=== PATIENT | female | born 1945 | race Caucasian/White ===

== ENCOUNTER 2018-07-04 09:35 | Inpatient (IN) | payer MEDICARE, OTHER, SELFPAY ==
[2018-07-04] VITALS (25 sets, daily range): BP systolic 98–130; BP diastolic 67–87; PULSE 99–112; RESP 12–31; TEMP 36.9–37.2; O2SAT 94–100; BMI 27.3; BMI 24.0
--- NOTE | 2018-07-04 09:37 | EKG12_ITS ---
Test Reason : SOB Blood Pressure : / mmHG Vent. Rate : 112 BPM Atrial Rate : 113 BPM P-R Int : 000 ms QRS Dur : 154 ms QT Int : 404 ms P-R-T Axes : 000 -87 060 degrees QTc Int : 551 ms Wide QRS rhythm Right bundle branch block Left anterior fascicular block Bifascicular block Anteroseptal infarct , age undetermined , cannot be excluded Abnormal ECG Confirmed by PORTIA SIMS, SHER ([id number]), writer editor MUNA BOYKIN ([id number]) on 07/09/2018 1:28:19 PM Referred By: AUGUST Confirmed By:SHER PEARCE MD
--- NOTE | 2018-07-04 09:37 | RAD_ITS ---
STUDY: X-RAY CHEST REASON FOR EXAM: Female, 72 years old. TECHNIQUE: COMPARISON: None. FINDINGS: The heart is not enlarged. Bilateral pleural effusion noted more so on the right side. Underlying infiltrate at either base cannot be ruled out. The apices are clear but there is mild pulmonary vascular congestion. A permanent pacemaker is seen with 2 leads in position. There is left aterial appendage closure device. Multiple metallic stitches noted along the sternum from previous surgery. Spinal fusion noted in the lower lower thoracic spine RAD/Chest 1 View (Portable) IMPRESSION: Bilateral pleural effusion more on the right side underlying infiltrate cannot be excluded Electronically Signed: Guerrero Ochoa, at 10:44 EST Tel , Service support ,
--- NOTE | 2018-07-04 09:52 | ED.DCSUM_ITS ---
- ER Visit Summary Date of Service: 07/04/18 Chief Complaint: Shortness of breath and hypoxia History of Present Illness: The patient is a 72 F who arrived by ambulance for shortness of breath. She is arousable with repeated stimulation. She does answers questions appropriately. She acknowledged that she does not wish CPR or intubation, invasive ventilation. She was spoken to regarding BiPAP and was agreeable. She recently had a pacemaker placed. According to son she had her mitral valve replaced November 2017. Her history is limited. She does acknowledge to shortness of breath, slight cough and no chest pain. Per records that accompanied her she has a history of congestive heart failure. She denied fever or chills. She denied muscle aches or joint aches. She does admit to weakness. There is no history of vomiting or diarrhea. She denies urologic symptoms. Even though patient is not alert when stimulated and ask questions she does answer questions appropriately and believes she has the capacity to make a decision regarding intubation and CPR. [facility], 2018 from home. Review of paperwork from nursing facility indicates patient has history of coronary disease, CHF, COPD, type 1 diabetes and hypercholesterolemia. Furthermore, patient is on an anticoagulant, Eliquis. Physical Examination: Vital signs remarkable blood pressure 126/73, heart rate of 112 and appears to be wide complex on the monitor. Mechanism uncertain. Respiratory 31. Pulse ox was low on nonrebreather and was placed on BiPAP. CO2 was in the low 30s. She is afebrile. HEENT exam is marked for pale conjunctival and dry mucosa. There is a well- healed mid sternotomy scar noted. There is a dressing over the recently placed pacemaker. There is no evidence of cellulitis. Lungs reveal diminished breath sounds bilaterally with inspiratory rales and expiratory wheezing. Heart is rapid. Abdomen soft nontender. No palpable cell mass abdominal bruit. There is bilateral pedal edema. Not alert but oriented to name, place and month. She moves all extremities. There is no clonus or Babinski sign. No cranial nerve deficit appreciated. Finger to nose to finger was not attempted. Test Results: White count 11.4 thousand 91% segs no bands. Hemoglobin 8.2. Electronic panel reveals slight elevation in BUN/creatinine of 25 and 1.24. Urinalysis is consistent with infection. Blood gas reveals a respiratory alkalosis with increased AA gradient. Emergency Department Course and Treatment: Patient was placed on BiPAP with marked improvement of oxygenation. ABG was ordered. Chest x-ray was ordered to determine etiology of her hypoxia and determine if this is secondary to CHF versus pneumonia. Lactate was obtained and may be elevated secondary to hypoxia. CBC was obtained to assess white count as well as H&H since she appears pale. Basic medical panel was obtained to assess electrolytes and renal function. With recent procedure wanting to entertain possibility of pulmonary embolus. If the x-ray does not reveal congestive heart failure or pneumonia she will require a CTA if renal function is sufficient. UA and culture was ordered after I was informed by nursing staff that urine appears turbid. Since patient is clinically fluid overloaded 20 of Lasix was ordered. Nitroglycerin drip was also ordered for preload reduction. Most recent blood pressure is low at 98/82. The nitroglycerin drip was held. Treatment Plan: Treat for urinary tract infection, exacerbation of CHF and transfuse if needed. Disposition: Admit to stepdown versus ICU Impression: 1. Respiratory failure with hypoxia 2. Exacerbation of congestive heart failure with bilateral pleural effusion 3. Urinary tract infection, sepsis 4. Elevated troponin suspect secondary to CHF 5. Renal insufficiency 6. History of coronary disease 7. High risk medication, Eliquis This note was generated with [employer] dictation software. It may contain incorrect words, spelling, and punctuation that were not noted in review of the chart prior to signing ED Disposition - Plan for ED Patient: Chief Complaint: Shortness of Breath Referrals: Patsy Cabrera [[employer] PROFESSIONAL] -
--- NOTE | 2018-07-04 10:01 | ED.RN ---
Addendum entered by Rachel Hernandez 07/04/18 10:28: cultures obtained and sent with iv start Original Note: upon sepsis trigger physician did not order cultures. spoke to physician, he states that he won't order cultures until lactic is back.
[2018-07-04 10:26] LABS: Absolute Neutrophil Count 10.3 X10^3/uL (2.0-7.7); Basophil# 0.03 X10^3/uL; Basophil% 0.3 % (0-1); Differential Indicated SCAN CRITERIA MET; Eosinophil# 0.06 X10^3/uL; Eosinophils% 0.5 % (0-5); Hematocrit 26.8 % (37-47); Hemoglobin 8.2 g/dl (12.0-15.0); Lymphocyte % 4.4 % (19-41); Mean Corp Hgb Conc 30.6 g/gl (32-36); Mean Corpuscular Hgb 29.1 pg (27.0-32.0); Mean Platelet Vol. 9.8 fl (6.2-12.0); Monocyte# 0.45 X10^3/uL; Monocyte% 3.9 % (0-10); Neutrophil # 10.33 X10^3/uL (2.7-7.7); Neutrophil % 90.6 % (47-70); POSITIVE COUNT NO; POSITIVE DIFFERENTIAL YES; POSITIVE MORPHOLOGY NO; Platelet Count 112 K/mm3 (150-450); RBC Distribution Width CV 18.1 % (11.6-14.6); RBC Distribution Width SD 63.4 fl (35.1-43.9); Red Blood Count 2.82 M/mm3 (4.2-5.4); White Blood Count 11.4 K/mm3 (4.4-11.0)
[2018-07-04 10:30] LABS: Mucous, Urine 0 SEEN /hpf (<or=2+); Red Blood Cells-Urine 0 SEEN /hpf (0-5); Squamous Epithelial Cells - UA 0 SEEN /hpf (5-10)
[2018-07-04 10:32] LABS: Anion Gap 9 (5-15); BUN 25 mg/dL (7-18); BUN/Creat Ratio 20.2 RATIO (10-20); Calcium,Total 7.8 mg/dL (8.5-10.1); Chloride 100 mmol/L (98-107); Creatinine, Serum 1.24 mg/dL (0.55-1.02); EST Glomerular Filtration Rate 45 mL/min (>60); Est Glom Filt Rate - Afr Amer 54 mL/min (>60); Estimated Creatinine Clearance 28.59 ml/min; Glucose 118 mg/dL (74-106); Potassium 4.4 mmol/L (3.5-5.1); Sodium Level 140 mmol/L (136-145)
[2018-07-04 10:36] LABS: Color, Urine Yellow (Yellow); Glucose, Dipstick Normal (Normal); Ketone-Dipstick 5 mg/dl (Negative); Leukocyte Esterase-Dipstick 500 /ul (Negative); Nitrite-Dipstick Positive (Negative); Occult Blood-Urine 25 /ul (Negative); Protein-Dipstick 15 mg/dl (Negative); Specific Gravity, Urine 1.015 (1.002-1.030); Urine Bilirubin Dipstick Negative (Negative); Urine Clarity Cloudy (Clear); Urine Urobilinogen Normal (Normal)
[2018-07-04 10:38] LABS: Lactic Acid 1.2 mmol/L (0.4-2.0)
[2018-07-04 10:46] LABS: Base Excess 5 mmol/L (-2 to +2); Bicarbonate 27.6 mmol/L (22-26); Blood Gas Specimen Type ART; EPAP 10; FI02 80; PO2 146 mmHG (75-100); RR 12; SITE R Radial; SO2 100 % (95-99); Time Given 1040; Total Carbon Dioxide 28 mmol/L; pCO2 30.6 mmHg (35-45); pH 7.56 (7.35-7.45)
[2018-07-04 10:47] LABS: International Normalized Ratio 1.2; Prothrombin Time (Protime)PT. 14.9 SECONDS (11.7-14.9)
[2018-07-04 10:50] LABS: Bacteria 1+ /hpf (None Seen); White Blood Cells >100 SEEN /hpf (0-5)
[2018-07-04 10:53] LABS: BNP,B-Type NATRIURETIC PEPTIDE 634.9 pg/mL (0-100)
[2018-07-04] MEDS: Furosemide 20 MG/2 ML VIAL IV (11:12)
[2018-07-04] MEDS: Ceftriaxone 1 GM/50 ML BAG IV (11:41)
--- NOTE | 2018-07-04 11:41 | ED.RN ---
nitro held d/t bp
--- NOTE | 2018-07-04 12:40 | ECHOD_ITS ---
Reason For Study: CHF Procedure This was a 2D Doppler, Color Flow transthoracic echocardiogram. The study was technically difficult. Exam performed portable in patient room. Left Ventricle Normal LV size. Left ventricular systolic function is normal. The estimated ejection fraction is 65 %. Unable to assess diastolic dysfunction. No regional wall motion abnormalities noted. Right Ventricle Normal RV size. ICD or pacer leads identified within the right ventricle. Normal systolic function. Atria The left atrium is moderately enlarged. Normal right atrium. ICD or pacer leads identified within the right atrium. No doppler evidence for ASD. Mitral Valve Moderate mitral valve stenosis. Stabel appearing prosthetic mitral valve apparatus. Trivial transvalvular insufficiency of the mitral valve. Tricuspid Valve Normal tricuspid valve. Moderate (2+) tricuspid valve insufficiency. Right ventricular systolic pressure estimated to be 47 mmHg. Aortic Valve Trisinus/trileaflet aortic valve. Mild diffuse aortic valve thickening. Severe focal aortic valve calcification. Mild aortic stenosis. Trivial aortic valve insufficiency. Pulmonic Valve The pulmonic valve is not well visualized. Great Vessels Normal sized aortic root. Pericardium/Pleural No pericardial effusion. Echolucency c/w a pleural effusion. MMode/2D Measurements & Calculations LVIDd: 2.4 cm IVSd: 0.95 cm LVOT diam: 1.8 cm LVIDs: 1.6 cm LVPWd: 0.86 cm LVOT area: 2.6 cm2 RVDd: 3.2 cm FS: 31.8 % Ao root diam: 2.5 cm LAV(MOD-sp4): 57.2 ml LA A4 area: 20.9 cm2 LA dimension(2D): 4.7 cm RA A4 area: 11.6 cm2 Doppler Measurements & Calculations MV V2 max: 206.5 cm/sec Ao V2 max: 175.0 cm/sec LV V1 max: 119.0 cm/sec MV max P.0 mmHg Ao max P.3 mmHg LV V1 max P.7 mmHg MV V2 mean: 133.5 cm/sec Ao V2 mean: 117.0 cm/sec LV V1 mean P.1 mmHg MV mean P.5 mmHg Ao mean P.3 mmHg LV V1 mean: 83.9 cm/sec MV V2 VTI: 37.9 cm Ao V2 VTI: 22.8 cm LV V1 VTI: 18.8 cm MVA(VTI): 1.3 cm2 EMIR(I,D): 2.2 cm2 EMIR(V,D): 1.8 cm2 SV(LVOT): 49.3 ml TR max norma: 330.0 cm/sec TR max P.7 mmHg Interpretation Summary The study was technically difficult. Left ventricular systolic function is normal. The estimated ejection fraction is 65 %. The left atrium is moderately enlarged. Stabel appearing prosthetic mitral valve apparatus. Moderate mitral valve stenosis. Trivial transvalvular insufficiency of the mitral valve. Moderate (2+) tricuspid valve insufficiency. Mild aortic stenosis. Trivial aortic valve insufficiency. Echolucency c/w a pleural effusion. Right ventricular systolic pressure estimated to be 47 mmHg. Unable to assess diastolic dysfunction. Comment: 2D echocardiographic images demonstrate echocardiograhic findings c/w a prosthetic mitral valve apparatus, as well as, findings potentially c/w mitral annular calcification, calcification of the submitral valve apparatus, and thickening / calcification / partial restriction of the mitral valve leaflets. Ordering Physician: Benjie Guzman Referring Physician: AJITH SAINZ Performed By: Gabriela Smalls, JEFFY, RVT
[2018-07-04 13:16] LABS: Absolute Lymphocyte Count 0.65 X10^3/ul (0.83-4.51); Absolute Neutrophil Count 9.4 X10^3/uL (2.0-7.7); Basophil# 0.03 X10^3/uL; Basophil% 0.3 % (0-1); Eosinophil# 0.03 X10^3/uL; Eosinophils% 0.3 % (0-5); Hematocrit 27.1 % (37-47); Hemoglobin 8.3 g/dl (12.0-15.0); Lymphocyte # 0.65 X10^3/ul (4.0); Lymphocyte % 6.1 % (19-41); Mean Corp Hgb Conc 30.6 g/gl (32-36); Mean Corpuscular Hgb 29.1 pg (27.0-32.0); Mean Corpuscular Volume 95.1 fL (81-99); Mean Platelet Vol. 9.5 fl (6.2-12.0); Monocyte# 0.49 X10^3/uL; Monocyte% 4.6 % (0-10); Neutrophil # 9.44 X10^3/uL (2.7-7.7); Neutrophil % 88.4 % (47-70); Platelet Count 109 K/mm3 (150-450); RBC Distribution Width CV 18.1 % (11.6-14.6); Red Blood Count 2.85 M/mm3 (4.2-5.4); White Blood Count 10.7 K/mm3 (4.4-11.0)
[2018-07-04 13:17] LABS: POSITIVE COUNT NO; POSITIVE DIFFERENTIAL NO; POSITIVE MORPHOLOGY NO
--- NOTE | 2018-07-04 16:14 | HP.PCM_ITS ---
Problem List (1) CAD (coronary artery disease) Status: Chronic (2) UTI (urinary tract infection) Status: Acute (3) CHF (congestive heart failure) Status: Acute History of Present Illness Date of Admission: 07/04/18 Chief Complaint: SOB The patient is a 72 year old F with PMH as below who presents from her intermediate with a 1 day history of shortness of breath. She is a very poor historian and most of the history is obtained from the family. They are not quite sure what medication she takes, however they do state that she had a CABG done in November of this year at [facility] though they are not sure how many vessels. Also at the time the doctor stated that they want to put in a pacemaker but they did not want to do right away. She also has a history of A. fib, and they stated that she had a history of heart failure that they are not sure what kind. He also stated that on her previous discharge from [facility] in May after a UTI with sepsis, that a lot of her medications were discontinued because of her kidney function, though not sure which medications were discontinued. In the ER today she was found to be tachycardic, hypoxic necessitating BiPAP, chest x-ray demonstrated pleural effusions and she was given 20 mg of IV Lasix. She was also found to have what appears to be a UTI based on UA, she was given a dose of IV Rocephin down in the ER. Past Medical History Past Medical History (Chronic Problems): Chronic Problems CAD (coronary artery disease) (Chronic) Allergies simvastatin [From Zocor] Allergy (Verified 07/04/18 09:48) Unknown Home Medications: Ambulatory Orders Medication Instructions Recorded Acetaminophen 650 mg PO Q4H PRN PRN 07/04/18 Apixaban [Eliquis] 2.5 mg PO BID 07/04/18 Bisacodyl 10 mg RC DAILY PRN PRN 07/04/18 Calcium Carbonate 500 mg PO TID 07/04/18 Glucagon 1 mg IM X1 PRN 07/04/18 Insulin Lispro [Humalog] 0 unit SQ 4X/DAY 07/04/18 Ipratropium/Albuterol Sulfate 3 ml INHALATION Q2H PRN PRN 07/04/18 [Duoneb] Magnesium Hydroxide [Milk Of 30 ml PO DAILY PRN PRN 07/04/18 Magnesia] Melatonin/Pyridoxine HCl (B6) 1 each PO QHS PRN PRN 07/04/18 [Melatonin 3 mg Tablet] Miconazole Nitrate 1 gm MC TID 07/04/18 Na Phos,M-B/Na Phos,Di-Ba [Fleet 133 ml RC DAILY PRN PRN 07/04/18 Enema] Omeprazole 20 mg PO DAILY 07/04/18 Sennosides [Senna] 8.6 mg PO DAILY PRN PRN 07/04/18 Surgical History: cholecystectomy, coronary bypass surgery Smoking Status: Former smoker Tobacco Use: Cigarettes Alcohol: None Drugs: None - *Family History Maternal History Items: Diabetes, Heart Disease, Hypertension Paternal History Items: Cancer, Diabetes, Heart Disease, Hypertension, Stroke Review of Systems Constitutional: Denies: Chills, Fever, Weight Change HEENT: Denies: Head Aches, Sinus Congestion, Sinus Drainage Cardiovascular: Denies: Chest Pain, Edema, Palpitations Respiratory: Reports: Shortness of Breath, Shortness of breath at rest. Denies: Cough, Sputum production Gastrointestinal: Denies: Abdominal Pain, Nausea, Vomiting Genitourinary: Denies: Dysuria Musculoskeletal: Denies: Joint Pain, Joint Tenderness Skin: Denies: Rash, Wounds Neurological: Denies: Numbness, Tingling, Focal weakness Psychiatric: Denies: Anxiety, Depression Hematologic/ Lymphatic: Denies: Easy Bruising, Easy Bleeding VTE Information - Inpt Only VTE Present on Admission: No Patient Problems: Active and Suspected Problems UTI (urinary tract infection) (Acute) CHF (congestive heart failure) (Acute) - Physical Exam General: Alert, Oriented x3, Cooperative, - - on BiPAP seems a little slow HEENT: Atraumatic, PERRLA, EOMI, Normocephalic Oral: Dry Mucosa Neck: Supple, No JVD Lungs: Clear to auscultation, Normal air movement, No rhonchi, No wheeze, No rales, Diminished Cardiovascular: Regular rate, Regular Rhythm, Normal S1, Normal S2, No murmurs Abdomen: Soft, Non Tender, Non-Distended, No Hepato-splenomegaly Extremities: No edema, Capillary Refill Less than 3 Seconds Skin: No rashes, No breakdown Neurological: Neuro grossly intact, Sensory exam intact to light touch and pain Psych/Mental Status: Normal Affect, Appropriate Vital Signs Temp Pulse Resp BP Pulse Ox 98.5 F 105 H 15 115/84 H 100 07/04/18 13:00 07/04/18 15:43 07/04/18 15:43 07/04/18 15:00 07/04/18 15:43 Oxygen Delivery Method Bi-pap Weight: 123 lb 0.287 oz Body Mass Index (BMI) 24.0 Laboratory Tests Past 24 Hrs 07/04/18 07/04/18 07/04/18 09:45 09:45 09:45 WBC 11.4 H RBC 2.82 L Hgb 8.2 L Hct 26.8 L MCV 95.0 MCH 29.1 MCHC 30.6 L RDW 18.1 H RDW Differential 63.4 H Plt Count 112 L MPV 9.8 Immature Gran % (Auto) 0.300 Neut % (Auto) 90.6 H Lymph % (Auto) 4.4 L [place] % (Auto) 3.9 Eos % (Auto) 0.5 Baso % (Auto) 0.3 Absolute Neuts (auto) 10.3 H Absolute Lymphs (auto) 0.50 L Total Counted Not Reportable PT Cancelled INR Cancelled Specimen Type Sample Site pH Bicarbonate Actual POC Total CO2 Base Excess O2 Saturation O2 % ABG pCO2 ABG pO2 Bryant Test Respiration Rate O2 Delivery Device EPAP Blood Gas Notified Whom Blood Gas Notified Time Sodium 140 Potassium 4.4 Chloride 100 Carbon Dioxide 31.0 Anion Gap 9 BUN 25 H Creatinine 1.24 H Estim Creat Clear Calc 28.59 Est GFR (MDRD) Af Amer 54 L Est GFR (MDRD) Non-Af 45 L BUN/Creatinine Ratio 20.2 H Glucose 118 H Lactic Acid Calcium 7.8 L Troponin I 0.141 H B-Natriuretic Peptide Urine Color Urine Clarity Urine pH Ur Specific [place] Urine Protein Urine Glucose (UA) Urine Ketones Urine Occult Blood Urine Nitrite Urine Bilirubin Urine Urobilinogen Ur Leukocyte Esterase Urine RBC Urine WBC Ur Squamous Epith Cells Urine Bacteria Urine Mucus 07/04/18 07/04/18 07/04/18 09:45 09:45 10:20 WBC RBC Hgb Hct MCV MCH MCHC RDW RDW Differential Plt Count MPV Immature Gran % (Auto) Neut % (Auto) Lymph % (Auto) [place] % (Auto) Eos % (Auto) Baso % (Auto) Absolute Neuts (auto) Absolute Lymphs (auto) Total Counted PT INR Specimen Type Sample Site pH Bicarbonate Actual POC Total CO2 Base Excess O2 Saturation O2 % ABG pCO2 ABG pO2 Bryant Test Respiration Rate O2 Delivery Device EPAP Blood Gas Notified Whom Blood Gas Notified Time Sodium Potassium Chloride Carbon Dioxide Anion Gap BUN Creatinine Estim Creat Clear Calc Est GFR (MDRD) Af Amer Est GFR (MDRD) Non-Af BUN/Creatinine Ratio Glucose Lactic Acid 1.2 Calcium Troponin I B-Natriuretic Peptide 634.9 H Urine Color Yellow Urine Clarity Cloudy Urine pH 6.0 Ur Specific [place] 1.015 Urine Protein 15 H Urine Glucose (UA) Normal Urine Ketones 5 H Urine Occult Blood 25 H Urine Nitrite Positive H Urine Bilirubin Negative Urine Urobilinogen Normal Ur Leukocyte Esterase 500 H Urine RBC 0 SEEN Urine WBC >100 SEEN Ur Squamous Epith Cells 0 SEEN Urine Bacteria 1+ Urine Mucus 0 SEEN 07/04/18 07/04/18 07/04/18 10:35 10:42 13:05 WBC 10.7 RBC 2.85 L Hgb 8.3 L Hct 27.1 L MCV 95.1 MCH 29.1 MCHC 30.6 L RDW 18.1 H RDW Differential 63.0 H Plt Count 109 L MPV 9.5 Immature Gran % (Auto) 0.300 Neut % (Auto) 88.4 H Lymph % (Auto) 6.1 L [place] % (Auto) 4.6 Eos % (Auto) 0.3 Baso % (Auto) 0.3 Absolute Neuts (auto) 9.4 H Absolute Lymphs (auto) 0.65 L Total Counted Not Reportable PT 14.9 INR 1.2 Specimen Type ART Sample Site R Radial pH 7.56 H Bicarbonate Actual 27.6 H POC Total CO2 28 Base Excess 5 H O2 Saturation 100 H O2 % 80 ABG pCO2 30.6 L ABG pO2 146 H Bryant Test NA Respiration Rate 12 O2 Delivery Device Bi / C PAP EPAP 10 Blood Gas Notified Whom ED Blood Gas Notified Time 1040 Sodium Potassium Chloride Carbon Dioxide Anion Gap BUN Creatinine Estim Creat Clear Calc Est GFR (MDRD) Af Amer Est GFR (MDRD) Non-Af BUN/Creatinine Ratio Glucose Lactic Acid Calcium Troponin I B-Natriuretic Peptide Urine Color Urine Clarity Urine pH Ur Specific [place] Urine Protein Urine Glucose (UA) Urine Ketones Urine Occult Blood Urine Nitrite Urine Bilirubin Urine Urobilinogen Ur Leukocyte Esterase Urine RBC Urine WBC Ur Squamous Epith Cells Urine Bacteria Urine Mucus Assessment/Plan All Active Problems UTI (urinary tract infection) (Acute) CHF (congestive heart failure) (Acute) 1. CHF exacerbation of unknown type/UTI/acute hypoxic respiratory failure/metabolic encephalopathy/elevated troponin -Based on pleural effusions on the chest x-ray, as well as a BNP of 643 -There is no comparison or medical systems since most of her cardiac care has been taken care of at [facility] -She was given 20 mg IV Lasix in the ER, will monitor for improvement and reassess dose tomorrow -Continue with Rocephin IV for UTI. -The family she is not normally confused and this tired, likely combination of CHF, UTI, hypoxia -Continue with BiPAP for now -PT/OT -Elevated troponin could be due to worsening renal function, or exacerbation of CHF. Either way we will obtain serial enzymes -Echo pending 2. A. fib/CAD status post CABG/AK I -Currently on Eliquis, which we will continue -She is not on any medications that would be typical for somebody in A. fib and who has coronary artery disease -We will obtain lipid panel in the morning -Per the family they state that some of her medications were discontinued because of her kidney function, they are not sure as to which medications -When she is a diabetic, and has CAD she would need to be on a statin as well as an BAILEE inhibitor 3. DM 2 -Came from the intermediate with a sliding scale insulin -Family is unsure of his which she is on at home -We will order sliding scale and Accu-Cheks AC at bedtime 4. GERD -Stable -Continue with PPI DVT: Eliquis Code Visit Inpatient E&M: 21754 Init Hosp L3
[2018-07-04 18:20] LABS: Cholesterol 176 mg/dL (200); High Density Lipoprotein 69 mg/dL; Triglycerides 81 mg/dL; Very Low Density Lipoprotein 16 mg/dL (5-40)
[2018-07-04 22:21] LABS: Bedside Glucose 116 mg/dL (70-110)
[2018-07-04] MEDS: Albuterol 2.5 MG/3 ML VIAL.NEB. INHALATION (23:06)
[2018-07-05] VITALS (33 sets, daily range): BP systolic 101–139; BP diastolic 67–95; PULSE 96–113; RESP 12–26; TEMP 36.3–37.1; O2SAT 90–100
[2018-07-05 06:49] LABS: Anion Gap 9 (5-15); BUN 24 mg/dL (7-18); BUN/Creat Ratio 23.3 RATIO (10-20); Calcium,Total 7.6 mg/dL (8.5-10.1); Chloride 103 mmol/L (98-107); Creatinine, Serum 1.03 mg/dL (0.55-1.02); EST Glomerular Filtration Rate 56 mL/min (>60); Est Glom Filt Rate - Afr Amer 67 mL/min (>60); Estimated Creatinine Clearance 34.42 ml/min; Glucose 92 mg/dL (74-106); Sodium Level 140 mmol/L (136-145)
[2018-07-05 06:51] LABS: Absolute Lymphocyte Count 0.64 X10^3/ul (0.83-4.51); Basophil# 0.02 X10^3/uL; Basophil% 0.2 % (0-1); Eosinophil# 0.11 X10^3/uL; Eosinophils% 1.3 % (0-5); Hematocrit 24.5 % (37-47); Hemoglobin 7.4 g/dl (12.0-15.0); Lymphocyte # 0.64 X10^3/ul (4.0); Lymphocyte % 7.8 % (19-41); Mean Corp Hgb Conc 30.2 g/gl (32-36); Mean Corpuscular Hgb 29.7 pg (27.0-32.0); Mean Corpuscular Volume 98.4 fL (81-99); Mean Platelet Vol. 10.1 fl (6.2-12.0); Monocyte# 0.45 X10^3/uL; Monocyte% 5.5 % (0-10); Neutrophil # 6.98 X10^3/uL (2.7-7.7); Platelet Count 111 K/mm3 (150-450); RBC Distribution Width CV 17.7 % (11.6-14.6); RBC Distribution Width SD 59.8 fl (35.1-43.9); Red Blood Count 2.49 M/mm3 (4.2-5.4); White Blood Count 8.2 K/mm3 (4.4-11.0)
[2018-07-05 06:53] LABS: POSITIVE COUNT NO; POSITIVE DIFFERENTIAL NO; POSITIVE MORPHOLOGY NO
[2018-07-05 06:55] LABS: Bedside Glucose 98 mg/dL (70-110)
[2018-07-05] MEDS: Albuterol 2.5 MG/3 ML VIAL.NEB. INHALATION ×5 (07:04→23:57)
--- NOTE | 2018-07-05 09:13 | CASEMGMT ---
Patient is from [facility]. GAUTAM faxed updates to [facility]. Kavya CARCAMO MSW
--- NOTE | 2018-07-05 09:36 | CASEMGMT ---
SW spoke with patient's sister in the room. Patient was sleeping. They said patient does not want to go back to [facility] and if there is a bed here she would like to stay here. SW told them SW will check to see if there are beds. SW asked if they have a 2nd choice and they said they would have to ask patient. SW called [facility] is covering for TCU and they have beds. SW will let patient and family know this information. Plan: [facility]CU when ready. Kavya CARCAMO MSW
[2018-07-05] MEDS: Ceftriaxone 1 GM/50 ML BAG IV (09:54)
[2018-07-05] MEDS: Pantoprazole Sodium 20 MG Tablet PO (09:57)
[2018-07-05] MEDS: APIXABAN 2.5 MG TABLET PO (09:57)
--- NOTE | 2018-07-05 10:00 | PN_ITS ---
Patient Problems: Active and Suspected Problems UTI (urinary tract infection) (Acute) CHF (congestive heart failure) (Acute) Subjective: Much more alert today, off the BiPAP tolerating nasal cannula. Vitals/I&O's: Vital Signs Temp Pulse Resp BP Pulse Ox 97.7 F L 110 H 18 123/76 H 95 07/05/18 05:00 07/05/18 09:00 07/05/18 09:00 07/05/18 09:00 07/05/18 09:00 Oxygen Flow Rate (L/min) 4 Oxygen Delivery Method Nasal Cannula Weight: 117 lb 11.629 oz Body Mass Index (BMI) 24.0 Intake and Output for Last 24 Hours 07/03/18 07/04/18 07/05/18 23:59 23:59 23:59 Intake Total 120 / 120 Output Total 750 / 750 100 / 100 Balance -630 / -630 -100 / -100 General: Alert, Oriented x3, Cooperative, HEENT: Atraumatic, PERRLA, EOMI, Normocephalic Oral: Dry Mucosa Neck: Supple, No JVD Lungs: Clear to auscultation, Normal air movement, No rhonchi, No wheeze, No rales, Diminished Cardiovascular: Regular rate, Regular Rhythm, Normal S1, Normal S2, No murmurs Abdomen: Soft, Non Tender, Non-Distended, No Hepato-splenomegaly Extremities: No edema, Capillary Refill Less than 3 Seconds Skin: No rashes, No breakdown Neurological: Neuro grossly intact, Sensory exam intact to light touch and pain Psych/Mental Status: Normal Affect, Appropriate Microbiology Past 72 Hours 07/04/18 10:20 Urine Catheter - [place] Urine Culture - Preliminary GNR Poss Pseudomonas sp Laboratory Results 07/04/18 09:45: WBC 11.4 H, RBC 2.82 L, Hgb 8.2 L, Hct 26.8 L, MCV 95.0, MCH 29.1, MCHC 30.6 L, RDW 18.1 H, RDW Differential 63.4 H, Plt Count 112 L, MPV 9.8, Immature Gran % (Auto) 0.300, Neut % (Auto) 90.6 H, Lymph % (Auto) 4.4 L, Placer % (Auto) 3.9, Eos % (Auto) 0.5, Baso % (Auto) 0.3, Absolute Neuts (auto) 10.3 H, Absolute Lymphs (auto) 0.50 L, Total Counted Not Reportable 07/04/18 09:45: PT Cancelled, INR Cancelled 07/04/18 09:45: Sodium 140, Potassium 4.4, Chloride 100, Carbon Dioxide 31.0, Anion Gap 9, BUN 25 H, Creatinine 1.24 H, Estim Creat Clear Calc 28.59, Est GFR (MDRD) Af Amer 54 L, Est GFR (MDRD) Non-Af 45 L, BUN/Creatinine Ratio 20.2 H, Glucose 118 H, Calcium 7.8 L, Troponin I 0.141 H 07/04/18 09:45: Lactic Acid 1.2 07/04/18 09:45: B-Natriuretic Peptide 634.9 H 07/04/18 09:45: Triglycerides 81, Cholesterol 176, LDL Cholesterol 91, VLDL Cholesterol 16, HDL Cholesterol 69 07/04/18 10:20: Urine Color Yellow, Urine Clarity Cloudy, Urine pH 6.0, Ur Specific [place] 1.015, Urine Protein 15 H, Urine Glucose (UA) Normal, Urine Ketones 5 H, Urine Occult Blood 25 H, Urine Nitrite Positive H, Urine Bilirubin Negative, Urine Urobilinogen Normal, Ur Leukocyte Esterase 500 H, Urine RBC 0 SEEN, Urine WBC >100 SEEN, Ur Squamous Epith Cells 0 SEEN, Urine Bacteria 1+, Urine Mucus 0 SEEN 07/04/18 10:35: PT 14.9, INR 1.2 07/04/18 10:42: Specimen Type ART, Sample Site R Radial, pH 7.56 H, Bicarbonate Actual 27.6 H, POC Total CO2 28, Base Excess 5 H, O2 Saturation 100 H, O2 % 80, ABG pCO2 30.6 L, ABG pO2 146 H, Bryant Test NA, Respiration Rate 12, O2 Delivery Device Bi / C PAP, EPAP 10, Blood Gas Notified Whom ED , Blood Gas Notified Time 1040 07/04/18 13:05: WBC 10.7, RBC 2.85 L, Hgb 8.3 L, Hct 27.1 L, MCV 95.1, MCH 29.1, MCHC 30.6 L, RDW 18.1 H, RDW Differential 63.0 H, Plt Count 109 L, MPV 9.5, Immature Gran % (Auto) 0.300, Neut % (Auto) 88.4 H, Lymph % (Auto) 6.1 L, Placer % (Auto) 4.6, Eos % (Auto) 0.3, Baso % (Auto) 0.3, Absolute Neuts (auto) 9.4 H, Absolute Lymphs (auto) 0.65 L, Total Counted Not Reportable 07/04/18 18:40: Troponin I 0.123 H 07/04/18 21:15: Troponin I 0.141 H 07/04/18 22:16: POC Glucose 116 H 07/05/18 00:25: Troponin I 0.097 H 07/05/18 05:55: Sodium 140, Potassium 4.0, Chloride 103, Carbon Dioxide 28.0, Anion Gap 9, BUN 24 H, Creatinine 1.03 H, Estim Creat Clear Calc 34.42, Est GFR (MDRD) Af Amer 67, Est GFR (MDRD) Non-Af 56 L, BUN/Creatinine Ratio 23.3 H, Glucose 92, Calcium 7.6 L 07/05/18 05:55: WBC 8.2, RBC 2.49 L, Hgb 7.4 L, Hct 24.5 L, MCV 98.4, MCH 29.7, MCHC 30.2 L, RDW 17.7 H, RDW Differential 59.8 H, Plt Count 111 L, MPV 10.1, Immature Gran % (Auto) 0.200, Neut % (Auto) 85.0 H, Lymph % (Auto) 7.8 L, Placer % (Auto) 5.5, Eos % (Auto) 1.3, Baso % (Auto) 0.2, Absolute Neuts (auto) 7.0, Absolute Lymphs (auto) 0.64 L, Total Counted Not Reportable 07/05/18 06:40: POC Glucose 98 07/05/18 08:40: Blood Type Pending, Antibody Screen Pending, Crossmatch See Detail Current Medications Acetaminophen (Tylenol) 650 mg PO Q4H PRN PRN PRN Reason: pain/fever Albuterol Sulfate (Ventolin Aerosols) 2.5 mg INHALATION Q2H PRN PRN PRN Reason: SHORTNESS OF BREATH Last Admin: 07/05/18 07:04 Dose: 2.5 mg Apixaban (Eliquis) 2.5 mg PO BID [facility] Last Admin: 07/04/18 22:25 Dose: Not Given Dextrose (D50w Syringe) 0 gm IV X1 PRN; Protocol PRN Reason: Hypoglycemia Glucagon () 1 mg IM .X1 PRN PRN Reason: Hypoglycemia Ceftriaxone Sodium (Rocephin) 1 gm in 50 mls @ 100 mls/hr IV Q24 [place] Insulin Human Lispro (Humalog Kwikpen (Bkc)) 0 unit SQ ACHS CECILE; Protocol Last Admin: 07/05/18 08:13 Dose: Not Given Magnesium Hydroxide (Milk Of Magnesia) 30 ml PO DAILY PRN PRN Reason: Constipation Pantoprazole Sodium (Protonix) 20 mg PO DAILY [facility] Medical Necessity - Tobacco Use Smoking Status: Former smoker Tobacco Use: Cigarettes Assessment/Plan All Active Problems UTI (urinary tract infection) (Acute) CHF (congestive heart failure) (Acute) 1. Diastolic CHF exacerbation/UTI/acute hypoxic respiratory failure/metabolic encephalopathy (resolved)/elevated troponin -Based on pleural effusions on the chest x-ray, as well as a BNP of 643 -obtained medical records from [facility], -She was given 20 mg IV Lasix in the ER, will monitor for improvement and reassess dose tomorrow -Continue with Rocephin IV for UTI. -Continue with NC for now -PT/OT -Elevated troponin could be due to worsening renal function, or exacerbation of CHF. Consult cardiology -Echo EF of 65% which is similar to her previous echo earlier this month at [place], diastolic function could not be evaluated due to her A. fib 2. A. fib/CAD status post CABG/NATI (resolved)/status post pacemaker for sick sinus syndrome/acute anemia -Currently on Eliquis, will discontinue given her recent anemia unsure if this is iron deficiency versus his blood loss, will transfuse 1 unit today and obtain fecal occult -She is not on any medications that would be typical for somebody in A. fib and who has coronary artery disease -Per the family they state that some of her medications were discontinued because of her kidney function, they are not sure as to which medications -When she is a diabetic, and has CAD she would need to be on a statin as well as an BAILEE inhibitor -We will add Lasix today 3. DM 2 -Came from the correction with a sliding scale insulin -Family is unsure of what she is on at home -We will order sliding scale and Accu-Cheks AC at bedtime 4. GERD -Stable -Continue with PPI DVT: Eliquis Code Visit Inpatient E&M: 70102 Subs Hosp L2
[2018-07-05] MEDS: Furosemide 40 MG/4 ML Vial IV ×2 (10:58→21:56)
--- NOTE | 2018-07-05 11:17 | CASEMGMT ---
SW spoke with patient and her family. SW let them know there will be a bed in TCU. They were all in agreement with patient going to [facility] TCU at d/c. GAUTAM notified Adriana at [facility]. She asked SW to tell family as they are paying to have the bed held at [facility]. SW will let family know this information. Plan: [facility] TCU at d/c. Kavya RADER
[2018-07-05 11:25] LABS: Bedside Glucose 111 mg/dL (70-110)
--- NOTE | 2018-07-05 11:37 | NURSING ---
wound photo: left forearm
[2018-07-05] MEDS: 0.9% NaCl IVPB Med Flush (250 mL) 15 ML IV ×2 (12:00→15:30)
--- NOTE | 2018-07-05 13:33 | CASEMGMT ---
SW spoke with patient's sister, Beatrice. SW told her that per Adriana at [facility] they are paying to keep her bed at [facility]. SW told her to call Adriana at [facility] to discuss this information. SW also made sure she understood TCU is not a [facility] self service store facility so if patient is not able to go home after her rehab she would have to transfer to another facility. She verbalized understanding. Plan: [facility] TCU when medically ready. Kavya CARCAMO MSW
--- NOTE | 2018-07-05 14:48 | PCM.CONS.C ---
Problem List (1) CHF (congestive heart failure) Status: Acute Qualifiers: Heart failure type: diastolic Heart failure chronicity: acute on chronic Qualified Code(s): I50.33 - Acute on chronic diastolic (congestive) heart failure Reason for Consult Date of Consultation: 07/05/18 History of Present Illness: The patient is a 72 year old F with PMH as below who presents from her intermediate with a 1 day history of shortness of breath. She is a very poor historian and most of the history is obtained from the family. They are not quite sure what medication she takes, however they do state that she had a CABG done in November of this year at [facility] though they are not sure how many vessels. Also at the time the doctor stated that they want to put in a pacemaker but they did not want to do right away. She also has a history of A. fib, and they stated that she had a history of heart failure that they are not sure what kind. He also stated that on her previous discharge from [facility] in May after a UTI with sepsis, that a lot of her medications were discontinued because of her kidney function, though not sure which medications were discontinued. In the ER today she was found to be tachycardic, hypoxic necessitating BiPAP, chest x-ray demonstrated pleural effusions and she was given 20 mg of IV Lasix. She was also found to have what appears to be a UTI based on UA, she was given a dose of IV Rocephin down in the ER. Minimally elevated troponin was also noted. [] Past Medical History Allergies/Adverse Reactions: Allergies simvastatin [From Zocor] Allergy (Verified 07/04/18 09:48) Unknown Home Medications: Ambulatory Orders Medication Instructions Recorded Acetaminophen 650 mg PO Q4H PRN PRN 07/04/18 Apixaban [Eliquis] 2.5 mg PO BID 07/04/18 Bisacodyl 10 mg RC DAILY PRN PRN 07/04/18 Calcium Carbonate 500 mg PO TID 07/04/18 Glucagon 1 mg IM X1 PRN 07/04/18 Insulin Lispro [Humalog] 0 unit SQ 4X/DAY 07/04/18 Ipratropium/Albuterol Sulfate 3 ml INHALATION Q2H PRN PRN 07/04/18 [Duoneb] Magnesium Hydroxide [Milk Of 30 ml PO DAILY PRN PRN 07/04/18 Magnesia] Melatonin/Pyridoxine HCl (B6) 1 each PO QHS PRN PRN 07/04/18 [Melatonin 3 mg Tablet] Miconazole Nitrate 1 gm MC TID 07/04/18 Na Phos,M-B/Na Phos,Di-Ba [Fleet 133 ml RC DAILY PRN PRN 07/04/18 Enema] Omeprazole 20 mg PO DAILY 07/04/18 Sennosides [Senna] 8.6 mg PO DAILY PRN PRN 07/04/18 Past Medical History (Chronic Problems): Chronic Problems CAD (coronary artery disease) (Chronic) Surgical History: cholecystectomy, coronary bypass surgery, - - Mitral valve replacement, and permanent pacemaker. - *Family History Maternal History Items: Diabetes, Heart Disease, Hypertension Paternal History Items: Cancer, Diabetes, Heart Disease, Hypertension, Stroke Smoking Status: Former smoker Tobacco Use: Cigarettes Alcohol: None Drugs: None Objective: Vital Signs Temp Pulse Resp BP Pulse Ox 98.1 F 111 H 23 H 122/80 H 100 07/05/18 13:00 07/05/18 13:00 07/05/18 13:00 07/05/18 13:00 07/05/18 13:00 Oxygen Flow Rate (L/min) 4 Oxygen Delivery Method Nasal Cannula Weight: 53.4 kg Body Mass Index (BMI) 24.0 Intake and Output for Last 24 Hours 07/03/18 07/04/18 07/05/18 23:59 23:59 23:59 Intake Total 120 / 120 309 / 309 Output Total 750 / 750 450 / 450 Balance -630 / -630 -141 / -141 General: Oriented x 3, - - Chronically ill looking. HEENT: EOMI Neck: Supple Chest Wall: Midline Sternotomy Incision Lungs: - - Severly diminished air entry bilatterally. Cardiovascular: Regular Rhythm, No Rubs Murmur Murmur: Grade 2/6, [place] Vascular: No Carotid Bruits Abdomen: Soft, Non Tender Extremities: Abnormal Capillary Refill, Trace RLE Edema, Trace LLE Edema Neurological: No Focal Motor or Sensory Deficit Psych/Mental Status: Appropriate 07/04/18 09:45: Triglycerides 81, Cholesterol 176, LDL Cholesterol 91, VLDL Cholesterol 16, HDL Cholesterol 69 07/04/18 18:40: Troponin I 0.123 H 07/04/18 21:15: Troponin I 0.141 H 07/05/18 00:25: Troponin I 0.097 H 07/05/18 05:55: Sodium 140, Potassium 4.0, Chloride 103, Carbon Dioxide 28.0, Anion Gap 9, BUN 24 H, Creatinine 1.03 H, Est GFR (MDRD) Af Amer 67, Est GFR (MDRD) Non-Af 56 L, BUN/Creatinine Ratio 23.3 H, Glucose 92, Calcium 7.6 L 07/05/18 05:55: WBC 8.2, RBC 2.49 L, Hgb 7.4 L, Hct 24.5 L, MCV 98.4, MCH 29.7, MCHC 30.2 L, RDW 17.7 H, RDW Differential 59.8 H, Plt Count 111 L, MPV 10.1, Immature Gran % (Auto) 0.200, Neut % (Auto) 85.0 H, Lymph % (Auto) 7.8 L, [place] % (Auto) 5.5, Eos % (Auto) 1.3, Baso % (Auto) 0.2, Absolute Neuts (auto) 7.0, Total Counted Not Reportable Rhythm: Sinus, Paced QRS EKG: Sinus, Paced QRS. ECHO: P. Assessment/Plan Acutely decompensated chronic CHF, Preserved EF, class 2-3. Minimally elevated Trop., Type 2 [place]. Normally functioning Permanent pacer, DDD. Mild mitral stenosis, partially opening prosthetic valve, followed up at [place], although the family wishes not to return there again. Suggest continuing mild diuresis, optimizing medications. Sepsis, being addressed by the atending. Will FU at AM.
--- NOTE | 2018-07-05 20:57 | CPS ---
pt refusing bipap at this time
[2018-07-05] MEDS: Metoprolol Tartrate 25 MG Tablet PO (21:31)
[2018-07-05] MEDS: Insulin Lispro 100 UNIT/ML INSULN.PEN SQ (21:32)
[2018-07-05 21:56] LABS: Bedside Glucose 181 mg/dL (70-110)
[2018-07-05 22:11] LABS: Bedside Glucose 253 mg/dL (70-110)
[2018-07-06] VITALS (27 sets, daily range): BP systolic 104–131; BP diastolic 67–79; PULSE 88–111; RESP 12–22; TEMP 36.4–36.9; O2SAT 92–95
[2018-07-06 06:45] LABS: Anion Gap 9 (5-15); BUN 20 mg/dL (7-18); Calcium,Total 7.9 mg/dL (8.5-10.1); Chloride 102 mmol/L (98-107); Creatinine, Serum 1.11 mg/dL (0.55-1.02); EST Glomerular Filtration Rate 51 mL/min (>60); Est Glom Filt Rate - Afr Amer 62 mL/min (>60); Estimated Creatinine Clearance 31.94 ml/min; Glucose 170 mg/dL (74-106); Potassium 3.7 mmol/L (3.5-5.1); Sodium Level 140 mmol/L (136-145)
[2018-07-06 06:51] LABS: Bedside Glucose 169 mg/dL (70-110)
[2018-07-06 06:54] LABS: Absolute Lymphocyte Count 0.59 X10^3/ul (0.83-4.51); Absolute Neutrophil Count 8.3 X10^3/uL (2.0-7.7); Basophil# 0.04 X10^3/uL; Basophil% 0.4 % (0-1); Differential Indicated SCAN CRITERIA MET; Eosinophil# 0.06 X10^3/uL; Eosinophils% 0.6 % (0-5); Hemoglobin 9.8 g/dl (12.0-15.0); Lymphocyte # 0.59 X10^3/ul (4.0); Lymphocyte % 6.2 % (19-41); Mean Corp Hgb Conc 31.6 g/gl (32-36); Mean Corpuscular Hgb 29.8 pg (27.0-32.0); Mean Corpuscular Volume 94.2 fL (81-99); Mean Platelet Vol. 9.9 fl (6.2-12.0); Monocyte# 0.53 X10^3/uL; Monocyte% 5.5 % (0-10); POSITIVE COUNT NO; POSITIVE DIFFERENTIAL YES; POSITIVE MORPHOLOGY NO; Platelet Count 113 K/mm3 (150-450); RBC Distribution Width CV 17.3 % (11.6-14.6); RBC Distribution Width SD 57.5 fl (35.1-43.9); Red Blood Count 3.29 M/mm3 (4.2-5.4); White Blood Count 9.6 K/mm3 (4.4-11.0)
--- NOTE | 2018-07-06 07:36 | PCM.PN.HOSP ---
Patient Problems: Active and Suspected Problems UTI (urinary tract infection) (Acute) CHF (congestive heart failure) (Acute) Subjective: She had an episode of shortness of breath last night that necessitated a dose of IV Lasix. She currently seems to be doing okay, she is not having any chest pain, and she is currently undergoing a breathing treatment. Vitals/I&O's: Vital Signs Temp Pulse Resp BP Pulse Ox 97.6 F L 109 H 18 113/67 95 07/06/18 04:45 07/06/18 06:13 07/06/18 06:13 07/06/18 04:45 07/06/18 06:13 Oxygen Flow Rate (L/min) 3 Oxygen Delivery Method Nasal Cannula Weight: 117 lb 11.629 oz Body Mass Index (BMI) 24.0 Intake and Output for Last 24 Hours 07/04/18 07/05/18 07/06/18 23:59 23:59 23:59 Intake Total 120 / 120 1169 / 1169 Output Total 750 / 750 1150 / 1150 450 / 450 Balance -630 / -630 19 / 19 -450 / -450 General: Alert, Oriented x3, Cooperative, HEENT: Atraumatic, PERRLA, EOMI, Normocephalic Oral: Dry Mucosa Neck: Supple, No JVD Lungs: Clear to auscultation, Normal air movement, No rhonchi, No wheeze, No rales, Diminished at bases Cardiovascular: Regular rate, Regular Rhythm, Normal S1, Normal S2, No murmurs Abdomen: Soft, Non Tender, Non-Distended, No Hepato-splenomegaly Extremities: No edema, Capillary Refill Less than 3 Seconds Skin: No rashes, No breakdown Neurological: Neuro grossly intact, Sensory exam intact to light touch and pain Psych/Mental Status: Normal Affect, Appropriate Microbiology Past 72 Hours 07/05/18 14:40 Stool Stool Occult Blood ([place]) - Final 07/04/18 10:20 Urine Catheter - [place] Urine Culture - Preliminary GNR Poss Pseudomonas sp Laboratory Results 07/05/18 08:40: Blood Type O NEGATIVE, Antibody Screen NEGATIVE, Crossmatch See Detail 07/05/18 10:59: POC Glucose 111 H 07/05/18 17:23: POC Glucose 181 H 07/05/18 21:23: POC Glucose 253 H 07/06/18 06:03: WBC 9.6, RBC 3.29 L, Hgb 9.8 L, Hct 31.0 L, MCV 94.2, MCH 29.8, MCHC 31.6 L, RDW 17.3 H, RDW Differential 57.5 H, Plt Count 113 L, MPV 9.9, Immature Gran % (Auto) 0.300, Neut % (Auto) 87.0 H, Lymph % (Auto) 6.2 L, [place] % (Auto) 5.5, Eos % (Auto) 0.6, Baso % (Auto) 0.4, Absolute Neuts (auto) 8.3 H, Absolute Lymphs (auto) 0.59 L, Total Counted Not Reportable 07/06/18 06:03: Sodium 140, Potassium 3.7, Chloride 102, Carbon Dioxide 29.0, Anion Gap 9, BUN 20 H, Creatinine 1.11 H, Estim Creat Clear Calc 31.94, Est GFR (MDRD) Af Amer 62, Est GFR (MDRD) Non-Af 51 L, BUN/Creatinine Ratio 18.0, Glucose 170 H, Calcium 7.9 L 07/06/18 06:44: POC Glucose 169 H Current Medications Acetaminophen (Tylenol) 650 mg PO Q4H PRN PRN PRN Reason: pain/fever Albuterol Sulfate (Ventolin Aerosols) 2.5 mg INHALATION Q2H PRN PRN PRN Reason: SHORTNESS OF BREATH Last Admin: 07/05/18 23:57 Dose: 2.5 mg Dextrose (D50w Syringe) 0 gm IV X1 PRN; Protocol PRN Reason: Hypoglycemia Glucagon () 1 mg IM .X1 PRN PRN Reason: Hypoglycemia Ceftriaxone Sodium (Rocephin) 1 gm in 50 mls @ 100 mls/hr IV Q24 CECILE Last Admin: 07/05/18 09:54 Dose: 100 mls/hr Sodium Chloride () 250 mls @ 15 mls/hr IV .[id number] PRN PRN Reason: SALINE FLUSH Last Admin: 07/05/18 15:30 Dose: 15 mls/hr Sodium Chloride () 250 mls @ 15 mls/hr IV .[id number] PRN PRN Reason: SALINE FLUSH Insulin Human Lispro (Humalog Kwikpen (Bkc)) 0 unit SQ ACHS CECILE; Protocol Last Admin: 07/05/18 21:32 Dose: 3 units Magnesium Hydroxide (Milk Of Magnesia) 30 ml PO DAILY PRN PRN Reason: Constipation Metoprolol Tartrate (Lopressor (Beta Tiarra)) 50 mg PO BID [facility] Pantoprazole Sodium (Protonix) 20 mg PO DAILY [facility] Last Admin: 07/05/18 09:57 Dose: 20 mg Sodium Chloride () 5 - 15 ml IV UD PRN PRN Reason: SALINE FLUSH Medical Necessity - Tobacco Use Smoking Status: Former smoker Tobacco Use: Cigarettes Assessment/Plan All Active Problems UTI (urinary tract infection) (Acute) CHF (congestive heart failure) (Acute) 1. Diastolic CHF exacerbation/UTI/acute hypoxic respiratory failure/metabolic encephalopathy (resolved)/elevated troponin -Based on pleural effusions on the chest x-ray, as well as a BNP of 643 -Lasix 40 mg p.o. daily -Urine culture with Pseudomonas sensitive to Cipro, will change antibiotic to Cipro 500 mg p.o. twice daily -Continue with NC for now, will repeat chest x-ray and see if pleural effusions have improved. -PT/OT -Elevated troponin could be due to worsening renal function, or exacerbation of CHF. Consult cardiology, appreciate recs -Echo EF of 65% which is similar to her previous echo earlier this month at [place], diastolic function could not be evaluated due to her A. fib 2. A. fib/CAD status post CABG/NATI (resolved)/status post pacemaker for sick sinus syndrome/acute anemia -Hemoccult is negative and her hemoglobin responded to 9.8, will resume Eliquis -She is not on any medications that would be typical for somebody in A. fib and who has coronary artery disease -Per the family they state that some of her medications were discontinued because of her kidney function, they are not sure as to which medications -She is a diabetic, and has CAD she would need to be on a statin as well as an BAILEE inhibitor -We will need to monitor kidney function closely -Start her on metoprolol 50 mg twice daily to better rate control. 3. DM 2 -Came from the group home with a sliding scale insulin -Family is unsure of what she is on at home -We will order sliding scale and Accu-Cheks AC at bedtime 4. GERD -Stable -Continue with PPI DVT: Eliquis Code Visit Inpatient E&M: 15556 Subs Hosp L2
--- NOTE | 2018-07-06 07:40 | PN_ITS ---
Patient Problems: Active and Suspected Problems UTI (urinary tract infection) (Acute) CHF (congestive heart failure) (Acute) Subjective: She had an episode of shortness of breath last night that necessitated a dose of IV Lasix. She currently seems to be doing okay, she is not having any chest pain, and she is currently undergoing a breathing treatment. Vitals/I&O's: Vital Signs Temp Pulse Resp BP Pulse Ox 97.6 F L 109 H 18 113/67 95 07/06/18 04:45 07/06/18 06:13 07/06/18 06:13 07/06/18 04:45 07/06/18 06:13 Oxygen Flow Rate (L/min) 3 Oxygen Delivery Method Nasal Cannula Weight: 117 lb 11.629 oz Body Mass Index (BMI) 24.0 Intake and Output for Last 24 Hours 07/04/18 07/05/18 07/06/18 23:59 23:59 23:59 Intake Total 120 / 120 1169 / 1169 Output Total 750 / 750 1150 / 1150 450 / 450 Balance -630 / -630 19 / 19 -450 / -450 General: Alert, Oriented x3, Cooperative, HEENT: Atraumatic, PERRLA, EOMI, Normocephalic Oral: Dry Mucosa Neck: Supple, No JVD Lungs: Clear to auscultation, Normal air movement, No rhonchi, No wheeze, No rales, Diminished at bases Cardiovascular: Regular rate, Regular Rhythm, Normal S1, Normal S2, No murmurs Abdomen: Soft, Non Tender, Non-Distended, No Hepato-splenomegaly Extremities: No edema, Capillary Refill Less than 3 Seconds Skin: No rashes, No breakdown Neurological: Neuro grossly intact, Sensory exam intact to light touch and pain Psych/Mental Status: Normal Affect, Appropriate Microbiology Past 72 Hours 07/05/18 14:40 Stool Stool Occult Blood ([facility]OUR[facility]) - Final 07/04/18 10:20 Urine Catheter - [place] Urine Culture - Preliminary GNR Poss Pseudomonas sp Laboratory Results 07/05/18 08:40: Blood Type O NEGATIVE, Antibody Screen NEGATIVE, Crossmatch See Detail 07/05/18 10:59: POC Glucose 111 H 07/05/18 17:23: POC Glucose 181 H 07/05/18 21:23: POC Glucose 253 H 07/06/18 06:03: WBC 9.6, RBC 3.29 L, Hgb 9.8 L, Hct 31.0 L, MCV 94.2, MCH 29.8, MCHC 31.6 L, RDW 17.3 H, RDW Differential 57.5 H, Plt Count 113 L, MPV 9.9, Immature Gran % (Auto) 0.300, Neut % (Auto) 87.0 H, Lymph % (Auto) 6.2 L, [place] % (Auto) 5.5, Eos % (Auto) 0.6, Baso % (Auto) 0.4, Absolute Neuts (auto) 8.3 H, Absolute Lymphs (auto) 0.59 L, Total Counted Not Reportable 07/06/18 06:03: Sodium 140, Potassium 3.7, Chloride 102, Carbon Dioxide 29.0, Anion Gap 9, BUN 20 H, Creatinine 1.11 H, Estim Creat Clear Calc 31.94, Est GFR (MDRD) Af Amer 62, Est GFR (MDRD) Non-Af 51 L, BUN/Creatinine Ratio 18.0, Glucose 170 H, Calcium 7.9 L 07/06/18 06:44: POC Glucose 169 H Current Medications Acetaminophen (Tylenol) 650 mg PO Q4H PRN PRN PRN Reason: pain/fever Albuterol Sulfate (Ventolin Aerosols) 2.5 mg INHALATION Q2H PRN PRN PRN Reason: SHORTNESS OF BREATH Last Admin: 07/05/18 23:57 Dose: 2.5 mg Dextrose (D50w Syringe) 0 gm IV X1 PRN; Protocol PRN Reason: Hypoglycemia Glucagon () 1 mg IM .X1 PRN PRN Reason: Hypoglycemia Ceftriaxone Sodium (Rocephin) 1 gm in 50 mls @ 100 mls/hr IV Q24 [facility] Last Admin: 07/05/18 09:54 Dose: 100 mls/hr Sodium Chloride () 250 mls @ 15 mls/hr IV .[id number] PRN PRN Reason: SALINE FLUSH Last Admin: 07/05/18 15:30 Dose: 15 mls/hr Sodium Chloride () 250 mls @ 15 mls/hr IV .[id number] PRN PRN Reason: SALINE FLUSH Insulin Human Lispro (Humalog Kwikpen (Bkc)) 0 unit SQ ACHS [facility]; Protocol Last Admin: 07/05/18 21:32 Dose: 3 units Magnesium Hydroxide (Milk Of Magnesia) 30 ml PO DAILY PRN PRN Reason: Constipation Metoprolol Tartrate (Lopressor (Beta Tiarra)) 50 mg PO BID [facility] Pantoprazole Sodium (Protonix) 20 mg PO DAILY [facility] Last Admin: 07/05/18 09:57 Dose: 20 mg Sodium Chloride () 5 - 15 ml IV UD PRN PRN Reason: SALINE FLUSH Medical Necessity - Tobacco Use Smoking Status: Former smoker Tobacco Use: Cigarettes Assessment/Plan All Active Problems UTI (urinary tract infection) (Acute) CHF (congestive heart failure) (Acute) 1. Diastolic CHF exacerbation/UTI/acute hypoxic respiratory failure/metabolic encephalopathy (resolved)/elevated troponin -Based on pleural effusions on the chest x-ray, as well as a BNP of 643 -Lasix 40 mg p.o. daily -Urine culture with Pseudomonas sensitive to Cipro, will change antibiotic to Cipro 500 mg p.o. twice daily -Continue with NC for now, will repeat chest x-ray and see if pleural effusions have improved. -PT/OT -Elevated troponin could be due to worsening renal function, or exacerbation of CHF. Consult cardiology, appreciate recs -Echo EF of 65% which is similar to her previous echo earlier this month at [place], diastolic function could not be evaluated due to her A. fib 2. A. fib/CAD status post CABG/NATI (resolved)/status post pacemaker for sick sinus syndrome/acute anemia -Hemoccult is negative and her hemoglobin responded to 9.8, will resume Eliquis -She is not on any medications that would be typical for somebody in A. fib and who has coronary artery disease -Per the family they state that some of her medications were discontinued because of her kidney function, they are not sure as to which medications -She is a diabetic, and has CAD she would need to be on a statin as well as an BAILEE inhibitor -We will need to monitor kidney function closely -Start her on metoprolol 50 mg twice daily to better rate control. 3. DM 2 -[facility]ame [facility] with a sliding scale insulin -Family is unsure of what she is on at home -We will order sliding scale and Accu-Cheks AC at bedtime 4. GERD -Stable -Continue with PPI DVT: Eliquis Code Visit Inpatient E&M: [id number] Subs Hosp L2
[2018-07-06] MEDS: Insulin Lispro 100 UNIT/ML INSULN.PEN SQ ×3 (08:25→21:59)
--- NOTE | 2018-07-06 09:43 | PN.CARD_ITS ---
Objective: Vital Signs Temp Pulse Resp BP Pulse Ox 97.6 F L 108 H 18 113/67 94 07/06/18 04:45 07/06/18 07:16 07/06/18 06:13 07/06/18 04:45 07/06/18 07:27 Oxygen Flow Rate (L/min) 3 Oxygen Delivery Method Nasal Cannula Weight: 53.4 kg Body Mass Index (BMI) 24.0 Intake and Output for Last 24 Hours 07/04/18 07/05/18 07/06/18 23:59 23:59 23:59 Intake Total 120 / 120 1169 / 1169 Output Total 750 / 750 1150 / 1150 450 / 450 Balance -630 / -630 19 / 19 -450 / -450 Mild regular tachy, probably sinus with normally tracking DDD. General: Awake, Alert, Oriented x 3, Cooperative Neck: No JVD Chest Wall: - - Slowly healing pacemaker pocket wound. Lungs: Diminished [place] Bases Cardiovascular: Regular Rhythm, No Murmurs Extremities: No edema Neurological: No Focal Motor or Sensory Deficit 07/06/18 06:03: WBC 9.6, RBC 3.29 L, Hgb 9.8 L, Hct 31.0 L, MCV 94.2, MCH 29.8, MCHC 31.6 L, RDW 17.3 H, RDW Differential 57.5 H, Plt Count 113 L, MPV 9.9, Immature Gran % (Auto) 0.300, Neut % (Auto) 87.0 H, Lymph % (Auto) 6.2 L, [place] % (Auto) 5.5, Eos % (Auto) 0.6, Baso % (Auto) 0.4, Absolute Neuts (auto) 8.3 H, Total Counted Not Reportable 07/06/18 06:03: Sodium 140, Potassium 3.7, Chloride 102, Carbon Dioxide 29.0, Anion Gap 9, BUN 20 H, Creatinine 1.11 H, Est GFR (MDRD) Af Amer 62, Est GFR (MDRD) Non-Af 51 L, BUN/Creatinine Ratio 18.0, Glucose 170 H, Calcium 7.9 L Rhythm: Regular rhythm, tachy, DDD paced. EKG: ECHO: Preserved LV EF, Bioprosthetic MV, mild to moderate mitral stenosis, CXR: Pleual effusion, 07/04/18. Medical Necessity - Tobacco Use Smoking Status: Former smoker Tobacco Use: Cigarettes Assessment/Plan Acutely decompensated chronic CHF, Preserved EF, class 2-3. Improving. Minimally elevated Trop., Type 2 [place]. Normally functioning Permanent pacer, DDD. Mild to moderate mitral stenosis, partially opening prosthetic valve, followed up at [place], although the family wishes not to return there again. Suggest continuing mild diuresis, optimizing medications. Sepsis, being addressed by the attending. May benefit from evaluation of the Pleural effusion, size and thoracentesis, if very large, Continue with CHF optimization. Meds were stopped when she presented with Sepsis syndrome and hypotension. Will FU at AM.
[2018-07-06] MEDS: Ciprofloxacin 500 MG Tablet PO ×2 (10:14→21:59)
[2018-07-06] MEDS: Lisinopril 5 MG Tablet PO (10:17)
[2018-07-06] MEDS: Furosemide 40 MG Tablet PO (10:17)
[2018-07-06] MEDS: Metoprolol Tartrate 50 MG Tablet PO (10:17)
[2018-07-06] MEDS: Pantoprazole Sodium 20 MG Tablet PO (10:18)
[2018-07-06] MEDS: Albuterol 2.5 MG/3 ML VIAL.NEB. INHALATION ×5 (11:04→22:30)
--- NOTE | 2018-07-06 11:08 | NURSING ---
Patient refused to have monzon removed at this time. pt educated on increased risk for UTI but still not wanting it done at this time. Will discuss again later
[2018-07-06 11:31] LABS: Bedside Glucose 257 mg/dL (70-110)
--- NOTE | 2018-07-06 13:15 | RAD_ITS ---
STUDY: X-RAY CHEST REASON FOR EXAM: Female, 72 years old. CHF sepsis TECHNIQUE: PA and lateral views of the chest. COMPARISON: July 04, 2018 chest x-ray FINDINGS: A large bilateral effusions similar to prior study. There is a left-sided pacemaker leads overlying the heart. # There is moderate cardiac enlargement. There is a visualized cardiac valve prosthesis. Normal mediastinum and billy. Normal visualized pulmonary arteries. There is atherosclerotic calcification of the aortic arch with tortuosity. There are diffuse degenerative changes of the visualized thoracic spine. Normal visualized ribs, clavicles, and shoulders. There is no demonstrated abnormality of the visualized soft tissue structures of the upper abdomen. RAD/Chest PA and Lateral IMPRESSION: Large bilateral effusions atelectasis persistent since prior study pacemaker status post sternotomy. Electronically Signed: Susan Murphy MD at 18:16 EST Tel , Service support ,
--- NOTE | 2018-07-06 14:57 | CASEMGMT ---
Social Work Abigail in TCU notified that per physician pt is not ready for d/c today but possibly over the weekend. Room is available on TCU when pt is medically ready. SW met with pt in room and informed her of above. Pt is agreeable to d/c to TCU when ready. Plan: TCU, when medically ready NIKOLAS Lord
--- NOTE | 2018-07-06 15:28 | NURSING ---
This RN taking over care for this patient at this time
[2018-07-06 16:41] LABS: Bedside Glucose 147 mg/dL (70-110)
--- NOTE | 2018-07-06 18:13 | NURSING ---
Reviewed and agreed on all charting with Kinjla Caraballo RN
[2018-07-06] MEDS: APIXABAN 2.5 MG TABLET PO (21:59)
[2018-07-06] MEDS: Atorvastatin Calcium 40 MG Tablet PO (22:00)
[2018-07-06] MEDS: Metoprolol Tartrate 100 MG Tablet PO (22:00)
--- NOTE | 2018-07-06 23:32 | NURSING ---
During PM med pass, pt still had not voided since [place] was removed around 18:00. Pt bladder scanned for 0 mL at this time. Will continue to monitor.
[2018-07-07] VITALS (24 sets, daily range): BP systolic 104–121; BP diastolic 66–83; PULSE 94–110; RESP 12–26; TEMP 36.3–36.6; O2SAT 85–97
[2018-07-07 00:21] LABS: Bedside Glucose 188 mg/dL (70-110)
[2018-07-07] MEDS: Albuterol 2.5 MG/3 ML VIAL.NEB. INHALATION ×4 (00:30→15:21)
[2018-07-07 06:15] LABS: Absolute Neutrophil Count 7.6 X10^3/uL (2.0-7.7); Basophil# 0.04 X10^3/uL; Basophil% 0.4 % (0-1); Eosinophil# 0.06 X10^3/uL; Eosinophils% 0.7 % (0-5); Hematocrit 31.3 % (37-47); Hemoglobin 9.9 g/dl (12.0-15.0); Lymphocyte % 6.7 % (19-41); Mean Corp Hgb Conc 31.6 g/gl (32-36); Mean Corpuscular Hgb 29.8 pg (27.0-32.0); Mean Corpuscular Volume 94.3 fL (81-99); Mean Platelet Vol. 9.8 fl (6.2-12.0); Monocyte# 0.55 X10^3/uL; Monocyte% 6.2 % (0-10); Neutrophil # 7.62 X10^3/uL (2.7-7.7); Neutrophil % 85.8 % (47-70); Platelet Count 103 K/mm3 (150-450); RBC Distribution Width CV 17.5 % (11.6-14.6); RBC Distribution Width SD 60.7 fl (35.1-43.9); Red Blood Count 3.32 M/mm3 (4.2-5.4); White Blood Count 8.9 K/mm3 (4.4-11.0)
[2018-07-07] MEDS: 0.9% NaCl Peripheral Flush Adult/Peds IV ×2 (06:20→06:21)
[2018-07-07] MEDS: Furosemide 40 MG/4 ML Vial IV ×2 (06:20→22:27)
[2018-07-07 06:24] LABS: Anion Gap 10 (5-15); BUN 17 mg/dL (7-18); BUN/Creat Ratio 17.2 RATIO (10-20); Calcium,Total 7.8 mg/dL (8.5-10.1); Chloride 103 mmol/L (98-107); Creatinine, Serum 0.99 mg/dL (0.55-1.02); EST Glomerular Filtration Rate 58 mL/min (>60); Est Glom Filt Rate - Afr Amer 70 mL/min (>60); Estimated Creatinine Clearance 35.81 ml/min; Glucose 123 mg/dL (74-106); POSITIVE COUNT NO; POSITIVE DIFFERENTIAL YES; POSITIVE MORPHOLOGY NO; Potassium 3.4 mmol/L (3.5-5.1); Sodium Level 142 mmol/L (136-145)
[2018-07-07 06:25] LABS: Differential Indicated SCAN CRITERIA MET
[2018-07-07 06:52] LABS: Anisocytosis 1+; Differential Comment SCANNED; Platelet Estimate MOD DEC (ADEQ); Poikilocytosis RARE
[2018-07-07 07:05] LABS: Bedside Glucose 170 mg/dL (70-110)
--- NOTE | 2018-07-07 07:33 | NURSING ---
This AM, pt c/o difficulty breathing. Pt found to be satting 82% on 4L NC. Placed on 50% Venti mask for 1-2 minutes which only brought pt up to about 85%. Respiratory was called. Respiratory placed pt on Bipap. Pt saturations bre to 92. notified that pt placed on bipap. ordered Lasix 40 mg IV X1.
--- NOTE | 2018-07-07 08:20 | PCM.PN.HOSP ---
Patient Problems: Active and Suspected Problems UTI (urinary tract infection) (Acute) CHF (congestive heart failure) (Acute) Subjective: Continues to be short of breath and required another dose of IV Lasix this morning as well as being put back on BiPAP. She denies any chest pain. Vitals/I&O's: Vital Signs Temp Pulse Resp BP Pulse Ox 97.6 F L 108 H 18 115/81 H 96 07/07/18 03:37 07/07/18 07:35 07/07/18 07:35 07/07/18 03:37 07/07/18 07:35 Oxygen Flow Rate (L/min) 5 Oxygen Delivery Method Nasal Cannula Weight: 117 lb 11.629 oz Body Mass Index (BMI) 24.0 Intake and Output for Last 24 Hours 07/05/18 07/06/18 07/07/18 23:59 23:59 23:59 Intake Total 1169 / 1169 340 / 340 Output Total 1150 / 1150 1000 / 1000 Balance -660 / -660 General: Alert, Oriented x3, Cooperative, HEENT: Atraumatic, PERRLA, EOMI, Normocephalic Oral: Dry Mucosa Neck: Supple, No JVD Lungs: Clear to auscultation, Normal air movement, No rhonchi, No wheeze, No rales, Diminished at bases--BiPAP Cardiovascular: Regular rate, Regular Rhythm, Normal S1, Normal S2, No murmurs Abdomen: Soft, Non Tender, Non-Distended, No Hepato-splenomegaly Extremities: No edema, Capillary Refill Less than 3 Seconds Skin: No rashes, No breakdown Neurological: Neuro grossly intact, Sensory exam intact to light touch and pain Psych/Mental Status: Normal Affect, Appropriate Microbiology Past 72 Hours 07/05/18 14:40 Stool Stool Occult Blood ([facility]) - Final 07/04/18 10:20 Urine Catheter - [place] Urine Culture - Final Pseudomonas aeroginosa Laboratory Results 07/06/18 11:23: POC Glucose 257 H 07/06/18 16:36: POC Glucose 147 H 07/06/18 21:58: POC Glucose 188 H 07/07/18 05:30: WBC 8.9, RBC 3.32 L, Hgb 9.9 L, Hct 31.3 L, MCV 94.3, MCH 29.8, MCHC 31.6 L, RDW 17.5 H, RDW Differential 60.7 H, Plt Count 103 L, MPV 9.8, Immature Gran % (Auto) 0.200, Neut % (Auto) 85.8 H, Lymph % (Auto) 6.7 L, [place] % (Auto) 6.2, Eos % (Auto) 0.7, Baso % (Auto) 0.4, Absolute Neuts (auto) 7.6, Absolute Lymphs (auto) 0.60 L, Total Counted Not Reportable, Differential Comment SCANNED, Platelet Estimate MOD DEC, Poikilocytosis RARE, Anisocytosis 1+ 07/07/18 05:30: Sodium 142, Potassium 3.4 L, Chloride 103, Carbon Dioxide 29.0, Anion Gap 10, BUN 17, Creatinine 0.99, Estim Creat Clear Calc 35.81, Est GFR (MDRD) Af Amer 70, Est GFR (MDRD) Non-Af 58 L, BUN/Creatinine Ratio 17.2, Glucose 123 H, Calcium 7.8 L 07/07/18 06:51: POC Glucose 170 H Current Medications Acetaminophen (Tylenol) 650 mg PO Q4H PRN PRN PRN Reason: pain/fever Albuterol Sulfate (Ventolin Aerosols) 2.5 mg INHALATION Q2H PRN PRN PRN Reason: SHORTNESS OF BREATH Last Admin: 07/07/18 06:07 Dose: 2.5 mg Apixaban (Eliquis) 2.5 mg PO BID [facility] Last Admin: 07/06/18 21:59 Dose: 2.5 mg Atorvastatin Calcium (Lipitor) 40 mg PO QHS [facility] Last Admin: 07/06/18 22:00 Dose: 40 mg Ciprofloxacin HCl (Cipro) 500 mg PO BID [facility] Stop: 07/11/18 10:01 Last Admin: 07/06/18 21:59 Dose: 500 mg Dextrose (D50w Syringe) 0 gm IV X1 PRN; Protocol PRN Reason: Hypoglycemia Furosemide (Lasix) 40 mg IV BID [facility] Glucagon () 1 mg IM .X1 PRN PRN Reason: Hypoglycemia Sodium Chloride () 250 mls @ 15 mls/hr IV .[id number] PRN PRN Reason: SALINE FLUSH Last Admin: 07/05/18 15:30 Dose: 15 mls/hr Sodium Chloride () 250 mls @ 15 mls/hr IV .[id number] PRN PRN Reason: SALINE FLUSH Insulin Human Lispro (Humalog Kwikpen (Bkc)) 0 unit SQ ACHS [facility]; Protocol Last Admin: 07/06/18 21:59 Dose: 1 units Lisinopril (Zestril) 5 mg PO DAILY [facility] Last Admin: 07/06/18 10:17 Dose: 5 mg Magnesium Hydroxide (Milk Of Magnesia) 30 ml PO DAILY PRN PRN Reason: Constipation Metoprolol Tartrate (Lopressor (Beta Tiarra)) 100 mg PO BID [facility] Last Admin: 07/06/18 22:00 Dose: 100 mg Pantoprazole Sodium (Protonix) 20 mg PO DAILY [facility] Last Admin: 07/06/18 10:18 Dose: 20 mg Sodium Chloride () 5 - 15 ml IV UD PRN PRN Reason: SALINE FLUSH Last Admin: 07/07/18 06:21 Dose: 10 ml Medical Necessity - Tobacco Use Smoking Status: Former smoker Tobacco Use: Cigarettes Assessment/Plan All Active Problems UTI (urinary tract infection) (Acute) CHF (congestive heart failure) (Acute) 1. Diastolic CHF exacerbation/UTI/acute hypoxic respiratory failure/metabolic encephalopathy (resolved)/elevated troponin -Based on pleural effusions on the chest x-ray, as well as a BNP of 643 -Based on repeat x-ray, pleural effusions are about the same -Ordered thoracentesis yesterday however could not be done because she had read received a half dose of Eliquis the day prior and even though Eliquis has no activity after about 18-24hours based on radiology policy she could not have a thoracentesis for another 3 days and due to the holidays there would be no one here until Monday to be able to do it. -We will attempt to diurese more aggressively with IV Lasix 40 mg twice daily can also try little bit of albumin to draw fluid in the vasculature -Urine culture with Pseudomonas sensitive to Cipro, Cipro 500 mg p.o. twice daily -PT/OT -Elevated troponin could be due to worsening renal function, or exacerbation of CHF. Consult cardiology, appreciate recs -Echo EF of 65% which is similar to her previous echo earlier this month at [place], diastolic function could not be evaluated due to her A. fib 2. A. fib/CAD status post CABG/NATI (resolved)/status post pacemaker for sick sinus syndrome/acute anemia -Hemoccult is negative and her hemoglobin responded to 9.8, will resume Eliquis -She is not on any medications that would be typical for somebody in A. fib and who has coronary artery disease -Per the family they state that some of her medications were discontinued because of her kidney function, they are not sure as to which medications -She is a diabetic, and has CAD, started on an BAILEE inhibitor as well as Lipitor -We will need to monitor kidney function closely -Increase metoprolol to 100 mg twice daily. May need to add Cardizem if not optimally rate controlled 3. DM 2 -[facility] -Family is unsure of what she is on at home -We will order sliding scale and Accu-Cheks AC at bedtime 4. GERD -Stable -Continue with PPI Disposition: She is certified to go to TCU when ready, they are also able to transfer patient downstairs for thoracentesis if needed, therefore will continue with diuresis and if can remain stable on nasal cannula can transfer to TCU until she can have her thoracentesis next week. DVT: Eliquruben Code Visit Inpatient E&M: [id number] Subs Hosp L2
--- NOTE | 2018-07-07 08:24 | PN_ITS ---
Patient Problems: Active and Suspected Problems UTI (urinary tract infection) (Acute) CHF (congestive heart failure) (Acute) Subjective: Continues to be short of breath and required another dose of IV Lasix this morning as well as being put back on BiPAP. She denies any chest pain. Vitals/I&O's: Vital Signs Temp Pulse Resp BP Pulse Ox 97.6 F L 108 H 18 115/81 H 96 07/07/18 03:37 07/07/18 07:35 07/07/18 07:35 07/07/18 03:37 07/07/18 07:35 Oxygen Flow Rate (L/min) 5 Oxygen Delivery Method Nasal Cannula Weight: 117 lb 11.629 oz Body Mass Index (BMI) 24.0 Intake and Output for Last 24 Hours 07/05/18 07/06/18 07/07/18 23:59 23:59 23:59 Intake Total 1169 / 1169 340 / 340 Output Total 1150 / 1150 1000 / 1000 Balance -660 / -660 General: Alert, Oriented x3, Cooperative, HEENT: Atraumatic, PERRLA, EOMI, Normocephalic Oral: Dry Mucosa Neck: Supple, No JVD Lungs: Clear to auscultation, Normal air movement, No rhonchi, No wheeze, No rales, Diminished at bases--BiPAP Cardiovascular: Regular rate, Regular Rhythm, Normal S1, Normal S2, No murmurs Abdomen: Soft, Non Tender, Non-Distended, No Hepato-splenomegaly Extremities: No edema, Capillary Refill Less than 3 Seconds Skin: No rashes, No breakdown Neurological: Neuro grossly intact, Sensory exam intact to light touch and pain Psych/Mental Status: Normal Affect, Appropriate Microbiology Past 72 Hours 07/05/18 14:40 Stool Stool Occult Blood ([facility]) - Final 07/04/18 10:20 Urine Catheter - [place] Urine Culture - Final Pseudomonas aeroginosa Laboratory Results 07/06/18 11:23: POC Glucose 257 H 07/06/18 16:36: POC Glucose 147 H 07/06/18 21:58: POC Glucose 188 H 07/07/18 05:30: WBC 8.9, RBC 3.32 L, Hgb 9.9 L, Hct 31.3 L, MCV 94.3, MCH 29.8, MCHC 31.6 L, RDW 17.5 H, RDW Differential 60.7 H, Plt Count 103 L, MPV 9.8, Immature Gran % (Auto) 0.200, Neut % (Auto) 85.8 H, Lymph % (Auto) 6.7 L, [place] % (Auto) 6.2, Eos % (Auto) 0.7, Baso % (Auto) 0.4, Absolute Neuts (auto) 7.6, Absolute Lymphs (auto) 0.60 L, Total Counted Not Reportable, Differential Comm ent SCANNED, Platelet Estimate MOD DEC, Poikilocytosis RARE, Anisocytosis 1+ 07/07/18 05:30: Sodium 142, Potassium 3.4 L, Chloride 103, Carbon Dioxide 29.0, Anion Gap 10, BUN 17, Creatinine 0.99, Estim Creat Clear Calc 35.81, Est GFR (MDRD) Af Amer 70, Est GFR (MDRD) Non-Af 58 L, BUN/Creatinine Ratio 17.2, Gluc ose 123 H, Calcium 7.8 L 07/07/18 06:51: POC Glucose 170 H Current Medications Acetaminophen (Tylenol) 650 mg PO Q4H PRN PRN PRN Reason: pain/fever Albuterol Sulfate (Ventolin Aerosols) 2.5 mg INHALATION Q2H PRN PRN PRN Reason: SHORTNESS OF BREATH Last Admin: 07/07/18 06:07 Dose: 2.5 mg Apixaban (Eliquis) 2.5 mg PO BID [facility] Last Admin: 07/06/18 21:59 Dose: 2.5 mg Atorvastatin Calcium (Lipitor) 40 mg PO QHS [facility] Last Admin: 07/06/18 22:00 Dose: 40 mg Ciprofloxacin HCl (Cipro) 500 mg PO BID [facility] Stop: 07/11/18 10:01 Last Admin: 07/06/18 21:59 Dose: 500 mg Dextrose (D50w Syringe) 0 gm IV X1 PRN; Protocol PRN Reason: Hypoglycemia Furosemide (Lasix) 40 mg IV BID [facility] Glucagon () 1 mg IM .X1 PRN PRN Reason: Hypoglycemia Sodium Chloride () 250 mls @ 15 mls/hr IV .[id number] PRN PRN Reason: SALINE FLUSH Last Admin: 07/05/18 15:30 Dose: 15 mls/hr Sodium Chloride () 250 mls @ 15 mls/hr IV .[id number] PRN PRN Reason: SALINE FLUSH Insulin Human Lispro (Humalog Kwikpen (Bkc)) 0 unit SQ ACHS [facility]; Protocol Last Admin: 07/06/18 21:59 Dose: 1 units Lisinopril (Zestril) 5 mg PO DAILY [facility] Last Admin: 07/06/18 10:17 Dose: 5 mg Magnesium Hydroxide (Milk Of Magnesia) 30 ml PO DAILY PRN PRN Reason: Constipation Metoprolol Tartrate (Lopressor (Beta Tiarra)) 100 mg PO BID [facility] Last Admin: 07/06/18 22:00 Dose: 100 mg Pantoprazole Sodium (Protonix) 20 mg PO DAILY [facility] Last Admin: 07/06/18 10:18 Dose: 20 mg Sodium Chloride () 5 - 15 ml IV UD PRN PRN Reason: SALINE FLUSH Last Admin: 07/07/18 06:21 Dose: 10 ml Medical Necessity - Tobacco Use Smoking Status: Former smoker Tobacco Use: Cigarettes Assessment/Plan All Active Problems UTI (urinary tract infection) (Acute) CHF (congestive heart failure) (Acute) 1. Diastolic CHF exacerbation/UTI/acute hypoxic respiratory failure/metabolic encephalopathy (resolved)/elevated troponin -Based on pleural effusions on the chest x-ray, as well as a BNP of 643 -Based on repeat x-ray, pleural effusions are about the same -Ordered thoracentesis yesterday however could not be done because she had read received a half dose of Eliquis the day prior and even though Eliquis has no activity after about 18-24hours based on radiology policy she could not have a thoracentesis for another 3 days and due to the holidays there would be no one here until Monday to be able to do it. -We will attempt to diurese more aggressively with IV Lasix 40 mg twice daily can also try little bit of albumin to draw fluid in the vasculature -Urine culture with Pseudomonas sensitive to Cipro, Cipro 500 mg p.o. twice daily -PT/OT -Elevated troponin could be due to worsening renal function, or exacerbation of CHF. Consult cardiology, appreciate recs -Echo EF of 65% which is similar to her previous echo earlier this month at [place], diastolic function could not be evaluated due to her A. fib 2. A. fib/CAD status post CABG/NATI (resolved)/status post pacemaker for sick sinus syndrome/acute anemia -Hemoccult is negative and her hemoglobin responded to 9.8, will resume Eliquis -She is not on any medications that would be typical for somebody in A. fib and who has coronary artery disease -Per the family they state that some of her medications were discontinued because of her kidney function, they are not sure as to which medications -She is a diabetic, and has CAD, started on an BAILEE inhibitor as well as Lipitor -We will need to monitor kidney function closely -Increase metoprolol to 100 mg twice daily. May need to add Cardizem if not optimally rate controlled 3. DM 2 -[facility] with [facility] -Family is unsure of what she is on at home -We will order sliding scale and Accu-Cheks AC at bedtime 4. GERD -Stable -Continue with PPI Disposition: She is certified to go to TCU when ready, they are also able to transfer patient downstairs for thoracentesis if needed, therefore will continue with diuresis and if can remain stable on nasal cannula can transfer to TCU until she can have her thoracentesis next week. DVT: Jorge L Code Visit Inpatient E&M: [id number] Subs Hosp L2
[2018-07-07] MEDS: Insulin Lispro 100 UNIT/ML INSULN.PEN SQ ×2 (09:55→22:27)
[2018-07-07] MEDS: Lisinopril 5 MG Tablet PO (09:56)
[2018-07-07] MEDS: Ciprofloxacin 500 MG Tablet PO ×2 (09:56→22:31)
[2018-07-07] MEDS: Pantoprazole Sodium 20 MG Tablet PO (09:56)
[2018-07-07] MEDS: APIXABAN 2.5 MG TABLET PO ×2 (09:56→22:31)
[2018-07-07] MEDS: Metoprolol Tartrate 100 MG Tablet PO ×2 (09:56→22:32)
--- NOTE | 2018-07-07 11:31 | CPS ---
pt increased to 4 lpm....90-91% on 4. Nurse notified of change
[2018-07-07 11:46] LABS: Bedside Glucose 138 mg/dL (70-110)
--- NOTE | 2018-07-07 15:43 | CPS ---
1521...pt offered BIPAP for S.O.B. pt refused nurse in room and aware.
[2018-07-07 16:51] LABS: Bedside Glucose 142 mg/dL (70-110)
[2018-07-07] MEDS: Ipratropium/Albuterol Sulfate 3 ML AMPUL.NEB INHALATION (18:50)
--- NOTE | 2018-07-07 19:32 | NURSING ---
Reviewed and agreed on all charting with Kinjal Caraballo RN
[2018-07-07] MEDS: Atorvastatin Calcium 40 MG Tablet PO (22:31)
[2018-07-08] VITALS (20 sets, daily range): BP systolic 111–112; BP diastolic 66–81; PULSE 98–111; RESP 12–26; TEMP 36.5–37.1; O2SAT 90–98
[2018-07-08] MEDS: Ipratropium/Albuterol Sulfate 3 ML AMPUL.NEB INHALATION ×6 (00:15→22:20)
[2018-07-08 00:16] LABS: Bedside Glucose 189 mg/dL (70-110)
[2018-07-08 06:56] LABS: Bedside Glucose 144 mg/dL (70-110)
[2018-07-08 07:00] LABS: Anion Gap 11 (5-15); BUN 16 mg/dL (7-18); BUN/Creat Ratio 15.1 RATIO (10-20); Calcium,Total 7.9 mg/dL (8.5-10.1); Chloride 103 mmol/L (98-107); Creatinine, Serum 1.06 mg/dL (0.55-1.02); EST Glomerular Filtration Rate 54 mL/min (>60); Est Glom Filt Rate - Afr Amer 65 mL/min (>60); Estimated Creatinine Clearance 33.45 ml/min; Glucose 144 mg/dL (74-106); Potassium 3.7 mmol/L (3.5-5.1); Sodium Level 142 mmol/L (136-145)
--- NOTE | 2018-07-08 07:37 | PCM.PN.HOSP ---
Patient Problems: Active and Suspected Problems UTI (urinary tract infection) (Acute) CHF (congestive heart failure) (Acute) Subjective: Seems to be about the same, no events overnight currently receiving a breathing treatment. Still very weak and takes 2 people to get her up to the chair. Denies any chest pain. Vitals/I&O's: Vital Signs Temp Pulse Resp BP Pulse Ox 97.8 F 107 H 16 112/74 95 07/08/18 03:00 07/08/18 06:57 07/08/18 03:00 07/08/18 03:00 07/08/18 03:00 Oxygen Flow Rate (L/min) 12 Oxygen Delivery Method Venturi Mask Weight: 117 lb 8.102 oz Body Mass Index (BMI) 24.0 Intake and Output for Last 24 Hours 07/06/18 07/07/18 07/08/18 23:59 23:59 23:59 Intake Total 340 / 340 740 / 740 120 / 120 Output Total 1000 / 1000 Balance -660 / -660 740 / 740 120 / 120 General: Alert, Oriented x3, Cooperative, HEENT: Atraumatic, PERRLA, EOMI, Normocephalic Oral: Dry Mucosa Neck: Supple, No JVD Lungs: Clear to auscultation, Normal air movement, No rhonchi, No wheeze, No rales, Diminished at bases Cardiovascular: Regular rate, Regular Rhythm, Normal S1, Normal S2, No murmurs Abdomen: Soft, Non Tender, Non-Distended, No Hepato-splenomegaly Extremities: No edema, Capillary Refill Less than 3 Seconds Skin: No rashes, No breakdown Neurological: Neuro grossly intact, Sensory exam intact to light touch and pain Psych/Mental Status: Normal Affect, Appropriate Microbiology Past 72 Hours 07/05/18 14:40 Stool Stool Occult Blood ([place]OURDES) - Final 07/04/18 10:20 Urine Catheter - [place] Urine Culture - Final Pseudomonas aeroginosa Laboratory Results 07/07/18 11:39: POC Glucose 138 H 07/07/18 16:37: POC Glucose 142 H 07/07/18 22:26: POC Glucose 189 H 07/08/18 05:25: Sodium 142, Potassium 3.7, Chloride 103, Carbon Dioxide 28.0, Anion Gap 11, BUN 16, Creatinine 1.06 H, Estim Creat Clear Calc 33.45, Est GFR (MDRD) Af Amer 65, Est GFR (MDRD) Non-Af 54 L, BUN/Creatinine Ratio 15.1, Glucose 144 H, Calcium 7.9 L 07/08/18 06:48: POC Glucose 144 H Current Medications Acetaminophen (Tylenol) 650 mg PO Q4H PRN PRN PRN Reason: pain/fever Albuterol/Ipratropium (Duoneb) 3 ml INHALATION Q4HWA.RT [facility] Last Admin: 07/08/18 07:23 Dose: 3 ml Atorvastatin Calcium (Lipitor) 40 mg PO QHS [facility] Last Admin: 07/07/18 22:31 Dose: 40 mg Ciprofloxacin HCl (Cipro) 500 mg PO BID [facility] Stop: 07/11/18 10:01 Last Admin: 07/07/18 22:31 Dose: 500 mg Dextrose (D50w Syringe) 0 gm IV X1 PRN; Protocol PRN Reason: Hypoglycemia Furosemide (Lasix) 40 mg IV BID [facility] Last Admin: 07/07/18 22:27 Dose: 40 mg Glucagon () 1 mg IM .X1 PRN PRN Reason: Hypoglycemia Sodium Chloride () 250 mls @ 15 mls/hr IV .[id number] PRN PRN Reason: SALINE FLUSH Last Admin: 07/05/18 15:30 Dose: 15 mls/hr Sodium Chloride () 250 mls @ 15 mls/hr IV .[id number] PRN PRN Reason: SALINE FLUSH Insulin Human Lispro (Humalog Kwikpen (Bkc)) 0 unit SQ ACHS [facility]; Protocol Last Admin: 07/07/18 22:27 Dose: 1 units Lisinopril (Zestril) 5 mg PO DAILY [facility] Last Admin: 07/07/18 09:56 Dose: 5 mg Magnesium Hydroxide (Milk Of Magnesia) 30 ml PO DAILY PRN PRN Reason: Constipation Metoprolol Tartrate (Lopressor (Beta Tiarra)) 100 mg PO BID [facility] Last Admin: 07/07/18 22:32 Dose: 100 mg Pantoprazole Sodium (Protonix) 20 mg PO DAILY [facility] Last Admin: 07/07/18 09:56 Dose: 20 mg Sodium Chloride () 5 - 15 ml IV UD PRN PRN Reason: SALINE FLUSH Last Admin: 07/07/18 06:21 Dose: 10 ml Medical Necessity - Tobacco Use Smoking Status: Former smoker Tobacco Use: Cigarettes Assessment/Plan All Active Problems UTI (urinary tract infection) (Acute) CHF (congestive heart failure) (Acute) 1. Diastolic CHF exacerbation/UTI/acute hypoxic respiratory failure/metabolic encephalopathy (resolved)/elevated troponin -Based on pleural effusions on the chest x-ray, as well as a BNP of 643 -Based on repeat x-ray, pleural effusions are about the same -Ordered thoracentesis, however could not be done because she had read received a half dose of Eliquis the day prior and even though Eliquis has no activity after about 18-24hours, based on radiology policy she could not have a thoracentesis for another 3 days and due to the holidays there would be no one here until Monday to be able to do it, she would like for her care to continue here. -We will attempt to diurese more aggressively with IV Lasix 40 mg twice daily can also try little bit of albumin to draw fluid in the vasculature -Urine culture with Pseudomonas sensitive to Cipro, Cipro 500 mg p.o. twice daily -PT/OT -Elevated troponin could be due to worsening renal function, or exacerbation of CHF. Consult cardiology, appreciate recs -Echo EF of 65% which is similar to her previous echo earlier this month at [place], diastolic function could not be evaluated due to her A. fib 2. A. fib/CAD status post CABG/NATI (resolved)/status post pacemaker for sick sinus syndrome/acute anemia -Hemoccult is negative and her hemoglobin responded to 9.8, will resume Eliquis -She is not on any medications that would be typical for somebody in A. fib and who has coronary artery disease -Per the family they state that some of her medications were discontinued because of her kidney function, they are not sure as to which medications -She is a diabetic, and has CAD, started on an BAILEE inhibitor as well as Lipitor -We will need to monitor kidney function closely -Increased metoprolol to 100 mg twice daily. May need to add Cardizem if not optimally rate controlled 3. DM 2 -Came from the group home with a sliding scale insulin -Family is unsure of what she is on at home -We will order sliding scale and Accu-Cheks AC at bedtime 4. GERD -Stable -Continue with PPI Disposition: She is certified to go to TCU when ready, they are also able to transfer patient downstairs for thoracentesis if needed, therefore will continue with diuresis and if can remain stable on nasal cannula can transfer to TCU until she can have her thoracentesis next week. DVT: Eliquis Code Visit Inpatient E&M: 43110 Subs Hosp L2
--- NOTE | 2018-07-08 07:41 | PN_ITS ---
Patient Problems: Active and Suspected Problems UTI (urinary tract infection) (Acute) CHF (congestive heart failure) (Acute) Subjective: Seems to be about the same, no events overnight currently receiving a breathing treatment. Still very weak and takes 2 people to get her up to the chair. Denies any chest pain. Vitals/I&O's: Vital Signs Temp Pulse Resp BP Pulse Ox 97.8 F 107 H 16 112/74 95 07/08/18 03:00 07/08/18 06:57 07/08/18 03:00 07/08/18 03:00 07/08/18 03:00 Oxygen Flow Rate (L/min) 12 Oxygen Delivery Method Venturi Mask Weight: 117 lb 8.102 oz Body Mass Index (BMI) 24.0 Intake and Output for Last 24 Hours 07/06/18 07/07/18 07/08/18 23:59 23:59 23:59 Intake Total 340 / 340 740 / 740 120 / 120 Output Total 1000 / 1000 Balance -660 / -660 740 / 740 120 / 120 General: Alert, Oriented x3, Cooperative, HEENT: Atraumatic, PERRLA, EOMI, Normocephalic Oral: Dry Mucosa Neck: Supple, No JVD Lungs: Clear to auscultation, Normal air movement, No rhonchi, No wheeze, No rales, Diminished at bases Cardiovascular: Regular rate, Regular Rhythm, Normal S1, Normal S2, No murmurs Abdomen: Soft, Non Tender, Non-Distended, No Hepato-splenomegaly Extremities: No edema, Capillary Refill Less than 3 Seconds Skin: No rashes, No breakdown Neurological: Neuro grossly intact, Sensory exam intact to light touch and pain Psych/Mental Status: Normal Affect, Appropriate Microbiology Past 72 Hours 07/05/18 14:40 Stool Stool Occult Blood ([place]) - Final 07/04/18 10:20 Urine Catheter - [place] Urine Culture - Final Pseudomonas aeroginosa Laboratory Results 07/07/18 11:39: POC Glucose 138 H 07/07/18 16:37: POC Glucose 142 H 07/07/18 22:26: POC Glucose 189 H 07/08/18 05:25: Sodium 142, Potassium 3.7, Chloride 103, Carbon Dioxide 28.0, Anion Gap 11, BUN 16, Creatinine 1.06 H, Estim Creat Clear Calc 33.45, Est GFR (MDRD) Af Amer 65, Est GFR (MDRD) Non-Af 54 L, BUN/Creatinine Ratio 15.1, Glucose 144 H, Calcium 7.9 L 07/08/18 06:48: POC Glucose 144 H Current Medications Acetaminophen (Tylenol) 650 mg PO Q4H PRN PRN PRN Reason: pain/fever Albuterol/Ipratropium (Duoneb) 3 ml INHALATION Q4HWA.RT [facility] Last Admin: 07/08/18 07:23 Dose: 3 ml Atorvastatin Calcium (Lipitor) 40 mg PO QHS [facility] Last Admin: 07/07/18 22:31 Dose: 40 mg Ciprofloxacin HCl (Cipro) 500 mg PO BID [facility] Stop: 07/11/18 10:01 Last Admin: 07/07/18 22:31 Dose: 500 mg Dextrose (D50w Syringe) 0 gm IV X1 PRN; Protocol PRN Reason: Hypoglycemia Furosemide (Lasix) 40 mg IV BID [facility] Last Admin: 07/07/18 22:27 Dose: 40 mg Glucagon () 1 mg IM .X1 PRN PRN Reason: Hypoglycemia Sodium Chloride () 250 mls @ 15 mls/hr IV .[id number] PRN PRN Reason: SALINE FLUSH Last Admin: 07/05/18 15:30 Dose: 15 mls/hr Sodium Chloride () 250 mls @ 15 mls/hr IV .[id number] PRN PRN Reason: SALINE FLUSH Insulin Human Lispro (Humalog Kwikpen (Bkc)) 0 unit SQ ACHS [facility]; Protocol Last Admin: 07/07/18 22:27 Dose: 1 units Lisinopril (Zestril) 5 mg PO DAILY [facility] Last Admin: 07/07/18 09:56 Dose: 5 mg Magnesium Hydroxide (Milk Of Magnesia) 30 ml PO DAILY PRN PRN Reason: Constipation Metoprolol Tartrate (Lopressor (Beta Tiarra)) 100 mg PO BID [facility] Last Admin: 07/07/18 22:32 Dose: 100 mg Pantoprazole Sodium (Protonix) 20 mg PO DAILY [facility] Last Admin: 07/07/18 09:56 Dose: 20 mg Sodium Chloride () 5 - 15 ml IV UD PRN PRN Reason: SALINE FLUSH Last Admin: 07/07/18 06:21 Dose: 10 ml Medical Necessity - Tobacco Use Smoking Status: Former smoker Tobacco Use: Cigarettes Assessment/Plan All Active Problems UTI (urinary tract infection) (Acute) CHF (congestive heart failure) (Acute) 1. Diastolic CHF exacerbation/UTI/acute hypoxic respiratory failure/metabolic encephalopathy (resolved)/elevated troponin -Based on pleural effusions on the chest x-ray, as well as a BNP of 643 -Based on repeat x-ray, pleural effusions are about the same -Ordered thoracentesis, however could not be done because she had read received a half dose of Eliquis the day prior and even though Eliquis has no activity after about 18-24hours, based on radiology policy she could not have a thoracentesis for another 3 days and due to the holidays there would be no one here until Monday to be able to do it, she would like for her care to continue here. -We will attempt to diurese more aggressively with IV Lasix 40 mg twice daily can also try little bit of albumin to draw fluid in the vasculature -Urine culture with Pseudomonas sensitive to Cipro, Cipro 500 mg p.o. twice daily -PT/OT -Elevated troponin could be due to worsening renal function, or exacerbation of CHF. Consult cardiology, appreciate recs -Echo EF of 65% which is similar to her previous echo earlier this month at [place], diastolic function could not be evaluated due to her A. fib 2. A. fib/CAD status post CABG/NATI (resolved)/status post pacemaker for sick sinus syndrome/acute anemia -Hemoccult is negative and her hemoglobin responded to 9.8, will resume Eliquis -She is not on any medications that would be typical for somebody in A. fib and who has coronary artery disease -Per the family they state that some of her medications were discontinued because of her kidney function, they are not sure as to which medications -She is a diabetic, and has CAD, started on an BAILEE inhibitor as well as Lipitor -We will need to monitor kidney function closely -Increased metoprolol to 100 mg twice daily. May need to add Cardizem if not optimally rate controlled 3. DM 2 -Came from the group home with a sliding scale insulin -Family is unsure of what she is on at home -We will order sliding scale and Accu-Cheks AC at bedtime 4. GERD -Stable -Continue with PPI Disposition: She is certified to go to TCU when ready, they are also able to transfer patient downstairs for thoracentesis if needed, therefore will continue with diuresis and if can remain stable on nasal cannula can transfer to TCU until she can have her thoracentesis next week. DVT: Eliquis Code Visit Inpatient E&M: 28802 Subs Hosp L2
[2018-07-08] MEDS: Ciprofloxacin 500 MG Tablet PO ×2 (09:07→21:33)
[2018-07-08] MEDS: Furosemide 40 MG/4 ML Vial IV ×2 (09:07→21:33)
[2018-07-08] MEDS: Metoprolol Tartrate 100 MG Tablet PO ×2 (09:07→21:33)
[2018-07-08] MEDS: Lisinopril 5 MG Tablet PO (09:07)
[2018-07-08] MEDS: 0.9% NaCl Peripheral Flush Adult/Peds IV (09:07)
[2018-07-08] MEDS: Pantoprazole Sodium 20 MG Tablet PO (09:07)
[2018-07-08] MEDS: Insulin Lispro 100 UNIT/ML INSULN.PEN SQ ×2 (11:11→21:34)
[2018-07-08 11:20] LABS: Bedside Glucose 158 mg/dL (70-110)
[2018-07-08 16:55] LABS: Bedside Glucose 145 mg/dL (70-110)
[2018-07-08] MEDS: Atorvastatin Calcium 40 MG Tablet PO (21:34)
[2018-07-09] VITALS (19 sets, daily range): BP systolic 90–126; BP diastolic 53–80; PULSE 88–108; RESP 12–20; TEMP 36.2–36.6; O2SAT 93–100
[2018-07-09 00:31] LABS: Bedside Glucose 307 mg/dL (70-110)
[2018-07-09 06:07] LABS: Absolute Neutrophil Count 6.3 X10^3/uL (2.0-7.7); Basophil# 0.09 X10^3/uL; Basophil% 1.2 % (0-1); Eosinophil# 0.04 X10^3/uL; Eosinophils% 0.5 % (0-5); Hematocrit 36.6 % (37-47); Hemoglobin 11.4 g/dl (12.0-15.0); Lymphocyte % 7.7 % (19-41); Mean Corp Hgb Conc 31.1 g/gl (32-36); Mean Corpuscular Hgb 30.6 pg (27.0-32.0); Mean Corpuscular Volume 98.4 fL (81-99); Mean Platelet Vol. 10.4 fl (6.2-12.0); Monocyte# 0.66 X10^3/uL; Monocyte% 8.5 % (0-10); Neutrophil # 6.31 X10^3/uL (2.7-7.7); Neutrophil % 81.3 % (47-70); Platelet Count 114 K/mm3 (150-450); RBC Distribution Width CV 17.6 % (11.6-14.6); Red Blood Count 3.72 M/mm3 (4.2-5.4); White Blood Count 7.8 K/mm3 (4.4-11.0)
[2018-07-09 06:08] LABS: Differential Indicated SCAN CRITERIA MET; POSITIVE COUNT NO; POSITIVE DIFFERENTIAL YES; POSITIVE MORPHOLOGY NO
[2018-07-09 06:25] LABS: Anion Gap 10 (5-15); BUN 16 mg/dL (7-18); BUN/Creat Ratio 12.4 RATIO (10-20); Calcium,Total 7.8 mg/dL (8.5-10.1); Chloride 101 mmol/L (98-107); Creatinine, Serum 1.29 mg/dL (0.55-1.02); EST Glomerular Filtration Rate 43 mL/min (>60); Est Glom Filt Rate - Afr Amer 52 mL/min (>60); Estimated Creatinine Clearance 27.48 ml/min; Glucose 247 mg/dL (74-106); Potassium 3.7 mmol/L (3.5-5.1); Sodium Level 139 mmol/L (136-145)
[2018-07-09 06:57] LABS: Bedside Glucose 244 mg/dL (70-110)
[2018-07-09 07:01] LABS: Differential Comment SCANNED
[2018-07-09] MEDS: Ipratropium/Albuterol Sulfate 3 ML AMPUL.NEB INHALATION ×5 (07:14→23:24)
[2018-07-09] MEDS: Insulin Lispro 100 UNIT/ML INSULN.PEN SQ ×2 (08:58→12:49)
[2018-07-09] MEDS: Furosemide 40 MG/4 ML Vial IV (08:59)
[2018-07-09] MEDS: Metoprolol Tartrate 100 MG Tablet PO (08:59)
[2018-07-09] MEDS: Pantoprazole Sodium 20 MG Tablet PO (08:59)
[2018-07-09] MEDS: Ciprofloxacin 500 MG Tablet PO ×2 (08:59→21:17)
[2018-07-09] MEDS: 0.9% NaCl Peripheral Flush Adult/Peds IV (09:00)
[2018-07-09] MEDS: Lisinopril 5 MG Tablet PO (09:00)
--- NOTE | 2018-07-09 10:04 | PCM.PN.HOSP ---
Patient Problems: Active and Suspected Problems UTI (urinary tract infection) (Acute) CHF (congestive heart failure) (Acute) Subjective: [facility] a [facility] 1 day shortness of breath was found to be hypoxic in the emergency room requiring BiPAP. Chest x-ray does show pleural effusions. She was started on IV Lasix and admitted and is being managed for acute hypoxic respiratory failure due to CHF exacerbation and pleural effusion. Patient seen and examined. She had no complaints. She was short of breath was on 13 L of oxygen by facemask. She denied any cough or chest pain, any abdominal pain, any diarrhea vomiting. Review of systems otherwise negative. Labs and vitals reviewed. She was unable to have thoracentesis because she was on Eliquis and so this is currently on hold. Radiology will be available Monday to do thoracentesis. Her oxygen requirement has increased significantly as was previously just on 2 L but required up to 10 and 12 L over the last couple of days. Review of systems otherwise negative. Vitals/I&O's: Vital Signs Temp Pulse Resp BP Pulse Ox 97.7 F L 105 H 18 121/75 H 95 07/09/18 09:00 07/09/18 09:00 07/09/18 09:00 07/09/18 09:00 07/09/18 09:00 Oxygen Flow Rate (L/min) 10 Oxygen Delivery Method Venturi Mask Weight: 116 lb 6.465 oz Body Mass Index (BMI) 24.0 Intake and Output for Last 24 Hours 07/07/18 07/08/18 07/09/18 23:59 23:59 23:59 Intake Total 740 / 740 480 / 480 240 / 240 Balance 740 / 740 480 / 480 240 / 240 General: Alert, Oriented x3, Cooperative, No apparent distress HEENT: Atraumatic, PERRLA, EOMI, Normocephalic Oral: Dry Mucosa Neck: Supple, No JVD, Negative Carotid Bruits Lungs: - - Decreased breath sounds bibasilarly Cardiovascular: Regular rate, Regular Rhythm, Normal S1, Normal S2, No murmurs Abdomen: Bowel Sounds Present, Soft, Non Tender, Non-Distended, No Hepato-splenomegaly Extremities: No clubbing, No cyanosis, No edema, Capillary Refill Less than 3 Seconds Skin: No rashes, No breakdown Musculoskeletal: No Tenderness to Palpation of Joints or Extremities Lymphatic: No Cervical, Supraclavicular, or Inguinal Adenopathy Neurological: Cranial nerves II-XII grossly intact, Neuro grossly intact, Motor Exam 5/5 strength throughout Psych/Mental Status: Normal Affect, Appropriate, Alert and oriented to time, place, person, mood and affect Microbiology Past 72 Hours 07/05/18 14:40 Stool Stool Occult Blood ([place]) - Final 07/04/18 10:20 Urine Catheter - [place] Urine Culture - Final Pseudomonas aeroginosa Laboratory Results 07/08/18 11:09: POC Glucose 158 H 07/08/18 16:18: POC Glucose 145 H 07/08/18 21:32: POC Glucose 307 H 07/09/18 05:45: WBC 7.8, RBC 3.72 L, Hgb 11.4 L, Hct 36.6 L, MCV 98.4, MCH 30.6, MCHC 31.1 L, RDW 17.6 H, RDW Differential 59.0 H, Plt Count 114 L, MPV 10.4, Immature Gran % (Auto) 0.800, Neut % (Auto) 81.3 H, Lymph % (Auto) 7.7 L, [place] % (Auto) 8.5, Eos % (Auto) 0.5, Baso % (Auto) 1.2 H, Absolute Neuts (auto) 6.3, Absolute Lymphs (auto) 0.60 L, Total Counted Not Reportable, Differential Comment SCANNED 07/09/18 05:45: Sodium 139, Potassium 3.7, Chloride 101, Carbon Dioxide 28.0, Anion Gap 10, BUN 16, Creatinine 1.29 H, Estim Creat Clear Calc 27.48, Est GFR (MDRD) Af Amer 52 L, Est GFR (MDRD) Non-Af 43 L, BUN/Creatinine Ratio 12.4, Glucose 247 H, Calcium 7.8 L 07/09/18 06:53: POC Glucose 244 H Diagnostic Data Chest X-Ray 07/06/18 13:15 IMPRESSION: Large bilateral effusions atelectasis persistent since prior study pacemaker status post sternotomy. Electronically Signed: Susan Murphy MD at 18:16 EST Tel , Service support , Current Medications Acetaminophen (Tylenol) 650 mg PO Q4H PRN PRN PRN Reason: pain/fever Albuterol/Ipratropium (Duoneb) 3 ml INHALATION Q4HWA.RT [facility] Last Admin: 07/09/18 07:14 Dose: 3 ml Atorvastatin Calcium (Lipitor) 40 mg PO QHS [facility] Last Admin: 07/08/18 21:34 Dose: 40 mg Ciprofloxacin HCl (Cipro) 500 mg PO BID [facility] Stop: 07/11/18 10:01 Last Admin: 07/09/18 08:59 Dose: 500 mg Dextrose (D50w Syringe) 0 gm IV X1 PRN; Protocol PRN Reason: Hypoglycemia Furosemide (Lasix) 40 mg IV BID [facility] Last Admin: 07/09/18 08:59 Dose: 40 mg Glucagon () 1 mg IM .X1 PRN PRN Reason: Hypoglycemia Sodium Chloride () 250 mls @ 15 mls/hr IV .[id number] PRN PRN Reason: SALINE FLUSH Last Admin: 07/05/18 15:30 Dose: 15 mls/hr Sodium Chloride () 250 mls @ 15 mls/hr IV .[id number] PRN PRN Reason: SALINE FLUSH Insulin Human Lispro (Humalog Kwikpen (Bkc)) 0 unit SQ ACHS [facility]; Protocol Last Admin: 07/09/18 08:58 Dose: 3 units Lisinopril (Zestril) 5 mg PO DAILY [facility] Last Admin: 07/09/18 09:00 Dose: 5 mg Magnesium Hydroxide (Milk Of Magnesia) 30 ml PO DAILY PRN PRN Reason: Constipation Metoprolol Tartrate (Lopressor (Beta Tiarra)) 100 mg PO BID [facility] Last Admin: 07/09/18 08:59 Dose: 100 mg Pantoprazole Sodium (Protonix) 20 mg PO DAILY [facility] Last Admin: 07/09/18 08:59 Dose: 20 mg Sodium Chloride () 5 - 15 ml IV UD PRN PRN Reason: SALINE FLUSH Last Admin: 07/09/18 09:00 Dose: 10 ml Medical Necessity - Tobacco Use Smoking Status: Former smoker Tobacco Use: Cigarettes Assessment/Plan All Active Problems UTI (urinary tract infection) (Acute) CHF (congestive heart failure) (Acute) 1. Acute hypoxic respiratory failure due to diastolic CHF exacerbation and bilateral pleural effusion Oxygen needs of fluctuating she was on BiPAP all night on account of shortness of breath. At time of review this morning she was on [address] Ventimask vitals titrated down to 4 L by nasal cannula later this morning. Chest x-ray showed bilateral pleural effusions. She was unable to have thoracentesis on Monday on account of her being on Eliquis. Eliquis is currently on hold. Cumulative input output shows more positive balance by 189 mils since admission. On IV Lasix 40 mg twice daily. Creatinine has trended up slightly to 1.29 Neurology on board. Echo showed EF of 65%. Will consult pulmonology for possible thoracentesis as a radiologist is not available till Monday to do thoracentesis and patient's shortness of breath keeps fluctuating. 2. Afib: Heart rate has remained around 105. Eliquis currently on hold on account of thoracentesis which is pending Metoprolol increased to 100 mg twice daily to better control heart rate. Will monitor. Rate been in the 100 may also be due to shortness of breath from pleural effusion. 3. Diabetes mellitus: on ISS. Accuchecks ACHS 4. GERD; on PPI 5. UTI: on PO ciprofloxacin 6. NATI: Cr trended up to 1.29. lasix may also be contributing. Will monitor and cut back on diuresis to 40mg daily. 7. CAD s/p CABG: on statin and metoprolol Disposition: for DC To TCU when ready. in light of her fluctuating oxygen needs, will hold off on TCU discharge until after she gets thoracentesis Code Visit Inpatient E&M: [id number] [facility] L3
--- NOTE | 2018-07-09 10:09 | PN_ITS ---
Patient Problems: Active and Suspected Problems UTI (urinary tract infection) (Acute) CHF (congestive heart failure) (Acute) Subjective: Patient was admitted from her custodial with a complaint of 1 day shortness of breath was found to be hypoxic in the emergency room requiring BiPAP. Chest x-ray does show pleural effusions. She was started on IV Lasix and admitted and is being managed for acute hypoxic respiratory failure due to CHF exacerbation and pleural effusion. Patient seen and examined. She had no complaints. She was short of breath was on 13 L of oxygen by facemask. She denied any cough or chest pain, any abdominal pain, any diarrhea vomiting. Review of systems otherwise negative. Labs and vitals reviewed. She was unable to have thoracentesis because she was on Eliquis and so this is currently on hold. Radiology will be available Monday to do thoracentesis. Her oxygen requirement has increased significantly as was previously just on 2 L but required up to 10 and 12 L over the last couple of days. Review of systems otherwise negative. Vitals/I&O's: Vital Signs Temp Pulse Resp BP Pulse Ox 97.7 F L 105 H 18 121/75 H 95 07/09/18 09:00 07/09/18 09:00 07/09/18 09:00 07/09/18 09:00 07/09/18 09:00 Oxygen Flow Rate (L/min) 10 Oxygen Delivery Method Venturi Mask Weight: 116 lb 6.465 oz Body Mass Index (BMI) 24.0 Intake and Output for Last 24 Hours 07/07/18 07/08/18 07/09/18 23:59 23:59 23:59 Intake Total 740 / 740 480 / 480 240 / 240 Balance 740 / 740 480 / 480 240 / 240 General: Alert, Oriented x3, Cooperative, No apparent distress HEENT: Atraumatic, PERRLA, EOMI, Normocephalic Oral: Dry Mucosa Neck: Supple, No JVD, Negative Carotid Bruits Lungs: - - Decreased breath sounds bibasilarly Cardiovascular: Regular rate, Regular Rhythm, Normal S1, Normal S2, No murmurs Abdomen: Bowel Sounds Present, Soft, Non Tender, Non-Distended, No Hepato- splenomegaly Extremities: No clubbing, No cyanosis, No edema, Capillary Refill Less than 3 Seconds Skin: No rashes, No breakdown Musculoskeletal: No Tenderness to Palpation of Joints or Extremities Lymphatic: No Cervical, Supraclavicular, or Inguinal Adenopathy Neurological: Cranial nerves II-XII grossly intact, Neuro grossly intact, Motor Exam 5/5 strength throughout Psych/Mental Status: Normal Affect, Appropriate, Alert and oriented to time, place, person, mood and affect Microbiology Past 72 Hours 07/05/18 14:40 Stool Stool Occult Blood (LOURDES) - Final 07/04/18 10:20 Urine Catheter - Barajas Urine Culture - Final Pseudomonas aeroginosa Laboratory Results 07/08/18 11:09: POC Glucose 158 H 07/08/18 16:18: POC Glucose 145 H 07/08/18 21:32: POC Glucose 307 H 07/09/18 05:45: WBC 7.8, RBC 3.72 L, Hgb 11.4 L, Hct 36.6 L, MCV 98.4, MCH 30.6, MCHC 31.1 L, RDW 17.6 H, RDW Differential 59.0 H, Plt Count 114 L, MPV 10.4, Immature Gran % (Auto) 0.800, Neut % (Auto) 81.3 H, Lymph % (Auto) 7.7 L, [place] % (Auto) 8.5, Eos % (Auto) 0.5, Baso % (Auto) 1.2 H, Absolute Neuts (auto) 6.3, Absolute Lymphs (auto) 0.60 L, Total Counted Not Reportable, Differential Comment SCANNED 07/09/18 05:45: Sodium 139, Potassium 3.7, Chloride 101, Carbon Dioxide 28.0, A nion Gap 10, BUN 16, Creatinine 1.29 H, Estim Creat Clear Calc 27.48, Est GFR (MDRD) Af Amer 52 L, Est GFR (MDRD) Non-Af 43 L, BUN/Creatinine Ratio 12.4, Glucose 247 H, Calcium 7.8 L 07/09/18 06:53: POC Glucose 244 H Diagnostic Data Chest X-Ray 07/06/18 13:15 IMPRESSION: Large bilateral effusions atelectasis persistent since prior study pacemaker status post sternotomy. Electronically Signed: Susan Murphy MD at 18:16 EST Tel , Service support , Current Medications Acetaminophen (Tylenol) 650 mg PO Q4H PRN PRN PRN Reason: pain/fever Albuterol/Ipratropium (Duoneb) 3 ml INHALATION Q4HWA.RT [facility] Last Admin: 07/09/18 07:14 Dose: 3 ml Atorvastatin Calcium (Lipitor) 40 mg PO QHS [facility] Last Admin: 07/08/18 21:34 Dose: 40 mg Ciprofloxacin HCl (Cipro) 500 mg PO BID [facility] Stop: 07/11/18 10:01 Last Admin: 07/09/18 08:59 Dose: 500 mg Dextrose (D50w Syringe) 0 gm IV X1 PRN; Protocol PRN Reason: Hypoglycemia Furosemide (Lasix) 40 mg IV BID [facility] Last Admin: 07/09/18 08:59 Dose: 40 mg Glucagon () 1 mg IM .X1 PRN PRN Reason: Hypoglycemia Sodium Chloride () 250 mls @ 15 mls/hr IV .[id number] PRN PRN Reason: SALINE FLUSH Last Admin: 07/05/18 15:30 Dose: 15 mls/hr Sodium Chloride () 250 mls @ 15 mls/hr IV .[id number] PRN PRN Reason: SALINE FLUSH Insulin Human Lispro (Humalog Kwikpen (Bkc)) 0 unit SQ ACHS [facility]; Protocol Last Admin: 07/09/18 08:58 Dose: 3 units Lisinopril (Zestril) 5 mg PO DAILY [facility] Last Admin: 07/09/18 09:00 Dose: 5 mg Magnesium Hydroxide (Milk Of Magnesia) 30 ml PO DAILY PRN PRN Reason: Constipation Metoprolol Tartrate (Lopressor (Beta Tiarra)) 100 mg PO BID [facility] Last Admin: 07/09/18 08:59 Dose: 100 mg Pantoprazole Sodium (Protonix) 20 mg PO DAILY [facility] Last Admin: 07/09/18 08:59 Dose: 20 mg Sodium Chloride () 5 - 15 ml IV UD PRN PRN Reason: SALINE FLUSH Last Admin: 07/09/18 09:00 Dose: 10 ml Medical Necessity - Tobacco Use Smoking Status: Former smoker Tobacco Use: Cigarettes Assessment/Plan All Active Problems UTI (urinary tract infection) (Acute) CHF (congestive heart failure) (Acute) 1. Acute hypoxic respiratory failure due to diastolic CHF exacerbation and bilateral pleural effusion * Oxygen needs of fluctuating she was on BiPAP all night on account of shortness of breath. At time of review this morning she was on 30 L [address] Ventimask vitals titrated down to 4 L by nasal cannula later this morning. * Chest x-ray showed bilateral pleural effusions. She was unable to have thoracentesis on Monday on account of her being on Eliquis. Eliquis is currently on hold. * Cumulative input output shows more positive balance by 189 mils since adm ission. * On IV Lasix 40 mg twice daily. Creatinine has trended up slightly to 1.29 * Neurology on board. Echo showed EF of 65%. * Will consult pulmonology for possible thoracentesis as a radiologist is not available till Monday to do thoracentesis and patient's shortness of breath keeps fluctuating. * 2. Afib: * Heart rate has remained around 105. * Eliquis currently on hold on account of thoracentesis which is pending * Metoprolol increased to 100 mg twice daily to better control heart rate. * Will monitor. * Rate been in the 100 may also be due to shortness of breath from pleural effusion. 3. Diabetes mellitus: on ISS. Accuchecks ACHS 4. GERD; on PPI 5. UTI: on PO ciprofloxacin 6. NATI: Cr trended up to 1.29. lasix may also be contributing. Will monitor and cut back on diuresis to 40mg daily. 7. CAD s/p CABG: on statin and metoprolol Disposition: for DC To TCU when ready. in light of her fluctuating oxygen needs, will hold off on TCU discharge until after she gets thoracentesis Code Visit Inpatient E&M: [id number] [facility] [[email or web address]] Hosp L3
--- NOTE | 2018-07-09 10:58 | PCM.CONS.GEN ---
Reason for Consult Date of Consultation: 07/09/18 Reason for Consultation: Respiratory failure, pleural effusion History of Present Illness: The patient is a 72-year-old female, with a history as outlined below, who initially presented to the emergency department on July 04 with complaints of shortness of breath. The patient does have a history of heart failure with preserved ejection fraction and recently underwent mitral valve replacement, pacemaker placement and did reportedly undergo a CABG in November. The patient was evaluated by cardiology and has been treated medically for acute decompensated heart failure throughout her hospitalization. She also did have a mild troponin elevation. Unfortunately, the patient never had a Barajas catheter placed. Therefore her I's and O's were inaccurate. She has been diuresed with little overall change in her respiratory status. Her chest imaging studies do reveal bilateral pleural effusions. She has been afebrile throughout her hospitalization and does not have any evidence of a leukocytosis. The patient did grow Pseudomonas from a urine culture. However, it was only 50-80,000 colony-forming units. Her plain film chest x-ray does appear somewhat worse today and her BNP remains elevated at 900. The patient did present to the hospital on and that medication has been on hold since July 07. There were tentative plans to obtain an ultrasound-guided thoracentesis on Monday. Per nursing report, the patient's respiratory status waxes and wanes. She was previously on BiPAP and a Ventimask, but as of my interaction with her this afternoon, she is maintaining appropriate oxygen saturations on 4 L/min. The patient denies the presence of a cough, fevers or chills. Past Medical History Past Medical History (Chronic Problems): Chronic Problems CAD (coronary artery disease) (Chronic) Allergies simvastatin [From Zocor] Allergy (Verified 07/04/18 09:48) Unknown Home Medications: Ambulatory Orders Medication Instructions Recorded Acetaminophen 650 mg PO Q4H PRN PRN 07/04/18 Apixaban [Eliquis] 2.5 mg PO BID 07/04/18 Bisacodyl 10 mg RC DAILY PRN PRN 07/04/18 Calcium Carbonate 500 mg PO TID 07/04/18 Glucagon 1 mg IM X1 PRN 07/04/18 Insulin Lispro [Humalog] 0 unit SQ 4X/DAY 07/04/18 Ipratropium/Albuterol Sulfate 3 ml INHALATION Q2H PRN PRN 07/04/18 [Duoneb] Magnesium Hydroxide [Milk Of 30 ml PO DAILY PRN PRN 07/04/18 Magnesia] Melatonin/Pyridoxine HCl (B6) 1 each PO QHS PRN PRN 07/04/18 [Melatonin 3 mg Tablet] Miconazole Nitrate 1 gm MC TID 07/04/18 Na Phos,M-B/Na Phos,Di-Ba [Fleet 133 ml RC DAILY PRN PRN 07/04/18 Enema] Omeprazole 20 mg PO DAILY 07/04/18 Sennosides [Senna] 8.6 mg PO DAILY PRN PRN 07/04/18 Surgical History: cholecystectomy, coronary bypass surgery, - - Mitral valve replacement, and permanent pacemaker. Smoking Status: Former smoker Tobacco Use: Cigarettes Alcohol: None Drugs: None - *Family History Maternal History Items: Diabetes, Heart Disease, Hypertension Paternal History Items: Cancer, Diabetes, Heart Disease, Hypertension, Stroke Review of Systems Constitutional: Denies: Chills, Fever Eyes: Denies: Blurred vision, Double vision HEENT: Denies: Head Aches, Sinus Congestion, Sinus Drainage Cardiovascular: Denies: Chest Pain, Palpitations Respiratory: Reports: Shortness of Breath. Denies: Cough, Sputum production Gastrointestinal: Denies: Abdominal Pain, Nausea, Vomiting Genitourinary: Reports: Frequency Musculoskeletal: Denies: Joint Pain, Joint Tenderness Skin: Denies: Rash, Wounds Neurological: Denies: Numbness, Tingling, Focal weakness Psychiatric: Denies: Anxiety, Depression, Homicidal Ideations, Suicidal Ideations Hematologic/ Lymphatic: Denies: Easy Bruising, Easy Bleeding Patient Problems: Active and Suspected Problems UTI (urinary tract infection) (Acute) CHF (congestive heart failure) (Acute) Objective: The patient's most recent lab work, culture data and imaging studies have all been personally reviewed. Surface echocardiogram dated July 06 revealed normal LV size and function with an ejection fraction of 65%. Right ventricular systolic pressure was estimated to be 47 mmHg. - Physical Exam General: Alert, Cooperative, No apparent distress, - - Sitting in bedside recliner. HEENT: Atraumatic, PERRLA, Normocephalic Oral: No Gingival or Mucosal Lesions/ Ulcerations Neck: Supple, No Nodes, Trachea Midline Lungs: - - Diminished air movement bilaterally. Poor, patient dependent, inspiratory effort. Cardiovascular: Regular rate, Regular Rhythm, Normal S1, Normal S2, No murmurs Abdomen: Bowel Sounds Present, Soft, Non Tender Extremities: No clubbing, No cyanosis, No edema Skin: No breakdown Musculoskeletal: No Tenderness to Palpation of Joints or Extremities Lymphatic: No Cervical, Supraclavicular, or Inguinal Adenopathy Neurological: Cranial nerves II-XII grossly intact, Neuro grossly intact Psych/Mental Status: Normal Affect, Appropriate Vital Signs Temp Pulse Resp BP Pulse Ox 36.5 C L 105 H 18 121/75 H 96 07/09/18 09:00 07/09/18 09:00 07/09/18 09:00 07/09/18 09:00 07/09/18 10:04 Oxygen Flow Rate (L/min) 4 Oxygen Delivery Method Nasal Cannula Weight: 116 lb 6.465 oz Body Mass Index (BMI) 24.0 Intake and Output for Last 24 Hours 07/07/18 07/08/18 07/09/18 23:59 23:59 23:59 Intake Total 740 / 740 480 / 480 240 / 240 Balance 740 / 740 480 / 480 240 / 240 Microbiology Past 72 Hours 07/05/18 14:40 Stool Occult Blood ([facility]OURDES) - Final Stool 07/04/18 10:20 Urine Culture - Final Urine Catheter - Barajas Pseudomonas aeroginosa Laboratory Tests Past 24 Hrs 07/09/18 07/09/18 05:45 05:45 WBC 7.8 RBC 3.72 L Hgb 11.4 L Hct 36.6 L MCV 98.4 MCH 30.6 MCHC 31.1 L RDW 17.6 H RDW Differential 59.0 H Plt Count 114 L MPV 10.4 Immature Gran % (Auto) 0.800 Neut % (Auto) 81.3 H Lymph % (Auto) 7.7 L [place] % (Auto) 8.5 Eos % (Auto) 0.5 Baso % (Auto) 1.2 H Absolute Neuts (auto) 6.3 Absolute Lymphs (auto) 0.60 L Total Counted Not Reportable Differential Comment SCANNED Sodium 139 Potassium 3.7 Chloride 101 Carbon Dioxide 28.0 Anion Gap 10 BUN 16 Creatinine 1.29 H Estim Creat Clear Calc 27.48 Est GFR (MDRD) Af Amer 52 L Est GFR (MDRD) Non-Af 43 L BUN/Creatinine Ratio 12.4 Glucose 247 H Calcium 7.8 L POC Glucose 07/09/18 07/08/18 07/08/18 06:53 21:32 16:18 POC Glucose 244 H 307 H 145 H 07/08/18 11:09 POC Glucose 158 H Clinical Impression(s) from Imaging Studies Chest X-Ray 07/04/18 09:37 IMPRESSION: Bilateral pleural effusion more on the right side underlying infiltrate cannot be excluded Electronically Signed: Guerrero Ochoa, at 10:44 EST Tel , Service support , Chest X-Ray 07/06/18 13:15 IMPRESSION: Large bilateral effusions atelectasis persistent since prior study pacemaker status post sternotomy. Electronically Signed: Susan Murphy MD at 18:16 EST Tel , Service support , Assessment/Plan All Active Problems UTI (urinary tract infection) (Acute) CHF (congestive heart failure) (Acute) RECOMMENDATIONS: 1. Obtain repeat plain film chest x-ray and BNP. 2. Ask cardiology to follow-up with the patient. 3. Continue diuresis. Will add metolazone to patient's regimen. 4. Place Barajas catheter to ensure accurate I's and O's. Continue fluid restriction as ordered. 5. Obtain daily weights. 6. Given that the patient is maintaining saturations on 4 L/min, there is no emergent indication for thoracentesis. IMPRESSIONS: 1. Acute hypoxic respiratory failure secondary to decompensated heart failure/bilateral pleural effusions Recommend continued attempts at volume optimization with diuretic therapy. Metolazone can be added to the patient's current loop diuretic therapy. Recommend reevaluation by cardiology. There is no emergent indication for thoracentesis at this time. I would also strongly recommend the placement of a Barajas catheter to document strict I's and O's. Continue fluid restriction and obtain daily weights. 2. Atrial fibrillation/coronary artery disease status post CABG/valvular heart disease Continue current medical management per cardiology recommendations. 3. Advanced age and deconditioning/diabetes/GERD Complicates care, management, recovery and prognosis. Okay to continue home medications from my perspective. This note was generated with [employer] dictation software. It may contain incorrect words, spelling, and punctuation that were not noted in checking the note before signing. Code Visit Inpatient E&M: 81719 Init Hosp L3
--- NOTE | 2018-07-09 11:04 | CASEMGMT ---
GAUTAM spoke w/physician, pt is not ready for discharge yet. As per physician, pt may be ready tomorrow. GAUTAM let Abigail in TCU know pt is not ready today, may be ready tomorrow. Green sheet is on the chart. MAHNAZ Laughlin, CHEMISTRY LECTURER
--- NOTE | 2018-07-09 11:20 | RAD_ITS ---
STUDY: X-RAY CHEST REASON FOR EXAM: Female, 72 years old. Pleural effusion. TECHNIQUE: Single AP portable view of the chest. COMPARISON: Comparison is made with prior study dated July 06, 2018. FINDINGS: EKG electrodes are seen. Stable bilateral pleural effusions with underlying bibasilar atelectasis and/or infiltration. This is superimposed on CHF. There is mild cardiac enlargement. Left-sided dual-chamber pacemaker is seen. The patient is status post mitral valve replacement. A clip is seen in the region of the left atrial appendage. Normal mediastinum and billy. Normal visualized pulmonary arteries. There is atherosclerotic calcification of the aortic arch with tortuosity. Spinal fusion in the lower thoracic spine. There is degenerative osteoarthritis of the bilateral shoulders. There is no demonstrated abnormality of the visualized soft tissue structures of the upper abdomen. RAD/Chest 1 View (Portable) IMPRESSION: Stable bilateral pleural effusions with bibasilar atelectasis and/or infiltrate and CHF. Electronically Signed: David Santamaria MD at 13:04 EST Tel [phone], Service support ,
[2018-07-09 11:30] LABS: Bedside Glucose 193 mg/dL (70-110)
[2018-07-09 11:31] LABS: BNP,B-Type NATRIURETIC PEPTIDE 901.1 pg/mL (0-100)
[2018-07-09] MEDS: metOLazone 5 MG Tablet PO (12:49)
--- NOTE | 2018-07-09 15:46 | PN.CARD_ITS ---
Subjectve: Interval events, notes, and results were reviewed. Pt was interviewed/examined. Stable CV status. CHF, DD, classification difficult. Normally functioning DDD. Pleural effusion, awaiting thoracentesis. I agree with the current treatment plan. Optimization of ACEI, BB, Diuresis as tolerated. Will FU as needed. Please call with any questions. Thanks Objective: Vital Signs Temp Pulse Resp BP Pulse Ox 97.8 F 100 16 108/80 94 07/09/18 15:00 07/09/18 15:10 07/09/18 15:10 07/09/18 15:00 07/09/18 15:00 Oxygen Flow Rate (L/min) 4 Oxygen Delivery Method Nasal Cannula Weight: 52.8 kg Body Mass Index (BMI) 24.0 Intake and Output for Last 24 Hours 07/07/18 07/08/18 07/09/18 23:59 23:59 23:59 Intake Total 740 / 740 480 / 480 720 / 720 Balance 740 / 740 480 / 480 720 / 720 07/09/18 05:45: WBC 7.8, RBC 3.72 L, Hgb 11.4 L, Hct 36.6 L, MCV 98.4, MCH 30.6, MCHC 31.1 L, RDW 17.6 H, RDW Differential 59.0 H, Plt Count 114 L, MPV 10.4, Immature Gran % (Auto) 0.800, Neut % (Auto) 81.3 H, Lymph % (Auto) 7.7 L, [place] % (Auto) 8.5, Eos % (Auto) 0.5, Baso % (Auto) 1.2 H, Absolute Neuts (auto) 6.3, Total Counted Not Reportable 07/09/18 05:45: Sodium 139, Potassium 3.7, Chloride 101, Carbon Dioxide 28.0, Anion Gap 10, BUN 16, Creatinine 1.29 H, Est GFR (MDRD) Af Amer 52 L, Est GFR (MDRD) Non-Af 43 L, BUN/Creatinine Ratio 12.4, Glucose 247 H, Calcium 7.8 L 07/09/18 05:45: B-Natriuretic Peptide 901.1 H Rhythm: EKG: ECHO: Stress Test: Cardiac Cath: PCI: CT Surgery: Holter monitor: EPS: PPM: CXR: Chest CT Scan: Medical Necessity - Tobacco Use Smoking Status: Former smoker Tobacco Use: Cigarettes
[2018-07-09 17:00] LABS: Bedside Glucose 95 mg/dL (70-110)
[2018-07-09] MEDS: Atorvastatin Calcium 40 MG Tablet PO (21:17)
[2018-07-09 23:26] LABS: Bedside Glucose 149 mg/dL (70-110)
[2018-07-10] VITALS (20 sets, daily range): BP systolic 99–106; BP diastolic 55–68; PULSE 86–109; RESP 12–22; TEMP 36.1–37; O2SAT 93–99
[2018-07-10] MEDS: Ipratropium/Albuterol Sulfate 3 ML AMPUL.NEB INHALATION ×4 (06:50→19:21)
[2018-07-10 06:52] LABS: Anion Gap 11 (5-15); BUN 15 mg/dL (7-18); BUN/Creat Ratio 12.2 RATIO (10-20); Calcium,Total 7.7 mg/dL (8.5-10.1); Chloride 103 mmol/L (98-107); Creatinine, Serum 1.23 mg/dL (0.55-1.02); EST Glomerular Filtration Rate 45 mL/min (>60); Est Glom Filt Rate - Afr Amer 55 mL/min (>60); Estimated Creatinine Clearance 28.82 ml/min; Glucose 180 mg/dL (74-106); Potassium 3.5 mmol/L (3.5-5.1); Sodium Level 140 mmol/L (136-145)
--- NOTE | 2018-07-10 06:59 | PCM.PROGNOTE ---
Patient Problems: Active and Suspected Problems UTI (urinary tract infection) (Acute) CHF (congestive heart failure) (Acute) Subjective: The patient was seen and examined at the bedside this morning. Events from the last 24 hours have been reviewed. The patient is currently afebrile, hemodynamically stable and maintaining appropriate oxygen saturations on BiPAP currently. The patient remains on scheduled Lasix 40 mg twice daily, along with metolazone. Despite this, there has been little overall change in the patient's I's and O's. Objective: The patient's most recent lab work, culture data and imaging studies have all been personally reviewed. Surface echocardiogram dated July 06 revealed normal LV size and function with an ejection fraction of 65%. Right ventricular systolic pressure was estimated to be 47 mmHg. - Physical Exam General: Alert, Cooperative, No apparent distress HEENT: Atraumatic, PERRLA, Normocephalic Oral: No Gingival or Mucosal Lesions/ Ulcerations Neck: Supple, No Nodes, Trachea Midline Lungs: No rhonchi, No wheeze, No rales, Diminished Cardiovascular: Regular rate, Regular Rhythm, Normal S1, Normal S2, No murmurs Abdomen: Bowel Sounds Present, Soft, Non Tender Extremities: No clubbing, No cyanosis, No edema Skin: No breakdown Musculoskeletal: No Tenderness to Palpation of Joints or Extremities Lymphatic: No Cervical, Supraclavicular, or Inguinal Adenopathy Neurological: Neuro grossly intact Psych/Mental Status: Normal Affect, Appropriate Vital Signs Temp Pulse Resp BP Pulse Ox 37.0 C 105 H 20 H 106/68 99 07/10/18 05:00 07/10/18 05:00 07/10/18 05:00 07/10/18 05:00 07/10/18 05:00 Oxygen Flow Rate (L/min) 4 Oxygen Delivery Method Bi-pap Weight: 115 lb 11.883 oz Body Mass Index (BMI) 24.0 Intake and Output for Last 24 Hours 07/08/18 07/09/18 07/10/18 23:59 23:59 23:59 Intake Total 480 / 480 970 / 970 100 / 100 Output Total 700 / 700 190 / 190 Balance 480 / 480 270 / 270 -90 / -90 Laboratory Tests Past 24 Hrs 07/09/18 07/09/18 07/10/18 05:45 05:45 06:04 WBC Cancelled Corrected WBC Cancelled RBC Cancelled Hgb Cancelled Hct Cancelled MCV Cancelled MCH Cancelled MCHC Cancelled RDW Cancelled RDW Differential Cancelled Plt Count Cancelled MPV Cancelled Immature Gran % (Auto) Cancelled Neut % (Auto) Cancelled Lymph % (Auto) Cancelled [place] % (Auto) Cancelled Eos % (Auto) Cancelled Baso % (Auto) Cancelled Absolute Neuts (auto) Cancelled Absolute Lymphs (auto) Cancelled Total Counted Not Reportable Cancelled Neutrophils % (Manual) Cancelled Band Neutrophils % Cancelled Lymphocytes % (Manual) Cancelled Monocytes % (Manual) Cancelled Eosinophils % (Manual) Cancelled Basophils % (Manual) Cancelled Metamyelocytes % Cancelled Myelocytes % Cancelled Promyelocytes % Cancelled Blast Cells % Cancelled Plasma Cell % (Manual) Cancelled Other Cells % Cancelled Nucleated RBCs/100 WBC Cancelled Differential Comment SCANNED Cancelled Diff Path Review Cancelled Hypersegmented Neuts Cancelled Atypical Lymphocytes Cancelled Reactive Lymphocytes Cancelled Smudge Cells Cancelled Toxic Granulation Cancelled Dohle Bodies Cancelled Shekhar Rods Cancelled Platelet Estimate Cancelled Plt Morphology Comment Cancelled RBC Morphology Cancelled Polychromasia Cancelled Hypochromasia Cancelled Poikilocytosis Cancelled Basophilic Stippling Cancelled Anisocytosis Cancelled Microcytosis Cancelled Macrocytosis Cancelled Spherocytes Cancelled Sickle Cells Cancelled Target Cells Cancelled Tear Drop Cells Cancelled Ovalocytes Cancelled Stomatocytes Cancelled [place] Bodies Cancelled [place] Cells Cancelled Bite Cells Cancelled Acanthocytes (Spur) Cancelled Rouleaux Cancelled Schistocytes Cancelled Sodium Potassium Chloride Carbon Dioxide Anion Gap BUN Creatinine Estim Creat Clear Calc Est GFR (MDRD) Af Amer Est GFR (MDRD) Non-Af BUN/Creatinine Ratio Glucose Calcium B-Natriuretic Peptide 901.1 H 07/10/18 06:04 WBC Corrected WBC RBC Hgb Hct MCV MCH MCHC RDW RDW Differential Plt Count MPV Immature Gran % (Auto) Neut % (Auto) Lymph % (Auto) [place] % (Auto) Eos % (Auto) Baso % (Auto) Absolute Neuts (auto) Absolute Lymphs (auto) Total Counted Neutrophils % (Manual) Band Neutrophils % Lymphocytes % (Manual) Monocytes % (Manual) Eosinophils % (Manual) Basophils % (Manual) Metamyelocytes % Myelocytes % Promyelocytes % Blast Cells % Plasma Cell % (Manual) Other Cells % Nucleated RBCs/100 WBC Differential Comment Diff Path Review Hypersegmented Neuts Atypical Lymphocytes Reactive Lymphocytes Smudge Cells Toxic Granulation Dohle Bodies Shekhar Rods Platelet Estimate Plt Morphology Comment RBC Morphology Polychromasia Hypochromasia Poikilocytosis Basophilic Stippling Anisocytosis Microcytosis Macrocytosis Spherocytes Sickle Cells Target Cells Tear Drop Cells Ovalocytes Stomatocytes [place] Bodies [place] Cells Bite Cells Acanthocytes (Spur) Rouleaux Schistocytes Sodium 140 Potassium 3.5 Chloride 103 Carbon Dioxide 26.0 Anion Gap 11 BUN 15 Creatinine 1.23 H Estim Creat Clear Calc 28.82 Est GFR (MDRD) Af Amer 55 L Est GFR (MDRD) Non-Af 45 L BUN/Creatinine Ratio 12.2 Glucose 180 H Calcium 7.7 L B-Natriuretic Peptide POC Glucose 07/09/18 07/09/18 07/09/18 21:14 16:42 11:19 POC Glucose 149 H 95 193 H Clinical Impression(s) from Imaging Studies Chest X-Ray 07/04/18 09:37 IMPRESSION: Bilateral pleural effusion more on the right side underlying infiltrate cannot be excluded Electronically Signed: Guerrero Ochoa at 10:44 EST Tel , Service support , Chest X-Ray 07/06/18 13:15 IMPRESSION: Large bilateral effusions atelectasis persistent since prior study pacemaker status post sternotomy. Electronically Signed: Susan Murphy MD at 18:16 EST Tel , Service support , Chest X-Ray 07/09/18 11:20 IMPRESSION: Stable bilateral pleural effusions with bibasilar atelectasis and/or infiltrate and CHF. Electronically Signed: David Santamaria MD at 13:04 EST Tel [phone], Service support , Medical Necessity - Tobacco Use Smoking Status: Former smoker Tobacco Use: Cigarettes Assessment/Plan All Active Problems UTI (urinary tract infection) (Acute) CHF (congestive heart failure) (Acute) RECOMMENDATIONS: 1. Continue attempts at volume optimization with diuretics as tolerated. 2. Plans for diagnostic/therapeutic thoracentesis tomorrow. Obtain coags in the morning. 3. Obtain daily weights. IMPRESSIONS: 1. Acute hypoxic respiratory failure secondary to decompensated heart failure/bilateral pleural effusions Recommend continued attempts at volume optimization with diuretic therapy. Continue fluid restriction and obtain daily weights. Wean supplemental oxygen as tolerated and coverage aggressive incentive spirometer use. Tentative plans for diagnostic/therapeutic thoracentesis tomorrow. Obtain coags in the morning. 2. Atrial fibrillation/coronary artery disease status post CABG/valvular heart disease Continue current medical management per cardiology recommendations. 3. Advanced age and deconditioning/diabetes/GERD Complicates care, management, recovery and prognosis. Okay to continue home medications from my perspective. This note was generated with [employer] dictation software. It may contain incorrect words, spelling, and punctuation that were not noted in checking the note before signing. Code Visit Inpatient E&M: 72244 Subs Hosp L2
--- NOTE | 2018-07-10 07:02 | PN_ITS ---
Patient Problems: Active and Suspected Problems UTI (urinary tract infection) (Acute) CHF (congestive heart failure) (Acute) Subjective: The patient was seen and examined at the bedside this morning. Events from the last 24 hours have been reviewed. The patient is currently afebrile, hemodynamically stable and maintaining appropriate oxygen saturations on BiPAP currently. The patient remains on scheduled Lasix 40 mg twice daily, along with metolazone. Despite this, there has been little overall change in the patient's I's and O's. Objective: The patient's most recent lab work, culture data and imaging studies have all been personally reviewed. Surface echocardiogram dated July 06 revealed normal LV size and function with an ejection fraction of 65%. Right ventricular systolic pressure was estimated to be 47 mmHg. - Physical Exam General: Alert, Cooperative, No apparent distress HEENT: Atraumatic, PERRLA, Normocephalic Oral: No Gingival or Mucosal Lesions/ Ulcerations Neck: Supple, No Nodes, Trachea Midline Lungs: No rhonchi, No wheeze, No rales, Diminished Cardiovascular: Regular rate, Regular Rhythm, Normal S1, Normal S2, No murmurs Abdomen: Bowel Sounds Present, Soft, Non Tender Extremities: No clubbing, No cyanosis, No edema Skin: No breakdown Musculoskeletal: No Tenderness to Palpation of Joints or Extremities Lymphatic: No Cervical, Supraclavicular, or Inguinal Adenopathy Neurological: Neuro grossly intact Psych/Mental Status: Normal Affect, Appropriate Vital Signs Temp Pulse Resp BP Pulse Ox 37.0 C 105 H 20 H 106/68 99 07/10/18 05:00 07/10/18 05:00 07/10/18 05:00 07/10/18 05:00 07/10/18 05:00 Oxygen Flow Rate (L/min) 4 Oxygen Delivery Method Bi-pap Weight: 115 lb 11.883 oz Body Mass Index (BMI) 24.0 Intake and Output for Last 24 Hours 07/08/18 07/09/18 07/10/18 23:59 23:59 23:59 Intake Total 480 / 480 970 / 970 100 / 100 Output Total 700 / 700 190 / 190 Balance 480 / 480 270 / 270 -90 / -90 Laboratory Tests Past 24 Hrs 07/09/18 07/09/18 07/10/18 05:45 05:45 06:04 WBC Cancelled Corrected WBC Cancelled RBC Cancelled Hgb Cancelled Hct Cancelled MCV Cancelled MCH Cancelled MCHC Cancelled RDW Cancelled RDW Differential Cancelled Plt Count Cancelled MPV Cancelled Immature Gran % (Auto) Cancelled Neut % (Auto) Cancelled Lymph % (Auto) Cancelled [place] % (Auto) Cancelled Eos % (Auto) Cancelled Baso % (Auto) Cancelled Absolute Neuts (auto) Cancelled Absolute Lymphs (auto) Cancelled Total Counted Not Reportable Cancelled Neutrophils % (Manual) Cancelled Band Neutrophils % Cancelled Lymphocytes % (Manual) Cancelled Monocytes % (Manual) Cancelled Eosinophils % (Manual) Cancelled Basophils % (Manual) Cancelled Metamyelocytes % Cancelled Myelocytes % Cancelled Promyelocytes % Cancelled Blast Cells % Cancelled Plasma Cell % (Manual) Cancelled Other Cells % Cancelled Nucleated RBCs/100 WBC Cancelled Differential Comment SCANNED Cancelled Diff Path Review Cancelled Hypersegmented Neuts Cancelled Atypical Lymphocytes Cancelled Reactive Lymphocytes Cancelled Smudge Cells Cancelled Toxic Granulation Cancelled Dohle Bodies Cancelled [place] Rods Cancelled Platelet Estimate Cancelled Plt Morphology Comment Cancelled RBC Morphology Cancelled Polychromasia Cancelled Hypochromasia Cancelled Poikilocytosis Cancelled Basophilic Stippling Cancelled Anisocytosis Cancelled Microcytosis Cancelled Macrocytosis Cancelled Spherocytes Cancelled Sickle Cells Cancelled Target Cells Cancelled Tear Drop Cells Cancelled Ovalocytes Cancelled Stomatocytes Cancelled [place] Bodies Cancelled [place] Cells Cancelled Bite Cells Cancelled Acanthocytes (Spur) Cancelled Rouleaux Cancelled Schistocytes Cancelled Sodium Potassium Chloride Carbon Dioxide Anion Gap BUN Creatinine Estim Creat Clear Calc Est GFR (MDRD) Af Amer Est GFR (MDRD) Non-Af BUN/Creatinine Ratio Glucose Calcium B-Natriuretic Peptide 901.1 H 07/10/18 06:04 WBC Corrected WBC RBC Hgb Hct MCV MCH MCHC RDW RDW Differential Plt Count MPV Immature Gran % (Auto) Neut % (Auto) Lymph % (Auto) [place] % (Auto) Eos % (Auto) Baso % (Auto) Absolute Neuts (auto) Absolute Lymphs (auto) Total Counted Neutrophils % (Manual) Band Neutrophils % Lymphocytes % (Manual) Monocytes % (Manual) Eosinophils % (Manual) Basophils % (Manual) Metamyelocytes % Myelocytes % Promyelocytes % Blast Cells % Plasma Cell % (Manual) Other Cells % Nucleated RBCs/100 WBC Differential Comment Diff Path Review Hypersegmented Neuts Atypical Lymphocytes Reactive Lymphocytes Smudge Cells Toxic Granulation Dohle Bodies Shekhar Rods Platelet Estimate Plt Morphology Comment RBC Morphology Polychromasia Hypochromasia Poikilocytosis Basophilic Stippling Anisocytosis Microcytosis Macrocytosis Spherocytes Sickle Cells Target Cells Tear Drop Cells Ovalocytes Stomatocytes [place] Bodies [place] Cells Bite Cells Acanthocytes (Spur) Rouleaux Schistocytes Sodium 140 Potassium 3.5 Chloride 103 Carbon Dioxide 26.0 Anion Gap 11 BUN 15 Creatinine 1.23 H Estim Creat Clear Calc 28.82 Est GFR (MDRD) Af Amer 55 L Est GFR (MDRD) Non-Af 45 L BUN/Creatinine Ratio 12.2 Glucose 180 H Calcium 7.7 L B-Natriuretic Peptide POC Glucose 07/09/18 07/09/18 07/09/18 21:14 16:42 11:19 POC Glucose 149 H 95 193 H Clinical Impression(s) from Imaging Studies Chest X-Ray 07/04/18 09:37 IMPRESSION: Bilateral pleural effusion more on the right side underlying infiltrate cannot be excluded Electronically Signed: Guerrero Ochoa at 10:44 EST Tel , Service support , Chest X-Ray 07/06/18 13:15 IMPRESSION: Large bilateral effusions atelectasis persistent since prior study pacemaker status post sternotomy. Electronically Signed: Susan Murphy MD at 18:16 EST Tel , Service support , Chest X-Ray 07/09/18 11:20 IMPRESSION: Stable bilateral pleural effusions with bibasilar atelectasis and/or infiltrate and CHF. Electronically Signed: David Santamaria MD at 13:04 EST Tel [phone], Service support , Medical Necessity - Tobacco Use Smoking Status: Former smoker Tobacco Use: Cigarettes Assessment/Plan All Active Problems UTI (urinary tract infection) (Acute) CHF (congestive heart failure) (Acute) RECOMMENDATIONS: 1. Continue attempts at volume optimization with diuretics as tolerated. 2. Plans for diagnostic/therapeutic thoracentesis tomorrow. Obtain coags in the morning. 3. Obtain daily weights. IMPRESSIONS: 1. Acute hypoxic respiratory failure secondary to decompensated heart failure/bilateral pleural effusions Recommend continued attempts at volume optimization with diuretic therapy. Continue fluid restriction and obtain daily weights. Wean supplemental oxygen as tolerated and coverage aggressive incentive spirometer use. Tentative plans for diagnostic/therapeutic thoracentesis tomorrow. Obtain coags in the morning. 2. Atrial fibrillation/coronary artery disease status post CABG/valvular heart disease Continue current medical management per cardiology recommendations. 3. Advanced age and deconditioning/diabetes/GERD Complicates care, management, recovery and prognosis. Okay to continue home medications from my perspective. This note was generated with [employer] dictation software. It may contain incorrect words, spelling, and punctuation that were not noted in checking the note before signing. Code Visit Inpatient E&M: 75154 Subs Hosp L2
[2018-07-10 07:11] LABS: Bedside Glucose 187 mg/dL (70-110)
[2018-07-10] MEDS: Insulin Lispro 100 UNIT/ML INSULN.PEN SQ ×4 (08:05→23:13)
[2018-07-10 08:22] LABS: Absolute Lymphocyte Count 0.65 X10^3/ul (0.83-4.51); Absolute Neutrophil Count 6.1 X10^3/uL (2.0-7.7); Basophil# 0.03 X10^3/uL; Basophil% 0.4 % (0-1); Eosinophil# 0.03 X10^3/uL; Eosinophils% 0.4 % (0-5); Hematocrit 37.9 % (37-47); Hemoglobin 11.6 g/dl (12.0-15.0); Lymphocyte # 0.65 X10^3/ul (4.0); Lymphocyte % 8.9 % (19-41); Mean Corp Hgb Conc 30.6 g/gl (32-36); Mean Corpuscular Hgb 29.6 pg (27.0-32.0); Mean Corpuscular Volume 96.7 fL (81-99); Monocyte% 6.8 % (0-10); Neutrophil # 6.07 X10^3/uL (2.7-7.7); Platelet Count 115 K/mm3 (150-450); RBC Distribution Width CV 17.8 % (11.6-14.6); Red Blood Count 3.92 M/mm3 (4.2-5.4); White Blood Count 7.3 K/mm3 (4.4-11.0)
[2018-07-10 08:23] LABS: POSITIVE COUNT NO; POSITIVE DIFFERENTIAL NO; POSITIVE MORPHOLOGY NO
[2018-07-10] MEDS: Furosemide 40 MG/4 ML Vial IV ×2 (10:05→23:10)
[2018-07-10] MEDS: Lisinopril 5 MG Tablet PO (10:08)
[2018-07-10] MEDS: metOLazone 5 MG Tablet PO (10:08)
[2018-07-10] MEDS: Pantoprazole Sodium 20 MG Tablet PO (10:08)
[2018-07-10] MEDS: Ciprofloxacin 500 MG Tablet PO ×2 (10:08→23:10)
[2018-07-10] MEDS: 0.9% NaCl Peripheral Flush Adult/Peds IV ×2 (10:09→23:26)
--- NOTE | 2018-07-10 11:30 | PCM.PN.HOSP ---
Patient Problems: Active and Suspected Problems UTI (urinary tract infection) (Acute) CHF (congestive heart failure) (Acute) Subjective: Patient seen and examined. She is more alert today. She denies any fever, chills, cough, chest pain, abdominal pain, diarrhea or vomiting. She says shortness of breath is better, though she is still on 4l of oxygen. Review of systems is otherwise negative. She had a catheter inserted yesterday and urine output for the past 24 hours was 2700 mils. Vitals/I&O's: Vital Signs Temp Pulse Resp BP Pulse Ox 97.0 F L 108 H 20 H 99/55 L 97 07/10/18 10:10 07/10/18 10:58 07/10/18 10:33 07/10/18 10:10 07/10/18 10:10 Oxygen Flow Rate (L/min) 4 Oxygen Delivery Method Nasal Cannula Weight: 115 lb 11.883 oz Body Mass Index (BMI) 24.0 Intake and Output for Last 24 Hours 07/08/18 07/09/18 07/10/18 23:59 23:59 23:59 Intake Total 480 / 480 970 / 970 100 / 100 Output Total 700 / 700 190 / 190 Balance 480 / 480 270 / 270 -90 / -90 General: Alert, Oriented x3, Cooperative, No apparent distress HEENT: Atraumatic, PERRLA, EOMI, Normocephalic Oral: Moist Mucosa Neck: Supple, No JVD, Negative Carotid Bruits Lungs: - - Decreased breath sounds bibasilarly. Poor inspiratory effort. Cardiovascular: Regular rate, Regular Rhythm, Normal S1, Normal S2, No murmurs Abdomen: Bowel Sounds Present, Soft, Non Tender, Non-Distended, No Hepato-splenomegaly Extremities: No clubbing, No cyanosis, No edema, Capillary Refill Less than 3 Seconds Skin: No rashes, No breakdown Musculoskeletal: No Tenderness to Palpation of Joints or Extremities Lymphatic: No Cervical, Supraclavicular, or Inguinal Adenopathy Neurological: Cranial nerves II-XII grossly intact, Neuro grossly intact, Motor Exam 5/5 strength throughout Psych/Mental Status: Normal Affect, Appropriate, Alert and oriented to time, place, person, mood and affect Laboratory Results 07/09/18 05:45: B-Natriuretic Peptide 901.1 H 07/09/18 11:19: POC Glucose 193 H 07/09/18 16:42: POC Glucose 95 07/09/18 21:14: POC Glucose 149 H 07/10/18 06:04: WBC Cancelled, Corrected WBC Cancelled, RBC Cancelled, Hgb Cancelled, Hct Cancelled, MCV Cancelled, MCH Cancelled, MCHC Cancelled, RDW Cancelled, RDW Differential Cancelled, Plt Count Cancelled, MPV Cancelled, Immature Gran % (Auto) Cancelled, Neut % (Auto) Cancelled, Lymph % (Auto) Cancelled, [place] % (Auto) Cancelled, Eos % (Auto) Cancelled, Baso % (Auto) Cancelled, Absolute Neuts (auto) Cancelled, Absolute Lymphs (auto) Cancelled, Total Counted Cancelled, Neutrophils % (Manual) Cancelled, Band Neutrophils % Cancelled, Lymphocytes % (Manual) Cancelled, Monocytes % (Manual) Cancelled, Eosinophils % (Manual) Cancelled, Basophils % (Manual) Cancelled, Metamyelocytes % Cancelled, Myelocytes % Cancelled, Promyelocytes % Cancelled, Blast Cells % Cancelled, Plasma Cell % (Manual) Cancelled, Other Cells % Cancelled, Nucleated RBCs/100 WBC Cancelled, Differential Comment Cancelled, Diff Path Review Cancelled, Hypersegmented Neuts Cancelled, Atypical Lymphocytes Cancelled, Reactive Lymphocytes Cancelled, Smudge Cells Cancelled, Toxic Granulation Cancelled, Dohle Bodies Cancelled, Shekhar Rods Cancelled, Platelet Estimate Cancelled, Plt Morphology Comment Cancelled, RBC Morphology Cancelled, Polychromasia Cancelled, Hypochromasia Cancelled, Poikilocytosis Cancelled, Basophilic Stippling Cancelled, Anisocytosis Cancelled, Microcytosis Cancelled, Macrocytosis Cancelled, Spherocytes Cancelled, Sickle Cells Cancelled, Target Cells Cancelled, Tear Drop Cells Cancelled, Ovalocytes Cancelled, Stomatocytes Cancelled, [place] Bodies Cancelled, [place] Cells Cancelled, Bite Cells Cancelled, Acanthocytes (Spur) Cancelled, Rouleaux Cancelled, Schistocytes Cancelled 07/10/18 06:04: Sodium 140, Potassium 3.5, Chloride 103, Carbon Dioxide 26.0, Anion Gap 11, BUN 15, Creatinine 1.23 H, Estim Creat Clear Calc 28.82, Est GFR (MDRD) Af Amer 55 L, Est GFR (MDRD) Non-Af 45 L, BUN/Creatinine Ratio 12.2, Glucose 180 H, Calcium 7.7 L 07/10/18 07:04: POC Glucose 187 H 07/10/18 08:05: WBC 7.3, RBC 3.92 L, Hgb 11.6 L, Hct 37.9, MCV 96.7, MCH 29.6, MCHC 30.6 L, RDW 17.8 H, RDW Differential 62.0 H, Plt Count 115 L, MPV 10.0, Immature Gran % (Auto) 0.500, Neut % (Auto) 83.0 H, Lymph % (Auto) 8.9 L, [place] % (Auto) 6.8, Eos % (Auto) 0.4, Baso % (Auto) 0.4, Absolute Neuts (auto) 6.1, Absolute Lymphs (auto) 0.65 L, Total Counted Not Reportable Diagnostic Data Chest X-Ray 07/09/18 11:20 IMPRESSION: Stable bilateral pleural effusions with bibasilar atelectasis and/or infiltrate and CHF. Electronically Signed: David Santamaria MD at 13:04 EST Tel [phone], Service support , Current Medications Acetaminophen (Tylenol) 650 mg PO Q4H PRN PRN PRN Reason: pain/fever Albuterol/Ipratropium (Duoneb) 3 ml INHALATION Q4HWA.RT [facility] Last Admin: 07/10/18 10:33 Dose: 3 ml Atorvastatin Calcium (Lipitor) 40 mg PO QHS [facility] Last Admin: 07/09/18 21:17 Dose: 40 mg Ciprofloxacin HCl (Cipro) 500 mg PO BID [facility] Stop: 07/11/18 10:01 Last Admin: 07/10/18 10:08 Dose: 500 mg Dextrose (D50w Syringe) 0 gm IV X1 PRN; Protocol PRN Reason: Hypoglycemia Furosemide (Lasix) 40 mg IV BID [facility] Last Admin: 07/10/18 10:05 Dose: 40 mg Glucagon () 1 mg IM .X1 PRN PRN Reason: Hypoglycemia Sodium Chloride () 250 mls @ 15 mls/hr IV .[id number] PRN PRN Reason: SALINE FLUSH Last Admin: 07/05/18 15:30 Dose: 15 mls/hr Sodium Chloride () 250 mls @ 15 mls/hr IV .[id number] PRN PRN Reason: SALINE FLUSH Insulin Human Lispro (Humalog Kwikpen (Bkc)) 0 unit SQ ACHS [facility]; Protocol Last Admin: 07/10/18 08:05 Dose: 1 units Lisinopril (Zestril) 5 mg PO DAILY [facility] Last Admin: 07/10/18 10:08 Dose: 5 mg Magnesium Hydroxide (Milk Of Magnesia) 30 ml PO DAILY PRN PRN Reason: Constipation Metolazone (Zaroxolyn) 5 mg PO DAILY [facility] Last Admin: 07/10/18 10:08 Dose: 5 mg Metoprolol Tartrate (Lopressor (Beta Tiarra)) 100 mg PO BID [facility] Last Admin: 07/10/18 11:16 Dose: Not Given Pantoprazole Sodium (Protonix) 20 mg PO DAILY [facility] Last Admin: 07/10/18 10:08 Dose: 20 mg Sodium Chloride () 5 - 15 ml IV UD PRN PRN Reason: SALINE FLUSH Last Admin: 07/10/18 10:09 Dose: 10 ml Medical Necessity - Tobacco Use Smoking Status: Former smoker Tobacco Use: Cigarettes Assessment/Plan All Active Problems UTI (urinary tract infection) (Acute) CHF (congestive heart failure) (Acute) 1. Acute hypoxic respiratory failure due to diastolic CHF exacerbation and bilateral pleural effusion has been stable on ~ 4L of oxygen since yesterday; she is not on oxygen at baseline. on IV lasix 40mg bid; metolazone 5mg daily added on yesterday urine output is still scanty; made only ~ 700mls over last 24 hours for thoracentesis tomorrow pulmonology and cardiology on board 2. Afib: Heart rate has remained around 108 Eliquis currently on hold on account of thoracentesis which is pending on metoprolol 100mg bid. 3. Diabetes mellitus: on ISS. Accuchecks ACHS 4. GERD; on PPI 5. UTI: on PO ciprofloxacin; tpday is day 4. to stop tomorrow to complete 5 days of antibiotics 6. NATI: Cr is slightly down to 1.23 today. will monitor 7. CAD s/p CABG: on statin and metoprolol 8. Thrombocytopenia: platelet count is 115 today. Asymptomatic. Will monitor DVT prophylaxis: SCDs; to resume eliquis after she gets thoracentesis tomorrow Disposition: for DC To TCU after thoracentesis tomorrow. w Code Visit Inpatient E&M: 31016 [facility] Hosp L3
--- NOTE | 2018-07-10 11:36 | PN_ITS ---
Patient Problems: Active and Suspected Problems UTI (urinary tract infection) (Acute) CHF (congestive heart failure) (Acute) Subjective: Patient seen and examined. She is more alert today. She denies any fever, chills, cough, chest pain, abdominal pain, diarrhea or vomiting. She says shortness of breath is better, though she is still on 4l of oxygen. Review of systems is otherwise negative. She had a catheter inserted yesterday and urine output for the past 24 hours was 2700 mils. Vitals/I&O's: Vital Signs Temp Pulse Resp BP Pulse Ox 97.0 F L 108 H 20 H 99/55 L 97 07/10/18 10:10 07/10/18 10:58 07/10/18 10:33 07/10/18 10:10 07/10/18 10:10 Oxygen Flow Rate (L/min) 4 Oxygen Delivery Method Nasal Cannula Weight: 115 lb 11.883 oz Body Mass Index (BMI) 24.0 Intake and Output for Last 24 Hours 07/08/18 07/09/18 07/10/18 23:59 23:59 23:59 Intake Total 480 / 480 970 / 970 100 / 100 Output Total 700 / 700 190 / 190 Balance 480 / 480 270 / 270 -90 / -90 General: Alert, Oriented x3, Cooperative, No apparent distress HEENT: Atraumatic, PERRLA, EOMI, Normocephalic Oral: Moist Mucosa Neck: Supple, No JVD, Negative Carotid Bruits Lungs: - - Decreased breath sounds bibasilarly. Poor inspiratory effort. Cardiovascular: Regular rate, Regular Rhythm, Normal S1, Normal S2, No murmurs Abdomen: Bowel Sounds Present, Soft, Non Tender, Non-Distended, No Hepato- splenomegaly Extremities: No clubbing, No cyanosis, No edema, Capillary Refill Less than 3 Seconds Skin: No rashes, No breakdown Musculoskeletal: No Tenderness to Palpation of Joints or Extremities Lymphatic: No Cervical, Supraclavicular, or Inguinal Adenopathy Neurological: Cranial nerves II-XII grossly intact, Neuro grossly intact, Motor Exam 5/5 strength throughout Psych/Mental Status: Normal Affect, Appropriate, Alert and oriented to time, place, person, mood and affect Laboratory Results 07/09/18 05:45: B-Natriuretic Peptide 901.1 H 07/09/18 11:19: POC Glucose 193 H 07/09/18 16:42: POC Glucose 95 07/09/18 21:14: POC Glucose 149 H 07/10/18 06:04: WBC Cancelled, Corrected WBC Cancelled, RBC Cancelled, Hgb Cancelled, Hct Cancelled, MCV Cancelled, MCH Cancelled, MCHC Cancelled, RDW Cancelled, RDW Differential Cancelled, Plt Count Cancelled, MPV Cancelled, Immature Gran % (Auto) Cancelled, Neut % (Auto) Cancelled, Lymph % (Auto) Cancelled, [place] % (Auto) Cancelled, Eos % (Auto) Cancelled, Baso % (Auto) Cancelled, Absolute Neuts (auto) Cancelled, Absolute Lymphs (auto) Cancelled, Total Counted Cancelled, Neutrophils % (Manual) Cancelled, Band Neutrophils % Cancelled, Lymphocytes % (Manual) Cancelled, Monocytes % (Manual) Cancelled, Eosinophils % (Manual) Cancelled, Basophils % (Manual) Cancelled, Metamyelocytes % Cancelled, Myelocytes % Cancelled, Promyelocytes % Cancelled, Blast Cells % Cancelled, Plasma Cell % (Manual) Cancelled, Other Cells % Cancelled, Nucleated RBCs/100 WBC Cancelled, Differential Comment Cancelled, Diff Path Review Cancelled, Hypersegmented Neuts Cancelled, Atypical Lymphocytes Cancelled, Reactive Lymphocytes Cancelled, Smudge Cells Cancelled, Toxic Granulation C ancelled, Dohle Bodies Cancelled, Shekhar Rods Cancelled, Platelet Estimate Cancelled, Plt Morphology Comment Cancelled, RBC Morphology Cancelled, Polychromasia Cancelled, Hypochromasia Cancelled, Poikilocytosis Cancelled, Basophilic Stippling Cancelled, Anisocytosis Cancelled, Microcytosis Cancelled, Macrocytosis Cancelled, Spherocytes Cancelled, Sickle Cells Cancelled, Target Cells Cancelled, Tear Drop Cells Cancelled, Ovalocytes Cancelled, Stomatocytes Cancelled, [place] Bodies Cancelled, Mike Cells Cancelled, Bite Cells Cancelled, Acanthocytes (Spur) Cancelled, Rouleaux Cancelled, Schistocytes Cancelled 07/10/18 06:04: Sodium 140, Potassium 3.5, Chloride 103, Carbon Dioxide 26.0, Anion Gap 11, BUN 15, Creatinine 1.23 H, Estim Creat Clear Calc 28.82, Est GFR (MDRD) Af Amer 55 L, Est GFR (MDRD) Non-Af 45 L, BUN/Creatinine Ratio 12.2, Glucose 180 H, Calcium 7.7 L 07/10/18 07:04: POC Glucose 187 H 07/10/18 08:05: WBC 7.3, RBC 3.92 L, Hgb 11.6 L, Hct 37.9, MCV 96.7, MCH 29.6, MCHC 30.6 L, RDW 17.8 H, RDW Differential 62.0 H, Plt Count 115 L, MPV 10.0, Immature Gran % (Auto) 0.500, Neut % (Auto) 83.0 H, Lymph % (Auto) 8.9 L, [place] % (Auto) 6.8, Eos % (Auto) 0.4, Baso % (Auto) 0.4, Absolute Neuts (auto) 6.1, Absolute Lymphs (auto) 0.65 L, Total Counted Not Reportable Diagnostic Data Chest X-Ray 07/09/18 11:20 IMPRESSION: Stable bilateral pleural effusions with bibasilar atelectasis and/or infiltrate and CHF. Electronically Signed: David Santamaria MD at 13:04 EST Tel [phone], Service support , Current Medications Acetaminophen (Tylenol) 650 mg PO Q4H PRN PRN PRN Reason: pain/fever Albuterol/Ipratropium (Duoneb) 3 ml INHALATION Q4HWA.RT [facility] Last Admin: 07/10/18 10:33 Dose: 3 ml Atorvastatin Calcium (Lipitor) 40 mg PO QHS [facility] Last Admin: 07/09/18 21:17 Dose: 40 mg Ciprofloxacin HCl (Cipro) 500 mg PO BID [facility] Stop: 07/11/18 10:01 Last Admin: 07/10/18 10:08 Dose: 500 mg Dextrose (D50w Syringe) 0 gm IV X1 PRN; Protocol PRN Reason: Hypoglycemia Furosemide (Lasix) 40 mg IV BID [facility] Last Admin: 07/10/18 10:05 Dose: 40 mg Glucagon () 1 mg IM .X1 PRN PRN Reason: Hypoglycemia Sodium Chloride () 250 mls @ 15 mls/hr IV .[id number] PRN PRN Reason: SALINE FLUSH Last Admin: 07/05/18 15:30 Dose: 15 mls/hr Sodium Chloride () 250 mls @ 15 mls/hr IV .[id number] PRN PRN Reason: SALINE FLUSH Insulin Human Lispro (Humalog Kwikpen (Bkc)) 0 unit SQ ACHS [facility]; Protocol Last Admin: 07/10/18 08:05 Dose: 1 units Lisinopril (Zestril) 5 mg PO DAILY [facility] Last Admin: 07/10/18 10:08 Dose: 5 mg Magnesium Hydroxide (Milk Of Magnesia) 30 ml PO DAILY PRN PRN Reason: Constipation Metolazone (Zaroxolyn) 5 mg PO DAILY [facility] Last Admin: 07/10/18 10:08 Dose: 5 mg Metoprolol Tartrate (Lopressor (Beta Tiarra)) 100 mg PO BID [facility] Last Admin: 07/10/18 11:16 Dose: Not Given Pantoprazole Sodium (Protonix) 20 mg PO DAILY [facility] Last Admin: 07/10/18 10:08 Dose: 20 mg Sodium Chloride () 5 - 15 ml IV UD PRN PRN Reason: SALINE FLUSH Last Admin: 07/10/18 10:09 Dose: 10 ml Medical Necessity - Tobacco Use Smoking Status: Former smoker Tobacco Use: Cigarettes Assessment/Plan All Active Problems UTI (urinary tract infection) (Acute) CHF (congestive heart failure) (Acute) 1. Acute hypoxic respiratory failure due to diastolic CHF exacerbation and bilateral pleural effusion * has been stable on ~ 4L of oxygen since yesterday; she is not on oxygen at baseline. * on IV lasix 40mg bid; metolazone 5mg daily added on yesterday * urine output is still scanty; made only ~ 700mls over last 24 hours * for thoracentesis tomorrow * pulmonology and cardiology on board * * 2. Afib: * Heart rate has remained around 108 * Eliquis currently on hold on account of thoracentesis which is pending * on metoprolol 100mg bid. 3. Diabetes mellitus: on ISS. Accuchecks ACHS 4. GERD; on PPI 5. UTI: on PO ciprofloxacin; tpday is day 4. to stop tomorrow to complete 5 days of antibiotics 6. NATI: Cr is slightly down to 1.23 today. will monitor 7. CAD s/p CABG: on statin and metoprolol 8. Thrombocytopenia: platelet count is 115 today. Asymptomatic. Will monitor DVT prophylaxis: SCDs; to resume eliquis after she gets thoracentesis tomorrow Disposition: for DC To TCU after thoracentesis tomorrow. w Code Visit Inpatient E&M: 52113 [facility] Hosp L3
[2018-07-10 13:16] LABS: Bedside Glucose 184 mg/dL (70-110)
[2018-07-10 16:27] LABS: Bedside Glucose 366 mg/dL (70-110)
[2018-07-10] MEDS: Atorvastatin Calcium 40 MG Tablet PO (23:09)
[2018-07-10] MEDS: Metoprolol Tartrate 100 MG Tablet PO (23:09)
[2018-07-10 23:36] LABS: Bedside Glucose 364 mg/dL (70-110)
[2018-07-11] VITALS (23 sets, daily range): BP systolic 87–114; BP diastolic 55–74; PULSE 74–109; RESP 16–22; TEMP 36.1–36.8; O2SAT 91–99
--- NOTE | 2018-07-11 | FLU_PTH ---
PATIENT: JENNIFER CANTRELL LOC: [facility] U#:[id number] AGE/SX: 72/F ROOM: [facility] RE07/04/[address]: Dr. Keeley Wells MD : 1945 BED: 1 DIS: 07/13/2018 SPEC #: [id number] RECD: 07/11/18 14:19 STATUS: JADA REShruthi #: [id number] LUDMILA: 07/11/18 00:[address]: Keeley Wells DEPT: CYTOLOGY RECD BY: Gabino Foster ENTERED: 07/11/18 14:19 SP TYPE: Fluid OTHR DR: DO Dr. Benjie Crain MD Dr. Robert Lindsay, DO Dr. Siamak Karimian, MD Tissues: THORACIC FLUID Procedures: Pap Stain (control) Special Stain Group II Surgery Specimen Level IV Cell Block Cytospin Fluid HEADER OPERATION: Ultrasound-guided right thoracentesis PRE-OP DIAGNOSIS: Right pleural effusion TISSUE SUBMITTED: Thoracentesis fluid for cytology DIAGNOSIS CYTOLOGY Thoracentesis fluid for cytology (cytospin and cell block): Negative for malignant cells. AM:emmanuel 07/12/18 CYTOLOGY STUDY Slides are reviewed. CYTOLOGY GROSS Received is 100 ml of yellow cloudy fluid labeled with the patient's name and and designated per the requisition as thoracentesis. Submitted for cytology preparation including cell block. / 07/11/18 TC:5 CPT: 11105, 01532
[2018-07-11] MEDS: 0.9% NaCl Peripheral Flush Adult/Peds IV ×2 (06:06→10:42)
[2018-07-11 06:40] LABS: Bedside Glucose 122 mg/dL (70-110)
[2018-07-11] MEDS: Ipratropium/Albuterol Sulfate 3 ML AMPUL.NEB INHALATION ×3 (07:07→18:52)
--- NOTE | 2018-07-11 08:00 | US_ITS ---
PROCEDURE: ULTRASOUND GUIDED THORACENTESIS. DATE: July 11, 2018.. INDICATION: Female, 72 years old. Right pleural effusion. PHYSICIAN: David Santamaria M.D. PROCEDURE: The risks, benefits, and alternatives to the procedure were explained to the patient. The specific risks of bleeding, infection, and pneumothorax requiring chest tube insertion were discussed and accepted. Written informed consent was obtained. Ultrasonographic evaluation of the right lower pleural space was carried out. An adequate pocket was identified. The patient was placed in the sitting, upright position. The overlying skin was prepped and draped in sterile fashion. 1% lidocaine was administered subcutaneously for local anesthesia. Under ultrasound guidance, a 5 [place]ian thoracentesis needle/catheter system was advanced into the right posterior lower pleural fluid collection. Approximately 1420 mL of paula-colored fluid was drained. The catheter was removed, and a sterile dressing was applied. A specimen was collected and sent to the laboratory for analysis, as requested by the referring clinician. The patient tolerated the procedure well. A chest x-ray was ordered. US/Thoracentesis W US IMPRESSION: Ultrasound-guided right thoracentesis. Electronically Signed: David Santamaria MD at 12:55 EST Tel [phone], Service support ,
[2018-07-11 08:33] LABS: Anion Gap 8 (5-15); BUN 15 mg/dL (7-18); BUN/Creat Ratio 10.1 RATIO (10-20); Calcium,Total 7.2 mg/dL (8.5-10.1); Chloride 101 mmol/L (98-107); Creatinine, Serum 1.48 mg/dL (0.55-1.02); EST Glomerular Filtration Rate 37 mL/min (>60); Est Glom Filt Rate - Afr Amer 44 mL/min (>60); Estimated Creatinine Clearance 23.95 ml/min; Glucose 109 mg/dL (74-106); Potassium 3.3 mmol/L (3.5-5.1); Sodium Level 140 mmol/L (136-145)
[2018-07-11 08:34] LABS: Absolute Lymphocyte Count 0.72 X10^3/ul (0.83-4.51); Absolute Neutrophil Count 6.9 X10^3/uL (2.0-7.7); Basophil# 0.04 X10^3/uL; Basophil% 0.5 % (0-1); Eosinophil# 0.09 X10^3/uL; Eosinophils% 1.1 % (0-5); Hemoglobin 10.3 g/dl (12.0-15.0); Lymphocyte # 0.72 X10^3/ul (4.0); Lymphocyte % 8.6 % (19-41); Mean Corp Hgb Conc 31.2 g/gl (32-36); Mean Corpuscular Hgb 29.9 pg (27.0-32.0); Mean Corpuscular Volume 95.7 fL (81-99); Mean Platelet Vol. 9.5 fl (6.2-12.0); Monocyte# 0.55 X10^3/uL; Monocyte% 6.6 % (0-10); Neutrophil # 6.93 X10^3/uL (2.7-7.7); Neutrophil % 82.7 % (47-70); POSITIVE COUNT NO; POSITIVE DIFFERENTIAL NO; POSITIVE MORPHOLOGY NO; Platelet Count 119 K/mm3 (150-450); RBC Distribution Width CV 17.8 % (11.6-14.6); RBC Distribution Width SD 61.5 fl (35.1-43.9); Red Blood Count 3.45 M/mm3 (4.2-5.4); White Blood Count 8.4 K/mm3 (4.4-11.0)
[2018-07-11 08:46] LABS: ALB/GLOB Ratio 0.5 RATIO (0.9-2.4); Globulin 3.8 g/dL (2.2-4.2); LDH 427 U/L (84-246); Protein, Total 5.8 g/dL (6.4-8.2)
[2018-07-11 09:21] LABS: International Normalized Ratio 1.1; Prothrombin Time (Protime)PT. 13.7 SECONDS (11.7-14.9)
[2018-07-11 09:22] LABS: Partial Thromboplast Time 28.1 Seconds (24.1-36.2)
[2018-07-11] MEDS: Lisinopril 5 MG Tablet PO (10:41)
[2018-07-11] MEDS: Pantoprazole Sodium 20 MG Tablet PO (10:41)
[2018-07-11] MEDS: Ciprofloxacin 500 MG Tablet PO (10:41)
[2018-07-11] MEDS: Furosemide 40 MG/4 ML Vial IV (10:41)
[2018-07-11] MEDS: metOLazone 5 MG Tablet PO (10:41)
--- NOTE | 2018-07-11 10:41 | CASEMGMT ---
Due to unforeseen circumstances patient will not be able to go to [facility] TCU. SW called patient's sister and left her a requesting a return call. Kavya RADER
[2018-07-11] MEDS: Metoprolol Tartrate 100 MG Tablet PO (10:42)
--- NOTE | 2018-07-11 10:56 | PN_ITS ---
Patient Problems: Active and Suspected Problems UTI (urinary tract infection) (Acute) CHF (congestive heart failure) (Acute) Subjective: The patient was seen and examined at the bedside this morning. Events from the last 24 hours have been reviewed. The patient is currently afebrile, hemodynamically stable and maintaining appropriate oxygen saturations on 5 L/min via nasal cannula. Despite being on diuretic therapy, the patient continues to have an overall daily positive fluid balance. Creatinine is increased to 1.48. She is awaiting scheduled thoracentesis this morning. Objective: The patient's most recent lab work, culture data and imaging studies have all been personally reviewed. Surface echocardiogram dated July 06 revealed normal LV size and function with an ejection fraction of 65%. Right ventricular systolic pressure was estimated to be 47 mmHg. - Physical Exam General: Alert, No apparent distress HEENT: Atraumatic, PERRLA, Normocephalic Oral: Moist Mucosa, No Gingival or Mucosal Lesions/ Ulcerations Neck: Supple, No Nodes, Trachea Midline Lungs: No rhonchi, No wheeze, No rales, Diminished Cardiovascular: Regular rate, Regular Rhythm, Normal S1, Normal S2, No murmurs Abdomen: Bowel Sounds Present, Soft, Non Tender Extremities: No clubbing, No cyanosis, No edema Skin: No breakdown Musculoskeletal: No Tenderness to Palpation of Joints or Extremities Lymphatic: No Cervical, Supraclavicular, or Inguinal Adenopathy Neurological: Neuro grossly intact Psych/Mental Status: Normal Affect, Appropriate Vital Signs Temp Pulse Resp BP Pulse Ox 36.1 C L 107 H 18 104/72 96 07/11/18 10:47 07/11/18 10:47 07/11/18 10:47 07/11/18 10:47 07/11/18 10:47 Oxygen Flow Rate (L/min) 5 Oxygen Delivery Method Nasal Cannula Weight: 119 lb 4.321 oz Body Mass Index (BMI) 24.0 Intake and Output for Last 24 Hours 07/09/18 07/10/18 07/11/18 23:59 23:59 23:59 Intake Total 970 / 970 1120 / 1120 100 / 100 Output Total 700 / 700 515 / 515 600 / 600 Balance 270 / 270 605 / 605 -500 / -500 Laboratory Tests Past 24 Hrs 07/11/18 07/11/18 07/11/18 07:05 07:05 07:05 WBC 8.4 RBC 3.45 L Hgb 10.3 L Hct 33.0 L MCV 95.7 MCH 29.9 MCHC 31.2 L RDW 17.8 H RDW Differential 61.5 H Plt Count 119 L MPV 9.5 Immature Gran % (Auto) 0.500 Neut % (Auto) 82.7 H Lymph % (Auto) 8.6 L [place] % (Auto) 6.6 Eos % (Auto) 1.1 Baso % (Auto) 0.5 Absolute Neuts (auto) 6.9 Absolute Lymphs (auto) 0.72 L Total Counted Not Reportable PT INR APTT Sodium 140 Potassium 3.3 L Chloride 101 Carbon Dioxide 31.0 Anion Gap 8 BUN 15 Creatinine 1.48 H Estim Creat Clear Calc 23.95 Est GFR (MDRD) Af Amer 44 L Est GFR (MDRD) Non-Af 37 L BUN/Creatinine Ratio 10.1 Glucose 109 H Calcium 7.2 L Lactate Dehydrogenase 427 H Total Protein 5.8 L Globulin 3.8 Albumin/Globulin Ratio 0.5 L 07/11/18 08:58 WBC RBC Hgb Hct MCV MCH MCHC RDW RDW Differential Plt Count MPV Immature Gran % (Auto) Neut % (Auto) Lymph % (Auto) [place] % (Auto) Eos % (Auto) Baso % (Auto) Absolute Neuts (auto) Absolute Lymphs (auto) Total Counted PT 13.7 INR 1.1 APTT 28.1 Sodium Potassium Chloride Carbon Dioxide Anion Gap BUN Creatinine Estim Creat Clear Calc Est GFR (MDRD) Af Amer Est GFR (MDRD) Non-Af BUN/Creatinine Ratio Glucose Calcium Lactate Dehydrogenase Total Protein Globulin Albumin/Globulin Ratio POC Glucose 07/11/18 07/10/18 07/10/18 06:33 23:13 16:19 POC Glucose 122 H 364 H 366 H 07/10/18 12:00 POC Glucose 184 H Clinical Impression(s) from Imaging Studies Chest X-Ray 07/04/18 09:37 IMPRESSION: Bilateral pleural effusion more on the right side underlying infiltrate cannot be excluded Electronically Signed: Guerrero Ochoa, at 10:44 EST Tel , Service support , Chest X-Ray 07/06/18 13:15 IMPRESSION: Large bilateral effusions atelectasis persistent since prior study pacemaker status post sternotomy. Electronically Signed: Susan Murphy MD at 18:16 EST Tel , Service support , Chest X-Ray 07/09/18 11:20 IMPRESSION: Stable bilateral pleural effusions with bibasilar atelectasis and/or infiltrate and CHF. Electronically Signed: David Santamaria MD at 13:04 EST Tel [phone], Service support , Medical Necessity - Tobacco Use Smoking Status: Former smoker Tobacco Use: Cigarettes Assessment/Plan All Active Problems UTI (urinary tract infection) (Acute) CHF (congestive heart failure) (Acute) RECOMMENDATIONS: 1. Continue attempts at volume optimization with diuretics as tolerated. 2. Plans for diagnostic/therapeutic thoracentesis today. 3. Obtain daily weights. 4. Resume Eliquis after thoracentesis. IMPRESSIONS: 1. Acute hypoxic respiratory failure secondary to decompensated heart failure/bilateral pleural effusions Recommend continued attempts at volume optimization with diuretic therapy. Continue fluid restriction and obtain daily weights. Wean supplemental oxygen as tolerated and coverage aggressive incentive spirometer use. Tentative plans for diagnostic/therapeutic thoracentesis sometime today. Will await pleural fluid results. Restart Eliquis after thoracentesis. 2. Atrial fibrillation/coronary artery disease status post CABG/valvular heart disease Continue current medical management per cardiology recommendations. 3. Advanced age and deconditioning/diabetes/GERD Complicates care, management, recovery and prognosis. Okay to continue home medications from my perspective. This note was generated with [employer] software. It may contain incorrect words, spelling, and punctuation that were not noted in checking the note before signing. Code Visit Inpatient E&M: 12613 Subs Hosp L2
--- NOTE | 2018-07-11 11:47 | RAD_ITS ---
STUDY: X-RAY CHEST REASON FOR EXAM: Female, 72 years old. Post right-sided thoracentesis TECHNIQUE: Single frontal view of the chest. Inspiratory and expiratory level. COMPARISON: 07/09/2018. FINDINGS: There is no demonstrated pneumothorax. There is markedly decreased right pleural effusion when compared to previous examination with residual small fluid in the right base, minimal blunting of the right costophrenic angle, the minor fissure is outlined, there is atelectasis/volume loss in the right base. The aeration overall is markedly improved in the right lung. There is persistent airspace disease in the left lung with vascular prominence and effusion. Continued opacification left hemidiaphragm. 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 Normal mediastinum and billy. Normal visualized pulmonary arteries. There is atherosclerotic calcification of the aortic arch with tortuosity. There are diffuse degenerative changes of the visualized thoracic spine. There is demineralization of osseous structures. Levoscoliosis of the upper lumbar spine. RAD/Chest Insp/Exp 2 View IMPRESSION: Status post thoracotomy with markedly decreased right pleural effusion and no pneumothorax detected. Residual airspace disease with atelectasis and minimal residual effusion in the right base. Stable cardiac enlargement, presumed left pleural effusion and airspace disease, postsurgical changes. Electronically Signed: Ronda Portillo MD at 12:08 EST , Service support ,
[2018-07-11 12:02] LABS: Cytology, Body Fluid / CSF SEE PATHOLOGY REPORT
[2018-07-11 12:20] LABS: Bedside Glucose 124 mg/dL (70-110)
[2018-07-11 12:22] LABS: Body Fluid Mononuclear WBC # 0.023 10^3/uL; Body Fluid Mononuclear WBC % 46.9 %; Body Fluid Polynuclear WBC # 0.026 10^3/uL; Body Fluid Polynuclear WBC % 53.1 %; Body Fluid Total Cells Counted 0.056 10^3/ul (0.000-0.000); White Blood Count/Body Fluid 0.049 10^3/uL
--- NOTE | 2018-07-11 12:46 | PCM.PN.HOSP ---
Patient Problems: Active and Suspected Problems UTI (urinary tract infection) (Acute) CHF (congestive heart failure) (Acute) Subjective: Patient seen and examined. She had no complaints. She was on 5 L of oxygen but says shortness of breath had improved. She denied any chest pain, wheezing, palpitations, cough, abdominal pain, diarrhea or vomiting. She is scheduled to undergo thoracentesis of the pleural effusion today. Labs and vitals reviewed. Creatinine trended up to 1.48 but this is likely due to the effect of Lasix. Potassium is also 3.3 likely due to Lasix. Urine output over last 24 hours was only 515 mils. Cumulative fluid balance shows that she is in positive balance by about 324 mils. Vitals/I&O's: Vital Signs Temp Pulse Resp BP Pulse Ox 97.9 F 106 H 18 114/69 98 07/11/18 12:10 07/11/18 12:10 07/11/18 12:10 07/11/18 12:10 07/11/18 12:10 Oxygen Flow Rate (L/min) 4 Oxygen Delivery Method Nasal Cannula Weight: 119 lb 4.321 oz Body Mass Index (BMI) 24.0 Intake and Output for Last 24 Hours 07/09/18 07/10/18 07/11/18 23:59 23:59 23:59 Intake Total 970 / 970 1120 / 1120 100 / 100 Output Total 700 / 700 515 / 515 600 / 600 Balance 270 / 270 605 / 605 -500 / -500 General: Alert, Oriented x3, Cooperative, No apparent distress HEENT: Atraumatic, PERRLA, EOMI, Normocephalic Oral: Moist Mucosa Neck: Supple, No JVD, Negative Carotid Bruits Lungs: - - Decreased breath sounds bibasilally. Poor inspiratory effort. Cardiovascular: Regular rate, Regular Rhythm, Normal S1, Normal S2, No murmurs Abdomen: Bowel Sounds Present, Soft, Non Tender, Non-Distended, No Hepato-splenomegaly Extremities: No clubbing, No cyanosis, No edema, Capillary Refill Less than 3 Seconds Skin: No rashes, No breakdown Musculoskeletal: No Tenderness to Palpation of Joints or Extremities Lymphatic: No Cervical, Supraclavicular, or Inguinal Adenopathy Neurological: Cranial nerves II-XII grossly intact, Neuro grossly intact, Motor Exam 5/5 strength throughout Psych/Mental Status: Normal Affect, Appropriate, Alert and oriented to time, place, person, mood and affect Laboratory Results 07/10/18 12:00: POC Glucose 184 H 07/10/18 16:19: POC Glucose 366 H 07/10/18 23:13: POC Glucose 364 H 07/11/18 06:33: POC Glucose 122 H 07/11/18 07:05: WBC 8.4, RBC 3.45 L, Hgb 10.3 L, Hct 33.0 L, MCV 95.7, MCH 29.9, MCHC 31.2 L, RDW 17.8 H, RDW Differential 61.5 H, Plt Count 119 L, MPV 9.5, Immature Gran % (Auto) 0.500, Neut % (Auto) 82.7 H, Lymph % (Auto) 8.6 L, [place] % (Auto) 6.6, Eos % (Auto) 1.1, Baso % (Auto) 0.5, Absolute Neuts (auto) 6.9, Absolute Lymphs (auto) 0.72 L, Total Counted Not Reportable 07/11/18 07:05: Sodium 140, Potassium 3.3 L, Chloride 101, Carbon Dioxide 31.0, Anion Gap 8, BUN 15, Creatinine 1.48 H, Estim Creat Clear Calc 23.95, Est GFR (MDRD) Af Amer 44 L, Est GFR (MDRD) Non-Af 37 L, BUN/Creatinine Ratio 10.1, Glucose 109 H, Calcium 7.2 L 07/11/18 07:05: Lactate Dehydrogenase 427 H, Total Protein 5.8 L, Globulin 3.8, Albumin/Globulin Ratio 0.5 L 07/11/18 08:58: PT 13.7, INR 1.1, APTT 28.1 07/11/18 11:15: Fluid Glucose Cancelled, Fluid Total Protein Cancelled, Fluid LDH Cancelled 07/11/18 11:30: Fluid Glucose Pending, Fluid Total Protein Pending, Fluid LDH Pending 07/11/18 11:30: Fluid Source Pending, Fluid Color Pending, Fluid Appearance Pending, Fluid WBC Pending, Fluid RBC Pending, Fluid Tot Cell Count Pending, Fl Pathologist Comment Pending, Fluid Comment 2 Pending 07/11/18 11:30: Miscellaneous Cytology Pending 07/11/18 12:11: POC Glucose 124 H Current Medications Acetaminophen (Tylenol) 650 mg PO Q4H PRN PRN PRN Reason: pain/fever Albuterol/Ipratropium (Duoneb) 3 ml INHALATION Q4HWA.RT [facility] Last Admin: 07/11/18 07:07 Dose: 3 ml Atorvastatin Calcium (Lipitor) 40 mg PO QHS [facility] Last Admin: 07/10/18 23:09 Dose: 40 mg Dextrose (D50w Syringe) 0 gm IV X1 PRN; Protocol PRN Reason: Hypoglycemia Furosemide (Lasix) 40 mg IV BID [facility] Last Admin: 07/11/18 10:41 Dose: 40 mg Glucagon () 1 mg IM .X1 PRN PRN Reason: Hypoglycemia Sodium Chloride () 250 mls @ 15 mls/hr IV .[id number] PRN PRN Reason: SALINE FLUSH Last Admin: 07/05/18 15:30 Dose: 15 mls/hr Sodium Chloride () 250 mls @ 15 mls/hr IV .[id number] PRN PRN Reason: SALINE FLUSH Insulin Human Lispro (Humalog Kwikpen (Bkc)) 0 unit SQ ACHS [facility]; Protocol Last Admin: 07/11/18 12:37 Dose: Not Given Lisinopril (Zestril) 5 mg PO DAILY [facility] Last Admin: 07/11/18 10:41 Dose: 5 mg Magnesium Hydroxide (Milk Of Magnesia) 30 ml PO DAILY PRN PRN Reason: Constipation Metolazone (Zaroxolyn) 5 mg PO DAILY [facility] Last Admin: 07/11/18 10:41 Dose: 5 mg Metoprolol Tartrate (Lopressor (Beta Tiarra)) 100 mg PO BID [facility] Last Admin: 07/11/18 10:42 Dose: 100 mg Pantoprazole Sodium (Protonix) 20 mg PO DAILY [facility] Last Admin: 07/11/18 10:41 Dose: 20 mg Sodium Chloride () 5 - 15 ml IV UD PRN PRN Reason: SALINE FLUSH Last Admin: 07/11/18 10:42 Dose: 10 ml Medical Necessity - Tobacco Use Smoking Status: Former smoker Tobacco Use: Cigarettes Assessment/Plan All Active Problems UTI (urinary tract infection) (Acute) CHF (congestive heart failure) (Acute) 1. Acute hypoxic respiratory failure due to diastolic CHF exacerbation and bilateral pleural effusion on 5L of oxygen at time of review this morning. says SOB is better on IV lasix 40mg bid and metolazone 5mg daily urien output just 500cc over last 24 hours for diagnostic thoracentesis today pulmo and cardiology on board 2. Afib: Heart rate has remained around 108 Eliquis currently on hold on account of thoracentesis on metoprolol 100mg bid. will requme eliquis after thoracentesis 3. Diabetes mellitus: on ISS. Accuchecks ACHS 4. GERD; on PPI 5. UTI: on PO ciprofloxacin; will complete 5 days of ciprofloxacin today. 6. NATI: Cr trended up slightly to 1.48 today. Likely due to lasix. Will continue to monitor i 7. HypoKalemia: Potassium is 3.3 today. Will monitor 8. CAD s/p CABG: on statin and metoprolol 9. Thrombocytopenia: platelet count is 119 today. Asymptomatic. Will monitor DVT prophylaxis: SCDs; to resume eliquis after she gets thoracentesis Disposition: awaiting placement in SNF. Code Visit Inpatient E&M: 62832 Subs Hosp L3
--- NOTE | 2018-07-11 12:50 | PN_ITS ---
Patient Problems: Active and Suspected Problems UTI (urinary tract infection) (Acute) CHF (congestive heart failure) (Acute) Subjective: Patient seen and examined. She had no complaints. She was on 5 L of oxygen but says shortness of breath had improved. She denied any chest pain, wheezing, palpitations, cough, abdominal pain, diarrhea or vomiting. She is scheduled to undergo thoracentesis of the pleural effusion today. Labs and vitals reviewed. Creatinine trended up to 1.48 but this is likely due to the effect of Lasix. Potassium is also 3.3 likely due to Lasix. Urine output over last 24 hours was only 515 mils. Cumulative fluid balance shows that she is in positive balance by about 324 mils. Vitals/I&O's: Vital Signs Temp Pulse Resp BP Pulse Ox 97.9 F 106 H 18 114/69 98 07/11/18 12:10 07/11/18 12:10 07/11/18 12:10 07/11/18 12:10 07/11/18 12:10 Oxygen Flow Rate (L/min) 4 Oxygen Delivery Method Nasal Cannula Weight: 119 lb 4.321 oz Body Mass Index (BMI) 24.0 Intake and Output for Last 24 Hours 07/09/18 07/10/18 07/11/18 23:59 23:59 23:59 Intake Total 970 / 970 1120 / 1120 100 / 100 Output Total 700 / 700 515 / 515 600 / 600 Balance 270 / 270 605 / 605 -500 / -500 General: Alert, Oriented x3, Cooperative, No apparent distress HEENT: Atraumatic, PERRLA, EOMI, Normocephalic Oral: Moist Mucosa Neck: Supple, No JVD, Negative Carotid Bruits Lungs: - - Decreased breath sounds bibasilally. Poor inspiratory effort. Cardiovascular: Regular rate, Regular Rhythm, Normal S1, Normal S2, No murmurs Abdomen: Bowel Sounds Present, Soft, Non Tender, Non-Distended, No Hepato- splenomegaly Extremities: No clubbing, No cyanosis, No edema, Capillary Refill Less than 3 Seconds Skin: No rashes, No breakdown Musculoskeletal: No Tenderness to Palpation of Joints or Extremities Lymphatic: No Cervical, Supraclavicular, or Inguinal Adenopathy Neurological: Cranial nerves II-XII grossly intact, Neuro grossly intact, Motor Exam 5/5 strength throughout Psych/Mental Status: Normal Affect, Appropriate, Alert and oriented to time, place, person, mood and affect Laboratory Results 07/10/18 12:00: POC Glucose 184 H 07/10/18 16:19: POC Glucose 366 H 07/10/18 23:13: POC Glucose 364 H 07/11/18 06:33: POC Glucose 122 H 07/11/18 07:05: WBC 8.4, RBC 3.45 L, Hgb 10.3 L, Hct 33.0 L, MCV 95.7, MCH 29.9, MCHC 31.2 L, RDW 17.8 H, RDW Differential 61.5 H, Plt Count 119 L, MPV 9.5, Immature Gran % (Auto) 0.500, Neut % (Auto) 82.7 H, Lymph % (Auto) 8.6 L, [place] % (Auto) 6.6, Eos % (Auto) 1.1, Baso % (Auto) 0.5, Absolute Neuts (auto) 6.9, Absolute Lymphs (auto) 0.72 L, Total Counted Not Reportable 07/11/18 07:05: Sodium 140, Potassium 3.3 L, Chloride 101, Carbon Dioxide 31.0, Anion Gap 8, BUN 15, Creatinine 1.48 H, Estim Creat Clear Calc 23.95, Est GFR (MDRD) Af Amer 44 L, Est GFR (MDRD) Non-Af 37 L, BUN/Creatinine Ratio 10.1, Glucose 109 H, Calcium 7.2 L 07/11/18 07:05: Lactate Dehydrogenase 427 H, Total Protein 5.8 L, Globulin 3.8, Albumin/Globulin Ratio 0.5 L 07/11/18 08:58: PT 13.7, INR 1.1, APTT 28.1 07/11/18 11:15: Fluid Glucose Cancelled, Fluid Total Protein Cancelled, Fluid LDH Cancelled 07/11/18 11:30: Fluid Glucose Pending, Fluid Total Protein Pending, Fluid LDH Pending 07/11/18 11:30: Fluid Source Pending, Fluid Color Pending, Fluid Appearance Pending, Fluid WBC Pending, Fluid RBC Pending, Fluid Tot Cell Count Pending, Fl Pathologist Comment Pending, Fluid Comment 2 Pending 07/11/18 11:30: Miscellaneous Cytology Pending 07/11/18 12:11: POC Glucose 124 H Current Medications Acetaminophen (Tylenol) 650 mg PO Q4H PRN PRN PRN Reason: pain/fever Albuterol/Ipratropium (Duoneb) 3 ml INHALATION Q4HWA.RT [facility] Last Admin: 07/11/18 07:07 Dose: 3 ml Atorvastatin Calcium (Lipitor) 40 mg PO QHS [facility] Last Admin: 07/10/18 23:09 Dose: 40 mg Dextrose (D50w Syringe) 0 gm IV X1 PRN; Protocol PRN Reason: Hypoglycemia Furosemide (Lasix) 40 mg IV BID [facility] Last Admin: 07/11/18 10:41 Dose: 40 mg Glucagon () 1 mg IM .X1 PRN PRN Reason: Hypoglycemia Sodium Chloride () 250 mls @ 15 mls/hr IV .[id number] PRN PRN Reason: SALINE FLUSH Last Admin: 07/05/18 15:30 Dose: 15 mls/hr Sodium Chloride () 250 mls @ 15 mls/hr IV .[id number] PRN PRN Reason: SALINE FLUSH Insulin Human Lispro (Humalog Kwikpen (Bkc)) 0 unit SQ ACHS [facility]; Protocol Last Admin: 07/11/18 12:37 Dose: Not Given Lisinopril (Zestril) 5 mg PO DAILY [facility] Last Admin: 07/11/18 10:41 Dose: 5 mg Magnesium Hydroxide (Milk Of Magnesia) 30 ml PO DAILY PRN PRN Reason: Constipation Metolazone (Zaroxolyn) 5 mg PO DAILY [facility] Last Admin: 07/11/18 10:41 Dose: 5 mg Metoprolol Tartrate (Lopressor (Beta Tiarra)) 100 mg PO BID [facility] Last Admin: 07/11/18 10:42 Dose: 100 mg Pantoprazole Sodium (Protonix) 20 mg PO DAILY [facility] Last Admin: 07/11/18 10:41 Dose: 20 mg Sodium Chloride () 5 - 15 ml IV UD PRN PRN Reason: SALINE FLUSH Last Admin: 07/11/18 10:42 Dose: 10 ml Medical Necessity - Tobacco Use Smoking Status: Former smoker Tobacco Use: Cigarettes Assessment/Plan All Active Problems UTI (urinary tract infection) (Acute) CHF (congestive heart failure) (Acute) 1. Acute hypoxic respiratory failure due to diastolic CHF exacerbation and bilateral pleural effusion * on 5L of oxygen at time of review this morning. says SOB is better * on IV lasix 40mg bid and metolazone 5mg daily * urien output just 500cc over last 24 hours * for diagnostic thoracentesis today * pulmo and cardiology on board * 2. Afib: * Heart rate has remained around 108 * Eliquis currently on hold on account of thoracentesis * on metoprolol 100mg bid. * will requme eliquis after thoracentesis 3. Diabetes mellitus: on ISS. Accuchecks ACHS 4. GERD; on PPI 5. UTI: on PO ciprofloxacin; will complete 5 days of ciprofloxacin today. 6. NATI: Cr trended up slightly to 1.48 today. Likely due to lasix. Will continue to monitor i 7. HypoKalemia: Potassium is 3.3 today. Will monitor 8. CAD s/p CABG: on statin and metoprolol 9. Thrombocytopenia: platelet count is 119 today. Asymptomatic. Will monitor DVT prophylaxis: SCDs; to resume eliquis after she gets thoracentesis Disposition: awaiting placement in SNF. Code Visit Inpatient E&M: 12195 [facility] Hosp L3
[2018-07-11 13:51] LABS: LDH,Body Fluid 47 Units/l (Not Establ.)
[2018-07-11 14:12] LABS: Auto B Fluid Analyzer BKGD Ct COUNTS W/IN LIMITS (W/IN LIMITS); Source- Body Fluid THORACENTESIS
[2018-07-11 14:13] LABS: Appearance/Body Fluid CLEAR; Color/Body Fluid LT YEL
[2018-07-11 14:14] LABS: Lymphocytes 18 %; Monocytes 18 %; Neutrophil (Segs) 64 %
[2018-07-11 14:15] LABS: Body Fluid QC Type(s) BF1
[2018-07-11 14:39] LABS: Red Cell Count/Body Fluid 30 /mm3
--- NOTE | 2018-07-11 15:00 | CASEMGMT ---
GAUTAM received a call from patient's sister. GAUTAM let her know due to unforeseen circumstances [facility] is not taking patient's this week. GAUTAM explained they will need to choose a different facility. She said she will speak with patient's son and they will get back to GAUTAM.
--- NOTE | 2018-07-11 15:23 | NURSING ---
wound photo: right back
--- NOTE | 2018-07-11 15:24 | NURSING ---
wound photo: sacrum
--- NOTE | 2018-07-11 16:00 | CASEMGMT ---
Patient's son came to [facility] and asked to talk with GAUTAM. SW spoke with him and let him know about TCU. He asked SW to send a referral to [facility]. GAUTAM called [facility] and spoke with Denice regarding referral. GAUTAM also faxed referral. Kavay RADER
[2018-07-11] MEDS: Insulin Lispro 100 UNIT/ML INSULN.PEN SQ ×2 (16:19→22:42)
[2018-07-11 16:26] LABS: Bedside Glucose 213 mg/dL (70-110)
--- NOTE | 2018-07-11 16:43 | CASEMGMT ---
GAUTAM received a call from Mary Kay Castro at [facility] and they can accept patient. GAUTAM will let patient and family know tomorrow. Plan: [facility] when ready. Kavya RADER
[2018-07-11 22:50] LABS: Bedside Glucose 378 mg/dL (70-110)
[2018-07-12] VITALS (28 sets, daily range): BP systolic 76–106; BP diastolic 47–69; PULSE 16–109; RESP 16–89; TEMP 36.1–36.9; O2SAT 92–99
[2018-07-12 05:48] LABS: Absolute Lymphocyte Count 0.77 X10^3/ul (0.83-4.51); Absolute Neutrophil Count 7.8 X10^3/uL (2.0-7.7); Basophil# 0.06 X10^3/uL; Basophil% 0.6 % (0-1); Eosinophil# 0.06 X10^3/uL; Eosinophils% 0.6 % (0-5); Hematocrit 37.3 % (37-47); Hemoglobin 11.3 g/dl (12.0-15.0); Lymphocyte # 0.77 X10^3/ul (4.0); Lymphocyte % 8.2 % (19-41); Mean Corp Hgb Conc 30.3 g/gl (32-36); Mean Corpuscular Volume 98.9 fL (81-99); Mean Platelet Vol. 10.8 fl (6.2-12.0); Monocyte% 6.4 % (0-10); Neutrophil # 7.82 X10^3/uL (2.7-7.7); Neutrophil % 83.7 % (47-70); Platelet Count 118 K/mm3 (150-450); RBC Distribution Width CV 17.7 % (11.6-14.6); RBC Distribution Width SD 62.3 fl (35.1-43.9); Red Blood Count 3.77 M/mm3 (4.2-5.4); White Blood Count 9.4 K/mm3 (4.4-11.0)
[2018-07-12 05:54] LABS: POSITIVE COUNT NO; POSITIVE DIFFERENTIAL NO; POSITIVE MORPHOLOGY NO
[2018-07-12 06:14] LABS: Anion Gap 10 (5-15); BUN 21 mg/dL (7-18); BUN/Creat Ratio 11.4 RATIO (10-20); Calcium,Total 7.2 mg/dL (8.5-10.1); Chloride 103 mmol/L (98-107); Creatinine, Serum 1.85 mg/dL (0.55-1.02); EST Glomerular Filtration Rate 28 mL/min (>60); Est Glom Filt Rate - Afr Amer 34 mL/min (>60); Estimated Creatinine Clearance 19.16 ml/min; Glucose 209 mg/dL (74-106); Potassium 3.8 mmol/L (3.5-5.1); Sodium Level 141 mmol/L (136-145)
[2018-07-12 07:05] LABS: Bedside Glucose 212 mg/dL (70-110)
--- NOTE | 2018-07-12 07:25 | PN_ITS ---
Patient Problems: Active and Suspected Problems UTI (urinary tract infection) (Acute) CHF (congestive heart failure) (Acute) Subjective: The patient was seen and examined at the bedside this morning. Events from the last 24 hours have been reviewed. The patient is currently afebrile, hemodynamically stable and maintaining appropriate oxygen saturations on 3 L/min via nasal cannula. The patient underwent successful ultrasound-guided thoracentesis yesterday, with 1.4 L of fluid removed from her right hemithorax. Pleural fluid analysis was consistent with the presence of a transudate. Attempts at diuresis have been limited by a rising creatinine. Objective: The patient's most recent lab work, culture data and imaging studies have all been personally reviewed. Surface echocardiogram dated July 06 revealed normal LV size and function with an ejection fraction of 65%. Right ventricular systolic pressure was estimated to be 47 mmHg. - Physical Exam General: Alert, Cooperative HEENT: Atraumatic, Normocephalic Oral: No Gingival or Mucosal Lesions/ Ulcerations Neck: Supple, No Nodes, Trachea Midline Lungs: Diminished, - - Somewhat improved aeration of the right hemithorax. However, there continues to be poor patient dependent inspiratory effort. Cardiovascular: Regular rate, Regular Rhythm, Normal S1, Normal S2 Abdomen: Bowel Sounds Present, Soft, Non Tender Extremities: No clubbing, No cyanosis, No edema Skin: No breakdown Musculoskeletal: No Tenderness to Palpation of Joints or Extremities Lymphatic: No Cervical, Supraclavicular, or Inguinal Adenopathy Neurological: Neuro grossly intact Psych/Mental Status: Normal Affect, Appropriate Vital Signs Temp Pulse Resp BP Pulse Ox 36.4 C L 105 H 16 106/68 99 07/12/18 02:30 07/12/18 03:05 07/12/18 02:30 07/12/18 02:30 07/12/18 02:30 Oxygen Flow Rate (L/min) [3] 5 Oxygen Flow Rate (L/min) [2] 5 Oxygen Flow Rate (L/min) [1 ( 5 Initial Baseline)] Oxygen Flow Rate (L/min) 3 Oxygen Delivery Method [3] Nasal Cannula Oxygen Delivery Method [2] Nasal Cannula Oxygen Delivery Method [1 ( Nasal Cannula Initial Baseline)] Oxygen Delivery Method Nasal Cannula Weight: 119 lb 4.321 oz Body Mass Index (BMI) 24.0 Intake and Output for Last 24 Hours 07/10/18 07/11/18 07/12/18 23:59 23:59 23:59 Intake Total 1220 / 1220 885 / 885 Output Total 590 / 590 1025 / 1025 Balance 630 / 630 -140 / -140 Laboratory Tests Past 24 Hrs 07/11/18 07/11/18 07/11/18 07:05 07:05 07:05 WBC 8.4 RBC 3.45 L Hgb 10.3 L Hct 33.0 L MCV 95.7 MCH 29.9 MCHC 31.2 L RDW 17.8 H RDW Differential 61.5 H Plt Count 119 L MPV 9.5 Immature Gran % (Auto) 0.500 Neut % (Auto) 82.7 H Lymph % (Auto) 8.6 L [place] % (Auto) 6.6 Eos % (Auto) 1.1 Baso % (Auto) 0.5 Absolute Neuts (auto) 6.9 Absolute Lymphs (auto) 0.72 L Total Counted Not Reportable PT INR APTT Sodium 140 Potassium 3.3 L Chloride 101 Carbon Dioxide 31.0 Anion Gap 8 BUN 15 Creatinine 1.48 H Estim Creat Clear Calc 23.95 Est GFR (MDRD) Af Amer 44 L Est GFR (MDRD) Non-Af 37 L BUN/Creatinine Ratio 10.1 Glucose 109 H Calcium 7.2 L Lactate Dehydrogenase 427 H Total Protein 5.8 L Globulin 3.8 Albumin/Globulin Ratio 0.5 L Fluid Source Fluid Color Fluid Appearance Fluid WBC Fluid RBC Fluid Tot Cell Count Fld Polynuclear WBCs # Fld Polynuclear WBCs % Fluid Mononuclear WBCs Fld Mononuclear WBCs % Fluid Neutrophils Fluid Lymphocytes Fluid Monocytes Fl Pathologist Comment Fluid Glucose Fluid Total Protein Fluid LDH Fluid Comment 2 Miscellaneous Cytology 07/11/18 07/11/18 07/11/18 08:58 11:15 11:30 WBC RBC Hgb Hct MCV MCH MCHC RDW RDW Differential Plt Count MPV Immature Gran % (Auto) Neut % (Auto) Lymph % (Auto) [place] % (Auto) Eos % (Auto) Baso % (Auto) Absolute Neuts (auto) Absolute Lymphs (auto) Total Counted PT 13.7 INR 1.1 APTT 28.1 Sodium Potassium Chloride Carbon Dioxide Anion Gap BUN Creatinine Estim Creat Clear Calc Est GFR (MDRD) Af Amer Est GFR (MDRD) Non-Af BUN/Creatinine Ratio Glucose Calcium Lactate Dehydrogenase Total Protein Globulin Albumin/Globulin Ratio Fluid Source Fluid Color Fluid Appearance Fluid WBC Fluid RBC Fluid Tot Cell Count Fld Polynuclear WBCs # Fld Polynuclear WBCs % Fluid Mononuclear WBCs Fld Mononuclear WBCs % Fluid Neutrophils Fluid Lymphocytes Fluid Monocytes Fl Pathologist Comment Fluid Glucose Cancelled 207 H Fluid Total Protein Cancelled 0.7 Fluid LDH Cancelled 47 Fluid Comment 2 Miscellaneous Cytology 07/11/18 07/11/18 07/12/18 11:30 11:30 05:20 WBC 9.4 RBC 3.77 L Hgb 11.3 L Hct 37.3 MCV 98.9 MCH 30.0 MCHC 30.3 L RDW 17.7 H RDW Differential 62.3 H Plt Count 118 L MPV 10.8 Immature Gran % (Auto) 0.500 Neut % (Auto) 83.7 H Lymph % (Auto) 8.2 L [place] % (Auto) 6.4 Eos % (Auto) 0.6 Baso % (Auto) 0.6 Absolute Neuts (auto) 7.8 H Absolute Lymphs (auto) 0.77 L Total Counted Not Reportable PT INR APTT Sodium Potassium Chloride Carbon Dioxide Anion Gap BUN Creatinine Estim Creat Clear Calc Est GFR (MDRD) Af Amer Est GFR (MDRD) Non-Af BUN/Creatinine Ratio Glucose Calcium Lactate Dehydrogenase Total Protein Globulin Albumin/Globulin Ratio Fluid Source THORACENTESIS Fluid Color LT YEL Fluid Appearance CLEAR Fluid WBC 0.049 Fluid RBC 30 Fluid Tot Cell Count 0.056 H Fld Polynuclear WBCs # 0.026 Fld Polynuclear WBCs % 53.1 Fluid Mononuclear WBCs 0.023 Fld Mononuclear WBCs % 46.9 Fluid Neutrophils 64 Fluid Lymphocytes 18 Fluid Monocytes 18 Fl Pathologist Comment May follow Fluid Glucose Fluid Total Protein Fluid LDH Fluid Comment 2 SEE COMMENT Miscellaneous Cytology Pending 07/12/18 05:20 WBC RBC Hgb Hct MCV MCH MCHC RDW RDW Differential Plt Count MPV Immature Gran % (Auto) Neut % (Auto) Lymph % (Auto) [place] % (Auto) Eos % (Auto) Baso % (Auto) Absolute Neuts (auto) Absolute Lymphs (auto) Total Counted PT INR APTT Sodium 141 Potassium 3.8 Chloride 103 Carbon Dioxide 28.0 Anion Gap 10 BUN 21 H Creatinine 1.85 H Estim Creat Clear Calc 19.16 Est GFR (MDRD) Af Amer 34 L Est GFR (MDRD) Non-Af 28 L BUN/Creatinine Ratio 11.4 Glucose 209 H Calcium 7.2 L Lactate Dehydrogenase Total Protein Globulin Albumin/Globulin Ratio Fluid Source Fluid Color Fluid Appearance Fluid WBC Fluid RBC Fluid Tot Cell Count Fld Polynuclear WBCs # Fld Polynuclear WBCs % Fluid Mononuclear WBCs Fld Mononuclear WBCs % Fluid Neutrophils Fluid Lymphocytes Fluid Monocytes Fl Pathologist Comment Fluid Glucose Fluid Total Protein Fluid LDH Fluid Comment 2 Miscellaneous Cytology POC Glucose 07/12/18 07/11/18 07/11/18 06:46 22:38 16:16 POC Glucose 212 H 378 H 213 H 07/11/18 12:11 POC Glucose 124 H Clinical Impression(s) from Imaging Studies Chest X-Ray 07/04/18 09:37 IMPRESSION: Bilateral pleural effusion more on the right side underlying infiltrate cannot be excluded Electronically Signed: Guerrero Ochoa, at 10:44 EST Tel , Service support , Chest X-Ray 07/06/18 13:15 IMPRESSION: Large bilateral effusions atelectasis persistent since prior study pacemaker status post sternotomy. Electronically Signed: Susan Murphy MD at 18:16 EST Tel , Service support , Chest X-Ray 07/09/18 11:20 IMPRESSION: Stable bilateral pleural effusions with bibasilar atelectasis and/or infiltrate and CHF. Electronically Signed: David Santamaria MD at 13:04 EST Tel [phone], Service support , Thoracentesis Ultrasound 07/11/18 08:00 IMPRESSION: Ultrasound-guided right thoracentesis. Electronically Signed: David Santamaria MD at 12:55 EST Tel [phone], Service support , Chest X-Ray 07/11/18 11:47 IMPRESSION: Status post thoracotomy with markedly decreased right pleural effusion and no pneumothorax detected. Residual airspace disease with atelectasis and minimal residual effusion in the right base. Stable cardiac enlargement, presumed left pleural effusion and airspace disease, postsurgical changes. Electronically Signed: Ronda Portillo MD at 12:08 EST , Service support , Medical Necessity - Tobacco Use Smoking Status: Former smoker Tobacco Use: Cigarettes Assessment/Plan All Active Problems UTI (urinary tract infection) (Acute) CHF (congestive heart failure) (Acute) RECOMMENDATIONS: 1. Hold Lasix given rising creatinine. 2. May need to consider left-sided therapeutic thoracentesis to further alleviate patient's symptoms. 3. Obtain daily weights. 4. Continue to wean supplemental oxygen as tolerated. 5. Encourage aggressive incentive spirometer use IMPRESSIONS: 1. Acute hypoxic respiratory failure secondary to decompensated heart failure/bilateral pleural effusions The patient supplemental oxygen requirement has improved status post right-sided thoracentesis. Attempts at volume optimization with diuretics have been unsuccessful to date. In addition, the patient's creatinine has risen. Therefore, to facilitate further symptom improvement, may need to consider th oracentesis of the patient's left hemithorax. Continue to wean supplemental oxygen. Encourage aggressive incentive spirometer use. 2. Atrial fibrillation/coronary artery disease status post CABG/valvular heart disease Continue current medical management per cardiology recommendations. 3. Advanced age and deconditioning/diabetes/GERD Complicates care, management, recovery and prognosis. Okay to continue home medications from my perspective. This note was generated with [employer] dictation software. It may contain incorrect words, spelling, and punctuation that were not noted in checking the note before signing. Code Visit Inpatient E&M: 54300 [facility] Hosp L2
[2018-07-12] MEDS: Ipratropium/Albuterol Sulfate 3 ML AMPUL.NEB INHALATION ×4 (07:36→19:12)
[2018-07-12] MEDS: Insulin Lispro 100 UNIT/ML INSULN.PEN SQ ×3 (09:32→21:10)
[2018-07-12] MEDS: Metoprolol Tartrate 100 MG Tablet PO (09:33)
[2018-07-12] MEDS: Pantoprazole Sodium 20 MG Tablet PO (09:33)
--- NOTE | 2018-07-12 09:48 | PN.CARD_ITS ---
Subjectve: Feels better today. Objective: Vital Signs Temp Pulse Resp BP Pulse Ox 97.6 F L 109 H 18 84/61 L 96 07/12/18 09:30 07/12/18 09:33 07/12/18 09:30 07/12/18 09:33 07/12/18 09:30 Oxygen Flow Rate (L/min) [3] 5 Oxygen Flow Rate (L/min) [2] 5 Oxygen Flow Rate (L/min) [1 ( 5 Initial Baseline)] Oxygen Flow Rate (L/min) 3 Oxygen Delivery Method [3] Nasal Cannula Oxygen Delivery Method [2] Nasal Cannula Oxygen Delivery Method [1 ( Nasal Cannula Initial Baseline)] Oxygen Delivery Method Nasal Cannula Weight: 54.1 kg Body Mass Index (BMI) 24.0 Intake and Output for Last 24 Hours 07/10/18 07/11/18 07/12/18 23:59 23:59 23:59 Intake Total 1220 / 1220 885 / 885 0 / 0 Output Total 590 / 590 1025 / 1025 50 / 50 Balance 630 / 630 -140 / -140 -50 / -50 Looks better today On NC. VS: Stable. General: Awake, Alert, Oriented x 3, No Acute Distress Neck: No JVD Lungs: Diminished Right Base, Diminished Left Base Cardiovascular: Regular Rhythm Murmur Murmur: Grade 2/6, Grade 3/6, Soft, Holosystolic, [place] Abdomen: Soft Extremities: No edema 07/12/18 05:20: WBC 9.4, RBC 3.77 L, Hgb 11.3 L, Hct 37.3, MCV 98.9, MCH 30.0, MCHC 30.3 L, RDW 17.7 H, RDW Differential 62.3 H, Plt Count 118 L, MPV 10.8, Immature Gran % (Auto) 0.500, Neut % (Auto) 83.7 H, Lymph % (Auto) 8.2 L, [place] % (Auto) 6.4, Eos % (Auto) 0.6, Baso % (Auto) 0.6, Absolute Neuts (auto) 7.8 H, Total Counted Not Reportable 07/12/18 05:20: Sodium 141, Potassium 3.8, Chloride 103, Carbon Dioxide 28.0, Anion Gap 10, BUN 21 H, Creatinine 1.85 H, Est GFR (MDRD) Af Amer 34 L, Est GFR (MDRD) Non-Af 28 L, BUN/Creatinine Ratio 11.4, Glucose 209 H, Calcium 7.2 L Rhythm: EKG: ECHO: Stress Test: Cardiac Cath: PCI: CT Surgery: Holter monitor: EPS: PPM: CXR: Chest CT Scan: Medical Necessity - Tobacco Use Smoking Status: Former smoker Tobacco Use: Cigarettes Assessment/Plan Acutely decompensated chronic CHF, Preserved EF, class 2-3. Improving. Minimally elevated Trop., Type 2 [place]. Normally functioning Permanent pacer, DDD. Mild to moderate mitral stenosis, partially opening prosthetic valve, followed up at [facility], although the family wishes not to return there again. Suggest continuing mild diuresis, optimizing medications. S/P R thoracentesis, 1.4 L of transudate.Sepsis, being addressed by the attending. Continue with CHF optimization. Meds were stopped when she presented with Sepsis syndrome and hypotension. Will FU as needed. Thanks
--- NOTE | 2018-07-12 10:57 | PCM.PN.HOSP ---
Patient Problems: Active and Suspected Problems UTI (urinary tract infection) (Acute) CHF (congestive heart failure) (Acute) Subjective: Patient seen and examined. She feels better and is down to 3L today. She denies any fever, chills, palpitations, chest pain, abdominal pain, diarrhea or vomiting. She had thoracentesis yesterday with drainage of 1.4 L of fluid from the right pleural space. Analysis of pleural fluid consistent with a transudate. Cr has trended up to 1.85 today. Urine output was 1.025L overnight. Vitals/I&O's: Vital Signs Temp Pulse Resp BP Pulse Ox 97.6 F L 109 H 18 84/61 L 96 07/12/18 09:30 07/12/18 09:33 07/12/18 09:30 07/12/18 09:33 07/12/18 09:30 Oxygen Flow Rate (L/min) [3] 5 Oxygen Flow Rate (L/min) [2] 5 Oxygen Flow Rate (L/min) [1 ( 5 Initial Baseline)] Oxygen Flow Rate (L/min) 3 Oxygen Delivery Method [3] Nasal Cannula Oxygen Delivery Method [2] Nasal Cannula Oxygen Delivery Method [1 ( Nasal Cannula Initial Baseline)] Oxygen Delivery Method Nasal Cannula Weight: 119 lb 4.321 oz Body Mass Index (BMI) 24.0 Intake and Output for Last 24 Hours 07/10/18 07/11/18 07/12/18 23:59 23:59 23:59 Intake Total 1220 / 1220 885 / 885 0 / 0 Output Total 590 / 590 1025 / 1025 50 / 50 Balance 630 / 630 -140 / -140 -50 / -50 General: Alert, Oriented x3, Cooperative, No apparent distress HEENT: Atraumatic, PERRLA, EOMI, Normocephalic Oral: Moist Mucosa Neck: Supple, No JVD, Negative Carotid Bruits Lungs: - - still has decreased breath sounds bibasally; no wheezing or crackles Cardiovascular: Regular rate, Regular Rhythm, Normal S1, Normal S2, No murmurs Abdomen: Bowel Sounds Present, Soft, Non Tender, Non-Distended, No Hepato-splenomegaly Extremities: No clubbing, No cyanosis, No edema, Capillary Refill Less than 3 Seconds Skin: No rashes, No breakdown Musculoskeletal: No Tenderness to Palpation of Joints or Extremities Lymphatic: No Cervical, Supraclavicular, or Inguinal Adenopathy Neurological: Cranial nerves II-XII grossly intact Psych/Mental Status: Normal Affect, Appropriate, Alert and oriented to time, place, person, mood and affect Laboratory Results 07/11/18 11:15: Fluid Glucose Cancelled, Fluid Total Protein Cancelled, Fluid LDH Cancelled 07/11/18 11:30: Fluid Glucose 207 H, Fluid Total Protein 0.7, Fluid LDH 47 07/11/18 11:30: Fluid Source THORACENTESIS, Fluid Color LT YEL, Fluid Appearance CLEAR, Fluid WBC 0.049, Fluid RBC 30, Fluid Tot Cell Count 0.056 H, Fld Polynuclear WBCs # 0.026, Fld Polynuclear WBCs % 53.1, Fluid Mononuclear WBCs 0.023, Fld Mononuclear WBCs % 46.9, Fluid Neutrophils 64, Fluid Lymphocytes 18, Fluid Monocytes 18, Fl Pathologist Comment May follow, Fluid Comment 2 SEE COMMENT 07/11/18 11:30: Miscellaneous Cytology Pending 07/11/18 12:11: POC Glucose 124 H 07/11/18 16:16: POC Glucose 213 H 07/11/18 22:38: POC Glucose 378 H 07/12/18 05:20: WBC 9.4, RBC 3.77 L, Hgb 11.3 L, Hct 37.3, MCV 98.9, MCH 30.0, MCHC 30.3 L, RDW 17.7 H, RDW Differential 62.3 H, Plt Count 118 L, MPV 10.8, Immature Gran % (Auto) 0.500, Neut % (Auto) 83.7 H, Lymph % (Auto) 8.2 L, Mchenry % (Auto) 6.4, Eos % (Auto) 0.6, Baso % (Auto) 0.6, Absolute Neuts (auto) 7.8 H, Absolute Lymphs (auto) 0.77 L, Total Counted Not Reportable 07/12/18 05:20: Sodium 141, Potassium 3.8, Chloride 103, Carbon Dioxide 28.0, Anion Gap 10, BUN 21 H, Creatinine 1.85 H, Estim Creat Clear Calc 19.16, Est GFR (MDRD) Af Amer 34 L, Est GFR (MDRD) Non-Af 28 L, BUN/Creatinine Ratio 11.4, Glucose 209 H, Calcium 7.2 L 07/12/18 06:46: POC Glucose 212 H Diagnostic Data Thoracentesis Ultrasound 07/11/18 08:00 IMPRESSION: Ultrasound-guided right thoracentesis. Electronically Signed: David Santamaria MD at 12:55 EST Tel [phone], Service support , Chest X-Ray 07/11/18 11:47 IMPRESSION: Status post thoracotomy with markedly decreased right pleural effusion and no pneumothorax detected. Residual airspace disease with atelectasis and minimal residual effusion in the right base. Stable cardiac enlargement, presumed left pleural effusion and airspace disease, postsurgical changes. Electronically Signed: Ronda Portillo MD at 12:08 EST , Service support , Current Medications Acetaminophen (Tylenol) 650 mg PO Q4H PRN PRN PRN Reason: pain/fever Albuterol/Ipratropium (Duoneb) 3 ml INHALATION Q4HWA.RT [facility] Last Admin: 07/12/18 07:36 Dose: 3 ml Atorvastatin Calcium (Lipitor) 40 mg PO QHS [facility] Last Admin: 07/11/18 22:42 Dose: Not Given Dextrose (D50w Syringe) 0 gm IV X1 PRN; Protocol PRN Reason: Hypoglycemia Furosemide (Lasix) 40 mg IV DAILY [facility] Glucagon () 1 mg IM .X1 PRN PRN Reason: Hypoglycemia Sodium Chloride () 250 mls @ 15 mls/hr IV .[id number] PRN PRN Reason: SALINE FLUSH Last Admin: 07/05/18 15:30 Dose: 15 mls/hr Sodium Chloride () 250 mls @ 15 mls/hr IV .[id number] PRN PRN Reason: SALINE FLUSH Insulin Human Lispro (Humalog Kwikpen (Bkc)) 0 unit SQ ACHS [facility]; Protocol Last Admin: 07/12/18 09:32 Dose: 2 units Lisinopril (Zestril) 5 mg PO DAILY [facility] Last Admin: 07/12/18 09:33 Dose: Not Given Magnesium Hydroxide (Milk Of Magnesia) 30 ml PO DAILY PRN PRN Reason: Constipation Metolazone (Zaroxolyn) 5 mg PO DAILY [facility] Last Admin: 07/12/18 09:32 Dose: Not Given Metoprolol Tartrate (Lopressor (Beta Tiarra)) 100 mg PO BID [facility] Last Admin: 07/12/18 09:33 Dose: 100 mg Pantoprazole Sodium (Protonix) 20 mg PO DAILY [facility] Last Admin: 07/12/18 09:33 Dose: 20 mg Sodium Chloride () 5 - 15 ml IV UD PRN PRN Reason: SALINE FLUSH Last Admin: 07/11/18 10:42 Dose: 10 ml Medical Necessity - Tobacco Use Smoking Status: Former smoker Tobacco Use: Cigarettes Assessment/Plan All Active Problems UTI (urinary tract infection) (Acute) CHF (congestive heart failure) (Acute) 1. Acute hypoxic respiratory failure due to diastolic CHF exacerbation and bilateral pleural effusion is s/p thoracentesis wtih drainage of 1.4L of fluid from the right lung yesterday down to 3L of oxygen now fluid analysis showed transudate urine output over last 24 hours was 1.025L will hold metolaxone o/a of hypotension, with BP dropping to 80s systolic. Will also reduce lasix to 40mg daily. pulmo and cardiology on board to have left sided therapeutic thoracentesis today 2. Afib: Heart rate has remained around 108 will resume eliquis today on metoprolol 100mg bid. 3. Diabetes mellitus: on ISS. Accuchecks ACHS 4. GERD; on PPI 5. UTI: completed 5 days of oral ciprofloxacin 6. NATI: Cr trended up to 1.85 today. This is likely due to hypotension and also from lasix. Will decrease lasix to 40mg daily and monitor. 7. HypoKalemia: resolved. K is 3.8 today. 8. CAD s/p CABG: on statin and metoprolol 9. Thrombocytopenia: platelet count is 118 today. Asymptomatic. Will monitor DVT prophylaxis: SCDs; to resume eliquis after she gets thoracentesis Disposition: awaiting placement in SNF. Code Visit Inpatient E&M: 88042 [facility] Hosp L3
--- NOTE | 2018-07-12 11:02 | PN_ITS ---
Patient Problems: Active and Suspected Problems UTI (urinary tract infection) (Acute) CHF (congestive heart failure) (Acute) Subjective: Patient seen and examined. She feels better and is down to 3L today. She denies any fever, chills, palpitations, chest pain, abdominal pain, diarrhea or vomiting. She had thoracentesis yesterday with drainage of 1.4 L of fluid from the right pleural space. Analysis of pleural fluid consistent with a transudate. Cr has trended up to 1.85 today. Urine output was 1.025L overnight. Vitals/I&O's: Vital Signs Temp Pulse Resp BP Pulse Ox 97.6 F L 109 H 18 84/61 L 96 07/12/18 09:30 07/12/18 09:33 07/12/18 09:30 07/12/18 09:33 07/12/18 09:30 Oxygen Flow Rate (L/min) [3] 5 Oxygen Flow Rate (L/min) [2] 5 Oxygen Flow Rate (L/min) [1 ( 5 Initial Baseline)] Oxygen Flow Rate (L/min) 3 Oxygen Delivery Method [3] Nasal Cannula Oxygen Delivery Method [2] Nasal Cannula Oxygen Delivery Method [1 ( Nasal Cannula Initial Baseline)] Oxygen Delivery Method Nasal Cannula Weight: 119 lb 4.321 oz Body Mass Index (BMI) 24.0 Intake and Output for Last 24 Hours 07/10/18 07/11/18 07/12/18 23:59 23:59 23:59 Intake Total 1220 / 1220 885 / 885 0 / 0 Output Total 590 / 590 1025 / 1025 50 / 50 Balance 630 / 630 -140 / -140 -50 / -50 General: Alert, Oriented x3, Cooperative, No apparent distress HEENT: Atraumatic, PERRLA, EOMI, Normocephalic Oral: Moist Mucosa Neck: Supple, No JVD, Negative Carotid Bruits Lungs: - - still has decreased breath sounds bibasally; no wheezing or crackles Cardiovascular: Regular rate, Regular Rhythm, Normal S1, Normal S2, No murmurs Abdomen: Bowel Sounds Present, Soft, Non Tender, Non-Distended, No Hepato- splenomegaly Extremities: No clubbing, No cyanosis, No edema, Capillary Refill Less than 3 Seconds Skin: No rashes, No breakdown Musculoskeletal: No Tenderness to Palpation of Joints or Extremities Lymphatic: No Cervical, Supraclavicular, or Inguinal Adenopathy Neurological: Cranial nerves II-XII grossly intact Psych/Mental Status: Normal Affect, Appropriate, Alert and oriented to time, place, person, mood and affect Laboratory Results 07/11/18 11:15: Fluid Glucose Cancelled, Fluid Total Protein Cancelled, Fluid LDH Cancelled 07/11/18 11:30: Fluid Glucose 207 H, Fluid Total Protein 0.7, Fluid LDH 47 07/11/18 11:30: Fluid Source THORACENTESIS, Fluid Color LT YEL, Fluid Appearance CLEAR, Fluid WBC 0.049, Fluid RBC 30, Fluid Tot Cell Count 0.056 H, Fld Polynuclear WBCs # 0.026, Fld Polynuclear WBCs % 53.1, Fluid Mononuclear WBCs 0.023, Fld Mononuclear WBCs % 46.9, Fluid Neutrophils 64, Fluid Lymphocytes 18, Fluid Monocytes 18, Fl Pathologist Comment May follow, Fluid Comment 2 SEE COMMENT 07/11/18 11:30: Miscellaneous Cytology Pending 07/11/18 12:11: POC Glucose 124 H 07/11/18 16:16: POC Glucose 213 H 07/11/18 22:38: POC Glucose 378 H 07/12/18 05:20: WBC 9.4, RBC 3.77 L, Hgb 11.3 L, Hct 37.3, MCV 98.9, MCH 30.0, MCHC 30.3 L, RDW 17.7 H, RDW Differential 62.3 H, Plt Count 118 L, MPV 10.8, Immature Gran % (Auto) 0.500, Neut % (Auto) 83.7 H, Lymph % (Auto) 8.2 L, Dickens % (Auto) 6.4, Eos % (Auto) 0.6, Baso % (Auto) 0.6, Absolute Neuts (auto) 7.8 H, Absolute Lymphs (auto) 0.77 L, Total Counted Not Reportable 07/12/18 05:20: Sodium 141, Potassium 3.8, Chloride 103, Carbon Dioxide 28.0, Anion Gap 10, BUN 21 H, Creatinine 1.85 H, Estim Creat Clear Calc 19.16, Est GFR (MDRD) Af Amer 34 L, Est GFR (MDRD) Non-Af 28 L, BUN/Creatinine Ratio 11.4, Glucose 209 H, Calcium 7.2 L 07/12/18 06:46: POC Glucose 212 H Diagnostic Data Thoracentesis Ultrasound 07/11/18 08:00 IMPRESSION: Ultrasound-guided right thoracentesis. Electronically Signed: David Santamaria MD at 12:55 EST Tel [phone], Service support , Chest X-Ray 07/11/18 11:47 IMPRESSION: Status post thoracotomy with markedly decreased right pleural effusion and no pneumothorax detected. Residual airspace disease with atelectasis and minimal residual effusion in the right base. Stable cardiac enlargement, presumed left pleural effusion and airspace disease, postsurgical changes. Electronically Signed: Ronda Portillo MD at 12:08 EST , Service support , Current Medications Acetaminophen (Tylenol) 650 mg PO Q4H PRN PRN PRN Reason: pain/fever Albuterol/Ipratropium (Duoneb) 3 ml INHALATION Q4HWA.RT [facility] Last Admin: 07/12/18 07:36 Dose: 3 ml Atorvastatin Calcium (Lipitor) 40 mg PO QHS [facility] Last Admin: 07/11/18 22:42 Dose: Not Given Dextrose (D50w Syringe) 0 gm IV X1 PRN; Protocol PRN Reason: Hypoglycemia Furosemide (Lasix) 40 mg IV DAILY [facility] Glucagon () 1 mg IM .X1 PRN PRN Reason: Hypoglycemia Sodium Chloride () 250 mls @ 15 mls/hr IV .[id number] PRN PRN Reason: SALINE FLUSH Last Admin: 07/05/18 15:30 Dose: 15 mls/hr Sodium Chloride () 250 mls @ 15 mls/hr IV .[id number] PRN PRN Reason: SALINE FLUSH Insulin Human Lispro (Humalog Kwikpen (Bkc)) 0 unit SQ ACHS [facility]; Protocol Last Admin: 07/12/18 09:32 Dose: 2 units Lisinopril (Zestril) 5 mg PO DAILY [facility] Last Admin: 07/12/18 09:33 Dose: Not Given Magnesium Hydroxide (Milk Of Magnesia) 30 ml PO DAILY PRN PRN Reason: Constipation Metolazone (Zaroxolyn) 5 mg PO DAILY [facility] Last Admin: 07/12/18 09:32 Dose: Not Given Metoprolol Tartrate (Lopressor (Beta Tiarra)) 100 mg PO BID [facility] Last Admin: 07/12/18 09:33 Dose: 100 mg Pantoprazole Sodium (Protonix) 20 mg PO DAILY [facility] Last Admin: 07/12/18 09:33 Dose: 20 mg Sodium Chloride () 5 - 15 ml IV UD PRN PRN Reason: SALINE FLUSH Last Admin: 07/11/18 10:42 Dose: 10 ml Medical Necessity - Tobacco Use Smoking Status: Former smoker Tobacco Use: Cigarettes Assessment/Plan All Active Problems UTI (urinary tract infection) (Acute) CHF (congestive heart failure) (Acute) 1. Acute hypoxic respiratory failure due to diastolic CHF exacerbation and bilateral pleural effusion * is s/p thoracentesis wtih drainage of 1.4L of fluid from the right lung yesterday * down to 3L of oxygen now * fluid analysis showed transudate * urine output over last 24 hours was 1.025L * will hold metolaxone o/a of hypotension, with BP dropping to 80s systolic. Will also reduce lasix to 40mg daily. * pulmo and cardiology on board * to have left sided therapeutic thoracentesis today 2. Afib: * Heart rate has remained around 108 * will resume eliquis today * on metoprolol 100mg bid. 3. Diabetes mellitus: on ISS. Accuchecks ACHS 4. GERD; on PPI 5. UTI: completed 5 days of oral ciprofloxacin 6. NATI: Cr trended up to 1.85 today. This is likely due to hypotension and also from lasix. Will decrease lasix to 40mg daily and monitor. 7. HypoKalemia: resolved. K is 3.8 today. 8. CAD s/p CABG: on statin and metoprolol 9. Thrombocytopenia: platelet count is 118 today. Asymptomatic. Will monitor DVT prophylaxis: SCDs; to resume eliquis after she gets thoracentesis Disposition: awaiting placement in SNF. Code Visit Inpatient E&M: [id number] [place] [address]
[2018-07-12 11:21] LABS: Bedside Glucose 276 mg/dL (70-110)
--- NOTE | 2018-07-12 11:35 | CASEMGMT ---
GAUTAM spoke with patient's sister letting her know [facility] is able to accept. Again told her no patient's are going to TCU this week due to unforeseen circumstances. GAUTAM told her physician said patient will not be going today, but maybe tomorrow. GAUTAM also called Mary Kay Castro at [facility] and left her a voice mail letting her know this information. Plan: [facility] under skilled level of care. Kavya CARCAMO MSW
--- NOTE | 2018-07-12 11:49 | CASEMGMT ---
SW spoke with patient letting her know the change in plans and she was in agreement. Plan: [facility] under skilled level of care. Kavya CARCAMO MSW
--- NOTE | 2018-07-12 12:41 | US_ITS ---
PROCEDURE: ULTRASOUND GUIDED THORACENTESIS. DATE: July 12, 2018. INDICATION: Female, 72 years old. Left pleural effusion PHYSICIAN: David Santamaria M.D. PROCEDURE: The risks, benefits, and alternatives to the procedure were explained to the left. The specific risks of bleeding, infection, and pneumothorax requiring chest tube insertion were discussed and accepted. Written informed consent was obtained. Ultrasonographic evaluation of the left lower pleural space was carried out. An adequate pocket was identified. The patient was placed in the sitting, upright position. The overlying skin was prepped and draped in sterile fashion. 1% lidocaine was administered subcutaneously for local anesthesia. Under ultrasound guidance, a 5 [place] thoracentesis needle/catheter system was advanced into the left posterior lower pleural fluid collection. Approximately 750 mL of paula-colored fluid was drained. The catheter was removed, and a sterile dressing was applied. The patient tolerated the procedure well. A chest x-ray was ordered. US/Thoracentesis W US IMPRESSION: Ultrasound-guided left thoracentesis. Electronically Signed: David Santamaria MD at 13:35 EST Tel [phone], Service support ,
[2018-07-12 13:05] LABS: Pathologist Comment/Body Fluid Reviewed
--- NOTE | 2018-07-12 13:18 | RAD_ITS ---
STUDY: X-RAY CHEST REASON FOR EXAM: Female, 72 years old. The patient is status post left thoracentesis. TECHNIQUE: AP inspiration and expiration views appear COMPARISON: Comparison is made with prior study dated July 11, 2018. FINDINGS: The patient is status post left thoracentesis. There is no evidence of pneumothorax. Mild residual pleural-parenchymal changes persist at the left lung base. There is evidence of a small right pleural effusion with underlying infiltration and/or atelectasis. RAD/Chest Insp/Exp 2 View IMPRESSION: Status post left thoracentesis. There is no evidence of pneumothorax. Electronically Signed: David Santamaria MD at 8:05 EST Tel [phone], Service support ,
[2018-07-12 16:55] LABS: Bedside Glucose 113 mg/dL (70-110)
[2018-07-12] MEDS: Atorvastatin Calcium 40 MG Tablet PO (21:10)
[2018-07-12 21:40] LABS: Bedside Glucose 289 mg/dL (70-110)
[2018-07-13] VITALS (14 sets, daily range): BP systolic 83–100; BP diastolic 53–65; PULSE 88–112; RESP 14–20; TEMP 36.1–36.6; O2SAT 95–98
[2018-07-13 06:38] LABS: Anion Gap 8 (5-15); BUN 22 mg/dL (7-18); BUN/Creat Ratio 12.4 RATIO (10-20); Chloride 104 mmol/L (98-107); Creatinine, Serum 1.78 mg/dL (0.55-1.02); EST Glomerular Filtration Rate 30 mL/min (>60); Est Glom Filt Rate - Afr Amer 36 mL/min (>60); Estimated Creatinine Clearance 19.92 ml/min; Glucose 176 mg/dL (74-106); Potassium 3.6 mmol/L (3.5-5.1); Sodium Level 140 mmol/L (136-145)
[2018-07-13 06:50] LABS: Bedside Glucose 174 mg/dL (70-110)
[2018-07-13] MEDS: Ipratropium/Albuterol Sulfate 3 ML AMPUL.NEB INHALATION ×2 (07:04→10:44)
--- NOTE | 2018-07-13 07:47 | PN_ITS ---
Patient Problems: Active and Suspected Problems UTI (urinary tract infection) (Acute) CHF (congestive heart failure) (Acute) Subjective: The patient was seen and examined at the bedside this morning. Events from the last 24 hours have been reviewed. The patient is currently afebrile, hemodynamically stable and maintaining appropriate oxygen saturations on 3 L/min via nasal cannula. The patient did undergo an ultrasound-guided thoracentesis yesterday of her left hemithorax, with 750 mL's of fluid removed. Breathing quality is improved accordingly. Objective: The patient's most recent lab work, culture data and imaging studies have all been personally reviewed. Surface echocardiogram dated July 06 revealed normal LV size and function with an ejection fraction of 65%. Right ventricular systolic pressure was estimated to be 47 mmHg. - Physical Exam General: Alert, Cooperative, No apparent distress HEENT: Atraumatic, Normocephalic Oral: No Gingival or Mucosal Lesions/ Ulcerations Neck: Supple, No Nodes Lungs: No rhonchi, No wheeze, No rales, Diminished Cardiovascular: Regular rate, Regular Rhythm, Normal S1, Normal S2, No murmurs Abdomen: Bowel Sounds Present, Soft, Non Tender Extremities: No clubbing, No cyanosis, No edema Skin: No breakdown Musculoskeletal: No Tenderness to Palpation of Joints or Extremities Lymphatic: No Cervical, Supraclavicular, or Inguinal Adenopathy Neurological: Neuro grossly intact Psych/Mental Status: Normal Affect, Appropriate Vital Signs Temp Pulse Resp BP Pulse Ox 36.1 C L 107 H 14 97/65 96 07/13/18 06:49 07/13/18 06:55 07/13/18 06:49 07/13/18 06:49 07/13/18 06:49 Oxygen Flow Rate (L/min) [3] 5 Oxygen Flow Rate (L/min) [2] 5 Oxygen Flow Rate (L/min) [1 ( 3 Initial Baseline)] Oxygen Flow Rate (L/min) 3 Oxygen Delivery Method [3] Nasal Cannula Oxygen Delivery Method [2] Nasal Cannula Oxygen Delivery Method [1 ( Nasal Cannula Initial Baseline)] Oxygen Delivery Method Nasal Cannula Weight: 119 lb 4.321 oz Body Mass Index (BMI) 24.0 Intake and Output for Last 24 Hours 07/11/18 07/12/18 07/13/18 23:59 23:59 23:59 Intake Total 885 / 885 1420 / 1420 310 / 310 Output Total 2445 / 2445 975 / 975 25 / Balance -1560 / -1560 445 / 445 285 / 285 Laboratory Tests Past 24 Hrs 07/11/18 07/11/18 07/13/18 11:30 11:30 06:15 Sodium 140 Potassium 3.6 Chloride 104 Carbon Dioxide 28.0 Anion Gap 8 BUN 22 H Creatinine 1.78 H Estim Creat Clear Calc 19.92 Est GFR (MDRD) Af Amer 36 L Est GFR (MDRD) Non-Af 30 L BUN/Creatinine Ratio 12.4 Glucose 176 H Calcium 7.0 L Fl Pathologist Comment Reviewed Miscellaneous Cytology SEE PATHOLOGY REPORT POC Glucose 07/13/18 07/12/18 07/12/18 06:45 21:09 16:51 POC Glucose 174 H 289 H 113 H 07/12/18 11:11 POC Glucose 276 H Clinical Impression(s) from Imaging Studies Chest X-Ray 07/04/18 09:37 IMPRESSION: Bilateral pleural effusion more on the right side underlying infiltrate cannot be excluded Electronically Signed: Guerrero Ochoa, at 10:44 EST Tel , Service support , Chest X-Ray 07/06/18 13:15 IMPRESSION: Large bilateral effusions atelectasis persistent since prior study pacemaker status post sternotomy. Electronically Signed: Susan Murphy MD at 18:16 EST Tel , Service support , Chest X-Ray 07/09/18 11:20 IMPRESSION: Stable bilateral pleural effusions with bibasilar atelectasis and/or infiltrate and CHF. Electronically Signed: David Santamaria MD at 13:04 EST Tel [phone], Service support , Thoracentesis Ultrasound 07/11/18 08:00 IMPRESSION: Ultrasound-guided right thoracentesis. Electronically Signed: David Santamaria MD at 12:55 EST Tel [phone], Service support , Chest X-Ray 07/11/18 11:47 IMPRESSION: Status post thoracotomy with markedly decreased right pleural effusion and no pneumothorax detected. Residual airspace disease with atelectasis and minimal residual effusion in the right base. Stable cardiac enlargement, presumed left pleural effusion and airspace disease, postsurgical changes. Electronically Signed: Ronda Portillo MD at 12:08 EST , Service support , Thoracentesis Ultrasound 07/12/18 12:41 IMPRESSION: Ultrasound-guided left thoracentesis. Electronically Signed: David Santamaria MD at 13:35 EST Tel [phone], Service support , Medical Necessity - Tobacco Use Smoking Status: Former smoker Tobacco Use: Cigarettes Assessment/Plan All Active Problems UTI (urinary tract infection) (Acute) CHF (congestive heart failure) (Acute) RECOMMENDATIONS: 1. Continue to wean supplemental oxygen as tolerated. 2. Continue medical optimization per cardiology recommendations. 3. Encourage aggressive incentive spirometer use and mobilize patient as tolerated. IMPRESSIONS: 1. Acute hypoxic respiratory failure secondary to decompensated heart failure/bilateral pleural effusions The patient supplemental oxygen requirement has improved status post right and left-sided thoracentesis. Attempts at volume optimization with diuretics was largely unsuccessful due to worsening renal insufficiency. The patient should continue to be medically optimized from a cardiology perspective. Supplemental oxygen can be weaned. Encourage aggressive incentive spirometer use and mobilize patient as tolerated. The patient is to follow-up in the cardiology clinic upon discharge from the hospital. 2. Atrial fibrillation/coronary artery disease status post CABG/valvular heart disease Continue current medical management per cardiology recommendations. 3. Advanced age and deconditioning/diabetes/GERD Complicates care, management, recovery and prognosis. Okay to continue home medications from my perspective. This note was generated with [employer] software. It may contain incorrect words, spelling, and punctuation that were not noted in checking the note before signing. Code Visit Inpatient E&M: 31677 [facility] Hosp L2
[2018-07-13] MEDS: Insulin Lispro 100 UNIT/ML INSULN.PEN SQ (09:14)
[2018-07-13] MEDS: APIXABAN 2.5 MG TABLET PO (09:14)
[2018-07-13] MEDS: Pantoprazole Sodium 20 MG Tablet PO (09:14)
--- NOTE | 2018-07-13 10:06 | TREXTCAR_ITS ---
- Diet 07/05/18 09:53 Diet: Carbohydrate Controlled Food consistency:: Soft Liquid Consistency:: Regular/Thin Dietary Modifications:: Soft Diet Is pt able to select menu?: Yes Diet Comments: Upright (chair if possible) w/ meals, remain upright 30-60 min (GERD) - Routine Orders/Code Status Enema Type: Fleetz Enema Frequency: Daily PRN Suppository Type: Dulcolax 10mg Suppository Frequency: Daily PRN O2 Liters per Minute: 2 O2 Frequency: Continuous Keep PO Greater than or Equal to (%): 92 Routine Lab Work: BMP - in 2 days, then weekly to monitor kidney function - Wound(s) L FA Wound Type: Skin Tear Dressing Change: Adaptic Right post rib Wound Type: Pressure Injury Dressing Change: Mepilex coccyx Wound Type: Pressure Injury Dressing Change: Mepilex Right forearm Wound Type: Skin Tear RT SIDE OF BACK Wound Type: Puncture Dressing Change: Dry Sterile Dressing left back Wound Type: Puncture - Therapies Weight Bearing: Weight bearing as tolerated Physical Therapy: Eval and Treat Occupational Therapy: Eval and Treat - Allergies/Procedures Done in Hospital Allergies/Adverse Reactions: Allergies simvastatin [From Zocor] Allergy (Verified 07/04/18 09:48) Unknown - Type of Care/Length of Stay Estimated LOS: More Than 30 Days Type of Care Needed: Skilled Rehab Potential: Fair Prognosis: Fair - Additional Orders/Day of Discharge Day of Discharge: 07/13/18 - Dietary and Speech Recommendations Dietitian Recommendations/Changes: Consider Rufino 1 packet BID for skin integrity. Rec CHO controlled, cardiac, low sodium diet w/ 1500 cc fluid restriction as indicated- consistency per EBD SPECIAL EDUCATION TEACHER. Pt would benefit from ONS d/t poor PO intake, signs/symptoms of malnutrition, and pressure injuries but is refusing at this time. Will try magic cup w/ meals as tolerated. - Follow Up Care Primary Care Physician: Patsy Cabrera [ALLIED HEALTH PROFESSIONAL] - Please follow up with your Primary Care Physician in: one week Please Follow Up With: Srinivas Montgomery MD When: 1 week Please Follow Up With: John Berger DO When: 1-2 weeks
--- NOTE | 2018-07-13 10:06 | PCM.DC.SUM ---
Discharge Date and Diagnosis - Problem List Patient Problems: Active and Suspected Problems UTI (urinary tract infection) (Acute) CHF (congestive heart failure) (Acute) Date of Admission: 07/04/18 Date of Discharge: 07/13/18 - Primary Discharge Diagnosis Active and Suspected Problems UTI (urinary tract infection) (Acute) CHF (congestive heart failure) (Acute) bilateral pleural effusion - Secondary Discharge Diagnosis Chronic Problems CAD (coronary artery disease) (Chronic) Hospital Course and Treatment Imaging Results: Diagnostic Data Thoracentesis Ultrasound 07/12/18 12:41 IMPRESSION: Ultrasound-guided left thoracentesis. Electronically Signed: David Santamaria MD at 13:35 EST Tel [phone], Service support , Chest X-Ray 07/12/18 13:18 IMPRESSION: Status post left thoracentesis. There is no evidence of pneumothorax. Electronically Signed: David Santamaria MD at 8:05 EST Tel [phone], Service support , 2D echocardiogram Interpretation Summary The study was technically difficult. Left ventricular systolic function is normal. The estimated ejection fraction is 65 %. The left atrium is moderately enlarged. Stabel appearing prosthetic mitral valve apparatus. Moderate mitral valve stenosis. Trivial transvalvular insufficiency of the mitral valve. Moderate (2+) tricuspid valve insufficiency. Mild aortic stenosis. Trivial aortic valve insufficiency. Echolucency c/w a pleural effusion. Right ventricular systolic pressure estimated to be 47 mmHg. Unable to assess diastolic dysfunction. Comment: 2D echocardiographic images demonstrate echocardiograhic findings c/w a prosthetic mitral valve apparatus, as well as, findings potentially c/w mitral annular calcification, calcification of the submitral valve apparatus, and thickening / calcification / partial restriction of the mitral valve leaflets. Consultations 07/04/18 17:29 Consult: Onc/Wound/gas turbine powerplant mechanic helper Routine Comment: cardiology- Dr Domínguez pulmonology-Dr Berger Operations: None Procedures: 2-D Echocardiogram, Thoracentesis Summary of Care Provided: The patient is a 72 year old F with a PMH of congestive heart failure and CAD status post CABG. She was admitted with a complaint of 1 day history of shortness of breath. She was found to be hypoxic requiring BiPAP and chest x-ray showed bilateral pleural effusions. UA also showed evidence of UTI. She was admitted and managed for acute hypoxic respiratory failure due to CHF exacerbation and UTI. BNP on admission was 643. She was diuresed with IV Lasix and switched to nasal oxygen. She was also treated with antibiotics for UTI. Shortness of breath did not improve and patient required increasing amounts of oxygen peaking at around 13 L of oxygen. Repeat B LICENSED PRACTICAL NURSE was around 900 which was higher than when she came in. Chest x-ray still showed bilateral pleural effusions. She therefore had right sided thoracentesis with drainage of about 1.4 L of fluid. Shortness of breath did improve in the next day she had left-sided thoracentesis with drainage of about 750 mils of fluid. Fluid analysis showed a transudate of effusion likely due to CHF exacerbation. Patient had been started on metoprolol during that this admission for her A. fib which was increased. However metoprolol was DC'd on account of her blood pressure running in the 80s and 90s systolic. Heart rate remained fairly well controlled in the low 100s. Patient was restarted on her Eliquis which have been held on account of her needing thoracentesis. She still did require about 2-3 L of oxygen to maintain his saturation. Her kidney function worsened and he developed AK I likely due to IV Lasix. IV Lasix was therefore stopped and she was put on 20 mg of Lasix daily p.o. Completed a 5-day course of p.o. ciprofloxacin. 2D echo done showed EF of 65% with moderately enlarged left atrium and normal left ventricular systolic function. She had a stable appearing prosthetic mitral valve apparatus and also had mild aortic stenosis as well as moderate 2+ tricuspid valve insufficiency. RVSP was 47 mmHg. Patient was [facility] to a [facility] facility on 07/13/2018 on p.o. Lasix 20 mg daily and her home dose of Eliquis as well as home oxygen. She is to follow-up with her primary care doctor and parliamentary archivist. She is to have follow-up serial BMP in the residential to monitor her kidney function as creatinine was 1.78 on discharge. Patient seen and examined prior to discharge. She had no complaints. She denied any fever, any chills, any cough or chest pain and admitted to mild shortness of breath. She was on 2-3 L of oxygen. 12 point review of systems otherwise negative. Labs and vitals reviewed. Home medications reviewed and reconciled. o/e: Vitals; Vital Signs Height 5 ft Weight: 119 lb 4.321 oz Weight in Pounds 119.3 lbs Pulse Ox 98 Temperature 97.5 F Pulse Rate [3] 104 Pulse Rate [2] 16 Pulse Rate [1 (Initial 102 Baseline)] Pulse Rate 112 Respiratory Rate [3] 16 Respiratory Rate [2] 89 Respiratory Rate [1 (Initial 16 Baseline)] Respiratory Rate 16 Blood Pressure [BP] 130/73 Blood Pressure [3] 97/69 Blood Pressure [2] 99/63 Blood Pressure [1 (Initial 105/65 Baseline)] Blood Pressure 100/61 Blood Pressure Position [BP] Semi-Fowlers Blood Pressure Position Supine General: Alert, Oriented x3, Cooperative, No apparent distress HEENT: Atraumatic, PERRLA, EOMI, Normocephalic Oral: Moist Mucosa Neck: Supple, No JVD, Negative Carotid Bruits Lungs: - - still has decreased breath sounds bibasally; no wheezing or crackles; on 3L of oxygen Cardiovascular: Regular rate, Regular Rhythm, Normal S1, Normal S2, No murmurs Abdomen: Bowel Sounds Present, Soft, Non Tender, Non-Distended, No Hepato-splenomegaly Extremities: No clubbing, No cyanosis, No edema, Capillary Refill Less than 3 Seconds Skin: No rashes, No breakdown Musculoskeletal: No Tenderness to Palpation of Joints or Extremities Lymphatic: No Cervical, Supraclavicular, or Inguinal Adenopathy Neurological: Cranial nerves II-XII grossly intact Psych/Mental Status: Normal Affect, Appropriate, Alert and oriented to time, place, person, mood and affect Plan as described above. Patient Problems: Active and Suspected Problems UTI (urinary tract infection) (Acute) CHF (congestive heart failure) (Acute) - Physical Exam Vital Signs Temp Pulse Resp BP Pulse Ox 97.3 F L 109 H 16 92/60 96 07/13/18 08:40 07/13/18 08:40 07/13/18 08:40 07/13/18 08:40 07/13/18 08:40 Oxygen Flow Rate (L/min) [3] 5 Oxygen Flow Rate (L/min) [2] 5 Oxygen Flow Rate (L/min) [1 ( 3 Initial Baseline)] Oxygen Flow Rate (L/min) 3 Oxygen Delivery Method [3] Nasal Cannula Oxygen Delivery Method [2] Nasal Cannula Oxygen Delivery Method [1 ( Nasal Cannula Initial Baseline)] Oxygen Delivery Method Nasal Cannula Weight: 119 lb 4.321 oz Body Mass Index (BMI) 24.0 Intake and Output for Last 24 Hours 07/11/18 07/12/18 07/13/18 23:59 23:59 23:59 Intake Total 885 / 885 1420 / 1420 310 / 310 Output Total 2445 / 2445 975 / 975 25 / Balance -1560 / -1560 445 / 445 285 / 285 Laboratory Tests Past 24 Hrs 07/11/18 07/11/18 07/13/18 11:30 11:30 06:15 Sodium 140 Potassium 3.6 Chloride 104 Carbon Dioxide 28.0 Anion Gap 8 BUN 22 H Creatinine 1.78 H Estim Creat Clear Calc 19.92 Est GFR (MDRD) Af Amer 36 L Est GFR (MDRD) Non-Af 30 L BUN/Creatinine Ratio 12.4 Glucose 176 H Calcium 7.0 L Fl Pathologist Comment Reviewed Miscellaneous Cytology SEE PATHOLOGY REPORT POC Glucose 07/13/18 07/12/18 07/12/18 06:45 21:09 16:51 POC Glucose 174 H 289 H 113 H 07/12/18 11:11 POC Glucose 276 H Discharge Diet: Low fat/ Low Cholesterol Home Medications: Medications to take at Discharge Acetaminophen 650 mg PO Q4H PRN PRN 07/04/18 Apixaban [Eliquis] 2.5 mg PO BID 07/04/18 Bisacodyl 10 mg RC DAILY PRN PRN 07/04/18 Calcium Carbonate 500 mg PO TID 07/04/18 Glucagon 1 mg IM X1 PRN 07/04/18 Insulin Lispro [Humalog] 0 unit SQ 4X/DAY 07/04/18 Ipratropium/Albuterol Sulfate [Duoneb] 3 ml INHALATION Q2H PRN PRN 07/04/18 Magnesium Hydroxide [Milk Of Magnesia] 30 ml PO DAILY PRN PRN 07/04/18 Melatonin/Pyridoxine HCl (B6) [Melatonin 3 mg Tablet] 1 each PO QHS PRN PRN 07/04/18 Miconazole Nitrate 1 gm MC TID 07/04/18 Na Phos,M-B/Na Phos,Di-Ba [Fleet Enema] 133 ml RC DAILY PRN PRN 07/04/18 Omeprazole 20 mg PO DAILY 07/04/18 Sennosides [Senna] 8.6 mg PO DAILY PRN PRN 07/04/18 Furosemide [Lasix] 20 mg PO DAILY #30 tab 07/13/18 Following Prescrptions Were Given to Patient: Furosemide [Lasix] 20 mg PO DAILY #30 tab Primary Care Physician: Patsy Cabrera [ALLIED HEALTH PROFESSIONAL] - Please follow up with your Primary Care Physician in: one week Please Follow Up With: Srinivas Montgomery MD When: 1 week Please Follow Up With: John Berger DO When: 1-2 weeks Disposition: [facility] facility Minutes spent on discharge:: 40 Patient Condition:: Stable Medical Necessity - Tobacco Use Smoking Status: Former smoker Tobacco Use: Cigarettes Meaningful Use Info Meaningful Use Diagnoses (Choose all that apply): CHF - CHF BAILEE/ARB ordered at discharge?: No Reason BAILEE/ARB not ordered?: Hypotension Documented LVEF (%): 65 Code Visit Inpatient E&M: 96930 Disch Hosp
--- NOTE | 2018-07-13 11:07 | CASEMGMT ---
Patient is ready for discharge to [facility]. GAUTAM faxed orders to [facility]. [place] [facility] [place] to get picked up at 230p via [employer] van. GAUTAM calculated an estimate for her transport. GAUTAM let patient know about transport time and approximate cost. GAUTAM told her SW will notify her family. SW notified patient's sister, Beatrice and she will notify son. GAUTAM also notified RN and RN, Mary at [facility]. GAUTAM did obtain a copy of the convalescent that was originally completed. This was included in patient's packet. All in agreement with d/c plan. Plan: d/c to [facility] under skilled level of care on a convalescent stay. [facility] [place] [employer] van. Kavya CARCAMO MSW
[2018-07-13 11:26] LABS: Bedside Glucose 118 mg/dL (70-110)
--- NOTE | 2018-07-13 12:54 | NURSING ---
Called report to Mary CASTILLO at [facility]
[2018-07-18 13:05] LABS: Glucose, Body Fluid 204 mg/dL (40-70); Protein, Body Fluid 0.6 g/dL (Not Establ.)
== END 2018-07-13 14:25 | disposition skilled nursing facility (03) | DRG 291 ==
LOC: ED 10:24 → PCU 12:06
PROVIDERS: Hospitalist; Internal Medicine Critical Care Medicine; Admitting Provider Family Medicine; Emergency Provider Emergency Medicine; Family Provider Preventive Medicine Occupational Medicine; PCP Preventive Medicine Occupational Medicine; Visit Provider Student in an Organized Health Care Education/Training Program
DX: I50.33 Acute on chronic diastolic (congestive) heart failure (principal); J96.01 Acute respiratory failure with hypoxia; G93.41 Metabolic encephalopathy; J91.8 Pleural effusion in other conditions classified elsewhere; N17.9 Acute kidney failure, unspecified; N39.0 Urinary tract infection, site not specified; I35.0 Nonrheumatic aortic (valve) stenosis; I07.1 Rheumatic tricuspid insufficiency; Z95.1 Presence of aortocoronary bypass graft; E11.9 Type 2 diabetes mellitus without complications; Z79.01 Long term (current) use of anticoagulants; Z95.2 Presence of prosthetic heart valve; I48.91 Unspecified atrial fibrillation; D69.6 Thrombocytopenia, unspecified; D64.9 Anemia, unspecified; K21.9 Gastro-esophageal reflux disease without esophagitis; I25.10 Atherosclerotic heart disease of native coronary artery without angina pectoris; Z95.0 Presence of cardiac pacemaker; Z87.891 Personal history of nicotine dependence; E87.6 Hypokalemia; Z79.4 Long term (current) use of insulin
CPT/HCPCS: 32555; 36415; 36600; 51702; 71045; 71046; 80048; 80061; 81001; 82274; 82803; 82945; 82962; 83605; 83615; 83880; 84156; 84157; 84484; 85025; 85610; 85730; 86850; 86900; 86920; 86922; 87077; 87086; 87088; 87184; 87186; 88108; 88305; 88313; 89050; 92526; 93005; 93306; 94002; 94003; 94640; 97162; 97166; 97530; 97803; 99285; J7030; J7040; J7050; P9016; A4216; J1940

== ENCOUNTER 2018-07-15 19:08 | Emergency (ER) | payer MEDICARE, OTHER, SELFPAY ==
[2018-07-04 13:03] VITALS: BMI 24.0
[2018-07-15] VITALS (7 sets, daily range): BP systolic 108–116; BP diastolic 70–80; PULSE 105–113; RESP 14–18; TEMP 36.2–36.4; O2SAT 94–98; BMI 23.6
--- NOTE | 2018-07-15 20:04 | EKG12_ITS ---
Test Reason : HYPOTENSION Blood Pressure : / mmHG Vent. Rate : 112 BPM Atrial Rate : 086 BPM P-R Int : 000 ms QRS Dur : 158 ms QT Int : 428 ms P-R-T Axes : 000 -83 160 degrees QTc Int : 584 ms Sinus tachycardia Left axis deviation Right bundle branch block Anteroseptal infarct , age undetermined T wave abnormality, consider lateral ischemia Abnormal ECG Confirmed by BAUTISTA GILLESPIE MD ([id number]), editorial assistant MUNA BOYKIN ([id number]) on 07/17/2018 9:34:30 AM Referred By: KEM Confirmed By:BAUTISTA GILLESPIE MD
--- NOTE | 2018-07-15 20:09 | ED.DCSUM_ITS ---
- ER Visit Summary Date of Service: 07/15/18 Chief Complaint: Hypotension per F History of Present Illness: The patient is a 72 F patient. She herself denies any nausea, vomiting or diarrhea. She denies any fever. States she feels fine. Denies any melena. No dysuria. She denies any complaints. Physical Examination: Elderly female no acute distress. Her initial blood pressure was 116/80 however it is currently 98/79. Heart rate of 112. Pulse ox 94% on oxygen. She is afebrile. Clinically she does not look septic or toxic. H EENT exam unremarkable. Moist weeks membranes. Neck nontender. No meningismus. No lymphadenopathy. Lungs clear to auscultation bilaterally. Heart regular rhythm rate about 110 no murmur. Abdomen is soft, nontender, nondistended with normal bowel sounds. No peritoneal signs. No hernias or masses. No pulsatile mass. Patient is moving all 4 extremities. She is neurologically awake and alert. Follows commands. Answers questions. She does have trace edema in both lower extremities. Calves are nontender. Back is nontender. She is kyphotic. Test Results: Chest x-ray bilateral pleural effusions which are chronic. Left- sided pacemaker. No acute process. EKG sinus rhythm rate of 112. Old right bundle branch block. Unchanged from prior EKG from June. CBC shows a white count of 10. Chronic anemia hemoglobin 11 which is her baseline. Chemistries unremarkable gap 11. BUN of 25 creatinine 1.83 she has chronic renal insufficiency that is similar to prior numbers. UA normal. There was a cath specimen. Troponin 0 0.068 but that is actually the lowest troponin she has had in the last several troponins. She has chronically elevated troponins. Lactic acid is 1.1. Emergency Department Course and Treatment: Patient with mild hypotension. Clinically does not appear ill. She will be treated with IV fluids with significant workup looking for possible infectious source. Patient was treated with IV fluids. Currently her blood pressure is 111/75. Again she has no complaints. Her abdomen remains benign and nontender. She and her family her card with her being discharged back to the extended care facility. I will have them hold any blood pressure medications if her systolic pressure is at or below 130. Treatment Plan: Follow-up with your doctor. Reevaluation of her medications. Disposition: Discharge Impression: Acute hypotension of uncertain etiology History of insulin-dependent diabetes History of A. fib History of renal insufficiency History of COPD. History of CAD with prior CABG This note was generated with Atl[employer] Search dictation software. It may contain incorrect words, spelling, and punctuation that were not noted in review of the chart prior to signing ED Disposition - Plan for ED Patient: Chief Complaint: Hypotension Referrals: Gianni Nava DO [Primary Care Provider] -
[2018-07-15 20:29] LABS: Absolute Lymphocyte Count 0.71 X10^3/ul (0.83-4.51); Absolute Neutrophil Count 8.7 X10^3/uL (2.0-7.7); Basophil# 0.05 X10^3/uL; Basophil% 0.5 % (0-1); Eosinophil# 0.18 X10^3/uL; Eosinophils% 1.7 % (0-5); Hematocrit 36.2 % (37-47); Hemoglobin 11.3 g/dl (12.0-15.0); Lymphocyte # 0.71 X10^3/ul (4.0); Lymphocyte % 6.9 % (19-41); Mean Corp Hgb Conc 31.2 g/gl (32-36); Mean Corpuscular Hgb 30.1 pg (27.0-32.0); Mean Corpuscular Volume 96.5 fL (81-99); Mean Platelet Vol. 10.7 fl (6.2-12.0); Monocyte# 0.67 X10^3/uL; Monocyte% 6.5 % (0-10); Neutrophil # 8.68 X10^3/uL (2.7-7.7); Neutrophil % 84.1 % (47-70); Platelet Count 156 K/mm3 (150-450); RBC Distribution Width CV 17.6 % (11.6-14.6); RBC Distribution Width SD 62.4 fl (35.1-43.9); Red Blood Count 3.75 M/mm3 (4.2-5.4); White Blood Count 10.3 K/mm3 (4.4-11.0)
[2018-07-15 20:34] LABS: POSITIVE COUNT NO; POSITIVE DIFFERENTIAL NO; POSITIVE MORPHOLOGY NO
--- NOTE | 2018-07-15 20:45 | RAD_ITS ---
STUDY: X-RAY CHEST REASON FOR EXAM: Female, 72 years old. Hypotension TECHNIQUE: PA and lateral views of the chest. COMPARISON: Previous study of 07/12/2018 FINDINGS: A bipolar left-sided pacemaker is present. monitoring coordinator leads are seen. An atrial appendage clip is noted. There is bilateral perihilar/lower lobe infiltrate and/or atelectasis. There are small bilateral effusions difficult to quantitate on this study. The cardiac silhouette is partially obscured by the bilateral effusions. Status post cardiac valvular replacement changes are noted. Normal mediastinum and billy. Normal visualized pulmonary arteries. There are calcified plaques of the aortic arch. Generalized osteopenia is present. There is an increased thoracic kyphosis. Normal visualized ribs, clavicles, and shoulders. There is no demonstrated abnormality of the visualized soft tissue structures of the upper abdomen. RAD/Chest PA and Lateral IMPRESSION: 1. Bilateral perihilar/lower lobe infiltrates and/or atelectasis. These appear more pronounced than noted on the previous study. 2. Small bilateral effusions difficult to quantitate on this study. 3. The cardiac silhouette is partially obscured by the bilateral effusions. Status post cardiac valvular replacement changes are noted. 4. Calcified plaques of the aortic arch. 5. Bipolar left-sided pacemaker. Electronically Signed: Willie Van MD at 21:33 EST , Service support ,
[2018-07-15 20:46] LABS: Anion Gap 11 (5-15); BUN 25 mg/dL (7-18); BUN/Creat Ratio 13.7 RATIO (10-20); Calcium,Total 8.2 mg/dL (8.5-10.1); Chloride 103 mmol/L (98-107); Creatinine, Serum 1.83 mg/dL (0.55-1.02); EST Glomerular Filtration Rate 29 mL/min (>60); Est Glom Filt Rate - Afr Amer 35 mL/min (>60); Estimated Creatinine Clearance 19.37 ml/min; Glucose 116 mg/dL (74-106); Potassium 3.8 mmol/L (3.5-5.1); Sodium Level 140 mmol/L (136-145)
[2018-07-15 21:01] LABS: Lactic Acid 1.1 mmol/L (0.4-2.0)
[2018-07-15 21:24] LABS: Bacteria 0 SEEN /hpf (None Seen); Mucous, Urine 0 SEEN /hpf (<or=2+); Red Blood Cells-Urine 0 SEEN /hpf (0-5); Squamous Epithelial Cells - UA 0 SEEN /hpf (5-10)
[2018-07-15 21:26] LABS: Color, Urine Yellow (Yellow); Glucose, Dipstick Normal (Normal); Ketone-Dipstick 5 mg/dl (Negative); Leukocyte Esterase-Dipstick 25 /ul (Negative); Nitrite-Dipstick Negative (Negative); Occult Blood-Urine Negative /ul (Negative); Protein-Dipstick Negative (Negative); Urine Clarity Cloudy (Clear); Urine Urobilinogen Normal (Normal)
[2018-07-15 21:35] LABS: Urine Bilirubin Dipstick 1 mg/dL (Negative)
[2018-07-15 21:42] LABS: Hyaline Cast 10-25 SEEN /lpf (0-5)
[2018-07-15 21:45] LABS: Amorphous Sediment 1+
[2018-07-15 21:46] LABS: White Blood Cells 0-5 SEEN /hpf (0-5)
[2018-07-15 21:47] LABS: Yeast-Urine 1+ /hpf (None Seen)
[2018-07-15 21:48] LABS: Calcium Oxalate Crystals Ur RARE /hpf (<or=2+); Transitional Epithelial - Ur 0-5 SEEN /hpf (0-5)
== END 2018-07-15 23:05 | disposition home or self-care (01) ==
PROVIDERS: Emergency Provider Emergency Medicine; Family Provider Preventive Medicine Occupational Medicine; PCP Preventive Medicine Occupational Medicine
DX: I95.9 Hypotension, unspecified (principal); J90 Pleural effusion, not elsewhere classified; E11.9 Type 2 diabetes mellitus without complications; I48.91 Unspecified atrial fibrillation; J44.9 Chronic obstructive pulmonary disease, unspecified; I25.10 Atherosclerotic heart disease of native coronary artery without angina pectoris; N28.9 Disorder of kidney and ureter, unspecified; Z95.1 Presence of aortocoronary bypass graft; Z79.4 Long term (current) use of insulin; Z95.0 Presence of cardiac pacemaker
CPT/HCPCS: 71046; 80048; 81001; 83605; 84484; 85025; 87040; 93005; 96360; 99285; J7030; J7040; P9612; A4216

== ENCOUNTER 2018-07-18 14:05 | Inpatient (IN) | payer MEDICARE, OTHER, SELFPAY ==
[2018-07-15 19:10] VITALS: BMI 23.6
[2018-07-18] VITALS (13 sets, daily range): BP systolic 99–122; BP diastolic 58–76; PULSE 111–115; RESP 18–28; TEMP 35.9–36.8; O2SAT 81–100; BMI 24.0; BMI 21.9
--- NOTE | 2018-07-18 14:26 | EKG12_ITS ---
Test Reason : SOB Blood Pressure : / mmHG Vent. Rate : 113 BPM Atrial Rate : 138 BPM P-R Int : 000 ms QRS Dur : 142 ms QT Int : 438 ms P-R-T Axes : 000 -80 125 degrees QTc Int : 600 ms Atrial fibrillation Left axis deviation Right bundle branch block Septal infarct , age undetermined Possible Lateral infarct , age undetermined Inferior infarct , age undetermined Abnormal ECG Confirmed by VERNA SIMS, BAUTISTA ([id number]), newspaper managing editor MUNA BOYKIN ([id number]) on 07/23/2018 10:04:44 AM Referred By: CORIE Confirmed By:BAUTISTA GILLESPIE MD
--- NOTE | 2018-07-18 14:30 | RAD_ITS ---
STUDY: X-RAY CHEST REASON FOR EXAM: Female, 72 years old. Weakness and shortness of breath. TECHNIQUE: Single AP portable view of the chest. COMPARISON: Comparison is made with prior study dated July 15, 2018. FINDINGS: EKG electrodes are seen. Moderate bilateral pleural effusions worse on the right side with underlying infiltration and/or atelectasis. Gastric congestion and CHF. Sternal cerclage wires are present from a prior sternotomy. The patient is status post mitral valve replacement as well as clipping of the left atrial appendage. A dual-chamber pacemaker is seen. Normal mediastinum and billy. Normal visualized pulmonary arteries. There is atherosclerotic calcification of the aortic arch with tortuosity. There are diffuse degenerative changes of the visualized thoracic spine. Normal visualized ribs, clavicles, and shoulders. There is no demonstrated abnormality of the visualized soft tissue structures of the upper abdomen. RAD/Chest 1 View (Portable) IMPRESSION: Bilateral pleural effusions with bibasilar atelectasis and/or infiltrate superimposed on CHF. Electronically Signed: David Santamaria MD at 14:54 EST Tel [phone], Service support ,
--- NOTE | 2018-07-18 15:41 | ED.VISSUMM ---
- ER Visit Summary Date of Service: 07/18/18 Chief Complaint: Shortness of breath History of Present Illness: The patient is a 72 F presenting for evaluation secondary to shortness of breath. Patient has a underlying history of congestive heart failure with recent admission to the hospital for CHF, urinary tract infection, and sepsis. She was recently discharged to the assisted at the beginning of the year. Patient was in the emergency department 3 days ago for a borderline blood pressure and was discharged. Today apparently the patient was having some increased shortness of breath on her baseline oxygen. She typically is on which she says is 4 L at baseline, and was told by the assisted of any 8% on room air. Patient endorses that she has been having some dyspnea and cough. She also endorses that she has been having some lower extremity edema. She denies any presence of fevers or chest pain. She denies any abdominal pain nausea vomiting or any other infectious signs or symptoms. Physical Examination: Vital signs notable for heart rate of 111, room air pulse ox is 81%, but comes up appropriately on 2 L to 100%. Patient is well-developed and appears older than stated age. No conjunctival pallor. Dry mucous membranes are noted. Neck was supple no JVD was noted. Heart was tachycardic and regular no murmurs. Respirations were tachypneic, with decreased sounds in the lung bases bilaterally. Abdomen soft and nontender. 1+ bilaterally symmetric pitting edema. Patient was somewhat pale. She was alert and oriented without lateralizing neurological deficits. Test Results: EKG demonstrates right bundle branch block with sinus tachycardia rate of 113 no evidence of acute changes from prior EKG and no acute ischemia. Chest x-ray shows bilateral pleural effusions somewhat worse than prior chest x-ray with evidence of superimposed CHF and infiltrate. Chemistry demonstrates chronic kidney disease. Creatinine elevated at 1.7 and troponin also elevated to an indeterminate level at 0.05 which seems consistent with the patient's prior history. BNP elevated in the 500 range. Lactic acid found to be elevated at 2.1 Emergency Department Course and Treatment: Patient presented secondary to shortness of breath. Patient was evaluated for the possibility of sepsis since she does have tachycardia. Chest x-ray demonstrated the patient to have some worsening infiltrates and bilateral pleural effusions. Troponin elevated to an indeterminate level at 0.05, BNP slightly elevated at 500, creatinine chronically elevated 1.7, lactic acid mildly elevated at 2.1. Patient's overall clinical picture is not precisely clear whether this is complete CHF versus pneumonia versus a combination of 2, but I do believe that she requires antibiotics and admission. Patient was given gentle fluid hydration, and will be started on Levaquin. She will be admitted under the hospitalist. Disposition: Admission Impression: 1. Pneumonia 2. Congestive heart failure This note was generated with Dialog[employer] dictation software. It may contain incorrect words, spelling, and punctuation that were not noted in review of the chart prior to signing ED Disposition - Plan for ED Patient: Chief Complaint: Shortness of Breath Referrals: Gianni Nava DO [Primary Care Provider] -
--- NOTE | 2018-07-18 15:45 | ED.DCSUM_ITS ---
- ER Visit Summary Date of Service: 07/18/18 Chief Complaint: Shortness of breath History of Present Illness: The patient is a 72 F presenting for evaluation secondary to shortness of breath. Patient has a underlying history of congestive heart failure with recent admission to the hospital for CHF, urinary tract infection, and sepsis. She was recently discharged to the custodial at the beginning of the year. Patient was in the emergency department 3 days ago for a borderline blood pressure and was discharged. Today apparently the patient was having some increased shortness of breath on her baseline oxygen. She typically is on which she says is 4 L at baseline, and was told by the custodial of any 8% on room air. Patient endorses that she has been having some dyspnea and cough. She also endorses that she has been having some lower extremity edema. She denies any presence of fevers or chest pain. She denies any abdominal pain nausea vomiting or any other infectious signs or symptoms. Physical Examination: Vital signs notable for heart rate of 111, room air pulse ox is 81%, but comes up appropriately on 2 L to 100%. Patient is well-developed and appears older than stated age. No conjunctival pallor. Dry mucous membranes are noted. Neck was supple no JVD was noted. Heart was tachycardic and regular no murmurs. Respirations were tachypneic, with decreased sounds in the lung bases bilaterally. Abdomen soft and nontender. 1+ bilaterally symmetric pitting edema. Patient was somewhat pale. She was alert and oriented without lateralizing neurological deficits. Test Results: EKG demonstrates right bundle branch block with sinus tachycardia rate of 113 no evidence of acute changes from prior EKG and no acute ischemia. Chest x-ray shows bilateral pleural effusions somewhat worse than prior chest x- ray with evidence of superimposed CHF and infiltrate. Chemistry demonstrates chronic kidney disease. Creatinine elevated at 1.7 and troponin also elevated to an indeterminate level at 0.05 which seems consistent with the patient's prior history. BNP elevated in the 500 range. Lactic acid found to be elevated at 2.1 Emergency Department Course and Treatment: Patient presented secondary to shortness of breath. Patient was evaluated for the possibility of sepsis since she does have tachycardia. Chest x-ray demonstrated the patient to have some worsening infiltrates and bilateral pleural effusions. Troponin elevated to an indeterminate level at 0.05, BNP slightly elevated at 500, creatinine chronically elevated 1.7, lactic acid mildly elevated at 2.1. Patient's overall clinical picture is not precisely clear whether this is complete CHF versus pneumonia versus a combination of 2, but I do believe that she requires antibiotics and admission. Patient was given gentle fluid hydration, and will be started on Levaquin. She will be admitted under the hospitalist. Disposition: Admission Impression: 1. Pneumonia 2. Congestive heart failure This note was generated with [employer] dictation software. It may contain incorrect words, spelling, and punctuation that were not noted in review of the chart prior to signing ED Disposition - Plan for ED Patient: Chief Complaint: Shortness of Breath Referrals: Gianni Nava DO [Primary Care Provider] -
[2018-07-18 15:55] LABS: ALB/GLOB Ratio 0.6 RATIO (0.9-2.4); AST(SGOT) 21 U/L (15-37); Alanine Aminotransfer ALT/SGPT 13 U/L (13-56); Albumin, Serum 2.2 g/dL (3.2-5.0); Alkaline Phosphatase 127 U/L (45-117); Anion Gap 8 (5-15); BUN 24 mg/dL (7-18); BUN/Creat Ratio 13.9 RATIO (10-20); Calcium,Total 7.9 mg/dL (8.5-10.1); Chloride 102 mmol/L (98-107); Creatinine, Serum 1.73 mg/dL (0.55-1.02); EST Glomerular Filtration Rate 31 mL/min (>60); Est Glom Filt Rate - Afr Amer 37 mL/min (>60); Estimated Creatinine Clearance 20.49 ml/min; Glucose 143 mg/dL (74-106); Potassium 3.4 mmol/L (3.5-5.1); Protein, Total 6.2 g/dL (6.4-8.2); Sodium Level 139 mmol/L (136-145)
[2018-07-18 16:08] LABS: BNP,B-Type NATRIURETIC PEPTIDE 565.7 pg/mL (0-100)
[2018-07-18 16:14] LABS: Absolute Lymphocyte Count 0.47 X10^3/ul (0.83-4.51); Absolute Neutrophil Count 6.6 X10^3/uL (2.0-7.7); Basophil# 0.04 X10^3/uL; Basophil% 0.5 % (0-1); Eosinophil# 0.12 X10^3/uL; Eosinophils% 1.6 % (0-5); Hematocrit 33.2 % (37-47); Hemoglobin 10.3 g/dl (12.0-15.0); Lactic Acid 2.1 mmol/L (0.4-2.0); Lymphocyte # 0.47 X10^3/ul (4.0); Lymphocyte % 6.1 % (19-41); Mean Corpuscular Hgb 29.4 pg (27.0-32.0); Mean Corpuscular Volume 94.9 fL (81-99); Mean Platelet Vol. 11.6 fl (6.2-12.0); Monocyte# 0.38 X10^3/uL; Monocyte% 4.9 % (0-10); Neutrophil # 6.63 X10^3/uL (2.7-7.7); Neutrophil % 85.9 % (47-70); Platelet Count 112 K/mm3 (150-450); RBC Distribution Width CV 17.3 % (11.6-14.6); RBC Distribution Width SD 60.5 fl (35.1-43.9); White Blood Count 7.7 K/mm3 (4.4-11.0)
[2018-07-18 16:15] LABS: International Normalized Ratio 1.2; Partial Thromboplast Time 27.3 Seconds (24.1-36.2)
[2018-07-18 16:25] LABS: Bacteria 0 SEEN /hpf (None Seen); Mucous, Urine 0 SEEN /hpf (<or=2+); Red Blood Cells-Urine 0 SEEN /hpf (0-5); Squamous Epithelial Cells - UA 0 SEEN /hpf (5-10); White Blood Cells 0 SEEN /hpf (0-5)
[2018-07-18 16:27] LABS: POSITIVE COUNT YES; POSITIVE DIFFERENTIAL YES; POSITIVE MORPHOLOGY NO
[2018-07-18 16:28] LABS: Differential Indicated SCAN CRITERIA MET
[2018-07-18 16:29] LABS: Color, Urine Yellow (Yellow); Glucose, Dipstick Normal (Normal); Ketone-Dipstick Negative (Negative); Leukocyte Esterase-Dipstick Negative /ul (Negative); Nitrite-Dipstick Negative (Negative); Occult Blood-Urine Negative /ul (Negative); Protein-Dipstick Negative (Negative); Specific Gravity, Urine 1.015 (1.002-1.030); Urine Bilirubin Dipstick Negative (Negative); Urine Clarity Clear (Clear); Urine Urobilinogen Normal (Normal)
--- NOTE | 2018-07-18 16:38 | NURSING ---
MED SURG PNEUMONIA, CHF BERNARDO
--- NOTE | 2018-07-18 16:52 | HP.PCM_ITS ---
Problem List (1) (HFpEF) heart failure with preserved ejection fraction Status: Acute History of Present Illness Date of Admission: 07/18/18 Chief Complaint: shortness of breath. The patient is a 72 year old F who was just discharged on the with CHF and a UTI, presents with increasing shortness of breath--similar to her last admission. Was seen in ED on for hypotension and sent home. Shortness of breath has gotten worse since her discharge. Increased lower extremity edema. CXR showed worsening CHF and pleural effusion. Did have a thoracentesis performed on the right on 07/11, which removed 1420cc, and on the left on 07/12, which removed 750cc. Fluid was transudative in appearance. Was discharged on lasix 20mg/d. Patient is a poor historian due to being listless. So, much of the history is obtained through the ER physician and a chart review.] Past Medical History Past Medical History (Chronic Problems): Chronic Problems CAD (coronary artery disease) (Chronic) Medical History: Medical History (Last Updated 07/18/18 @ 16:53 by Neil Villagran DO) (HFpEF) heart failure with preserved ejection fraction I50.30 CAD (coronary artery disease) I25.10 Allergies simvastatin [From Zocor] Allergy (Verified 07/18/18 14:07) Unknown Home Medications: Ambulatory Orders Medication Instructions Recorded Acetaminophen 650 mg PO Q4H PRN PRN 07/04/18 Apixaban [Eliquis] 2.5 mg PO BID 07/04/18 Bisacodyl 10 mg RC DAILY PRN PRN 07/04/18 Calcium Carbonate 500 mg PO TID 07/04/18 Glucagon 1 mg IM X1 PRN 07/04/18 Insulin Lispro [Humalog] See Protocol SQ 4X/DAY 07/04/18 Ipratropium/Albuterol Sulfate 3 ml INHALATION Q2H PRN PRN 07/04/18 [Duoneb] Magnesium Hydroxide [Milk Of 30 ml PO DAILY PRN PRN 07/04/18 Magnesia] Melatonin/Pyridoxine HCl (B6) 1 each PO QHS PRN PRN 07/04/18 [Melatonin 3 mg Tablet] Na Phos,M-B/Na Phos,Di-Ba [Fleet 133 ml RC DAILY PRN PRN 07/04/18 Enema] Omeprazole 20 mg PO DAILY 07/04/18 Sennosides [Senna] 8.6 mg PO DAILY PRN PRN 07/04/18 Furosemide [Lasix] 20 mg PO DAILY 07/18/18 Surgical History: cholecystectomy, coronary bypass surgery, - - Mitral valve replacement, and permanent pacemaker. Smoking Status: Former smoker Tobacco Use: Non-smoker Alcohol: None Drugs: None - *Family History Maternal History Items: Diabetes, Heart Disease, Hypertension Paternal History Items: Cancer, Diabetes, Heart Disease, Hypertension, Stroke Review of Systems Constitutional: Denies: Anorexia, Chills, Fever Eyes: Denies: Blurred vision, Double vision HEENT: Denies: Head Aches, Sinus Congestion, Sinus Drainage Cardiovascular: Reports: Edema. Denies: Chest Pain Respiratory: Reports: Cough - non-productive., Shortness of Breath Gastrointestinal: Denies: Abdominal Pain, Nausea, Vomiting Genitourinary: Denies: Dysuria, Frequency Musculoskeletal: Denies: Joint Pain, Joint Tenderness Skin: Denies: Rash, Wounds Neurological: Denies: Numbness, Tingling, Focal weakness Psychiatric: Denies: Anxiety, Depression Hematologic/ Lymphatic: Denies: Easy Bruising, Easy Bleeding, Hx of blood clot Comment: A 10 point review of systems were negative except as mentioned in the history of present illness and the other review of systems. VTE Information - Inpt Only VTE Present on Admission: No VTE Mechan Device Prophylaxis: None VTE Pharm Prophylaxis ordered?: Yes Patient Problems: Active and Suspected Problems (HFpEF) heart failure with preserved ejection fraction (Acute) - Physical Exam General: Alert, No apparent distress, - - Appears much older than stated age. Afebrile. No respiratory distress. No conversational dyspnea. HEENT: Atraumatic, Normocephalic Oral: Moist Mucosa, No Gingival or Mucosal Lesions/ Ulcerations Neck: No JVD, No Nodes Lungs: Diminished, - - Coarse breath sounds bilaterally Cardiovascular: Regular rate, Regular Rhythm, Normal S1, Normal S2, No murmurs Abdomen: Bowel Sounds Present, Soft, Non Tender, Non-Distended, No Hepato- splenomegaly Extremities: No Calf Tenderness, Edema Skin: No rashes, No breakdown, - - Some mottling on her knees. Abrasion on the left upper extremity Musculoskeletal: Cachexia, Muscle Wasting Neurological: Sensory exam intact to light touch and pain, - - No clonus Psych/Mental Status: Appropriate, Flat Affect Vital Signs Temp Pulse Resp BP Pulse Ox 36.1 C L 113 H 19 H 114/70 99 07/18/18 16:25 07/18/18 16:25 07/18/18 16:25 07/18/18 16:25 07/18/18 16:25 Oxygen Flow Rate (L/min) 2.5 Oxygen Delivery Method Nasal Cannula Weight: 55.8 kg Body Mass Index (BMI) 24.0 Microbiology Past 72 Hours 07/18/18 14:40 Influenza Types A,B Direct FA ([facility]) - Final Mucosa - Nose Laboratory Tests Past 24 Hrs 07/18/18 07/18/18 07/18/18 15:20 15:20 15:20 WBC 7.7 RBC 3.50 L Hgb 10.3 L Hct 33.2 L MCV 94.9 MCH 29.4 MCHC 31.0 L RDW 17.3 H RDW Differential 60.5 H Plt Count 112 L MPV 11.6 Immature Gran % (Auto) 1.000 H Neut % (Auto) 85.9 H Lymph % (Auto) 6.1 L Daniels % (Auto) 4.9 Eos % (Auto) 1.6 Baso % (Auto) 0.5 Absolute Neuts (auto) 6.6 Absolute Lymphs (auto) 0.47 L Total Counted Pending PT 15.0 H INR 1.2 APTT 27.3 Sodium 139 Potassium 3.4 L Chloride 102 Carbon Dioxide 29.0 Anion Gap 8 BUN 24 H Creatinine 1.73 H Estim Creat Clear Calc 20.49 Est GFR (MDRD) Af Amer 37 L Est GFR (MDRD) Non-Af 31 L BUN/Creatinine Ratio 13.9 Glucose 143 H Lactic Acid Calcium 7.9 L Total Bilirubin 0.40 AST 21 ALT 13 Alkaline Phosphatase 127 H Troponin I 0.050 H B-Natriuretic Peptide Total Protein 6.2 L Albumin 2.2 L Globulin 4.0 Albumin/Globulin Ratio 0.6 L Urine Color Urine Clarity Urine pH Ur Specific [place] Urine Protein Urine Glucose (UA) Urine Ketones Urine Occult Blood Urine Nitrite Urine Bilirubin Urine Urobilinogen Ur Leukocyte Esterase Urine RBC Urine WBC Ur Squamous Epith Cells Urine Bacteria Urine Mucus 07/18/18 07/18/18 07/18/18 15:20 15:20 16:20 WBC RBC Hgb Hct MCV MCH MCHC RDW RDW Differential Plt Count MPV Immature Gran % (Auto) Neut % (Auto) Lymph % (Auto) [place] % (Auto) Eos % (Auto) Baso % (Auto) Absolute Neuts (auto) Absolute Lymphs (auto) Total Counted PT INR APTT Sodium Potassium Chloride Carbon Dioxide Anion Gap BUN Creatinine Estim Creat Clear Calc Est GFR (MDRD) Af Amer Est GFR (MDRD) Non-Af BUN/Creatinine Ratio Glucose Lactic Acid 2.1 H Calcium Total Bilirubin AST ALT Alkaline Phosphatase Troponin I B-Natriuretic Peptide 565.7 H Total Protein Albumin Globulin Albumin/Globulin Ratio Urine Color Yellow Urine Clarity Clear Urine pH 5.0 Ur Specific [place] 1.015 Urine Protein Negative Urine Glucose (UA) Normal Urine Ketones Negative Urine Occult Blood Negative Urine Nitrite Negative Urine Bilirubin Negative Urine Urobilinogen Normal Ur Leukocyte Esterase Negative Urine RBC 0 SEEN Urine WBC 0 SEEN Ur Squamous Epith Cells 0 SEEN Urine Bacteria 0 SEEN Urine Mucus 0 SEEN Clinical Impression(s) from Imaging Studies Chest X-Ray 07/18/18 14:30 IMPRESSION: Bilateral pleural effusions with bibasilar atelectasis and/or infiltrate superimposed on CHF. Electronically Signed: David Santamaria MD at 14:54 EST Tel [phone], Service support , Assessment/Plan All Active Problems UTI (urinary tract infection) (Acute) CHF (congestive heart failure) (Acute) (HFpEF) heart failure with preserved ejection fraction (Acute) 1. Acute heart failure with preserved ejection fraction EF 65% We will place the patient on IV Lasix at 40 mg twice daily Will need to monitor the patient's creatinine closely Would hold off on BAILEE inhibitors and angiotensin receptor blockers given the patient's overall worsened kidney function, though stable from last admission. 2. Acute kidney injury Was not present when patient was admitted last admission but has steadily worsened but has remained stable since the third Cautious diuresis monitor labs closely 3. Moderate protein malnutrition Complicates care Supplements Consult nutrition 4. DVT prophylaxis with subcu heparin 5. Pleural effusions Have reaccumulated Transudate of based on thoracentesis from last admission We will can continue with medical management at this time, however it seems to be increasing despite diuresis then would recommend doing another thoracentesis. Would need to hold the patient's apixaban before undergoing the procedure. 6. Advanced care planning: Discussed with patient. Patient wishes to have CPR and intubation but would declined a PEG tube in the event of dysphagia. I did state to seen who I believe is her son that is very concerned the patient is back in the hospital with a worsened clinical picture with an approximately 5 days. Code Visit Inpatient E&M: 04182 Init Hosp L3
--- NOTE | 2018-07-18 16:54 | ED.RN ---
REPORT CALLED TO MARIAELENA AT [facility]
[2018-07-18] MEDS: Ipratropium/Albuterol Sulfate 3 ML AMPUL.NEB INHALATION ×2 (17:20→20:51)
[2018-07-18 17:33] LABS: Platelet Estimate SLT DEC (ADEQ); Red Cell Morphology N CHROM NORMAL (NORM C&C)
[2018-07-18 17:34] LABS: Anisocytosis 1+
[2018-07-18 18:17] LABS: Thyroid Stim Hormone (TSH) 8.05 uIU/mL (0.358-3.74)
[2018-07-18] MEDS: Furosemide 40 MG/4 ML Vial IV (18:25)
[2018-07-18] MEDS: 0.9% NaCl Peripheral Flush Adult/Peds IV (18:25)
[2018-07-18 19:27] LABS: Reflex Lactate? Y
[2018-07-18 20:45] LABS: Lactic Acid 1.9 mmol/L (0.4-2.0)
[2018-07-18] MEDS: APIXABAN 2.5 MG TABLET PO (22:44)
[2018-07-18] MEDS: Miconazole Nitrate Cream 1 APPLIC TOPICAL (22:47)
[2018-07-19] VITALS (21 sets, daily range): BP systolic 94–125; BP diastolic 60–75; PULSE 90–118; RESP 12–27; TEMP 36.4–37.1; O2SAT 91–97
[2018-07-19] MEDS: 0.9% NaCl Peripheral Flush Adult/Peds IV ×3 (01:53→09:08)
[2018-07-19 02:20] LABS: Bedside Glucose 259 mg/dL (70-110)
[2018-07-19 06:57] LABS: Anion Gap 11 (5-15); BUN 26 mg/dL (7-18); BUN/Creat Ratio 13.8 RATIO (10-20); Calcium,Total 7.7 mg/dL (8.5-10.1); Chloride 104 mmol/L (98-107); Creatinine, Serum 1.89 mg/dL (0.55-1.02); EST Glomerular Filtration Rate 28 mL/min (>60); Est Glom Filt Rate - Afr Amer 33 mL/min (>60); Estimated Creatinine Clearance 18.76 ml/min; Glucose 235 mg/dL (74-106); Magnesium 2.4 mg/dL (1.6-2.6); Potassium 3.3 mmol/L (3.5-5.1); Sodium Level 142 mmol/L (136-145)
[2018-07-19 07:15] LABS: Bedside Glucose 221 mg/dL (70-110)
[2018-07-19] MEDS: Ipratropium/Albuterol Sulfate 3 ML AMPUL.NEB INHALATION ×4 (07:41→19:10)
[2018-07-19] MEDS: Insulin Lispro 100 UNIT/ML INSULN.PEN SQ ×3 (09:05→17:40)
[2018-07-19] MEDS: Furosemide 40 MG/4 ML Vial IV ×2 (09:07→17:36)
[2018-07-19] MEDS: Pantoprazole Sodium 20 MG Tablet PO (09:11)
[2018-07-19] MEDS: APIXABAN 2.5 MG TABLET PO (09:11)
[2018-07-19] MEDS: Calcium (Elemental) 500 MG Tablet PO ×3 (09:11→17:36)
[2018-07-19 09:46] LABS: Allen Test POS; Base Excess 2 mmol/L (-2 to +2); Bicarbonate 26.2 mmol/L (22-26); Blood Gas Specimen Type ART; EPAP 6; FI02 50; IPAP 10; PO2 74 mmHG (75-100); RR 12; SITE R Radial; SO2 95 % (95-99); Time Given 935; Total Carbon Dioxide 27 mmol/L; pCO2 40.9 mmHg (35-45); pH 7.41 (7.35-7.45)
--- NOTE | 2018-07-19 10:33 | PCM.PROGNOTE ---
Patient Problems: Active and Suspected Problems (Last Updated 07/18/18 @ 16:53 by Neil Villagran DO) (HFpEF) heart failure with preserved ejection fraction (Acute) Subjective: Chief complaint: Follow-up after admission for acute on chronic diastolic CHF, acute on chronic hypoxic respiratory failure, recurrent bilateral pleural effusion and acute kidney injury on top of stage III chronic kidney disease. Patient seen and examined. No acute events overnight. This morning, she was more short of breath, dyspneic and tachypneic, started on BiPAP. Patient is not able to provide good history. She did mention that her breathing is the same compared to yesterday. She complained of cough, no sputum. Denies chest pain. She is afebrile, tachycardic, blood pressure stable, pulse ox is 95% on BiPAP. - Physical Exam General: Alert, Cooperative, - - Dyspneic, tachypneic, short of breath. HEENT: Atraumatic, PERRLA, EOMI Oral: Moist Mucosa, No Gingival or Mucosal Lesions/ Ulcerations Neck: Supple, No JVD, Negative Carotid Bruits, Trachea Midline, Thyroid Normal Size and Texture Lungs: No wheeze, Diminished, Rhonchi, Short of Breath, Tachypneic, - - Absent breath sounds on the right base, decreased breath sounds on the other dong, rhonchi. Cardiovascular: Regular rate, Regular Rhythm, Normal S1, Normal S2, PMI Normal, Tachycardic Abdomen: Bowel Sounds Present, Soft, Non Tender, Non-Distended, No Hepato-splenomegaly Extremities: No clubbing, No cyanosis, Edema Skin: No rashes, No breakdown Lymphatic: No Cervical, Supraclavicular, or Inguinal Adenopathy Neurological: Cranial nerves II-XII grossly intact, Neuro grossly intact Psych/Mental Status: Flat Affect Vital Signs Temp Pulse Resp BP Pulse Ox 98.6 F 113 H 20 H 125/72 H 96 07/19/18 10:13 07/19/18 10:13 07/19/18 10:13 07/19/18 10:13 07/19/18 10:13 Oxygen Flow Rate (L/min) 50 Oxygen Delivery Method Bi-pap Weight: 112 lb 3.445 oz Body Mass Index (BMI) 21.9 Intake and Output for Last 24 Hours 07/17/18 07/18/18 07/19/18 23:59 23:59 23:59 Intake Total 100 / 100 50 / 50 Balance 100 / 100 50 / 50 Microbiology Past 72 Hours 07/18/18 14:40 Influenza Types A,B Direct FA ([facility]DES) - Final Mucosa - Nose Laboratory Tests Past 24 Hrs 07/18/18 07/18/18 07/18/18 15:20 15:20 15:20 WBC 7.7 RBC 3.50 L Hgb 10.3 L Hct 33.2 L MCV 94.9 MCH 29.4 MCHC 31.0 L RDW 17.3 H RDW Differential 60.5 H Plt Count 112 L MPV 11.6 Immature Gran % (Auto) 1.000 H Neut % (Auto) 85.9 H Lymph % (Auto) 6.1 L [place] % (Auto) 4.9 Eos % (Auto) 1.6 Baso % (Auto) 0.5 Absolute Neuts (auto) 6.6 Absolute Lymphs (auto) 0.47 L Total Counted Not Reportable Differential Comment Platelet Estimate SLT DEC RBC Morphology N CHROM Anisocytosis 1+ PT 15.0 H INR 1.2 APTT 27.3 Specimen Type Sample Site pH Bicarbonate Actual POC Total CO2 Base Excess O2 Saturation O2 % ABG pCO2 ABG pO2 Bryant Test Respiration Rate O2 Delivery Device EPAP IPAP Blood Gas Notified Whom Blood Gas Notified Time Sodium 139 Potassium 3.4 L Chloride 102 Carbon Dioxide 29.0 Anion Gap 8 BUN 24 H Creatinine 1.73 H Estim Creat Clear Calc 20.49 Est GFR (MDRD) Af Amer 37 L Est GFR (MDRD) Non-Af 31 L BUN/Creatinine Ratio 13.9 Glucose 143 H Lactic Acid Calcium 7.9 L Magnesium Total Bilirubin 0.40 AST 21 ALT 13 Alkaline Phosphatase 127 H Troponin I 0.050 H B-Natriuretic Peptide Total Protein 6.2 L Albumin 2.2 L Globulin 4.0 Albumin/Globulin Ratio 0.6 L TSH Urine Color Urine Clarity Urine pH Ur Specific [place] Urine Protein Urine Glucose (UA) Urine Ketones Urine Occult Blood Urine Nitrite Urine Bilirubin Urine Urobilinogen Ur Leukocyte Esterase Urine RBC Urine WBC Ur Squamous Epith Cells Urine Bacteria Urine Mucus 07/18/18 07/18/18 07/18/18 15:20 15:20 15:20 WBC RBC Hgb Hct MCV MCH MCHC RDW RDW Differential Plt Count MPV Immature Gran % (Auto) Neut % (Auto) Lymph % (Auto) [place] % (Auto) Eos % (Auto) Baso % (Auto) Absolute Neuts (auto) Absolute Lymphs (auto) Total Counted Differential Comment Platelet Estimate RBC Morphology Anisocytosis PT INR APTT Specimen Type Sample Site pH Bicarbonate Actual POC Total CO2 Base Excess O2 Saturation O2 % ABG pCO2 ABG pO2 Bryant Test Respiration Rate O2 Delivery Device EPAP IPAP Blood Gas Notified Whom Blood Gas Notified Time Sodium Potassium Chloride Carbon Dioxide Anion Gap BUN Creatinine Estim Creat Clear Calc Est GFR (MDRD) Af Amer Est GFR (MDRD) Non-Af BUN/Creatinine Ratio Glucose Lactic Acid 2.1 H Calcium Magnesium Total Bilirubin AST ALT Alkaline Phosphatase Troponin I B-Natriuretic Peptide 565.7 H Total Protein Albumin Globulin Albumin/Globulin Ratio TSH 8.05 H Urine Color Urine Clarity Urine pH Ur Specific [place] Urine Protein Urine Glucose (UA) Urine Ketones Urine Occult Blood Urine Nitrite Urine Bilirubin Urine Urobilinogen Ur Leukocyte Esterase Urine RBC Urine WBC Ur Squamous Epith Cells Urine Bacteria Urine Mucus 07/18/18 07/18/18 07/18/18 16:20 18:22 20:05 WBC RBC Hgb Hct MCV MCH MCHC RDW RDW Differential Plt Count MPV Immature Gran % (Auto) Neut % (Auto) Lymph % (Auto) [place] % (Auto) Eos % (Auto) Baso % (Auto) Absolute Neuts (auto) Absolute Lymphs (auto) Total Counted Differential Comment Platelet Estimate RBC Morphology Anisocytosis PT INR APTT Specimen Type Sample Site pH Bicarbonate Actual POC Total CO2 Base Excess O2 Saturation O2 % ABG pCO2 ABG pO2 Bryant Test Respiration Rate O2 Delivery Device EPAP IPAP Blood Gas Notified Whom Blood Gas Notified Time Sodium Potassium Chloride Carbon Dioxide Anion Gap BUN Creatinine Estim Creat Clear Calc Est GFR (MDRD) Af Amer Est GFR (MDRD) Non-Af BUN/Creatinine Ratio Glucose Lactic Acid 1.9 Calcium Magnesium Total Bilirubin AST ALT Alkaline Phosphatase Troponin I 0.046 H B-Natriuretic Peptide Total Protein Albumin Globulin Albumin/Globulin Ratio TSH Urine Color Yellow Urine Clarity Clear Urine pH 5.0 Ur Specific [place] 1.015 Urine Protein Negative Urine Glucose (UA) Normal Urine Ketones Negative Urine Occult Blood Negative Urine Nitrite Negative Urine Bilirubin Negative Urine Urobilinogen Normal Ur Leukocyte Esterase Negative Urine RBC 0 SEEN Urine WBC 0 SEEN Ur Squamous Epith Cells 0 SEEN Urine Bacteria 0 SEEN Urine Mucus 0 SEEN 07/18/18 07/19/18 07/19/18 21:20 06:15 09:42 WBC RBC Hgb Hct MCV MCH MCHC RDW RDW Differential Plt Count MPV Immature Gran % (Auto) Neut % (Auto) Lymph % (Auto) [place] % (Auto) Eos % (Auto) Baso % (Auto) Absolute Neuts (auto) Absolute Lymphs (auto) Total Counted Differential Comment Platelet Estimate RBC Morphology Anisocytosis PT INR APTT Specimen Type ART Sample Site R Radial pH 7.41 Bicarbonate Actual 26.2 H POC Total CO2 27 Base Excess 2 O2 Saturation 95 O2 % 50 ABG pCO2 40.9 ABG pO2 74 L Bryant Test POS Respiration Rate 12 O2 Delivery Device Bi / C PAP EPAP 6 IPAP 10 Blood Gas Notified Whom HOSP Blood Gas Notified Time 935 Sodium 142 Potassium 3.3 L Chloride 104 Carbon Dioxide 27.0 Anion Gap 11 BUN 26 H Creatinine 1.89 H Estim Creat Clear Calc 18.76 Est GFR (MDRD) Af Amer 33 L Est GFR (MDRD) Non-Af 28 L BUN/Creatinine Ratio 13.8 Glucose 235 H Lactic Acid Calcium 7.7 L Magnesium 2.4 Total Bilirubin AST ALT Alkaline Phosphatase Troponin I 0.041 B-Natriuretic Peptide Total Protein Albumin Globulin Albumin/Globulin Ratio TSH Urine Color Urine Clarity Urine pH Ur Specific [place] Urine Protein Urine Glucose (UA) Urine Ketones Urine Occult Blood Urine Nitrite Urine Bilirubin Urine Urobilinogen Ur Leukocyte Esterase Urine RBC Urine WBC Ur Squamous Epith Cells Urine Bacteria Urine Mucus POC Glucose 07/19/18 07/19/18 07:01 01:57 POC Glucose 221 H 259 H Clinical Impression(s) from Imaging Studies Chest X-Ray 07/18/18 14:30 IMPRESSION: Bilateral pleural effusions with bibasilar atelectasis and/or infiltrate superimposed on CHF. Electronically Signed: David Santamaria MD at 14:54 EST Tel [phone], Service support , Medical Necessity - Tobacco Use Smoking Status: Former smoker Tobacco Use: Non-smoker Assessment/Plan All Active Problems (Last Updated 07/18/18 @ 16:53 by Neil Villagran DO) CHF (congestive heart failure) (Acute) (HFpEF) heart failure with preserved ejection fraction (Acute) This is a 72 years old female patient admitted because of worsening shortness of breath, found to have acute on chronic diastolic CHF, recurrent bilateral pleural effusion more on the right side as well as worsening kidney function compatible with acute kidney injury on top of stage III chronic kidney disease. #1 acute on chronic diastolic CHF: Chest x-ray reviewed, doubt pneumonia. She is on IV Lasix. She had 2D echocardiogram on June, that revealed ejection fraction of 65%, moderately enlarged left atrium, mild aortic stenosis, RVSP of 47, other findings reviewed. Patient was admitted around 1 week ago for the same problem, with bilateral pleural effusion, underwent right and left thoracentesis and she was discharged to residential facility on oxygen. This time, patient is dyspneic and tachypneic, on BiPAP. ABG revealed pH of 7.41, PCO2 of 40 and PO2 of 74. CBC and BMP reviewed. Plan: Continue IV Lasix, continue BiPAP, hold Eliquis as patient may need to go for thoracentesis again, repeat CBC and BMP tomorrow morning, chest physiotherapy, incentive spirometer, PT OT evaluation and treatment. #2 recurrent/worsening bilateral pleural effusion: It is more on the right side. Recurrent, likely due to transudative effusion secondary to CHF. During the last admission last week, she had both left and right thoracentesis, now fluid is reaccumulating. Plan: Continue diuresis, BiPAP, hold Eliquis, PT, PTT and INR, thoracentesis on the right side in 24-48 hours after stopping the Eliquis. #3 acute on chronic hypoxic respiratory failure: Patient has been on oxygen at home at 3 L. At this time, she is on BiPAP. It is multifactorial secondary to CHF and bilateral pleural effusion. ABG reviewed as above. Plan to continue BiPAP for now. #4 acute kidney injury on top of stage III chronic kidney disease: Her creatinine has been around 1-1.2 during June,, GFR always has been less than 60. Admission creatinine was 1.73, it is up from her baseline. Today's creatinine is 1.89, getting worse because of IV diuresis. Plan: Repeat BMP tomorrow morning. #5 chronic atrial fibrillation: EKG reviewed, revealed wide QRS, right bundle branch block, tachycardia, no acute changes compared to EKG from [place], 2018. Troponin is minimally elevated, trending down, likely due to heart strain secondary to CHF. She is not on any rate control medicine, on Eliquis. Plan: Start Coreg 3.25 twice daily, hold Eliquis for thoracentesis. #6 CAD status post CABG: EKG reviewed as above, troponins trending down. Hold Eliquis, start Coreg as above. #7 type 2 diabetes mellitus: Continue ADA diet, sliding scale. #8 chronic anemia/thrombocytopenia: Normocytic anemia, baseline hemoglobin is around 8-11 g/dL, today's hemoglobin is 10.3 g etc., stable at baseline. No evidence of active bleeding. Platelet count is stable, no bleeding. Plan: PT, PTT, INR, will check serum iron, TIBC, ferritin, repeat CBC tomorrow morning. #9 DVT prophylaxis: SCDs. Hold Eliquis. This note was generated with [employer] dictation software. It may contain incorrect words, spelling, and punctuation that were not noted in checking the note before signing. Code Visit Inpatient E&M: 75537 Subs Hosp L3
--- NOTE | 2018-07-19 10:37 | PN_ITS ---
Patient Problems: Active and Suspected Problems (Last Updated 07/18/18 @ 16:53 by Neil Villagran DO) (HFpEF) heart failure with preserved ejection fraction (Acute) Subjective: Chief complaint: Follow-up after admission for acute on chronic diastolic CHF, acute on chronic hypoxic respiratory failure, recurrent bilateral pleural eff usion and acute kidney injury on top of stage III chronic kidney disease. Patient seen and examined. No acute events overnight. This morning, she was more short of breath, dyspneic and tachypneic, started on BiPAP. Patient is not able to provide good history. She did mention that her breathing is the same compared to yesterday. She complained of cough, no sputum. Denies chest pain. She is afebrile, tachycardic, blood pressure stable, pulse ox is 95% on BiPAP. - Physical Exam General: Alert, Cooperative, - - Dyspneic, tachypneic, short of breath. HEENT: Atraumatic, PERRLA, EOMI Oral: Moist Mucosa, No Gingival or Mucosal Lesions/ Ulcerations Neck: Supple, No JVD, Negative Carotid Bruits, Trachea Midline, Thyroid Normal Size and Texture Lungs: No wheeze, Diminished, Rhonchi, Short of Breath, Tachypneic, - - Absent breath sounds on the right base, decreased breath sounds on the other dong, rhonchi. Cardiovascular: Regular rate, Regular Rhythm, Normal S1, Normal S2, PMI Normal, Tachycardic Abdomen: Bowel Sounds Present, Soft, Non Tender, Non-Distended, No Hepato- splenomegaly Extremities: No clubbing, No cyanosis, Edema Skin: No rashes, No breakdown Lymphatic: No Cervical, Supraclavicular, or Inguinal Adenopathy Neurological: Cranial nerves II-XII grossly intact, Neuro grossly intact Psych/Mental Status: Flat Affect Vital Signs Temp Pulse Resp BP Pulse Ox 98.6 F 113 H 20 H 125/72 H 96 07/19/18 10:13 07/19/18 10:13 07/19/18 10:13 07/19/18 10:13 07/19/18 10:13 Oxygen Flow Rate (L/min) 50 Oxygen Delivery Method Bi-pap Weight: 112 lb 3.445 oz Body Mass Index (BMI) 21.9 Intake and Output for Last 24 Hours 07/17/18 07/18/18 07/19/18 23:59 23:59 23:59 Intake Total 100 / 100 50 / 50 Balance 100 / 100 50 / 50 Microbiology Past 72 Hours 07/18/18 14:40 Influenza Types A,B Direct FA ([facility]) - Final Mucosa - Nose Laboratory Tests Past 24 Hrs 07/18/18 07/18/18 07/18/18 15:20 15:20 15:20 WBC 7.7 RBC 3.50 L Hgb 10.3 L Hct 33.2 L MCV 94.9 MCH 29.4 MCHC 31.0 L RDW 17.3 H RDW Differential 60.5 H Plt Count 112 L MPV 11.6 Immature Gran % (Auto) 1.000 H Neut % (Auto) 85.9 H Lymph % (Auto) 6.1 L [place] % (Auto) 4.9 Eos % (Auto) 1.6 Baso % (Auto) 0.5 Absolute Neuts (auto) 6.6 Absolute Lymphs (auto) 0.47 L Total Counted Not Reportable Differential Comment Platelet Estimate SLT DEC RBC Morphology N CHROM Anisocytosis 1+ PT 15.0 H INR 1.2 APTT 27.3 Specimen Type Sample Site pH Bicarbonate Actual POC Total CO2 Base Excess O2 Saturation O2 % ABG pCO2 ABG pO2 Bryant Test Respiration Rate O2 Delivery Device EPAP IPAP Blood Gas Notified Whom Blood Gas Notified Time Sodium 139 Potassium 3.4 L Chloride 102 Carbon Dioxide 29.0 Anion Gap 8 BUN 24 H Creatinine 1.73 H Estim Creat Clear Calc 20.49 Est GFR (MDRD) Af Amer 37 L Est GFR (MDRD) Non-Af 31 L BUN/Creatinine Ratio 13.9 Glucose 143 H Lactic Acid Calcium 7.9 L Magnesium Total Bilirubin 0.40 AST 21 ALT 13 Alkaline Phosphatase 127 H Troponin I 0.050 H B-Natriuretic Peptide Total Protein 6.2 L Albumin 2.2 L Globulin 4.0 Albumin/Globulin Ratio 0.6 L TSH Urine Color Urine Clarity Urine pH Ur Specific [place] Urine Protein Urine Glucose (UA) Urine Ketones Urine Occult Blood Urine Nitrite Urine Bilirubin Urine Urobilinogen Ur Leukocyte Esterase Urine RBC Urine WBC Ur Squamous Epith Cells Urine Bacteria Urine Mucus 07/18/18 07/18/18 07/18/18 15:20 15:20 15:20 WBC RBC Hgb Hct MCV MCH MCHC RDW RDW Differential Plt Count MPV Immature Gran % (Auto) Neut % (Auto) Lymph % (Auto) [place] % (Auto) Eos % (Auto) Baso % (Auto) Absolute Neuts (auto) Absolute Lymphs (auto) Total Counted Differential Comment Platelet Estimate RBC Morphology Anisocytosis PT INR APTT Specimen Type Sample Site pH Bicarbonate Actual POC Total CO2 Base Excess O2 Saturation O2 % ABG pCO2 ABG pO2 Bryant Test Respiration Rate O2 Delivery Device EPAP IPAP Blood Gas Notified Whom Blood Gas Notified Time Sodium Potassium Chloride Carbon Dioxide Anion Gap BUN Creatinine Estim Creat Clear Calc Est GFR (MDRD) Af Amer Est GFR (MDRD) Non-Af BUN/Creatinine Ratio Glucose Lactic Acid 2.1 H Calcium Magnesium Total Bilirubin AST ALT Alkaline Phosphatase Troponin I B-Natriuretic Peptide 565.7 H Total Protein Albumin Globulin Albumin/Globulin Ratio TSH 8.05 H Urine Color Urine Clarity Urine pH Ur Specific [place] Urine Protein Urine Glucose (UA) Urine Ketones Urine Occult Blood Urine Nitrite Urine Bilirubin Urine Urobilinogen Ur Leukocyte Esterase Urine RBC Urine WBC Ur Squamous Epith Cells Urine Bacteria Urine Mucus 07/18/18 07/18/18 07/18/18 16:20 18:22 20:05 WBC RBC Hgb Hct MCV MCH MCHC RDW RDW Differential Plt Count MPV Immature Gran % (Auto) Neut % (Auto) Lymph % (Auto) [place] % (Auto) Eos % (Auto) Baso % (Auto) Absolute Neuts (auto) Absolute Lymphs (auto) Total Counted Differential Comment Platelet Estimate RBC Morphology Anisocytosis PT INR APTT Specimen Type Sample Site pH Bicarbonate Actual POC Total CO2 Base Excess O2 Saturation O2 % ABG pCO2 ABG pO2 Bryant Test Respiration Rate O2 Delivery Device EPAP IPAP Blood Gas Notified Whom Blood Gas Notified Time Sodium Potassium Chloride Carbon Dioxide Anion Gap BUN Creatinine Estim Creat Clear Calc Est GFR (MDRD) Af Amer Est GFR (MDRD) Non-Af BUN/Creatinine Ratio Glucose Lactic Acid 1.9 Calcium Magnesium Total Bilirubin AST ALT Alkaline Phosphatase Troponin I 0.046 H B-Natriuretic Peptide Total Protein Albumin Globulin Albumin/Globulin Ratio TSH Urine Color Yellow Urine Clarity Clear Urine pH 5.0 Ur Specific [place] 1.015 Urine Protein Negative Urine Glucose (UA) Normal Urine Ketones Negative Urine Occult Blood Negative Urine Nitrite Negative Urine Bilirubin Negative Urine Urobilinogen Normal Ur Leukocyte Esterase Negative Urine RBC 0 SEEN Urine WBC 0 SEEN Ur Squamous Epith Cells 0 SEEN Urine Bacteria 0 SEEN Urine Mucus 0 SEEN 01/09/19 01/10/19 01/10/19 21:20 06:15 09:42 WBC RBC Hgb Hct MCV MCH MCHC RDW RDW Differential Plt Count MPV Immature Gran % (Auto) Neut % (Auto) Lymph % (Auto) [place] % (Auto) Eos % (Auto) Baso % (Auto) Absolute Neuts (auto) Absolute Lymphs (auto) Total Counted Differential Comment Platelet Estimate RBC Morphology Anisocytosis PT INR APTT Specimen Type ART Sample Site R Radial pH 7.41 Bicarbonate Actual 26.2 H POC Total CO2 27 Base Excess 2 O2 Saturation 95 O2 % 50 ABG pCO2 40.9 ABG pO2 74 L Bryant Test POS Respiration Rate 12 O2 Delivery Device Bi / C PAP EPAP 6 IPAP 10 Blood Gas Notified Whom HOSP Blood Gas Notified Time 935 Sodium 142 Potassium 3.3 L Chloride 104 Carbon Dioxide 27.0 Anion Gap 11 BUN 26 H Creatinine 1.89 H Estim Creat Clear Calc 18.76 Est GFR (MDRD) Af Amer 33 L Est GFR (MDRD) Non-Af 28 L BUN/Creatinine Ratio 13.8 Glucose 235 H Lactic Acid Calcium 7.7 L Magnesium 2.4 Total Bilirubin AST ALT Alkaline Phosphatase Troponin I 0.041 B-Natriuretic Peptide Total Protein Albumin Globulin Albumin/Globulin Ratio TSH Urine Color Urine Clarity Urine pH Ur Specific [place] Urine Protein Urine Glucose (UA) Urine Ketones Urine Occult Blood Urine Nitrite Urine Bilirubin Urine Urobilinogen Ur Leukocyte Esterase Urine RBC Urine WBC Ur Squamous Epith Cells Urine Bacteria Urine Mucus POC Glucose 07/19/18 07/19/18 07:01 01:57 POC Glucose 221 H 259 H Clinical Impression(s) from Imaging Studies Chest X-Ray 07/18/18 14:30 IMPRESSION: Bilateral pleural effusions with bibasilar atelectasis and/or infiltrate superimposed on CHF. Electronically Signed: David Santamaria MD at 14:54 EST Tel [phone], Service support , Medical Necessity - Tobacco Use Smoking Status: Former smoker Tobacco Use: Non-smoker Assessment/Plan All Active Problems (Last Updated 07/18/18 @ 16:53 by Neil Villagran DO) CHF (congestive heart failure) (Acute) (HFpEF) heart failure with preserved ejection fraction (Acute) This is a 72 years old female patient admitted because of worsening shortness of breath, found to have acute on chronic diastolic CHF, recurrent bilateral pleural effusion more on the right side as well as worsening kidney function compatible with acute kidney injury on top of stage III chronic kidney disease. #1 acute on chronic diastolic CHF: Chest x-ray reviewed, doubt pneumonia. She is on IV Lasix. She had 2D echocardiogram on June, that revealed ejection fraction of 65%, moderately enlarged left atrium, mild aortic stenosis, RVSP of 47, other findings reviewed. Patient was admitted around 1 week ago for the same problem, with bilateral pleural effusion, underwent right and left thoracentesis and she was discharged to custodial facility on oxygen. This time, patient is dyspneic and tachypneic, on BiPAP. ABG revealed pH of 7.41, PCO2 of 40 and PO2 of 74. CBC and BMP reviewed. Plan: Continue IV Lasix, continue BiPAP, hold Eliquis as patient may need to go for thoracentesis again, repeat CBC and BMP tomorrow morning, chest physiotherapy, incentive spirometer, PT OT evaluation and treatment. #2 recurrent/worsening bilateral pleural effusion: It is more on the right side. Recurrent, likely due to transudative effusion secondary to CHF. During the last admission last week, she had both left and right thoracentesis, now fluid is reaccumulating. Plan: Continue diuresis, BiPAP, hold Eliquis, PT, PTT and I NR, thoracentesis on the right side in 24-48 hours after stopping the Eliquis. #3 acute on chronic hypoxic respiratory failure: Patient has been on oxygen at home at 3 L. At this time, she is on BiPAP. It is multifactorial secondary to CHF and bilateral pleural effusion. ABG reviewed as above. Plan to continue BiPAP for now. #4 acute kidney injury on top of stage III chronic kidney disease: Her creatinine has been around 1-1.2 during June,, GFR always has been less than 60. Admission creatinine was 1.73, it is up from her baseline. Today's creatinine is 1.89, getting worse because of IV diuresis. Plan: Repeat BMP tomorrow morning. #5 chronic atrial fibrillation: EKG reviewed, revealed wide QRS, right bundle branch block, tachycardia, no acute changes compared to EKG from June,. Troponin is minimally elevated, trending down, likely due to heart strain secondary to CHF. She is not on any rate control medicine, on Eliquis. Plan: Start Coreg 3.25 twice daily, hold Eliquis for thoracentesis. #6 CAD status post CABG: EKG reviewed as above, troponins trending down. Hold Eliquis, start Coreg as above. #7 type 2 diabetes mellitus: Continue ADA diet, sliding scale. #8 chronic anemia/thrombocytopenia: Normocytic anemia, baseline hemoglobin is around 8-11 g/dL, today's hemoglobin is 10.3 g etc., stable at baseline. No evidence of active bleeding. Platelet count is stable, no bleeding. Plan: PT, PTT, INR, will check serum iron, TIBC, ferritin, repeat CBC tomorrow morning. #9 DVT prophylaxis: SCDs. Hold Eliquis. This note was generated with Zuli dictation software. It may contain incorrect words, spelling, and punctuation that were not noted in checking the note before signing. Code Visit Inpatient E&M: 28605 [facility] Hosp L3
[2018-07-19 11:06] LABS: International Normalized Ratio 1.4; Prothrombin Time (Protime)PT. 17.1 SECONDS (11.7-14.9)
[2018-07-19 11:35] LABS: Ferritin 133 ng/mL (8-252); Iron 39 ug/dL (50-170); Iron Binding Capacity,Total 316 ug/dL (250-450); PERCENT IRON SATURATION 12.3 % (15.0-55.0)
[2018-07-19 12:00] LABS: Bedside Glucose 162 mg/dL (70-110)
[2018-07-19] MEDS: Miconazole Nitrate Cream 1 APPLIC TOPICAL ×2 (15:25→21:32)
[2018-07-19 16:41] LABS: Bedside Glucose 209 mg/dL (70-110)
[2018-07-19 22:51] LABS: Bedside Glucose 135 mg/dL (70-110)
[2018-07-20] VITALS (25 sets, daily range): BP systolic 98–146; BP diastolic 62–82; PULSE 109–118; RESP 12–27; TEMP 36.5–36.9; O2SAT 90–98
[2018-07-20] MEDS: Ipratropium/Albuterol Sulfate 3 ML AMPUL.NEB INHALATION ×7 (01:15→23:07)
--- NOTE | 2018-07-20 04:05 | CPS ---
pt declines bipap
[2018-07-20] MEDS: Miconazole Nitrate Cream 1 APPLIC TOPICAL ×3 (04:52→22:50)
[2018-07-20 06:47] LABS: Basophil% 0.8 % (0-1); Eosinophils% 1.8 % (0-5); Hematocrit 33.7 % (37-47); Hemoglobin 10.4 g/dl (12.0-15.0); Lymphocyte % 9.2 % (19-41); Mean Corp Hgb Conc 30.9 g/gl (32-36); Mean Corpuscular Hgb 29.9 pg (27.0-32.0); Mean Corpuscular Volume 96.8 fL (81-99); Mean Platelet Vol. 10.3 fl (6.2-12.0); Monocyte% 6.8 % (0-10); Neutrophil % 80.9 % (47-70); Platelet Count 154 K/mm3 (150-450); RBC Distribution Width CV 17.4 % (11.6-14.6); RBC Distribution Width SD 62.1 fl (35.1-43.9); Red Blood Count 3.48 M/mm3 (4.2-5.4); White Blood Count 6.6 K/mm3 (4.4-11.0)
[2018-07-20 06:48] LABS: Absolute Lymphocyte Count 0.61 X10^3/ul (0.83-4.51); Absolute Neutrophil Count 5.4 X10^3/uL (2.0-7.7); Basophil# 0.05 X10^3/uL; Eosinophil# 0.12 X10^3/uL; Lymphocyte # 0.61 X10^3/ul (4.0); Monocyte# 0.45 X10^3/uL; Neutrophil # 5.38 X10^3/uL (2.7-7.7); POSITIVE COUNT NO; POSITIVE DIFFERENTIAL NO; POSITIVE MORPHOLOGY NO
[2018-07-20 06:49] LABS: Anion Gap 9 (5-15); BUN 28 mg/dL (7-18); BUN/Creat Ratio 15.3 RATIO (10-20); Calcium,Total 8.2 mg/dL (8.5-10.1); Chloride 104 mmol/L (98-107); Creatinine, Serum 1.83 mg/dL (0.55-1.02); EST Glomerular Filtration Rate 29 mL/min (>60); Est Glom Filt Rate - Afr Amer 35 mL/min (>60); Estimated Creatinine Clearance 19.37 ml/min; Glucose 171 mg/dL (74-106); Potassium 3.6 mmol/L (3.5-5.1); Sodium Level 141 mmol/L (136-145)
[2018-07-20 07:10] LABS: Bedside Glucose 151 mg/dL (70-110)
--- NOTE | 2018-07-20 08:17 | PCM.PROGNOTE ---
Patient Problems: Active and Suspected Problems (Last Updated 07/18/18 @ 16:53 by Neil Villagran DO) (HFpEF) heart failure with preserved ejection fraction (Acute) Subjective: Chief complaint: Follow-up after admission for acute on chronic diastolic CHF, acute on chronic hypoxic respiratory failure, recurrent bilateral pleural effusion and acute kidney injury on top of stage III chronic kidney disease. Patient seen and examined. No acute events overnight. At this time, she is off BiPAP. She is a poor informant. She mentioned that her breathing is a little bit better than yesterday. Denies chest pain. She is afebrile, heart rate has been around 110, blood pressure stable, pulse ox is 98% on 5 L. - Physical Exam General: Alert, Cooperative, - - Moderately short of breath. HEENT: Atraumatic, PERRLA, EOMI, Normocephalic Oral: Moist Mucosa, No Gingival or Mucosal Lesions/ Ulcerations Neck: Supple, No JVD, Negative Carotid Bruits, Trachea Midline, Thyroid Normal Size and Texture Lungs: No wheeze, Rhonchi, Short of Breath, - - Absent breath sounds on the right base with dull percussion noted, bilateral rhonchi. Cardiovascular: Normal S1, Normal S2, No murmurs, No Ectopic Activity, PMI Normal, Tachycardic Abdomen: Bowel Sounds Present, Soft, Non Tender, Non-Distended, No Hepato-splenomegaly Extremities: No clubbing, No cyanosis, Edema Skin: No rashes, No breakdown Lymphatic: No Cervical, Supraclavicular, or Inguinal Adenopathy Neurological: Cranial nerves II-XII grossly intact, Neuro grossly intact Psych/Mental Status: Flat Affect Vital Signs Temp Pulse Resp BP Pulse Ox 97.8 F 113 H 24 H 105/72 98 07/20/18 04:50 07/20/18 07:24 07/20/18 05:10 07/20/18 04:50 07/20/18 04:50 Oxygen Flow Rate (L/min) 5 Oxygen Delivery Method Nasal Cannula Weight: 113 lb 8.609 oz Body Mass Index (BMI) 21.9 Intake and Output for Last 24 Hours 07/18/18 07/19/18 07/20/18 23:59 23:59 23:59 Intake Total 100 / 100 250 / 250 Balance 100 / 100 250 / 250 Microbiology Past 72 Hours 07/18/18 14:40 Influenza Types A,B Direct FA ([facility]) - Final Mucosa - Nose Laboratory Tests Past 24 Hrs 07/19/18 07/19/18 07/19/18 06:15 09:42 10:45 WBC RBC Hgb Hct MCV MCH MCHC RDW RDW Differential Plt Count MPV Immature Gran % (Auto) Neut % (Auto) Lymph % (Auto) [place] % (Auto) Eos % (Auto) Baso % (Auto) Absolute Neuts (auto) Absolute Lymphs (auto) Total Counted PT 17.1 H INR 1.4 APTT 34.0 Specimen Type ART Sample Site R Radial pH 7.41 Bicarbonate Actual 26.2 H POC Total CO2 27 Base Excess 2 O2 Saturation 95 O2 % 50 ABG pCO2 40.9 ABG pO2 74 L Bryant Test POS Respiration Rate 12 O2 Delivery Device Bi / C PAP EPAP 6 IPAP 10 Blood Gas Notified Whom HOSP Blood Gas Notified Time 935 Sodium Potassium Chloride Carbon Dioxide Anion Gap BUN Creatinine Estim Creat Clear Calc Est GFR (MDRD) Af Amer Est GFR (MDRD) Non-Af BUN/Creatinine Ratio Glucose Calcium Iron 39 L TIBC 316 Iron Saturation 12.3 L Transferrin Ferritin 133 07/20/18 07/20/18 07/20/18 05:35 05:35 05:35 WBC 6.6 RBC 3.48 L Hgb 10.4 L Hct 33.7 L MCV 96.8 MCH 29.9 MCHC 30.9 L RDW 17.4 H RDW Differential 62.1 H Plt Count 154 MPV 10.3 Immature Gran % (Auto) 0.500 Neut % (Auto) 80.9 H Lymph % (Auto) 9.2 L [place] % (Auto) 6.8 Eos % (Auto) 1.8 Baso % (Auto) 0.8 Absolute Neuts (auto) 5.4 Absolute Lymphs (auto) 0.61 L Total Counted Not Reportable PT INR APTT Specimen Type Sample Site pH Bicarbonate Actual POC Total CO2 Base Excess O2 Saturation O2 % ABG pCO2 ABG pO2 Bryant Test Respiration Rate O2 Delivery Device EPAP IPAP Blood Gas Notified Whom Blood Gas Notified Time Sodium 141 Potassium 3.6 Chloride 104 Carbon Dioxide 28.0 Anion Gap 9 BUN 28 H Creatinine 1.83 H Estim Creat Clear Calc 19.37 Est GFR (MDRD) Af Amer 35 L Est GFR (MDRD) Non-Af 29 L BUN/Creatinine Ratio 15.3 Glucose 171 H Calcium 8.2 L Iron TIBC Iron Saturation Transferrin Pending Ferritin POC Glucose 07/20/18 07/19/18 07/19/18 06:55 21:30 16:27 POC Glucose 151 H 135 H 209 H 07/19/18 11:50 POC Glucose 162 H Medical Necessity - Tobacco Use Smoking Status: Former smoker Tobacco Use: Non-smoker Assessment/Plan All Active Problems (Last Updated 07/18/18 @ 16:53 by Neil Villagran DO) CHF (congestive heart failure) (Acute) (HFpEF) heart failure with preserved ejection fraction (Acute) This is a 72 years old female patient admitted because of worsening shortness of breath, found to have acute on chronic diastolic CHF, recurrent bilateral pleural effusion more on the right side as well as worsening kidney function compatible with acute kidney injury on top of stage III chronic kidney disease. #1 acute on chronic diastolic CHF: She is on IV Lasix. Symptoms started to improve, she is maintaining pulse ox on 5 L by nasal cannula. She is off BiPAP. She is not on BAILEE inhibitors because of chronic kidney disease. She remained in A. fib, rate has been around 110. She had 2D echocardiogram on June, that revealed ejection fraction of 65%, moderately enlarged left atrium, mild aortic stenosis, RVSP of 47, other findings reviewed. Serum creatinine remained almost the same compared to yesterday. Plan: Start Coreg for rate control, continue IV Lasix, right thoracentesis, repeat BMP tomorrow morning. #2 recurrent/worsening bilateral pleural effusion: It is more on the right side. Recurrent, likely due to transudative effusion secondary to CHF. During the last admission last week, she had both left and right thoracentesis, now fluid is reaccumulating. Eliquis held yesterday. PT, PTT and INR reviewed. Plan for right-sided thoracentesis if radiology agreed. #3 acute on chronic hypoxic respiratory failure: Patient has been on oxygen at home at 3 L. This morning, she is on 5 L, reported minimal improvement. It is multifactorial secondary to CHF and bilateral pleural effusion. Plan as above. #4 acute kidney injury on top of stage III chronic kidney disease: Her creatinine has been around 1-1.2 during June,, GFR always has been less than 60. Admission creatinine was 1.73, it is up from her baseline. Today's creatinine is 1.83, remained almost the same compared to yesterday. Plan to do BMP tomorrow morning. #5 chronic atrial fibrillation: Rate has been around 110, blood pressure stable. Eliquis held because patient will need thoracentesis as above. Plan to start Coreg for rate control. #6 CAD status post CABG: EKG reviewed as above, showed no acute ischemic changes. Troponins back to normal. We will start Coreg as above. #7 type 2 diabetes mellitus: Blood sugar has been stable. Continue ADA diet, sliding scale. #8 chronic iron deficiency anemia/thrombocytopenia: Normocytic anemia, baseline hemoglobin is around 8-11 g/dL, today's hemoglobin is 10.4 g/dL., stable at baseline. No evidence of active bleeding. Platelet count 1 54,000, back to normal. Serum iron and iron saturation are low, ferritin is normal. Plan to start iron supplement. #9 DVT prophylaxis: SCDs. Keep holding Eliquis. This note was generated with Triage dictation software. It may contain incorrect words, spelling, and punctuation that were not noted in checking the note before signing. Code Visit Inpatient E&M: 56748 Subs Hosp L2
--- NOTE | 2018-07-20 10:05 | CASEMGMT ---
SW spoke with patient and her son, Cabrera. The plan is to return to [facility] at d/c. Physician said patient is not ready for d/c and will likely be here through the weekend. SW called [facility] and let IRAIDA Denice know patient will likely be here through the weekend. No one in admissions was available to notify. SW will place a green sheet on chart in the event plans change and patient can return prior to Monday. Plan: Return to [facility] under skilled level of care. Staff to set up transport if ready over the weekend. 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
[2018-07-20] MEDS: Pantoprazole Sodium 20 MG Tablet PO (10:06)
[2018-07-20] MEDS: Calcium (Elemental) 500 MG Tablet PO ×3 (10:06→17:22)
[2018-07-20] MEDS: Insulin Lispro 100 UNIT/ML INSULN.PEN SQ ×2 (10:07→13:25)
[2018-07-20] MEDS: Carvedilol 3.125 MG TABLET PO ×2 (11:38→22:50)
[2018-07-20] MEDS: Furosemide 40 MG/4 ML Vial IV ×2 (11:39→18:03)
[2018-07-20 12:06] LABS: Bedside Glucose 197 mg/dL (70-110)
[2018-07-20] MEDS: Ferrous Sulfate 325 MG Tablet PO (13:26)
[2018-07-20 17:11] LABS: Bedside Glucose 111 mg/dL (70-110)
[2018-07-20 23:30] LABS: Bedside Glucose 114 mg/dL (70-110)
[2018-07-21] VITALS (22 sets, daily range): BP systolic 105–111; BP diastolic 67–80; PULSE 94–111; RESP 12–28; TEMP 35.8–36.6; O2SAT 91–100
[2018-07-21] MEDS: Ipratropium/Albuterol Sulfate 3 ML AMPUL.NEB INHALATION ×6 (03:02→23:36)
[2018-07-21] MEDS: Miconazole Nitrate Cream 1 APPLIC TOPICAL ×3 (06:10→21:55)
[2018-07-21 06:55] LABS: Anion Gap 9 (5-15); BUN 28 mg/dL (7-18); BUN/Creat Ratio 15.3 RATIO (10-20); Calcium,Total 8.3 mg/dL (8.5-10.1); Chloride 103 mmol/L (98-107); Creatinine, Serum 1.83 mg/dL (0.55-1.02); EST Glomerular Filtration Rate 29 mL/min (>60); Est Glom Filt Rate - Afr Amer 35 mL/min (>60); Estimated Creatinine Clearance 19.37 ml/min; Glucose 112 mg/dL (74-106); Potassium 4.2 mmol/L (3.5-5.1); Sodium Level 142 mmol/L (136-145)
[2018-07-21 07:05] LABS: Bedside Glucose 117 mg/dL (70-110)
--- NOTE | 2018-07-21 08:20 | PN_ITS ---
Patient Problems: Active and Suspected Problems (Last Updated 07/18/18 @ 16:53 by Neil Villagran DO) (HFpEF) heart failure with preserved ejection fraction (Acute) Subjective: Chief complaint: Follow-up after admission for acute on chronic diastolic CHF, acute on chronic hypoxic respiratory failure, recurrent bilateral pleural eff usion and acute kidney injury on top of stage III chronic kidney disease. Patient seen and examined. No acute events overnight. She is a poor informant. She was able to answer couple of simple questions. She has stated that her breathing is okay, has been maintaining pulse ox on 5 L. Denied chest pain or palpitations. She is afebrile, heart rate has been around 100, blood pressure stable. - Physical Exam General: Alert, Cooperative, - - Minimally short of breath. HEENT: Atraumatic, PERRLA, EOMI, Normocephalic Oral: Moist Mucosa, No Gingival or Mucosal Lesions/ Ulcerations Neck: Supple, No JVD, Negative Carotid Bruits, Trachea Midline, Thyroid Normal Size and Texture Lungs: Diminished, Rales, Rhonchi, Short of Breath, - - Absent breath sounds on the right base, scattered rhonchi. Cardiovascular: Regular rate, Regular Rhythm, Normal S1, Normal S2, PMI Normal, Tachycardic Abdomen: Bowel Sounds Present, Soft, Non Tender, Non-Distended, No Hepato- splenomegaly Extremities: No clubbing, No cyanosis, Edema Skin: No rashes, No breakdown Lymphatic: No Cervical, Supraclavicular, or Inguinal Adenopathy Neurological: Cranial nerves II-XII grossly intact, Neuro grossly intact Psych/Mental Status: Flat Affect Vital Signs Temp Pulse Resp BP Pulse Ox 97.8 F 107 H 16 105/71 91 07/21/18 06:16 07/21/18 07:46 07/21/18 07:28 07/21/18 06:16 07/21/18 07:28 Oxygen Flow Rate (L/min) 2 Oxygen Delivery Method Nasal Cannula Weight: 112 lb 10.499 oz Body Mass Index (BMI) 21.9 Intake and Output for Last 24 Hours 07/19/18 07/20/18 07/21/18 23:59 23:59 23:59 Intake Total 250 / 250 440 / 440 Balance 250 / 250 440 / 440 Microbiology Past 72 Hours 07/18/18 16:20 Urine Culture - Final Urine Catheter - Catheter Culture exhibits no growth. 07/18/18 14:55 Blood Culture - Preliminary Blood Culture (Wb) - Anticubital Left No growth in 48 hours. 07/18/18 15:20 Blood Culture - Preliminary Blood Culture (Wb) - Anticubital Left No growth in 48 hours. 07/18/18 14:40 Influenza Types A,B Direct FA ([facility]) - Final Mucosa - Nose Laboratory Tests Past 24 Hrs 07/21/18 05:43 Sodium 142 Potassium 4.2 Chloride 103 Carbon Dioxide 30.0 Anion Gap 9 BUN 28 H Creatinine 1.83 H Estim Creat Clear Calc 19.37 Est GFR (MDRD) Af Amer 35 L Est GFR (MDRD) Non-Af 29 L BUN/Creatinine Ratio 15.3 Glucose 112 H Calcium 8.3 L POC Glucose 07/21/18 07/20/18 07/20/18 07:02 22:52 16:57 POC Glucose 117 H 114 H 111 H 07/20/18 11:40 POC Glucose 197 H Medical Necessity - Tobacco Use Smoking Status: Former smoker Tobacco Use: Non-smoker Assessment/Plan All Active Problems (Last Updated 07/18/18 @ 16:53 by Neil Villagran DO) CHF (congestive heart failure) (Acute) (HFpEF) heart failure with preserved ejection fraction (Acute) This is a 72 years old female patient admitted because of worsening shortness of breath, found to have acute on chronic diastolic CHF, recurrent bilateral pleural effusion more on the right side as well as worsening kidney function compatible with acute kidney injury on top of stage III chronic kidney disease. #1 acute on chronic diastolic CHF: Remained on IV Lasix and Coreg. She reported continued slow improvement of her shortness of breath, has been maintaining pulse ox on 5 L of oxygen. She is off BiPAP. She is not on BAILEE inhibitors because of chronic kidney disease. She had 2D echocardiogram on June, that revealed ejection fraction of 65%, moderately enlarged left atrium, mild aortic stenosis, RVSP of 47, other findings reviewed. Serum creatinine remained almost the same compared to yesterday. Plan: Continue same treatment, plan for right thoracentesis on Monday. #2 recurrent/worsening bilateral pleural effusion: It is more on the right side. Recurrent, likely due to transudative effusion secondary to CHF. During the last admission last week, she had both left and right thoracentesis, now fluid is reaccumulating. Eliquis held July 19, 2018. PT, PTT and INR reviewed. Plan for right-sided thoracentesis on Monday. #3 acute on chronic hypoxic respiratory failure: Patient has been on oxygen at home at 3 L. This morning, she is on 5 L. It is multifactorial secondary to CHF and bilateral pleural effusion. Plan as above. #4 acute kidney injury on top of stage III chronic kidney disease: Her creatinine has been around 1-1.2 during June,, GFR always has been less than 60. Admission creatinine was 1.73, it is up from her baseline. Again, today's creatinine is 1.83, remained almost the same compared to yesterday. #5 chronic atrial fibrillation: Rate has been around 110, blood pressure stable. She is on Coreg for rate control, Eliquis held planning for thoracentesis on Monday. #6 CAD status post CABG: EKG reviewed as above, showed no acute ischemic changes. Troponins back to normal. Continue Coreg. #7 type 2 diabetes mellitus: Blood sugar has been stable. Continue ADA diet, sliding scale. #8 chronic iron deficiency anemia/thrombocytopenia: Normocytic anemia, baseline hemoglobin is around 8-11 g/dL, most recent hemoglobin is 10.4 g/dL., stable at baseline. No evidence of active bleeding. Platelet count 1 54,000, back to normal. Serum iron and iron saturation are low, ferritin is normal. Continue iron supplement #9 DVT prophylaxis: SCDs. Keep holding Eliquis. This note was generated with [email or web address] dictation software. It may contain incorrect words, spelling, and punctuation that were not noted in checking the note before signing. Code Visit Inpatient E&M: 42177 Subs Hosp L2
[2018-07-21] MEDS: Carvedilol 3.125 MG TABLET PO ×2 (08:25→21:55)
[2018-07-21] MEDS: Calcium (Elemental) 500 MG Tablet PO ×3 (08:25→17:02)
[2018-07-21] MEDS: Furosemide 40 MG/4 ML Vial IV ×2 (08:26→17:02)
[2018-07-21] MEDS: Pantoprazole Sodium 20 MG Tablet PO (08:26)
[2018-07-21] MEDS: 0.9% NaCl Peripheral Flush Adult/Peds IV ×2 (08:42→17:02)
[2018-07-21 11:40] LABS: Bedside Glucose 163 mg/dL (70-110)
[2018-07-21] MEDS: Ferrous Sulfate 325 MG Tablet PO (12:40)
[2018-07-21] MEDS: Insulin Lispro 100 UNIT/ML INSULN.PEN SQ (12:40)
[2018-07-21 17:11] LABS: Bedside Glucose 147 mg/dL (70-110)
[2018-07-21 20:23] LABS: Transferrin 172 mg/dL (200-370)
[2018-07-21 22:40] LABS: Bedside Glucose 180 mg/dL (70-110)
[2018-07-22] VITALS (21 sets, daily range): BP systolic 106–120; BP diastolic 70–77; PULSE 73–110; RESP 12–24; TEMP 36.2–37.2; O2SAT 50–99
[2018-07-22] MEDS: Ipratropium/Albuterol Sulfate 3 ML AMPUL.NEB INHALATION ×6 (03:44→22:29)
[2018-07-22] MEDS: Miconazole Nitrate Cream 1 APPLIC TOPICAL ×3 (06:44→23:08)
[2018-07-22 06:56] LABS: Bedside Glucose 141 mg/dL (70-110)
[2018-07-22 07:14] LABS: Absolute Lymphocyte Count 0.63 X10^3/ul (0.83-4.51); Absolute Neutrophil Count 5.3 X10^3/uL (2.0-7.7); Basophil# 0.04 X10^3/uL; Basophil% 0.6 % (0-1); Eosinophil# 0.09 X10^3/uL; Eosinophils% 1.4 % (0-5); Lymphocyte # 0.63 X10^3/ul (4.0); Lymphocyte % 9.8 % (19-41); Mean Corp Hgb Conc 30.3 g/gl (32-36); Mean Corpuscular Hgb 29.5 pg (27.0-32.0); Mean Corpuscular Volume 97.3 fL (81-99); Mean Platelet Vol. 10.3 fl (6.2-12.0); Monocyte# 0.38 X10^3/uL; Monocyte% 5.9 % (0-10); Neutrophil # 5.27 X10^3/uL (2.7-7.7); Neutrophil % 81.8 % (47-70); Platelet Count 147 K/mm3 (150-450); RBC Distribution Width CV 17.1 % (11.6-14.6); RBC Distribution Width SD 61.1 fl (35.1-43.9); Red Blood Count 3.39 M/mm3 (4.2-5.4); White Blood Count 6.4 K/mm3 (4.4-11.0)
[2018-07-22 07:17] LABS: POSITIVE COUNT NO; POSITIVE DIFFERENTIAL NO; POSITIVE MORPHOLOGY NO
[2018-07-22 07:20] LABS: Anion Gap 11 (5-15); BUN 32 mg/dL (7-18); BUN/Creat Ratio 16.4 RATIO (10-20); Calcium,Total 8.6 mg/dL (8.5-10.1); Chloride 104 mmol/L (98-107); Creatinine, Serum 1.95 mg/dL (0.55-1.02); EST Glomerular Filtration Rate 27 mL/min (>60); Est Glom Filt Rate - Afr Amer 32 mL/min (>60); Estimated Creatinine Clearance 18.18 ml/min; Glucose 151 mg/dL (74-106); Potassium 4.4 mmol/L (3.5-5.1); Sodium Level 142 mmol/L (136-145)
--- NOTE | 2018-07-22 08:36 | PN_ITS ---
Patient Problems: Active and Suspected Problems (Last Updated 07/18/18 @ 16:53 by Neil Villagran DO) (HFpEF) heart failure with preserved ejection fraction (Acute) Subjective: Chief complaint: Follow-up after admission for acute on chronic diastolic CHF, acute on chronic hypoxic respiratory failure, recurrent bilateral pleural eff usion and acute kidney injury on top of stage III chronic kidney disease. Patient seen and examined. No acute events overnight. She was started back on BiPAP, she states that her breathing is a little bit harder this morning. Denied cough or sputum production. Denied fever or chills. She remained afebrile, heart rate has been around 100, blood pressure stable. - Physical Exam General: Alert, Cooperative, No apparent distress HEENT: Atraumatic, PERRLA, EOMI, Normocephalic Oral: Moist Mucosa, No Gingival or Mucosal Lesions/ Ulcerations Neck: Supple, No JVD, Negative Carotid Bruits, Trachea Midline, Thyroid Normal Size and Texture Lungs: No wheeze, Short of Breath, - - Absent breath sounds on the right base, decreased breath sounds bilaterally, scattered rhonchi. Cardiovascular: Regular rate, Regular Rhythm, Normal S1, Normal S2, PMI Normal Abdomen: Bowel Sounds Present, Soft, Non Tender, Non-Distended, No Hepato- splenomegaly Extremities: No clubbing, No cyanosis, Edema Skin: No rashes, No breakdown Lymphatic: No Cervical, Supraclavicular, or Inguinal Adenopathy Neurological: Cranial nerves II-XII grossly intact, Neuro grossly intact Psych/Mental Status: Flat Affect Vital Signs Temp Pulse Resp BP Pulse Ox 99.0 F 106 H 18 120/77 99 07/22/18 05:50 07/22/18 08:23 07/22/18 07:12 07/22/18 05:50 07/22/18 07:12 Oxygen Flow Rate (L/min) 5 Oxygen Delivery Method Bi-pap Weight: 112 lb 10.499 oz Body Mass Index (BMI) 21.9 Intake and Output for Last 24 Hours 07/20/18 07/21/18 07/22/18 23:59 23:59 23:59 Intake Total 440 / 440 850 / 850 Balance 440 / 440 850 / 850 Microbiology Past 72 Hours 07/18/18 16:20 Urine Culture - Final Urine Catheter - Catheter Culture exhibits no growth. 07/18/18 14:55 Blood Culture - Preliminary Blood Culture (Wb) - Anticubital Left No growth in 48 hours. 07/18/18 15:20 Blood Culture - Preliminary Blood Culture (Wb) - Anticubital Left No growth in 48 hours. Laboratory Tests Past 24 Hrs 07/20/18 07/22/18 07/22/18 05:35 05:59 05:59 WBC 6.4 RBC 3.39 L Hgb 10.0 L Hct 33.0 L MCV 97.3 MCH 29.5 MCHC 30.3 L RDW 17.1 H RDW Differential 61.1 H Plt Count 147 L MPV 10.3 Immature Gran % (Auto) 0.500 Neut % (Auto) 81.8 H Lymph % (Auto) 9.8 L Cecil % (Auto) 5.9 Eos % (Auto) 1.4 Baso % (Auto) 0.6 Absolute Neuts (auto) 5.3 Absolute Lymphs (auto) 0.63 L Total Counted Not Reportable Sodium 142 Potassium 4.4 Chloride 104 Carbon Dioxide 27.0 Anion Gap 11 BUN 32 H Creatinine 1.95 H Estim Creat Clear Calc 18.18 Est GFR (MDRD) Af Amer 32 L Est GFR (MDRD) Non-Af 27 L BUN/Creatinine Ratio 16.4 Glucose 151 H Calcium 8.6 Transferrin 172 L POC Glucose 07/22/18 07/21/18 07/21/18 06:52 22:01 17:00 POC Glucose 141 H 180 H 147 H 07/21/18 11:31 POC Glucose 163 H Medical Necessity - Tobacco Use Smoking Status: Former smoker Tobacco Use: Non-smoker Assessment/Plan All Active Problems (Last Updated 07/18/18 @ 16:53 by Neil Villagran DO) CHF (congestive heart failure) (Acute) (HFpEF) heart failure with preserved ejection fraction (Acute) This is a 72 years old female patient admitted because of worsening shortness of breath, found to have acute on chronic diastolic CHF, recurrent bilateral pleural effusion more on the right side as well as worsening kidney function compatible with acute kidney injury on top of stage III chronic kidney disease. #1 acute on chronic diastolic CHF: Remained on IV Lasix and Coreg. This morn ing, she reported mild worsening of her shortness of breath, started back on BiPAP. She is not on BAILEE inhibitors because of chronic kidney disease. She had 2D echocardiogram on June, that revealed ejection fraction of 65%, moderately enlarged left atrium, mild aortic stenosis, RVSP of 47, other findings reviewed. Serum creatinine started to go up. Plan: DC IV Lasix, start oral Lasix, right-sided thoracentesis tomorrow. I spoke with the patient multiple times on her CODE STATUS and I tried to explain to her different types of CODE STATUS and every time, she is stated that she wants full code. At one time, I spoke with the patient's son who was at the bedside and he mentioned that it is totally up to her. I am not sure if the patient is understanding what is the CODE STATUS about and without the different types of CODE STATUS. #2 recurrent/worsening bilateral pleural effusion: It is more on the right side. Recurrent, likely due to transudative effusion secondary to CHF. During the last admission last week, she had both left and right thoracentesis, now fluid is reaccumulating. Jorge L held July 19, 2018. PT, PTT and INR reviewed. Plan for right-sided thoracentesis tomorrow. #3 acute on chronic hypoxic respiratory failure: She is back on BiPAP. Patient has been on oxygen at home at 3 L. It is multifactorial secondary to CHF and enrique ateral pleural effusion. Plan as above. #4 acute kidney injury on top of stage III chronic kidney disease: It is probably because of IV Lasix. Her creatinine has been around 1-1.2 during June,, GFR always has been less than 60. Admission creatinine was 1.73, it is up from her baseline. Today's creatinine is 1.95, it is worsening. Plan: DC IV Lasix, start oral Lasix, repeat BMP tomorrow morning. #5 chronic atrial fibrillation: Rate has been around 110, blood pressure stable. She is on Coreg for rate control, Jorge L held planning for thoracentesis on Monday. #6 CAD status post CABG: EKG reviewed as above, showed no acute ischemic changes. Troponins back to normal. Continue Coreg. #7 type 2 diabetes mellitus: Blood sugar has been stable. Continue ADA diet, sliding scale. #8 chronic iron deficiency anemia/thrombocytopenia: Normocytic anemia, baseline hemoglobin is around 8-11 g/dL, today's hemoglobin is 10 g/dL., stable at baseline. No evidence of active bleeding. Platelet count stable. Serum iron and iron saturation are low, ferritin is normal. Continue iron supplement #9 DVT prophylaxis: SCDs. Keep holding Eliquis. This note was generated with [email or web address] dictation software. It may contain incorrect words, spelling, and punctuation that were not noted in checking the note before signing. Code Visit Inpatient E&M: 00335 Subs Hosp L2
[2018-07-22] MEDS: Pantoprazole Sodium 20 MG Tablet PO (09:42)
[2018-07-22] MEDS: Furosemide 40 MG Tablet PO (09:42)
[2018-07-22] MEDS: Calcium (Elemental) 500 MG Tablet PO (09:42)
[2018-07-22] MEDS: Carvedilol 3.125 MG TABLET PO (09:42)
--- NOTE | 2018-07-22 11:28 | CPS ---
FIO2 decreased to 50%....sat 93%
[2018-07-22 12:41] LABS: Bedside Glucose 186 mg/dL (70-110)
[2018-07-22 16:50] LABS: Bedside Glucose 140 mg/dL (70-110)
[2018-07-22 23:40] LABS: Bedside Glucose 127 mg/dL (70-110)
[2018-07-23] VITALS (18 sets, daily range): BP systolic 88–115; BP diastolic 56–72; PULSE 96–108; RESP 12–20; TEMP 36.4–36.7; O2SAT 93–100
--- NOTE | 2018-07-23 | FLU_PTH ---
PATIENT: JENNIFER CANTRELL LOC: PCU U#:[id number] AGE/SX: 72/F ROOM: [facility] RE07/18/[address]: Dr. Luis Daniel Lee MD : 1945 BED: 1 DIS: 07/24/2018 SPEC #: [id number] RECD: 07/23/18 14:43 STATUS: JADA REQ #: [id number] LUDMILA: 07/23/18 00:[address]: Luis Daniel Lee DEPT: CYTOLOGY RECD BY: Gabino Foster ENTERED: 07/23/18 14:44 SP TYPE: Fluid OTHR DR: Dr. Neil Villagran, DO Dr. Gianni Nava DO Tissues: THORACIC FLUID Procedures: Pap Stain (control) Special Stain Group II Surgery Specimen Level IV Cell Block Cytospin Fluid HEADER OPERATION: Ultrasound-guided right thoracentesis PRE-OP DIAGNOSIS: Right pleural effusion TISSUE SUBMITTED: Thoracentesis fluid for cytology DIAGNOSIS CYTOLOGY Thoracentesis fluid for cytology (cytospin and cell block): Negative for malignant cells. SJ:emmanuel 07/24/18 COMMENT Please make reference to previous specimen ([id number]) thoracentesis fluid for cytology with diagnosis of negative for malignant cells. CYTOLOGY STUDY Slides are reviewed. CYTOLOGY GROSS Received is 110 ml of yellow cloudy fluid labeled with the patient's name and and designated per the requisition as thoracentesis. Submitted for cytology preparation including cell block. 07/23/18 TC: CPT: 35844, 24298
--- NOTE | 2018-07-23 01:30 | US_ITS ---
PROCEDURE: ULTRASOUND GUIDED THORACENTESIS. DATE: 2018. INDICATION: Female, 72 years old. Right pleural effusion. PHYSICIAN: David Santamaria M.D. PROCEDURE: The risks, benefits, and alternatives to the procedure were explained to the patient. The specific risks of bleeding, infection, and pneumothorax requiring chest tube insertion were discussed and accepted. Written informed consent was obtained. Ultrasonographic evaluation of the right lower pleural space was carried out. An adequate pocket was identified. The patient was placed in the sitting, upright position. The overlying skin was prepped and draped in sterile fashion. 1% lidocaine was administered subcutaneously for local anesthesia. Under ultrasound guidance, a 5 Danish thoracentesis needle/catheter system was advanced into the right posterior lower pleural fluid collection. Approximately 1120 mL of paula-colored fluid was drained. The catheter was removed, and a sterile dressing was applied. A specimen was collected and sent to the laboratory for analysis, as requested by the referring clinician. The patient tolerated the procedure well. A chest x-ray was ordered. US/Thoracentesis W US IMPRESSION: Ultrasound-guided right thoracentesis. Electronically Signed: David Santamaria MD at 14:18 EST Tel [phone], Service support ,
[2018-07-23] MEDS: Ipratropium/Albuterol Sulfate 3 ML AMPUL.NEB INHALATION ×3 (02:51→10:53)
[2018-07-23] MEDS: Miconazole Nitrate Cream 1 APPLIC TOPICAL (05:29)
[2018-07-23 06:22] LABS: Prothrombin Time (Protime)PT. 12.9 SECONDS (11.7-14.9)
[2018-07-23 06:24] LABS: Partial Thromboplast Time 29.8 Seconds (24.1-36.2)
[2018-07-23 06:37] LABS: Anion Gap 15 (5-15); BUN 24 mg/dL (7-18); BUN/Creat Ratio 13.3 RATIO (10-20); Calcium,Total 7.9 mg/dL (8.5-10.1); Chloride 107 mmol/L (98-107); EST Glomerular Filtration Rate 29 mL/min (>60); Est Glom Filt Rate - Afr Amer 35 mL/min (>60); Glucose 115 mg/dL (74-106); Potassium 4.6 mmol/L (3.5-5.1); Sodium Level 141 mmol/L (136-145)
[2018-07-23 06:46] LABS: Bedside Glucose 149 mg/dL (70-110)
[2018-07-23] MEDS: Furosemide 40 MG Tablet PO (09:04)
[2018-07-23] MEDS: Carvedilol 3.125 MG TABLET PO (09:04)
[2018-07-23] MEDS: Pantoprazole Sodium 20 MG Tablet PO (09:04)
[2018-07-23] MEDS: Calcium (Elemental) 500 MG Tablet PO ×2 (09:05→16:16)
[2018-07-23 09:51] LABS: ALB/GLOB Ratio 0.6 RATIO (0.9-2.4); Globulin 3.9 g/dL (2.2-4.2); LDH 426 U/L (84-246); Protein, Total 6.2 g/dL (6.4-8.2)
[2018-07-23 11:05] LABS: Bedside Glucose 139 mg/dL (70-110)
--- NOTE | 2018-07-23 13:16 | PN_ITS ---
<Damien Rendon - Last Filed: 07/23/18 13:09> Patient Problems: Active and Suspected Problems (Last Updated 07/18/18 @ 16:53 by Neil Villagran DO) (HFpEF) heart failure with preserved ejection fraction (Acute) Subjective: Patient states she just doesnt feel well, but she cannot state specifically what is worse today. Her breathing is about the same without improvement or worsening. She has a dry cough. She has no CP/SOB/LH/palp/fevers/chills. She denies bladder emptying issues. - Physical Exam General: Alert, Oriented x3, Cooperative, - - frail HEENT: Atraumatic, PERRLA, EOMI, Normocephalic Neck: Supple, No JVD, Negative Carotid Bruits Lungs: Rales, Wheezes Cardiovascular: Regular rate Abdomen: Bowel Sounds Present, Soft, Non Tender Extremities: No edema, Capillary Refill Less than 3 Seconds Skin: No rashes, No breakdown Musculoskeletal: No Tenderness to Palpation of Joints or Extremities Neurological: Cranial nerves II-XII grossly intact Psych/Mental Status: Normal Affect, Appropriate, Alert and oriented to time, p lace, person, mood and affect Vital Signs Temp Pulse Resp BP Pulse Ox 97.9 F 106 H 20 H 107/69 96 07/23/18 09:00 07/23/18 11:00 07/23/18 10:53 07/23/18 09:00 07/23/18 09:00 Oxygen Flow Rate (L/min) 5 Oxygen Delivery Method Nasal Cannula Weight: 110 lb 3.698 oz Body Mass Index (BMI) 21.9 Intake and Output for Last 24 Hours 07/21/18 07/22/18 07/23/18 23:59 23:59 23:59 Intake Total 850 / 850 200 / 200 120 / 120 Balance 850 / 850 200 / 200 120 / 120 Microbiology Past 72 Hours 07/18/18 16:20 Urine Culture - Final Urine Catheter - Catheter Culture exhibits no growth. 07/18/18 14:55 Blood Culture - Preliminary Blood Culture (Wb) - Anticubital Left No growth in 48 hours. 07/18/18 15:20 Blood Culture - Preliminary Blood Culture (Wb) - Anticubital Left No growth in 48 hours. Laboratory Tests Past 24 Hrs 07/23/18 07/23/18 07/23/18 05:06 05:06 05:06 PT 12.9 INR 1.0 APTT 29.8 Sodium 141 Potassium 4.6 Chloride 107 Carbon Dioxide 19.0 L Anion Gap 15 BUN 24 H Creatinine 1.80 H Estim Creat Clear Calc 19.70 Est GFR (MDRD) Af Amer 35 L Est GFR (MDRD) Non-Af 29 L BUN/Creatinine Ratio 13.3 Glucose 115 H Calcium 7.9 L Lactate Dehydrogenase 426 H Total Protein 6.2 L Globulin 3.9 Albumin/Globulin Ratio 0.6 L POC Glucose 07/23/18 07/23/18 07/22/18 10:58 06:42 23:10 POC Glucose 139 H 149 H 127 H 07/22/18 16:38 POC Glucose 140 H Medical Necessity - Tobacco Use Smoking Status: Former smoker Tobacco Use: Non-smoker Assessment/Plan All Active Problems (Last Updated 07/18/18 @ 16:53 by Neil Villagran DO) CHF (congestive heart failure) (Acute) (HFpEF) heart failure with preserved ejection fraction (Acute) 1. Acute on chronic diastolic CHF with recurrent pleural effusion - recently thoracentesis performed with transudates. repeat thora and fluid ordered for today. Continue lasix, bipap, coreg. No BAILEE 2/2 CKD. EF 65%, mild aortic stenosis, RVSP 47. Little improvement so far. 2. NATI on CKD III - trending back down with PO lasix. Basline 1-1.2. 3. Acute on chronic hypoxic respiratory failure - tolerated BiPAP. 3lpm is chronic home dose O2 - currently on 5. 4. Chronic Afib - eliquis held. continue coreg. Rate in low 100s. 5. CAD with prior CABG 6. Chronic iron def anemia/thrombocytopenia - stable. iron and sat low, continue po iron DVT ppx: eliquis held for thora. DC planning: Return to SNF when improved. This patient was seen by Damien Rendon PA-C under the supervision of Doctor Jesus. <Luis Daniel Lee - Last Filed: 07/23/18 17:35> Subjective: Seen and examined. Patient shortness of breath is better after thoracocentesis. Denies history of breast or lung cancer. - Physical Exam General: Alert, Oriented x3, Cooperative, - Neck: Supple, No JVD, Negative Carotid Bruits Lungs: Diminished - Air entry diminished, right posterior half more than left side, Rales, Wheezes Cardiovascular: Regular rate, Regular Rhythm, Normal S1, Normal S2, No murmurs Abdomen: Bowel Sounds Present, Soft, Non Tender Extremities: No edema, Capillary Refill Less than 3 Seconds Skin: No rashes, No breakdown Musculoskeletal: No Tenderness to Palpation of Joints or Extremities, Arthritic Changes, Muscle Wasting Neurological: Cranial nerves II-XII grossly intact, Deep Tendon Reflexes 2+/4 and Symmetrical, Neuro grossly intact Vital Signs Temp Pulse Resp BP Pulse Ox 98.1 F 99 14 101/57 L 96 07/23/18 16:05 07/23/18 16:05 07/23/18 16:05 07/23/18 16:05 07/23/18 16:05 Oxygen Flow Rate (L/min) [3] 5 Oxygen Flow Rate (L/min) [2] 5 Oxygen Flow Rate (L/min) [1 ( 5 Initial Baseline)] Oxygen Flow Rate (L/min) 5 Oxygen Delivery Method [3] Nasal Cannula Oxygen Delivery Method [2] Nasal Cannula Oxygen Delivery Method [1 ( Nasal Cannula Initial Baseline)] Oxygen Delivery Method Nasal Cannula Weight: 110 lb 3.698 oz Body Mass Index (BMI) 21.9 Intake and Output for Last 24 Hours 07/21/18 07/22/18 07/23/18 23:59 23:59 23:59 Intake Total 850 / 850 200 / 200 120 / 120 Balance 850 / 850 200 / 200 120 / 120 Microbiology Past 72 Hours 07/18/18 16:20 Urine Culture - Final Urine Catheter - Catheter Culture exhibits no growth. 07/18/18 14:55 Blood Culture - Preliminary Blood Culture (Wb) - Anticubital Left No growth in 48 hours. 07/18/18 15:20 Blood Culture - Preliminary Blood Culture (Wb) - Anticubital Left No growth in 48 hours. Laboratory Tests Past 24 Hrs 07/23/18 07/23/18 07/23/18 05:06 05:06 05:06 PT 12.9 INR 1.0 APTT 29.8 Sodium 141 Potassium 4.6 Chloride 107 Carbon Dioxide 19.0 L Anion Gap 15 BUN 24 H Creatinine 1.80 H Estim Creat Clear Calc 19.70 Est GFR (MDRD) Af Amer 35 L Est GFR (MDRD) Non-Af 29 L BUN/Creatinine Ratio 13.3 Glucose 115 H Calcium 7.9 L Lactate Dehydrogenase 426 H Total Protein 6.2 L Globulin 3.9 Albumin/Globulin Ratio 0.6 L POC Glucose 07/23/18 07/23/18 07/23/18 16:09 10:58 06:42 POC Glucose 204 H 139 H 149 H 07/22/18 07/22/18 23:10 16:38 POC Glucose 127 H 140 H Assessment/Plan This patient was seen in conjunction with Damien JARA. I have independently interviewed and examined the patient and reviewed pertinent history, examination findings, laboratory and plan of management. I have reviewed the note and agree with the documented findings with the few additional points. In brief, patient is admitted for acute on chronic diastolic heart failure secondary to acute on recurrent pleural effusion. Patient had right-sided ultrasound-guided thoracocentesis with 1150 mL paula colored fluid aspirated. Fluid analysis pending. Patient has acute on chronic respiratory failure and acute kidney and CKD stage III. I have discussed my assessment with Damien JARA and orders have been reviewed. Code Visit Inpatient E&M: 39249 Subs Hosp L3
--- NOTE | 2018-07-23 13:54 | RAD_ITS ---
STUDY: X-RAY CHEST REASON FOR EXAM: Female, 72 years old. The patient is status post right thoracentesis. TECHNIQUE: AP inspiration and expiration. COMPARISON: Comparison is made with prior examination dated July 18, 2018. FINDINGS: The patient is status post right thoracentesis. There is no evidence of pneumothorax. Residual small bilateral pleural effusions with underlying atelectasis. RAD/Chest Insp/Exp 2 View IMPRESSION: Status post right thoracentesis. There is no evidence of pneumothorax. Electronically Signed: David Santamaria MD at 13:29 EST Tel [phone], Service support ,
--- NOTE | 2018-07-23 14:18 | CASEMGMT ---
Updates sent to [employer]. Kavya [employer]
--- NOTE | 2018-07-23 15:32 | NURSING ---
this RN spoke to Vida, wound RN about coccyx wound. Vida RN stated monistat derm should not be applied to wound. medication then discontinued on SEP.
[2018-07-23] MEDS: Insulin Lispro 100 UNIT/ML INSULN.PEN SQ (16:15)
[2018-07-23 16:16] LABS: Bedside Glucose 204 mg/dL (70-110)
[2018-07-23] MEDS: Acetaminophen 325 MG Tablet 650 MG PO (16:18)
[2018-07-23 22:12] LABS: Cytology, Body Fluid / CSF SEE PATHOLOGY REPORT
[2018-07-23 22:29] LABS: Body Fluid Mononuclear WBC # 0.009 10^3/uL; Body Fluid Mononuclear WBC % 56.3 %; Body Fluid Polynuclear WBC # 0.007 10^3/uL; Body Fluid Polynuclear WBC % 43.7 %; Body Fluid Total Cells Counted 0.019 10^3/ul (0.000-0.000); White Blood Count/Body Fluid 0.016 10^3/uL
[2018-07-23 22:39] LABS: Appearance/Body Fluid CLEAR; Color/Body Fluid YELLOW; Red Cell Count/Body Fluid 1 /mm3; Source- Body Fluid THORACENTESIS
[2018-07-23 23:06] LABS: LDH,Body Fluid 49 Units/l (Not Establ.); Protein, Body Fluid 0.7 g/dL (Not Establ.)
[2018-07-23 23:47] LABS: Lymphocytes 8 %; Mesothelial Cells 14 %; Monocytes 46 %; Neutrophil (Segs) 32 %
[2018-07-23 23:49] LABS: Auto B Fluid Analyzer BKGD Ct COUNTS W/IN LIMITS (W/IN LIMITS); Body Fluid QC Type(s) BF1Q,BF2Q
[2018-07-24] VITALS (16 sets, daily range): BP systolic 94–112; BP diastolic 61–73; PULSE 68–110; RESP 12–22; TEMP 36.4–36.9; O2SAT 92–99
[2018-07-24 00:36] LABS: Bedside Glucose 201 mg/dL (70-110)
[2018-07-24] MEDS: Ipratropium/Albuterol Sulfate 3 ML AMPUL.NEB INHALATION ×2 (01:00→13:02)
[2018-07-24 05:42] LABS: Anion Gap 9 (5-15); BUN 34 mg/dL (7-18); BUN/Creat Ratio 16.8 RATIO (10-20); Calcium,Total 8.6 mg/dL (8.5-10.1); Chloride 106 mmol/L (98-107); Creatinine, Serum 2.02 mg/dL (0.55-1.02); EST Glomerular Filtration Rate 26 mL/min (>60); Est Glom Filt Rate - Afr Amer 31 mL/min (>60); Estimated Creatinine Clearance 17.55 ml/min; Glucose 161 mg/dL (74-106); Potassium 4.4 mmol/L (3.5-5.1); Sodium Level 146 mmol/L (136-145)
--- NOTE | 2018-07-24 05:55 | RAD_ITS ---
STUDY: X-RAY CHEST REASON FOR EXAM: Female, 72 years old. Shortness of breath and dyspnea. TECHNIQUE: AP and lateral views of the chest. COMPARISON: Comparison is made with prior study dated July 23, 2018. FINDINGS: EKG electrodes are seen. Since prior study, there is increasing right pleural effusion. There has been an increase in the CHF with bibasilar atelectasis and/or infiltration. Sternal cerclage wires are present from a prior sternotomy. Prior valve replacement. A left-sided dual-chamber pacemaker is seen. Normal mediastinum and billy. Normal visualized pulmonary arteries. There is atherosclerotic calcification of the aortic arch with tortuosity. There are diffuse degenerative changes of the visualized thoracic spine. Normal visualized ribs, clavicles, and shoulders. There is no demonstrated abnormality of the visualized soft tissue structures of the upper abdomen. RAD/Chest PA and Lateral IMPRESSION: Progressive increase in the right pleural effusion with CHF. Persistent bibasilar atelectasis and/or infiltrates. Electronically Signed: David Santamaria MD at 15:47 EST Tel [phone], Service support ,
[2018-07-24 07:51] LABS: Bedside Glucose 166 mg/dL (70-110)
[2018-07-24] MEDS: Insulin Lispro 100 UNIT/ML INSULN.PEN SQ ×2 (08:11→11:09)
[2018-07-24] MEDS: Furosemide 40 MG Tablet PO (10:15)
[2018-07-24] MEDS: Pantoprazole Sodium 20 MG Tablet PO (10:15)
[2018-07-24] MEDS: Calcium (Elemental) 500 MG Tablet PO (10:15)
--- NOTE | 2018-07-24 10:55 | TREXTCAR_ITS ---
<Damien Rendon - Last Filed: 07/24/18 10:50> - Diet 07/23/18 09:35 Diet: Strict cardiac, sodium controlled diet <2g sodium daily Food consistency:: Mechanical Soft/Ground Liquid Consistency:: [place] Thick Dietary Modifications:: Mechanical Soft Diet [place] Thick Liquids Is pt able to select menu?: No Diet Comments: Supervision; seated at 90 degrees; meds crushed in purees - Routine Orders/Code Status Suppository Type: Dulcolax 10mg Suppository Frequency: Daily PRN O2 Frequency: Continuous Keep PO Greater than or Equal to (%): 89 Routine Lab Work: CBC - 5 days, BMP - 3 days Code Status: Full Code - Wound(s) LFA Wound Type: Abrasion coccyx Wound Type: Pressure Injury SACRUM Wound Type: Pressure Injury Dressing Change: DUODERM RIGHT MID BACK Wound Type: Pressure Injury Dressing Change: DUODERM Both forearms Wound Type: scabs - Therapies Physical Therapy: Eval and Treat Occupational Therapy: Eval and Treat Speech Therapy: Eval and Treat - Problem/Diagnosis (1) (HFpEF) heart failure with preserved ejection fraction Status: Acute Current Visit: Yes (2) Recurrent pleural effusion on right Status: Acute Current Visit: Yes (3) NATI (acute kidney injury) Status: Acute Current Visit: Yes (4) Chronic respiratory failure with hypoxia Status: Chronic Current Visit: Yes (5) Iron deficiency anemia Status: Chronic Current Visit: Yes (6) Dysphagia Status: Chronic Current Visit: Yes (7) Status post coronary artery bypass graft Status: Chronic Current Visit: No (8) Chronic atrial fibrillation Status: Chronic Current Visit: No (9) CAD (coronary artery disease) Status: Chronic Current Visit: No - Allergies/Procedures Done in Hospital Allergies/Adverse Reactions: Allergies simvastatin [From Zocor] Allergy (Verified 07/18/18 14:07) Unknown Procedures: Thoracentesis - Type of Care/Length of Stay Estimated LOS: Convalescent Care Less Than 30 days Type of Care Needed: Skilled Rehab Potential: Fair Prognosis: Fair - Additional Orders/Day of Discharge H&P will serve as current which was dated: 07/18/18 Day of Discharge: 07/24/18 - Dietary and Speech Recommendations Dietitian Recommendations/Changes: Suggest therapeutic diet change to no added salt/1500 ml FR as indicated if PO improves at meals. Will d/c ensure enlive on medpass--pt refusing most ONS. May need to consider TF support as PO is not improving. - Follow Up Care Primary Care Physician: Gianni Nava DO [Primary Care Provider] - Please follow up with your Primary Care Physician in: 1-2 weeks Please Follow Up With: Bk Castillo MD When: 2 weeks <Luis Daniel Lee - Last Filed: 07/24/18 11:27> - Diet 07/23/18 09:35 Diet: Regular Diet Food consistency:: Mechanical Soft/Ground Liquid Consistency:: [place] Thick Dietary Modifications:: Mechanical Soft Diet [place] Thick Liquids Is pt able to select menu?: No Diet Comments: Supervision; seated at 90 degrees; meds crushed in purees - Wound(s) LFA Wound Type: Abrasion coccyx Wound Type: Pressure Injury SACRUM Wound Type: Pressure Injury Dressing Change: DUODERM RIGHT MID BACK Wound Type: Pressure Injury Dressing Change: DUODERM Both forearms Wound Type: scabs right back Wound Type: Puncture - Follow Up Care Please Follow Up With: John Berger DO When: in 2-3 weeks for recurrent pleural effusion
[2018-07-24] MEDS: Carvedilol 3.125 MG TABLET PO (11:18)
--- NOTE | 2018-07-24 11:24 | PHA.DC.MR ---
Pharmacy Service has performed discharge medication reconciliation for this patient upon transfer to [facility]. The patient's discharge medication list was reviewed for discrepancies and discrepancies were resolved. Home Medications Acetaminophen 650 mg PO Q4H PRN PRN 07/04/18 Apixaban [Eliquis] 2.5 mg PO BID 07/04/18 Bisacodyl 10 mg RC DAILY PRN PRN 07/04/18 Calcium Carbonate 500 mg PO TID 07/04/18 Glucagon 1 mg IM X1 PRN 07/04/18 Insulin Lispro [Humalog] See Protocol SQ 4X/DAY 07/04/18 Ipratropium/Albuterol Sulfate [Duoneb] 3 ml INHALATION Q2H PRN PRN 07/04/18 Magnesium Hydroxide [Milk Of Magnesia] 30 ml PO DAILY PRN PRN 07/04/18 Melatonin/Pyridoxine HCl (B6) [Melatonin 3 mg Tablet] 1 each PO QHS PRN PRN 07/04/18 Na Phos,M-B/Na Phos,Di-Ba [Fleet Enema] 133 ml RC DAILY PRN PRN 07/04/18 Omeprazole 20 mg PO DAILY 07/04/18 Sennosides [Senna] 8.6 mg PO DAILY PRN PRN 07/04/18 Carvedilol [Coreg (Beta Tiarra)] 3.125 mg PO BID tablet 07/24/18 Ferrous Sulfate 325 mg PO DAILY@1200 tablet 07/24/18 Furosemide [Lasix] 40 mg PO DAILY tablet 07/24/18 Potassium Chloride [K-Dur] 10 meq PO DAILYCM tablet 07/24/18
--- NOTE | 2018-07-24 11:47 | CASEMGMT ---
Patient ready for discharge. GAUTAM faxed orders to [facility]. GAUTAM called [facility] and arranged for patient to get picked up at 3p via cot. GAUTAM notified patient, RN, and patient's son via phone. GAUTAM also called [facility] and let Ila the receptionist/telephone operator know as no one else was available. Plan: Patient discharged back to [facility] under skilled level of care. [facility] transported her via cot. Kavya CARCAMO MSW
[2018-07-24 12:11] LABS: Bedside Glucose 157 mg/dL (70-110)
--- NOTE | 2018-07-24 13:15 | DS.PCM_ITS ---
<Damien Rendon - Last Filed: 07/24/18 13:17> Discharge Date and Diagnosis - Problem List Patient Problems: Active and Suspected Problems (Last Updated 07/18/18 @ 16:53 by Neil Villagran DO) Recurrent pleural effusion on right (Acute) NATI (acute kidney injury) (Acute) (HFpEF) heart failure with preserved ejection fraction (Acute) Date of Admission: 07/18/18 Date of Discharge: 07/24/18 - Primary Discharge Diagnosis Active and Suspected Problems (Last Updated 07/18/18 @ 16:53 by Neil Villagran DO) Recurrent transudative pleural effusion on right (Acute) 2/2 acute on chronic diastolic CHF exacerbation NATI on CKDIII Dysphagia with dietary noncompliance Chronic Afib CAD with prior CABG Chronic iron def anemia/thrombocytopenia - Secondary Discharge Diagnosis Chronic Problems (Last Updated 07/18/18 @ 16:53 by Neil Villagran DO) Chronic respiratory failure with hypoxia (Chronic) Iron deficiency anemia (Chronic) Dysphagia (Chronic) Status post coronary artery bypass graft (Chronic) Chronic atrial fibrillation (Chronic) Stage III chronic kidney disease (Chronic) CAD (coronary artery disease) (Chronic) Hospital Course and Treatment Imaging Results: RAD/Chest 1 View (Portable) IMPRESSION: Bilateral pleural effusions with bibasilar atelectasis and/or infiltrate superimposed on CHF. US/Thoracentesis W US IMPRESSION: Ultrasound-guided right thoracentesis. 1120 cc removed Consultations 07/21/18 23:52 Consult: Onc/Wound/advertising writer Routine Comment: Reason for Consult:: pressure sore to coccyx Operations: None Procedures: Thoracentesis Summary of Care Provided: Hospital course: The patient is a 72 year old F recently admitted for CHF exacerbation and pleural effusions, at that time which was tapped with transudative fluid, who went to a SNF then returned with worsening SOB and evidence of redeveloping pleural effusions on CXR. She was admitted to the PCU and started on lasix. She underwent a thoracentesis and 1120 cc was drained, which appeared to be transudative. Her SOB and lung sounds improved significantly following this. She had swallowing issues while here and speech placed her on a mechanical soft and nectar thickened liquid diet - unfortunately her son brought her thin fluids and she was drinking these despite her restrictions. Also nursing noted that on past admissions he had also brought her fast food despite her CHF. The patient will need to continue a strict sodium controlled diet and have daily weights checked. She will return to the SNF for further rehab. She was discharged to SNF in stable condition. Please follow up with cardiology in 2 weeks, pulmonology in 2 weeks, and with the PCP in 1-2 weeks. Home lasix dose was increased for DC, and she will need a BMP in three days. This patient was seen by Damien Rendon PA-C under the supervision of Doctor Lee. [] Patient Problems: Active and Suspected Problems (Last Updated 07/18/18 @ 16:53 by Neil Villagran DO) Recurrent pleural effusion on right (Acute) NATI (acute kidney injury) (Acute) (HFpEF) heart failure with preserved ejection fraction (Acute) - Physical Exam General: Alert, Oriented x3, Cooperative, - - frail HEENT: Atraumatic, PERRLA, EOMI, Normocephalic Neck: Supple, No JVD, Negative Carotid Bruits Lungs: Diminished Cardiovascular: Regular rate, No murmurs Abdomen: Bowel Sounds Present, Soft, Non Tender Extremities: No edema, Capillary Refill Less than 3 Seconds Skin: No rashes, No breakdown Musculoskeletal: No Tenderness to Palpation of Joints or Extremities Neurological: Cranial nerves II-XII grossly intact Psych/Mental Status: Normal Affect, Appropriate, Alert and oriented to time, place, person, mood and affect Vital Signs Temp Pulse Resp BP Pulse Ox 98.4 F 68 16 94/61 94 07/24/18 10:05 07/24/18 13:03 07/24/18 13:03 07/24/18 10:05 07/24/18 10:05 Oxygen Flow Rate (L/min) [3] 5 Oxygen Flow Rate (L/min) [2] 5 Oxygen Flow Rate (L/min) [1 ( 5 Initial Baseline)] Oxygen Flow Rate (L/min) 3 Oxygen Delivery Method [3] Nasal Cannula Oxygen Delivery Method [2] Nasal Cannula Oxygen Delivery Method [1 ( Nasal Cannula Initial Baseline)] Oxygen Delivery Method Nasal Cannula Weight: 110 lb 3.698 oz Body Mass Index (BMI) 21.9 Intake and Output for Last 24 Hours 07/22/18 07/23/18 07/24/18 23:59 23:59 23:59 Intake Total 200 / 200 240 / 240 240 / 240 Balance 200 / 200 240 / 240 240 / 240 Microbiology Past 72 Hours 07/23/18 13:40 Gram Stain - Final Fluid - Pleural (Lung) Body Fluid Culture - Preliminary No growth-Final to follow 07/18/18 14:55 Blood Culture - Final Blood Culture (Wb) - Anticubital Left No growth in 5 days. 07/18/18 15:20 Blood Culture - Final Blood Culture (Wb) - Anticubital Left No growth in 5 days. Laboratory Tests Past 24 Hrs 07/23/18 07/23/18 07/23/18 13:40 13:40 13:40 Sodium Potassium Chloride Carbon Dioxide Anion Gap BUN Creatinine Estim Creat Clear Calc Est GFR (MDRD) Af Amer Est GFR (MDRD) Non-Af BUN/Creatinine Ratio Glucose Calcium Fluid Source THORACENTESIS Fluid Color YELLOW Fluid Appearance CLEAR Fluid WBC 0.016 Fluid RBC 1 Fluid Tot Cell Count 0.019 H Fld Polynuclear WBCs # 0.007 Fld Polynuclear WBCs % 43.7 Fluid Mononuclear WBCs 0.009 Fld Mononuclear WBCs % 56.3 Fluid Neutrophils 32 Fluid Lymphocytes 8 Fluid Monocytes 46 Fld Mesothelial Cells 14 Fl Pathologist Comment May follow Fluid Glucose 153 H Fluid Total Protein 0.7 Fluid LDH 49 Fluid Comment 2 SEE COMMENT Miscellaneous Cytology Pending 07/24/18 05:10 Sodium 146 H Potassium 4.4 Chloride 106 Carbon Dioxide 31.0 Anion Gap 9 BUN 34 H Creatinine 2.02 H Estim Creat Clear Calc 17.55 Est GFR (MDRD) Af Amer 31 L Est GFR (MDRD) Non-Af 26 L BUN/Creatinine Ratio 16.8 Glucose 161 H Calcium 8.6 Fluid Source Fluid Color Fluid Appearance Fluid WBC Fluid RBC Fluid Tot Cell Count Fld Polynuclear WBCs # Fld Polynuclear WBCs % Fluid Mononuclear WBCs Fld Mononuclear WBCs % Fluid Neutrophils Fluid Lymphocytes Fluid Monocytes Fld Mesothelial Cells Fl Pathologist Comment Fluid Glucose Fluid Total Protein Fluid LDH Fluid Comment 2 Miscellaneous Cytology POC Glucose 07/24/18 07/24/18 07/23/18 11:06 06:56 22:12 POC Glucose 157 H 166 H 201 H 07/23/18 16:09 POC Glucose 204 H Discharge Diet: Low fat/ Low Cholesterol, 2000 mg Sodium Diet Discharge Activity: Return to Normal Activity Home Medications: Medications to take at Discharge Acetaminophen 650 mg PO Q4H PRN PRN 07/04/18 Apixaban [Eliquis] 2.5 mg PO BID 07/04/18 Bisacodyl 10 mg RC DAILY PRN PRN 07/04/18 Calcium Carbonate 500 mg PO TID 07/04/18 Glucagon 1 mg IM X1 PRN 07/04/18 Insulin Lispro [Humalog] See Protocol SQ 4X/DAY 07/04/18 Ipratropium/Albuterol Sulfate [Duoneb] 3 ml INHALATION Q2H PRN PRN 07/04/18 Magnesium Hydroxide [Milk Of Magnesia] 30 ml PO DAILY PRN PRN 07/04/18 Melatonin/Pyridoxine HCl (B6) [Melatonin 3 mg Tablet] 1 each PO QHS PRN PRN 07/04/18 Na Phos,M-B/Na Phos,Di-Ba [Fleet Enema] 133 ml RC DAILY PRN PRN 07/04/18 Omeprazole 20 mg PO DAILY 07/04/18 Sennosides [Senna] 8.6 mg PO DAILY PRN PRN 07/04/18 Carvedilol [Coreg (Beta Tiarra)] 3.125 mg PO BID tablet 07/24/18 Ferrous Sulfate 325 mg PO DAILY@1200 tablet 07/24/18 Furosemide [Lasix] 40 mg PO DAILY tablet 07/24/18 Potassium Chloride [K-Dur] 10 meq PO DAILYCM tablet 07/24/18 Primary Care Physician: Gianni Nava DO [Primary Care Provider] - Please follow up with your Primary Care Physician in: 1-2 weeks Please Follow Up With: Bk Castillo MD When: 2 weeks Please Follow Up With: John Berger DO When: in 2-3 weeks for recurrent pleural effusion Disposition: Half-Way facility Minutes spent on discharge:: 35 Patient Condition:: Stable Medical Necessity - Tobacco Use Smoking Status: Former smoker Tobacco Use: Non-smoker Meaningful Use Info Meaningful Use Diagnoses (Choose all that apply): CHF - CHF BAILEE/ARB ordered at discharge?: No Reason BAILEE/ARB not ordered?: Worsening renal disease Documented LVEF (%): 65 <Luis Daniel Lee - Last Filed: 07/24/18 14:01> Discharge Date and Diagnosis - Primary Discharge Diagnosis Active and Suspected Problems (Last Updated 07/18/18 @ 16:53 by Neil Villagran DO) Recurrent pleural effusion on right (Acute) NATI (acute kidney injury) (Acute) (HFpEF) heart failure with preserved ejection fraction (Acute) - Secondary Discharge Diagnosis Chronic Problems (Last Updated 07/18/18 @ 16:53 by Neil Villagran DO) Chronic respiratory failure with hypoxia (Chronic) Iron deficiency anemia (Chronic) Dysphagia (Chronic) Status post coronary artery bypass graft (Chronic) Chronic atrial fibrillation (Chronic) Stage III chronic kidney disease (Chronic) CAD (coronary artery disease) (Chronic) Hospital Course and Treatment Imaging Results: 07/24/18 05:55 CXR [Chest PA and Lateral] [RAD] AM (NON MEDS) Consultations 07/21/18 23:52 Consult: Onc/Wound/advertising writer Routine Comment: Reason for Consult:: pressure sore to coccyx Summary of Care Provided: This patient was seen in conjunction with Damien JARA. I have independently interviewed and examined the patient and reviewed pertinent history, examination findings, laboratory and plan of management. I have reviewed the note and agree with the documented findings with the few additional points. In brief, patient is admitted for acute on chronic diastolic heart failure secondary to acute on recurrent pleural effusion. Patient had right-sided ultrasound-guided thoracocentesis with 1150 mL paula colored fluid aspirated. Fluid analysis consistent with transudate, total fluid protein 0.7, fluid LDH 153. Initial Gram stain of pleural fluid does not show organism. Infectious workup has so far been negative. Patient has acute on chronic respiratory failure and acute kidney and CKD stage III. The patient is being discharged to SNF Discharge medication reconciliation done. Discharge follow-up instructions completed. Discharge process discussed with the patient. Total time spent, exact 35 minutes on discharge meds reconciliation, examination, review of imaging and blood test and discussion with the patient on follow-up instructions. I have discussed my assessment with Damien JARA and orders have been reviewed. [] - Physical Exam Vital Signs Temp Pulse Resp BP Pulse Ox 97.6 F L 68 22 H 95/62 94 07/24/18 12:05 07/24/18 13:11 07/24/18 13:11 07/24/18 12:05 07/24/18 13:11 Oxygen Flow Rate (L/min) [3] 5 Oxygen Flow Rate (L/min) [2] 5 Oxygen Flow Rate (L/min) [1 ( 5 Initial Baseline)] Oxygen Flow Rate (L/min) 3 Oxygen Delivery Method [3] Nasal Cannula Oxygen Delivery Method [2] Nasal Cannula Oxygen Delivery Method [1 ( Nasal Cannula Initial Baseline)] Oxygen Delivery Method Nasal Cannula Weight: 110 lb 3.698 oz Body Mass Index (BMI) 21.9 Intake and Output for Last 24 Hours 07/22/18 07/23/18 07/24/18 23:59 23:59 23:59 Intake Total 200 / 200 240 / 240 240 / 240 Balance 200 / 200 240 / 240 240 / 240 Microbiology Past 72 Hours 07/23/18 13:40 Gram Stain - Final Fluid - Pleural (Lung) Body Fluid Culture - Preliminary No growth-Final to follow 07/18/18 14:55 Blood Culture - Final Blood Culture (Wb) - Anticubital Left No growth in 5 days. 07/18/18 15:20 Blood Culture - Final Blood Culture (Wb) - Anticubital Left No growth in 5 days. Laboratory Tests Past 24 Hrs 07/23/18 07/23/18 07/23/18 13:40 13:40 13:40 Sodium Potassium Chloride Carbon Dioxide Anion Gap BUN Creatinine Estim Creat Clear Calc Est GFR (MDRD) Af Amer Est GFR (MDRD) Non-Af BUN/Creatinine Ratio Glucose Calcium Fluid Source THORACENTESIS Fluid Color YELLOW Fluid Appearance CLEAR Fluid WBC 0.016 Fluid RBC 1 Fluid Tot Cell Count 0.019 H Fld Polynuclear WBCs # 0.007 Fld Polynuclear WBCs % 43.7 Fluid Mononuclear WBCs 0.009 Fld Mononuclear WBCs % 56.3 Fluid Neutrophils 32 Fluid Lymphocytes 8 Fluid Monocytes 46 Fld Mesothelial Cells 14 Fl Pathologist Comment May follow Fluid Glucose 153 H Fluid Total Protein 0.7 Fluid LDH 49 Fluid Comment 2 SEE COMMENT Miscellaneous Cytology Pending 07/24/18 05:10 Sodium 146 H Potassium 4.4 Chloride 106 Carbon Dioxide 31.0 Anion Gap 9 BUN 34 H Creatinine 2.02 H Estim Creat Clear Calc 17.55 Est GFR (MDRD) Af Amer 31 L Est GFR (MDRD) Non-Af 26 L BUN/Creatinine Ratio 16.8 Glucose 161 H Calcium 8.6 Fluid Source Fluid Color Fluid Appearance Fluid WBC Fluid RBC Fluid Tot Cell Count Fld Polynuclear WBCs # Fld Polynuclear WBCs % Fluid Mononuclear WBCs Fld Mononuclear WBCs % Fluid Neutrophils Fluid Lymphocytes Fluid Monocytes Fld Mesothelial Cells Fl Pathologist Comment Fluid Glucose Fluid Total Protein Fluid LDH Fluid Comment 2 Miscellaneous Cytology POC Glucose 07/24/18 07/24/18 07/23/18 11:06 06:56 22:12 POC Glucose 157 H 166 H 201 H 07/23/18 16:09 POC Glucose 204 H Code Visit Inpatient E&M: [id number] Disch Hosp
[2018-07-24 14:16] LABS: Pathologist Comment/Body Fluid Reviewed
--- NOTE | 2018-07-24 15:35 | NURSING ---
Called report to Chris nurse at [facility].
[2018-07-30 23:04] LABS: Glucose, Body Fluid 152 mg/dL (40-70)
== END 2018-07-24 15:34 | disposition skilled nursing facility (03) | DRG 291 ==
LOC: ED 15:43 → PCU 16:47
PROVIDERS: Hospitalist; Physician Assistant; Emergency Provider Emergency Medicine; Family Provider Preventive Medicine Occupational Medicine; PCP Preventive Medicine Occupational Medicine; Visit Provider Internal Medicine
DX: I50.33 Acute on chronic diastolic (congestive) heart failure (principal); J96.21 Acute and chronic respiratory failure with hypoxia; E44.0 Moderate protein-calorie malnutrition; N17.9 Acute kidney failure, unspecified; J91.8 Pleural effusion in other conditions classified elsewhere; I25.10 Atherosclerotic heart disease of native coronary artery without angina pectoris; E11.22 Type 2 diabetes mellitus with diabetic chronic kidney disease; N18.3 Chronic kidney disease, stage 3 (moderate); I48.2 Chronic atrial fibrillation; Z99.81 Dependence on supplemental oxygen; D69.6 Thrombocytopenia, unspecified; D50.9 Iron deficiency anemia, unspecified; I35.0 Nonrheumatic aortic (valve) stenosis; R13.10 Dysphagia, unspecified; Z79.01 Long term (current) use of anticoagulants; Z95.1 Presence of aortocoronary bypass graft; Z95.0 Presence of cardiac pacemaker; Z79.4 Long term (current) use of insulin; Z68.21 Body mass index [BMI] 21.0-21.9, adult; Z87.891 Personal history of nicotine dependence; J44.9 Chronic obstructive pulmonary disease, unspecified; I95.9 Hypotension, unspecified
CPT/HCPCS: 32555; 36415; 36600; 71045; 71046; 80048; 80053; 81001; 82728; 82803; 82945; 82962; 83540; 83550; 83605; 83615; 83735; 83880; 84156; 84157; 84443; 84466; 84484; 85025; 85610; 85730; 87040; 87070; 87075; 87086; 87205; 87804; 88108; 88305; 88313; 89050; 93005; 94002; 94003; 94640; 96360; 97110; 97116; 97162; 97165; 99285; J7030; J7040; P9612; A4216; J1940

== ENCOUNTER → 2018-08-01 16:10 | Outpatient (CLI) | payer OTHER, SELFPAY ==
[2018-08-01 13:04] VITALS: BMI 20.1
--- NOTE | 2018-08-01 16:40 | RAD_ITS ---
STUDY: X-RAY CHEST REASON FOR EXAM: Female, 72 years old. Congestive heart failure TECHNIQUE: Frontal and lateral views of the chest. Sitting position COMPARISON: 07/24/2018 FINDINGS: There is a multilead permanent pacemaker. Martina more shallow inspiratory level on current examination with opacification of the right mid and lower lung parenchyma, right bilateral pleural effusion and improved aeration. There is decreased vascular prominence. Sternal cerclage wires and vascular clips are present from a prior sternotomy and coronary artery bypass graft procedure (CABG). There is cardiac enlargement. Left atrial clip and valve replacement. Normal mediastinum and billy. Normal visualized pulmonary arteries. There is atherosclerotic calcification of the aortic arch with tortuosity. There is demineralization of the osseous structures. Normal visualized ribs, clavicles, and shoulders. There is no demonstrated abnormality of the visualized soft tissue structures of the upper abdomen. RAD/Chest PA and Lateral IMPRESSION: Markedly improved aeration allowing for markedly more shallow inspiratory level on current examination and decrease of vascular congestion. There is continued bilateral pleural effusion and airspace opacification in the bases, cardiac enlargement and postsurgical changes. Electronically Signed: Ronda Portillo MD at 4:53 EST , Service support ,
--- OUTSIDE RECORDS SUMMARY | 2018-10-03 18:55 | XMS RPT_ITS ---
:1945 Author Organization [place] Support Name Relationship Address Phone TAMIAJORGE Unavailable [address] + [place] [address] PIETRO EATON Unavailable [address] + [place] [address] R Unavailable Unavailable Unavailable JORGE CANTRELL Unavailable [address] + [place] [address] PIETRO EATON Unavailable [address] + [place] [address] R Unavailable Unavailable Unavailable JORGE CANTRELL Unavailable [address] + [place] [address] PIETRO EATON Unavailable [address] + [place] [address] R Unavailable Unavailable Unavailable TAMIA JORGE Unavailable [address] + [place] [address] PIETRO EATON Unavailable [address] + [place] [address] R Unavailable Unavailable Unavailable JORGE CANTRELL Unavailable [address] + [place] [address] [address] MORENO Un[address] + [place] [address] R Unavailable Unavailable Unavailable TAMIA JORGE Unavailable [address] + [place] [address] EL MORENO Unavailable [address] + [place] [address] R Unavailable Unavailable Unavailable JORGE CANTRELL Unavailable [address] + [place] [address] [place] MORENO Unavailable [address] + [place] [address] R Unavailable Unavailable Unavailable TAMIA, JORGE Unavailable [address] + [place] [address] UMATALIABETTY Unavailable [address] + [place] [address] R Unavailable Unavailable Unavailable TAMIA, JORGE Unavailable [address] + [place] [address] UMATALIABETTY Unavailable [address] + [place] [address] R Unavailable Unavailable Unavailable TAMIA, JORGE Unavailable [address] + [place] [address] UMATALIABETTY Unavailable [address] + [place] [address] R Unavailable Unavailable Unavailable TAMIA, JORGE Unavailable [address] + [place] [address] UMATALIABETTY Unavailable [address] + [place] [address] R Unavailable Unavailable Unavailable TAMIA, JORGE Unavailable [address] + [place] [address] UMATALIABETTY Unavailable [address] + [place] [address] R Unavailable Unavailable Unavailable TAMIA, JORGE Unavailable [address] + [place] [address] [address] MORENO Un[address] + [place] [address] R Unavailable Unavailable Unavailable TIFFANIE, EL Unavailable [address] + [place] [address] R Unavailable Unavailable Unavailable TAMIA, JORGE Unavailable [address] + [place] [address] TIFFANIE EL Un[address] + [place] [address] R Unavailable Unavailable Unavailable TIFFANIE, EL Unavailable [address] + [place] [address] R Unavailable Unavailable Unavailable TIFFANIE, EL Unavailable [address] + [place] [address] R Unavailable Unavailable Unavailable TIFFANIE EL Unavailable [address] + [place] [address] R Unavailable Unavailable Unavailable TIFFANIE, EL Unavailable [address] + [place] [address] R Unavailable Unavailable Unavailable TIFFANIE, EL Unavailable [address] + [place] [address] R Unavailable Unavailable Unavailable TIFFANIE, EL Unavailable [address] + [place] [address] R Unavailable Unavailable Unavailable TIFFANIE, EL Unavailable [address] + [place] [address] R Unavailable Unavailable Unavailable TIFFANIE, EL Unavailable [address] + [place] [address] R Unavailable Unavailable Unavailable TIFFANIE, EL Unavailable [address] + [place] [address] R Unavailable Unavailable Unavailable TIFFANIE, EL Unavailable [address] + [place] [address] R Unavailable Unavailable Unavailable TIFFANIE, EL Unavailable [address] + [place] [address] R Unavailable Unavailable Unavailable TIFFANIE, EL Unavailable [address] + [place] [address] R Unavailable Unavailable Unavailable TIFFANIE, EL Unavailable [address] + [place] [address] R Unavailable Unavailable Unavailable TIFFANIE, EL Unavailable [address] + [place] [address] R Unavailable Unavailable Unavailable TAMIA, JORGE Unavailable [address] + [place] [address] TIFFANIE, EL Unavailable [address] + [place] [address] R Unavailable Unavailable Unavailable NONE Unavailable Unavailable Unavailable NONE Unavailable Unavailable Unavailable NONE Unavailable Unavailable Unavailable NONE Unavailable Unavailable Unavailable NONE Unavailable Unavailable Unavailable NONE Unavailable Unavailable Unavailable NONE Unavailable Unavailable Unavailable NONE Unavailable Unavailable Unavailable NONE Unavailable Unavailable Unavailable NONE Unavailable Unavailable Unavailable NONE Unavailable Unavailable Unavailable NONE Unavailable Unavailable Unavailable NONE Unavailable Unavailable Unavailable NONE Unavailable Unavailable Unavailable TIFFANIE, EL Unavailable Unavailable + TIFFANIE, EL Unavailable Unavailable + TIFFANIE, EL Unavailable Unavailable + TIFFANIE, EL Unavailable Unavailable + EL MORENO Unavailable Unavailable + EL MORENO Unavailable Unavailable + EL MORENO Unavailable Unavailable + EL MORENO Unavailable Unavailable + EL MORENO Unavailable Unavailable + EL MORENO Unavailable Unavailable + EL MORENO Unavailable Unavailable + EL MORENO Unavailable Unavailable + EL MORENO Unavailable Unavailable + EL MORENO Unavailable Unavailable + NONE Unavailable Unavailable Unavailable EL MORENO Unavailable Unavailable + NONE Unavailable Unavailable Unavailable NONE Unavailable Unavailable Unavailable NONE Unavailable Unavailable Unavailable EL MORENO Unavailable Unavailable + EL MORENO Unavailable Unavailable + Care Team Providers Name Role Phone TIFFANIE ALONZO, DR. ABREU Attending Unavailable TIFFANIE ALONZO, DR. ABREU Referring Unavailable EMELI, AJITH Primary Care Unavailable ALISTAIR ALONZO MD. AJITH Ga Admitting Unavailable ALISTAIR ALONZO MD. AJITH Ga Attending Unavailable EMELI, AJITH Primary Care Unavailable MARY VARGAS MD Consulting Unavailable MEÑO HUGHES MD Consulting Unavailable TIFFANIE ALONZO, DR. ABREU Consulting Unavailable JIMBO AMIN MD Consulting Unavailable MEÑO HUGHES MD Admitting Unavailable MEÑO HUGHES MD Attending Unavailable EMELI, AJITH Primary Care Unavailable ALISTAIR ALONZO MD. AJITH Ga Consulting Unavailable DR. LOIS MORENO MD. Attending Unavailable EMELI, AJITH Primary Care Unavailable TIFFANIE ALONZO, DR. ABREU Attending Unavailable EMELI, AJITH Primary Care Unavailable IRENE MEJIA, DON Christianson Attending Unavailable EMELI, AJITH Primary Care Unavailable OBED FLORES MD Attending Unavailable EMELI, AJITH Primary Care Unavailable TIFFANIE ALONZO, DR. ABREU Attending Unavailable EMELI, AJITH Primary Care Unavailable NICOLE CAVAZOS Attending Unavailable NICOLE CAVAZOS Referring Unavailable EMELI, AJITH Primary Care Unavailable TIFFANIE ALONZO, DR. ABREU Attending Unavailable EMELI, AJITH Primary Care Unavailable TIFFANIE ALONZO, DR. ABREU Attending Unavailable EMELI, AJITH Primary Care Unavailable MEÑO HUGHES MD Admitting Unavailable MEÑO HUGHES MD Attending Unavailable ALISTAIR ALONZO MD. AJITH Ga Consulting Unavailable ALISTAIR ALONZO MD. AJITH Ga Admitting Unavailable ALISTAIR ALONZO MD. AJITH Ga Attending Unavailable JIMBO AMIN MD Consulting Unavailable MARY VARGAS MD Consulting Unavailable MEÑO HUGHES MD Consulting Unavailable TIFFANIE ALONZO, DR. ABREU Consulting Unavailable CAITY POST Attending Unavailable EMELI, AJITH Primary Care Unavailable ALISTAIR ALONZO MD. AJITH Ga Consulting Unavailable MEÑO HUGHES MD Attending Unavailable EMELI, AJITH Primary Care Unavailable MEÑO HUGHES MD Admitting Unavailable MEÑO HUGHES MD Attending Unavailable EMELI, AJITH Primary Care Unavailable EL ALONZO, DR. DIANA Christianson Consulting Unavailable ASHLIE ALONZO, DR. PORTER Consulting Unavailable ALISTAIR ALONZO MD. AJITH Ga Consulting Unavailable KELLY ROBERSON MD Consulting Unavailable AJITH SAINZ Consulting Unavailable JOSÉ MIGUEL ALONZO, DR. SHANNON Consulting Unavailable MEÑO HUGHES MD Consulting Unavailable JIMBO AMIN MD Consulting Unavailable TIFFANIE ALONZO, DR. ABREU Consulting Unavailable MARY VARGAS MD Consulting Unavailable ELIANE ALONZO, DR. LANDAVERDE Attending Unavailable EMELI, AJITH Primary Care Unavailable TELLY COLON MD, JR. Attending Unavailable EMELI, AJITH Primary Care Unavailable ELIANE ALONZO, DR. LANDAVERDE Attending Unavailable EMELI, AJITH Primary Care Unavailable EMELI, AJITH Attending Unavailable EMELI, AJITH Primary Care Unavailable EMELI, AJITH Attending Unavailable EMELI, AJITH Primary Care Unavailable ISHMAEL VÁSQUEZ MD Attending Unavailable EMELI, AJITH Primary Care Unavailable MEÑO HUGHES MD Admitting Unavailable MEÑO HUGHES MD Attending Unavailable EMELI, AJITH Primary Care Unavailable MARY VARGAS MD Consulting Unavailable ROGER THAKUR, DR. QUINTIN Vale Consulting Unavailable ALISTAIR ALONZO MD. AJITH Ga Consulting Unavailable CESAR KHAN MD Consulting Unavailable EMELI, AJITH Primary Care Unavailable MEÑO HUGHES MD Admitting Unavailable MEÑO HUGHES MD Attending Unavailable AJITH SAINZ [facility] Unavailable MEÑO HUGHES MD Admitting Unavailable MEÑO HUGHES MD Attending Unavailable ANSELMO BARCENAS MD Consulting Unavailable ALISTAIR ALONZO MD. AJITH Ga Consulting Unavailable MEÑO HUGHES MD Consulting Unavailable MEÑO HUGHES MD Admitting Unavailable MEÑO HUGHES MD Attending Unavailable AJITH SAINZ [facility] Unavailable DEVIN PAULINO MD Consulting Unavailable JOSE MORALES MD Consulting Unavailable JESSICA THAKUR, DR. MAICO Whitfield Consulting Unavailable ALISTAIR ALONZO MD. AJITH Ga Consulting Unavailable AJITH SAINZ [facility] Unavailable MEÑO HUGHES MD Consulting Unavailable MEÑO HUGHES MD Admitting Unavailable MEÑO HUGHES MD Attending Unavailable OBED FLORES MD Attending Unavailable AJITH SAINZ [facility] Unavailable ALISTAIR ALONZO MD. AJITH Ga Admitting Unavailable ALISTAIR ALONZO MD. AJITH Ga Attending Unavailable MARY VARGAS MD Consulting Unavailable JIMBO AMIN MD Consulting Unavailable CARLOS ALBERTO JERRY MD Consulting Unavailable MEÑO HUGHES MD Consulting Unavailable YAIR BENITEZ MD Consulting Unavailable ALISTAIR ALONZO MD. AJITH Ga Consulting Unavailable ANDREA HERRING MD Consulting Unavailable TAWANDA ALONZO, DR. GONZALEZ Consulting Unavailable REID ROCKWELL MD Consulting Unavailable JEIMY POSEY MD Consulting Unavailable NEHAL WILCOX MD Consulting Unavailable AJITH SAINZ Consulting Unavailable FROILAN AGUILLON MD Consulting Unavailable QUINN TELLEZ MD Consulting Unavailable EVER MAY, DR. RIVERA Consulting Unavailable TIFFANIE ALONZO, DR. ABREU Consulting Unavailable GRISELDA ALONZO, DR. ROBINS Consulting Unavailable ASI, KHALED Consulting [facility] Benjie Guzman Admitting Unavailable Alex Domínguez Consulting Unavailable Keeley Wells Attending Unavailable John Berger D.O. Consulting Unavailable Benjie Guzman Admitting Unavailable Benjie Guzman Attending [facility]available Benjie Guzman Consulting Unavailable Kotsonis, Benjie F Admitting Unavailable Kotsonis, Benjie F Attending Unavailable [facility] Unavailable Karimian, Alex Consulting Unavailable Kotsonis, Benjie F Consulting Unavailable Kotsonis, Benjie F Admitting Unavailable Kotsonis, Benjie F Attending Unavailable [facility] Unavailable Karimian, Alex Consulting Unavailable Kotsonis, Benjie F Consulting Unavailable Kotsonis, Benjie F Admitting Unavailable Kotsonis, Benjie F Attending Unavailable [facility] Unavailable Karimian, Alex Consulting Unavailable Kotsonis, Benjie F Consulting Unavailable Kotsonis, Benjie F Admitting Unavailable Kotsonis, Benjie F Attending Unavailable [facility] Unavailable Karimian, Alex Consulting Unavailable Kotsonis, Benjie F Consulting Unavailable Kotsonis, Benjie F Admitting Unavailable John Berger D.O. Attending Unavailable [facility] Unavailable Karimian, Alex Consulting Unavailable John Berger D.O. Consulting Unavailable Koram, Keeley Christa Consulting Unavailable Kotsonis, Benjie F Admitting Unavailable Koram, Keeley Christa Attending Unavailable [facility] Unavailable Karimian, Alex Consulting Unavailable Jonh Berger D.O. Consulting Unavailable Koram, Keeley Christa Consulting Unavailable Kotsonis, Benjie F Admitting Unavailable Koram, Keeley Christa Attending Unavailable [facility] Unavailable Karimian, Alex Consulting Unavailable John Berger D.O. Consulting Unavailable Koram, Keeley Christa Consulting Unavailable Kotsonis, Benjie F Admitting Unavailable John Berger D.O. Attending Unavailable [facility] Unavailable Karimian, Alex Consulting Unavailable John Beregr D.O. Consulting Unavailable Koram, Keeley Christa Consulting Unavailable Kotsonis, Benjie F Admitting Unavailable Koram, Keeley Christa Attending Unavailable [facility] Unavailable Karimian, Alex Consulting Unavailable John Berger D.O. Consulting Unavailable Koram, Keeley Christa Consulting Unavailable Kotsonis, Benjie F Admitting Unavailable Vasiliy AngelesO. Attending Unavailable [facility] Unavailable Karimian, Alex Consulting Unavailable Indira Angeles.O. Consulting Unavailable Koram, Keeley Christa Consulting Unavailable KolilionisMalikBenjie F Admitting Unavailable Indira Angeles.O. Attending Unavailable [facility] Unavailable Karimian, Alex Consulting Unavailable John Berger, Indira.O. Consulting Unavailable Koram, Keeley Christa Consulting Unavailable Kotsonis, Benjie F Admitting Unavailable Koram, Keeley Christa Attending Unavailable [facility] Care Unavailable Karimian, Alex Consulting Unavailable John Berger, Indira.O. Consulting Unavailable Koram, Keeley Christa Consulting Unavailable Kotsonis, Benjie F Admitting Unavailable Koram, Keeley Christa Attending Unavailable [facility] Care Unavailable Karimian, Alex Consulting Unavailable Indira Angeles.O. Consulting Unavailable Koram, Keeley Christa Consulting Unavailable AndrewsMalikBenjie F Admitting Unavailable Indira Angeles.O. Attending Unavailable [facility] Care Unavailable Karimian, Alex Consulting Unavailable Indira Angeles.O. Consulting Unavailable Koram, Keeley Christa Consulting Unavailable [facility] Care Unavailable Anselmo Thomas Attending Unavailable [facility] Unavailable Jopperi, Neil Admitting Unavailable Luis Daniel Lee Attending Unavailable Jopperi, Neil Admitting Unavailable Jopperi, Neil Attending Unavailable [facility] Unavailable Jopperi, Neil Consulting Unavailable Jopperi, Neil Admitting Unavailable Ashelfah, Ghasem Attending Unavailable [facility] Care Unavailable Ashelfah, Ghasem Consulting Unavailable Jopperi, Neil Admitting Unavailable Ashelfah, Ghasem Attending Unavailable [facility] Care Unavailable Ashelfah, Ghasem Consulting Unavailable Bk Castillo Attending Unavailable Koram, Keeley Christa Referring Unavailable Jopperi, Neil Admitting Unavailable Ashelfah, Ghasem Attending Unavailable [facility] Care Unavailable Ashelfah, Ghasem Consulting Unavailable Jopperi, Neil Admitting Unavailable Ashelfah, Ghasem Attending Unavailable [facility] Care Unavailable Ashelfah, Ghasem Consulting Unavailable Jopperi, Neil Admitting Unavailable Ajith Sainz Primary Care Unavailable Jesus, Luis Daniel Consulting Unavailable Alexandr Leesh Attending Unavailable Neil Villagran Admitting Unavailable Ajith Sainz Primary Care Unavailable Jesus, Luis Daniel Consulting Unavailable Jesus, Luis Daniel Attending Unavailable Larisa Hernandez Attending Unavailable Srinivas Montgomery Attending Unavailable Ajith Sainz Referring Unavailable Damion Montgomeyrril Attending Unavailable [place], [place] Referring Unavailable Ajith Sainz Primary Care Unavailable Phuong Flores Attending Unavailable Ajith Sainz Referring Unavailable PROBLEMS PROBLEMS DATE TYPE CONDITION / CODE ATTENDING STATUS SOURCE 08/01/2018 Unknown Z95.2 - Presence Ulises, Srinivas Active [facility] heart valve / Hospital Z95.2(ICD-10) Repository 08/01/2018 Unknown Z95.0 - Presence Ulises, Srinivas Active [facility] pacemaker / Hospital Z95.0(ICD-10) Repository 08/01/2018 Unknown I50.33 - Acute on Ulises, [place] Active [facility] chronic diastolic [facility] (congestive) heart Hospital failure / Repository I50.33(ICD-10) 08/01/2018 Unknown I48.0 - Paroxysmal [place], [place] Active [facility] atrial Community fibrillation / Hospital I48.0(ICD-10) Repository 07/24/2018 Unknown Z00.00 - Encounter Jesus, Luis Daniel Active [facility] for general adult [facility] Hospital examination Repository without abnormal findings / Z00.00(ICD-10) PROCEDURES PROCEDURES No Procedure Records FoundRESULTS RESULTS CHEST PA AND LATERAL Observed: 08/01/2018 Status: F Source: [facility] 4:27 PM [facility] HOSPITAL REPOSITORY [facility] Imaging Services [address] [place] [address] Chest PA and Lateral MR#: [id number] Acct: [id number] Name: JENNIFER CANTRELL Joni Rep #: [id number] : 1945 F 72 From: Ronda Portillo MD PCP: Ajith Sainz DO Status: REG CLI Study: Chest PA and Lateral Date of Exam: 08/01/18 Exam# [id number] Ordering Dr: Srinivas Montgomery MD STUDY: X-RAY CHEST REASON FOR EXAM: Female, 72 years old. Congestive heart failure TECHNIQUE: Frontal and lateral views of the chest. Sitting position COMPARISON: 07/24/2018 FINDINGS: There is a multilead permanent pacemaker. Martina more shallow inspiratory level on current examination with opacification of the right mid and lower lung parenchyma, right bilateral pleural effusion and improved aeration. There is decreased vascular prominence. Sternal cerclage wires and vascular clips are present from a prior sternotomy and coronary artery bypass graft procedure (CABG). There is cardiac enlargement. Left atrial clip and valve replacement. Normal mediastinum and billy. Normal visualized pulmonary arteries. There is atherosclerotic calcification of the aortic arch with tortuosity. There is demineralization of the osseous structures. Normal visualized ribs, clavicles, and shoulders. There is no demonstrated abnormality of the visualized soft tissue structures of the upper abdomen. RAD/Chest PA and Lateral IMPRESSION: Markedly improved aeration allowing for markedly more shallow inspiratory level on current examination and decrease of vascular congestion. There is continued bilateral pleural effusion and airspace opacification in the bases, cardiac enlargement and postsurgical changes. Electronically Signed: Ronda Portillo MD at 4:53 EST , Service support , CC: Srinivas Montgomery MD; Ajith Sainz DO Mushroom Grower: Signed CARDIOLOGY VISIT Observed: 08/01/2018 Status: F Source: [place] REPORT 3:35 PM [facility] REPOSITORY [facility]. [address] [place] [address] OFFICE VISIT Date of Service: 08/01/18 MR#: [id number] Acct: [id number] Name: JENNIFER CANTRELL Rep #: [id number] : 1945 Provider: Srinivas Montgomery MD Age/Sex: 72/F [place] [facility] [place]: Signed HPI [facility] Chief Complaint: Initial visit Details: JENNIFER CANTRELL, is a 72 F who presents to the office today for an initial visit. She is a pleasant lady who had presented to [facility] in November 2017 with shortness of breath. She apparently underwent a cardiac catheterization and evaluation and subsequently underwent a mitral valve replacement with a 25 mm tissue prosthesis, clipping of the left atrial appendage with a 40 mm atrial cure clip, saphenous vein graft bypassing with a saphenous vein graft to the posterior descending artery and the right and left cryo- maze procedure. Following discharge she underwent placement of a dual-chamber permanent pacemaker. She is currently domiciled in the halfway and has been short of breath and has been running low blood pressures. She had been admitted with hypoxia requiring BiPAP treatment. She has had no dizziness or diaphoresis no near syncope or syncope. She underwent repeat echocardiograms at [facility] in May which demonstrated an ejection fraction of 55-60%, aortic sclerosis, stable bioprosthetic mitral valve mean gradient of 13 mmHg. A follow-up echocardiogram in June 2018 demonstrated similar numbers. She has been compliant with her medications which have been administered to her in the halfway. She has had no dizziness or diaphoresis no near syncope or syncope. Her physical exam here today demonstrates clear lung dong irregular rate and rhythm and 1+ pitting edema with cold extremities. Intake Vital Signs08/01/18 Height 5 ft Intake Visit Reasons: S/P Hosp PCU heart failure Allergies simvastatin [From Zocor] Allergy (Verified 08/01/18 13:52) Unknown Medications Acetaminophen 650 mg PO Q4H PRN PRN 07/04/18 [History Confirmed 08/01/18] Apixaban [Eliquis] 2.5 mg PO BID 07/04/18 [History Confirmed 08/01/18] Bisacodyl 10 mg OR DAILY PRN PRN 07/04/18 [History Confirmed 08/01/18] Calcium Carbonate 500 mg PO TID 07/04/18 [History Confirmed 08/01/18] Glucagon 1 mg IM X1 PRN 07/04/18 [History Confirmed 08/01/18] Insulin Lispro [Humalog] See Protocol SQ 4X/DAY 07/04/18 [History Confirmed 08/01/18] Ipratropium/Albuterol Sulfate [Duoneb] 3 ml INHALATION Q2H PRN PRN 07/04/18 [History Confirmed 08/01/18] Magnesium Hydroxide [Milk Of Magnesia] 30 ml PO DAILY PRN PRN 07/04/18 [History Confirmed 08/01/18] Melatonin/Pyridoxine HCl (B6) [Melatonin 3 mg Tablet] 1 ea PO QHS PRN PRN 07/04/18 [History Confirmed 08/01/18] Na Phos,M-B/Na Phos,Di-Ba [Fleet Enema] 133 ml OR DAILY PRN PRN 07/04/18 [History Confirmed 08/01/18] Omeprazole 20 mg PO DAILY 07/04/18 [History Confirmed 08/01/18] Sennosides [Senna] 8.6 mg PO DAILY PRN PRN 07/04/18 [History Confirmed 08/01/18] Ferrous Sulfate 325 mg PO DAILY@1200 tab 07/24/18 [Rx Confirmed 08/01/18] Furosemide [Lasix] 40 mg PO DAILY tab 07/24/18 [Rx Confirmed 08/01/18] Potassium Chloride [K-Dur] 10 meq PO DAILYCM tab 07/24/18 [Rx Confirmed 08/01/18] carvedilol 3.125 mg tablet 3.125 mg PO BID tab 07/24/18 [Rx Confirmed 08/01/18] PFSH Medical History Pericarditis (Chronic) Non-rheumatic mitral valve stenosis (Chronic) Non-rheumatic mitral regurgitation (Chronic) Secondary pulmonary arterial hypertension (Chronic) Non-rheumatic tricuspid valve insufficiency (Chronic) Right bundle branch block (RBBB) (Chronic) Atherosclerosis of coronary artery of [place] heart without angina pectoris (Chronic) Acute on chronic diastolic (congestive) heart failure (Chronic) Paroxysmal atrial fibrillation (Chronic) Recurrent pleural effusion on right (Acute) CVA (cerebral vascular accident) (Chronic) (HFpEF) heart failure with preserved ejection fraction (Chronic) COPD (chronic obstructive pulmonary disease) (Chronic) Chronic kidney disease, stage 3 (Chronic) Dysphagia (Chronic) Iron deficiency anemia (Chronic) Type 2 diabetes mellitus (Chronic) Sepsis (Resolved) Surgical History H/O mitral valve replacement with cardiopulmonary bypass (Resolved 11/20/17) Presence of permanent cardiac pacemaker (Chronic 06/2018) History of maze procedure (Resolved 11/20/17) History of thoracentesis (Resolved 07/23/18) Hx of cholecystectomy (Resolved) Family History Mother Diabetes Heart disease Hypertension Father Heart disease Hypertension Diabetes CVA (cerebral vascular accident) Social History Smoking Status: Former smoker ROS Const Const: Positive for fatigue and weakness (Has not ambulated in 2 months); negative for difficulty sleeping, frequent falls, excessive sweating or headache(s) Eyes Eyes: Negative for loss of peripheral vision, transient loss of vision, blurry vision, tunnel vision or double vision ENT ENT: Negative for headache(s), dizziness, Nosebleed/epistaxis or balance problems Cardio Chest Pain: No Palpitations: No Edema: None Muscle aches with walking: None Resp Respiratory: Positive for SOB with activity and paroxysmal nocturnal dyspnea; negative for SOB orthopnea\SOB lying down, Cough or SOB at rest GI GI: Negative nausea, heartburn, black,tarry stools or vomiting : Negative for hematuria Musc Musc: Negative for balance problems, muscle aches/ myalgia, muscle weakness or joint pain Skin Skin: Negative non-healing lesions, unusual bruising or rash Neuro Neuro: Positive for weakness (Has not ambulated in 2 months), lack of coordination and other (dysphagia); negative for frequent falls, headache(s), blurry vision, double vision, dizziness, lightheadedness, orthostatic symptoms, near syncope or syncope Louie Hematologic/Lymphatic: Negative for easy bruising or easy bleeding Endo Endo: Positive for fatigue; negative for excessive sweating or increased thirst/drinking Psych Psych: Negative for anxiety or depression Allergy Allergy/Immunology: Negative for hives, Negative for rash Cardiology Exam Const Appearance: cooperative, healthy appearing, well developed, well groomed and no acute distress Nutritional Appearance: well nourished and average body habitus Orientation: alert, awake and oriented x3 Head Head: normal to inspection, normocephalic and atraumatic Ears: hearing grossly normal bilaterally and external ears normal Nose: external nose normal, nasal mucous membranes and turbinates normal, nares normal, septum normal, no nasal discharge Face and Sinus: face symmetric Mouth: oral mucosae normal, tongue normal, oropharynx normal and moist mucous membranes Teeth and gingiva: dentition normal Throat: posterior oropharynx normal, tonsils normal and uvula midline Eyes General: appearance normal, both eyes and all related structures Eyelids: eyelids normal Conjunctivae: conjunctivae normal Pupils: PERRL, normal by confrontation and accommodation normal EOM: EOM intact bilaterally Neck Neck: normal visual inspection, trachea midline and no JVD JVD: +5 Carotids: normal carotid upstroke and bounding pulses Chest Chest inspection: normal inspection of the chest, symmetric chest movement and normal respiratory effort Auscultation: Bilateral: Clear to Auscultation Cardio Palpation: normal PMI Rate: regular rate Rhythm: regular rhythm Heart sounds: S1 normal, S2 normal and normal, physiologic split S2; negative rub, gallop or murmur GI GI: normal to inspection, soft, no hepatosplenomegaly and bowel sounds present Neuro General: alert, awake, oriented x3, no focal sensory deficit, gait normal and moves all extremities Skin Skin: no rashes or lesions noted Extremities Pulses: Normal: Right Femoral Pulse, Left Femoral Pulse, Right Dorsalis Pedis Pulse, Left Dorsalis Pedis Pulse, Right Posterior Tibial Pulse, Left Posterior Tibial Pulse, Right Radial Pulse, Left Radial Pulse Lower Extremity Edema: None: Bilateral Musculoskel Musculoskeletal: No joint tenderness Psych Psychological: normal affect Assessment AND Plan 1. H/O mitral valve replacement with cardiopulmonary bypass Z95.2 CABG x 1 SVG-PDA , MVR w/ 25 mm tissue valve and R AND L cryo-maze procedure w/ left atrial clip 11/20/17 Plan She is status post mitral valve replacement and status post bypass surgery. She has had postoperative echocardiograms which have demonstrated stable function of her mitral valve. My recommendation at this time is to continue to observe her. She will require antibiotic prophylaxis. 2. Presence of permanent cardiac pacemaker Z95.0 [employer] Plan She is status post permanent pacemaker implantation. We will schedule to have her permanent pacemaker checked in our office. 3. Acute on chronic diastolic (congestive) heart failure I50.33 Plan She does have a history of acute on chronic diastolic heart failure I would recommend increasing her diuretic to 60 mg once a day especially due to her renal dysfunction. Further recommendations to be made depending on the response to the above. She still appears to have a pleural effusion I would recommend confirming the above with a chest x-ray. 4. Paroxysmal atrial fibrillation I48.0 Plan She does have a history of paroxysmal atrial fibrillation. Her ventricular response rate does not appear to be very well controlled. She will remain on anticoagulation with the apixaban and we will attempt to increase her beta-kameron. At this time due to her low blood pressure I would discontinue the carvedilol and put her on Toprol-XL 25 mg a day Plan Detail Follow Up 6 Weeks (mmm) Coding Level of Care Code Off vis,new,level 5 Diagnoses H/O mitral valve replacement with cardiopulmonary bypass Z95.2 Presence of permanent cardiac pacemaker Z95.0 Acute on chronic diastolic (congestive) heart failure I50.33 Paroxysmal atrial fibrillation I48.0 Coding Level of Care Code Off vis,new,level 5 Diagnoses H/O mitral valve replacement with cardiopulmonary bypass Z95.2 Presence of permanent cardiac pacemaker Z95.0 Acute on chronic diastolic (congestive) heart failure I50.33 Paroxysmal atrial fibrillation I48.0 Supplemental Info Supplemental Information Diagnostics Electrocardiogram 07/18/18 Chest X-Ray 07/24/18 08/01/18 9735 <Electronically signed by Srinivas Montgomery MD> Date Srinivas Montgomery MD Cosigner Signature: Date (if applicable) CC: Ajith Sainz DO DISCHARGE SUMMARY Observed: 07/24/2018 Status: F Source: [facility] 2:01 PM [facility] REPOSITORY [facility] Medical Records Department [address] [place] [address] Discharge Summary 07/24/18 1311 MR#: [id number] Acct: [id number] Name: JENNIFER CANTRELL Rep #: [id number] : 1945 72 From: Damien JARA PCP: Ajith Sainz DO Status: ADM IN Y Location: [facility] [id number] <Damien Rendon - Last Filed: 07/24/18 13:17> Discharge Date and Diagnosis - Problem List Patient Problems: Active and Suspected Problems (Last Updated 07/18/18 @ 16:53 by Neil Villagran DO) Recurrent pleural effusion on right (Acute) CRISTIANA (acute kidney injury) (Acute) (HFpEF) heart failure with preserved ejection fraction (Acute) Date of Admission: 07/18/18 Date of Discharge: 07/24/18 - Primary Discharge Diagnosis Active and Suspected Problems (Last Updated 07/18/18 @ 16:53 by Neil Villagran DO) Recurrent transudative pleural effusion on right (Acute) 2/2 acute on chronic diastolic CHF exacerbation CRISTIANA on CKDIII Dysphagia with dietary noncompliance Chronic Afib CAD with prior CABG Chronic iron def anemia/thrombocytopenia - Secondary Discharge Diagnosis Chronic Problems (Last Updated 07/18/18 @ 16:53 by Neil Villagran DO) Chronic respiratory failure with hypoxia (Chronic) Iron deficiency anemia (Chronic) Dysphagia (Chronic) Status post coronary artery bypass graft (Chronic) Chronic atrial fibrillation (Chronic) Stage III chronic kidney disease (Chronic) CAD (coronary artery disease) (Chronic) Hospital Course and Treatment Imaging Results: RAD/Chest 1 View (Portable) IMPRESSION: Bilateral pleural effusions with bibasilar atelectasis and/or infiltrate superimposed on CHF. US/Thoracentesis W US IMPRESSION: Ultrasound-guided right thoracentesis. 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 She was admitted to the PCU and started on lasix. She underwent a thoracentesis and 1120 cc was drained, which appeared to be transudative. Her SOB and lung sounds improved significantly following this. She had swallowing issues while here and speech placed her on a mechanical soft and nectar thickened liquid diet - unfortunately her son brought her thin fluids and she was drinking these despite her restrictions. Also nursing noted that on past admissions he had also brought her fast food despite her CHF. The patient will need to continue a strict sodium controlled diet and have daily weights checked. She will return to the SNF for further rehab. She was discharged to SNF in stable condition. Please follow up with cardiology in 2 weeks, pulmonology in 2 weeks, and with the PCP in 1-2 weeks. Home lasix dose was increased for DC, and she will need a BMP in three days. This patient was seen by Damien Rendon PA-C under the supervision of Doctor Jesus. [] Patient Problems: Active and Suspected Problems (Last Updated 07/18/18 @ 16:53 by Neil Villagran DO) Recurrent pleural effusion on right (Acute) CRISTIANA (acute kidney injury) (Acute) (HFpEF) heart failure with preserved ejection fraction (Acute) - Physical Exam General: Alert, Oriented x3, Cooperative, - - frail HEENT: Atraumatic, PERRLA, EOMI, Normocephalic Neck: Supple, No JVD, Negative Carotid Bruits Lungs: Diminished Cardiovascular: Regular rate, No murmurs Abdomen: Bowel Sounds Present, Soft, Non Tender Extremities: No edema, Capillary Refill Less than 3 Seconds Skin: No rashes, No breakdown Musculoskeletal: No Tenderness to Palpation of Joints or Extremities Neurological: Cranial nerves II-XII grossly intact Psych/Mental Status: Normal Affect, Appropriate, Alert and oriented to time, place, person, mood and affect Vital Signs Temp Pulse Resp BP Pulse Ox 98.4 F 68 16 94/61 94 07/24/18 10:05 07/24/18 13:03 07/24/18 13:03 07/24/18 10:05 07/24/18 10:05 Oxygen Flow Rate (L/min) [3] 5 Oxygen Flow Rate (L/min) [2] 5 Oxygen Flow Rate (L/min) [1 ( 5 Initial Baseline)] Oxygen Flow Rate (L/min) 3 Oxygen Delivery Method [3] Nasal Cannula Oxygen Delivery Method [2] Nasal Cannula Oxygen Delivery Method [1 ( Nasal Cannula Initial Baseline)] Oxygen Delivery Method Nasal Cannula Weight: 110 lb 3.698 oz Body Mass Index (BMI) 21.9 Intake and Output for Last 24 Hours Intake Total 200 / 200 240 / 240 240 / 240 Balance 200 / 200 240 / 240 240 / 240 Microbiology Past 72 Hours 07/23/18 13:40 Gram Stain - Final Fluid - Pleural (Lung) Body Fluid Culture - Preliminary 07/18/18 14:55 Blood Culture - Final Laboratory Tests Past 24 Hrs Sodium Sodium 146 H Potassium 4.4 Chloride 106 Carbon Dioxide 31.0 Anion Gap 9 BUN 34 H POC Glucose POC Glucose 157 H 166 H 201 H POC Glucose 204 H Discharge Diet: Low fat/ Low Cholesterol, 2000 mg Sodium Diet Discharge Activity: Return to Normal Activity Home Medications: Medications to take at Discharge Acetaminophen 650 mg PO Q4H PRN PRN 07/04/18 Apixaban [Eliquis] 2.5 mg PO BID 07/04/18 Bisacodyl 10 mg RC DAILY PRN PRN 07/04/18 Calcium Carbonate 500 mg PO TID 07/04/18 Glucagon 1 mg IM X1 PRN 07/04/18 Insulin Lispro [Humalog] See Protocol SQ 4X/DAY 07/04/18 Ipratropium/Albuterol Sulfate [Duoneb] 3 ml INHALATION Q2H PRN PRN 07/04/18 Magnesium Hydroxide [Milk Of Magnesia] 30 ml PO DAILY PRN PRN 07/04/18 Melatonin/Pyridoxine HCl (B6) [Melatonin 3 mg Tablet] 1 each PO QHS PRN PRN 07/04/18 Na Phos,M-B/Na Phos,Di-Ba [Fleet Enema] 133 ml RC DAILY PRN PRN 07/04/18 Omeprazole 20 mg PO DAILY 07/04/18 Sennosides [Senna] 8.6 mg PO DAILY PRN PRN 07/04/18 Carvedilol [Coreg (Beta Kameron)] 3.125 mg PO BID tablet 07/24/18 Ferrous Sulfate 325 mg PO DAILY@1200 tablet 07/24/18 Furosemide [Lasix] 40 mg PO DAILY tablet 07/24/18 Potassium Chloride [K-Dur] 10 meq PO DAILYCM tablet 07/24/18 Primary Care Physician: Ajith Sainz DO [Primary Care Provider] - Please follow up with your Primary Care Physician in: 1-2 weeks Please Follow Up With: Bk Castillo MD When: 2 weeks Please Follow Up With: John Berger DO When: in 2-3 weeks for recurrent pleural effusion Disposition: Longterm facility Minutes spent on discharge:: 35 Patient Condition:: Stable Medical Necessity - Tobacco Use Smoking Status: Former smoker Tobacco Use: Non-smoker Meaningful Use Info Meaningful Use Diagnoses (Choose all that apply): CHF - CHF BAILEE/ARB ordered at discharge?: No Reason BAILEE/ARB not ordered?: Worsening renal disease Documented LVEF (%): 65 <Luis Daniel Lee - Last Filed: 07/24/18 14:01> Discharge Date and Diagnosis - Primary Discharge Diagnosis Active and Suspected Problems (Last Updated 07/18/18 @ 16:53 by Neil Villagran DO) Recurrent pleural effusion on right (Acute) CRISTIANA (acute kidney injury) (Acute) (HFpEF) heart failure with preserved ejection fraction (Acute) - Secondary Discharge Diagnosis Chronic Problems (Last Updated 07/18/18 @ 16:53 by Neil Villagran DO) Chronic respiratory failure with hypoxia (Chronic) Iron deficiency anemia (Chronic) Dysphagia (Chronic) Status post coronary artery bypass graft (Chronic) Chronic atrial fibrillation (Chronic) Stage III chronic kidney disease (Chronic) CAD (coronary artery disease) (Chronic) Hospital Course and Treatment Imaging Results: 07/24/18 05:55 CXR [Chest PA and Lateral] [RAD] AM (NON MEDS) Consultations 07/21/18 23:52 Consult: Onc/Wound/lottery sales clerk Routine Comment: Reason for Consult:: pressure sore to coccyx Summary of Care Provided: This patient was seen in conjunction with Damien JARA. I have independently interviewed and examined the patient and reviewed pertinent history, examination findings, laboratory and plan of management. I have reviewed the note and agree with the documented findings with the few additional points. In brief, patient is admitted for acute on chronic diastolic heart failure secondary to acute on recurrent pleural effusion. Patient had right-sided ultrasound- guided thoracocentesis with 1150 mL paula colored fluid aspirated. Fluid analysis consistent with transudate, total fluid protein 0.7, fluid LDH 153. Initial Gram stain of pleural fluid does not show organism. Infectious workup has so far been negative. Patient has acute on chronic respiratory failure and acute kidney and CKD stage III. The patient is being discharged to SNF Discharge medication reconciliation done. Discharge follow- up instructions completed. Discharge process discussed with the patient. Total time spent, exact 35 minutes on discharge meds reconciliation, examination, review of imaging and blood test and discussion with the patient on follow-up instructions. I have discussed my assessment with Damien JARA and orders have been reviewed. [] - Physical Exam Vital Signs Temp Pulse Resp BP Pulse Ox 97.6 F L 68 22 H 95/62 94 07/24/18 12:05 07/24/18 13:11 07/24/18 13:11 07/24/18 12:05 07/24/18 13:11 Oxygen Flow Rate (L/min) [3] 5 Oxygen Flow Rate (L/min) [2] 5 Oxygen Flow Rate (L/min) [1 ( 5 Initial Baseline)] Oxygen Flow Rate (L/min) 3 Oxygen Delivery Method [3] Nasal Cannula Oxygen Delivery Method [2] Nasal Cannula Oxygen Delivery Method [1 ( Nasal Cannula Initial Baseline)] Oxygen Delivery Method Nasal Cannula Weight: 110 lb 3.698 oz Body Mass Index (BMI) 21.9 Intake and Output for Last 24 Hours Intake Total 200 / 200 240 / 240 240 / 240 Balance 200 / 200 240 / 240 240 / 240 Microbiology Past 72 Hours 07/23/18 13:40 Gram Stain - Final Fluid - Pleural (Lung) Body Fluid Culture - Preliminary 07/18/18 14:55 Blood Culture - Final Laboratory Tests Past 24 Hrs Sodium Sodium 146 H Potassium 4.4 Chloride 106 Carbon Dioxide 31.0 Anion Gap 9 BUN 34 H POC Glucose POC Glucose 157 H 166 H 201 H POC Glucose 204 H Code Visit Inpatient E AND M: 26176 Disch Hosp 07/24/18 1323 <Electronically signed by Damien JARA> Date Damien JARA 07/24/18 1401<Electronically signed by Luis Daniel Lee MD> Cosigner Signature (if applicable): Date Luis Daniel Lee MD CC: ESTEFANI Rendon; Luis Daniel Lee MD; Ajith Sainz DO Signed TRANSFER TO [facility] Observed: 07/24/2018 Status: F Source: [facility] 11:27 AM [facility] REPOSITORY [facility] Medical Records Department [address] [place] [address] Transfer to Extended Care MR#: [id number] Acct: [id number] Name: JENNIFER CANTRELL Rep #: [id number] : 1945 72 From: Damien JARA PCP: Ajith Sainz DO Status: ADM IN JENNIFER CANTRELL (Patient) (Health Ins. Claim No.) (Day of Discharge to Facility) Certification of patient admission REQUIRED AT TIME OF ADMISSION. I CERTIFY THAT POST-HOSPITAL ECF SERVICES ARE REQUIRED TO BE GIVEN ON AN IN-PATIENT BASIS BECAUSE OF THE ABOVE NAMED PATIENT'S NEED FOR FPC CARE ON A CONTINUING BASIS FOR THE CONDITION(S) FOR WHICH HE/SHE WAS RECEIVING IN-PATIENT HOSPITAL SERVICES PRIOR TO HIS/HER TRANSFER TO THE F. 07/24/18 1055 <Electronically signed by Damien JARA> Date Damien JARA <Damien Rendon - Last Filed: 07/24/18 10:50> - Diet 07/23/18 09:35 Diet: Strict cardiac, sodium controlled diet <2g sodium daily Food consistency:: Mechanical Soft/Ground Liquid Consistency:: Darrow Thick Dietary Modifications:: Mechanical Soft Diet Darrow Thick Liquids Is pt able to select menu?: No Diet Comments: Supervision; seated at 90 degrees; meds crushed in purees - Routine Orders/Code Status Suppository Type: Dulcolax 10mg Suppository Frequency: Daily PRN O2 Frequency: Continuous Keep PO Greater than or Equal to (%): 89 Routine Lab Work: CBC - 5 days, BMP - 3 days Code Status: Full Code - Wound(s) LFA Wound Type: Abrasion coccyx Wound Type: Pressure Injury SACRUM Wound Type: Pressure Injury Dressing Change: DUODERM RIGHT MID BACK Wound Type: Pressure Injury Dressing Change: DUODERM Both forearms Wound Type: scabs - Therapies Physical Therapy: Eval and Treat Occupational Therapy: Eval and Treat Speech Therapy: Eval and Treat - Problem/Diagnosis (1) (HFpEF) heart failure with preserved ejection fraction Status: Acute Current Visit: Yes (2) Recurrent pleural effusion on right Status: Acute Current Visit: Yes (3) CRISTIANA (acute kidney injury) Status: Acute Current Visit: Yes (4) Chronic respiratory failure with hypoxia Status: Chronic Current Visit: Yes (5) Iron deficiency anemia Status: Chronic Current Visit: Yes (6) Dysphagia Status: Chronic Current Visit: Yes (7) Status post coronary artery bypass graft Status: Chronic Current Visit: No (8) Chronic atrial fibrillation Status: Chronic Current Visit: No (9) CAD (coronary artery disease) Status: Chronic Current Visit: No - Allergies/Procedures Done in Hospital Allergies/Adverse Reactions: Allergies simvastatin [From Zocor] Allergy (Verified 07/18/18 14:07) Unknown Procedures: Thoracentesis - Type of Care/Length of Stay Estimated LOS: Convalescent Care Less Than 30 days Type of Care Needed: Skilled Rehab Potential: Fair Prognosis: Fair - Additional Orders/Day of Discharge H AND P will serve as current which was dated: 07/18/18 Day of Discharge: 07/24/18 - Dietary and Speech Recommendations Dietitian Recommendations/Changes: Suggest therapeutic diet change to no added salt/1500 ml FR as indicated if PO improves at meals. Will d/c ensure enlive on medpass--pt refusing most ONS. May need to consider TF support as PO is not improving. - Follow Up Care Primary Care Physician: Ajith Sainz DO [Primary Care Provider] - Please follow up with your Primary Care Physician in: 1-2 weeks Please Follow Up With: Bk Castillo MD When: 2 weeks <Luis Daniel Lee - Last Filed: 07/24/18 11:27> - Diet 07/23/18 09:35 Diet: Regular Diet Food consistency:: Mechanical Soft/Ground Liquid Consistency:: Darrow Thick Dietary Modifications:: Mechanical Soft Diet Darrow Thick Liquids Is pt able to select menu?: No Diet Comments: Supervision; seated at 90 degrees; meds crushed in purees - Wound(s) LFA Wound Type: Abrasion coccyx Wound Type: Pressure Injury SACRUM Wound Type: Pressure Injury Dressing Change: DUODERM RIGHT MID BACK Wound Type: Pressure Injury Dressing Change: DUODERM Both forearms Wound Type: scabs right back Wound Type: Puncture - Follow Up Care Please Follow Up With: Brown,John, DO When: in 2-3 weeks for recurrent pleural effusion 07/24/18 1055 <Electronically signed by Damien JARA> Date Damien JARA CC: Ajith Sainz DO Signed BEDSIDE GLUCOSE Collected: 07/24/2018 Status: F Source: [facility] 11:06 AM [facility] REPOSITORY TYPE CODE TESTS RESULT OUT OF REFERENCE UNITS RANGE LAB L501.080 70-110 mg/dL High BEDSIDE GLU 157 Result Comment: MANAGEMENT OF PATIENT CARE PER NURSING PROTOCOL Performed By: #### L501.080 #### [facility] Laboratory Point of Care [address] [place] [address] BEDSIDE GLUCOSE Collected: 07/24/2018 Status: F Source: [facility] 6:56 AM [facility] REPOSITORY TYPE CODE TESTS RESULT OUT OF REFERENCE UNITS RANGE LAB L501.080 70-110 mg/dL High BEDSIDE GLU 166 Result Comment: MANAGEMENT OF PATIENT CARE PER NURSING PROTOCOL Performed By: #### L501.080 #### [facility] Laboratory Point of Care [address] [place] [address] BASIC METABOLIC Collected: 07/24/2018 Status: F Source: [facility] PROFILE (BMP) 5:10 AM [facility] REPOSITORY TYPE CODE TESTS RESULT OUT OF RANGE REFERENCE UNITS LAB L501.0100 74-106 mg/dL High GLU 161 Result Comment: Fasting Glucose result greater than or equal to 126 mg/dL suggests DIABETES MELLITUS per A.D.A. criteria. Please note revised GLUCOSE reference range effective 2017. LAB L501.1000 7-18 mg/dL High BUN 34 LAB L501.1100 0.55-1.02 mg/dL High CREAT,SERUM 2.02 Result Comment: The validity of the calculated GFR AND GFRAA in patients over 70 years has not been determined. Clinical correlation is essential. LAB L501.1110 >60 mL/min Low EST GFR 26 Result Comment: Non- GFR Calc LAB L501.1115 >60 mL/min Low EST GFR - AA 31 Result Comment: GFR Calc LAB L501.1255 ml/min Normal Estimated CRCL 17.55 LAB L501.1300 10-20 RATIO Normal BUN/CRE 16.8 LAB L501.2200 8.5-10 mg/dL Normal .1 CA 8.6 LAB L501.5300 136-14 mmol/L High 5 NA 146 LAB L501.5600 3.5-5. mmol/L Normal 1 K 4.4 LAB L501.5900 98-107 mmol/L Normal CL 106 LAB L501.6100 21.0-3 mmol/L Normal 2.0 CO2 31.0 LAB L501.6200 5-15 Normal GAP 9 Performed By: #### L500.2500 #### [facility] [address] [facility] [place], [address] CHEST PA AND LATERAL Observed: 07/24/2018 Status: F Source: [place] 12:00 AM [facility] REPOSITORY [facility] Imaging Services [address] [place] [address] Chest PA and Lateral MR#: [id number] Acct: [id number] Name: JENNIFER CANTRELL Joni Rep #: [id number] : 1945 F 72 From: David Santamaria MD PCP: Ajith Sainz DO Status: DIS IN Study: Chest PA and Lateral Date of Exam: 07/24/18 Exam# [id number] Ordering Dr: Damien Rendon STUDY: X-RAY CHEST REASON FOR EXAM: Female, 72 years old. Shortness of breath and dyspnea. TECHNIQUE: AP and lateral views of the chest. COMPARISON: Comparison is made with prior study dated July 23, 2018. FINDINGS: EKG electrodes are seen. Since prior study, there is increasing right pleural effusion. There has been an increase in the CHF with bibasilar atelectasis and/or infiltration. Sternal cerclage wires are present from a prior sternotomy. Prior valve replacement. A left-sided dual-chamber pacemaker is seen. Normal mediastinum and billy. Normal visualized pulmonary arteries. There is atherosclerotic calcification of the aortic arch with tortuosity. There are diffuse degenerative changes of the visualized thoracic spine. Normal visualized ribs, clavicles, and shoulders. There is no demonstrated abnormality of the visualized soft tissue structures of the upper abdomen. RAD/Chest PA and Lateral IMPRESSION: Progressive increase in the right pleural effusion with CHF. Persistent bibasilar atelectasis and/or infiltrates. Electronically Signed: David Santamaria MD at 15:47 EST Tel [phone], Service support , CC: ESTEFANI Rendon; Ajith Sainz DO Mushroom Grower: Signed BEDSIDE GLUCOSE Collected: 07/23/2018 Status: F Source: [facility] 10:12 PM [facility] REPOSITORY TYPE CODE TESTS RESULT OUT OF REFERENCE UNITS RANGE LAB L501.080 70-110 mg/dL High BEDSIDE GLU 201 Result Comment: MANAGEMENT OF PATIENT CARE PER NURSING PROTOCOL Performed By: #### L501.080 #### [facility] Laboratory Point of Care [address] [place] [address] BEDSIDE GLUCOSE Collected: 07/23/2018 Status: F Source: [facility] 4:09 PM [facility] REPOSITORY TYPE CODE TESTS RESULT OUT OF REFERENCE UNITS RANGE LAB L501.080 70-110 mg/dL High BEDSIDE GLU 204 Result Comment: MANAGEMENT OF PATIENT CARE PER NURSING PROTOCOL Performed By: #### L501.080 #### [facility] Laboratory Point of Care [address] [place] [address] CHEST INSP/EXP 2 VIEW Observed: 07/23/2018 Status: F Source: [facility] 1:50 PM [facility]ORY [facility] [facility] Imaging Services [address] [place] [address] Chest Insp/Exp 2 View MR#: [id number] Acct: [id number] Name: JENNIFER CANTRELL Joni Rep #: [id number] : 1945 F 72 From: David Santamaria MD PCP: Ajith Sainz DO Status: ADM IN Study: Chest Insp/Exp 2 View Date of Exam: 07/23/18 Exam# [id number] Ordering Dr: David Santamaria MD STUDY: X-RAY CHEST REASON FOR EXAM: Female, 72 years old. The patient is status post right thoracentesis. TECHNIQUE: AP inspiration and expiration. COMPARISON: Comparison is made with prior examination dated July 18, 2018. FINDINGS: The patient is status post right thoracentesis. There is no evidence of pneumothorax. Residual small bilateral pleural effusions with underlying atelectasis. RAD/Chest Insp/Exp 2 View IMPRESSION: Status post right thoracentesis. There is no evidence of pneumothorax. Electronically Signed: David Santamaria MD at 13:29 EST Tel [phone], Service support , CC: David Santamaria MD; Ajith Sainz DO Mushroom Grower: Signed Observed: 07/23/2018 Status: F Source: MEMO CULTURE, BODY FLUID 1:40 PM [facility] REPOSITORY Gram Stain Acceptable Specimen? Acceptable Specimen(Evaluation not needed) Centrifuged Specimen? Culture performed on centrifuged specimen Gram Stain No organisms seen Body Fluid Cult Culture exhibits no growth. Cult, Anaerobic No growth in 5 days. Performed By: #### M100.1300 #### [facility], [address] BODY FLUID CELL Collected: 07/23/2018 Status: C Source: [place] COUNT+DIFF 1:40 PM [facility] REPOSITORY Order Comment: The reference range and other method performance specifications have not been established for this body fluid. The test must be integrated into the clinical context for interpretation. 50 cells counted for manual differental TYPE CODE TESTS RESULT OUT OF RANGE REFERENCE UNITS LAB L200.3380 0.000-0.000 10 3/ul High BFTC# 0.019 Result Comment: This is the Total Number of Nucleated Cell Types in the Body Fluid. LAB L200.3500 10 3/uL Normal 0.016 WBC/BF LAB L200.3510 % Normal 43.7 BF PMN WBC% LAB L200.3515 % Normal 56.3 BF MN WBC% LAB L200.3520 10 3/uL Normal 0.009 BF MN WBC# LAB L200.3525 10 3/uL Normal 0.007 BF PMN WBC# LAB L200.4400 Normal PATH COMM/BF Reviewed Result Comment: Negative for malignant cells. Zaki Astorga M.D. 07/24/18 AMENDED REPORT 07/24/18 1416 PATH COMM/BF previously reported as: May follow LAB L200.3100 SOURCE/BF THORACENTESIS Normal LAB L200.3200 COLOR/BF YELLOW Normal LAB L200.3300 APPEAR/BF CLEAR Normal LAB L200.3400 /mm3 RBC/BF 1 Normal LAB L200.3600 % PMN 32 Normal LAB L200.3700 % LYMPH 8 Normal LAB L200.3800 % MONO/BF 46 Normal LAB L200.3900 % MESOTHELIAL 14 Normal LAB L200.4420 BFM 2ND SEE COMMENT Normal SPEC Result Comment: AMENDED REPORT 07/24/181415 BFM 2ND SPEC previously reported as: SEE COMMENT Performed By: #### L200.0200 #### [facility] [address] [place], [place], [address] GLUCOSE, BODY FLUID Collected: 07/23/2018 Status: C Source: [place] 1:40 PM [facility] REPOSITORY Order Comment: BODY FLUID TYPE CODE TESTS RESULT OUT OF RANGE REFERENCE UNITS LAB L503.0100 40-70 mg/dL High GLU,BF 152 Result Comment: AMENDED REPORT 07/30/18 2304 GLU,BF previously reported as: 153 H mg/dL Performed By: #### L503.0100, L503.0300, L504.0250 #### [facility] [address] [place], [address] PROTEIN, BODY FLUID Collected: 07/23/2018 Status: F Source: [place] 1:40 PM [facility] REPOSITORY Order Comment: BODY FLUID TYPE CODE TESTS RESULT OUT OF RANGE REFERENCE UNITS LAB L503.0300 Not Establ. g/dL Normal 0.7 PROTEIN,BF Performed By: #### L503.0100, L503.0300, L504.0250 #### [facility] [address] [place], [address] LDH,BODY FLUID Collected: 07/23/2018 Status: F Source: [place] 1:40 PM [facility] REPOSITORY Order Comment: BODY FLUID TYPE CODE TESTS RESULT OUT OF RANGE REFERENCE UNITS LAB L504.0250 Not Establ. Units/l Normal LDH,BF 49 Performed By: #### L503.0100, L503.0300, L504.0250 #### [facility] [address] [place], [address] CYTOLOGY, BODY FLUID / Collected: 07/23/2018 Status: F Source: [place] CSF 1:40 PM [facility] REPOSITORY TYPE CODE TESTS RESULT OUT OF RANGE REFERENCE UNITS LAB L350.1000 SEE Normal PATHOLOGY CYTOLOGY,BF REPORT /CSF Result Comment: Specimen submitted to Anatomical Pathology Department for testing. Performed By: #### L350.1000 #### [facility] [address] [facility] [place], [address] BEDSIDE GLUCOSE Collected: 07/23/2018 Status: F Source: [place] 10:58 AM [facility] REPOSITORY TYPE CODE TESTS RESULT OUT OF REFERENCE UNITS RANGE LAB L501.080 70-110 mg/dL High BEDSIDE GLU 139 Result Comment: MANAGEMENT OF PATIENT CARE PER NURSING PROTOCOL Performed By: #### L501.080 #### [facility] Point of Care [address] [place] [address] 12 LEAD ELECTROCARDIOGRAM Observed: 07/23/2018 Status: F Source: [place] 10:05 AM [facility] REPOSITORY [facility] Cardiovascular Services [address] [place] [address] 12 Lead EKG 07/18/18 1438 MR#: [id number] Acct: [id number] Name: JENNIFER CANTRELL Rep #: [id number] : 1945 72 From: Srinivas Montgomery MD Attending Dr: Luis Daniel Lee MD Status: ADM IN Ordering Dr: Quintin Poole MD Date: 07/18/18 Location: [facility] Sex: F C Admitted: 07/18/18 Test Reason : SOB Blood Pressure : / mmHG Vent. Rate : 113 BPM Atrial Rate : 138 BPM P-R Int : 000 ms QRS Dur : 142 ms QT Int : 438 ms P-R-T Axes : 000 -80 125 degrees QTc Int : 600 ms Atrial fibrillation Left axis deviation Right bundle branch block Septal infarct , age undetermined Possible Lateral infarct , age undetermined Inferior infarct , age undetermined Abnormal ECG Confirmed by SRINIVAS MONTGOMERY MD ([id number]), features editor MUNA BOYKIN ([id number]) on 07/23/2018 10:04:44 AM Referred By: CORIE Confirmed By:SRINIVAS MONTGOMERY MD 07/23/18 1004 Date Srinivas Montgomery MD CC: Quintin Poole; Luis Daniel Lee MD; Ajith Sainz DO Signed BEDSIDE GLUCOSE Collected: 07/23/2018 Status: F Source: MEMO 6:42 AM [facility] REPOSITORY TYPE CODE TESTS RESULT OUT OF REFERENCE UNITS RANGE LAB L501.080 70-110 mg/dL High BEDSIDE GLU 149 Result Comment: MANAGEMENT OF PATIENT CARE PER NURSING PROTOCOL Performed By: #### L501.080 #### [facility] Point of Care [address] [place], [place] [address]. [place] [address] BASIC METABOLIC Collected: 07/23/2018 Status: F Source: MEMO PROFILE (BMP) 5:06 AM [facility] REPOSITORY TYPE CODE TESTS RESULT OUT OF RANGE REFERENCE UNITS LAB L501.0100 74-106 mg/dL High GLU 115 Result Comment: Fasting Glucose result from 100 to 125 mg/dL suggests IMPAIRED HOMEOSTASIS per A.D.A. criteria. Please note revised GLUCOSE reference range effective 2017. LAB L501.1000 7-18 mg/dL High BUN 24 LAB L501.1100 0.55-1.02 mg/dL High CREAT,SERUM 1.80 Result Comment: The validity of the calculated GFR AND GFRAA in patients over 70 years has not been determined. Clinical correlation is essential. LAB L501.1110 >60 mL/min Low EST GFR 29 Result Comment: Non- GFR Calc LAB L501.1115 >60 mL/min Low EST GFR - AA 35 Result Comment: GFR Calc LAB L501.1255 ml/min Normal Estimated CRCL 19.70 LAB L501.1300 10-20 RATIO Normal BUN/CRE 13.3 LAB L501.2200 8.5-10 mg/dL Low .1 CA 7.9 LAB L501.5300 136-14 mmol/L Normal 5 NA 141 LAB L501.5600 3.5-5. mmol/L Normal 1 K 4.6 LAB L501.5900 98-107 mmol/L Normal CL 107 LAB L501.6100 21.0-3 mmol/L Low 2.0 CO2 19.0 LAB L501.6200 5-15 Normal GAP 15 Performed By: #### L500.2500 #### [facility] [address] [place], [address] PROTHROMBIN TIME W/INR Collected: 07/23/2018 Status: F Source: [place] 5:06 AM [facility] REPOSITORY TYPE CODE TESTS RESULT OUT OF RANGE REFERENCE UNITS LAB L300.4150 11.7-14.9 SECONDS Normal PROTIME 12.9 LAB L300.4200 Normal INR 1.0 Performed By: #### L300.3900, L300.4310 #### [facility] [address] [place], [address] PARTIAL THROMBOPLAST Collected: 07/23/2018 Status: F Source: [place] TIME 5:06 AM [facility] REPOSITORY TYPE CODE TESTS RESULT OUT OF RANGE REFERENCE UNITS LAB L300.4310 24.1-36.2 Seconds Normal PTT 29.8 Performed By: #### L300.3900, L300.4310 #### [facility] [address] [place], [address] PROTEIN, TOTAL Collected: 07/23/2018 Status: F Source: [place] 5:06 AM [facility] REPOSITORY Order Comment: Comments: ok to add on Comments: ok to add on TYPE CODE TESTS RESULT OUT OF RANGE REFERENCE UNITS LAB L501.1500 6.4-8.2 g/dL Low T PROT 6.2 LAB L501.1950 2.2-4.2 g/dL Normal GLOB 3.9 LAB L501.2000 0.9-2.4 RATIO Low A/G 0.6 Performed By: #### L001.0705, L504.2610 #### [facility] [address] [place], [address] LDH Collected: 07/23/2018 Status: F Source: MEMO 5:06 AM [facility] REPOSITORY Order Comment: Comments: ok to add on Comments: ok to add on TYPE CODE TESTS RESULT OUT OF RANGE REFERENCE UNITS LAB L504.2610 84-246 U/L High LDH 426 Performed By: #### L001.0705, L504.2610 #### [facility] [address] [place], [address] FLUID/WASHING Observed: 07/23/2018 Status: F Source: MEMO 12:00 AM [facility] REPOSITORY Patient: JENNIFER CANTRELL : 1945 (72/F) Acct Num: [id number] [facility]: [facility] Unit Num: [id number] Loc: U [id number] Specimen: [id number] Received: 07/23/18 - 1443 Spec Type: Fluid TISSUES 1 TISSUES: THORACIC FLUID COMMENT Please make reference to previous specimen ([id number]) thoracentesis fluid for cytology with diagnosis of negative for malignant cells. CYTOLOGY GROSS Received is 110 ml of yellow cloudy fluid labeled with the patient's name and and designated per the requisition as thoracentesis. Submitted for cytology preparation including cell block. / 07/23/18 TC: CPT: 69796, 71381 CYTOLOGY STUDY Slides are reviewed. DIAGNOSIS CYTOLOGY Thoracentesis fluid for cytology (cytospin and cell block): Negative for malignant cells. SJ:emmanuel 07/24/18 HEADER OPERATION: Ultrasound-guided right thoracentesis PRE-OP DIAGNOSIS: Right pleural effusion TISSUE SUBMITTED: Thoracentesis fluid for cytology Signed Zaki Astorga MD 07/24/18 <signature on file> Performed By: #### PFLU #### [facility] [address] [place], [address] BEDSIDE GLUCOSE Collected: 07/22/2018 Status: F Source: MEMO 11:10 PM [facility] REPOSITORY TYPE CODE TESTS RESULT OUT OF REFERENCE UNITS RANGE LAB L501.080 70-110 mg/dL High BEDSIDE GLU 127 Result Comment: MANAGEMENT OF PATIENT CARE PER NURSING PROTOCOL Performed By: #### L501.080 #### [facility] Point of Care [address] [place] [address] BEDSIDE GLUCOSE Collected: 07/22/2018 Status: F Source: MEMO 4:38 PM [facility] REPOSITORY TYPE CODE TESTS RESULT OUT OF REFERENCE UNITS RANGE LAB L501.080 70-110 mg/dL High BEDSIDE GLU 140 Result Comment: MANAGEMENT OF PATIENT CARE PER NURSING PROTOCOL Performed By: #### L501.080 #### [facility] Point of Care [address] [place] [address] BEDSIDE GLUCOSE Collected: 07/22/2018 Status: F Source: MEMO 11:42 AM [facility] REPOSITORY TYPE CODE TESTS RESULT OUT OF REFERENCE UNITS RANGE LAB L501.080 70-110 mg/dL High BEDSIDE GLU 186 Result Comment: MANAGEMENT OF PATIENT CARE PER NURSING PROTOCOL Performed By: #### L501.080 #### [facility] Point of Care [address] [place] [address] BEDSIDE GLUCOSE Collected: 07/22/2018 Status: F Source: MEMO 6:52 AM [facility] REPOSITORY TYPE CODE TESTS RESULT OUT OF REFERENCE UNITS RANGE LAB L501.080 70-110 mg/dL High BEDSIDE GLU 141 Result Comment: MANAGEMENT OF PATIENT CARE PER NURSING PROTOCOL Performed By: #### L501.080 #### [facility] Point of Care [address] [place], [place] [address] CBC W/DIFF, AUTOMATED Collected: 07/22/2018 Status: F Source: MEMO 5:59 AM [facility] REPOSITORY TYPE CODE TESTS RESULT OUT OF RANGE REFERENCE UNITS LAB L100.1000 4.4-11.0 K/mm3 Normal WBC 6.4 LAB L100.1200 4.2-5.4 M/mm3 Low RBC 3.39 LAB L100.1300 12.0-15.0 g/dl Low HGB 10.0 LAB L100.1400 37-47 % Low HCT 33.0 LAB L100.1500 81-99 fL Normal MCV 97.3 LAB L100.1600 27.0-32.0 pg Normal MCH 29.5 LAB L100.1700 32-36 g/gl Low MCHC 30.3 LAB L100.1810 11.6-14.6 % High RDW CV 17.1 LAB L100.1820 35.1-43.9 fl High RDW SD 61.1 LAB L100.1900 150-450 K/mm3 Low PLT 147 LAB L100.2000 6.2-12.0 fl Normal MPV 10.3 LAB L100.2100 47-70 % High NEUT% 81.8 LAB L100.2200 19-41 % Low LY% 9.8 LAB L100.2300 0-10 % Normal MONO% 5.9 LAB L100.2400 0-5 % Normal EO% 1.4 LAB L100.2500 0-1 % Normal BASO% 0.6 LAB L100.2550 0.0-0.9 % Normal IM GRAN % 0.500 Result Comment: IG% - Immature Granulocytes (promyelocytes, myelocytes and metamyelocytes) > 1% indicates that a LEFT SHIFT is Present. LAB L100.2620 2.0-7.7 X10 3/uL Normal Absolute Neut 5.3 LAB L100.2720 0.83-4.51 X10 3/ul Low Absolute Lymph 0.63 Performed By: #### L100.0100 #### [facility] [address] [place], [place], [address] BASIC METABOLIC Collected: 07/22/2018 Status: F Source: MEMO PROFILE (BMP) 5:59 AM [facility] REPOSITORY TYPE CODE TESTS RESULT OUT OF RANGE REFERENCE UNITS LAB L501.0100 74-106 mg/dL High GLU 151 Result Comment: Fasting Glucose result greater than or equal to 126 mg/dL suggests DIABETES MELLITUS per A.D.A. criteria. Please note revised GLUCOSE reference range effective 2017. LAB L501.1000 7-18 mg/dL High BUN 32 LAB L501.1100 0.55-1.02 mg/dL High CREAT,SERUM 1.95 Result Comment: The validity of the calculated GFR AND GFRAA in patients over 70 years has not been determined. Clinical correlation is essential. LAB L501.1110 >60 mL/min Low EST GFR 27 Result Comment: Non- GFR Calc LAB L501.1115 >60 mL/min Low EST GFR - AA 32 Result Comment: GFR Calc LAB L501.1255 ml/min Normal Estimated CRCL 18.18 LAB L501.1300 10-20 RATIO Normal BUN/CRE 16.4 LAB L501.2200 8.5-10 mg/dL Normal .1 CA 8.6 LAB L501.5300 136-14 mmol/L Normal 5 NA 142 LAB L501.5600 3.5-5. mmol/L Normal 1 K 4.4 LAB L501.5900 98-107 mmol/L Normal CL 104 LAB L501.6100 21.0-3 mmol/L Normal 2.0 CO2 27.0 LAB L501.6200 5-15 Normal GAP 11 Performed By: #### L500.2500 #### [facility] [address] [facility] [place], [place], [address] BEDSIDE GLUCOSE Collected: 07/21/2018 Status: F Source: MEMO 10:01 PM [facility] REPOSITORY TYPE CODE TESTS RESULT OUT OF REFERENCE UNITS RANGE LAB L501.080 70-110 mg/dL High BEDSIDE GLU 180 Result Comment: MANAGEMENT OF PATIENT CARE PER NURSING PROTOCOL Performed By: #### L501.080 #### [facility] Point of Care [address] [facility] [place], [place] [address] BEDSIDE GLUCOSE Collected: 07/21/2018 Status: F Source: [place] 5:00 PM [facility] REPOSITORY TYPE CODE TESTS RESULT OUT OF REFERENCE UNITS RANGE LAB L501.080 70-110 mg/dL High BEDSIDE GLU 147 Result Comment: MANAGEMENT OF PATIENT CARE PER NURSING PROTOCOL Performed By: #### L501.080 #### [facility] Point of Care [address] [place] [address] BEDSIDE GLUCOSE Collected: 07/21/2018 Status: F Source: MEMO 11:31 AM [facility] REPOSITORY TYPE CODE TESTS RESULT OUT OF REFERENCE UNITS RANGE LAB L501.080 70-110 mg/dL High BEDSIDE GLU 163 Result Comment: MANAGEMENT OF PATIENT CARE PER NURSING PROTOCOL Performed By: #### L501.080 #### [facility] Point of Care [address] [place] [address] BEDSIDE GLUCOSE Collected: 07/21/2018 Status: F Source: MEMO 7:02 AM [facility] REPOSITORY TYPE CODE TESTS RESULT OUT OF REFERENCE UNITS RANGE LAB L501.080 70-110 mg/dL High BEDSIDE GLU 117 Result Comment: MANAGEMENT OF PATIENT CARE PER NURSING PROTOCOL Performed By: #### L501.080 #### [facility] Point of Care [address] [place] [address] BASIC METABOLIC Collected: 07/21/2018 Status: F Source: MEMO PROFILE (BMP) 5:43 AM [facility] REPOSITORY TYPE CODE TESTS RESULT OUT OF RANGE REFERENCE UNITS LAB L501.0100 74-106 mg/dL High GLU 112 Result Comment: Fasting Glucose result from 100 to 125 mg/dL suggests IMPAIRED HOMEOSTASIS per A.D.A. criteria. Please note revised GLUCOSE reference range effective 2017. LAB L501.1000 7-18 mg/dL High BUN 28 LAB L501.1100 0.55-1.02 mg/dL High CREAT,SERUM 1.83 Result Comment: The validity of the calculated GFR AND GFRAA in patients over 70 years has not been determined. Clinical correlation is essential. LAB L501.1110 >60 mL/min Low EST GFR 29 Result Comment: Non- GFR Calc LAB L501.1115 >60 mL/min Low EST GFR - AA 35 Result Comment: GFR Calc LAB L501.1255 ml/min Normal Estimated CRCL 19.37 LAB L501.1300 10-20 RATIO Normal BUN/CRE 15.3 LAB L501.2200 8.5-10 mg/dL Low .1 CA 8.3 LAB L501.5300 136-14 mmol/L Normal 5 NA 142 LAB L501.5600 3.5-5. mmol/L Normal 1 K 4.2 LAB L501.5900 98-107 mmol/L Normal CL 103 LAB L501.6100 21.0-3 mmol/L Normal 2.0 CO2 30.0 LAB L501.6200 5-15 Normal GAP 9 Performed By: #### L500.2500 #### [facility] [address] [facility] [address] BEDSIDE GLUCOSE Collected: 07/20/2018 Status: F Source: MEMO 10:52 PM [facility] REPOSITORY TYPE CODE TESTS RESULT OUT OF REFERENCE UNITS RANGE LAB L501.080 70-110 mg/dL High BEDSIDE GLU 114 Result Comment: MANAGEMENT OF PATIENT CARE PER NURSING PROTOCOL Performed By: #### L501.080 #### [facility] Point of Care [address] [place] [address] BEDSIDE GLUCOSE Collected: 07/20/2018 Status: F Source: MEMO 4:57 PM [facility] REPOSITORY TYPE CODE TESTS RESULT OUT OF REFERENCE UNITS RANGE LAB L501.080 70-110 mg/dL High BEDSIDE GLU 111 Result Comment: MANAGEMENT OF PATIENT CARE PER NURSING PROTOCOL Performed By: #### L501.080 #### [facility] Point of Care [address] [place] [address] BEDSIDE GLUCOSE Collected: 07/20/2018 Status: F Source: MEMO 11:40 AM [facility] REPOSITORY TYPE CODE TESTS RESULT OUT OF REFERENCE UNITS RANGE LAB L501.080 70-110 mg/dL High BEDSIDE GLU 197 Result Comment: MANAGEMENT OF PATIENT CARE PER NURSING PROTOCOL Performed By: #### L501.080 #### [facility] Point of Care [address] [place] [address] THORACENTESIS W US Observed: 07/20/2018 Status: F Source: MEMO 8:17 AM [facility] REPOSITORY [facility] Imaging Services [address] [place] [address] Thoracentesis W US MR#: [id number] Acct: [id number] Name: JENNIFER CANTRELL Rep #: [id number] : 1945 F 72 From: David Santamaria MD PCP: Ajith Sainz DO Status: ADM IN Study: Thoracentesis W US Date of Exam: 07/23/18 Exam# [id number] Ordering Dr: Santana Fuller MD PROCEDURE: ULTRASOUND GUIDED THORACENTESIS. DATE: 2018. INDICATION: Female, 72 years old. Right pleural effusion. PHYSICIAN: David Santamaria M.D. PROCEDURE: The risks, benefits, and alternatives to the procedure were explained to the patient. The specific risks of bleeding, infection, and pneumothorax requiring chest tube insertion were discussed and accepted. Written informed consent was obtained. Ultrasonographic evaluation of the right lower pleural space was carried out. An adequate pocket was identified. The patient was placed in the sitting, upright position. The overlying skin was prepped and draped in sterile fashion. 1% lidocaine was administered subcutaneously for local anesthesia. Under ultrasound guidance, a 5 [place] thoracentesis needle/catheter system was advanced into the right posterior lower pleural fluid collection. Approximately 1120 mL of paula-colored fluid was drained. The catheter was removed, and a sterile dressing was applied. A specimen was collected and sent to the laboratory for analysis, as requested by the referring clinician. The patient tolerated the procedure well. A chest x-ray was ordered. US/Thoracentesis W US IMPRESSION: Ultrasound-guided right thoracentesis. Electronically Signed: David Santamaria MD at 14:18 EST Tel [phone], Service support , CC: Santana Fuller; Ajith Sainz DO Mushroom Grower: Signed BEDSIDE GLUCOSE Collected: 07/20/2018 Status: F Source: MEMO 6:55 AM [facility] REPOSITORY TYPE CODE TESTS RESULT OUT OF REFERENCE UNITS RANGE LAB L501.080 70-110 mg/dL High BEDSIDE GLU 151 Result Comment: MANAGEMENT OF PATIENT CARE PER NURSING PROTOCOL Performed By: #### L501.080 #### [facility] Point of Care [address] [place] [address] CBC W/DIFF, AUTOMATED Collected: 07/20/2018 Status: F Source: MEMO 5:35 AM [facility] REPOSITORY TYPE CODE TESTS RESULT OUT OF RANGE REFERENCE UNITS LAB L100.1000 4.4-11.0 K/mm3 Normal WBC 6.6 LAB L100.1200 4.2-5.4 M/mm3 Low RBC 3.48 LAB L100.1300 12.0-15.0 g/dl Low HGB 10.4 LAB L100.1400 37-47 % Low HCT 33.7 LAB L100.1500 81-99 fL Normal MCV 96.8 LAB L100.1600 27.0-32.0 pg Normal MCH 29.9 LAB L100.1700 32-36 g/gl Low MCHC 30.9 LAB L100.1810 11.6-14.6 % High RDW CV 17.4 LAB L100.1820 35.1-43.9 fl High RDW SD 62.1 LAB L100.1900 150-450 K/mm3 Normal PLT 154 LAB L100.2000 6.2-12.0 fl Normal MPV 10.3 LAB L100.2100 47-70 % High NEUT% 80.9 LAB L100.2200 19-41 % Low LY% 9.2 LAB L100.2300 0-10 % Normal MONO% 6.8 LAB L100.2400 0-5 % Normal EO% 1.8 LAB L100.2500 0-1 % Normal BASO% 0.8 LAB L100.2550 0.0-0.9 % Normal IM GRAN % 0.500 Result Comment: IG% - Immature Granulocytes (promyelocytes, myelocytes and metamyelocytes) > 1% indicates that a LEFT SHIFT is Present. LAB L100.2620 2.0-7.7 X10 3/uL Normal Absolute Neut 5.4 LAB L100.2720 0.83-4.51 X10 3/ul Low Absolute Lymph 0.61 Performed By: #### L100.0100 #### [facility] [address] [place], [place], [address] BASIC METABOLIC Collected: 07/20/2018 Status: F Source: MEMO PROFILE (BMP) 5:35 AM [facility] REPOSITORY TYPE CODE TESTS RESULT OUT OF RANGE REFERENCE UNITS LAB L501.0100 74-106 mg/dL High GLU 171 Result Comment: Fasting Glucose result greater than or equal to 126 mg/dL suggests DIABETES MELLITUS per A.D.A. criteria. Please note revised GLUCOSE reference range effective 2017. LAB L501.1000 7-18 mg/dL High BUN 28 LAB L501.1100 0.55-1.02 mg/dL High CREAT,SERUM 1.83 Result Comment: The validity of the calculated GFR AND GFRAA in patients over 70 years has not been determined. Clinical correlation is essential. LAB L501.1110 >60 mL/min Low EST GFR 29 Result Comment: Non- GFR Calc LAB L501.1115 >60 mL/min Low EST GFR - AA 35 Result Comment: GFR Calc LAB L501.1255 ml/min Normal Estimated CRCL 19.37 LAB L501.1300 10-20 RATIO Normal BUN/CRE 15.3 LAB L501.2200 8.5-10 mg/dL Low .1 CA 8.2 LAB L501.5300 136-14 mmol/L Normal 5 NA 141 LAB L501.5600 3.5-5. mmol/L Normal 1 K 3.6 LAB L501.5900 98-107 mmol/L Normal CL 104 LAB L501.6100 21.0-3 mmol/L Normal 2.0 CO2 28.0 LAB L501.6200 5-15 Normal GAP 9 Performed By: #### L500.2500 #### [facility] [address], [address] TRANSFERRIN Collected: 07/20/2018 Status: F Source: MEMO 5:35 AM [facility] REPOSITORY TYPE CODE TESTS RESULT OUT OF REFERENCE UNITS RANGE LAB L3400.3800 200-370 mg/dL Low TRANSFERRN 4484 158 Result Comment: Performed at: [facility] [address] [id number] [employer] Cook: Junior Moss PhD, Phone: [phone] Performed By: #### L3400.3800 #### [facility] (refer to report for specific site) refer to report for address and phone number BEDSIDE GLUCOSE Collected: 07/19/2018 Status: F Source: MEMO 9:30 PM [facility] REPOSITORY TYPE CODE TESTS RESULT OUT OF REFERENCE UNITS RANGE LAB L501.080 70-110 mg/dL High BEDSIDE GLU 135 Result Comment: MANAGEMENT OF PATIENT CARE PER NURSING PROTOCOL Performed By: #### L501.080 #### [facility] Point of Care [address] [place] [address] BEDSIDE GLUCOSE Collected: 07/19/2018 Status: F Source: MEMO 4:27 PM [facility] REPOSITORY TYPE CODE TESTS RESULT OUT OF REFERENCE UNITS RANGE LAB L501.080 70-110 mg/dL High BEDSIDE GLU 209 Result Comment: MANAGEMENT OF PATIENT CARE PER NURSING PROTOCOL Performed By: #### L501.080 #### [facility] Point of Care [address] [place] [address] BEDSIDE GLUCOSE Collected: 07/19/2018 Status: F Source: MEMO 11:50 AM [facility] REPOSITORY TYPE CODE TESTS RESULT OUT OF REFERENCE UNITS RANGE LAB L501.080 70-110 mg/dL High BEDSIDE GLU 162 Result Comment: MANAGEMENT OF PATIENT CARE PER NURSING PROTOCOL Performed By: #### L501.080 #### [facility] Point of Care [address] [place] [address] PROTHROMBIN TIME W/INR Collected: 07/19/2018 Status: F Source: MEMO 10:45 AM [facility] REPOSITORY TYPE CODE TESTS RESULT OUT OF RANGE REFERENCE UNITS LAB L300.4150 11.7-14.9 SECONDS High PROTIME 17.1 LAB L300.4200 Normal INR 1.4 Performed By: #### L300.3900, L300.4310 #### [facility] [address] [place], [address] PARTIAL THROMBOPLAST Collected: 07/19/2018 Status: F Source: MEMO TIME 10:45 AM [facility] REPOSITORY TYPE CODE TESTS RESULT OUT OF RANGE REFERENCE UNITS LAB L300.4310 24.1-36.2 Seconds Normal PTT 34.0 Performed By: #### L300.3900, L300.4310 #### [facility] [address] [place], [address] BLOOD GASES BY CPS Collected: 07/19/2018 Status: F Source: MEMO 9:42 AM [facility] REPOSITORY TYPE CODE TESTS RESULT OUT OF RANGE REFERENCE UNITS LAB L9000.9990 Normal BLD GAS TYPE ART LAB L9001.1000 Normal SITE R Radial LAB L9001.1010 Normal CONSUELO TEST POS LAB L9001.1050 O2 Normal Delivery Dev Bi / C PAP LAB L9001.1070 RR Normal 12 LAB L9001.1074 Normal FI02 50 LAB L9001.1088 Normal IPAP 10 LAB L9001.1090 Normal EPAP 6 LAB L9001.1104 Normal Results To HOSP MD LAB L9001.1105 Normal Time Given 935 LAB L9001.1110 7.35-7.45 pH Normal - I-STAT 7.41 LAB L9001.1210 35-45 mmHg Normal pCO2 - ISTAT 40.9 LAB L9001.1310 75-100 mmHG Low PO2 I-STAT 74 LAB L9001.2300 22-26 mmol/L High HCO3 ISTAT 26.2 LAB L9001.2400 -2 to +2 mmol/L BE Normal ISTAT 2 LAB L9001.2415 mmol/L Normal TOTAL CO2 27 ISTAT LAB L9001.2425 95-99 % Normal SO2 ISTAT 95 Performed By: #### L9000.0800 #### [facility] Point of Care [address] [place] [address] BEDSIDE GLUCOSE Collected: 07/19/2018 Status: F Source: 7:01 AM [facility] REPOSITORY TYPE CODE TESTS RESULT OUT OF REFERENCE UNITS RANGE LAB L501.080 70-110 mg/dL High BEDSIDE GLU 221 Result Comment: MANAGEMENT OF PATIENT CARE PER NURSING PROTOCOL Performed By: #### L501.080 #### [facility] Point of Care [address] [place] [address] BASIC METABOLIC Collected: 07/19/2018 Status: F Source: MEMO PROFILE (BMP) 6:15 AM [facility] REPOSITORY TYPE CODE TESTS RESULT OUT OF RANGE REFERENCE UNITS LAB L501.0100 74-106 mg/dL High GLU 235 Result Comment: Glucose result greater than or equal to 200 mg/dL suggests DIABETES MELLITUS per A.D.A. criteria. Please note revised GLUCOSE reference range effective 2017. LAB L501.1000 7-18 mg/dL High BUN 26 LAB L501.1100 0.55-1.02 mg/dL High CREAT,SERUM 1.89 Result Comment: The validity of the calculated GFR AND GFRAA in patients over 70 years has not been determined. Clinical correlation is essential. LAB L501.1110 >60 mL/min Low EST GFR 28 Result Comment: Non- GFR Calc LAB L501.1115 >60 mL/min Low EST GFR - AA 33 Result Comment: GFR Calc LAB L501.1255 ml/min Normal Estimated CRCL 18.76 LAB L501.1300 10-20 RATIO Normal BUN/CRE 13.8 LAB L501.2200 8.5-10 mg/dL Low .1 CA 7.7 LAB L501.5300 136-14 mmol/L Normal 5 NA 142 LAB L501.5600 3.5-5. mmol/L Low 1 K 3.3 LAB L501.5900 98-107 mmol/L Normal CL 104 LAB L501.6100 21.0-3 mmol/L Normal 2.0 CO2 27.0 LAB L501.6200 5-15 Normal GAP 11 Performed By: #### L500.2500, L501.5200 #### [facility] [address] [place], [place], [address] MAGNESIUM Collected: 07/19/2018 Status: F Source: MEMO 6:15 AM [facility] REPOSITORY TYPE CODE TESTS RESULT OUT OF RANGE REFERENCE UNITS LAB L501.5200 1.6-2.6 mg/dL Normal MG 2.4 Performed By: #### L500.2500, L501.5200 #### [facility] [address] [place], [place], [id number] IRON+IRON BINDING Collected: 07/19/2018 Status: F Source: MEMO CAPACITY 6:15 AM [facility] REPOSITORY TYPE CODE TESTS RESULT OUT OF RANGE REFERENCE UNITS LAB L503.6075 250-450 ug/dL Normal TIBC 316 LAB L503.6150 50-170 ug/dL Low IRON 39 Result Comment: Slight Hemolysis, Result may be falsely increased. LAB L503.6250 15.0-55.0 % IRON Low SATURATION 12.3 Performed By: #### L503.6030, L503.6550 #### [facility] [address] [place], [address] FERRITIN Collected: 07/19/2018 Status: F Source: MEMO 6:15 AM [facility] REPOSITORY TYPE CODE TESTS RESULT OUT OF RANGE REFERENCE UNITS LAB L503.6550 8-252 ng/mL Normal FERRITIN 133 Performed By: #### L503.6030, L503.6550 #### [facility] [address] [place], [address] BEDSIDE GLUCOSE Collected: 07/19/2018 Status: F Source: MEMO 1:57 AM [facility] REPOSITORY TYPE CODE TESTS RESULT OUT OF REFERENCE UNITS RANGE LAB L501.080 70-110 mg/dL High BEDSIDE GLU 259 Result Comment: MANAGEMENT OF PATIENT CARE PER NURSING PROTOCOL Performed By: #### L501.080 #### [facility] Point of Care [address] [place] [address] TROPONIN-I Collected: 07/18/2018 Status: F Source: MEMO 9:20 PM [facility] REPOSITORY Order Comment: 'TROP' Serial specimen #1, #2 or #3: 3 TYPE CODE TESTS RESULT OUT OF RANGE REFERENCE UNITS LAB L501.4010 <0.045 ng/mL Normal 0.041 TROPONIN-I Result Comment: TROPONIN-I EXPECTED VALUES <0.045 Negative 0.045 - 0.590 Consistent with Cardiac Damage > OR = 0.600 Critical Value Not every elevated troponin is indicative of LA. These values should be used with clinical judgement in examining the patient's clinical picture for diagnosis. To establish a diagnosis of LA versus myocardial injury, there must be a demonstrated rise and/or fall in the troponin values, in addition to ischemic symptoms, EKG changes, new regional wall motion abnormality, and/or angiographical evidence. PLEASE NOTE: REFERENCE RANGES EDITED 17 Performed By: #### L501.4010 #### [facility] [address] [place], [address] LACTIC ACID Collected: 07/18/2018 Status: F Source: [place] 8:05 PM [facility] REPOSITORY TYPE CODE TESTS RESULT OUT OF RANGE REFERENCE UNITS LAB L503.6005 0.4-2.0 mmol/L Normal LACTIC ACID 1.9 Performed By: #### L503.6005 #### [facility] [address] [place], [address] HISTORY AND PHYSICAL Observed: 07/18/2018 Status: F Source: [place] EXAM 5:01 PM [facility] REPOSITORY [facility] Medical Records Department [address] [place] [address] History and Physical 07/18/18 1647 MR#: [id number] Acct: [id number] Name: JENNIFER CANTRELL Rep #: [id number] : 1945 72 From: Neil Villagran DO PCP: Ajith Sainz DO Status: ADM IN Location: [place] [id number] Problem List (1) (HFpEF) heart failure with preserved ejection fraction Status: Acute History of Present Illness Date of Admission: 07/18/18 Chief Complaint: shortness of breath. The patient is a 72 year old F who was just discharged on the with CHF and a UTI, presents with increasing shortness of breath--similar to her last admission. Was seen in ED on for hypotension and sent home. Shortness of breath has gotten worse since her discharge. Increased lower extremity edema. CXR showed worsening CHF and pleural effusion. Did have a thoracentesis performed on the right on 07/11, which removed 1420cc, and on the left on 07/12, which removed 750cc. Fluid was transudative in appearance. Was discharged on lasix 20mg/d. Patient is a poor historian due to being listless. So, much of the history is obtained through the ER physician and a chart review.] Past Medical History Past Medical History (Chronic Problems): Chronic Problems CAD (coronary artery disease) (Chronic) Medical History: Medical History (Last Updated 07/18/18 @ 16:53 by Neil Villagran DO) (HFpEF) heart failure with preserved ejection fraction I50.30 CAD (coronary artery disease) I25.10 Allergies simvastatin [From Zocor] Allergy (Verified 07/18/18 14:07) Unknown Home Medications: Ambulatory Orders Medication Instructions Recorded Acetaminophen 650 mg PO Q4H PRN PRN 07/04/18 Apixaban [Eliquis] 2.5 mg PO BID 07/04/18 Bisacodyl 10 mg RC DAILY PRN PRN 07/04/18 Surgical History: cholecystectomy, coronary bypass surgery, - - Mitral valve replacement, and permanent pacemaker. Smoking Status: Former smoker Tobacco Use: Non-smoker Alcohol: None Drugs: None - *Family History Maternal History Items: Diabetes, Heart Disease, Hypertension Paternal History Items: Cancer, Diabetes, Heart Disease, Hypertension, Stroke Review of Systems Constitutional: Denies: Anorexia, Chills, Fever Eyes: Denies: Blurred vision, Double vision HEENT: Denies: Head Aches, Sinus Congestion, Sinus Drainage Cardiovascular: Reports: Edema. Denies: Chest Pain Respiratory: Reports: Cough - non-productive., Shortness of Breath Gastrointestinal: Denies: Abdominal Pain, Nausea, Vomiting Genitourinary: Denies: Dysuria, Frequency Musculoskeletal: Denies: Joint Pain, Joint Tenderness Skin: Denies: Rash, Wounds Neurological: Denies: Numbness, Tingling, Focal weakness Psychiatric: Denies: Anxiety, Depression Hematologic/ Lymphatic: Denies: Easy Bruising, Easy Bleeding, Hx of blood clot Comment: A 10 point review of systems were negative except as mentioned in the history of present illness and the other review of systems. VTE Information - Inpt Only VTE Present on Admission: No VTE Mechan Device Prophylaxis: None VTE Pharm Prophylaxis ordered?: Yes Patient Problems: Active and Suspected Problems (HFpEF) heart failure with preserved ejection fraction (Acute) - Physical Exam General: Alert, No apparent distress, - - Appears much older than stated age. Afebrile. No respiratory distress. No conversational dyspnea. HEENT: Atraumatic, Normocephalic Oral: Moist Mucosa, No Gingival or Mucosal Lesions/ Ulcerations Neck: No JVD, No Nodes Lungs: Diminished, - - Coarse breath sounds bilaterally Cardiovascular: Regular rate, Regular Rhythm, Normal S1, Normal S2, No murmurs Abdomen: Bowel Sounds Present, Soft, Non Tender, Non-Distended, No Hepato-splenomegaly Extremities: No Calf Tenderness, Edema Skin: No rashes, No breakdown, - - Some mottling on her knees. Abrasion on the left upper extremity Musculoskeletal: Cachexia, Muscle Wasting Neurological: Sensory exam intact to light touch and pain, - - No clonus Psych/Mental Status: Appropriate, Flat Affect Vital Signs Temp Pulse Resp BP Pulse Ox 36.1 C L 113 H 19 H 114/70 99 07/18/18 16:25 07/18/18 16:25 07/18/18 16:25 07/18/18 16:25 07/18/18 16:25 Oxygen Flow Rate (L/min) 2.5 Oxygen Delivery Method Nasal Cannula Weight: 55.8 kg Body Mass Index (BMI) 24.0 Microbiology Past 72 Hours 07/18/18 14:40 Influenza Types A,B Direct FA ([facility]) - Final Mucosa - Nose Laboratory Tests Past 24 Hrs WBC RBC Hgb Hct MCV MCH MCHC RDW Clinical Impression(s) from Imaging Studies Chest X-Ray 07/18/18 14:30 IMPRESSION: Bilateral pleural effusions with bibasilar atelectasis and/or infiltrate superimposed on CHF. Electronically Signed: David Santamaria MD at 14:54 EST Tel [phone], Service support , Assessment/Plan All Active Problems UTI (urinary tract infection) (Acute) CHF (congestive heart failure) (Acute) (HFpEF) heart failure with preserved ejection fraction (Acute) 1. Acute heart failure with preserved ejection fraction EF 65% We will place the patient on IV Lasix at 40 mg twice daily Will need to monitor the patient's creatinine closely Would hold off on BAILEE inhibitors and angiotensin receptor blockers given the patient's overall worsened kidney function, though stable from last admission. 2. Acute kidney injury Was not present when patient was admitted last admission but has steadily worsened but has remained stable since the third Cautious diuresis monitor labs closely 3. Moderate protein malnutrition Complicates care Supplements Consult nutrition 4. DVT prophylaxis with subcu heparin 5. Pleural effusions Have reaccumulated Transudate of based on thoracentesis from last admission We will can continue with medical management at this time, however it seems to be increasing despite diuresis then would recommend doing another thoracentesis. Would need to hold the patient's apixaban before undergoing the procedure. 6. Advanced care planning: Discussed with patient. Patient wishes to have CPR and intubation but would declined a PEG tube in the event of dysphagia. I did state to seen who I believe is her son that is very concerned the patient is back in the hospital with a worsened clinical picture with an approximately 5 days. Code Visit Inpatient E AND M: [id number] Init Hosp L3 07/18/18 1701 <Electronically signed by Neil Villagran DO> Date Neil Villagran DO Cosigner Signature: Date (if applicable) CC: Neil Villagran DO; Ajith Sainz DO Signed EMERGENCY DEPARTMENT Observed: 07/18/2018 Status: F Source: [place] SUMMARY 4:22 PM [facility] REPOSITORY [facility] Medical Records Department [address] [place] [address] Emergency Department Summary 07/18/18 1541 MR#: [id number] Acct: [id number] Name: FARZANA CANTRELLANNIE Quinones Rep #: [id number] : 1945 72 From: Quintin Poole MD PCP: Ajith Sainz DO Status: REG ER - ER Visit Summary Date of Service: 07/18/18 Chief Complaint: Shortness of breath History of Present Illness: The patient is a 72 F presenting for evaluation secondary to shortness of breath. Patient has a underlying history of congestive heart failure with recent admission to the hospital for CHF, urinary tract infection, and sepsis. She was recently discharged to the halfway at the beginning of the year. Patient was in the emergency department 3 days ago for a borderline blood pressure and was discharged. Today apparently the patient was having some increased shortness of breath on her baseline oxygen. She typically is on which she says is 4 L at baseline, and was told by the halfway of any 8% on room air. Patient endorses that she has been having some dyspnea and cough. She also endorses that she has been having some lower extremity edema. She denies any presence of fevers or chest pain. She denies any abdominal pain nausea vomiting or any other infectious signs or symptoms. Physical Examination: Vital signs notable for heart rate of 111, room air pulse ox is 81%, but comes up appropriately on 2 L to 100%. Patient is well-developed and appears older than stated age. No conjunctival pallor. Dry mucous membranes are noted. Neck was supple no JVD was noted. Heart was tachycardic and regular no murmurs. Respirations were tachypneic, with decreased sounds in the lung bases bilaterally. Abdomen soft and nontender. 1+ bilaterally symmetric pitting edema. Patient was somewhat pale. She was alert and oriented without lateralizing neurological deficits. Test Results: EKG demonstrates right bundle branch block with sinus tachycardia rate of 113 no evidence of acute changes from prior EKG and no acute ischemia. Chest x-ray shows bilateral pleural effusions somewhat worse than prior chest x-ray with evidence of superimposed CHF and infiltrate. Chemistry demonstrates chronic kidney disease. Creatinine elevated at 1.7 and troponin also elevated to an indeterminate level at 0.05 which seems consistent with the patient's prior history. BNP elevated in the 500 range. Lactic acid found to be elevated at 2.1 Emergency Department Course and Treatment: Patient presented secondary to shortness of breath. Patient was evaluated for the possibility of sepsis since she does have tachycardia. Chest x-ray demonstrated the patient to have some worsening infiltrates and bilateral pleural effusions. Troponin elevated to an indeterminate level at 0.05, BNP slightly elevated at 500, creatinine chronically elevated 1.7, lactic acid mildly elevated at 2.1. Patient's overall clinical picture is not precisely clear whether this is complete CHF versus pneumonia versus a combination of 2, but I do believe that she requires antibiotics and admission. Patient was given gentle fluid hydration, and will be started on Levaquin. She will be admitted under the hospitalist. Disposition: Admission Impression: 1. Pneumonia 2. Congestive heart failure This note was generated with SceneChatation software. It may contain incorrect words, spelling, and punctuation that were not noted in review of the chart prior to signing ED Disposition - Plan for ED Patient: Chief Complaint: Shortness of Breath Referrals: Ajith Sainz, DO [Primary Care Provider] - What to do if you have Problems For any increased pain, shortness of breath, bleeding, nausea or vomiting, chest pain, or any unexpected problems, contact your Primary Care Provider. Call [facility] ([phone]) or report to the closest Emergency Room. Call 911 if necessary. 07/18/18 1622 <Electronically signed by Quintin Poole MD> Date Quintin Poole MD Cosigner Signature (If Indicated): Date CC: Ajith Sainz DO URINALYSIS, COMPLETE Collected: 07/18/2018 Status: F Source: MEMO 4:20 PM [facility] REPOSITORY Order Comment: Order Date: 07/18/18 How was Urine Obtained? CATHETER SPECIMEN TYPE CODE TESTS RESULT OUT OF RANGE REFERENCE UNITS LAB L400.3000 Yellow COLOR Normal Yellow LAB L400.3050 Clear Normal CLARITY Clear LAB L400.3200 Normal mg/dl Normal GLUCOSE, UR Normal LAB L400.3300 Negative mg/dL Normal BILIRUBIN URINE Negative LAB L400.3400 Negative mg/dl Normal KETONE UR Negative LAB L400.3465 1.002-1.030 Normal SP.GR. DIPSTX 1.015 LAB L400.3550 5.0 - 8.0 pH UR Normal 5.0 LAB L400.3600 Negative mg/dl PROT Normal DIPSTX Negative LAB L400.3700 Normal mg/dl Normal UROBILI Normal LAB L400.3750 Negative Normal NITRITE UR Negative LAB L400.3780 Negative /ul Normal OCCULT BLOOD-UR Negative LAB L400.3800 Negative /ul LEUK Normal ESTERASE Negative LAB L400.4050 0-5 /hpf WBC 0 Normal SEEN LAB L400.4100 0-5 /hpf 0 Normal RBC-UA SEEN LAB L400.4150 5-10 /hpf SQUAM 0 Normal EPI SEEN LAB L400.4300 None Seen /hpf 0 Normal BACTERIA SEEN LAB L400.4350 <or=2+ /hpf 0 Normal MUCUS, URINE SEEN Performed By: #### L400.0001 #### [facility] [address] [place], [address] Observed: 07/18/2018 Status: F Source: MEMO CULTURE, URINE 4:20 PM [facility] REPOSITORY Order Date: 07/18/18 Urine Culture Culture exhibits no growth. Performed By: #### M100.0650 #### [facility] [address] [place], [address] COMPREHENSIVE METABOLIC Collected: 07/18/2018 Status: F Source: MEMO PROFIL 3:20 PM [facility] REPOSITORY TYPE CODE TESTS RESULT OUT OF RANGE REFERENCE UNITS LAB L501.0100 74-106 mg/dL High GLU 143 Result Comment: Fasting Glucose result greater than or equal to 126 mg/dL suggests DIABETES MELLITUS per A.D.A. criteria. Please note revised GLUCOSE reference range effective 2017. LAB L501.1000 7-18 mg/dL High BUN 24 LAB L501.1100 0.55-1.02 mg/dL High CREAT,SERUM 1.73 Result Comment: The validity of the calculated GFR AND GFRAA in patients over 70 years has not been determined. Clinical correlation is essential. LAB L501.1110 >60 mL/min Low EST GFR 31 Result Comment: Non- GFR Calc LAB L501.1115 >60 mL/min Low EST GFR - AA 37 Result Comment: GFR Calc LAB L501.1255 ml/min Normal Estimated CRCL 20.49 LAB L501.1300 10-20 RATIO Normal BUN/CRE 13.9 LAB L501.1500 6.4-8. g/dL Low 2 T PROT 6.2 LAB L501.1800 3.2-5. g/dL Low 0 ALB 2.2 LAB L501.1950 2.2-4. g/dL Normal 2 GLOB 4.0 LAB L501.2000 0.9-2. RATIO Low 4 A/G 0.6 LAB L501.2200 8.5-10 mg/dL Low .1 CA 7.9 LAB L501.4100 15-37 U/L Normal AST 21 LAB L501.4305 45-117 U/L High ALK P 127 LAB L501.4405 13-56 U/L Normal ALT 13 LAB L501.4600 0.20-1 mg/dL Normal .00 T BILI 0.40 LAB L501.5300 136-14 mmol/L Normal 5 NA 139 LAB L501.5600 3.5-5. mmol/L Low 1 K 3.4 LAB L501.5900 98-107 mmol/L Normal CL 102 LAB L501.6100 21.0-3 mmol/L Normal 2.0 CO2 29.0 LAB L501.6200 5-15 Normal GAP 8 Performed By: #### L500.4050, L501.4010 #### [facility] [address] [facility] [place], [place], [id number] TROPONIN-I Collected: 07/18/2018 Status: F Source: MEMO 3:20 PM [facility] REPOSITORY TYPE CODE TESTS RESULT OUT OF RANGE REFERENCE UNITS LAB L501.4010 <0.045 ng/mL High 0.050 TROPONIN-I Result Comment: TROPONIN-I EXPECTED VALUES <0.045 Negative 0.045 - 0.590 Consistent with Cardiac Damage > OR = 0.600 Critical Value Not every elevated troponin is indicative of LA. These values should be used with clinical judgement in examining the patient's clinical picture for diagnosis. To establish a diagnosis of LA versus myocardial injury, there must be a demonstrated rise and/or fall in the troponin values, in addition to ischemic symptoms, EKG changes, new regional wall motion abnormality, and/or angiographical evidence. PLEASE NOTE: REFERENCE RANGES EDITED 17 Performed By: #### L500.4050, L501.4010 #### [facility] [address] [facility] [place], [place], [id number] BNP,B-TYPE NATRIURETIC Collected: 07/18/2018 Status: F Source: [place]O PEPTIDE 3:20 PM [facility] REPOSITORY TYPE CODE TESTS RESULT OUT OF RANGE REFERENCE UNITS LAB L503.6620 0-100 pg/mL High B-TYPE 565.7 FAUSTINA PEP Performed By: #### L503.6620 #### [facility] [address] [place], [address] LACTIC ACID Collected: 07/18/2018 Status: F Source: [place] 3:20 PM [facility] REPOSITORY Order Comment: Yes/No query for Sepsis Lactate Rule Y TYPE CODE TESTS RESULT OUT OF REFERENCE UNITS RANGE LAB L503.6005 0.4-2.0 mmol/L High LACTIC ACID 2.1 Result Comment: Critical Result(s) Called at: 16:14:05 07/18/2018 by: Katrina Jensen to RSiburt Performed By: #### L503.6005 #### [facility] [address] [place], [address] CBC W/DIFF, AUTOMATED Collected: 07/18/2018 Status: F Source: [place] 3:20 PM [facility] REPOSITORY TYPE CODE TESTS RESULT OUT OF RANGE REFERENCE UNITS LAB L100.1000 4.4-11.0 K/mm3 Normal WBC 7.7 LAB L100.1200 4.2-5.4 M/mm3 Low RBC 3.50 LAB L100.1300 12.0-15.0 g/dl Low HGB 10.3 LAB L100.1400 37-47 % Low HCT 33.2 LAB L100.1500 81-99 fL Normal MCV 94.9 LAB L100.1600 27.0-32.0 pg Normal MCH 29.4 LAB L100.1700 32-36 g/gl Low MCHC 31.0 LAB L100.1810 11.6-14.6 % High RDW CV 17.3 LAB L100.1820 35.1-43.9 fl High RDW SD 60.5 LAB L100.1900 150-450 K/mm3 Low PLT 112 LAB L100.2000 6.2-12.0 fl Normal MPV 11.6 LAB L100.2100 47-70 % High NEUT% 85.9 LAB L100.2200 19-41 % Low LY% 6.1 LAB L100.2300 0-10 % Normal MONO% 4.9 LAB L100.2400 0-5 % Normal EO% 1.6 LAB L100.2500 0-1 % Normal BASO% 0.5 LAB L100.2550 0.0-0.9 % High IM GRAN % 1.000 Result Comment: IG% - Immature Granulocytes (promyelocytes, myelocytes and metamyelocytes) > 1% indicates that a LEFT SHIFT is Present. LAB L100.2620 2.0-7.7 X10 3/uL Normal Absolute Neut 6.6 LAB L100.2720 0.83-4.51 X10 3/ul Low Absolute Lymph 0.47 LAB L100.4500 SMEAR Normal COMMENT Result Comment: LYMPHOPENIA NOTED LAB L100.5500 ADEQ Normal PLT EST SLT DEC LAB L100.7000 NORM C AND NORMAL Normal C RED CELL N CHROM MORPH LAB L100.7300 Normal ANISO 1+ Performed By: #### L100.0100 #### [facility] [address] [facility] [place], [address] PROTHROMBIN TIME W/INR Collected: 07/18/2018 Status: F Source: [place] 3:20 PM [facility] REPOSITORY TYPE CODE TESTS RESULT OUT OF RANGE REFERENCE UNITS LAB L300.4150 11.7-14.9 SECONDS High PROTIME 15.0 LAB L300.4200 Normal INR 1.2 Performed By: #### L300.3900, L300.4310 #### [facility] [address] [place], [address] PARTIAL THROMBOPLAST Collected: 07/18/2018 Status: F Source: [place] TIME 3:20 PM [facility] REPOSITORY TYPE CODE TESTS RESULT OUT OF RANGE REFERENCE UNITS LAB L300.4310 24.1-36.2 Seconds Normal PTT 27.3 Performed By: #### L300.3900, L300.4310 #### [facility] [address] [place], [address] THYROID STIM HORMONE Collected: 07/18/2018 Status: F Source: [place] (TSH) 3:20 PM [facility] REPOSITORY TYPE CODE TESTS RESULT OUT OF RANGE REFERENCE UNITS LAB L501.9520 0.358-3.74 uIU/mL High TSH 8.05 Performed By: #### L501.9520 #### [facility] [address] [place], [address] Observed: 07/18/2018 Status: F Source: [place] CULTURE, BLOOD (WB) 3:20 PM [facility] REPOSITORY BC No growth in 5 days. Performed By: #### M200.1000 #### [facility] [address] [place], [address] Observed: 07/18/2018 Status: F Source: [place] CULTURE, BLOOD (WB) 2:55 PM [facility] REPOSITORY BC No growth in 5 days. Performed By: #### M200.1000 #### [facility] [address] [place], [place], [address] Observed: 07/18/2018 Status: F Source: [place] INFLUENZA A+B (RAPID 2:40 PM [facility]) REPOSITORY FLU A/B Rapid Negative test results should be confirmed with FLU PANEL MOLECULAR if indicated. Influenza Ag, Direct Presumptive NEGATIVE for Influenza A/B Antigen (See Note) Performed By: #### M101.0101 #### [facility] [address] [place], [place], [id number] CHEST 1 VIEW Observed: 07/18/2018 Status: F Source: [place] (PORTABLE) 2:28 PM [facility] REPOSITORY [facility] Imaging Services [address] [place] [address] Chest 1 View (Portable) MR#: [id number] Acct: [id number] Name: JENNIFER CANTRELL Joni Rep #: [id number] : 1945 F 72 From: David Santamaria MD PCP: Ajith Sainz DO Status: REG ER Study: Chest 1 View (Portable) Date of Exam: 07/18/18 Exam# [id number] Ordering Dr: Quintin Poole MD STUDY: X-RAY CHEST REASON FOR EXAM: Female, 72 years old. Weakness and shortness of breath. TECHNIQUE: Single AP portable view of the chest. COMPARISON: Comparison is made with prior study dated July 15, 2018. FINDINGS: EKG electrodes are seen. Moderate bilateral pleural effusions worse on the right side with underlying infiltration and/or atelectasis. Gastric congestion and CHF. Sternal cerclage wires are present from a prior sternotomy. The patient is status post mitral valve replacement as well as clipping of the left atrial appendage. A dual-chamber pacemaker is seen. Normal mediastinum and billy. Normal visualized pulmonary arteries. There is atherosclerotic calcification of the aortic arch with tortuosity. There are diffuse degenerative changes of the visualized thoracic spine. Normal visualized ribs, clavicles, and shoulders. There is no demonstrated abnormality of the visualized soft tissue structures of the upper abdomen. RAD/Chest 1 View (Portable) IMPRESSION: Bilateral pleural effusions with bibasilar atelectasis and/or infiltrate superimposed on CHF. Electronically Signed: David Santamaria MD at 14:54 EST Tel [phone], Service support , CC: Quintin Poole; Ajith Sainz DO Mushroom Grower: Signed 12 LEAD ELECTROCARDIOGRAM Observed: 07/17/2018 Status: F Source: [place] 9:34 AM [facility] REPOSITORY [facility] Cardiovascular Services [address] [place] [address] 12 Lead EKG 07/15/182023 MR#: [id number] Acct: [id number] Name: JENNIFER CANTRELL Joni Rep #: [id number] : 1945 72 From: Srinivas Montgomery MD Attending Dr: Status: DEP ER Ordering Dr: Anselmo Thomas MD Date: 07/15/18 Location: ED Sex: F C Admitted: Test Reason : HYPOTENSION Blood Pressure : / mmHG Vent. Rate : 112 BPM Atrial Rate : 086 BPM P-R Int : 000 ms QRS Dur : 158 ms QT Int : 428 ms P-R-T Axes : 000 -83 160 degrees QTc Int : 584 ms Sinus tachycardia Left axis deviation Right bundle branch block Anteroseptal infarct , age undetermined T wave abnormality, consider lateral ischemia Abnormal ECG Confirmed by SRINIVAS MONTGOMERY MD ([id number]), features editor MUNA BOYKIN ([id number]) on 07/17/2018 9:34:30 AM Referred By: KEM Confirmed By:SRINIVAS MONTGOMERY MD 07/17/18 0934 Date Srinivas Montgomery MD CC: Anselmo Thomas MD; Ajith Sainz DO Signed EMERGENCY DEPARTMENT Observed: 07/15/2018 Status: F Source: [place] SUMMARY 10:40 PM [facility] REPOSITORY [facility] Medical Records Department [address] [place] [address] Emergency Department Summary 07/15/182004 MR#: [id number] Acct: [id number] Name: JENNIFER CANTRELL Rep #: [id number] : 1945 72 From: Anselmo Thomas MD PCP: Ajith Sainz DO Status: REG ER - ER Visit Summary Date of Service: 07/15/18 Chief Complaint: Hypotension per F History of Present Illness: The patient is a 72 F patient. She herself denies any nausea, vomiting or diarrhea. She denies any fever. States she feels fine. Denies any melena. No dysuria. She denies any complaints. Physical Examination: Elderly female no acute distress. Her initial blood pressure was 116/80 however it is currently 98/79. Heart rate of 112. Pulse ox 94% on oxygen. She is afebrile. Clinically she does not look septic or toxic. H EENT exam unremarkable. Moist weeks membranes. Neck nontender. No meningismus. No lymphadenopathy. Lungs clear to auscultation bilaterally. Heart regular rhythm rate about 110 no murmur. Abdomen is soft, nontender, nondistended with normal bowel sounds. No peritoneal signs. No hernias or masses. No pulsatile mass. Patient is moving all 4 extremities. She is neurologically awake and alert. Follows commands. Answers questions. She does have trace edema in both lower extremities. Calves are nontender. Back is nontender. She is kyphotic. Test Results: Chest x-ray bilateral pleural effusions which are chronic. Left-sided pacemaker. No acute process. EKG sinus rhythm rate of 112. Old right bundle branch block. Unchanged from prior EKG from June. CBC shows a white count of 10. Chronic anemia hemoglobin 11 which is her baseline. Chemistries unremarkable gap 11. BUN of 25 creatinine 1.83 she has chronic renal insufficiency that is similar to prior numbers. UA normal. There was a cath specimen. Troponin 0 0.068 but that is actually the lowest troponin she has had in the last several troponins. She has chronically elevated troponins. Lactic acid is 1.1. Emergency Department Course and Treatment: Patient with mild hypotension. Clinically does not appear ill. She will be treated with IV fluids with significant workup looking for possible infectious source. Patient was treated with IV fluids. Currently her blood pressure is 111/75. Again she has no complaints. Her abdomen remains benign and nontender. She and her family her card with her being discharged back to the [facility]. I will have them hold any blood pressure medications if her systolic pressure is at or below 130. Treatment Plan: Follow-up with your doctor. Reevaluation of her medications. Disposition: Discharge Impression: Acute hypotension of uncertain etiology History of insulin-dependent diabetes History of A. fib History of renal insufficiency History of COPD. History of CAD with prior CABG This note was generated with [employer] dictation software. It may contain incorrect words, spelling, and punctuation that were not noted in review of the chart prior to signing ED Disposition - Plan for ED Patient: Chief Complaint: Hypotension Referrals: Ajith Sainz, DO [Primary Care Provider] - What to do if you have Problems For any increased pain, shortness of breath, bleeding, nausea or vomiting, chest pain, or any unexpected problems, contact your Primary Care Provider. Call [facility] ([phone]) or report to the closest Emergency Room. Call 911 if necessary. 07/15/18 3750 <Electronically signed by Anselmo Thomas MD> Date Anselmo Thomas MD Cosigner Signature (If Indicated): Date CC: Ajith Sainz DO URINALYSIS, COMPLETE Collected: 07/15/2018 Status: F Source: [place] 9:19 PM [facility] REPOSITORY Order Comment: Order Date: 07/15/18 Has pt arrived? Y How was Urine Obtained? CLEAN CATCH TYPE CODE TESTS RESULT OUT OF RANGE REFERENCE UNITS LAB L400.3000 Yellow COLOR Normal Yellow LAB L400.3050 Clear Normal CLARITY Cloudy LAB L400.3200 Normal mg/dl Normal GLUCOSE, UR Normal LAB L400.3300 Negative mg/dL High BILIRUBIN URINE 1 Result Comment: COLOR OF URINE MAY AFFECT DIPSTICK RESULTS. LAB L400.3400 Negative mg/dl KETONE UR High 5 LAB L400.3465 1.002-1.030 SP.GR. Normal DIPSTX 1.020 LAB L400.3550 5.0 - 8.0 pH UR Normal 5.0 LAB L400.3600 Negative mg/dl PROT DIPSTX Normal Negative LAB L400.3700 Normal mg/dl UROBILI Normal Normal LAB L400.3750 Negative NITRITE UR Normal Negative LAB L400.3780 Negative /ul OCCULT Normal BLOOD-UR Negative LAB L400.3800 Negative /ul LEUK High ESTERASE 25 LAB L400.4050 0-5 /hpf WBC Normal 0-5 SEEN LAB L400.4100 0-5 /hpf RBC-UA Normal 0 SEEN LAB L400.4150 5-10 /hpf SQUAM EPI Normal 0 SEEN LAB L400.4300 None Seen /hpf BACTERIA Normal 0 SEEN LAB L400.4350 <or=2+ /hpf MUCUS, Normal URINE 0 SEEN LAB L400.4200 0-5 /hpf Normal TRANSITIONAL EP 0-5 SEEN LAB L400.4400 0-5 /lpf HYALINE Normal CAST 10-25 SEEN LAB L400.4700 <or=2+ /hpf CA OX Normal CRYSTAL RARE LAB L400.4900 AMORPHOUS Normal 1+ LAB L400.5200 None Seen /hpf YEAST-URINE Normal 1+ Performed By: #### L400.0001 #### [facility] [address] [place], [address] Observed: 07/15/2018 Status: F Source: [place] CULTURE, BLOOD (WB) 8:45 PM [facility] BC No growth in 5 days. Performed By: #### M200.1000 #### [facility] [address] [place], [address] LACTIC ACID Collected: 07/15/2018 Status: F Source: [place] 8:20 PM [facility] REPOSITORY Order Comment: Yes/No query for Sepsis Lactate Rule Y TYPE CODE TESTS RESULT OUT OF RANGE REFERENCE UNITS LAB L503.6005 0.4-2.0 mmol/L Normal LACTIC ACID 1.1 Performed By: #### L503.6005 #### [facility] [address] [place], [address] Observed: 07/15/2018 Status: F Source: [place] CULTURE, BLOOD (WB) 8:20 PM [facility] REPOSITORY BC No growth in 5 days. Performed By: #### M200.1000 #### [facility] [address] [place], [address] CHEST PA AND LATERAL Observed: 07/15/2018 Status: F Source: [place] 8:05 PM [facility] REPOSITORY [facility] Imaging Services [address] [place] [address] Chest PA and Lateral MR#: [id number] Acct: [id number] Name: JENNIFER CANTRELL Rep #: [id number] : 1945 F 72 From: Willie Van MD PCP: Ajith Sainz DO Status: REG ER Study: Chest PA and Lateral Date of Exam: 07/15/18 Exam# [id number] Ordering Dr: Anselmo Thomas MD STUDY: X-RAY CHEST REASON FOR EXAM: Female, 72 years old. Hypotension TECHNIQUE: PA and lateral views of the chest. COMPARISON: Previous study of 07/12/2018 FINDINGS: A bipolar left-sided pacemaker is present. color television console monitor leads are seen. An atrial appendage clip is noted. There is bilateral perihilar/lower lobe infiltrate and/or atelectasis. There are small bilateral effusions difficult to quantitate on this study. The cardiac silhouette is partially obscured by the bilateral effusions. Status post cardiac valvular replacement changes are noted. Normal mediastinum and billy. Normal visualized pulmonary arteries. There are calcified plaques of the aortic arch. Generalized osteopenia is present. There is an increased thoracic kyphosis. Normal visualized ribs, clavicles, and shoulders. There is no demonstrated abnormality of the visualized soft tissue structures of the upper abdomen. RAD/Chest PA and Lateral IMPRESSION: 1. Bilateral perihilar/lower lobe infiltrates and/or atelectasis. These appear more pronounced than noted on the previous study. 2. Small bilateral effusions difficult to quantitate on this study. 3. The cardiac silhouette is partially obscured by the bilateral effusions. Status post cardiac valvular replacement changes are noted. 4. Calcified plaques of the aortic arch. 5. Bipolar left-sided pacemaker. Electronically Signed: Willie Van MD at 21:33 EST , Service support , CC: Anselmo Thomas MD; Ajith Sainz DO Mushroom Grower: Signed CBC W/DIFF, AUTOMATED Collected: 07/15/2018 Status: F Source: [place] 7:25 PM [facility] REPOSITORY TYPE CODE TESTS RESULT OUT OF RANGE REFERENCE UNITS LAB L100.1000 4.4-11.0 K/mm3 Normal WBC 10.3 LAB L100.1200 4.2-5.4 M/mm3 Low RBC 3.75 LAB L100.1300 12.0-15.0 g/dl Low HGB 11.3 LAB L100.1400 37-47 % Low HCT 36.2 LAB L100.1500 81-99 fL Normal MCV 96.5 LAB L100.1600 27.0-32.0 pg Normal MCH 30.1 LAB L100.1700 32-36 g/gl Low MCHC 31.2 LAB L100.1810 11.6-14.6 % High RDW CV 17.6 LAB L100.1820 35.1-43.9 fl High RDW SD 62.4 LAB L100.1900 150-450 K/mm3 Normal PLT 156 LAB L100.2000 6.2-12.0 fl Normal MPV 10.7 LAB L100.2100 47-70 % High NEUT% 84.1 LAB L100.2200 19-41 % Low LY% 6.9 LAB L100.2300 0-10 % Normal MONO% 6.5 LAB L100.2400 0-5 % Normal EO% 1.7 LAB L100.2500 0-1 % Normal BASO% 0.5 LAB L100.2550 0.0-0.9 % Normal IM GRAN % 0.300 Result Comment: IG% - Immature Granulocytes (promyelocytes, myelocytes and metamyelocytes) > 1% indicates that a LEFT SHIFT is Present. LAB L100.2620 2.0-7.7 X10 3/uL High Absolute Neut 8.7 LAB L100.2720 0.83-4.51 X10 3/ul Low Absolute Lymph 0.71 Performed By: #### L100.0100 #### [facility] [address] [place], [address] BASIC METABOLIC Collected: 07/15/2018 Status: F Source: [place] PROFILE (BMP) 7:25 PM [facility] REPOSITORY TYPE CODE TESTS RESULT OUT OF RANGE REFERENCE UNITS LAB L501.0100 74-106 mg/dL High GLU 116 Result Comment: Fasting Glucose result from 100 to 125 mg/dL suggests IMPAIRED HOMEOSTASIS per A.D.A. criteria. Please note revised GLUCOSE reference range effective 2017. LAB L501.1000 7-18 mg/dL High BUN 25 LAB L501.1100 0.55-1.02 mg/dL High CREAT,SERUM 1.83 Result Comment: The validity of the calculated GFR AND GFRAA in patients over 70 years has not been determined. Clinical correlation is essential. LAB L501.1110 >60 mL/min Low EST GFR 29 Result Comment: Non- GFR Calc LAB L501.1115 >60 mL/min Low EST GFR - AA 35 Result Comment: GFR Calc LAB L501.1255 ml/min Normal Estimated CRCL 19.37 LAB L501.1300 10-20 RATIO Normal BUN/CRE 13.7 LAB L501.2200 8.5-10 mg/dL Low .1 CA 8.2 LAB L501.5300 136-14 mmol/L Normal 5 NA 140 LAB L501.5600 3.5-5. mmol/L Normal 1 K 3.8 Result Comment: Moderate Hemolysis, Result may be falsely increased. LAB L501.5900 98-107 mmol/L Normal CL 103 LAB L501.6100 21.0-32.0 mmol/L Normal CO2 26.0 LAB L501.6200 5-15 Normal GAP 11 Performed By: #### L500.2500, L501.4010 #### [facility] [address] [place] [place], [address] TROPONIN-I Collected: 07/15/2018 Status: F Source: [place] 7:25 PM [facility] REPOSITORY TYPE CODE TESTS RESULT OUT OF RANGE REFERENCE UNITS LAB L501.4010 <0.045 ng/mL High 0.068 TROPONIN-I Result Comment: TROPONIN-I EXPECTED VALUES <0.045 Negative 0.045 - 0.590 Consistent with Cardiac Damage > OR = 0.600 Critical Value Not every elevated troponin is indicative of LA. These values should be used with clinical judgement in examining the patient's clinical picture for diagnosis. To establish a diagnosis of LA versus myocardial injury, there must be a demonstrated rise and/or fall in the troponin values, in addition to ischemic symptoms, EKG changes, new regional wall motion abnormality, and/or angiographical evidence. PLEASE NOTE: REFERENCE RANGES EDITED 17 Performed By: #### L500.2500, L501.4010 #### [facility] [address], [address] DISCHARGE SUMMARY Observed: 07/13/2018 Status: F Source: [place] 2:44 PM [facility] REPOSITORY [facility] Medical Records Department [address] [facility] [place] [address] Discharge Summary 07/13/18 1006 MR#: [id number] Acct: [id number] Name: JENNIFER CANTRELL Joni Rep #: [id number] : 1945 72 From: Keeley Wells MD PCP: Ajith Sainz DO Status: ADM IN Location: [place] [id number] Discharge Date and Diagnosis - Problem List Patient Problems: Active and Suspected Problems UTI (urinary tract infection) (Acute) CHF (congestive heart failure) (Acute) Date of Admission: 07/04/18 Date of Discharge: 07/13/18 - Primary Discharge Diagnosis Active and Suspected Problems UTI (urinary tract infection) (Acute) CHF (congestive heart failure) (Acute) bilateral pleural effusion - Secondary Discharge Diagnosis Chronic Problems CAD (coronary artery disease) (Chronic) Hospital Course and Treatment Imaging Results: Diagnostic Data Thoracentesis Ultrasound 07/12/18 12:41 IMPRESSION: Ultrasound-guided left thoracentesis. Electronically Signed: David Santamaria MD at 13:35 EST Tel [phone], Service support , Chest X-Ray 07/12/18 13:18 IMPRESSION: Status post left thoracentesis. There is no evidence of pneumothorax. Electronically Signed: David Santamaria MD at 8:05 EST Tel [phone], Service support , 2D echocardiogram Interpretation Summary The study was technically difficult. Left ventricular systolic function is normal. The estimated ejection fraction is 65 %. The left atrium is moderately enlarged. Stabel appearing prosthetic mitral valve apparatus. Moderate mitral valve stenosis. Trivial transvalvular insufficiency of the mitral valve. Moderate (2+) tricuspid valve insufficiency. Mild aortic stenosis. Trivial aortic valve insufficiency. Echolucency c/w a pleural effusion. Right ventricular systolic pressure estimated to be 47 mmHg. Unable to assess diastolic dysfunction. Comment: 2D echocardiographic images demonstrate echocardiograhic findings c/w a prosthetic mitral valve apparatus, as well as, findings potentially c/w mitral annular calcification, calcification of the submitral valve apparatus, and thickening / calcification / partial restriction of the mitral valve leaflets. Consultations 07/04/18 17:29 Consult: Onc/Wound/lottery sales clerk Routine Comment: cardiology- Dr Domínguez pulmonology-Dr Berger Operations: None Procedures: 2-D Echocardiogram, Thoracentesis Summary of Care Provided: The patient is a 72 year old F with a PMH of congestive heart failure and CAD status post CABG. She was admitted with a complaint of 1 day history of shortness of breath. She was found to be hypoxic requiring BiPAP and chest x-ray showed bilateral pleural effusions. UA also showed evidence of UTI. She was admitted and managed for acute hypoxic respiratory failure due to CHF exacerbation and UTI. BNP on admission was 643. She was diuresed with IV Lasix and switched to nasal oxygen. She was also treated with antibiotics for UTI. Shortness of breath did not improve and patient required increasing amounts of oxygen peaking at around 13 L of oxygen. Repeat B CRISIS COUNSELOR was around 900 which was higher than when she came in. Chest x-ray still showed bilateral pleural effusions. She therefore had right sided thoracentesis with drainage of about 1.4 L of fluid. Shortness of breath did improve in the next day she had left-sided thoracentesis with drainage of about 750 mils of fluid. Fluid analysis showed a transudate of effusion likely due to CHF exacerbation. Patient had been started on metoprolol during that this admission for her A. fib which was increased. However metoprolol was DC'd on account of her blood pressure running in the 80s and 90s systolic. Heart rate remained fairly well controlled in the low 100s. Patient was restarted on her Eliquis which have been held on account of her needing thoracentesis. She still did require about 2-3 L of oxygen to maintain his saturation. Her kidney function worsened and he developed AK I likely due to IV Lasix. IV Lasix was therefore stopped and she was put on 20 mg of Lasix daily p.o. Completed a 5-day course of p.o. ciprofloxacin. 2D echo done showed EF of 65% with moderately enlarged left atrium and normal left ventricular systolic function. She had a stable appearing prosthetic mitral valve apparatus and also had mild aortic stenosis as well as moderate 2+ tricuspid valve insufficiency. RVSP was 47 mmHg. Patient was [facility] to a detention facility on 07/13/2018 on p.o. Lasix 20 mg daily and her home dose of Eliquis as well as home oxygen. 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 She is to have follow-up serial BMP in the halfway to monitor her kidney function as creatinine was 1.78 on discharge. Patient seen and examined prior to discharge. She had no complaints. She denied any fever, any chills, any cough or chest pain and admitted to mild shortness of breath. She was on 2-3 L of oxygen. 12 point review of systems otherwise negative. Labs and vitals reviewed. Home medications reviewed and reconciled. o/e: Vitals; Vital Signs Height 5 ft Weight: 119 lb 4.321 oz General: Alert, Oriented x3, Cooperative, No apparent distress HEENT: Atraumatic, PERRLA, EOMI, Normocephalic Oral: Moist Mucosa Neck: Supple, No JVD, Negative Carotid Bruits Lungs: - - still has decreased breath sounds bibasally; no wheezing or crackles; on 3L of oxygen Cardiovascular: Regular rate, Regular Rhythm, Normal S1, Normal S2, No murmurs Abdomen: Bowel Sounds Present, Soft, Non Tender, Non-Distended, No Hepato-splenomegaly Extremities: No clubbing, No cyanosis, No edema, Capillary Refill Less than 3 Seconds Skin: No rashes, No breakdown Musculoskeletal: No Tenderness to Palpation of Joints or Extremities Lymphatic: No Cervical, Supraclavicular, or Inguinal Adenopathy Neurological: Cranial nerves II-XII grossly intact Psych/Mental Status: Normal Affect, Appropriate, Alert and oriented to time, place, person, mood and affect Plan as described above. Patient Problems: Active and Suspected Problems UTI (urinary tract infection) (Acute) CHF (congestive heart failure) (Acute) - Physical Exam Vital Signs Temp Pulse Resp BP Pulse Ox 97.3 F L 109 H 16 92/60 96 07/13/18 08:40 07/13/18 08:40 07/13/18 08:40 07/13/18 08:40 07/13/18 08:40 Oxygen Flow Rate (L/min) [3] 5 Oxygen Flow Rate (L/min) [2] 5 Oxygen Flow Rate (L/min) [1 ( 3 Initial Baseline)] Oxygen Flow Rate (L/min) 3 Oxygen Delivery Method [3] Nasal Cannula Oxygen Delivery Method [2] Nasal Cannula Oxygen Delivery Method [1 ( Nasal Cannula Initial Baseline)] Oxygen Delivery Method Nasal Cannula Weight: 119 lb 4.321 oz Body Mass Index (BMI) 24.0 Intake and Output for Last 24 Hours Intake Total 885 / 885 1420 / 1420 310 / 310 Output Total 2445 / 2445 975 / 975 25 / 25 Balance -1560 / -1560 445 / 445 285 / 285 Laboratory Tests Past 24 Hrs POC Glucose POC Glucose 174 H 289 H 113 H POC Glucose 276 H Discharge Diet: Low fat/ Low Cholesterol Home Medications: Medications to take at Discharge Acetaminophen 650 mg PO Q4H PRN PRN 07/04/18 Apixaban [Eliquis] 2.5 mg PO BID 07/04/18 Bisacodyl 10 mg RC DAILY PRN PRN 07/04/18 Calcium Carbonate 500 mg PO TID 07/04/18 Glucagon 1 mg IM X1 PRN 07/04/18 Insulin Lispro [Humalog] 0 unit SQ 4X/DAY 07/04/18 Ipratropium/Albuterol Sulfate [Duoneb] 3 ml INHALATION Q2H PRN PRN 07/04/18 Magnesium Hydroxide [Milk Of Magnesia] 30 ml PO DAILY PRN PRN 07/04/18 Melatonin/Pyridoxine HCl (B6) [Melatonin 3 mg Tablet] 1 each PO QHS PRN PRN 07/04/18 Miconazole Nitrate 1 gm MC TID 07/04/18 Na Phos,M-B/Na Phos,Di-Ba [Fleet Enema] 133 ml RC DAILY PRN PRN 07/04/18 Omeprazole 20 mg PO DAILY 07/04/18 Sennosides [Senna] 8.6 mg PO DAILY PRN PRN 07/04/18 Furosemide [Lasix] 20 mg PO DAILY #30 tab 07/13/18 Following Prescrptions Were Given to Patient: Furosemide [Lasix] 20 mg PO DAILY #30 tab Primary Care Physician: Patsy Cabrera [ALLIED HEALTH PROFESSIONAL] - Please follow up with your Primary Care Physician in: one week Please Follow Up With: Srinivas Montgomery MD When: 1 week Please Follow Up With: John Berger DO When: 1-2 weeks Disposition: Longterm facility Minutes spent on discharge:: 40 Patient Condition:: Stable Medical Necessity - Tobacco Use Smoking Status: Former smoker Tobacco Use: Cigarettes Meaningful Use Info Meaningful Use Diagnoses (Choose all that apply): CHF - CHF BAILEE/ARB ordered at discharge?: No Reason BAILEE/ARB not ordered?: Hypotension Documented LVEF (%): 65 Code Visit Inpatient E AND M: 61678 Disch Hosp 07/13/18 2714 <Electronically signed by Keeley Wells MD> Date Keeley Wells MD Cosigner Signature (if applicable): Date CC: Patsy Cabrera; Keeley Wells MD; Ajith Sainz DO Signed BEDSIDE GLUCOSE Collected: 07/13/2018 Status: F Source: [place] 11:22 AM [facility] REPOSITORY TYPE CODE TESTS RESULT OUT OF REFERENCE UNITS RANGE LAB L501.080 70-110 mg/dL High BEDSIDE GLU 118 Result Comment: MANAGEMENT OF PATIENT CARE PER NURSING PROTOCOL Performed By: #### L501.080 #### [facility] Laboratory Point of Care [address] [facility] [place] [address] TRANSFER TO EXTENDED Observed: 07/13/2018 Status: F Source: [facility] 10:06 AM [facility] REPOSITORY [facility] Medical Records Department [address] [place] [address] Transfer to Extended Care MR#: [id number] Acct: [id number] Name: JENNIFER CANTRELL Rep #: [id number] : 1945 72 From: Keeley Wells MD PCP: Aijth Sainz DO Status: ADM IN JENNIFER CANTRELL (Patient) (Health Ins. Claim No.) (Day of Discharge to Facility) Certification of patient admission REQUIRED AT TIME OF ADMISSION. I CERTIFY THAT POST-HOSPITAL ECF SERVICES ARE REQUIRED TO BE GIVEN ON AN IN-PATIENT BASIS BECAUSE OF THE ABOVE NAMED PATIENT'S NEED FOR FPC CARE ON A CONTINUING BASIS FOR THE CONDITION(S) FOR WHICH HE/SHE WAS RECEIVING IN-PATIENT HOSPITAL SERVICES PRIOR TO HIS/HER TRANSFER TO THE F. 07/13/18 1006 <Electronically signed by Keeley Wells MD> Date Keeley Wells MD - Diet 07/05/18 09:53 Diet: Carbohydrate Controlled Food consistency:: Soft Liquid Consistency:: Regular/Thin Dietary Modifications:: Soft Diet Is pt able to select menu?: Yes Diet Comments: Upright (chair if possible) w/ meals, remain upright 30-60 min (GERD) - Routine Orders/Code Status Enema Type: Fleetz Enema Frequency: Daily PRN Suppository Type: Dulcolax 10mg Suppository Frequency: Daily PRN O2 Liters per Minute: 2 O2 Frequency: Continuous Keep PO Greater than or Equal to (%): 92 Routine Lab Work: BMP - in 2 days, then weekly to monitor kidney function - Wound(s) L FA Wound Type: Skin Tear Dressing Change: Adaptic Right post rib Wound Type: Pressure Injury Dressing Change: Mepilex coccyx Wound Type: Pressure Injury Dressing Change: Mepilex Right forearm Wound Type: Skin Tear RT SIDE OF BACK Wound Type: Puncture Dressing Change: Dry Sterile Dressing left back Wound Type: Puncture - Therapies Weight Bearing: Weight bearing as tolerated Physical Therapy: Eval and Treat Occupational Therapy: Eval and Treat - Allergies/Procedures Done in Hospital Allergies/Adverse Reactions: Allergies simvastatin [From Zocor] Allergy (Verified 07/04/18 09:48) Unknown - Type of Care/Length of Stay Estimated LOS: More Than 30 Days Type of Care Needed: Skilled Rehab Potential: Fair Prognosis: Fair - Additional Orders/Day of Discharge Day of Discharge: 07/13/18 - Dietary and Speech Recommendations Dietitian Recommendations/Changes: Consider Rufino 1 packet BID for skin integrity. Rec CHO controlled, cardiac, low sodium diet w/ 1500 cc fluid restriction as indicated- consistency per [employer]. Pt would benefit from ONS d/t poor PO intake, signs/symptoms of malnutrition, and pressure injuries but is refusing at this time. Will try magic cup w/ meals as tolerated. - Follow Up Care Primary Care Physician: Patsy Cabrera [ALLIED HEALTH PROFESSIONAL] - Please follow up with your Primary Care Physician in: one week Please Follow Up With: Srinivas Montgomery MD When: 1 week Please Follow Up With: John Berger DO When: 1-2 weeks 07/13/18 1006 <Electronically signed by Keeley Wells MD> Date Keeley Wells MD CC: John Berger D.O.; Ajith Sainz DO; Alex Domínguez MD Signed BEDSIDE GLUCOSE Collected: 07/13/2018 Status: F Source: [place] 6:45 AM [facility] REPOSITORY TYPE CODE TESTS RESULT OUT OF REFERENCE UNITS RANGE LAB L501.080 70-110 mg/dL High BEDSIDE GLU 174 Result Comment: MANAGEMENT OF PATIENT CARE PER NURSING PROTOCOL Performed By: #### L501.080 #### [facility] Laboratory Point of Care [address] [place] [address] BASIC METABOLIC Collected: 07/13/2018 Status: F Source: [place] PROFILE (BMP) 6:15 AM [facility] REPOSITORY TYPE CODE TESTS RESULT OUT OF RANGE REFERENCE UNITS LAB L501.0100 74-106 mg/dL High GLU 176 Result Comment: Fasting Glucose result greater than or equal to 126 mg/dL suggests DIABETES MELLITUS per A.D.A. criteria. Please note revised GLUCOSE reference range effective 2017. LAB L501.1000 7-18 mg/dL High BUN 22 LAB L501.1100 0.55-1.02 mg/dL High CREAT,SERUM 1.78 Result Comment: The validity of the calculated GFR AND GFRAA in patients over 70 years has not been determined. Clinical correlation is essential. LAB L501.1110 >60 mL/min Low EST GFR 30 Result Comment: Non- GFR Calc LAB L501.1115 >60 mL/min Low EST GFR - AA 36 Result Comment: GFR Calc LAB L501.1255 ml/min Normal Estimated CRCL 19.92 LAB L501.1300 10-20 RATIO Normal BUN/CRE 12.4 LAB L501.2200 8.5-10 mg/dL Low .1 CA 7.0 LAB L501.5300 136-14 mmol/L Normal 5 NA 140 LAB L501.5600 3.5-5. mmol/L Normal 1 K 3.6 Result Comment: Slight Hemolysis, Result may be falsely increased. LAB L501.5900 98-107 mmol/L Normal CL 104 LAB L501.6100 21.0-32.0 mmol/L Normal CO2 28.0 LAB L501.6200 5-15 Normal 8 GAP Performed By: #### L500.2500 #### [facility] [address] [place], [address] BEDSIDE GLUCOSE Collected: 07/12/2018 Status: F Source: [place] 9:09 PM [facility] REPOSITORY TYPE CODE TESTS RESULT OUT OF REFERENCE UNITS RANGE LAB L501.080 70-110 mg/dL High BEDSIDE GLU 289 Result Comment: MANAGEMENT OF PATIENT CARE PER NURSING PROTOCOL Performed By: #### L501.080 #### [facility] Laboratory Point of Care [address] [place] [address] BEDSIDE GLUCOSE Collected: 07/12/2018 Status: F Source: [place] 4:51 PM [facility] REPOSITORY TYPE CODE TESTS RESULT OUT OF REFERENCE UNITS RANGE LAB L501.080 70-110 mg/dL High BEDSIDE GLU 113 Result Comment: MANAGEMENT OF PATIENT CARE PER NURSING PROTOCOL Performed By: #### L501.080 #### [facility] Laboratory Point of Care [address] [place] [address] CHEST INSP/EXP 2 VIEW Observed: 07/12/2018 Status: F Source: [place] 1:15 PM [facility] REPOSITORY [facility] Imaging Services [address] [place] [address] Chest Insp/Exp 2 View MR#: [id number] Acct: [id number] Name: JENNIFER CANTRELL Joni Rep #: [id number] : 1945 F 72 From: David Santamaria MD PCP: Ajith Sainz DO Status: ADM IN Study: Chest Insp/Exp 2 View Date of Exam: 07/12/18 Exam# [id number] Ordering Dr: David Santamaria MD STUDY: X-RAY CHEST REASON FOR EXAM: Female, 72 years old. The patient is status post left thoracentesis. TECHNIQUE: AP inspiration and expiration views appear COMPARISON: Comparison is made with prior study dated July 11, 2018. FINDINGS: The patient is status post left thoracentesis. There is no evidence of pneumothorax. Mild residual pleural-parenchymal changes persist at the left lung base. There is evidence of a small right pleural effusion with underlying infiltration and/or atelectasis. RAD/Chest Insp/Exp 2 View IMPRESSION: Status post left thoracentesis. There is no evidence of pneumothorax. Electronically Signed: David Santamaria MD at 8:05 EST Tel [phone], Service support , CC: David Santamaria MD; Ajith Sainz DO Mushroom Grower: Signed THORACENTESIS W US Observed: 07/12/2018 Status: F Source: [place] 12:42 PM [facility] REPOSITORY [facility] Imaging Services [address] [place] [address] Thoracentesis W US MR#: [id number] Acct: [id number] Name: JENNIFER CANTRELL Rep #: [id number] : 1945 F 72 From: David Santamaria MD PCP: Ajith Sainz DO Status: ADM IN Study: Thoracentesis W US Date of Exam: 07/12/18 Exam# [id number] Ordering Dr: Keeley Wells MD PROCEDURE: ULTRASOUND GUIDED THORACENTESIS. DATE: July 12, 2018. INDICATION: Female, 72 years old. Left pleural effusion PHYSICIAN: David Santamaria M.D. PROCEDURE: The risks, benefits, and alternatives to the procedure were explained to the left. The specific risks of bleeding, infection, and pneumothorax requiring chest tube insertion were discussed and accepted. Written informed consent was obtained. Ultrasonographic evaluation of the left lower pleural space was carried out. An adequate pocket was identified. The patient was placed in the sitting, upright position. The overlying skin was prepped and draped in sterile fashion. 1% lidocaine was administered subcutaneously for local anesthesia. Under ultrasound guidance, a 5 [place] thoracentesis needle/catheter system was advanced into the left posterior lower pleural fluid collection. Approximately 750 mL of paula-colored fluid was drained. The catheter was removed, and a sterile dressing was applied. The patient tolerated the procedure well. A chest x-ray was ordered. US/Thoracentesis W US IMPRESSION: Ultrasound-guided left thoracentesis. Electronically Signed: David Santamaria MD at 13:35 EST Tel [phone], Service support , CC: Keeley Wells MD; Ajith Sainz DO Mushroom Grower: Signed BEDSIDE GLUCOSE Collected: 07/12/2018 Status: F Source: [place] 11:11 AM [facility] REPOSITORY TYPE CODE TESTS RESULT OUT OF REFERENCE UNITS RANGE LAB L501.080 70-110 mg/dL High BEDSIDE GLU 276 Result Comment: MANAGEMENT OF PATIENT CARE PER NURSING PROTOCOL Performed By: #### L501.080 #### [facility] Laboratory Point of Care [address] [place] [address] BEDSIDE GLUCOSE Collected: 07/12/2018 Status: F Source: [place] 6:46 AM [facility] REPOSITORY TYPE CODE TESTS RESULT OUT OF REFERENCE UNITS RANGE LAB L501.080 70-110 mg/dL High BEDSIDE GLU 212 Result Comment: MANAGEMENT OF PATIENT CARE PER NURSING PROTOCOL Performed By: #### L501.080 #### [facility] Laboratory Point of Care [address] [place] [address] CBC W/DIFF, AUTOMATED Collected: 07/12/2018 Status: F Source: [place] 5:20 AM [facility] REPOSITORY TYPE CODE TESTS RESULT OUT OF RANGE REFERENCE UNITS LAB L100.1000 4.4-11.0 K/mm3 Normal WBC 9.4 LAB L100.1200 4.2-5.4 M/mm3 Low RBC 3.77 LAB L100.1300 12.0-15.0 g/dl Low HGB 11.3 LAB L100.1400 37-47 % Normal HCT 37.3 LAB L100.1500 81-99 fL Normal MCV 98.9 LAB L100.1600 27.0-32.0 pg Normal MCH 30.0 LAB L100.1700 32-36 g/gl Low MCHC 30.3 LAB L100.1810 11.6-14.6 % High RDW CV 17.7 LAB L100.1820 35.1-43.9 fl High RDW SD 62.3 LAB L100.1900 150-450 K/mm3 Low PLT 118 LAB L100.2000 6.2-12.0 fl Normal MPV 10.8 LAB L100.2100 47-70 % High NEUT% 83.7 LAB L100.2200 19-41 % Low LY% 8.2 LAB L100.2300 0-10 % Normal MONO% 6.4 LAB L100.2400 0-5 % Normal EO% 0.6 LAB L100.2500 0-1 % Normal BASO% 0.6 LAB L100.2550 0.0-0.9 % Normal IM GRAN % 0.500 Result Comment: IG% - Immature Granulocytes (promyelocytes, myelocytes and metamyelocytes) > 1% indicates that a LEFT SHIFT is Present. LAB L100.2620 2.0-7.7 X10 3/uL High Absolute Neut 7.8 LAB L100.2720 0.83-4.51 X10 3/ul Low Absolute Lymph 0.77 Performed By: #### L100.0100 #### [facility] [address] [place], [address] BASIC METABOLIC Collected: 07/12/2018 Status: F Source: [place] PROFILE ([facility]) 5:20 AM [facility] REPOSITORY TYPE CODE TESTS RESULT OUT OF RANGE REFERENCE UNITS LAB L501.0100 74-106 mg/dL High GLU 209 Result Comment: Glucose result greater than or equal to 200 mg/dL suggests DIABETES MELLITUS per A.D.A. criteria. Please note revised GLUCOSE reference range effective 2017. LAB L501.1000 7-18 mg/dL High BUN 21 LAB L501.1100 0.55-1.02 mg/dL High CREAT,SERUM 1.85 Result Comment: The validity of the calculated GFR AND GFRAA in patients over 70 years has not been determined. Clinical correlation is essential. LAB L501.1110 >60 mL/min Low EST GFR 28 Result Comment: Non- GFR Calc LAB L501.1115 >60 mL/min Low EST GFR - AA 34 Result Comment: GFR Calc LAB L501.1255 ml/min Normal Estimated CRCL 19.16 LAB L501.1300 10-20 RATIO Normal BUN/CRE 11.4 LAB L501.2200 8.5-10 mg/dL Low .1 CA 7.2 LAB L501.5300 136-14 mmol/L Normal 5 NA 141 LAB L501.5600 3.5-5. mmol/L Normal 1 K 3.8 LAB L501.5900 98-107 mmol/L Normal CL 103 LAB L501.6100 21.0-3 mmol/L Normal 2.0 CO2 28.0 LAB L501.6200 5-15 Normal GAP 10 Performed By: #### L500.2500 #### [facility] [address] [facility] [address] BEDSIDE GLUCOSE Collected: 07/11/2018 Status: F Source: [place] 10:38 PM [facility] REPOSITORY TYPE CODE TESTS RESULT OUT OF REFERENCE UNITS RANGE LAB L501.080 70-110 mg/dL High BEDSIDE GLU 378 Result Comment: MANAGEMENT OF PATIENT CARE PER NURSING PROTOCOL Performed By: #### L501.080 #### [facility] Laboratory Point of Care [address] [place] [address] BEDSIDE GLUCOSE Collected: 07/11/2018 Status: F Source: [place] 4:16 PM [facility] REPOSITORY TYPE CODE TESTS RESULT OUT OF REFERENCE UNITS RANGE LAB L501.080 70-110 mg/dL High BEDSIDE GLU 213 Result Comment: MANAGEMENT OF PATIENT CARE PER NURSING PROTOCOL Performed By: #### L501.080 #### [facility] Laboratory Point of Care [address] [place] [address] BEDSIDE GLUCOSE Collected: 07/11/2018 Status: F Source: [place] 12:11 PM [facility] REPOSITORY TYPE CODE TESTS RESULT OUT OF REFERENCE UNITS RANGE LAB L501.080 70-110 mg/dL High BEDSIDE GLU 124 Result Comment: MANAGEMENT OF PATIENT CARE PER NURSING PROTOCOL Performed By: #### L501.080 #### [facility] Point of Care [address] [place] [address] CHEST INSP/EXP 2 VIEW Observed: 07/11/2018 Status: F Source: [place] 11:47 AM [facility] REPOSITORY [facility] Imaging Services [address] [place] [address] Chest Insp/Exp 2 View MR#: [id number] Acct: [id number] Name: JENNIFER CANTRELL Rep #: [id number] : 1945 F 72 From: Ronda Portillo MD PCP: Ajith Sainz DO Status: ADM IN Study: Chest Insp/Exp 2 View Date of Exam: 07/11/18 Exam# [id number] Ordering Dr: David Santamaria MD STUDY: X-RAY CHEST REASON FOR EXAM: Female, 72 years old. Post right-sided thoracentesis TECHNIQUE: Single frontal view of the chest. Inspiratory and expiratory level. COMPARISON: 07/09/2018. FINDINGS: There is no demonstrated pneumothorax. There is markedly decreased right pleural effusion when compared to previous examination with residual small fluid in the right base, minimal blunting of the right costophrenic angle, the minor fissure is outlined, there is atelectasis/volume loss in the right base. The aeration overall is markedly improved in the right lung. There is persistent airspace disease in the left lung with vascular prominence and effusion. Continued opacification left hemidiaphragm. 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 Normal mediastinum and billy. Normal visualized pulmonary arteries. There is atherosclerotic calcification of the aortic arch with tortuosity. There are diffuse degenerative changes of the visualized thoracic spine. There is demineralization of osseous structures. Levoscoliosis of the upper lumbar spine. RAD/Chest Insp/Exp 2 View IMPRESSION: Status post thoracotomy with markedly decreased right pleural effusion and no pneumothorax detected. Residual airspace disease with atelectasis and minimal residual effusion in the right base. Stable cardiac enlargement, presumed left pleural effusion and airspace disease, postsurgical changes. Electronically Signed: Ronda Portillo MD at 12:08 EST , Service support , CC: David Santamaria MD; Ajith Sainz DO Mushroom Grower: Signed BODY FLUID CELL Collected: 07/11/2018 Status: C Source: [place] COUNT+DIFF 11:30 AM [facility] REPOSITORY Order Comment: The reference range and other method performance specifications have not been established for this body fluid. The test must be integrated into the clinical context for interpretation. TYPE CODE TESTS RESULT OUT OF RANGE REFERENCE UNITS LAB L200.3380 0.000-0.000 10 3/ul High BFTC# 0.056 Result Comment: This is the Total Number of Nucleated Cell Types in the Body Fluid. LAB L200.3400 /mm3 Normal RBC/BF 30 Result Comment: AMENDED REPORT 07/11/18 1439 RBC/BF previously reported as: 27 /mm3 LAB L200.3500 10 3/uL Normal 0.049 WBC/BF LAB L200.3510 % Normal 53.1 BF PMN WBC% LAB L200.3515 % Normal 46.9 BF MN WBC% LAB L200.3520 10 3/uL Normal 0.023 BF MN WBC# LAB L200.3525 10 3/uL Normal 0.026 BF PMN WBC# LAB L200.4400 Normal PATH COMM/BF Reviewed Result Comment: Negative for malignant cells. Please also correlate with cytology report [id number] Zaki Astorga M.D. 07/12/18 AMENDED REPORT 07/12/18 1305 PATH COMM/BF previously reported as: May follow LAB L200.3100 THORACENTESIS Normal SOURCE/BF LAB L200.3200 COLOR/BF LT YEL Normal LAB L200.3300 CLEAR Normal APPEAR/BF LAB L200.3600 % PMN 64 Normal LAB L200.3700 % LYMPH 18 Normal LAB L200.3800 % MONO/BF 18 Normal LAB L200.4420 BFM 2ND SEE COMMENT Normal SPEC Performed By: #### L200.0200 #### [facility] [address] [place], [address] GLUCOSE, BODY FLUID Collected: 07/11/2018 Status: C Source: [place] 11:30 AM [facility] REPOSITORY Order Comment: DATE CHANGED PER DIRECTOR OF TESTINGANNA SAMPSON ON 07/07/18 TO Mon07/11/18 Specimen Source: ? TYPE CODE TESTS RESULT OUT OF RANGE REFERENCE UNITS LAB L503.0100 40-70 mg/dL High GLU,BF 204 Result Comment: AMENDED REPORT 07/18/18 1305 GLU,BF previously reported as: 207 H mg/dL Performed By: #### L503.0100, L503.0300, L504.0250 #### [facility] [address] [place], [address] PROTEIN, BODY FLUID Collected: 07/11/2018 Status: C Source: [place] 11:30 AM [facility] REPOSITORY Order Comment: DATE CHANGED PER DIRECTOR OF TESTING ADRIÁN ON 07/07/18 TO Mon07/11/18 Specimen Source: ? TYPE CODE TESTS RESULT OUT OF RANGE REFERENCE UNITS LAB L503.0300 Not Establ. g/dL Normal 0.6 PROTEIN,BF Result Comment: AMENDED REPORT 07/18/18 1305 PROTEIN,BF previously reported as: 0.7 g/dL Performed By: #### L503.0100, L503.0300, L504.0250 #### [facility] [address] [place], [address] LDH,BODY FLUID Collected: 07/11/2018 Status: F Source: [place] 11:30 AM [facility] REPOSITORY Order Comment: DATE CHANGED PER DIRECTOR OF TESTINGANNA SAMPSON ON 07/07/18 TO Mon07/11/18 Specimen Source: ? TYPE CODE TESTS RESULT OUT OF RANGE REFERENCE UNITS LAB L504.0250 Not Establ. Units/l Normal LDH,BF 47 Performed By: #### L503.0100, L503.0300, L504.0250 #### [facility] [address] [place], [address] CYTOLOGY, BODY FLUID / Collected: 07/11/2018 Status: F Source: [place] CSF 11:30 AM [facility] REPOSITORY TYPE CODE TESTS RESULT OUT OF RANGE REFERENCE UNITS LAB L350.1000 SEE Normal PATHOLOGY CYTOLOGY,BF REPORT /CSF Result Comment: Specimen submitted to Anatomical Pathology Department for testing. Performed By: #### L350.1000 #### [facility] [address] [place], [address] PROTHROMBIN TIME W/INR Collected: 07/11/2018 Status: F Source: [place] 8:58 AM [facility] REPOSITORY TYPE CODE TESTS RESULT OUT OF RANGE REFERENCE UNITS LAB L300.4150 11.7-14.9 SECONDS Normal PROTIME 13.7 LAB L300.4200 Normal INR 1.1 Performed By: #### L300.3900, L300.4310 #### [facility] [address] [place], [address] PARTIAL THROMBOPLAST Collected: 07/11/2018 Status: F Source: [place] TIME 8:58 AM [facility] REPOSITORY TYPE CODE TESTS RESULT OUT OF RANGE REFERENCE UNITS LAB L300.4310 24.1-36.2 Seconds Normal PTT 28.1 Performed By: #### L300.3900, L300.4310 #### [facility] [address] [place], [address] BASIC METABOLIC Collected: 07/11/2018 Status: F Source: MEMO PROFILE (BMP) 7:05 AM [facility] REPOSITORY TYPE CODE TESTS RESULT OUT OF RANGE REFERENCE UNITS LAB L501.0100 74-106 mg/dL High GLU 109 Result Comment: Fasting Glucose result from 100 to 125 mg/dL suggests IMPAIRED HOMEOSTASIS per A.D.A. criteria. Please note revised GLUCOSE reference range effective 2017. LAB L501.1000 7-18 mg/dL Normal BUN 15 LAB L501.1100 0.55-1.02 mg/dL High CREAT,SERUM 1.48 Result Comment: The validity of the calculated GFR AND GFRAA in patients over 70 years has not been determined. Clinical correlation is essential. LAB L501.1110 >60 mL/min Low EST GFR 37 Result Comment: Non- GFR Calc LAB L501.1115 >60 mL/min Low EST GFR - AA 44 Result Comment: GFR Calc LAB L501.1255 ml/min Normal Estimated CRCL 23.95 LAB L501.1300 10-20 RATIO Normal BUN/CRE 10.1 LAB L501.2200 8.5-10 mg/dL Low .1 CA 7.2 LAB L501.5300 136-14 mmol/L Normal 5 NA 140 LAB L501.5600 3.5-5. mmol/L Low 1 K 3.3 LAB L501.5900 98-107 mmol/L Normal CL 101 LAB L501.6100 21.0-3 mmol/L Normal 2.0 CO2 31.0 LAB L501.6200 5-15 Normal GAP 8 Performed By: #### L500.2500 #### [facility] [address] [place], [address] CBC W/DIFF, AUTOMATED Collected: 07/11/2018 Status: F Source: [place]INS 7:05 AM [facility] REPOSITORY TYPE CODE TESTS RESULT OUT OF RANGE REFERENCE UNITS LAB L100.1000 4.4-11.0 K/mm3 Normal WBC 8.4 LAB L100.1200 4.2-5.4 M/mm3 Low RBC 3.45 LAB L100.1300 12.0-15.0 g/dl Low HGB 10.3 LAB L100.1400 37-47 % Low HCT 33.0 LAB L100.1500 81-99 fL Normal MCV 95.7 LAB L100.1600 27.0-32.0 pg Normal MCH 29.9 LAB L100.1700 32-36 g/gl Low MCHC 31.2 LAB L100.1810 11.6-14.6 % High RDW CV 17.8 LAB L100.1820 35.1-43.9 fl High RDW SD 61.5 LAB L100.1900 150-450 K/mm3 Low PLT 119 LAB L100.2000 6.2-12.0 fl Normal MPV 9.5 LAB L100.2100 47-70 % High NEUT% 82.7 LAB L100.2200 19-41 % Low LY% 8.6 LAB L100.2300 0-10 % Normal MONO% 6.6 LAB L100.2400 0-5 % Normal EO% 1.1 LAB L100.2500 0-1 % Normal BASO% 0.5 LAB L100.2550 0.0-0.9 % Normal IM GRAN % 0.500 Result Comment: IG% - Immature Granulocytes (promyelocytes, myelocytes and metamyelocytes) > 1% indicates that a LEFT SHIFT is Present. LAB L100.2620 2.0-7.7 X10 3/uL Normal Absolute Neut 6.9 LAB L100.2720 0.83-4.51 X10 3/ul Low Absolute Lymph 0.72 Performed By: #### L100.0100 #### [facility] [address] [facility]. [place], [place], [address] PROTEIN, TOTAL Collected: 07/11/2018 Status: F Source: [place]INS 7:05 AM [facility] REPOSITORY TYPE CODE TESTS RESULT OUT OF RANGE REFERENCE UNITS LAB L501.1500 6.4-8.2 g/dL Low T PROT 5.8 LAB L501.1950 2.2-4.2 g/dL Normal GLOB 3.8 LAB L501.2000 0.9-2.4 RATIO Low A/G 0.5 Performed By: #### L001.0705, L504.2610 #### [facility] [address] [place], [place], [address] LDH Collected: 07/11/2018 Status: F Source: [place]INS 7:05 AM [facility] REPOSITORY TYPE CODE TESTS RESULT OUT OF RANGE REFERENCE UNITS LAB L504.2610 84-246 U/L High LDH 427 Performed By: #### L001.0705, L504.2610 #### [facility] [address] [place], [place], [address] BEDSIDE GLUCOSE Collected: 07/11/2018 Status: F Source: [place] 6:33 AM [facility] REPOSITORY TYPE CODE TESTS RESULT OUT OF REFERENCE UNITS RANGE LAB L501.080 70-110 mg/dL High BEDSIDE GLU 122 Result Comment: MANAGEMENT OF PATIENT CARE PER NURSING PROTOCOL Performed By: #### L501.080 #### [facility] Point of Care [address] [place] [address] THORACENTESIS W US Observed: 07/11/2018 Status: F Source: [place] 12:00 AM [facility] REPOSITORY [facility] Imaging Services [address] [place] [address] Thoracentesis W US MR#: [id number] Acct: [id number] Name: JENNIFER CANTRELL Rep #: [id number] : 1945 F 72 From: David Santamaria MD PCP: Ajith Sainz DO Status: ADM IN Study: Thoracentesis W US Date of Exam: 07/11/18 Exam# [id number] Ordering Dr: Keeley Wells MD PROCEDURE: ULTRASOUND GUIDED THORACENTESIS. DATE: July 11, 2018.. INDICATION: Female, 72 years old. Right pleural effusion. PHYSICIAN: David Santamaria M.D. PROCEDURE: The risks, benefits, and alternatives to the procedure were explained to the patient. The specific risks of bleeding, infection, and pneumothorax requiring chest tube insertion were discussed and accepted. Written informed consent was obtained. Ultrasonographic evaluation of the right lower pleural space was carried out. An adequate pocket was identified. The patient was placed in the sitting, upright position. The overlying skin was prepped and draped in sterile fashion. 1% lidocaine was administered subcutaneously for local anesthesia. Under ultrasound guidance, a 5 [place] thoracentesis needle/catheter system was advanced into the right posterior lower pleural fluid collection. Approximately 1420 mL of paula-colored fluid was drained. The catheter was removed, and a sterile dressing was applied. A specimen was collected and sent to the laboratory for analysis, as requested by the referring clinician. The patient tolerated the procedure well. A chest x-ray was ordered. US/Thoracentesis W US IMPRESSION: Ultrasound-guided right thoracentesis. Electronically Signed: David Santamaria MD at 12:55 EST Tel [phone], Service support , CC: Keeley Wells MD; Ajith Sainz DO Mushroom Grower: Signed FLUID/WASHING Observed: 07/11/2018 Status: F Source: MEMO 12:00 AM [facility] REPOSITORY Patient: JENNIFER CANTRELL : 1945 (72/F) Acct Num: [id number] Phys: Keeley Wells MD Unit Num: [id number] Loc: PCU [id number] Specimen: [id number] Received: 07/11/18 - 1419 Spec Type: Fluid TISSUES 1 TISSUES: THORACIC FLUID CYTOLOGY GROSS Received is 100 ml of yellow cloudy fluid labeled with the patient's name and and designated per the requisition as thoracentesis. Submitted for cytology preparation including cell block. / 07/11/18 TC:5 CPT: 74555, 54871 CYTOLOGY STUDY Slides are reviewed. DIAGNOSIS CYTOLOGY Thoracentesis fluid for cytology (cytospin and cell block): Negative for malignant cells. AM:emmanuel 07/12/18 HEADER OPERATION: Ultrasound-guided right thoracentesis PRE-OP DIAGNOSIS: Right pleural effusion TISSUE SUBMITTED: Thoracentesis fluid for cytology Signed Leonard Pena DO 07/12/18 <signature on file> Performed By: #### PFLU #### [facility] [address] [place], [address] BEDSIDE GLUCOSE Collected: 07/10/2018 Status: F Source: MEMO 11:13 PM [facility] REPOSITORY TYPE CODE TESTS RESULT OUT OF REFERENCE UNITS RANGE LAB L501.080 70-110 mg/dL High BEDSIDE GLU 364 Result Comment: MANAGEMENT OF PATIENT CARE PER NURSING PROTOCOL Performed By: #### L501.080 #### [facility] Point of Care [address] [place] [address] BEDSIDE GLUCOSE Collected: 07/10/2018 Status: F Source: MEMO 4:19 PM [facility] REPOSITORY TYPE CODE TESTS RESULT OUT OF REFERENCE UNITS RANGE LAB L501.080 70-110 mg/dL High BEDSIDE GLU 366 Result Comment: MANAGEMENT OF PATIENT CARE PER NURSING PROTOCOL Performed By: #### L501.080 #### [facility] Point of Care [address] [place] [address] BEDSIDE GLUCOSE Collected: 07/10/2018 Status: F Source: MEMO 12:00 PM [facility] REPOSITORY TYPE CODE TESTS RESULT OUT OF REFERENCE UNITS RANGE LAB L501.080 70-110 mg/dL High BEDSIDE GLU 184 Result Comment: MANAGEMENT OF PATIENT CARE PER NURSING PROTOCOL Performed By: #### L501.080 #### [facility] Point of Care [address] [place] [address] CBC W/DIFF, AUTOMATED Collected: 07/10/2018 Status: F Source: MEMO 8:05 AM [facility] REPOSITORY TYPE CODE TESTS RESULT OUT OF RANGE REFERENCE UNITS LAB L100.1000 4.4-11.0 K/mm3 Normal WBC 7.3 LAB L100.1200 4.2-5.4 M/mm3 Low RBC 3.92 LAB L100.1300 12.0-15.0 g/dl Low HGB 11.6 LAB L100.1400 37-47 % Normal HCT 37.9 LAB L100.1500 81-99 fL Normal MCV 96.7 LAB L100.1600 27.0-32.0 pg Normal MCH 29.6 LAB L100.1700 32-36 g/gl Low MCHC 30.6 LAB L100.1810 11.6-14.6 % High RDW CV 17.8 LAB L100.1820 35.1-43.9 fl High RDW SD 62.0 LAB L100.1900 150-450 K/mm3 Low PLT 115 LAB L100.2000 6.2-12.0 fl Normal MPV 10.0 LAB L100.2100 47-70 % High NEUT% 83.0 LAB L100.2200 19-41 % Low LY% 8.9 LAB L100.2300 0-10 % Normal MONO% 6.8 LAB L100.2400 0-5 % Normal EO% 0.4 LAB L100.2500 0-1 % Normal BASO% 0.4 LAB L100.2550 0.0-0.9 % Normal IM GRAN % 0.500 Result Comment: IG% - Immature Granulocytes (promyelocytes, myelocytes and metamyelocytes) > 1% indicates that a LEFT SHIFT is Present. LAB L100.2620 2.0-7.7 X10 3/uL Normal Absolute Neut 6.1 LAB L100.2720 0.83-4.51 X10 3/ul Low Absolute Lymph 0.65 Performed By: #### L100.0100 #### [facility] [address] [facility]. [place], [place], [address] BEDSIDE GLUCOSE Collected: 07/10/2018 Status: F Source: [place]WKINS 7:04 AM [facility] REPOSITORY TYPE CODE TESTS RESULT OUT OF REFERENCE UNITS RANGE LAB L501.080 70-110 mg/dL High BEDSIDE GLU 187 Result Comment: MANAGEMENT OF PATIENT CARE PER NURSING PROTOCOL Performed By: #### L501.080 #### [facility] Point of Care [address] [facility]. [place], [place] [address] BASIC METABOLIC Collected: 07/10/2018 Status: F Source: [place]INS PROFILE (BMP) 6:04 AM [facility] REPOSITORY TYPE CODE TESTS RESULT OUT OF RANGE REFERENCE UNITS LAB L501.0100 74-106 mg/dL High GLU 180 Result Comment: Fasting Glucose result greater than or equal to 126 mg/dL suggests DIABETES MELLITUS per A.D.A. criteria. Please note revised GLUCOSE reference range effective 2017. LAB L501.1000 7-18 mg/dL Normal BUN 15 LAB L501.1100 0.55-1.02 mg/dL High CREAT,SERUM 1.23 Result Comment: The validity of the calculated GFR AND GFRAA in patients over 70 years has not been determined. Clinical correlation is essential. LAB L501.1110 >60 mL/min Low EST GFR 45 Result Comment: Non- GFR Calc LAB L501.1115 >60 mL/min Low EST GFR - AA 55 Result Comment: GFR Calc LAB L501.1255 ml/min Normal Estimated CRCL 28.82 LAB L501.1300 10-20 RATIO Normal BUN/CRE 12.2 LAB L501.2200 8.5-10 mg/dL Low .1 CA 7.7 LAB L501.5300 136-14 mmol/L Normal 5 NA 140 LAB L501.5600 3.5-5. mmol/L Normal 1 K 3.5 Result Comment: Slight Hemolysis, Result may be falsely increased. LAB L501.5900 98-107 mmol/L Normal CL 103 LAB L501.6100 21.0-32.0 mmol/L Normal CO2 26.0 LAB L501.6200 5-15 Normal GAP 11 Performed By: #### L500.2500 #### [facility] [address] [place], [address] BEDSIDE GLUCOSE Collected: 07/09/2018 Status: F Source: [place]WKINS 9:14 PM [facility] REPOSITORY TYPE CODE TESTS RESULT OUT OF REFERENCE UNITS RANGE LAB L501.080 70-110 mg/dL High BEDSIDE GLU 149 Result Comment: MANAGEMENT OF PATIENT CARE PER NURSING PROTOCOL Performed By: #### L501.080 #### [facility] Point of Care [address] [place] [address] BEDSIDE GLUCOSE Collected: 07/09/2018 Status: F Source: HAWKINS 4:42 PM [facility] REPOSITORY TYPE CODE TESTS RESULT OUT OF RANGE REFERENCE UNITS LAB L501.080 70-110 mg/dL Normal BEDSIDE GLU 95 Result Comment: MANAGEMENT OF PATIENT CARE PER NURSING PROTOCOL Performed By: #### L501.080 #### [facility] Point of Care [address] [place] [address] CONSULTATION Observed: 07/09/2018 Status: F Source: HAWKINS 2:32 PM [facility] REPOSITORY [facility] Medical Records Department [address] [place] [address] [place] [address] Consultation 07/09/18 1058 MR#: [id number] Acct: [id number] Name: JENNIFER CANTRELL Rep #: [id number] : 1945 72 From: John Berger DO PCP: Ajith Sainz DO Status: ADM IN Y Location: [place] [id number] Reason for Consult Date of Consultation: 07/09/18 Reason for Consultation: Respiratory failure, pleural effusion History of Present Illness: The patient is a 72-year-old female, with a history as outlined below, who initially presented to the emergency department on July 04 with complaints of shortness of breath. The patient does have a history of heart failure with preserved ejection fraction and recently underwent mitral valve replacement, pacemaker placement and did reportedly undergo a CABG in November. The patient was evaluated by cardiology and has been treated medically for acute decompensated heart failure throughout her hospitalization. She also did have a mild troponin elevation. Unfortunately, the patient never had a Barajas catheter placed. Therefore her I's and O's were inaccurate. She has been diuresed with little overall change in her respiratory status. Her chest imaging studies do reveal bilateral pleural effusions. She has been afebrile throughout her hospitalization and does not have any evidence of a leukocytosis. The patient did grow Pseudomonas from a urine culture. However, it was only 50- 80,000 colony-forming units. Her plain film chest x-ray does appear somewhat worse today and her BNP remains elevated at 900. The patient did present to the hospital on and that medication has been on hold since July 07. There were tentative plans to obtain an ultrasound- guided thoracentesis on Monday. Per nursing report, the patient's respiratory status waxes and wanes. She was previously on BiPAP and a Ventimask, but as of my interaction with her this afternoon, she is maintaining appropriate oxygen saturations on 4 L/min. The patient denies the presence of a cough, fevers or chills. Past Medical History Past Medical History (Chronic Problems): Chronic Problems CAD (coronary artery disease) (Chronic) Allergies simvastatin [From Zocor] Allergy (Verified 07/04/18 09:48) Unknown Home Medications: Ambulatory Orders Medication Instructions Recorded Acetaminophen 650 mg PO Q4H PRN PRN 07/04/18 Apixaban [Eliquis] 2.5 mg PO BID 07/04/18 Bisacodyl 10 mg RC DAILY PRN PRN 07/04/18 Surgical History: cholecystectomy, coronary bypass surgery, - - Mitral valve replacement, and permanent pacemaker. Smoking Status: Former smoker Tobacco Use: Cigarettes Alcohol: None Drugs: None - *Family History Maternal History Items: Diabetes, Heart Disease, Hypertension Paternal History Items: Cancer, Diabetes, Heart Disease, Hypertension, Stroke Review of Systems Constitutional: Denies: Chills, Fever Eyes: Denies: Blurred vision, Double vision HEENT: Denies: Head Aches, Sinus Congestion, Sinus Drainage Cardiovascular: Denies: Chest Pain, Palpitations Respiratory: Reports: Shortness of Breath. Denies: Cough, Sputum production Gastrointestinal: Denies: Abdominal Pain, Nausea, Vomiting Genitourinary: Reports: Frequency Musculoskeletal: Denies: Joint Pain, Joint Tenderness Skin: Denies: Rash, Wounds Neurological: Denies: Numbness, Tingling, Focal weakness Psychiatric: Denies: Anxiety, Depression, Homicidal Ideations, Suicidal Ideations Hematologic/ Lymphatic: Denies: Easy Bruising, Easy Bleeding Patient Problems: Active and Suspected Problems UTI (urinary tract infection) (Acute) CHF (congestive heart failure) (Acute) Objective: The patient's most recent lab work, culture data and imaging studies have all been personally reviewed. Surface echocardiogram dated July 06 revealed normal LV size and function with an ejection fraction of 65%. Right ventricular systolic pressure was estimated to be 47 mmHg. - Physical Exam General: Alert, Cooperative, No apparent distress, - - Sitting in bedside recliner. HEENT: Atraumatic, PERRLA, Normocephalic Oral: No Gingival or Mucosal Lesions/ Ulcerations Neck: Supple, No Nodes, Trachea Midline Lungs: - - Diminished air movement bilaterally. Poor, patient dependent, inspiratory effort. Cardiovascular: Regular rate, Regular Rhythm, Normal S1, Normal S2, No murmurs Abdomen: Bowel Sounds Present, Soft, Non Tender Extremities: No clubbing, No cyanosis, No edema Skin: No breakdown Musculoskeletal: No Tenderness to Palpation of Joints or Extremities Lymphatic: No Cervical, Supraclavicular, or Inguinal Adenopathy Neurological: Cranial nerves II-XII grossly intact, Neuro grossly intact Psych/Mental Status: Normal Affect, Appropriate Vital Signs Temp Pulse Resp BP Pulse Ox 36.5 C L 105 H 18 121/75 H 96 07/09/18 09:00 07/09/18 09:00 07/09/18 09:00 07/09/18 09:00 07/09/18 10:04 Oxygen Flow Rate (L/min) 4 Oxygen Delivery Method Nasal Cannula Weight: 116 lb 6.465 oz Body Mass Index (BMI) 24.0 Intake and Output for Last 24 Hours Intake Total 740 / 740 480 / 480 240 / 240 Balance 740 / 740 480 / 480 240 / 240 Microbiology Past 72 Hours 07/05/18 14:40 Stool Occult Blood ([place]) - Final Stool 07/04/18 10:20 Urine Culture - Final Urine Catheter - Barajas Pseudomonas aeroginosa Laboratory Tests Past 24 Hrs WBC 7.8 RBC 3.72 L Hgb 11.4 L Hct 36.6 L MCV 98.4 MCH 30.6 MCHC 31.1 L RDW 17.6 H RDW Differential 59.0 H POC Glucose POC Glucose 244 H 307 H 145 H POC Glucose 158 H Clinical Impression(s) from Imaging Studies Chest X-Ray 07/04/18 09:37 IMPRESSION: Bilateral pleural effusion more on the right side underlying infiltrate cannot be excluded Electronically Signed: Guerrero Ochoa at 10:44 EST Tel , Service support , Chest X-Ray 07/06/18 13:15 IMPRESSION: Large bilateral effusions atelectasis persistent since prior study pacemaker status post sternotomy. Electronically Signed: Susan Murphy MD at 18:16 EST Tel , Service support , Assessment/Plan All Active Problems UTI (urinary tract infection) (Acute) CHF (congestive heart failure) (Acute) RECOMMENDATIONS: 1. Obtain repeat plain film chest x-ray and BNP. 2. Ask cardiology to follow-up with the patient. 3. Continue diuresis. Will add metolazone to patient's regimen. 4. Place Barajas catheter to ensure accurate I's and O's. Continue fluid restriction as ordered. 5. Obtain daily weights. 6. Given that the patient is maintaining saturations on 4 L/min, there is no emergent indication for thoracentesis. IMPRESSIONS: 1. Acute hypoxic respiratory failure secondary to decompensated heart failure/bilateral pleural effusions Recommend continued attempts at volume optimization with diuretic therapy. Metolazone can be added to the patient's current loop diuretic therapy. Recommend reevaluation by cardiology. There is no emergent indication for thoracentesis at this time. I would also strongly recommend the placement of a Barajas catheter to document strict I's and O's. Continue fluid restriction and obtain daily weights. 2. Atrial fibrillation/coronary artery disease status post CABG/valvular heart disease Continue current medical management per cardiology recommendations. 3. Advanced age and deconditioning/diabetes/GERD Complicates care, management, recovery and prognosis. Okay to continue home medications from my perspective. This note was generated with SceneChatation software. It may contain incorrect words, spelling, and punctuation that were not noted in checking the note before signing. Code Visit Inpatient E AND M: 90905 Init Hosp L3 07/09/18 1432 <Electronically signed by John Berger DO> Date John Berger DO Cosigner Signature (if applicable): Date CC: John Berger D.O.; Ajith Sainz DO; Alex Domínguez MD Signed 12 LEAD ELECTROCARDIOGRAM Observed: 07/09/2018 Status: F Source: [place] 1:28 PM [facility] REPOSITORY [facility] Cardiovascular Services [address] [place] [address] 12 Lead EKG 07/04/18 0945 MR#: [id number] Acct: [id number] Name: JENNIFER CANTRELL Rep #: [id number] : 1945 72 From: Bk Castillo MD Attending Dr: Keeley Wells MD Status: ADM IN Ordering Dr: Donte Tran MD Date: 07/04/18 Location: [facility] Sex: F C Admitted: 07/04/18 Test Reason : SOB Blood Pressure : / mmHG Vent. Rate : 112 BPM Atrial Rate : 113 BPM P-R Int : 000 ms QRS Dur : 154 ms QT Int : 404 ms P-R-T Axes : 000 -87 060 degrees QTc Int : 551 ms Wide QRS rhythm Right bundle branch block Left anterior fascicular block Bifascicular block Anteroseptal infarct , age undetermined , cannot be excluded Abnormal ECG Confirmed by PORTIA SIMS, BK ([id number]), features editor MUNA BOYKIN ([id number]) on 07/09/2018 1:28:19 PM Referred By: UG Confirmed By:BK CASTILLO MD 07/09/18 1328 Date Bk Castillo MD CC: Keeley Wells MD; Ajith Sainz DO; Donte Tran MD Signed BEDSIDE GLUCOSE Collected: 07/09/2018 Status: F Source: [place] 11:19 AM [facility] REPOSITORY TYPE CODE TESTS RESULT OUT OF REFERENCE UNITS RANGE LAB L501.080 70-110 mg/dL High BEDSIDE GLU 193 Result Comment: MANAGEMENT OF PATIENT CARE PER NURSING PROTOCOL Performed By: #### L501.080 #### [facility] Point of Care [address] [place] [address] CHEST 1 VIEW Observed: 07/09/2018 Status: F Source: HA[place]INS (PORTABLE) 11:01 AM [facility] REPOSITORY [facility] Imaging Services [address] [place] [address] Chest 1 View (Portable) MR#: [id number] Acct: [id number] Name: JENNIFER CANTRELL Rep #: [id number] : 1945 F 72 From: David Santamaria MD PCP: Ajith Sainz DO Status: ADM IN Study: Chest 1 View (Portable) Date of Exam: 07/09/18 Exam# [id number] Ordering Dr: John Berger DO STUDY: X-RAY CHEST REASON FOR EXAM: Female, 72 years old. Pleural effusion. TECHNIQUE: Single AP portable view of the chest. COMPARISON: Comparison is made with prior study dated July 06, 2018. FINDINGS: EKG electrodes are seen. Stable bilateral pleural effusions with underlying bibasilar atelectasis and/or infiltration. This is superimposed on CHF. There is mild cardiac enlargement. Left-sided dual-chamber pacemaker is seen. The patient is status post mitral valve replacement. A clip is seen in the region of the left atrial appendage. Normal mediastinum and billy. Normal visualized pulmonary arteries. There is atherosclerotic calcification of the aortic arch with tortuosity. Spinal fusion in the lower thoracic spine. There is degenerative osteoarthritis of the bilateral shoulders. There is no demonstrated abnormality of the visualized soft tissue structures of the upper abdomen. RAD/Chest 1 View (Portable) IMPRESSION: Stable bilateral pleural effusions with bibasilar atelectasis and/or infiltrate and CHF. Electronically Signed: David Santamaria MD at 13:04 EST Tel [phone], Service support , CC: John Berger D.O.; Ajith Sainz DO Mushroom Grower: Signed BEDSIDE GLUCOSE Collected: 07/09/2018 Status: F Source: MEMO 6:53 AM [facility] REPOSITORY TYPE CODE TESTS RESULT OUT OF REFERENCE UNITS RANGE LAB L501.080 70-110 mg/dL High BEDSIDE GLU 244 Result Comment: MANAGEMENT OF PATIENT CARE PER NURSING PROTOCOL Performed By: #### L501.080 #### [facility] Point [place] [address] CBC W/DIFF, AUTOMATED Collected: 07/09/2018 Status: F Source: [place] 5:45 AM [facility] REPOSITORY TYPE CODE TESTS RESULT OUT OF RANGE REFERENCE UNITS LAB L100.1000 4.4-11.0 K/mm3 Normal WBC 7.8 LAB L100.1200 4.2-5.4 M/mm3 Low RBC 3.72 LAB L100.1300 12.0-15.0 g/dl Low HGB 11.4 LAB L100.1400 37-47 % Low HCT 36.6 LAB L100.1500 81-99 fL Normal MCV 98.4 LAB L100.1600 27.0-32.0 pg Normal MCH 30.6 LAB L100.1700 32-36 g/gl Low MCHC 31.1 LAB L100.1810 11.6-14.6 % High RDW CV 17.6 LAB L100.1820 35.1-43.9 fl High RDW SD 59.0 LAB L100.1900 150-450 K/mm3 Low PLT 114 LAB L100.2000 6.2-12.0 fl Normal MPV 10.4 LAB L100.2100 47-70 % High NEUT% 81.3 LAB L100.2200 19-41 % Low LY% 7.7 LAB L100.2300 0-10 % Normal MONO% 8.5 LAB L100.2400 0-5 % Normal EO% 0.5 LAB L100.2500 0-1 % High BASO% 1.2 LAB L100.2550 0.0-0.9 % Normal IM GRAN % 0.800 Result Comment: IG% - Immature Granulocytes (promyelocytes, myelocytes and metamyelocytes) > 1% indicates that a LEFT SHIFT is Present. LAB L100.2620 2.0-7.7 X10 3/uL Normal Absolute Neut 6.3 LAB L100.2720 0.83-4.51 X10 3/ul Low Absolute Lymph 0.60 LAB L100.4500 Normal SMEAR COMMENT SCANNED Performed By: #### L100.0100 #### [facility] [address] [place], [address] BASIC METABOLIC Collected: 07/09/2018 Status: F Source: [facility] PROFILE ([facility]) 5:45 AM [facility] REPOSITORY TYPE CODE TESTS RESULT OUT OF RANGE REFERENCE UNITS LAB L501.0100 74-106 mg/dL High GLU 247 Result Comment: Glucose result greater than or equal to 200 mg/dL suggests DIABETES MELLITUS per A.D.A. criteria. Please note revised GLUCOSE reference range effective 2017. LAB L501.1000 7-18 mg/dL Normal BUN 16 LAB L501.1100 0.55-1.02 mg/dL High CREAT,SERUM 1.29 Result Comment: The validity of the calculated GFR AND GFRAA in patients over 70 years has not been determined. Clinical correlation is essential. LAB L501.1110 >60 mL/min Low EST GFR 43 Result Comment: Non- GFR Calc LAB L501.1115 >60 mL/min Low EST GFR - AA 52 Result Comment: GFR Calc LAB L501.1255 ml/min Normal Estimated CRCL 27.48 LAB L501.1300 10-20 RATIO Normal BUN/CRE 12.4 LAB L501.2200 8.5-10 mg/dL Low .1 CA 7.8 LAB L501.5300 136-14 mmol/L Normal 5 NA 139 LAB L501.5600 3.5-5. mmol/L Normal 1 K 3.7 LAB L501.5900 98-107 mmol/L Normal CL 101 LAB L501.6100 21.0-3 mmol/L Normal 2.0 CO2 28.0 LAB L501.6200 5-15 Normal GAP 10 Performed By: #### L500.2500 #### [facility] [address] [facility] [place], [address] BNP,B-TYPE NATRIURETIC Collected: 07/09/2018 Status: F Source: MEMO PEPTIDE 5:45 AM [facility] REPOSITORY TYPE CODE TESTS RESULT OUT OF RANGE REFERENCE UNITS LAB L503.6620 0-100 pg/mL High B-TYPE 901.1 FAUSTINA PEP Performed By: #### L503.6620 #### [facility] [address] [facility] [place], [address] BEDSIDE GLUCOSE Collected: 07/08/2018 Status: F Source: MEMO 9:32 PM [facility] REPOSITORY TYPE CODE TESTS RESULT OUT OF REFERENCE UNITS RANGE LAB L501.080 70-110 mg/dL High BEDSIDE GLU 307 Result Comment: MANAGEMENT OF PATIENT CARE PER NURSING PROTOCOL Performed By: #### L501.080 #### [facility] Point of Care [address] [place] [address] BEDSIDE GLUCOSE Collected: 07/08/2018 Status: F Source: MEMO 4:18 PM [facility] REPOSITORY TYPE CODE TESTS RESULT OUT OF REFERENCE UNITS RANGE LAB L501.080 70-110 mg/dL High BEDSIDE GLU 145 Result Comment: MANAGEMENT OF PATIENT CARE PER NURSING PROTOCOL Performed By: #### L501.080 #### [facility] Point of Care [address] [place] [address] BEDSIDE GLUCOSE Collected: 07/08/2018 Status: F Source: MEMO 11:09 AM [facility] REPOSITORY TYPE CODE TESTS RESULT OUT OF REFERENCE UNITS RANGE LAB L501.080 70-110 mg/dL High BEDSIDE GLU 158 Result Comment: MANAGEMENT OF PATIENT CARE PER NURSING PROTOCOL Performed By: #### L501.080 #### [facility] Point of Care [address] [place] [address] BEDSIDE GLUCOSE Collected: 07/08/2018 Status: F Source: MEMO 6:48 AM [facility] REPOSITORY TYPE CODE TESTS RESULT OUT OF REFERENCE UNITS RANGE LAB L501.080 70-110 mg/dL High BEDSIDE GLU 144 Result Comment: MANAGEMENT OF PATIENT CARE PER NURSING PROTOCOL Performed By: #### L501.080 #### [facility] Point of Care [address] [place] [address] BASIC METABOLIC Collected: 07/08/2018 Status: F Source: MEMO PROFILE (BMP) 5:25 AM [facility] REPOSITORY TYPE CODE TESTS RESULT OUT OF RANGE REFERENCE UNITS LAB L501.0100 74-106 mg/dL High GLU 144 Result Comment: Fasting Glucose result greater than or equal to 126 mg/dL suggests DIABETES MELLITUS per A.D.A. criteria. Please note revised GLUCOSE reference range effective 2017. LAB L501.1000 7-18 mg/dL Normal BUN 16 LAB L501.1100 0.55-1.02 mg/dL High CREAT,SERUM 1.06 Result Comment: The validity of the calculated GFR AND GFRAA in patients over 70 years has not been determined. Clinical correlation is essential. LAB L501.1110 >60 mL/min Low EST GFR 54 Result Comment: Non- GFR Calc LAB L501.1115 >60 mL/min Normal EST GFR - AA 65 Result Comment: GFR Calc LAB L501.1255 ml/min Normal Estimated CRCL 33.45 LAB L501.1300 10-20 RATIO Normal BUN/CRE 15.1 LAB L501.2200 8.5-10 mg/dL Low .1 CA 7.9 LAB L501.5300 136-14 mmol/L Normal 5 NA 142 LAB L501.5600 3.5-5. mmol/L Normal 1 K 3.7 LAB L501.5900 98-107 mmol/L Normal CL 103 LAB L501.6100 21.0-3 mmol/L Normal 2.0 CO2 28.0 LAB L501.6200 5-15 Normal GAP 11 Performed By: #### L500.2500 #### [facility] [address] [place], [address] BEDSIDE GLUCOSE Collected: 07/07/2018 Status: F Source: MEMO 10:26 PM [facility] REPOSITORY TYPE CODE TESTS RESULT OUT OF REFERENCE UNITS RANGE LAB L501.080 70-110 mg/dL High BEDSIDE GLU 189 Result Comment: MANAGEMENT OF PATIENT CARE PER NURSING PROTOCOL Performed By: #### L501.080 #### [facility] Point of Care [address] [place] [address] BEDSIDE GLUCOSE Collected: 07/07/2018 Status: F Source: MEMO 4:37 PM [facility] REPOSITORY TYPE CODE TESTS RESULT OUT OF REFERENCE UNITS RANGE LAB L501.080 70-110 mg/dL High BEDSIDE GLU 142 Result Comment: MANAGEMENT OF PATIENT CARE PER NURSING PROTOCOL Performed By: #### L501.080 #### [facility] Point of Care [address] [place] [address] BEDSIDE GLUCOSE Collected: 07/07/2018 Status: F Source: MEMO 11:39 AM [facility] REPOSITORY TYPE CODE TESTS RESULT OUT OF REFERENCE UNITS RANGE LAB L501.080 70-110 mg/dL High BEDSIDE GLU 138 Result Comment: MANAGEMENT OF PATIENT CARE PER NURSING PROTOCOL Performed By: #### L501.080 #### [facility] Point of Care [address] [place] [address] BEDSIDE GLUCOSE Collected: 07/07/2018 Status: F Source: MEMO 6:51 AM [facility] REPOSITORY TYPE CODE TESTS RESULT OUT OF REFERENCE UNITS RANGE LAB L501.080 70-110 mg/dL High BEDSIDE GLU 170 Result Comment: MANAGEMENT OF PATIENT CARE PER NURSING PROTOCOL Performed By: #### L501.080 #### [facility] Point [place] [address] CBC W/DIFF, AUTOMATED Collected: 07/07/2018 Status: F Source: MEMO 5:30 AM [facility] REPOSITORY TYPE CODE TESTS RESULT OUT OF RANGE REFERENCE UNITS LAB L100.1000 4.4-11.0 K/mm3 Normal WBC 8.9 LAB L100.1200 4.2-5.4 M/mm3 Low RBC 3.32 LAB L100.1300 12.0-15.0 g/dl Low HGB 9.9 LAB L100.1400 37-47 % Low HCT 31.3 LAB L100.1500 81-99 fL Normal MCV 94.3 LAB L100.1600 27.0-32.0 pg Normal MCH 29.8 LAB L100.1700 32-36 g/gl Low MCHC 31.6 LAB L100.1810 11.6-14.6 % High RDW CV 17.5 LAB L100.1820 35.1-43.9 fl High RDW SD 60.7 LAB L100.1900 150-450 K/mm3 Low PLT 103 LAB L100.2000 6.2-12.0 fl Normal MPV 9.8 LAB L100.2100 47-70 % High NEUT% 85.8 LAB L100.2200 19-41 % Low LY% 6.7 LAB L100.2300 0-10 % Normal MONO% 6.2 LAB L100.2400 0-5 % Normal EO% 0.7 LAB L100.2500 0-1 % Normal BASO% 0.4 LAB L100.2550 0.0-0.9 % Normal IM GRAN % 0.200 Result Comment: IG% - Immature Granulocytes (promyelocytes, myelocytes and metamyelocytes) > 1% indicates that a LEFT SHIFT is Present. LAB L100.2620 2.0-7.7 X10 3/uL Normal Absolute Neut 7.6 LAB L100.2720 0.83-4.51 X10 3/ul Low Absolute Lymph 0.60 LAB L100.4500 Normal SMEAR COMMENT SCANNED LAB L100.5500 ADEQ Normal PLT EST MOD DEC LAB L100.7300 Normal ANISO 1+ LAB L100.7400 Normal POIK RARE Performed By: #### L100.0100 #### [facility] [address] [place], [address] BASIC METABOLIC Collected: 07/07/2018 Status: F Source: HAWKINS PROFILE (BMP) 5:30 AM [facility] REPOSITORY TYPE CODE TESTS RESULT OUT OF RANGE REFERENCE UNITS LAB L501.0100 74-106 mg/dL High GLU 123 Result Comment: Fasting Glucose result from 100 to 125 mg/dL suggests IMPAIRED HOMEOSTASIS per A.D.A. criteria. Please note revised GLUCOSE reference range effective 2017. LAB L501.1000 7-18 mg/dL Normal BUN 17 LAB L501.1100 0.55-1.02 mg/dL Normal CREAT,SERUM 0.99 Result Comment: The validity of the calculated GFR AND GFRAA in patients over 70 years has not been determined. Clinical correlation is essential. LAB L501.1110 >60 mL/min Low EST GFR 58 Result Comment: Non- GFR Calc LAB L501.1115 >60 mL/min Normal EST GFR - AA 70 Result Comment: GFR Calc LAB L501.1255 ml/min Normal Estimated CRCL 35.81 LAB L501.1300 10-20 RATIO Normal BUN/CRE 17.2 LAB L501.2200 8.5-10 mg/dL Low .1 CA 7.8 LAB L501.5300 136-14 mmol/L Normal 5 NA 142 LAB L501.5600 3.5-5. mmol/L Low 1 K 3.4 LAB L501.5900 98-107 mmol/L Normal CL 103 LAB L501.6100 21.0-3 mmol/L Normal 2.0 CO2 29.0 LAB L501.6200 5-15 Normal GAP 10 Performed By: #### L500.2500 #### [facility] [address] [place], [place], [address] BEDSIDE GLUCOSE Collected: 07/06/2018 Status: F Source: [place]INS 9:58 PM [facility] REPOSITORY TYPE CODE TESTS RESULT OUT OF REFERENCE UNITS RANGE LAB L501.080 70-110 mg/dL High BEDSIDE GLU 188 Result Comment: MANAGEMENT OF PATIENT CARE PER NURSING PROTOCOL Performed By: #### L501.080 #### [facility] Point of Care [address] [place] [address] BEDSIDE GLUCOSE Collected: 07/06/2018 Status: F Source: [place] 4:36 PM [facility] REPOSITORY TYPE CODE TESTS RESULT OUT OF REFERENCE UNITS RANGE LAB L501.080 70-110 mg/dL High BEDSIDE GLU 147 Result Comment: MANAGEMENT OF PATIENT CARE PER NURSING PROTOCOL Performed By: #### L501.080 #### [facility] Point of Care [address] [place] [address] BEDSIDE GLUCOSE Collected: 07/06/2018 Status: F Source: [place]WKINS 11:23 AM [facility] REPOSITORY TYPE CODE TESTS RESULT OUT OF REFERENCE UNITS RANGE LAB L501.080 70-110 mg/dL High BEDSIDE GLU 257 Result Comment: MANAGEMENT OF PATIENT CARE PER NURSING PROTOCOL Performed By: #### L501.080 #### [facility] Point of Care [address] [place] [address] CHEST PA AND LATERAL Observed: 07/06/2018 Status: F Source: [place]INS 11:07 AM [facility] REPOSITORY [facility] Imaging Services [address] [place] [address] Chest PA and Lateral MR#: [id number] Acct: [id number] Name: TAMIAJENNIFER oJni Rep #: [id number] : 1945 F 72 From: Susan Murphy MD PCP: Ajith Sainz DO Status: ADM IN Study: Chest PA and Lateral Date of Exam: 07/06/18 Exam# [id number] Ordering Dr: Benjie Guzman MD STUDY: X-RAY CHEST REASON FOR EXAM: Female, 72 years old. CHF sepsis TECHNIQUE: PA and lateral views of the chest. COMPARISON: July 04, 2018 chest x-ray FINDINGS: A large bilateral effusions similar to prior study. There is a left-sided pacemaker leads overlying the heart. # There is moderate cardiac enlargement. There is a visualized cardiac valve prosthesis. Normal mediastinum and billy. Normal visualized pulmonary arteries. There is atherosclerotic calcification of the aortic arch with tortuosity. There are diffuse degenerative changes of the visualized thoracic spine. Normal visualized ribs, clavicles, and shoulders. There is no demonstrated abnormality of the visualized soft tissue structures of the upper abdomen. RAD/Chest PA and Lateral IMPRESSION: Large bilateral effusions atelectasis persistent since prior study pacemaker status post sternotomy. Electronically Signed: Susan Murphy MD at 18:16 EST Tel , Service support , CC: Benjie Guzman MD; Ajith Sainz DO Mushroom Grower: Signed BEDSIDE GLUCOSE Collected: 07/06/2018 Status: F Source: [place] 6:44 AM [facility] REPOSITORY TYPE CODE TESTS RESULT OUT OF REFERENCE UNITS RANGE LAB L501.080 70-110 mg/dL High BEDSIDE GLU 169 Result Comment: MANAGEMENT OF PATIENT CARE PER NURSING PROTOCOL Performed By: #### L501.080 #### [facility] Point of Care [address] [place], [place] [address] BASIC METABOLIC Collected: 07/06/2018 Status: F Source: HAWKINS PROFILE (BMP) 6:03 AM [facility] REPOSITORY TYPE CODE TESTS RESULT OUT OF RANGE REFERENCE UNITS LAB L501.0100 74-106 mg/dL High GLU 170 Result Comment: Fasting Glucose result greater than or equal to 126 mg/dL suggests DIABETES MELLITUS per A.D.A. criteria. Please note revised GLUCOSE reference range effective 2017. LAB L501.1000 7-18 mg/dL High BUN 20 LAB L501.1100 0.55-1.02 mg/dL High CREAT,SERUM 1.11 Result Comment: The validity of the calculated GFR AND GFRAA in patients over 70 years has not been determined. Clinical correlation is essential. LAB L501.1110 >60 mL/min Low EST GFR 51 Result Comment: Non- GFR Calc LAB L501.1115 >60 mL/min Normal EST GFR - AA 62 Result Comment: GFR Calc LAB L501.1255 ml/min Normal Estimated CRCL 31.94 LAB L501.1300 10-20 RATIO Normal BUN/CRE 18.0 LAB L501.2200 8.5-10 mg/dL Low .1 CA 7.9 LAB L501.5300 136-14 mmol/L Normal 5 NA 140 LAB L501.5600 3.5-5. mmol/L Normal 1 K 3.7 LAB L501.5900 98-107 mmol/L Normal CL 102 LAB L501.6100 21.0-3 mmol/L Normal 2.0 CO2 29.0 LAB L501.6200 5-15 Normal GAP 9 Performed By: #### L500.2500 #### [facility] [address] [place], [place], [id number] CBC W/DIFF, AUTOMATED Collected: 07/06/2018 Status: F Source: [place]INS 6:03 AM [facility] REPOSITORY TYPE CODE TESTS RESULT OUT OF RANGE REFERENCE UNITS LAB L100.1000 4.4-11.0 K/mm3 Normal WBC 9.6 LAB L100.1200 4.2-5.4 M/mm3 Low RBC 3.29 LAB L100.1300 12.0-15.0 g/dl Low HGB 9.8 LAB L100.1400 37-47 % Low HCT 31.0 LAB L100.1500 81-99 fL Normal MCV 94.2 LAB L100.1600 27.0-32.0 pg Normal MCH 29.8 LAB L100.1700 32-36 g/gl Low MCHC 31.6 LAB L100.1810 11.6-14.6 % High RDW CV 17.3 LAB L100.1820 35.1-43.9 fl High RDW SD 57.5 LAB L100.1900 150-450 K/mm3 Low PLT 113 LAB L100.2000 6.2-12.0 fl Normal MPV 9.9 LAB L100.2100 47-70 % High NEUT% 87.0 LAB L100.2200 19-41 % Low LY% 6.2 LAB L100.2300 0-10 % Normal MONO% 5.5 LAB L100.2400 0-5 % Normal EO% 0.6 LAB L100.2500 0-1 % Normal BASO% 0.4 LAB L100.2550 0.0-0.9 % Normal IM GRAN % 0.300 Result Comment: IG% - Immature Granulocytes (promyelocytes, myelocytes and metamyelocytes) > 1% indicates that a LEFT SHIFT is Present. LAB L100.2620 2.0-7.7 X10 3/uL High Absolute Neut 8.3 LAB L100.2720 0.83-4.51 X10 3/ul Low Absolute Lymph 0.59 Performed By: #### L100.0100 #### [facility] [address] [facility] [address] BEDSIDE GLUCOSE Collected: 07/05/2018 Status: F Source: HAWKINS 9:23 PM [facility] REPOSITORY TYPE CODE TESTS RESULT OUT OF REFERENCE UNITS RANGE LAB L501.080 70-110 mg/dL High BEDSIDE GLU 253 Result Comment: MANAGEMENT OF PATIENT CARE PER NURSING PROTOCOL Performed By: #### L501.080 #### [facility] Point of Care [address] [place] [address] BEDSIDE GLUCOSE Collected: 07/05/2018 Status: F Source: [place]INS 5:23 PM [facility] REPOSITORY TYPE CODE TESTS RESULT OUT OF REFERENCE UNITS RANGE LAB L501.080 70-110 mg/dL High BEDSIDE GLU 181 Result Comment: MANAGEMENT OF PATIENT CARE PER NURSING PROTOCOL Performed By: #### L501.080 #### [facility] Point of Care [address] [place] [address] CONSULTATION Observed: 07/05/2018 Status: F Source: HAWKINS 3:02 PM [facility] REPOSITORY [facility] Medical Records Department [address] [place] [id number] Consultation 07/05/18 1448 MR#: [id number] Acct: [id number] Name: JENNIFER CANTRELL Joni Rep #: [id number] : 1945 72 From: Alex Domínguez MD PCP: Ajith Sainz DO Status: ADM IN Y Location: [facility] DEM066-1 Problem List (1) CHF (congestive heart failure) Status: Acute Qualifiers: Heart failure type: diastolic Heart failure chronicity: acute on chronic Qualified Code(s): I50.33 - Acute on chronic diastolic (congestive) heart failure Reason for Consult Date of Consultation: 07/05/18 History of Present Illness: The patient is a 72 year old F with PMH as below who presents from her halfway with a 1 day history of shortness of breath. She is a very poor historian and most of the history is obtained from the family. They are not quite sure what medication she takes, however they do state that she had a CABG done in November of this year at [facility] though they are not sure how many vessels. Also at the time the doctor stated that they want to put in a pacemaker but they did not want to do right away. She also has a history of A. fib, and they stated that she had a history of heart failure that they are not sure what kind. He also stated that on her previous discharge from [facility] in May after a UTI with sepsis, that a lot of her medications were discontinued because of her kidney function, though not sure which medications were discontinued. In the ER today she was found to be tachycardic, hypoxic necessitating BiPAP, chest x-ray demonstrated pleural effusions and she was given 20 mg of IV Lasix. She was also found to have what appears to be a UTI based on UA, she was given a dose of IV Rocephin down in the ER. Minimally elevated troponin was also noted. [] Past Medical History Allergies/Adverse Reactions: Allergies simvastatin [From Zocor] Allergy (Verified 07/04/18 09:48) Unknown Home Medications: Ambulatory Orders Medication Instructions Recorded Acetaminophen 650 mg PO Q4H PRN PRN 07/04/18 Apixaban [Eliquis] 2.5 mg PO BID 07/04/18 Bisacodyl 10 mg RC DAILY PRN PRN 07/04/18 Past Medical History (Chronic Problems): Chronic Problems CAD (coronary artery disease) (Chronic) Surgical History: cholecystectomy, coronary bypass surgery, - - Mitral valve replacement, and permanent pacemaker. - *Family History Maternal History Items: Diabetes, Heart Disease, Hypertension Paternal History Items: Cancer, Diabetes, Heart Disease, Hypertension, Stroke Smoking Status: Former smoker Tobacco Use: Cigarettes Alcohol: None Drugs: None Objective: Vital Signs Temp Pulse Resp BP Pulse Ox 98.1 F 111 H 23 H 122/80 H 100 07/05/18 13:00 07/05/18 13:00 07/05/18 13:00 07/05/18 13:00 07/05/18 13:00 Oxygen Flow Rate (L/min) 4 Oxygen Delivery Method Nasal Cannula Weight: 53.4 kg Body Mass Index (BMI) 24.0 Intake and Output for Last 24 Hours Intake Total 120 / 120 309 / 309 Output Total 750 / 750 450 / 450 Balance -630 / -630 -141 / -141 General: Oriented x 3, - - Chronically ill looking. HEENT: EOMI Neck: Supple Chest Wall: Midline Sternotomy Incision Lungs: - - Severly diminished air entry bilatterally. Cardiovascular: Regular Rhythm, No Rubs Murmur Murmur: Grade 2/6, [place] Vascular: No Carotid Bruits Abdomen: Soft, Non Tender Extremities: Abnormal Capillary Refill, Trace RLE Edema, Trace LLE Edema Neurological: No Focal Motor or Sensory Deficit Psych/Mental Status: Appropriate 07/04/18 09:45: Triglycerides 81, Cholesterol 176, LDL Cholesterol 91, VLDL Cholesterol 16, HDL Cholesterol 69 07/04/18 18:40: Troponin I 0.123 H 07/04/18 21:15: Troponin I 0.141 H 07/05/18 00:25: Troponin I 0.097 H 07/05/18 05:55: Sodium 140, Potassium 4.0, Chloride 103, Carbon Dioxide 28.0, Anion Gap 9, BUN 24 H, Creatinine 1.03 H, Est GFR (MDRD) Af Amer 67, Est GFR (MDRD) Non-Af 56 L, BUN/Creatinine Ratio 23.3 H, Glucose 92, Calcium 7.6 L 07/05/18 05:55: WBC 8.2, RBC 2.49 L, Hgb 7.4 L, Hct 24.5 L, MCV 98.4, MCH 29.7, MCHC 30.2 L, RDW 17.7 H, RDW Differential 59.8 H, Plt Count 111 L, MPV 10.1, Immature Gran % (Auto) 0.200, Neut % (Auto) 85.0 H, Lymph % (Auto) 7.8 L, Power % (Auto) 5.5, Eos % (Auto) 1.3, Baso % (Auto) 0.2, Absolute Neuts (auto) 7.0, Total Counted Not Reportable Rhythm: Sinus, Paced QRS EKG: Sinus, Paced QRS. ECHO: P. Assessment/Plan Acutely decompensated chronic CHF, Preserved EF, class 2-3. Minimally elevated Trop., Type 2 LA. Normally functioning Permanent pacer, DDD. Mild mitral stenosis, partially opening prosthetic valve, followed up at [place], although the family wishes not to return there again. Suggest continuing mild diuresis, optimizing medications. Sepsis, being addressed by the atending. Will FU at AM. 07/05/18 1502 <Electronically signed by Alex Domínguez MD> Date Alex Domínguez MD Cosigner Signature (if applicable): Date CC: Ajith Sainz DO; Alex Domínguez MD Signed Observed: 07/05/2018 Status: C Source: [place]INS STOOL OCCULT BLOOD 2:40 PM [facility] IFOB REPOSITORY STOB iFOB Occult Blood Negative Performed By: #### M100.7900 #### [facility] [address] [place], [place], [address] BEDSIDE GLUCOSE Collected: 07/05/2018 Status: F Source: MEMO 10:59 AM [facility] REPOSITORY TYPE CODE TESTS RESULT OUT OF REFERENCE UNITS RANGE LAB L501.080 70-110 mg/dL High BEDSIDE GLU 111 Result Comment: MANAGEMENT OF PATIENT CARE PER NURSING PROTOCOL Performed By: #### L501.080 #### [facility] Point of Care [address] [place], [place] [address] TYPE AND SCREEN Collected: 07/05/2018 Status: F Source: MEMO 8:40 AM [facility] REPOSITORY Order Comment: CMV NEG? N Number of units to transfuse: 1 Is pt's HR > 100 bpm? Y Reason for Ordering Blood: Acute Are the blood/blood products to be transfused? Y Is the patient having/had surgery? N Give When? When Ready Irradiated? N Leukodepleted? Y TYPE CODE TESTS RESULT OUT OF RANGE REFERENCE UNITS LAB B10.0800 O Normal BLOOD TYPE GEL NEGATIVE LAB B100.4000 Normal Antibody NEGATIVE Screen Performed By: #### B101.7450 #### [facility] [address] [place], [address] RC Collected: 07/05/2018 Status: F Source: [place] 8:40 AM [facility] REPOSITORY TYPE CODE TESTS RESULT OUT OF REFERENCE UNITS RANGE LAB U100.0000 [id number] TRANSFUSED PRODUCT: T AND S with Crossmatch, Red Cells COUNT: 1 Performed By: #### U100.0000 #### Non-[facility] - refer to report for specific site BEDSIDE GLUCOSE Collected: 07/05/2018 Status: F Source: [place] 6:40 AM [facility] REPOSITORY TYPE CODE TESTS RESULT OUT OF RANGE REFERENCE UNITS LAB L501.080 70-110 mg/dL Normal BEDSIDE GLU 98 Result Comment: MANAGEMENT OF PATIENT CARE PER NURSING PROTOCOL Performed By: #### L501.080 #### [facility] Point of Care [address] [place] [address] BASIC METABOLIC Collected: 07/05/2018 Status: F Source: [place] PROFILE (BMP) 5:55 AM [facility] [place] REPOSITORY TYPE CODE TESTS RESULT OUT OF RANGE REFERENCE UNITS LAB L501.0100 74-106 mg/dL Normal GLU 92 Result Comment: Please note revised GLUCOSE reference range effective 2017. LAB L501.1000 7-18 mg/dL High BUN 24 LAB L501.1100 0.55-1.02 mg/dL High CREAT,SERUM 1.03 Result Comment: The validity of the calculated GFR AND GFRAA in patients over 70 years has not been determined. Clinical correlation is essential. LAB L501.1110 >60 mL/min Low EST GFR 56 Result Comment: Non- GFR Calc LAB L501.1115 >60 mL/min Normal EST GFR - AA 67 Result Comment: GFR Calc LAB L501.1255 ml/min Normal Estimated CRCL 34.42 LAB L501.1300 10-20 RATIO High BUN/CRE 23.3 LAB L501.2200 8.5-10 mg/dL Low .1 CA 7.6 LAB L501.5300 136-14 mmol/L Normal 5 NA 140 LAB L501.5600 3.5-5. mmol/L Normal 1 K 4.0 LAB L501.5900 98-107 mmol/L Normal CL 103 LAB L501.6100 21.0-3 mmol/L Normal 2.0 CO2 28.0 LAB L501.6200 5-15 Normal GAP 9 Performed By: #### L500.2500 #### [facility] [address], [address] CBC W/DIFF, AUTOMATED Collected: 07/05/2018 Status: F Source: [place] 5:55 AM [facility] [place] REPOSITORY TYPE CODE TESTS RESULT OUT OF RANGE REFERENCE UNITS LAB L100.1000 4.4-11.0 K/mm3 Normal WBC 8.2 LAB L100.1200 4.2-5.4 M/mm3 Low RBC 2.49 LAB L100.1300 12.0-15.0 g/dl Low HGB 7.4 LAB L100.1400 37-47 % Low HCT 24.5 LAB L100.1500 81-99 fL Normal MCV 98.4 LAB L100.1600 27.0-32.0 pg Normal MCH 29.7 LAB L100.1700 32-36 g/gl Low MCHC 30.2 LAB L100.1810 11.6-14.6 % High RDW CV 17.7 LAB L100.1820 35.1-43.9 fl High RDW SD 59.8 LAB L100.1900 150-450 K/mm3 Low PLT 111 LAB L100.2000 6.2-12.0 fl Normal MPV 10.1 LAB L100.2100 47-70 % High NEUT% 85.0 LAB L100.2200 19-41 % Low LY% 7.8 LAB L100.2300 0-10 % Normal MONO% 5.5 LAB L100.2400 0-5 % Normal EO% 1.3 LAB L100.2500 0-1 % Normal BASO% 0.2 LAB L100.2550 0.0-0.9 % Normal IM GRAN % 0.200 Result Comment: IG% - Immature Granulocytes (promyelocytes, myelocytes and metamyelocytes) > 1% indicates that a LEFT SHIFT is Present. LAB L100.2620 2.0-7.7 X10 3/uL Normal Absolute Neut 7.0 LAB L100.2720 0.83-4.51 X10 3/ul Low Absolute Lymph 0.64 Performed By: #### L100.0100 #### [facility] [address] [place], [address] TROPONIN-I Collected: 07/05/2018 Status: F Source: [place] 12:25 AM [facility] [place] REPOSITORY Order Comment: 'TROP' Serial specimen #1, #2 or #3: 3 TYPE CODE TESTS RESULT OUT OF RANGE REFERENCE UNITS LAB L501.4010 <0.045 ng/mL High 0.097 TROPONIN-I Result Comment: TROPONIN-I EXPECTED VALUES <0.045 Negative 0.045 - 0.590 Consistent with Cardiac Damage > OR = 0.600 Critical Value Not every elevated troponin is indicative of LA. These values should be used with clinical judgement in examining the patient's clinical picture for diagnosis. To establish a diagnosis of LA versus myocardial injury, there must be a demonstrated rise and/or fall in the troponin values, in addition to ischemic symptoms, EKG changes, new regional wall motion abnormality, and/or angiographical evidence. PLEASE NOTE: REFERENCE RANGES EDITED 17 Performed By: #### L501.4010 #### [facility] [address] [place], [address] BEDSIDE GLUCOSE Collected: 07/04/2018 Status: F Source: [place] 10:16 PM [facility] [place] REPOSITORY TYPE CODE TESTS RESULT OUT OF REFERENCE UNITS RANGE LAB L501.080 70-110 mg/dL High BEDSIDE GLU 116 Result Comment: MANAGEMENT OF PATIENT CARE PER NURSING PROTOCOL Performed By: #### L501.080 #### [facility] Point of Care [address] [place], [place] [address] HISTORY AND PHYSICAL Observed: 07/04/2018 Status: F Source: [place] EXAM 5:22 PM [facility] [place] REPOSITORY [facility] Medical Records Department [address] [place] [address] History and Physical 07/04/18 1552 MR#: [id number] Acct: [id number] Name: JENNIFER CANTRELL Rep #: [id number] : 1945 72 From: Benjie Guzman MD PCP: Ajith Sainz DO Status: ADM IN Y Location: [place] [address] Problem List (1) CAD (coronary artery disease) Status: Chronic (2) UTI (urinary tract infection) Status: Acute (3) CHF (congestive heart failure) Status: Acute History of Present Illness Date of Admission: 07/04/18 Chief Complaint: SOB The patient is a 72 year old F with PMH as below who presents from her halfway with a 1 day history of shortness of breath. She is a very poor historian and most of the history is obtained from the family. They are not quite sure what medication she takes, however they do state that she had a CABG done in November of this year at [facility] though they are not sure how many vessels. Also at the time the doctor stated that they want to put in a pacemaker but they did not want to do right away. She also has a history of A. fib, and they stated that she had a history of heart failure that they are not sure what kind. He also stated that on her previous discharge from [facility] in May after a UTI with sepsis, that a lot of her medications were discontinued because of her kidney function, though not sure which medications were discontinued. In the ER today she was found to be tachycardic, hypoxic necessitating BiPAP, chest x-ray demonstrated pleural effusions and she was given 20 mg of IV Lasix. She was also found to have what appears to be a UTI based on UA, she was given a dose of IV Rocephin down in the ER. Past Medical History Past Medical History (Chronic Problems): Chronic Problems CAD (coronary artery disease) (Chronic) Allergies simvastatin [From Zocor] Allergy (Verified 07/04/18 09:48) Unknown Home Medications: Ambulatory Orders Medication Instructions Recorded Acetaminophen 650 mg PO Q4H PRN PRN 07/04/18 Apixaban [Eliquis] 2.5 mg PO BID 07/04/18 Bisacodyl 10 mg RC DAILY PRN PRN 07/04/18 Surgical History: cholecystectomy, coronary bypass surgery Smoking Status: Former smoker Tobacco Use: Cigarettes Alcohol: None Drugs: None - *Family History Maternal History Items: Diabetes, Heart Disease, Hypertension Paternal History Items: Cancer, Diabetes, Heart Disease, Hypertension, Stroke Review of Systems Constitutional: Denies: Chills, Fever, Weight Change HEENT: Denies: Head Aches, Sinus Congestion, Sinus Drainage Cardiovascular: Denies: Chest Pain, Edema, Palpitations Respiratory: Reports: Shortness of Breath, Shortness of breath at rest. Denies: Cough, Sputum production Gastrointestinal: Denies: Abdominal Pain, Nausea, Vomiting Genitourinary: Denies: Dysuria Musculoskeletal: Denies: Joint Pain, Joint Tenderness Skin: Denies: Rash, Wounds Neurological: Denies: Numbness, Tingling, Focal weakness Psychiatric: Denies: Anxiety, Depression Hematologic/ Lymphatic: Denies: Easy Bruising, Easy Bleeding VTE Information - Inpt Only VTE Present on Admission: No Patient Problems: Active and Suspected Problems UTI (urinary tract infection) (Acute) CHF (congestive heart failure) (Acute) - Physical Exam General: Alert, Oriented x3, Cooperative, - - on BiPAP seems a little slow HEENT: Atraumatic, PERRLA, EOMI, Normocephalic Oral: Dry Mucosa Neck: Supple, No JVD Lungs: Clear to auscultation, Normal air movement, No rhonchi, No wheeze, No rales, Diminished Cardiovascular: Regular rate, Regular Rhythm, Normal S1, Normal S2, No murmurs Abdomen: Soft, Non Tender, Non-Distended, No Hepato-splenomegaly Extremities: No edema, Capillary Refill Less than 3 Seconds Skin: No rashes, No breakdown Neurological: Neuro grossly intact, Sensory exam intact to light touch and pain Psych/Mental Status: Normal Affect, Appropriate Vital Signs Temp Pulse Resp BP Pulse Ox 98.5 F 105 H 15 115/84 H 100 07/04/18 13:00 07/04/18 15:43 07/04/18 15:43 07/04/18 15:00 07/04/18 15:43 Oxygen Delivery Method Bi-pap Weight: 123 lb 0.287 oz Body Mass Index (BMI) 24.0 Laboratory Tests Past 24 Hrs WBC 11.4 H RBC 2.82 L Hgb 8.2 L Hct 26.8 L MCV 95.0 MCH 29.1 WBC 10.7 RBC 2.85 L Hgb 8.3 L Hct 27.1 L MCV 95.1 MCH 29.1 Assessment/Plan All Active Problems UTI (urinary tract infection) (Acute) CHF (congestive heart failure) (Acute) 1. CHF exacerbation of unknown type/UTI/acute hypoxic respiratory failure/metabolic encephalopathy/elevated troponin -Based on pleural effusions on the chest x-ray, as well as a BNP of 643 -There is no comparison or medical systems since most of her cardiac care has been taken care of at [facility] -She was given 20 mg IV Lasix in the ER, will monitor for improvement and reassess dose tomorrow -Continue with Rocephin IV for UTI. -The family she is not normally confused and this tired, likely combination of CHF, UTI, hypoxia -Continue with BiPAP for now -PT/OT -Elevated troponin could be due to worsening renal function, or exacerbation of CHF. Either way we will obtain serial enzymes -Echo pending 2. A. fib/CAD status post CABG/AK I -Currently on Eliquis, which we will continue -She is not on any medications that would be typical for somebody in A. fib and who has coronary artery disease -We will obtain lipid panel in the morning -Per the family they state that some of her medications were discontinued because of her kidney function, they are not sure as to which medications -When she is a diabetic, and has CAD she would need to be on a statin as well as an BAILEE inhibitor 3. DM 2 -Came from the halfway with a sliding scale insulin -Family is unsure of his which she is on at home -We will order sliding scale and Accu-Cheks AC at bedtime 4. GERD -Stable -Continue with PPI DVT: Eliquis Code Visit Inpatient E AND M: [id number] Init Hosp L3 07/04/18 1722 <Electronically signed by Benjie Guzman MD> Date Benjie Guzman MD Cosigner Signature: Date (if applicable) CC: Benjie Guzman MD; Ajtih Sainz Signed ECHOCARDIOGRAM COMPLETE Observed: 07/04/2018 Status: F Source: [place] 4:39 PM [facility] [place] REPOSITORY [facility] Cardiovascular Services [address] [place] [address] Echo Complete 07/04/18 1314 MR#: [id number] Acct: [id number] Name: JENNIFER CANTRELL Rep #: [id number] : 1945 72 From: Bk Castillo MD Attending Dr: Benjie Guzman MD Status: ADM IN Ordering Dr: Benjie Guzman MD Date: 07/04/18 Location: [facility] Sex: F C Admitted: 07/04/18 Reason For Study: CHF Procedure This was a 2D Doppler, Color Flow transthoracic echocardiogram. The study was technically difficult. Exam performed portable in patient room. Left Ventricle Normal LV size. Left ventricular systolic function is normal. The estimated ejection fraction is 65 %. Unable to assess diastolic dysfunction. No regional wall motion abnormalities noted. Right Ventricle Normal RV size. ICD or pacer leads identified within the right ventricle. Normal systolic function. Atria The left atrium is moderately enlarged. Normal right atrium. ICD or pacer leads identified within the right atrium. No doppler evidence for ASD. Mitral Valve Moderate mitral valve stenosis. Stabel appearing prosthetic mitral valve apparatus. Trivial transvalvular insufficiency of the mitral valve. Tricuspid Valve Normal tricuspid valve. Moderate (2+) tricuspid valve insufficiency. Right ventricular systolic pressure estimated to be 47 mmHg. Aortic Valve Trisinus/trileaflet aortic valve. Mild diffuse aortic valve thickening. Severe focal aortic valve calcification. Mild aortic stenosis. Trivial aortic valve insufficiency. Pulmonic Valve The pulmonic valve is not well visualized. Great Vessels Normal sized aortic root. Pericardium/Pleural No pericardial effusion. Echolucency c/w a pleural effusion. MMode/2D Measurements AND Calculations LVIDd: 2.4 cm IVSd: 0.95 cm LVOT diam: 1.8 cm LVIDs: 1.6 cm LVPWd: 0.86 cm LVOT area: 2.6 cm2 RVDd: 3.2 cm FS: 31.8 % Ao root diam: 2.5 cm LAV(MOD-sp4): 57.2 ml LA A4 area: 20.9 cm2 LA dimension(2D): 4.7 cm RA A4 area: 11.6 cm2 Doppler Measurements AND Calculations MV V2 max: 206.5 cm/sec Ao V2 max: 175.0 cm/sec LV V1 max: 119.0 cm/sec MV max P.0 mmHg Ao max P.3 mmHg LV V1 max P.7 mmHg MV V2 mean: 133.5 cm/sec Ao V2 mean: 117.0 cm/sec LV V1 mean P.1 mmHg MV mean P.5 mmHg Ao mean P.3 mmHg LV V1 mean: 83.9 cm/sec MV V2 VTI: 37.9 cm Ao V2 VTI: 22.8 cm LV V1 VTI: 18.8 cm MVA(VTI): 1.3 cm2 EMIR(I,D): 2.2 cm2 EMIR(V,D): 1.8 cm2 SV(LVOT): 49.3 ml TR max norma: 330.0 cm/sec TR max P.7 mmHg Interpretation Summary The study was technically difficult. Left ventricular systolic function is normal. The estimated ejection fraction is 65 %. The left atrium is moderately enlarged. Stabel appearing prosthetic mitral valve apparatus. Moderate mitral valve stenosis. Trivial transvalvular insufficiency of the mitral valve. Moderate (2+) tricuspid valve insufficiency. Mild aortic stenosis. Trivial aortic valve insufficiency. Echolucency c/w a pleural effusion. Right ventricular systolic pressure estimated to be 47 mmHg. Unable to assess diastolic dysfunction. Comment: 2D echocardiographic images demonstrate echocardiograhic findings c/w a prosthetic mitral valve apparatus, as well as, findings potentially c/w mitral annular calcification, calcification of the submitral valve apparatus, and thickening / calcification / partial restriction of the mitral valve leaflets. Ordering Physician: Benjie Guzman Referring Physician: AJITH SAINZ Performed By: Gabriela Smalls, RDCS, RVT 07/04/181637 Date Bk Castillo MD CC: Benjie Guzman MD; Ajith Sainz DO Date Dictated: 07/04/18 1314 Date Transcribed: 07/04/181637 Mushroom Grower: Yazan CBC W/DIFF, AUTOMATED Collected: 07/04/2018 Status: F Source: [place] 1:05 PM [facility] [place] REPOSITORY TYPE CODE TESTS RESULT OUT OF RANGE REFERENCE UNITS LAB L100.1000 4.4-11.0 K/mm3 Normal WBC 10.7 LAB L100.1200 4.2-5.4 M/mm3 Low RBC 2.85 LAB L100.1300 12.0-15.0 g/dl Low HGB 8.3 LAB L100.1400 37-47 % Low HCT 27.1 LAB L100.1500 81-99 fL Normal MCV 95.1 LAB L100.1600 27.0-32.0 pg Normal MCH 29.1 LAB L100.1700 32-36 g/gl Low MCHC 30.6 LAB L100.1810 11.6-14.6 % High RDW CV 18.1 LAB L100.1820 35.1-43.9 fl High RDW SD 63.0 LAB L100.1900 150-450 K/mm3 Low PLT 109 LAB L100.2000 6.2-12.0 fl Normal MPV 9.5 LAB L100.2100 47-70 % High NEUT% 88.4 LAB L100.2200 19-41 % Low LY% 6.1 LAB L100.2300 0-10 % Normal MONO% 4.6 LAB L100.2400 0-5 % Normal EO% 0.3 LAB L100.2500 0-1 % Normal BASO% 0.3 LAB L100.2550 0.0-0.9 % Normal IM GRAN % 0.300 Result Comment: IG% - Immature Granulocytes (promyelocytes, myelocytes and metamyelocytes) > 1% indicates that a LEFT SHIFT is Present. LAB L100.2620 2.0-7.7 X10 3/uL High Absolute Neut 9.4 LAB L100.2720 0.83-4.51 X10 3/ul Low Absolute Lymph 0.65 Performed By: #### L100.0100 #### [facility] [address] [place], [address] EMERGENCY DEPARTMENT Observed: 07/04/2018 Status: F Source: [place] SUMMARY 11:19 AM [facility] [place] REPOSITORY [facility] Medical Records Department [address] [place] [address] Emergency Department Summary 07/04/18 0947 MR#: [id number] Acct: [id number] Name: JENNIFER CANTRELL Rep #: [id number] : 1945 72 From: Donte Tran MD PCP: Ajith Sainz DO Status: REG ER - ER Visit Summary Date of Service: 07/04/18 Chief Complaint: Shortness of breath and hypoxia History of Present Illness: The patient is a 72 F who arrived by ambulance for shortness of breath. She is arousable with repeated stimulation. She does answers questions appropriately. She acknowledged that she does not wish CPR or intubation, invasive ventilation. She was spoken to regarding BiPAP and was agreeable. She recently had a pacemaker placed. According to son she had her mitral valve replaced November 2017. Her history is limited. She does acknowledge to shortness of breath, slight cough and no chest pain. Per records that accompanied her she has a history of congestive heart failure. She denied fever or chills. She denied muscle aches or joint aches. She does admit to weakness. There is no history of vomiting or diarrhea. She denies urologic symptoms. Even though patient is not alert when stimulated and ask questions she does answer questions appropriately and believes she has the capacity to make a decision regarding intubation and CPR. Patient entered the halfway July 02, 2018 from home. Review of paperwork from nursing facility indicates patient has history of coronary disease, CHF, COPD, type 1 diabetes and hypercholesterolemia. Furthermore, patient is on an anticoagulant, Eliquis. Physical Examination: Vital signs remarkable blood pressure 126/73, heart rate of 112 and appears to be wide complex on the monitor. Mechanism uncertain. Respiratory 31. Pulse ox was low on nonrebreather and was placed on BiPAP. CO2 was in the low 30s. She is afebrile. HEENT exam is marked for pale conjunctival and dry mucosa. There is a well-healed mid sternotomy scar noted. There is a dressing over the recently placed pacemaker. There is no evidence of cellulitis. Lungs reveal diminished breath sounds bilaterally with inspiratory rales and expiratory wheezing. Heart is rapid. Abdomen soft nontender. No palpable cell mass abdominal bruit. There is bilateral pedal edema. Not alert but oriented to name, place and month. She moves all extremities. There is no clonus or Babinski sign. No cranial nerve deficit appreciated. Finger to nose to finger was not attempted. Test Results: White count 11.4 thousand 91% segs no bands. Hemoglobin 8.2. Electronic panel reveals slight elevation in BUN/creatinine of 25 and 1.24. Urinalysis is consistent with infection. Blood gas reveals a respiratory alkalosis with increased AA gradient. Emergency Department Course and Treatment: Patient was placed on BiPAP with marked improvement of oxygenation. ABG was ordered. Chest x-ray was ordered to determine etiology of her hypoxia and determine if this is secondary to CHF versus pneumonia. Lactate was obtained and may be elevated secondary to hypoxia. CBC was obtained to assess white count as well as H AND H since she appears pale. Basic medical panel was obtained to assess electrolytes and renal function. With recent procedure wanting to entertain possibility of pulmonary embolus. If the x-ray does not reveal congestive heart failure or pneumonia she will require a CTA if renal function is sufficient. UA and culture was ordered after I was informed by nursing staff that urine appears turbid. Since patient is clinically fluid overloaded 20 of Lasix was ordered. Nitroglycerin drip was also ordered for preload reduction. Most recent blood pressure is low at 98/82. The nitroglycerin drip was held. Treatment Plan: Treat for urinary tract infection, exacerbation of CHF and transfuse if needed. Disposition: Admit to stepdown versus ICU Impression: 1. Respiratory failure with hypoxia 2. Exacerbation of congestive heart failure with bilateral pleural effusion 3. Urinary tract infection, sepsis 4. Elevated troponin suspect secondary to CHF 5. Renal insufficiency 6. History of coronary disease 7. High risk medication, Eliquis This note was generated with [employer] dictation software. It may contain incorrect words, spelling, and punctuation that were not noted in review of the chart prior to signing ED Disposition - Plan for ED Patient: Chief Complaint: Shortness of Breath Referrals: Patsy Cabrera [ALLIED HEALTH PROFESSIONAL] - What to do if you have Problems For any increased pain, shortness of breath, bleeding, nausea or vomiting, chest pain, or any unexpected problems, contact your Primary Care Provider. Call [facility] ([phone]) or report to the closest Emergency Room. Call 911 if necessary. 07/04/18 1119 <Electronically signed by Donte Tran MD> Date Donte Tran MD Cosigner Signature (If Indicated): Date CC: Ajith Sainz DO BLOOD GASES BY CPS Collected: 07/04/2018 Status: F Source: [place] 10:42 AM [facility] [place] REPOSITORY TYPE CODE TESTS RESULT OUT OF RANGE REFERENCE UNITS LAB L9000.9990 Normal BLD GAS TYPE ART LAB L9001.1000 Normal SITE R Radial LAB L9001.1010 Normal CONSUELO TEST NA LAB L9001.1050 O2 Normal Delivery Dev Bi / C PAP LAB L9001.1070 RR Normal 12 LAB L9001.1074 Normal FI02 80 LAB L9001.1090 Normal EPAP 10 LAB L9001.1104 Normal Results To ED LAB L9001.1105 Normal Time Given 1040 LAB L9001.1110 7.35-7.45 High pH - I-STAT 7.56 LAB L9001.1210 35-45 mmHg Low pCO2 - ISTAT 30.6 LAB L9001.1310 75-100 mmHG High PO2 I-STAT 146 LAB L9001.2300 22-26 mmol/L High HCO3 ISTAT 27.6 LAB L9001.2400 -2 to +2 mmol/L High BE ISTAT 5 LAB L9001.2415 mmol/L Normal TOTAL CO2 28 ISTAT LAB L9001.2425 95-99 % High SO2 ISTAT 100 Performed By: #### L9000.0800 #### [facility] Point of Care [address] [place], [place] [id number] PROTHROMBIN TIME W/INR Collected: 07/04/2018 Status: F Source: [place] 10:35 AM [facility] [place] REPOSITORY TYPE CODE TESTS RESULT OUT OF RANGE REFERENCE UNITS LAB L300.4150 11.7-14.9 SECONDS Normal PROTIME 14.9 LAB L300.4200 Normal INR 1.2 Performed By: #### L300.3900 #### [facility] [address] [facility] [place], [place], [address] URINALYSIS, COMPLETE Collected: 07/04/2018 Status: F Source: [place] 10:20 AM [facility] [place] REPOSITORY Order Comment: How was Urine Obtained? CATHETER SPECIMEN TYPE CODE TESTS RESULT OUT OF RANGE REFERENCE UNITS LAB L400.3000 Yellow COLOR Normal Yellow LAB L400.3050 Clear Normal CLARITY Cloudy LAB L400.3200 Normal mg/dl Normal GLUCOSE, UR Normal LAB L400.3300 Negative mg/dL Normal BILIRUBIN URINE Negative LAB L400.3400 Negative mg/dl High 5 KETONE UR LAB L400.3465 1.002-1.030 Normal SP.GR. DIPSTX 1.015 LAB L400.3550 5.0 - 8.0 pH UR Normal 6.0 LAB L400.3600 Negative mg/dl High PROT 15 DIPSTX LAB L400.3700 Normal mg/dl Normal UROBILI Normal LAB L400.3750 Negative High NITRITE UR Positive LAB L400.3780 Negative /ul High 25 OCCULT BLOOD-UR LAB L400.3800 Negative /ul High LEUK ESTERASE 500 LAB L400.4050 0-5 /hpf WBC Normal >100 SEEN LAB L400.4100 0-5 /hpf 0 Normal RBC-UA SEEN LAB L400.4150 5-10 /hpf SQUAM 0 Normal EPI SEEN LAB L400.4300 None Seen /hpf 1+ Normal BACTERIA LAB L400.4350 <or=2+ /hpf 0 Normal MUCUS, URINE SEEN Performed By: #### L400.0001 #### [facility] [address] [place], [address] Observed: 07/04/2018 Status: F Source: [place] CULTURE, URINE 10:20 AM [facility] [place] REPOSITORY Urine Culture ORGANISM 1: Pseudomonas aeroginosa [place] Count 50,000-80,000 Pseudomonas aeroginosa: REACTION Aztreonam $$$ 5 R Pseudomonas aeroginosa: REACTION Amikacin $ 8 S Cefepime $ >=64 R Ceftazidime *NF >=64 R Ciprofloxacin $ <=0.25 S Gentamicin $ 8 I Imipenem *NF 1 S Levofloxacin $ 2 S Meropenem $ 1 S Tobramycin $ <=1 S (NF) indicates non-formulary drug at [facility]. Approval by Infectious Disease Specialist required before non-formulary drugs may be ordered and/or dispensed. Performed By: #### M100.0650 #### [facility] [address] [place], [place], [address] CBC W/DIFF, AUTOMATED Collected: 07/04/2018 Status: F Source: [place] 9:45 AM [facility] [place] REPOSITORY TYPE CODE TESTS RESULT OUT OF RANGE REFERENCE UNITS LAB L100.1000 4.4-11.0 K/mm3 High WBC 11.4 LAB L100.1200 4.2-5.4 M/mm3 Low RBC 2.82 LAB L100.1300 12.0-15.0 g/dl Low HGB 8.2 LAB L100.1400 37-47 % Low HCT 26.8 LAB L100.1500 81-99 fL Normal MCV 95.0 LAB L100.1600 27.0-32.0 pg Normal MCH 29.1 LAB L100.1700 32-36 g/gl Low MCHC 30.6 LAB L100.1810 11.6-14.6 % High RDW CV 18.1 LAB L100.1820 35.1-43.9 fl High RDW SD 63.4 LAB L100.1900 150-450 K/mm3 Low PLT 112 LAB L100.2000 6.2-12.0 fl Normal MPV 9.8 LAB L100.2100 47-70 % High NEUT% 90.6 LAB L100.2200 19-41 % Low LY% 4.4 LAB L100.2300 0-10 % Normal MONO% 3.9 LAB L100.2400 0-5 % Normal EO% 0.5 LAB L100.2500 0-1 % Normal BASO% 0.3 LAB L100.2550 0.0-0.9 % Normal IM GRAN % 0.300 Result Comment: IG% - Immature Granulocytes (promyelocytes, myelocytes and metamyelocytes) > 1% indicates that a LEFT SHIFT is Present. LAB L100.2620 2.0-7.7 X10 3/uL High Absolute Neut 10.3 LAB L100.2720 0.83-4.51 X10 3/ul Low Absolute Lymph 0.50 Performed By: #### L100.0100 #### [facility] [address] [place] [place], [address] BASIC METABOLIC Collected: 07/04/2018 Status: F Source: [place] PROFILE (BMP) 9:45 AM [facility] REPOSITORY TYPE CODE TESTS RESULT OUT OF RANGE REFERENCE UNITS LAB L501.0100 74-106 mg/dL High GLU 118 Result Comment: Fasting Glucose result from 100 to 125 mg/dL suggests IMPAIRED HOMEOSTASIS per A.D.A. criteria. Please note revised GLUCOSE reference range effective 2017. LAB L501.1000 7-18 mg/dL High BUN 25 LAB L501.1100 0.55-1.02 mg/dL High CREAT,SERUM 1.24 Result Comment: The validity of the calculated GFR AND GFRAA in patients over 70 years has not been determined. Clinical correlation is essential. LAB L501.1110 >60 mL/min Low EST GFR 45 Result Comment: Non- GFR Calc LAB L501.1115 >60 mL/min Low EST GFR - AA 54 Result Comment: GFR Calc LAB L501.1255 ml/min Normal Estimated CRCL 28.59 LAB L501.1300 10-20 RATIO High BUN/CRE 20.2 LAB L501.2200 8.5-10 mg/dL Low .1 CA 7.8 LAB L501.5300 136-14 mmol/L Normal 5 NA 140 LAB L501.5600 3.5-5. mmol/L Normal 1 K 4.4 LAB L501.5900 98-107 mmol/L Normal CL 100 LAB L501.6100 21.0-3 mmol/L Normal 2.0 CO2 31.0 LAB L501.6200 5-15 Normal GAP 9 Performed By: #### L500.2500, L501.4010 #### [facility] [place], [address] TROPONIN-I Collected: 07/04/2018 Status: F Source: MEMO 9:45 AM [facility] REPOSITORY TYPE CODE TESTS RESULT OUT OF RANGE REFERENCE UNITS LAB L501.4010 <0.045 ng/mL High 0.141 TROPONIN-I Result Comment: TROPONIN-I EXPECTED VALUES <0.045 Negative 0.045 - 0.590 Consistent with Cardiac Damage > OR = 0.600 Critical Value Not every elevated troponin is indicative of LA. These values should be used with clinical judgement in examining the patient's clinical picture for diagnosis. To establish a diagnosis of LA versus myocardial injury, there must be a demonstrated rise and/or fall in the troponin values, in addition to ischemic symptoms, EKG changes, new regional wall motion abnormality, and/or angiographical evidence. PLEASE NOTE: REFERENCE RANGES EDITED 17 Performed By: #### L500.2500, L501.4010 #### [facility] [address] [place], [address] LACTIC ACID Collected: 07/04/2018 Status: F Source: MEMO 9:45 AM [facility] REPOSITORY Order Comment: Yes/No query for Sepsis Lactate Rule Y TYPE CODE TESTS RESULT OUT OF RANGE REFERENCE UNITS LAB L503.6005 0.4-2.0 mmol/L Normal LACTIC ACID 1.2 Performed By: #### L503.6005 #### [facility] [address] [place], [address] BNP,B-TYPE NATRIURETIC Collected: 07/04/2018 Status: F Source: [place] PEPTIDE 9:45 AM [facility] REPOSITORY TYPE CODE TESTS RESULT OUT OF RANGE REFERENCE UNITS LAB L503.6620 0-100 pg/mL High B-TYPE 634.9 FAUSTINA PEP Performed By: #### L503.6620 #### [facility] [address] [place], [address] LIPID PROFILE Collected: 07/04/2018 Status: F Source: MEMO 9:45 AM [facility] REPOSITORY TYPE CODE TESTS RESULT OUT OF RANGE REFERENCE UNITS LAB L501.4900 200 mg/dL Normal CHOL 176 Result Comment: <200 mg/dL Desirable 200-240 mg/dL Borderline >240 mg/dL High Risk LAB L501.5000 mg/dL Normal TRIG 81 Result Comment: The drugs N-Acetylcysteine and Metamizole may falsely depress this assay. Serum Triglycerides Reference Interval Normal <150 mg/dL Borderline high 150 - 199 mg/dL High 200 - 499 mg/dL Very High > or = 500 mg/dL LAB L501.6400 mg/dL Normal HDL 69 Result Comment: The drugs N-Acetylcysteine and Metamizole may falsely depress this assay. Reference Range HDL <40 mg/dL Low HDL Cholesterol HDL >or= 60 mg/dL High HDL Cholesterol LAB L501.6500 0-130 mg/dL Normal LDL 91 LAB L501.6600 5-40 mg/dL Normal VLDL 16 Performed By: #### L500.4100 #### [facility] [address] [place], [address] CHEST 1 VIEW Observed: 07/04/2018 Status: F Source: [place] (PORTABLE) 9:39 AM [facility] REPOSITORY [facility] Imaging Services [address] [place] [address] Chest 1 View (Portable) MR#: [id number] Acct: [id number] Name: JENNIFER CANTRELL Rep #: [id number] : 1945 F 72 From: Guerrero Ochoa MD PCP: Ajith Sainz DO Status: REG ER Study: Chest 1 View (Portable) Date of Exam: 07/04/18 Exam# [id number] Ordering Dr: Donte Tran MD STUDY: X-RAY CHEST REASON FOR EXAM: Female, 72 years old. TECHNIQUE: COMPARISON: None. FINDINGS: The heart is not enlarged. Bilateral pleural effusion noted more so on the right side. Underlying infiltrate at either base cannot be ruled out. The apices are clear but there is mild pulmonary vascular congestion. A permanent pacemaker is seen with 2 leads in position. There is left aterial appendage closure device. Multiple metallic stitches noted along the sternum from previous surgery. Spinal fusion noted in the lower lower thoracic spine RAD/Chest 1 View (Portable) IMPRESSION: Bilateral pleural effusion more on the right side underlying infiltrate cannot be excluded Electronically Signed: Guerrero Ochoa, at 10:44 EST Tel , Service support , CC: Ajith Sainz DO; Donte Tran MD Mushroom Grower: Signed .GFR Collected: 06/29/2018 Status: F Source: [place] [employer] 6:15 AM [facility] REPOSITORY TYPE CODE TESTS RESULT OUT OF REFERENCE UNITS RANGE LAB GFRAA(LOINC ml/min/1.73 ) sqm GFR >60 Lao Result Comment: GFR Population mean for , Non- Americans Ages 20-29 = 116 mL/min/1.73 sq.m. Ages 30-39 = 107 mL/min/1.73 sq.m. Ages 40-49 = 99 mL/min/1.73 sq.m. Ages 50-59 = 93 mL/min/1.73 sq.m. Ages 60-69 = 85 mL/min/1.73 sq.m. Ages 70+ = 75 mL/min/1.73 sq.m. Chronic Kidney Disease: Less than 60 mL/min/1.73 square meters End Stage Renal Disease: Less than 15 mL/min/1.73 square meters LAB GFRNO(LOINC) ml/min/1.73sqm GFR Non- 54 Result Comment: GFR Population mean for , Non- Americans Ages 20-29 = 116 mL/min/1.73 sq.m. Ages 30-39 = 107 mL/min/1.73 sq.m. Ages 40-49 = 99 mL/min/1.73 sq.m. Ages 50-59 = 93 mL/min/1.73 sq.m. Ages 60-69 = 85 mL/min/1.73 sq.m. Ages 70+ = 75 mL/min/1.73 sq.m. Chronic Kidney Disease: Less than 60 mL/min/1.73 square meters End Stage Renal Disease: Less than 15 mL/min/1.73 square meters Performed By: #### CBC, ADIFF, ANEU, GFR, BMP, PRALB #### [place] [address] BMP Collected: 06/29/2018 Status: F Source: [facility] 6:15 AM [facility] REPOSITORY TYPE CODE TESTS RESULT OUT OF RANGE REFERENCE UNITS LAB GLU(LOINC) 82-115 mg/dL Glucose Level 88 LAB NA(LOINC) 136-145 mEq/L Sodium Level 139 LAB K(LOINC) 3.5-5.0 mEq/L Low Potassium Level 3.4 LAB CL(LOINC) 98-110 mEq/L Chloride 98 LAB CO2(LOINC) 22-32 mEq/L CO2 32 LAB EBAL(LOINC 4.0-15.0 mEq/L ) Electrolyte Balance 9.0 LAB BUN(LOINC) 8.0-22.0 mg/dL BUN 15.0 LAB CRE(LOINC) 0.50-1.20 mg/dL Creatinine Lvl (s) 1.01 LAB BC(LOINC) 10.0-22.0 ratio BUN/Creatinine 14.9 Ratio LAB CA(LOINC) 8.4-10.1 mg/dL Calcium Lvl Abnormal 6.7 Alert Performed By: #### CBC, ADIFF, ANEU, GFR, BMP, PRALB #### [place] [address] PRALB Collected: 06/29/2018 Status: F Source: [place] [employer] 6:15 AM [facility] REPOSITORY TYPE CODE TESTS RESULT OUT OF REFERENCE UNITS RANGE LAB PRALB(LOIN 18.0-38.0 mg/dL C) Low Prealbumin 9.6 Performed By: #### CBC, ADIFF, ANEU, GFR, BMP, PRALB #### [place] [address] CBC Collected: 06/29/2018 Status: F Source: [facility] 4:43 AM [facility] REPOSITORY TYPE CODE TESTS RESULT OUT OF REFERENCE UNITS RANGE LAB WBC(LOINC) 4.50-10.80 10 3/mcL WBC 10.80 LAB RBCCT(LOINC 4.10-5.30 10 6/mcL ) Low RBC 3.17 LAB HGB(LOINC) 12.0-16.0 G/dL Low Hgb 9.4 LAB HCT(LOINC) 34.0-46.0 % Low Hct 28.9 LAB MCV(LOINC) 80.0-99.0 fL MCV 91.0 LAB MCH(LOINC) 27.0-33.0 pg MCH 29.8 LAB MCHC(LOINC) 32.0-36.0 G/dL MCHC 32.7 LAB RDW(LOINC) 11.5-15.5 % High RDW 18.0 LAB PLT(LOINC) 150-450 10 3/mcL Low Platelet 131 LAB MPV(LOINC) 6.6-10.5 fL MPV 8.3 Performed By: #### CBC, ADIFF, ANEU, GFR, BMP, PRALB #### [place] [address] .AUTO DIFF Collected: 06/29/2018 Status: F Source: [employer] 4:43 AM [facility] REPOSITORY TYPE CODE TESTS RESULT OUT OF REFERENCE UNITS RANGE LAB EUGENIE(LOINC) 50.0-75.0 % High Neutrophil % 85.0 LAB LYM(LOINC) 20.0-40.0 % Low Lymphocyte % 5.6 LAB MON(LOINC) 2.0-13.0 % Monocyte % 6.7 LAB EO(LOINC) 0.0-6.0 % Eosinophil % 1.5 LAB BAS(LOINC) 0.0-2.5 % Basophil % 1.2 LAB ABLYM(LOIN 0.90-4.32 10 3/mcL C) Low Lymphocyte, 0.60 Absolute LAB NICK(LOINC 0.09-1.40 10 3/mcL ) Monocyte, 0.70 Absolute LAB AEOS(LOINC 0.00-0.65 10 3/mcL ) Eosinophil, 0.20 Absolute LAB ABAS(LOINC 0.00-0.27 10 3/mcL ) Basophil, 0.10 Absolute Performed By: #### CBC, ADIFF, ANEU, GFR, BMP, PRALB #### [place] [id number] .NEUABS Collected: 06/29/2018 Status: F Source: [place] [employer] 4:43 AM [facility] REPOSITORY TYPE CODE TESTS RESULT OUT OF REFERENCE UNITS RANGE LAB ANEU(LOINC) 2.25-8.10 10 3/mcL High Neutrophil, 9.20 Absolute Performed By: #### CBC, ADIFF, ANEU, GFR, BMP, PRALB #### [place] [address] XR CHEST 2 VIEWS Observed: 06/28/2018 Status: F Source: [place] [employer] 8:15 AM [facility] REPOSITORY ORIGINAL Chest 2 views HISTORY: ICD insertion COMPARISON: 06/27/2018 Pacemaker unit overlies the LEFT axilla and adjacent LEFT upper lobe. Wires are at the RIGHT atrium and the RIGHT ventricular apex. A LEFT atrial appendage clip is present, and there is a prosthetic stefanie ral valve present. On the lateral view, there are small to moderate bilateral pleural effusions present, with some adjacent atelectasis. The upper lungs are clear. Overall, the findings are not significantly different than on the prior study. IMPRESSION: Stable small to moderate pleural effusions with adjacent atelectasis. Interpreted By: Quintin Sprague MD Preliminary Report By: Quintin Sprague MD Electronically Signed By: Quintin Sprague MD Dictated Date: 06/28/2018 8:16:51 AM Prelim Date: 06/28/2018 8:16:51 AM Sign Date: 06/28/2018 8:17:40 AM PRALB Collected: 06/28/2018 Status: F Source: [facility] 3:53 AM [facility] REPOSITORY TYPE CODE TESTS RESULT OUT OF REFERENCE UNITS RANGE LAB PRALB(LOIN 18.0-38.0 mg/dL C) Low Prealbumin 9.6 Performed By: #### PRALB #### [place] [address] XR CHEST 1 VIEW Observed: 06/27/2018 Status: F Source: [facility] 12:12 PM [facility] REPOSITORY ORIGINAL XR CHEST 1 VIEW, 06/27/2018 1:06 PM INDICATION: Evaluate for pneumothorax/lead position post pacer/ICD insertion COMPARISON: 2 days previously FINDINGS: There are sternotomy wires and an appendage clip. There is a LEFT pacemaker. There is hazy opacification in both lung bases, decreasing towards the apices. There is no significant pneumothorax . The pulmonary vasculature is normal in caliber. IMPRESSION: Interval pacemaker placement. Mild increase in effusions and/or atelectasis. Interpreted By: Telly Ugarte MD Preliminary Report By: Telly Ugarte MD Electronically Signed By: Telly Ugarte MD Dictated Date: 06/27/2018 1:09:19 PM Prelim Date: 06/27/2018 1:09:19 PM Sign Date: 06/27/2018 1:10:09 PM CBC Collected: 06/27/2018 Status: F Source: [facility] 8:51 AM [facility] REPOSITORY TYPE CODE TESTS RESULT OUT OF REFERENCE UNITS RANGE LAB WBC(LOINC) 4.50-10.80 10 3/mcL WBC 8.40 LAB RBCCT(LOINC 4.10-5.30 10 6/mcL ) Low RBC 2.99 LAB HGB(LOINC) 12.0-16.0 G/dL Low Hgb 8.9 LAB HCT(LOINC) 34.0-46.0 % Low Hct 27.4 LAB MCV(LOINC) 80.0-99.0 fL MCV 91.8 LAB MCH(LOINC) 27.0-33.0 pg MCH 29.9 LAB MCHC(LOINC) 32.0-36.0 G/dL MCHC 32.5 LAB RDW(LOINC) 11.5-15.5 % High RDW 17.9 LAB PLT(LOINC) 150-450 10 3/mcL Low Platelet 138 LAB MPV(LOINC) 6.6-10.5 fL MPV 8.0 Performed By: #### CBC, ADIFF, ANEU, GFR, BMP #### [address] [address] .AUTO DIFF Collected: 06/27/2018 Status: F Source: [facility] 8:51 AM [facility] REPOSITORY TYPE CODE TESTS RESULT OUT OF REFERENCE UNITS RANGE LAB EUGENIE(LOINC) 50.0-75.0 % High Neutrophil % 86.2 LAB LYM(LOINC) 20.0-40.0 % Low Lymphocyte % 6.3 LAB MON(LOINC) 2.0-13.0 % Monocyte % 5.5 LAB EO(LOINC) 0.0-6.0 % Eosinophil % 1.5 LAB BAS(LOINC) 0.0-2.5 % Basophil % 0.5 LAB ABLYM(LOIN 0.90-4.32 10 3/mcL C) Low Lymphocyte, 0.50 Absolute LAB NICK(LOINC 0.09-1.40 10 3/mcL ) Monocyte, 0.50 Absolute LAB AEOS(LOINC 0.00-0.65 10 3/mcL ) Eosinophil, 0.10 Absolute LAB ABAS(LOINC 0.00-0.27 10 3/mcL ) Basophil, 0.00 Absolute Performed By: #### CBC, ADIFF, ANEU, GFR, BMP #### [address] [address] .NEUABS Collected: 06/27/2018 Status: F Source: [facility] 8:51 AM [facility] REPOSITORY TYPE CODE TESTS RESULT OUT OF REFERENCE UNITS RANGE LAB ANEU(LOINC) 2.25-8.10 10 3/mcL Neutrophil, 7.20 Absolute Performed By: #### CBC, ADIFF, ANEU, GFR, BMP #### [address] [address] .GFR Collected: 06/27/2018 Status: F Source: [facility] 8:51 AM [facility] REPOSITORY TYPE CODE TESTS RESULT OUT OF REFERENCE UNITS RANGE LAB GFRAA(LOINC ml/min/1.73 ) sqm GFR >60 Lao Result Comment: GFR Population mean for , Non- Americans Ages 20-29 = 116 mL/min/1.73 sq.m. Ages 30-39 = 107 mL/min/1.73 sq.m. Ages 40-49 = 99 mL/min/1.73 sq.m. Ages 50-59 = 93 mL/min/1.73 sq.m. Ages 60-69 = 85 mL/min/1.73 sq.m. Ages 70+ = 75 mL/min/1.73 sq.m. Chronic Kidney Disease: Less than 60 mL/min/1.73 square meters End Stage Renal Disease: Less than 15 mL/min/1.73 square meters LAB GFRNO(LOINC) ml/min/1.73sqm GFR Non- 58 Result Comment: GFR Population mean for , Non- Americans Ages 20-29 = 116 mL/min/1.73 sq.m. Ages 30-39 = 107 mL/min/1.73 sq.m. Ages 40-49 = 99 mL/min/1.73 sq.m. Ages 50-59 = 93 mL/min/1.73 sq.m. Ages 60-69 = 85 mL/min/1.73 sq.m. Ages 70+ = 75 mL/min/1.73 sq.m. Chronic Kidney Disease: Less than 60 mL/min/1.73 square meters End Stage Renal Disease: Less than 15 mL/min/1.73 square meters Performed By: #### CBC, ADIFF, ANEU, GFR, BMP #### [address] [address] BMP Collected: 06/27/2018 Status: F Source: [facility] 8:51 AM [facility] REPOSITORY TYPE CODE TESTS RESULT OUT OF RANGE REFERENCE UNITS LAB GLU(LOINC) 82-115 mg/dL Glucose Level 109 LAB NA(LOINC) 136-145 mEq/L Sodium Level 140 LAB K(LOINC) 3.5-5.0 mEq/L Potassium Level 3.6 LAB CL(LOINC) 98-110 mEq/L Chloride 100 LAB CO2(LOINC) 22-32 mEq/L High CO2 33 LAB EBAL(LOINC 4.0-15.0 mEq/L ) Electrolyte Balance 7.0 LAB BUN(LOINC) 8.0-22.0 mg/dL BUN 17.0 LAB CRE(LOINC) 0.50-1.20 mg/dL Creatinine Lvl (s) 0.95 LAB BC(LOINC) 10.0-22.0 ratio BUN/Creatinine 17.9 Ratio LAB CA(LOINC) 8.4-10.1 mg/dL Calcium Lvl Abnormal 6.6 Alert Performed By: #### CBC, ADIFF, ANEU, GFR, BMP #### [place] [address] XR CHEST 1 VIEW Observed: 06/25/2018 Status: F Source: [facility] 11:32 AM [facility] REPOSITORY ORIGINAL XR CHEST 1 VIEW AP upright 11:27 AM CLINICAL STATEMENT: post thoracentesis evaluate for pneumothorax , post RIGHT thoracentesis COMPARISON: Same day 11:09 AM FINDINGS: There is moderate decrease in previously seen RIGHT pleural effusion. Small bilateral effusions are present and there is underlying interstitial edema pattern. No pneumothorax. IMPRESSION: No pneumothorax after thoracentesis. Residual bilateral pleural effusions and interstitial edema pattern. Interpreted By: Julian Mckeon MD Preliminary Report By: Julian Mckeon MD Electronically Signed By: Julian Mckeon MD Dictated Date: 06/25/2018 2:51:59 PM Prelim Date: 06/25/2018 2:51:59 PM Sign Date: 06/25/2018 2:52:42 PM XR CHEST 1 VIEW Observed: 06/25/2018 Status: F Source: [facility] 11:02 AM [facility] REPOSITORY ORIGINAL XR CHEST 1 VIEW AP upright CLINICAL STATEMENT: post thoracentesis evaluate for pneumothorax , status post LEFT thoracentesis COMPARISON: 06/13/2018 FINDINGS: Stable heart and mediastinum. No pneumothorax. There is markedly decreased LEFT pleural effusion. RIGHT pleural effusion and small LEFT effusion and interstitial edema pattern persists. IMPRESSION: No LEFT pneumothorax following thoracentesis. Interpreted By: Julian Mckeon MD Preliminary Report By: Julian Mckeon MD Electronically Signed By: Julian Mckeon MD Dictated Date: 06/25/2018 2:51:11 PM Prelim Date: 06/25/2018 2:51:11 PM Sign Date: 06/25/2018 2:51:49 PM US DRAINAGE LUNG Observed: 06/25/2018 Status: F Source: [facility] BILATERAL 10:30 AM [facility] REPOSITORY ORIGINAL BILATERAL THORACENTESIS: Therapeutic CLINICAL STATEMENT: Shortness of breath, hypoxia/pleural effusions DRAINAGE/PUNCTURE SITE: RIGHT and LEFT posterior chest QUANTITY OF FLUID REMOVED (R) 1375 mL (L) 1000 mL CHARACTERISTICS OF FLUID: (R) yellow serous (L) yellow serous DISPOSITION OF FLUID: Discarded CATHETERS USED: 5.0 [place] One Step Catheters. The thoracentesis was performed in the usual fashion. The procedure was successful with minimal patient discomfort. No post-procedural complications were identified. IMPRESSION: Successful ultrasound guided bilateral thoracentesis. The procedure was performed by Iesha Matthews, Physician Human Resources Advisor. I concur with the contents of the report. Interpreted By: Claudette Fisher DO Preliminary Report By: Iesha Matthews PA Electronically Signed By: Claudette Fisher DO Dictated Date: 06/25/2018 3:55:16 PM Prelim Date: 06/25/2018 3:56:05 PM Sign Date: 06/25/2018 4:05:50 PM CBC Collected: 06/25/2018 Status: F Source: [facility] 5:10 AM [facility] REPOSITORY TYPE CODE TESTS RESULT OUT OF REFERENCE UNITS RANGE LAB WBC(LOINC) 4.50-10.80 10 3/mcL WBC 8.50 LAB RBCCT(LOINC 4.10-5.30 10 6/mcL ) Low RBC 3.18 LAB HGB(LOINC) 12.0-16.0 G/dL Low Hgb 9.6 LAB HCT(LOINC) 34.0-46.0 % Low Hct 29.2 LAB MCV(LOINC) 80.0-99.0 fL MCV 91.7 LAB MCH(LOINC) 27.0-33.0 pg MCH 30.2 LAB MCHC(LOINC) 32.0-36.0 G/dL MCHC 32.9 LAB RDW(LOINC) 11.5-15.5 % High RDW 17.0 LAB PLT(LOINC) 150-450 10 3/mcL Low Platelet 149 LAB MPV(LOINC) 6.6-10.5 fL MPV 8.4 Performed By: #### CBC, ADIFF, ANEU, BMP, GFR #### [facility] [address] [place], [place] [address] .AUTO DIFF Collected: 06/25/2018 Status: F Source: [facility] 5:10 AM [facility] REPOSITORY TYPE CODE TESTS RESULT OUT OF REFERENCE UNITS RANGE LAB EUGENIE(LOINC) 50.0-75.0 % High Neutrophil % 88.7 LAB LYM(LOINC) 20.0-40.0 % Low Lymphocyte % 4.4 LAB MON(LOINC) 2.0-13.0 % Monocyte % 5.3 LAB EO(LOINC) 0.0-6.0 % Eosinophil % 1.0 LAB BAS(LOINC) 0.0-2.5 % Basophil % 0.6 LAB ABLYM(LOIN 0.90-4.32 10 3/mcL C) Low Lymphocyte, 0.40 Absolute LAB NICK(LOINC 0.09-1.40 10 3/mcL ) Monocyte, 0.40 Absolute LAB AEOS(LOINC 0.00-0.65 10 3/mcL ) Eosinophil, 0.10 Absolute LAB ABAS(LOINC 0.00-0.27 10 3/mcL ) Basophil, 0.00 Absolute Performed By: #### CBC, ADIFF, ANEU, BMP, GFR #### [place] [address] .NEUABS Collected: 06/25/2018 Status: F Source: [facility] 5:10 AM [facility] REPOSITORY TYPE CODE TESTS RESULT OUT OF REFERENCE UNITS RANGE LAB ANEU(LOINC) 2.25-8.10 10 3/mcL Neutrophil, 7.50 Absolute Performed By: #### CBC, ADIFF, ANEU, BMP, GFR #### [place] [address] BMP Collected: 06/25/2018 Status: F Source: [facility] 5:10 AM [facility] REPOSITORY TYPE CODE TESTS RESULT OUT OF REFERENCE UNITS RANGE LAB GLU(LOINC) 82-115 mg/dL Glucose High Level 144 LAB NA(LOINC) 136-145 mEq/L Sodium Level 141 LAB K(LOINC) 3.5-5.0 mEq/L Potassium Level 3.8 LAB CL(LOINC) 98-110 mEq/L Chloride 100 LAB CO2(LOINC) 22-32 mEq/L CO2 High 36 LAB EBAL(LOINC 4.0-15.0 mEq/L ) Electrolyte Balance 5.0 LAB BUN(LOINC) 8.0-22.0 mg/dL BUN High 24.0 LAB CRE(LOINC) 0.50-1.20 mg/dL Creatinine High Lvl (s) 1.29 LAB BC(LOINC) 10.0-22.0 ratio BUN/Creatinine 18.6 Ratio LAB CA(LOINC) 8.4-10.1 mg/dL Low Calcium Lvl 7.0 Performed By: #### CBC, ADIFF, ANEU, BMP, GFR #### [facility] [address] [place] [address] .GFR Collected: 06/25/2018 Status: F Source: [facility] 5:10 AM [facility] REPOSITORY TYPE CODE TESTS RESULT OUT OF REFERENCE UNITS RANGE LAB GFRAA(LOINC ml/min/1.73 ) sqm GFR 49 [place]o Result Comment: GFR Population mean for , Non- Americans Ages 20-29 = 116 mL/min/1.73 sq.m. Ages 30-39 = 107 mL/min/1.73 sq.m. Ages 40-49 = 99 mL/min/1.73 sq.m. Ages 50-59 = 93 mL/min/1.73 sq.m. Ages 60-69 = 85 mL/min/1.73 sq.m. Ages 70+ = 75 mL/min/1.73 sq.m. Chronic Kidney Disease: Less than 60 mL/min/1.73 square meters End Stage Renal Disease: Less than 15 mL/min/1.73 square meters LAB GFRNO(LOINC) ml/min/1.73sqm GFR Non- 40 Result Comment: GFR Population mean for , Non- Americans Ages 20-29 = 116 mL/min/1.73 sq.m. Ages 30-39 = 107 mL/min/1.73 sq.m. Ages 40-49 = 99 mL/min/1.73 sq.m. Ages 50-59 = 93 mL/min/1.73 sq.m. Ages 60-69 = 85 mL/min/1.73 sq.m. Ages 70+ = 75 mL/min/1.73 sq.m. Chronic Kidney Disease: Less than 60 mL/min/1.73 square meters End Stage Renal Disease: Less than 15 mL/min/1.73 square meters Performed By: #### CBC, ADIFF, ANEU, BMP, GFR #### [place] [address] BMP Collected: 06/24/2018 Status: F Source: [facility] 5:52 AM [facility] REPOSITORY TYPE CODE TESTS RESULT OUT OF REFERENCE UNITS RANGE LAB GLU(LOINC) 83-110 mg/dL Glucose High Level 148 LAB NA(LOINC) 136-145 mmol/L Sodium Level 140 LAB K(LOINC) 3.5-5.1 mmol/L Potassium Level 4.4 LAB CL(LOINC) 98-107 mmol/L Chloride 101 LAB CO2(LOINC) 23-31 mmol/L CO2 High 36 LAB EBAL(LOINC mEq/L ) Electrolyte Balance 3.0 LAB BUN(LOINC) 7-18 mg/dL BUN High 30 LAB CRE(LOINC) 0.55-1.02 mg/dL Creatinine High Lvl (s) 1.70 LAB BC(LOINC) 7-27 ratio BUN/Creatinine 18 Ratio LAB CA(LOINC) 8.4-10.2 mg/dL Low Calcium Lvl 7.5 Performed By: #### BMP, GFR #### [place] [id number] .GFR Collected: 06/24/2018 Status: F Source: [facility] 5:52 AM [facility] REPOSITORY TYPE CODE TESTS RESULT OUT OF REFERENCE UNITS RANGE LAB GFRAA(LOINC ml/min/1.73 ) sqm GFR 36 [place] Result Comment: GFR Population mean for , Non- Americans Ages 20-29 = 116 mL/min/1.73 sq.m. Ages 30-39 = 107 mL/min/1.73 sq.m. Ages 40-49 = 99 mL/min/1.73 sq.m. Ages 50-59 = 93 mL/min/1.73 sq.m. Ages 60-69 = 85 mL/min/1.73 sq.m. Ages 70+ = 75 mL/min/1.73 sq.m. Chronic Kidney Disease: Less than 60 mL/min/1.73 square meters End Stage Renal Disease: Less than 15 mL/min/1.73 square meters LAB GFRNO(LOINC) ml/min/1.73sqm GFR Non- 29 Result Comment: GFR Population mean for , Non- Americans Ages 20-29 = 116 mL/min/1.73 sq.m. Ages 30-39 = 107 mL/min/1.73 sq.m. Ages 40-49 = 99 mL/min/1.73 sq.m. Ages 50-59 = 93 mL/min/1.73 sq.m. Ages 60-69 = 85 mL/min/1.73 sq.m. Ages 70+ = 75 mL/min/1.73 sq.m. Chronic Kidney Disease: Less than 60 mL/min/1.73 square meters End Stage Renal Disease: Less than 15 mL/min/1.73 square meters Performed By: #### JAMES, GFR #### [address] [id number] BMP Collected: 06/23/2018 Status: F Source: [facility] 6:32 AM [facility] REPOSITORY TYPE CODE TESTS RESULT OUT OF REFERENCE UNITS RANGE LAB GLU(LOINC) 83-110 mg/dL Glucose High Level 176 LAB NA(LOINC) 136-145 mmol/L Sodium Level 139 LAB K(LOINC) 3.5-5.1 mmol/L Potassium Level 4.3 LAB CL(LOINC) 98-107 mmol/L Chloride 101 LAB CO2(LOINC) 23-31 mmol/L CO2 High 36 LAB EBAL(LOINC mEq/L ) Electrolyte Balance 2.0 LAB BUN(LOINC) 7-18 mg/dL BUN High 39 LAB CRE(LOINC) 0.55-1.02 mg/dL Creatinine High Lvl (s) 2.56 LAB BC(LOINC) 7-27 ratio BUN/Creatinine 15 Ratio LAB CA(LOINC) 8.4-10.2 mg/dL Low Calcium Lvl 7.8 Performed By: #### BMP, GFR #### [address] [address] .GFR Collected: 06/23/2018 Status: F Source: [facility] 6:32 AM [facility] REPOSITORY TYPE CODE TESTS RESULT OUT OF REFERENCE UNITS RANGE LAB GFRAA(LOINC ml/min/1.73 ) sqm GFR 22 Lao Result Comment: GFR Population mean for , Non- Americans Ages 20-29 = 116 mL/min/1.73 sq.m. Ages 30-39 = 107 mL/min/1.73 sq.m. Ages 40-49 = 99 mL/min/1.73 sq.m. Ages 50-59 = 93 mL/min/1.73 sq.m. Ages 60-69 = 85 mL/min/1.73 sq.m. Ages 70+ = 75 mL/min/1.73 sq.m. Chronic Kidney Disease: Less than 60 mL/min/1.73 square meters End Stage Renal Disease: Less than 15 mL/min/1.73 square meters LAB GFRNO(LOINC) ml/min/1.73sqm GFR Non- 18 Result Comment: GFR Population mean for , Non- Americans Ages 20-29 = 116 mL/min/1.73 sq.m. Ages 30-39 = 107 mL/min/1.73 sq.m. Ages 40-49 = 99 mL/min/1.73 sq.m. Ages 50-59 = 93 mL/min/1.73 sq.m. Ages 60-69 = 85 mL/min/1.73 sq.m. Ages 70+ = 75 mL/min/1.73 sq.m. Chronic Kidney Disease: Less than 60 mL/min/1.73 square meters End Stage Renal Disease: Less than 15 mL/min/1.73 square meters Performed By: #### BMP, GFR #### [address] [address] MG Collected: 06/22/2018 Status: F Source: [facility] 5:22 AM [facility] REPOSITORY TYPE CODE TESTS RESULT OUT OF REFERENCE UNITS RANGE LAB MG(LOINC) 1.8-2.4 mg/dL High Magnesium Lvl 2.5 Performed By: #### MG, BAIC, GFR #### [address] [address] BAIC Collected: 06/22/2018 Status: F Source: [facility] 5:22 AM [facility] REPOSITORY TYPE CODE TESTS RESULT OUT OF REFERENCE UNITS RANGE LAB GLU(LOINC) 83-110 mg/dL Glucose High Level 166 LAB NA(LOINC) 136-145 mmol/L Sodium Level 144 LAB K(LOINC) 3.5-5.1 mmol/L Low Potassium Level 3.4 LAB CL(LOINC) 98-107 mmol/L Chloride 103 LAB CO2(LOINC) 23-31 mmol/L CO2 High 34 LAB EBAL(LOINC mEq/L ) Electrolyte Balance 7.0 LAB BUN(LOINC) 7-18 mg/dL BUN High 50 LAB CRE(LOINC) 0.55-1.02 mg/dL Creatinine High Lvl (s) 3.71 LAB BC(LOINC) 7-27 ratio BUN/Creatinine 13 Ratio LAB CAION(LOIN 1.12-1.32 mmol/L C) Low Calcium Ionized 1.07 Performed By: #### MG, BAIC, GFR #### [facility] [address] [place] [address] .GFR Collected: 06/22/2018 Status: F Source: [facility] 5:22 AM [facility] REPOSIT[facility] TYPE CODE TESTS RESULT OUT OF REFERENCE UNITS RANGE LAB GFRAA(LOINC ml/min/1.73 ) sqm GFR 14 Lao Result Comment: GFR Population mean for , Non- Americans Ages 20-29 = 116 mL/min/1.73 sq.m. Ages 30-39 = 107 mL/min/1.73 sq.m. Ages 40-49 = 99 mL/min/1.73 sq.m. Ages 50-59 = 93 mL/min/1.73 sq.m. Ages 60-69 = 85 mL/min/1.73 sq.m. Ages 70+ = 75 mL/min/1.73 sq.m. Chronic Kidney Disease: Less than 60 mL/min/1.73 square meters End Stage Renal Disease: Less than 15 mL/min/1.73 square meters LAB GFRNO(LOINC) ml/min/1.73sqm GFR Non- 12 Result Comment: GFR Population mean for , Non- Americans Ages 20-29 = 116 mL/min/1.73 sq.m. Ages 30-39 = 107 mL/min/1.73 sq.m. Ages 40-49 = 99 mL/min/1.73 sq.m. Ages 50-59 = 93 mL/min/1.73 sq.m. Ages 60-69 = 85 mL/min/1.73 sq.m. Ages 70+ = 75 mL/min/1.73 sq.m. Chronic Kidney Disease: Less than 60 mL/min/1.73 square meters End Stage Renal Disease: Less than 15 mL/min/1.73 square meters Performed By: #### MG, BAIC, GFR #### [place] [id number] [place] [address] CT ABDOMEN/PELVIS W/O Observed: 06/21/2018 Status: F Source: [facility] 12:16 PM [facility] [place] REPOSITORY ORIGINAL CT abdomen and pelvis without oral or IV contrast, 06/21/2018. Medical information: Isoechoic lesion adjacent to RIGHT kidney on ultrasound, acute renal failure. COMPARISON: Renal ultrasound 06/19/2018 This exam was performed according to our departmental dose optimization program, and includes the following measures where applicable: automated exposure control, adjustment of the mAs and/or kVp accord ing to patient size and/or exam, and an iterative reconstruction algorithm. Heart is moderately dilated. No basilar pericardial effusion. 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 There are moderate bilateral basilar pleural effusions and there is prominent consolidation in both lower lobes. Liver is lobular in contour in superior RIGHT lobe. There are branching gas collections within the liver, likely within intrahepatic bile ducts. There is a small volume of perihepatic ascites. Spleen co ntains several calcifications felt to be granulomas. Pancreas, RIGHT adrenal gland are felt to be normal. LEFT adrenal gland appears thickened. The kidneys are normal in size and shape. There is prominent RIGHT upper perirenal linear stranding and this is nonspecific. There is high attenuation within portions of superior RIGHT renal parenchyma of uncertain cause. No additional renal or perirenal mass lesion is detected. There are vascular calcifications in the renal arteries. No hydronephrosis. IVC, atherosclerotic aorta and iliac arteries are normal caliber. No retroperitoneal adenopathy. Bowel loops are not abnormally distended. Gastric alba are thick, possibly due to underdistention. There is wall thickening in the area of the duodenum. Gallbladder is not visualized. No intraperitoneal air or mesenteric mass. Pelvic images show fluid filled urinary bladder. Vertically oriented uterus is normal size and contains a few small punctate calcifications. There is a small volume of RIGHT sided pelvic peritoneal fluid. There is multilevel lumbar degenerative disc disease. There is degenerative change in the lumbar facet joints without spondylolisthesis. IMPRESSION: Cardiac dilatation with prosthetic mitral valve. Moderate-sized bilateral pleural effusions and extensive consolidation in both lower lobes. Small amount of perihepatic and RIGHT pelvic ascites, nonspecific. Branching intrahepatic gas densities are likely within the biliary tree. There is wall thickening of the stomach and duodenum of uncertain cause and significance. Endoscopic evaluation may be helpful. No RIGHT perirenal mass is detected as suspected on ultrasound. Bilateral perirenal linear stranding is nonspecific. No hydronephrosis. LEFT adrenal thickening suggesting hyperplasia. Severe atherosclerosis area Multilevel lumbar degenerative disc disease. Interpreted By: Telly Avila MD Preliminary Report By: Telly Avila MD Electronically Signed By: Telly Avila MD Dictated Date: 06/21/2018 12:35:57 PM Prelim Date: 06/21/2018 12:35:57 PM Sign Date: 06/21/2018 12:49:22 PM TROP Collected: 06/21/2018 Status: F Source: [place] [employer] 12:14 PM [facility] REPOSITORY TYPE CODE TESTS RESULT OUT OF RANGE REFERENCE UNITS LAB TROP(LOINC 0.000-0.040 ng/mL ) Abnormal Alert Troponin 0.272 Result Comment: Troponin I reference range: 0.00-0.040 ng/mL Negative and non-diagnostic. >0.040 ng/mL Consistent with cardiac damage, increased clinical risk and possibility of myocardial infarction. Serial measurements, a rise & fall in test results, clinical history, appropriate symptoms and/or ECG changes may help assess possibility of LA. *Other non-acute coronary syndrome conditions such as CHF, myocarditis, pulmonary emboli, sepsis and cardiac surgery could result in myocardial damage and increased troponin levels. Performed By: #### TROP #### [place] [address] .GFR Collected: 06/21/2018 Status: F Source: [facility] 5:11 AM [facility] REPOSITORY TYPE CODE TESTS RESULT OUT OF REFERENCE UNITS RANGE LAB GFRAA(LOINC ml/min/1.73 ) sqm GFR 11 Lao Result Comment: GFR Population mean for , Non- Americans Ages 20-29 = 116 mL/min/1.73 sq.m. Ages 30-39 = 107 mL/min/1.73 sq.m. Ages 40-49 = 99 mL/min/1.73 sq.m. Ages 50-59 = 93 mL/min/1.73 sq.m. Ages 60-69 = 85 mL/min/1.73 sq.m. Ages 70+ = 75 mL/min/1.73 sq.m. Chronic Kidney Disease: Less than 60 mL/min/1.73 square meters End Stage Renal Disease: Less than 15 mL/min/1.73 square meters LAB GFRNO(LOINC) ml/min/1.73sqm GFR Non- 9 Result Comment: GFR Population mean for , Non- Americans Ages 20-29 = 116 mL/min/1.73 sq.m. Ages 30-39 = 107 mL/min/1.73 sq.m. Ages 40-49 = 99 mL/min/1.73 sq.m. Ages 50-59 = 93 mL/min/1.73 sq.m. Ages 60-69 = 85 mL/min/1.73 sq.m. Ages 70+ = 75 mL/min/1.73 sq.m. Chronic Kidney Disease: Less than 60 mL/min/1.73 square meters End Stage Renal Disease: Less than 15 mL/min/1.73 square meters Performed By: #### GFR, MG, PHOS, CMP #### [address] [address] #### CBC, ADIFF, ANEU, CAION, PHV #### [place] [address] [place], [place] [address] CBC Collected: 06/21/2018 Status: F Source: [facility] 5:11 AM [facility] REPOSITORY TYPE CODE TESTS RESULT OUT OF REFERENCE UNITS RANGE LAB WBC(LOINC) 4.60-10.80 10 3/mcL High WBC 12.20 LAB RBCCT(LOINC 4.20-5.40 10 6/mcL ) Low RBC 3.12 LAB HGB(LOINC) 12.0-16.0 G/dL Low Hgb 9.4 LAB HCT(LOINC) 37.0-47.0 % Low Hct 28.6 LAB MCV(LOINC) 80.0-94.0 fL MCV 91.5 LAB MCH(LOINC) 27.0-31.2 pg MCH 30.0 LAB MCHC(LOINC) 33.0-37.0 G/dL Low MCHC 32.8 LAB RDW(LOINC) 11.5-14.5 % High RDW 17.2 LAB PLT(LOINC) 130-400 10 3/mcL Platelet 147 LAB MPV(LOINC) 7.4-10.4 fL MPV 8.7 Performed By: #### GFR, MG, PHOS, CMP #### [place] [address] #### CBC, ADIFF, ANEU, CAION, PHV #### [address] [address] .AUTO DIFF Collected: 06/21/2018 Status: F Source: [facility] 5:11 AM [facility] REPOSITORY TYPE CODE TESTS RESULT OUT OF REFERENCE UNITS RANGE LAB EUGENIE(LOINC) 37.0-80.0 % High Neutrophil % 89.0 LAB LYM(LOINC) 10.0-50.0 % Low Lymphocyte % 5.3 LAB MON(LOINC) 1.7-13.0 % Monocyte % 4.7 LAB EO(LOINC) 0.0-7.0 % Eosinophil % 0.3 LAB BAS(LOINC) 0.0-2.5 % Basophil % 0.7 LAB ABLYM(LOIN 0.77-3.85 10 3/mcL C) Low Lymphocyte, 0.60 Absolute LAB NICK(LOINC 0.15-1.00 10 3/mcL ) Monocyte, 0.60 Absolute LAB AEOS(LOINC 0.00-0.40 10 3/mcL ) Eosinophil, 0.00 Absolute LAB ABAS(LOINC 0.00-0.19 10 3/mcL ) Basophil, 0.10 Absolute Performed By: #### GFR, MG, PHOS, CMP #### [place] [address] #### CBC, ADIFF, ANEU, CAION, PHV #### [address] [address] .NEUABS Collected: 06/21/2018 Status: F Source: [facility] 5:11 AM [facility] REPOSITORY TYPE CODE TESTS RESULT OUT OF REFERENCE UNITS RANGE LAB ANEU(LOINC) 2.85-6.16 10 3/mcL High Neutrophil, 10.80 Absolute Performed By: #### GFR, MG, PHOS, CMP #### [place] [address] #### CBC, ADIFF, ANEU, CAION, PHV #### [address] [address] CAION Collected: 06/21/2018 Status: F Source: [facility] 5:11 AM [facility] REPOSITORY TYPE CODE TESTS RESULT OUT OF REFERENCE UNITS RANGE LAB CAION(LOINC 1.12-1.32 mmol/L ) Low Calcium 0.90 Ionized Performed By: #### GFR, MG, PHOS, CMP #### [place] [address] #### CBC, ADIFF, ANEU, CAION, PHV #### [address] [address] PHV Collected: 06/21/2018 Status: F Source: [facility] 5:11 AM [facility] REPOSITORY TYPE CODE TESTS RESULT OUT OF REFERENCE UNITS RANGE LAB PHV(LOINC) 7.35-7.45 pH Venous 7.39 Performed By: #### GFR, MG, PHOS, CMP #### [place] [address] #### CBC, ADIFF, ANEU, CAION, PHV #### [address] [address] MG Collected: 06/21/2018 Status: F Source: [facility] 5:11 AM [facility] REPOSITORY TYPE CODE TESTS RESULT OUT OF REFERENCE UNITS RANGE LAB MG(LOINC) 1.8-2.4 mg/dL Low Magnesium Lvl 1.6 Performed By: #### GFR, MG, PHOS, CMP #### [place] [address] #### CBC, ADIFF, ANEU, CAION, PHV #### [address] [address] PHOS Collected: 06/21/2018 Status: F Source: [facility] 5:11 AM [facility] REPOSITORY TYPE CODE TESTS RESULT OUT OF REFERENCE UNITS RANGE LAB PHOS(LOINC 2.3-4.1 mg/dL ) High Phosphorus 6.4 Performed By: #### GFR, MG, PHOS, CMP #### [place] [address] #### CBC, ADIFF, ANEU, CAION, PHV #### [address] [address] CMP Collected: 06/21/2018 Status: F Source: [facility] 5:11 AM [facility] REPOSITORY TYPE CODE TESTS RESULT OUT OF RANGE REFERENCE UNITS LAB GLU(LOINC) 83-110 mg/dL High Glucose Level 136 LAB NA(LOINC) 136-145 mmol/L High Sodium Level 146 LAB K(LOINC) 3.5-5.1 mmol/L Potassium Level 3.5 LAB CL(LOINC) 98-107 mmol/L Chloride 103 LAB CO2(LOINC) 23-31 mmol/L CO2 28 LAB EBAL(LOINC mEq/L ) Electrolyte Balance 15.0 LAB BUN(LOINC) 7-18 mg/dL High BUN 47 LAB CRE(LOINC) 0.55-1.02 mg/dL High Creatinine Lvl (s) 4.89 LAB BC(LOINC) 7-27 ratio BUN/Creatinine 10 Ratio LAB CA(LOINC) 8.4-10.2 mg/dL Calcium Lvl Abnormal 6.7 Alert LAB PROT(LOINC 6.4-8.2 G/dL ) Low Total Protein 5.1 LAB ALB(LOINC) 3.4-4.8 G/dL Low Albumin Level 1.8 LAB GLB(LOINC) G/dL Globulin 3.3 LAB AG(LOINC) 1.1-2.5 ratio Low A/G Ratio 0.5 LAB BILT(LOINC 0.2-1.0 mg/dL ) Bili Total 0.4 LAB AP(LOINC) 40-135 U/L Alk Phos 112 LAB AST(LOINC) 10-40 U/L AST/SGOT 18 LAB ALT(LOINC) 10-35 U/L ALT/SGPT 10 Performed By: #### GFR, MG, PHOS, CMP #### [place] [address] #### CBC, ADIFF, ANEU, CAION, PHV #### [place] [address] [place], [place] [address] TROP Collected: 06/21/2018 Status: F Source: [facility] 5:11 AM [facility] REPOSITORY TYPE CODE TESTS RESULT OUT OF RANGE REFERENCE UNITS LAB TROP(LOINC 0.000-0.040 ng/mL ) Abnormal Alert Troponin 0.266 Result Comment: Troponin I reference range: 0.00-0.040 ng/mL Negative and non-diagnostic. >0.040 ng/mL Consistent with cardiac damage, increased clinical risk and possibility of myocardial infarction. Serial measurements, a rise & fall in test results, clinical history, appropriate symptoms and/or ECG changes may help assess possibility of LA. *Other non-acute coronary syndrome conditions such as CHF, myocarditis, pulmonary emboli, sepsis and cardiac surgery could result in myocardial damage and increased troponin levels. Performed By: #### TROP #### [address] [address] CAION Collected: 06/20/2018 Status: F Source: [facility] 7:28 AM [facility] REPOSITORY TYPE CODE TESTS RESULT OUT OF REFERENCE UNITS RANGE LAB CAION(LOINC 1.12-1.32 mmol/L ) Low Calcium 0.89 Ionized Performed By: #### CAION #### [address] [address] CBC Collected: 06/20/2018 Status: F Source: [facility] 5:38 AM [facility] REPOSITORY TYPE CODE TESTS RESULT OUT OF REFERENCE UNITS RANGE LAB WBC(LOINC) 4.60-10.80 10 3/mcL High WBC 16.40 LAB RBCCT(LOINC 4.20-5.40 10 6/mcL ) Low RBC 3.33 LAB HGB(LOINC) 12.0-16.0 G/dL Low Hgb 9.8 LAB HCT(LOINC) 37.0-47.0 % Low Hct 31.1 LAB MCV(LOINC) 80.0-94.0 fL MCV 93.5 LAB MCH(LOINC) 27.0-31.2 pg MCH 29.5 LAB MCHC(LOINC) 33.0-37.0 G/dL Low MCHC 31.6 LAB RDW(LOINC) 11.5-14.5 % High RDW 17.2 LAB PLT(LOINC) 130-400 10 3/mcL Platelet 164 LAB MPV(LOINC) 7.4-10.4 fL MPV 8.8 Performed By: #### CBC, ADIFF, ANEU #### [address] [address] #### BMP, GFR #### [place] [address] .AUTO DIFF Collected: 06/20/2018 Status: F Source: [facility] 5:38 AM [facility] REPOSITORY TYPE CODE TESTS RESULT OUT OF REFERENCE UNITS RANGE LAB EUGENIE(LOINC) 37.0-80.0 % High Neutrophil % 90.5 LAB LYM(LOINC) 10.0-50.0 % Low Lymphocyte % 4.9 LAB MON(LOINC) 1.7-13.0 % Monocyte % 3.8 LAB EO(LOINC) 0.0-7.0 % Eosinophil % 0.1 LAB BAS(LOINC) 0.0-2.5 % Basophil % 0.7 LAB ABLYM(LOIN 0.77-3.85 10 3/mcL C) Lymphocyte, 0.80 Absolute LAB NICK(LOINC 0.15-1.00 10 3/mcL ) Monocyte, 0.60 Absolute LAB AEOS(LOINC 0.00-0.40 10 3/mcL ) Eosinophil, 0.00 Absolute LAB ABAS(LOINC 0.00-0.19 10 3/mcL ) Basophil, 0.10 Absolute Performed By: #### CBC, ADIFF, ANEU #### [address] [address] #### BMP, GFR #### [place] [address] .NEUABS Collected: 06/20/2018 Status: F Source: [facility] 5:38 AM [facility] REPOSITORY TYPE CODE TESTS RESULT OUT OF REFERENCE UNITS RANGE LAB ANEU(LOINC) 2.85-6.16 10 3/mcL High Neutrophil, 14.80 Absolute Performed By: #### CBC, ADIFF, ANEU #### [address] [address] #### BMP, GFR #### [place] [address] BMP Collected: 06/20/2018 Status: F Source: [facility] 5:38 AM [facility] REPOSITORY TYPE CODE TESTS RESULT OUT OF RANGE REFERENCE UNITS LAB GLU(LOINC) 83-110 mg/dL High Glucose Level 134 LAB NA(LOINC) 136-145 mmol/L High Sodium Level 147 LAB K(LOINC) 3.5-5.1 mmol/L Potassium Level 3.8 LAB CL(LOINC) 98-107 mmol/L Chloride 107 LAB CO2(LOINC) 23-31 mmol/L Low CO2 15 LAB EBAL(LOINC mEq/L ) Electrolyte Balance 25.0 LAB BUN(LOINC) 7-18 mg/dL High BUN 51 LAB CRE(LOINC) 0.55-1.02 mg/dL High Creatinine Lvl (s) 4.95 LAB BC(LOINC) 7-27 ratio BUN/Creatinine 10 Ratio LAB CA(LOINC) 8.4-10.2 mg/dL Calcium Lvl Abnormal 6.5 Alert Performed By: #### CBC, ADIFF, ANEU #### [facility] [address] [place], [place] [address] #### BMP, GFR #### [address] [address] .GFR Collected: 06/20/2018 Status: F Source: [facility] 5:38 AM [facility] REPOSITORY TYPE CODE TESTS RESULT OUT OF REFERENCE UNITS RANGE LAB GFRAA(LOINC ml/min/1.73 ) sqm GFR 10 Lao Result Comment: GFR Population mean for , Non- Americans Ages 20-29 = 116 mL/min/1.73 sq.m. Ages 30-39 = 107 mL/min/1.73 sq.m. Ages 40-49 = 99 mL/min/1.73 sq.m. Ages 50-59 = 93 mL/min/1.73 sq.m. Ages 60-69 = 85 mL/min/1.73 sq.m. Ages 70+ = 75 mL/min/1.73 sq.m. Chronic Kidney Disease: Less than 60 mL/min/1.73 square meters End Stage Renal Disease: Less than 15 mL/min/1.73 square meters LAB GFRNO(LOINC) ml/min/1.73sqm GFR Non- 9 Result Comment: GFR Population mean for , Non- Americans Ages 20-29 = 116 mL/min/1.73 sq.m. Ages 30-39 = 107 mL/min/1.73 sq.m. Ages 40-49 = 99 mL/min/1.73 sq.m. Ages 50-59 = 93 mL/min/1.73 sq.m. Ages 60-69 = 85 mL/min/1.73 sq.m. Ages 70+ = 75 mL/min/1.73 sq.m. Chronic Kidney Disease: Less than 60 mL/min/1.73 square meters End Stage Renal Disease: Less than 15 mL/min/1.73 square meters Performed By: #### CBC, ADIFF, ANEU #### [facility] [address] [place], [place] [address] #### BMP, GFR #### [place] [address] Observed: 06/19/2018 Status: F Source: [facility] 6:04 PM [facility] REPOSITORY . MICRO - Microbiology PROCEDURE: Urine Culture [*1] SOURCE: Urine, Clean Catch BODY SITE: COLLECTED DATE/TIME: 06/19/2018 18:04 EST RECEIVED DATE/TIME: 06/20/2018 15:57 EST START DATE/TIME: 06/20/2018 15:57 EST FREE TEXT SOURCE: FINAL REPORTS Final Report [] Verified Date/Time/Personnel: 06/22/2018 15:07 EST >100,000 organisms per mL Presumptive Linnea albicans Contact Microbiology within 72 hours if further identification is indicated ([id number]). [place] counts from a single urine are equivocal in determining infection vs. colonization of yeast. Multiple cultures at least 24 hours apart may be helpful in differentiating colonization from infection. PRELIMINARY REPORTS Preliminary Report [] Verified Date/Time/Personnel: 06/21/2018 13:20 EST Culture results pending. Performing Locations *1: This test was performed at: [address], [address] [place] [address] Performed By: #### CUR #### [place] [address] CRUR Collected: 06/19/2018 Status: F Source: [facility] 4:38 PM [facility] REPOSITORY TYPE CODE TESTS RESULT OUT OF REFERENCE UNITS RANGE LAB CRU(LOINC) 28.0-117.0 mg/dL U Creatinine 66.9 Performed By: #### CRUR, NAUR #### [place] [address] NAUR Collected: 06/19/2018 Status: F Source: [facility] 4:38 PM [facility] REPOSITORY TYPE CODE TESTS RESULT OUT OF REFERENCE UNITS RANGE LAB KARL(LOINC) 20-110 mmol/L U Sodium 75 Performed By: #### SANJAY, NAUR #### [place] [id number] BMP Collected: 06/19/2018 Status: F Source: [facility] 4:09 PM [facility] REPOSITORY TYPE CODE TESTS RESULT OUT OF RANGE REFERENCE UNITS LAB GLU(LOINC) 83-110 mg/dL High Glucose Level 114 LAB NA(LOINC) 136-145 mmol/L High Sodium Level 147 LAB K(LOINC) 3.5-5.1 mmol/L Potassium Level 4.2 LAB CL(LOINC) 98-107 mmol/L Chloride 107 LAB CO2(LOINC) 23-31 mmol/L Low CO2 11 LAB EBAL(LOINC mEq/L ) Electrolyte Balance 29.0 LAB BUN(LOINC) 7-18 mg/dL High BUN 49 LAB CRE(LOINC) 0.55-1.02 mg/dL High Creatinine Lvl (s) 4.67 LAB BC(LOINC) 7-27 ratio BUN/Creatinine 10 Ratio LAB CA(LOINC) 8.4-10.2 mg/dL Calcium Lvl Abnormal 6.9 Alert Performed By: #### BMP, GFR #### [address] [address] .GFR Collected: 06/19/2018 Status: F Source: [facility] 4:09 [facility] REPOSITORY TYPE CODE TESTS RESULT OUT OF REFERENCE UNITS RANGE LAB GFRAA(LOINC ml/min/1.73 ) sqm GFR 11 Lao Result Comment: GFR Population mean for , Non- Americans Ages 20-29 = 116 mL/min/1.73 sq.m. Ages 30-39 = 107 mL/min/1.73 sq.m. Ages 40-49 = 99 mL/min/1.73 sq.m. Ages 50-59 = 93 mL/min/1.73 sq.m. Ages 60-69 = 85 mL/min/1.73 sq.m. Ages 70+ = 75 mL/min/1.73 sq.m. Chronic Kidney Disease: Less than 60 mL/min/1.73 square meters End Stage Renal Disease: Less than 15 mL/min/1.73 square meters LAB GFRNO(LOINC) ml/min/1.73sqm GFR Non- 9 Result Comment: GFR Population mean for , Non- Americans Ages 20-29 = 116 mL/min/1.73 sq.m. Ages 30-39 = 107 mL/min/1.73 sq.m. Ages 40-49 = 99 mL/min/1.73 sq.m. Ages 50-59 = 93 mL/min/1.73 sq.m. Ages 60-69 = 85 mL/min/1.73 sq.m. Ages 70+ = 75 mL/min/1.73 sq.m. Chronic Kidney Disease: Less than 60 mL/min/1.73 square meters End Stage Renal Disease: Less than 15 mL/min/1.73 square meters Performed By: #### BMP, GFR #### [facility] [address] [place] [address] US RENAL Observed: 06/19/2018 Status: F Source: [facility] 2:01 PM [facility] RE[facility]ITORY ORIGINAL US RENAL (US RETROPERITONEUM COMPLETE) CLINICAL STATEMENT: elevated creatinine. COMPARISON: 05/31/2018 FINDINGS: The RIGHT kidney measures 9.0 x 4.3 x 3.8 cm and is increased in echogenicity along the superior aspect, not significant changed. A RIGHT renal cyst measuring 1.3 cm is identified. Adjacent to the RIGHT kidney is an isoechoic lesion measuring 3.7 x 3.4 x 2.2 cm. No intrinsic blood flow is identified. The LEFT kidney measures 10.1 x 5.2 x 4.7 cm and demonstrates a hypoechoic lesion measuring approximately 1 cm with posterior acoustic enhancement and thin internal septation without blood flow seen. No hydronephrosis. Renal cortical thickness is appropriate. There is no free fluid seen in the abdomen. Urinary bladder is decompressed and therefore not evaluated. IMPRESSION: 1. Increased echogenicity of the superior RIGHT renal cortex similar to prior exams. 2. Isoechoic lesion adjacent to the RIGHT kidney for which mass cannot be excluded. Nonemergent CT recommended. 3. No hydronephrosis. Interpreted By: Uma Quinn MD Preliminary Report By: Uma Quinn MD Electronically Signed By: Uma Quinn MD Dictated Date: 06/19/2018 2:55:04 PM Prelim Date: 06/19/2018 2:55:04 PM Sign Date: 06/19/2018 3:03:23 PM BMP Collected: 06/19/2018 Status: F Source: [facility] 5:27 AM [facility] REPOSITORY TYPE CODE TESTS RESULT OUT OF REFERENCE UNITS RANGE LAB GLU(LOINC) 83-110 mg/dL Low Glucose Level 75 LAB NA(LOINC) 136-145 mmol/L Sodium High Level 147 LAB K(LOINC) 3.5-5.1 mmol/L Potassium Level 4.5 LAB CL(LOINC) 98-107 mmol/L Chloride 105 LAB CO2(LOINC) 23-31 mmol/L Low CO2 13 LAB EBAL(LOINC mEq/L ) Electrolyte Balance 29.0 LAB BUN(LOINC) 7-18 mg/dL BUN High 41 LAB CRE(LOINC) 0.55-1.02 mg/dL Creatinine High Lvl (s) 4.49 LAB BC(LOINC) 7-27 ratio BUN/Creatinine 9 Ratio LAB CA(LOINC) 8.4-10.2 mg/dL Low Calcium Lvl 7.3 Performed By: #### BMP, GFR #### [place] [address] .GFR Collected: 06/19/2018 Status: F Source: [facility] 5:27 AM [facility] REPOSITORY TYPE CODE TESTS RESULT OUT OF REFERENCE UNITS RANGE LAB GFRAA(LOINC ml/min/1.73 ) sqm GFR 12 Lao Result Comment: GFR Population mean for , Non- Americans Ages 20-29 = 116 mL/min/1.73 sq.m. Ages 30-39 = 107 mL/min/1.73 sq.m. Ages 40-49 = 99 mL/min/1.73 sq.m. Ages 50-59 = 93 mL/min/1.73 sq.m. Ages 60-69 = 85 mL/min/1.73 sq.m. Ages 70+ = 75 mL/min/1.73 sq.m. Chronic Kidney Disease: Less than 60 mL/min/1.73 square meters End Stage Renal Disease: Less than 15 mL/min/1.73 square meters LAB GFRNO(LOINC) ml/min/1.73sqm GFR Non- 10 Result Comment: GFR Population mean for , Non- Americans Ages 20-29 = 116 mL/min/1.73 sq.m. Ages 30-39 = 107 mL/min/1.73 sq.m. Ages 40-49 = 99 mL/min/1.73 sq.m. Ages 50-59 = 93 mL/min/1.73 sq.m. Ages 60-69 = 85 mL/min/1.73 sq.m. Ages 70+ = 75 mL/min/1.73 sq.m. Chronic Kidney Disease: Less than 60 mL/min/1.73 square meters End Stage Renal Disease: Less than 15 mL/min/1.73 square meters Performed By: #### BMP, GFR #### [address] [address] CBC Collected: 06/18/2018 Status: F Source: [facility] 5:25 AM [facility] REPOSITORY TYPE CODE TESTS RESULT OUT OF REFERENCE UNITS RANGE LAB WBC(LOINC) 4.60-10.80 10 3/mcL High WBC 14.40 LAB RBCCT(LOINC 4.20-5.40 10 6/mcL ) Low RBC 3.40 LAB HGB(LOINC) 12.0-16.0 G/dL Low Hgb 9.9 LAB HCT(LOINC) 37.0-47.0 % Low Hct 32.5 LAB MCV(LOINC) 80.0-94.0 fL High MCV 95.7 LAB MCH(LOINC) 27.0-31.2 pg MCH 29.3 LAB MCHC(LOINC) 33.0-37.0 G/dL Low MCHC 30.6 LAB RDW(LOINC) 11.5-14.5 % High RDW 17.6 LAB PLT(LOINC) 130-400 10 3/mcL Platelet 187 LAB MPV(LOINC) 7.4-10.4 fL MPV 8.7 Performed By: #### CBC, ADIFF, ANEU #### [address] [address] #### BMP, GFR #### [address] [address] .AUTO DIFF Collected: 06/18/2018 Status: F Source: [facility] 5:25 AM [facility] REPOSITORY TYPE CODE TESTS RESULT OUT OF REFERENCE UNITS RANGE LAB EUGENIE(LOINC) 37.0-80.0 % High Neutrophil % 87.7 LAB LYM(LOINC) 10.0-50.0 % Low Lymphocyte % 6.6 LAB MON(LOINC) 1.7-13.0 % Monocyte % 4.4 LAB EO(LOINC) 0.0-7.0 % Eosinophil % 0.2 LAB BAS(LOINC) 0.0-2.5 % Basophil % 1.1 LAB ABLYM(LOIN 0.77-3.85 10 3/mcL C) Lymphocyte, 1.00 Absolute LAB NICK(LOINC 0.15-1.00 10 3/mcL ) Monocyte, 0.60 Absolute LAB AEOS(LOINC 0.00-0.40 10 3/mcL ) Eosinophil, 0.00 Absolute LAB ABAS(LOINC 0.00-0.19 10 3/mcL ) High Basophil, 0.20 Absolute Performed By: #### CBC, ADIFF, ANEU #### [address] [address] #### BMP, GFR #### [place] [address] .NEUABS Collected: 06/18/2018 Status: F Source: [email or web address] 5:25 AM [facility] REPOSITORY TYPE CODE TESTS RESULT OUT OF REFERENCE UNITS RANGE LAB ANEU(LOINC) 2.85-6.16 10 3/mcL High Neutrophil, 12.70 Absolute Performed By: #### CBC, ADIFF, ANEU #### [address] [address] #### BMP, GFR #### [place] [address] BMP Collected: 06/18/2018 Status: F Source: [employer] 5:25 [facility] REPOSITORY TYPE CODE TESTS RESULT OUT OF REFERENCE UNITS RANGE LAB GLU(LOINC) 83-110 mg/dL Glucose High Level 111 LAB NA(LOINC) 136-145 mmol/L Sodium Level 145 LAB K(LOINC) 3.5-5.1 mmol/L Potassium Level 4.8 LAB CL(LOINC) 98-107 mmol/L Chloride 106 LAB CO2(LOINC) 23-31 mmol/L Low CO2 20 LAB EBAL(LOINC mEq/L ) Electrolyte Balance 19.0 LAB BUN(LOINC) 7-18 mg/dL BUN High 33 LAB CRE(LOINC) 0.55-1.02 mg/dL Creatinine High Lvl (s) 3.46 LAB BC(LOINC) 7-27 ratio BUN/Creatinine 10 Ratio LAB CA(LOINC) 8.4-10.2 mg/dL Low Calcium Lvl 7.2 Performed By: #### CBC, ADIFF, ANEU #### [place] [id number] [place], [place] [address] #### BMP, GFR #### [address] [address] .GFR Collected: 06/18/2018 Status: F Source: [facility] 5:25 AM [facility] REPOSITORY TYPE CODE TESTS RESULT OUT OF REFERENCE UNITS RANGE LAB GFRAA(LOINC ml/min/1.73 ) sqm GFR 16 Lao Result Comment: GFR Population mean for , Non- Americans Ages 20-29 = 116 mL/min/1.73 sq.m. Ages 30-39 = 107 mL/min/1.73 sq.m. Ages 40-49 = 99 mL/min/1.73 sq.m. Ages 50-59 = 93 mL/min/1.73 sq.m. Ages 60-69 = 85 mL/min/1.73 sq.m. Ages 70+ = 75 mL/min/1.73 sq.m. Chronic Kidney Disease: Less than 60 mL/min/1.73 square meters End Stage Renal Disease: Less than 15 mL/min/1.73 square meters LAB GFRNO(LOINC) ml/min/1.73sqm GFR Non- 13 Result Comment: GFR Population mean for , Non- Americans Ages 20-29 = 116 mL/min/1.73 sq.m. Ages 30-39 = 107 mL/min/1.73 sq.m. Ages 40-49 = 99 mL/min/1.73 sq.m. Ages 50-59 = 93 mL/min/1.73 sq.m. Ages 60-69 = 85 mL/min/1.73 sq.m. Ages 70+ = 75 mL/min/1.73 sq.m. Chronic Kidney Disease: Less than 60 mL/min/1.73 square meters End Stage Renal Disease: Less than 15 mL/min/1.73 square meters Performed By: #### CBC, ADIFF, ANEU #### [facility] [address] [place], [place] [address] #### BMP, GFR #### [address] [address] Observed: 06/16/2018 Status: F Source: [facility] 7:40 AM [facility] REPOSITORY . MICRO - Microbiology PROCEDURE: Clostridium difficile PCR [^1 *1] SOURCE: Stool BODY SITE: COLLECTED DATE/TIME: 06/16/2018 07:40 EST RECEIVED DATE/TIME: 06/16/2018 18:16 EST START DATE/TIME: 06/16/2018 18:17 EST FREE TEXT SOURCE: FINAL REPORTS Final Report [] Verified Date/Time/Personnel: 06/16/2018 22:00 EST NEGATIVE. No tcdB gene DNA detected. Negative test results may occur from improper collection, handling or storage of specimen, technical error, or number of organisms below the analytical sensitivity of the test. Interpretive Data ^1: Clostridium difficile PCR As with all in vitro diagnostic tests, positive and negative predictive values are highly dependent on prevalence. The BD MAX C. difficile PCR Assay performance may vary depending on the prevalence and population tested. Performing Locations *1: This test was performed at: [address], [address] [place] [address] Performed By: #### CDP #### [address] [address] MG Collected: 06/15/2018 Status: F Source: [facility] 5:32 AM [facility] REPOSITORY TYPE CODE TESTS RESULT OUT OF REFERENCE UNITS RANGE LAB MG(LOINC) 1.8-2.4 mg/dL Low Magnesium Lvl 1.6 Performed By: #### MG, PHOS, CMP, GFR, PRALB #### [address] [address] PHOS Collected: 06/15/2018 Status: F Source: [facility] 5:32 AM [facility] REPOSITORY TYPE CODE TESTS RESULT OUT OF REFERENCE UNITS RANGE LAB PHOS(LOINC 2.3-4.1 mg/dL ) High Phosphorus 4.4 Performed By: #### MG, PHOS, CMP, GFR, PRALB #### [place] [id number] CMP Collected: 06/15/2018 Status: F Source: [facility] 5:32 AM [facility] REPOSITORY TYPE CODE TESTS RESULT OUT OF REFERENCE UNITS RANGE LAB GLU(LOINC) 83-110 mg/dL Glucose High Level 148 LAB NA(LOINC) 136-145 mmol/L Sodium Level 145 LAB K(LOINC) 3.5-5.1 mmol/L Potassium Level 4.1 LAB CL(LOINC) 98-107 mmol/L Chloride 107 LAB CO2(LOINC) 23-31 mmol/L CO2 27 LAB EBAL(LOINC mEq/L ) Electrolyte Balance 11.0 LAB BUN(LOINC) 7-18 mg/dL BUN High 29 LAB CRE(LOINC) 0.55-1.02 mg/dL Creatinine High Lvl (s) 2.14 LAB BC(LOINC) 7-27 ratio BUN/Creatinine 14 Ratio LAB CA(LOINC) 8.4-10.2 mg/dL Low Calcium Lvl 7.9 LAB PROT(LOINC 6.4-8.2 G/dL ) Low Total Protein 6.3 LAB ALB(LOINC) 3.4-4.8 G/dL Low Albumin Level 2.2 LAB GLB(LOINC) G/dL Globulin 4.1 LAB AG(LOINC) 1.1-2.5 ratio Low A/G Ratio 0.5 LAB BILT(LOINC 0.2-1.0 mg/dL ) Bili Total 0.5 LAB AP(LOINC) 40-135 U/L Alk Phos High 168 LAB AST(LOINC) 10-40 U/L AST/SGOT 16 LAB ALT(LOINC) 10-35 U/L ALT/SGPT 13 Performed By: #### MG, PHOS, CMP, GFR, PRALB #### [address] [address] .GFR Collected: 06/15/2018 Status: F Source: [facility] 5:32 AM [facility] REPOSITORY TYPE CODE TESTS RESULT OUT OF REFERENCE UNITS RANGE LAB GFRAA(LOINC ml/min/1.73 ) sqm GFR 27 Lao Result Comment: GFR Population mean for , Non- Americans Ages 20-29 = 116 mL/min/1.73 sq.m. Ages 30-39 = 107 mL/min/1.73 sq.m. Ages 40-49 = 99 mL/min/1.73 sq.m. Ages 50-59 = 93 mL/min/1.73 sq.m. Ages 60-69 = 85 mL/min/1.73 sq.m. Ages 70+ = 75 mL/min/1.73 sq.m. Chronic Kidney Disease: Less than 60 mL/min/1.73 square meters End Stage Renal Disease: Less than 15 mL/min/1.73 square meters LAB GFRNO(LOINC) ml/min/1.73sqm GFR Non- 23 Result Comment: GFR Population mean for , Non- Americans Ages 20-29 = 116 mL/min/1.73 sq.m. Ages 30-39 = 107 mL/min/1.73 sq.m. Ages 40-49 = 99 mL/min/1.73 sq.m. Ages 50-59 = 93 mL/min/1.73 sq.m. Ages 60-69 = 85 mL/min/1.73 sq.m. Ages 70+ = 75 mL/min/1.73 sq.m. Chronic Kidney Disease: Less than 60 mL/min/1.73 square meters End Stage Renal Disease: Less than 15 mL/min/1.73 square meters Performed By: #### MG, PHOS, CMP, GFR, PRALB #### [address] [address] PRALB Collected: 06/15/2018 Status: F Source: [facility] 5:32 AM [facility] REPOSITORY TYPE CODE TESTS RESULT OUT OF REFERENCE UNITS RANGE LAB PRALB(LOIN 18.0-38.0 mg/dL C) Low Prealbumin 10.1 Performed By: #### MG, PHOS, CMP, GFR, PRALB #### [address] [address] BMP Collected: 06/14/2018 Status: F Source: [facility] 5:23 AM [facility] REPOSITORY TYPE CODE TESTS RESULT OUT OF REFERENCE UNITS RANGE LAB GLU(LOINC) 83-110 mg/dL Glucose High Level 117 LAB NA(LOINC) 136-145 mmol/L Sodium High Level 147 LAB K(LOINC) 3.5-5.1 mmol/L Potassium Level 3.7 LAB CL(LOINC) 98-107 mmol/L Chloride High 110 LAB CO2(LOINC) 23-31 mmol/L CO2 28 LAB EBAL(LOINC mEq/L ) Electrolyte Balance 9.0 LAB BUN(LOINC) 7-18 mg/dL BUN High 22 LAB CRE(LOINC) 0.55-1.02 mg/dL Creatinine High Lvl (s) 1.41 LAB BC(LOINC) 7-27 ratio BUN/Creatinine 16 Ratio LAB CA(LOINC) 8.4-10.2 mg/dL Low Calcium Lvl 8.1 Performed By: #### BMP, GFR #### [place] [address] .GFR Collected: 06/14/2018 Status: F Source: [facility] 5:23 AM [facility] REPOSITORY TYPE CODE TESTS RESULT OUT OF REFERENCE UNITS RANGE LAB GFRAA(LOINC ml/min/1.73 ) sqm GFR 44 Lao Result Comment: GFR Population mean for , Non- Americans Ages 20-29 = 116 mL/min/1.73 sq.m. Ages 30-39 = 107 mL/min/1.73 sq.m. Ages 40-49 = 99 mL/min/1.73 sq.m. Ages 50-59 = 93 mL/min/1.73 sq.m. Ages 60-69 = 85 mL/min/1.73 sq.m. Ages 70+ = 75 mL/min/1.73 sq.m. Chronic Kidney Disease: Less than 60 mL/min/1.73 square meters End Stage Renal Disease: Less than 15 mL/min/1.73 square meters LAB GFRNO(LOINC) ml/min/1.73sqm GFR Non- 36 Result Comment: GFR Population mean for , Non- Americans Ages 20-29 = 116 mL/min/1.73 sq.m. Ages 30-39 = 107 mL/min/1.73 sq.m. Ages 40-49 = 99 mL/min/1.73 sq.m. Ages 50-59 = 93 mL/min/1.73 sq.m. Ages 60-69 = 85 mL/min/1.73 sq.m. Ages 70+ = 75 mL/min/1.73 sq.m. Chronic Kidney Disease: Less than 60 mL/min/1.73 square meters End Stage Renal Disease: Less than 15 mL/min/1.73 square meters Performed By: #### BMP, GFR #### [place] [address] Observed: 06/13/2018 Status: F Source: [facility] 2:59 PM [facility] REPOSITORY . MICRO - Microbiology PROCEDURE: Urine Culture [*1] SOURCE: Urine BODY SITE: COLLECTED DATE/TIME: 06/13/2018 14:59 EST RECEIVED DATE/TIME: 06/13/2018 20:31 EST START DATE/TIME: 06/13/2018 20:31 EST FREE TEXT SOURCE: FINAL REPORTS Final Report [] Verified Date/Time/Personnel: 06/15/2018 14:11 EST >100,000 organisms per mL Presumptive Linnea albicans Contact Microbiology within 72 hours if further identification is indicated ([id number]). [place] counts from a single urine are equivocal in determining infection vs. colonization of yeast. Multiple cultures at least 24 hours apart may be helpful in differentiating colonization from infection. PRELIMINARY REPORTS Preliminary Report [] Verified Date/Time/Personnel: 06/14/2018 14:30 EST Culture results pending. Performing Locations *1: This test was performed at: [address], [address] [place] [address] Performed By: #### CUR #### [place] [address] XR CHEST 1 VIEW Observed: 06/13/2018 Status: F Source: [facility] 9:00 AM [facility] REPOSITORY ORIGINAL XR CHEST 1 VIEW CLINICAL STATEMENT: hypoxia COMPARISON: 06/01/2018 FINDINGS:The cardiac contours aren't scattered by parenchymal and pleural changes. Atrial clip and postsurgical changes are noted. Asymmetric elevation of the RIGHT hemidiaphragm is present. Diffuse haz y opacification cephalization of the vasculature is present with worsening aeration. Findings are consistent with pulmonary edema and superimposed bilateral airspace opacities and pleural fluid. Degener ative change is present in visualized portions of the bony thorax. There is calcification in the aortic knob IMPRESSION:Worsening aeration Interpreted By: Shaye Deleon MD Preliminary Report By: Shaye Deleon MD Electronically Signed By: Shaye Deleon MD Dictated Date: 06/13/2018 9:18:47 AM Prelim Date: 06/13/2018 9:18:47 AM Sign Date: 06/13/2018 9:19:23 AM CBC Collected: 06/11/2018 Status: F Source: [facility] 12:50 PM [facility] REPOSITORY TYPE CODE TESTS RESULT OUT OF REFERENCE UNITS RANGE LAB WBC(LOINC) 4.50-10.80 10 3/mcL High WBC 13.40 LAB RBCCT(LOINC 4.10-5.30 10 6/mcL ) Low RBC 3.27 LAB HGB(LOINC) 12.0-16.0 G/dL Low Hgb 9.7 LAB HCT(LOINC) 34.0-46.0 % Low Hct 31.1 LAB MCV(LOINC) 80.0-99.0 fL MCV 95.2 LAB MCH(LOINC) 27.0-33.0 pg MCH 29.7 LAB MCHC(LOINC) 32.0-36.0 G/dL Low MCHC 31.2 LAB RDW(LOINC) 11.5-15.5 % High RDW 17.0 LAB PLT(LOINC) 150-450 10 3/mcL Low Platelet 140 LAB MPV(LOINC) 6.6-10.5 fL MPV 8.8 Performed By: #### CBC, ADIFF, ANEU, BMP, GFR #### [place] [address] .AUTO DIFF Collected: 06/11/2018 Status: F Source: [facility] 12:50 PM [facility] REPOSITORY TYPE CODE TESTS RESULT OUT OF REFERENCE UNITS RANGE LAB EUGENIE(LOINC) 50.0-75.0 % High Neutrophil % 89.9 LAB LYM(LOINC) 20.0-40.0 % Low Lymphocyte % 4.2 LAB MON(LOINC) 2.0-13.0 % Monocyte % 5.0 LAB EO(LOINC) 0.0-6.0 % Eosinophil % 0.2 LAB BAS(LOINC) 0.0-2.5 % Basophil % 0.7 LAB ABLYM(LOIN 0.90-4.32 10 3/mcL C) Low Lymphocyte, 0.60 Absolute LAB INCK(LOINC 0.09-1.40 10 3/mcL ) Monocyte, 0.70 Absolute LAB AEOS(LOINC 0.00-0.65 10 3/mcL ) Eosinophil, 0.00 Absolute LAB ABAS(LOINC 0.00-0.27 10 3/mcL ) Basophil, 0.10 Absolute Performed By: #### CBC, ADIFF, ANEU, BMP, GFR #### [place] [address] .NEUABS Collected: 06/11/2018 Status: F Source: [facility] 12:50 PM [facility] REPOSITORY TYPE CODE TESTS RESULT OUT OF REFERENCE UNITS RANGE LAB ANEU(LOINC) 2.25-8.10 10 3/mcL High Neutrophil, 12.00 Absolute Performed By: #### CBC, ADIFF, ANEU, BMP, GFR #### [place] [address] BMP Collected: 06/11/2018 Status: F Source: [facility] 12:50 PM [facility] REPOSITORY TYPE CODE TESTS RESULT OUT OF REFERENCE UNITS RANGE LAB GLU(LOINC) 82-115 mg/dL Glucose High Level 163 LAB NA(LOINC) 136-145 mEq/L Sodium High Level 146 LAB K(LOINC) 3.5-5.0 mEq/L Potassium Level 3.5 LAB CL(LOINC) 98-110 mEq/L Chloride High 112 LAB CO2(LOINC) 22-32 mEq/L CO2 28 LAB EBAL(LOINC 4.0-15.0 mEq/L ) Electrolyte Balance 6.0 LAB BUN(LOINC) 8.0-22.0 mg/dL BUN 22.0 LAB CRE(LOINC) 0.50-1.20 mg/dL Creatinine Lvl (s) 1.10 LAB BC(LOINC) 10.0-22.0 ratio BUN/Creatinine 20.0 Ratio LAB CA(LOINC) 8.4-10.1 mg/dL Low Calcium Lvl 7.4 Performed By: #### CBC, ADIFF, ANEU, BMP, GFR #### [place] [address] .GFR Collected: 06/11/2018 Status: F Source: [facility] 12:50 PM [facility] REPOSITORY TYPE CODE TESTS RESULT OUT OF REFERENCE UNITS RANGE LAB GFRAA(LOINC ml/min/1.73 ) sqm GFR 59 Lao Result Comment: GFR Population mean for , Non- Americans Ages 20-29 = 116 mL/min/1.73 sq.m. Ages 30-39 = 107 mL/min/1.73 sq.m. Ages 40-49 = 99 mL/min/1.73 sq.m. Ages 50-59 = 93 mL/min/1.73 sq.m. Ages 60-69 = 85 mL/min/1.73 sq.m. Ages 70+ = 75 mL/min/1.73 sq.m. Chronic Kidney Disease: Less than 60 mL/min/1.73 square meters End Stage Renal Disease: Less than 15 mL/min/1.73 square meters LAB GFRNO(LOINC) ml/min/1.73sqm GFR Non- 49 Result Comment: GFR Population mean for , Non- Americans Ages 20-29 = 116 mL/min/1.73 sq.m. Ages 30-39 = 107 mL/min/1.73 sq.m. Ages 40-49 = 99 mL/min/1.73 sq.m. Ages 50-59 = 93 mL/min/1.73 sq.m. Ages 60-69 = 85 mL/min/1.73 sq.m. Ages 70+ = 75 mL/min/1.73 sq.m. Chronic Kidney Disease: Less than 60 mL/min/1.73 square meters End Stage Renal Disease: Less than 15 mL/min/1.73 square meters Performed By: #### CBC, ADIFF, ANEU, BMP, GFR #### [place] [address] CBC Collected: 06/08/2018 Status: F Source: [facility] 9:42 AM [facility] REPOSITORY TYPE CODE TESTS RESULT OUT OF REFERENCE UNITS RANGE LAB WBC(LOINC) 4.50-10.80 10 3/mcL High WBC 13.60 LAB RBCCT(LOINC 4.10-5.30 10 6/mcL ) Low RBC 3.51 LAB HGB(LOINC) 12.0-16.0 G/dL Low Hgb 10.5 LAB HCT(LOINC) 34.0-46.0 % Low Hct 33.0 LAB MCV(LOINC) 80.0-99.0 fL MCV 94.0 LAB MCH(LOINC) 27.0-33.0 pg MCH 29.9 LAB MCHC(LOINC) 32.0-36.0 G/dL Low MCHC 31.9 LAB RDW(LOINC) 11.5-15.5 % High RDW 16.4 LAB PLT(LOINC) 150-450 10 3/mcL Platelet 164 LAB MPV(LOINC) 6.6-10.5 fL MPV 8.6 Performed By: #### CBC, ADIFF, ANEU, BMP, GFR #### [place] [address] .AUTO DIFF Collected: 06/08/2018 Status: F Source: [facility] 9:42 AM [facility] REPOSITORY TYPE CODE TESTS RESULT OUT OF REFERENCE UNITS RANGE LAB EUGENIE(LOINC) 50.0-75.0 % High Neutrophil % 90.7 LAB LYM(LOINC) 20.0-40.0 % Low Lymphocyte % 4.2 LAB MON(LOINC) 2.0-13.0 % Monocyte % 4.5 LAB EO(LOINC) 0.0-6.0 % Eosinophil % 0.3 LAB BAS(LOINC) 0.0-2.5 % Basophil % 0.3 LAB ABLYM(LOIN 0.90-4.32 10 3/mcL C) Low Lymphocyte, 0.60 Absolute LAB NICK(LOINC 0.09-1.40 10 3/mcL ) Monocyte, 0.60 Absolute LAB AEOS(LOINC 0.00-0.65 10 3/mcL ) Eosinophil, 0.00 Absolute LAB ABAS(LOINC 0.00-0.27 10 3/mcL ) Basophil, 0.00 Absolute Performed By: #### CBC, ADIFF, ANEU, BMP, GFR #### [place] [address] .NEUABS Collected: 06/08/2018 Status: F Source: [facility] 9:42 AM [facility] REPOSITORY TYPE CODE TESTS RESULT OUT OF REFERENCE UNITS RANGE LAB ANEU(LOINC) 2.25-8.10 10 3/mcL High Neutrophil, 12.40 Absolute Performed By: #### CBC, ADIFF, ANEU, BMP, GFR #### [place] [address] BMP Collected: 06/08/2018 Status: F Source: [facility] 9:42 AM [facility] REPOSITORY TYPE CODE TESTS RESULT OUT OF REFERENCE UNITS RANGE LAB GLU(LOINC) 82-115 mg/dL Glucose High Level 162 LAB NA(LOINC) 136-145 mEq/L Sodium Level 145 LAB K(LOINC) 3.5-5.0 mEq/L Potassium Level 4.2 LAB CL(LOINC) 98-110 mEq/L Chloride High 111 LAB CO2(LOINC) 22-32 mEq/L CO2 29 LAB EBAL(LOINC 4.0-15.0 mEq/L ) Electrolyte Balance 5.0 LAB BUN(LOINC) 8.0-22.0 mg/dL BUN 21.0 LAB CRE(LOINC) 0.50-1.20 mg/dL Creatinine Lvl (s) 1.04 LAB BC(LOINC) 10.0-22.0 ratio BUN/Creatinine 20.2 Ratio LAB CA(LOINC) 8.4-10.1 mg/dL Low Calcium Lvl 7.4 Performed By: #### CBC, ADIFF, ANEU, BMP, GFR #### [place] [address] .GFR Collected: 06/08/2018 Status: F Source: [facility] 9:42 AM [facility] REPOSITORY TYPE CODE TESTS RESULT OUT OF REFERENCE UNITS RANGE LAB GFRAA(LOINC ml/min/1.73 ) sqm GFR >60 Lao Result Comment: GFR Population mean for , Non- Americans Ages 20-29 = 116 mL/min/1.73 sq.m. Ages 30-39 = 107 mL/min/1.73 sq.m. Ages 40-49 = 99 mL/min/1.73 sq.m. Ages 50-59 = 93 mL/min/1.73 sq.m. Ages 60-69 = 85 mL/min/1.73 sq.m. Ages 70+ = 75 mL/min/1.73 sq.m. Chronic Kidney Disease: Less than 60 mL/min/1.73 square meters End Stage Renal Disease: Less than 15 mL/min/1.73 square meters LAB GFRNO(LOINC) ml/min/1.73sqm GFR Non- 52 Result Comment: GFR Population mean for , Non- Americans Ages 20-29 = 116 mL/min/1.73 sq.m. Ages 30-39 = 107 mL/min/1.73 sq.m. Ages 40-49 = 99 mL/min/1.73 sq.m. Ages 50-59 = 93 mL/min/1.73 sq.m. Ages 60-69 = 85 mL/min/1.73 sq.m. Ages 70+ = 75 mL/min/1.73 sq.m. Chronic Kidney Disease: Less than 60 mL/min/1.73 square meters End Stage Renal Disease: Less than 15 mL/min/1.73 square meters Performed By: #### CBC, ADIFF, ANEU, BMP, GFR #### [address] [address] BMP Collected: 06/07/2018 Status: F Source: [facility] 5:44 AM [facility] REPOSITORY TYPE CODE TESTS RESULT OUT OF REFERENCE UNITS RANGE LAB GLU(LOINC) 82-115 mg/dL Low Glucose Level 57 LAB NA(LOINC) 136-145 mEq/L Sodium High Level 148 LAB K(LOINC) 3.5-5.0 mEq/L Potassium Level 3.8 LAB CL(LOINC) 98-110 mEq/L Chloride High 114 LAB CO2(LOINC) 22-32 mEq/L CO2 26 LAB EBAL(LOINC 4.0-15.0 mEq/L ) Electrolyte Balance 8.0 LAB BUN(LOINC) 8.0-22.0 mg/dL BUN 18.0 LAB CRE(LOINC) 0.50-1.20 mg/dL Creatinine Lvl (s) 0.96 LAB BC(LOINC) 10.0-22.0 ratio BUN/Creatinine 18.8 Ratio LAB CA(LOINC) 8.4-10.1 mg/dL Low Calcium Lvl 7.5 Performed By: #### BMP, GFR #### [address] [address] .GFR Collected: 06/07/2018 Status: F Source: [place] [employer] [employer] [facility] 5:44 AM [facility] REPOSITORY TYPE CODE TESTS RESULT OUT OF REFERENCE UNITS RANGE LAB GFRAA(LOINC ml/min/1.73 ) sqm GFR >60 [place] Result Comment: GFR Population mean for , Non- Americans Ages 20-29 = 116 mL/min/1.73 sq.m. Ages 30-39 = 107 mL/min/1.73 sq.m. Ages 40-49 = 99 mL/min/1.73 sq.m. Ages 50-59 = 93 mL/min/1.73 sq.m. Ages 60-69 = 85 mL/min/1.73 sq.m. Ages 70+ = 75 mL/min/1.73 sq.m. Chronic Kidney Disease: Less than 60 mL/min/1.73 square meters End Stage Renal Disease: Less than 15 mL/min/1.73 square meters LAB GFRNO(LOINC) ml/min/1.73sqm GFR Non- 57 Result Comment: GFR Population mean for , Non- Americans Ages 20-29 = 116 mL/min/1.73 sq.m. Ages 30-39 = 107 mL/min/1.73 sq.m. Ages 40-49 = 99 mL/min/1.73 sq.m. Ages 50-59 = 93 mL/min/1.73 sq.m. Ages 60-69 = 85 mL/min/1.73 sq.m. Ages 70+ = 75 mL/min/1.73 sq.m. Chronic Kidney Disease: Less than 60 mL/min/1.73 square meters End Stage Renal Disease: Less than 15 mL/min/1.73 square meters Performed By: #### BMP, GFR #### [place] [id number] CBC Collected: 06/06/2018 Status: F Source: [facility] 6:06 AM [facility] REPOSITORY TYPE CODE TESTS RESULT OUT OF REFERENCE UNITS RANGE LAB WBC(LOINC) 4.50-10.80 10 3/mcL High WBC 11.20 LAB RBCCT(LOINC 4.10-5.30 10 6/mcL ) Low RBC 3.52 LAB HGB(LOINC) 12.0-16.0 G/dL Low Hgb 10.5 LAB HCT(LOINC) 34.0-46.0 % Low Hct 32.9 LAB MCV(LOINC) 80.0-99.0 fL MCV 93.2 LAB MCH(LOINC) 27.0-33.0 pg MCH 29.7 LAB MCHC(LOINC) 32.0-36.0 G/dL Low MCHC 31.9 LAB RDW(LOINC) 11.5-15.5 % High RDW 16.4 LAB PLT(LOINC) 150-450 10 3/mcL Low Platelet 138 LAB MPV(LOINC) 6.6-10.5 fL MPV 8.6 Performed By: #### CBC, ADIFF, ANEU, BMP, GFR #### [address] [address] .AUTO DIFF Collected: 06/06/2018 Status: F Source: [facility] 6:06 AM [facility] REPOSITORY TYPE CODE TESTS RESULT OUT OF REFERENCE UNITS RANGE LAB EUGENIE(LOINC) 50.0-75.0 % High Neutrophil % 89.9 LAB LYM(LOINC) 20.0-40.0 % Low Lymphocyte % 4.6 LAB MON(LOINC) 2.0-13.0 % Monocyte % 4.5 LAB EO(LOINC) 0.0-6.0 % Eosinophil % 0.6 LAB BAS(LOINC) 0.0-2.5 % Basophil % 0.4 LAB ABLYM(LOIN 0.90-4.32 10 3/mcL C) Low Lymphocyte, 0.50 Absolute LAB NICK(LOINC 0.09-1.40 10 3/mcL ) Monocyte, 0.50 Absolute LAB AEOS(LOINC 0.00-0.65 10 3/mcL ) Eosinophil, 0.10 Absolute LAB ABAS(LOINC 0.00-0.27 10 3/mcL ) Basophil, 0.00 Absolute Performed By: #### CBC, ADIFF, ANEU, BMP, GFR #### [address] [id number] .NEUABS Collected: 06/06/2018 Status: F Source: [facility] 6:06 AM [facility] REPOSITORY TYPE CODE TESTS RESULT OUT OF REFERENCE UNITS RANGE LAB ANEU(LOINC) 2.25-8.10 10 3/mcL High Neutrophil, 10.10 Absolute Performed By: #### CBC, ADIFF, ANEU, BMP, GFR #### [place] [id number] BMP Collected: 06/06/2018 Status: F Source: [facility] 6:06 AM [facility] REPOSITORY TYPE CODE TESTS RESULT OUT OF REFERENCE UNITS RANGE LAB GLU(LOINC) 82-115 mg/dL Low Glucose Level 74 LAB NA(LOINC) 136-145 mEq/L Sodium High Level 146 LAB K(LOINC) 3.5-5.0 mEq/L Potassium Level 3.8 LAB CL(LOINC) 98-110 mEq/L Chloride High 114 LAB CO2(LOINC) 22-32 mEq/L CO2 26 LAB EBAL(LOINC 4.0-15.0 mEq/L ) Electrolyte Balance 6.0 LAB BUN(LOINC) 8.0-22.0 mg/dL BUN 11.0 LAB CRE(LOINC) 0.50-1.20 mg/dL Creatinine Lvl (s) 1.04 LAB BC(LOINC) 10.0-22.0 ratio BUN/Creatinine 10.6 Ratio LAB CA(LOINC) 8.4-10.1 mg/dL Low Calcium Lvl 7.5 Performed By: #### CBC, ADIFF, ANEU, BMP, GFR #### [place] [address] .GFR Collected: 06/06/2018 Status: F Source: [facility] 6:06 AM [facility] REPOSITORY TYPE CODE TESTS RESULT OUT OF REFERENCE UNITS RANGE LAB GFRAA(LOINC ml/min/1.73 ) sqm GFR >60 Lao Result Comment: GFR Population mean for , Non- Americans Ages 20-29 = 116 mL/min/1.73 sq.m. Ages 30-39 = 107 mL/min/1.73 sq.m. Ages 40-49 = 99 mL/min/1.73 sq.m. Ages 50-59 = 93 mL/min/1.73 sq.m. Ages 60-69 = 85 mL/min/1.73 sq.m. Ages 70+ = 75 mL/min/1.73 sq.m. Chronic Kidney Disease: Less than 60 mL/min/1.73 square meters End Stage Renal Disease: Less than 15 mL/min/1.73 square meters LAB GFRNO(LOINC) ml/min/1.73sqm GFR Non- 52 Result Comment: GFR Population mean for , Non- Americans Ages 20-29 = 116 mL/min/1.73 sq.m. Ages 30-39 = 107 mL/min/1.73 sq.m. Ages 40-49 = 99 mL/min/1.73 sq.m. Ages 50-59 = 93 mL/min/1.73 sq.m. Ages 60-69 = 85 mL/min/1.73 sq.m. Ages 70+ = 75 mL/min/1.73 sq.m. Chronic Kidney Disease: Less than 60 mL/min/1.73 square meters End Stage Renal Disease: Less than 15 mL/min/1.73 square meters Performed By: #### CBC, ADIFF, ANEU, BMP, GFR #### [place] [address] Observed: 06/05/2018 Status: F Source: [facility] 11:38 AM [facility] REPOSITORY . MICRO - Microbiology PROCEDURE: Blood Culture (bacterial) [*1] SOURCE: Blood BODY SITE: COLLECTED DATE/TIME: 06/05/2018 11:38 EST RECEIVED DATE/TIME: 06/05/2018 11:49 EST START DATE/TIME: 06/05/2018 11:49 EST FREE TEXT SOURCE: FINAL REPORTS Final Report [] Verified Date/Time/Personnel: 06/10/2018 11:59 EST Blood Culture: No Growth at 5 days. PRELIMINARY REPORTS Preliminary Report [] Verified Date/Time/Personnel: 06/05/2018 12:59 EST Culture has been received in lab and is no growth to date. Routine cultures are held for 5 days. Performing Locations *1: This test was performed at: [facility], [address] [place] [address], [address] [place] [address] Performed By: #### CBL #### [place] [address] Observed: 06/05/2018 Status: F Source: [facility] 10:53 AM [facility] REPOSITORY . MICRO - Microbiology PROCEDURE: Blood Culture (bacterial and fungal) [*1] SOURCE: Blood BODY SITE: COLLECTED DATE/TIME: 06/05/2018 10:53 EST RECEIVED DATE/TIME: 06/05/2018 11:33 EST START DATE/TIME: 06/05/2018 11:33 EST FREE TEXT SOURCE: FINAL REPORTS Final Report [] Verified Date/Time/Personnel: 07/04/2018 16:34 EST Blood Culture with fungus: No growth at 4 weeks. PRELIMINARY REPORTS Preliminary Report [] Verified Date/Time/Personnel: 06/05/2018 12:59 EST Culture has been received in lab and is no growth to date. Culture will be held for four weeks. Performing Locations *1: This test was performed at: [facility], [address] [place] [address], [facility] , [facility] Performed By: #### CFUNGB #### [place] [address] BMP Collected: 06/05/2018 Status: F Source: [facility] 4:23 AM [facility] REPOSITORY TYPE CODE TESTS RESULT OUT OF REFERENCE UNITS RANGE LAB GLU(LOINC) 82-115 mg/dL Glucose High Level 222 LAB NA(LOINC) 136-145 mEq/L Sodium Level 144 LAB K(LOINC) 3.5-5.0 mEq/L Potassium Level 3.5 LAB CL(LOINC) 98-110 mEq/L Chloride High 111 LAB CO2(LOINC) 22-32 mEq/L CO2 27 LAB EBAL(LOINC 4.0-15.0 mEq/L ) Electrolyte Balance 6.0 LAB BUN(LOINC) 8.0-22.0 mg/dL BUN 16.0 LAB CRE(LOINC) 0.50-1.20 mg/dL Creatinine Lvl (s) 1.01 LAB BC(LOINC) 10.0-22.0 ratio BUN/Creatinine 15.8 Ratio LAB CA(LOINC) 8.4-10.1 mg/dL Low Calcium Lvl 7.5 Performed By: #### BMP, GFR #### [place] [address] .GFR Collected: 06/05/2018 Status: F Source: [facility] 4:23 AM [facility] REPOSITORY TYPE CODE TESTS RESULT OUT OF REFERENCE UNITS RANGE LAB GFRAA(LOINC ml/min/1.73 ) sqm GFR >60 Lao Result Comment: GFR Population mean for , Non- Americans Ages 20-29 = 116 mL/min/1.73 sq.m. Ages 30-39 = 107 mL/min/1.73 sq.m. Ages 40-49 = 99 mL/min/1.73 sq.m. Ages 50-59 = 93 mL/min/1.73 sq.m. Ages 60-69 = 85 mL/min/1.73 sq.m. Ages 70+ = 75 mL/min/1.73 sq.m. Chronic Kidney Disease: Less than 60 mL/min/1.73 square meters End Stage Renal Disease: Less than 15 mL/min/1.73 square meters LAB GFRNO(LOINC) ml/min/1.73sqm GFR Non- 54 Result Comment: GFR Population mean for , Non- Americans Ages 20-29 = 116 mL/min/1.73 sq.m. Ages 30-39 = 107 mL/min/1.73 sq.m. Ages 40-49 = 99 mL/min/1.73 sq.m. Ages 50-59 = 93 mL/min/1.73 sq.m. Ages 60-69 = 85 mL/min/1.73 sq.m. Ages 70+ = 75 mL/min/1.73 sq.m. Chronic Kidney Disease: Less than 60 mL/min/1.73 square meters End Stage Renal Disease: Less than 15 mL/min/1.73 square meters Performed By: #### BMP, GFR #### [place] [address] CBC Collected: 06/03/2018 Status: F Source: [facility] 6:24 AM [facility] REPOSITORY TYPE CODE TESTS RESULT OUT OF REFERENCE UNITS RANGE LAB WBC(LOINC) 4.50-10.80 10 3/mcL High WBC 15.50 LAB RBCCT(LOINC 4.10-5.30 10 6/mcL ) Low RBC 3.12 LAB HGB(LOINC) 12.0-16.0 G/dL Low Hgb 9.3 LAB HCT(LOINC) 34.0-46.0 % Low Hct 28.6 LAB MCV(LOINC) 80.0-99.0 fL MCV 91.7 LAB MCH(LOINC) 27.0-33.0 pg MCH 29.7 LAB MCHC(LOINC) 32.0-36.0 G/dL MCHC 32.4 LAB RDW(LOINC) 11.5-15.5 % RDW 15.4 LAB PLT(LOINC) 150-450 10 3/mcL Low Platelet 82 LAB MPV(LOINC) 6.6-10.5 fL MPV 9.2 Performed By: #### CBC, ADIFF, ANEU, BMP, GFR #### [place] [address] .AUTO DIFF Collected: 06/03/2018 Status: F Source: [facility] 6:24 AM [facility] REPOSITORY TYPE CODE TESTS RESULT OUT OF REFERENCE UNITS RANGE LAB EUGENIE(LOINC) 50.0-75.0 % High Neutrophil % 90.6 LAB LYM(LOINC) 20.0-40.0 % Low Lymphocyte % 3.9 LAB MON(LOINC) 2.0-13.0 % Monocyte % 5.0 LAB EO(LOINC) 0.0-6.0 % Eosinophil % 0.3 LAB BAS(LOINC) 0.0-2.5 % Basophil % 0.2 LAB ABLYM(LOIN 0.90-4.32 10 3/mcL C) Low Lymphocyte, 0.60 Absolute LAB NICK(LOINC 0.09-1.40 10 3/mcL ) Monocyte, 0.80 Absolute LAB AEOS(LOINC 0.00-0.65 10 3/mcL ) Eosinophil, 0.10 Absolute LAB ABAS(LOINC 0.00-0.27 10 3/mcL ) Basophil, 0.00 Absolute Performed By: #### CBC, ADIFF, ANEU, BMP, GFR #### [place] [address] .NEUABS Collected: 06/03/2018 Status: F Source: [facility] 6:24 AM [facility] REPOSITORY TYPE CODE TESTS RESULT OUT OF REFERENCE UNITS RANGE LAB ANEU(LOINC) 2.25-8.10 10 3/mcL High Neutrophil, 14.00 Absolute Performed By: #### CBC, ADIFF, ANEU, BMP, GFR #### [place] [address] BMP Collected: 06/03/2018 Status: F Source: [facility] 6:24 AM [facility] REPOSITORY TYPE CODE TESTS RESULT OUT OF REFERENCE UNITS RANGE LAB GLU(LOINC) 82-115 mg/dL Glucose High Level 176 LAB NA(LOINC) 136-145 mEq/L Sodium Level 142 LAB K(LOINC) 3.5-5.0 mEq/L Potassium Level 3.6 LAB CL(LOINC) 98-110 mEq/L Chloride 110 LAB CO2(LOINC) 22-32 mEq/L CO2 26 LAB EBAL(LOINC 4.0-15.0 mEq/L ) Electrolyte Balance 6.0 LAB BUN(LOINC) 8.0-22.0 mg/dL BUN High 27.0 LAB CRE(LOINC) 0.50-1.20 mg/dL Creatinine High Lvl (s) 1.47 LAB BC(LOINC) 10.0-22.0 ratio BUN/Creatinine 18.4 Ratio LAB CA(LOINC) 8.4-10.1 mg/dL Low Calcium Lvl 7.4 Performed By: #### CBC, ADIFF, ANEU, BMP, GFR #### [facility] [address] [place] [address] .GFR Collected: 06/03/2018 Status: F Source: [facility] 6:24 AM [facility] REPOSITORY TYPE CODE TESTS RESULT OUT OF REFERENCE UNITS RANGE LAB GFRAA(LOINC ml/min/1.73 ) sqm GFR 42 Lao Result Comment: GFR Population mean for , Non- Americans Ages 20-29 = 116 mL/min/1.73 sq.m. Ages 30-39 = 107 mL/min/1.73 sq.m. Ages 40-49 = 99 mL/min/1.73 sq.m. Ages 50-59 = 93 mL/min/1.73 sq.m. Ages 60-69 = 85 mL/min/1.73 sq.m. Ages 70+ = 75 mL/min/1.73 sq.m. Chronic Kidney Disease: Less than 60 mL/min/1.73 square meters End Stage Renal Disease: Less than 15 mL/min/1.73 square meters LAB GFRNO(LOINC) ml/min/1.73sqm GFR Non- 35 Result Comment: GFR Population mean for , Non- Americans Ages 20-29 = 116 mL/min/1.73 sq.m. Ages 30-39 = 107 mL/min/1.73 sq.m. Ages 40-49 = 99 mL/min/1.73 sq.m. Ages 50-59 = 93 mL/min/1.73 sq.m. Ages 60-69 = 85 mL/min/1.73 sq.m. Ages 70+ = 75 mL/min/1.73 sq.m. Chronic Kidney Disease: Less than 60 mL/min/1.73 square meters End Stage Renal Disease: Less than 15 mL/min/1.73 square meters Performed By: #### CBC, ADIFF, ANEU, BMP, GFR #### [address] [address] CBC Collected: 06/02/2018 Status: F Source: [facility] 5:20 AM [facility] REPOSITORY TYPE CODE TESTS RESULT OUT OF REFERENCE UNITS RANGE LAB WBC(LOINC) 4.50-10.80 10 3/mcL High WBC 16.40 LAB RBCCT(LOINC 4.10-5.30 10 6/mcL ) Low RBC 3.16 LAB HGB(LOINC) 12.0-16.0 G/dL Low Hgb 9.3 LAB HCT(LOINC) 34.0-46.0 % Low Hct 29.0 LAB MCV(LOINC) 80.0-99.0 fL MCV 91.7 LAB MCH(LOINC) 27.0-33.0 pg MCH 29.5 LAB MCHC(LOINC) 32.0-36.0 G/dL MCHC 32.2 LAB RDW(LOINC) 11.5-15.5 % RDW 15.5 LAB PLT(LOINC) 150-450 10 3/mcL Low Platelet 68 LAB MPV(LOINC) 6.6-10.5 fL MPV 9.6 Performed By: #### CBC, ADIFF, ANEU, BMP, MG, PHOS, GFR #### [address] [address] .AUTO DIFF Collected: 06/02/2018 Status: F Source: [facility] 5:20 AM [facility] REPOSITORY TYPE CODE TESTS RESULT OUT OF REFERENCE UNITS RANGE LAB EUGENIE(LOINC) 50.0-75.0 % High Neutrophil % 92.9 LAB LYM(LOINC) 20.0-40.0 % Low Lymphocyte % 2.5 LAB MON(LOINC) 2.0-13.0 % Monocyte % 4.2 LAB EO(LOINC) 0.0-6.0 % Eosinophil % 0.3 LAB BAS(LOINC) 0.0-2.5 % Basophil % 0.1 LAB ABLYM(LOIN 0.90-4.32 10 3/mcL C) Low Lymphocyte, 0.40 Absolute LAB NICK(LOINC 0.09-1.40 10 3/mcL ) Monocyte, 0.70 Absolute LAB AEOS(LOINC 0.00-0.65 10 3/mcL ) Eosinophil, 0.00 Absolute LAB ABAS(LOINC 0.00-0.27 10 3/mcL ) Basophil, 0.00 Absolute Performed By: #### CBC, ADIFF, ANEU, BMP, MG, PHOS, GFR #### [address] [address] .NEUABS Collected: 06/02/2018 Status: F Source: [facility] 5:20 AM [facility] REPOSITORY TYPE CODE TESTS RESULT OUT OF REFERENCE UNITS RANGE LAB ANEU(LOINC) 2.25-8.10 10 3/mcL High Neutrophil, 15.30 Absolute Performed By: #### CBC, ADIFF, ANEU, BMP, MG, PHOS, GFR #### [place] [address] BMP Collected: 06/02/2018 Status: F Source: [facility] 5:20 AM [facility] REPOSITORY TYPE CODE TESTS RESULT OUT OF REFERENCE UNITS RANGE LAB GLU(LOINC) 82-115 mg/dL Glucose High Level 160 LAB NA(LOINC) 136-145 mEq/L Sodium Level 140 LAB K(LOINC) 3.5-5.0 mEq/L Low Potassium Level 3.4 LAB CL(LOINC) 98-110 mEq/L Chloride 106 LAB CO2(LOINC) 22-32 mEq/L CO2 24 LAB EBAL(LOINC 4.0-15.0 mEq/L ) Electrolyte Balance 10.0 LAB BUN(LOINC) 8.0-22.0 mg/dL BUN High 35.0 LAB CRE(LOINC) 0.50-1.20 mg/dL Creatinine High Lvl (s) 1.73 LAB BC(LOINC) 10.0-22.0 ratio BUN/Creatinine 20.2 Ratio LAB CA(LOINC) 8.4-10.1 mg/dL Low Calcium Lvl 7.5 Performed By: #### CBC, ADIFF, ANEU, BMP, MG, PHOS, GFR #### [address] [address] MG Collected: 06/02/2018 Status: F Source: [facility] 5:20 AM [facility] REPOSITORY TYPE CODE TESTS RESULT OUT OF REFERENCE UNITS RANGE LAB MG(LOINC) 1.6-2.4 mg/dL Magnesium Lvl 2.0 Performed By: #### CBC, ADIFF, ANEU, BMP, MG, PHOS, GFR #### [address] [address] PHOS Collected: 06/02/2018 Status: F Source: [facility] 5:20 AM [facility] REPOSITORY TYPE CODE TESTS RESULT OUT OF REFERENCE UNITS RANGE LAB PHOS(LOINC 2.5-4.5 mg/dL ) Phosphorus 3.4 Performed By: #### CBC, ADIFF, ANEU, BMP, MG, PHOS, GFR #### [address] [address] .GFR Collected: 06/02/2018 Status: F Source: [facility] 5:20 AM [facility] REPOSITORY TYPE CODE TESTS RESULT OUT OF REFERENCE UNITS RANGE LAB GFRAA(LOINC ml/min/1.73 ) sqm GFR 35 Lao Result Comment: GFR Population mean for , Non- Americans Ages 20-29 = 116 mL/min/1.73 sq.m. Ages 30-39 = 107 mL/min/1.73 sq.m. Ages 40-49 = 99 mL/min/1.73 sq.m. Ages 50-59 = 93 mL/min/1.73 sq.m. Ages 60-69 = 85 mL/min/1.73 sq.m. Ages 70+ = 75 mL/min/1.73 sq.m. Chronic Kidney Disease: Less than 60 mL/min/1.73 square meters End Stage Renal Disease: Less than 15 mL/min/1.73 square meters LAB GFRNO(LOINC) ml/min/1.73sqm GFR Non- 29 Result Comment: GFR Population mean for , Non- Americans Ages 20-29 = 116 mL/min/1.73 sq.m. Ages 30-39 = 107 mL/min/1.73 sq.m. Ages 40-49 = 99 mL/min/1.73 sq.m. Ages 50-59 = 93 mL/min/1.73 sq.m. Ages 60-69 = 85 mL/min/1.73 sq.m. Ages 70+ = 75 mL/min/1.73 sq.m. Chronic Kidney Disease: Less than 60 mL/min/1.73 square meters End Stage Renal Disease: Less than 15 mL/min/1.73 square meters Performed By: #### CBC, ADIFF, ANEU, BMP, MG, PHOS, GFR #### [place] [id number] [place] [address] TROPI Collected: 06/01/2018 Status: F Source: [facility] 5:36 PM [facility] REPOSITORY TYPE CODE TESTS RESULT OUT OF REFERENCE UNITS RANGE LAB TROPI(LOINC 0.000-0.040 ng/mL ) High Troponin I 0.097 Result Comment: Troponin I reference ranges (03/17/14): 0.00-0.040 ng/mL Negative and non-diagnostic. >0.040 ng/mL Consistent with cardiac damage, increased clinical risk and possibility of myocardial infarction. Serial measurements, a rise & fall in test results, clinical history, appropriate symptoms and/or ECG changes may help assess possibility of LA. *Other non-acute coronary syndrome conditions such as CHF, myocarditis, pulmonary emboli, sepsis and cardiac surgery could result in myocardial damage and increased troponin levels. Performed By: #### TROPI #### [address] [address] XR CHEST 1 VIEW Observed: 06/01/2018 Status: F Source: [facility] 5:18 PM [facility] REPOSITORY ORIGINAL XR CHEST 1 VIEW CLINICAL STATEMENT: Shortness of breath. COMPARISON: 06/01/2018 FINDINGS: Median sternotomy and LEFT atrial appendage clip is present. There are small to moderate bilateral RIGHT greater than LEFT pleural effusions. Upper lungs are clear. Heart and mediastinal silho uette are unremarkable. There is a RIGHT IJ catheter. IMPRESSION: Bilateral pleural effusions. Interpreted By: Quintin Rich MD Preliminary Report By: Quintin Rich MD Electronically Signed By: Quintin Rich MD Dictated Date: 06/01/2018 6:06:04 PM Prelim Date: 06/01/2018 6:06:04 PM Sign Date: 06/01/2018 6:08:02 PM Collected: 06/01/2018 Status: F Source: [place] [facility] 12:52 PM [facility] REPOSITORY TYPE CODE TESTS RESULT OUT OF RANGE REFERENCE UNITS LAB HGB(LOINC) 12.0-16.0 G/dL Low Hgb 9.4 LAB HCT(LOINC) 34.0-46.0 % Low Hct 29.4 Performed By: #### HH #### [place] [address] LAC Collected: 06/01/2018 Status: F Source: [facility] 8:17 AM [facility] REPOSITORY TYPE CODE TESTS RESULT OUT OF REFERENCE UNITS RANGE LAB LAC(LOINC) 0.2-2.0 mmol/L Lactic Acid 1.4 Lvl Performed By: #### LAC #### [place] [address] TABO Collected: 06/01/2018 Status: F Source: [facility] 8:17 AM [facility] REPOSITORY TYPE CODE TESTS RESULT OUT OF RANGE REFERENCE UNITS LAB ABORH(LOINC ) Unknown ABO/Rh O NEG Interp Performed By: #### ABORH, ANTIS #### [place] [address] TABS Collected: 06/01/2018 Status: F Source: [facility] 8:17 AM [facility] REPOSITORY TYPE CODE TESTS RESULT OUT OF REFERENCE UNITS RANGE LAB ANST(LOINC ) Antibody Negative ABSC Screen Tango Performed By: #### ABORH, ANTIS #### [place] [address] RBC (PRODUCT) Collected: 06/01/2018 Status: F Source: [facility] 7:12 AM [facility] REPOSITORY TYPE CODE TESTS RESULT OUT OF REFERENCE UNITS RANGE LAB RBCPR(LOINC ) RBC Product RBC Ready Ready for Pickup Performed By: #### RBCP #### [place] [address] LAC Collected: 06/01/2018 Status: F Source: [facility] 5:53 AM [facility] REPOSITORY TYPE CODE TESTS RESULT OUT OF REFERENCE UNITS RANGE LAB LAC(LOINC) 0.2-2.0 mmol/L Lactic Acid 1.3 Lvl Performed By: #### LAC #### [place] [address] LAC Collected: 06/01/2018 Status: F Source: [facility] 3:48 AM [facility] REPOSITORY TYPE CODE TESTS RESULT OUT OF REFERENCE UNITS RANGE LAB LAC(LOINC) 0.2-2.0 mmol/L Lactic Acid 1.9 Lvl Performed By: #### LAC, CBC, ADIFF, ANEU, TROPI, BMP, MG, GFR #### [address] [address] CBC Collected: 06/01/2018 Status: F Source: [facility] 3:48 AM [facility] REPOSITORY TYPE CODE TESTS RESULT OUT OF REFERENCE UNITS RANGE LAB WBC(LOINC) 4.50-10.80 10 3/mcL High WBC 16.60 LAB RBCCT(LOINC 4.10-5.30 10 6/mcL ) Low RBC 2.67 LAB HGB(LOINC) 12.0-16.0 G/dL Low Hgb 7.8 LAB HCT(LOINC) 34.0-46.0 % Low Hct 24.3 LAB MCV(LOINC) 80.0-99.0 fL MCV 91.0 LAB MCH(LOINC) 27.0-33.0 pg MCH 29.1 LAB MCHC(LOINC) 32.0-36.0 G/dL MCHC 32.0 LAB RDW(LOINC) 11.5-15.5 % High RDW 16.2 LAB PLT(LOINC) 150-450 10 3/mcL Low Platelet 86 LAB MPV(LOINC) 6.6-10.5 fL MPV 9.7 Performed By: #### LAC, CBC, ADIFF, ANEU, TROPI, BMP, MG, GFR #### [address] [address] .AUTO DIFF Collected: 06/01/2018 Status: F Source: [facility] 3:48 AM [facility] REPOSITORY TYPE CODE TESTS RESULT OUT OF REFERENCE UNITS RANGE LAB EUGENIE(LOINC) 50.0-75.0 % High Neutrophil % 92.6 LAB LYM(LOINC) 20.0-40.0 % Low Lymphocyte % 2.7 LAB MON(LOINC) 2.0-13.0 % Monocyte % 4.2 LAB EO(LOINC) 0.0-6.0 % Eosinophil % 0.3 LAB BAS(LOINC) 0.0-2.5 % Basophil % 0.2 LAB ABLYM(LOIN 0.90-4.32 10 3/mcL C) Low Lymphocyte, 0.50 Absolute LAB NICK(LOINC 0.09-1.40 10 3/mcL ) Monocyte, 0.70 Absolute LAB AEOS(LOINC 0.00-0.65 10 3/mcL ) Eosinophil, 0.10 Absolute LAB ABAS(LOINC 0.00-0.27 10 3/mcL ) Basophil, 0.00 Absolute Performed By: #### LAC, CBC, ADIFF, ANEU, TROPI, BMP, MG, GFR #### [place] [address] .NEUABS Collected: 06/01/2018 Status: F Source: [facility] 3:48 AM [facility] REPOSITORY TYPE CODE TESTS RESULT OUT OF REFERENCE UNITS RANGE LAB ANEU(LOINC) 2.25-8.10 10 3/mcL High Neutrophil, 15.40 Absolute Performed By: #### LAC, CBC, ADIFF, ANEU, TROPI, BMP, MG, GFR #### [place] [address] TROPI Collected: 06/01/2018 Status: F Source: [facility] 3:48 AM [facility] REPOSITORY TYPE CODE TESTS RESULT OUT OF REFERENCE UNITS RANGE LAB TROPI(LOINC 0.000-0.040 ng/mL ) High Troponin I 0.126 Result Comment: Troponin I reference ranges (03/17/14): 0.00-0.040 ng/mL Negative and non-diagnostic. >0.040 ng/mL Consistent with cardiac damage, increased clinical risk and possibility of myocardial infarction. Serial measurements, a rise & fall in test results, clinical history, appropriate symptoms and/or ECG changes may help assess possibility of LA. *Other non-acute coronary syndrome conditions such as CHF, myocarditis, pulmonary emboli, sepsis and cardiac surgery could result in myocardial damage and increased troponin levels. Performed By: #### LAC, CBC, ADIFF, ANEU, TROPI, BMP, MG, GFR #### [place] [address] BMP Collected: 06/01/2018 Status: F Source: [facility] 3:48 AM [facility] REPOSITORY TYPE CODE TESTS RESULT OUT OF REFERENCE UNITS RANGE LAB GLU(LOINC) 82-115 mg/dL Glucose High Level 329 LAB NA(LOINC) 136-145 mEq/L Sodium Level 138 LAB K(LOINC) 3.5-5.0 mEq/L Low Potassium Level 3.3 LAB CL(LOINC) 98-110 mEq/L Chloride 102 LAB CO2(LOINC) 22-32 mEq/L CO2 25 LAB EBAL(LOINC 4.0-15.0 mEq/L ) Electrolyte Balance 11.0 LAB BUN(LOINC) 8.0-22.0 mg/dL BUN High 42.0 LAB CRE(LOINC) 0.50-1.20 mg/dL Creatinine High Lvl (s) 1.82 LAB BC(LOINC) 10.0-22.0 ratio High BUN/Creatinine 23.1 Ratio LAB CA(LOINC) 8.4-10.1 mg/dL Low Calcium Lvl 7.0 Performed By: #### LAC, CBC, ADIFF, ANEU, TROPI, BMP, MG, GFR #### [place] [address] MG Collected: 06/01/2018 Status: F Source: [place] [facility] 3:48 AM [facility] REPOSITORY TYPE CODE TESTS RESULT OUT OF REFERENCE UNITS RANGE LAB MG(LOINC) 1.6-2.4 mg/dL Magnesium Lvl 2.3 Performed By: #### LAC, CBC, ADIFF, ANEU, TROPI, BMP, MG, GFR #### [place] [address] .GFR Collected: 06/01/2018 Status: F Source: [facility] 3:48 AM [facility] REPOSITORY TYPE CODE TESTS RESULT OUT OF REFERENCE UNITS RANGE LAB GFRAA(LOINC ml/min/1.73 ) sqm GFR 33 Lao Result Comment: GFR Population mean for , Non- Americans Ages 20-29 = 116 mL/min/1.73 sq.m. Ages 30-39 = 107 mL/min/1.73 sq.m. Ages 40-49 = 99 mL/min/1.73 sq.m. Ages 50-59 = 93 mL/min/1.73 sq.m. Ages 60-69 = 85 mL/min/1.73 sq.m. Ages 70+ = 75 mL/min/1.73 sq.m. Chronic Kidney Disease: Less than 60 mL/min/1.73 square meters End Stage Renal Disease: Less than 15 mL/min/1.73 square meters LAB GFRNO(LOINC) ml/min/1.73sqm GFR Non- 27 Result Comment: GFR Population mean for , Non- Americans Ages 20-29 = 116 mL/min/1.73 sq.m. Ages 30-39 = 107 mL/min/1.73 sq.m. Ages 40-49 = 99 mL/min/1.73 sq.m. Ages 50-59 = 93 mL/min/1.73 sq.m. Ages 60-69 = 85 mL/min/1.73 sq.m. Ages 70+ = 75 mL/min/1.73 sq.m. Chronic Kidney Disease: Less than 60 mL/min/1.73 square meters End Stage Renal Disease: Less than 15 mL/min/1.73 square meters Performed By: #### LAC, CBC, ADIFF, ANEU, TROPI, BMP, MG, GFR #### [place] [id number] LAC Collected: 06/01/2018 Status: F Source: [facility] 1:31 AM [facility] REPOSITORY TYPE CODE TESTS RESULT OUT OF REFERENCE UNITS RANGE LAB LAC(LOINC) 0.2-2.0 mmol/L Lactic Acid 1.0 Lvl Performed By: #### LAC, MG, PHOS, MYCO #### [place] [id number] MG Collected: 06/01/2018 Status: F Source: [facility] 1:31 AM [facility] REPOSITORY TYPE CODE TESTS RESULT OUT OF REFERENCE UNITS RANGE LAB MG(LOINC) 1.6-2.4 mg/dL High Magnesium Lvl 2.5 Performed By: #### LAC, MG, PHOS, MYCO #### [place] [id number] PHOS Collected: 06/01/2018 Status: F Source: [facility] 1:31 AM [facility] REPOSITORY TYPE CODE TESTS RESULT OUT OF REFERENCE UNITS RANGE LAB PHOS(LOINC 2.5-4.5 mg/dL ) Phosphorus 3.3 Performed By: #### LAC, MG, PHOS, MYCO #### [place] [id number] MYCO Collected: 06/01/2018 Status: F Source: [facility] 1:31 AM [facility] REPOSITORY TYPE CODE TESTS RESULT OUT OF REFERENCE UNITS RANGE LAB AMYCM(LOIN C) Mycoplasma IgM Negative Result Comment: INTERPRETATION OF MYCOPLASMA BY EIA (Effective 07/15/04): Negative No detectable antibodies to M. pneumoniae. Indicates absence of current or previous infection. Positive Reactive for antibodies to M. pneumoniae. Indicates a past or recent infection. Equivocal Equivocal for antibodies to M. pneumoniae. Repeat testing by an alternate method suggested. LAB [facility]) Mycoplasma IgG Neg Result Comment: INTERPRETATION OF MYCOPLASMA BY EIA (Effective 07/15/04): Negative No detectable antibodies to M. pneumoniae. Indicates absence of current or previous infection. Positive Reactive for antibodies to M. pneumoniae. Indicates a past or recent infection. Equivocal Equivocal for antibodies to M. pneumoniae. Repeat testing by an alternate method suggested. Performed By: #### LAC, MG, PHOS, MYCO #### [place] [address] Observed: 06/01/2018 Status: F Source: [facility] 1:31 AM [facility] REPOSITORY . MICRO - Microbiology PROCEDURE: Legionella Urine Ag [*1] SOURCE: Urine BODY SITE: COLLECTED DATE/TIME: 06/01/2018 01:31 EST RECEIVED DATE/TIME: 06/01/2018 01:51 EST START DATE/TIME: 06/01/2018 01:51 EST FREE TEXT SOURCE: FINAL REPORTS Final Report [] Verified Date/Time/Personnel: 06/01/2018 06:29 EST Presumptive negative for L. pneumophila serogroup 1 antigen in urine, suggesting no recent or current infection. Legionnaire's disease cannot be ruled out since other serogroups and species may also cause disease. Performing Locations *1: This test was performed at: [facility], [address] [place] [address], [address] [place] [address] Performed By: #### SUKHJINDER #### [place] [address] Observed: 06/01/2018 Status: F Source: [facility] 1:31 AM [facility] REPOSITORY . MICRO - Microbiology PROCEDURE: Streptococcus Pneumoniae Urine Antig [^1 *1] SOURCE: Urine, Clean Catch BODY SITE: COLLECTED DATE/TIME: 06/01/2018 01:31 EST RECEIVED DATE/TIME: 06/01/2018 01:51 EST START DATE/TIME: 06/01/2018 01:51 EST FREE TEXT SOURCE: FINAL REPORTS Final Report [] Verified Date/Time/Personnel: 06/01/2018 06:29 EST Presumptive negative for pneumococcal pneumonia, suggesting no current or recent pneumococcal infection. Infection due to Strep pneumoniae cannot be ruled out since the antigen present in the sample may be below the detection limit of the test. Interpretive Data ^1: Streptococcus Pneumoniae Urine Antig This test has not been evaluated on patients taking antibiotics for greater than 24 hours or on patients who have recently completed an antibiotic regimen. The accuracy of this test has not been proven in young children. Performing Locations *1: This test was performed at: [address] Performed By: #### SPAG #### [place] [address] Observed: 06/01/2018 Status: F Source: [facility] 1:31 AM [facility] REPOSITORY . MICRO - Microbiology PROCEDURE: MRSA PCR [*1] SOURCE: Nares BODY SITE: COLLECTED DATE/TIME: 06/01/2018 01:31 EST RECEIVED DATE/TIME: 06/01/2018 07:52 EST START DATE/TIME: 06/01/2018 07:52 EST FREE TEXT SOURCE: FINAL REPORTS Final Report [] Verified Date/Time/Personnel: 06/01/2018 11:58 EST MRSA NEGATIVE. MRSA DNA not detected by Real-Time Polymerase Chain Reaction (PCR). A negative result may be due to intermittent colonization. Colonization may vary depending on patient treatment, patient status or exposure to high risk environments. As with all PCR based in vitro tests, extremely low levels of target below the limit of detection of the assay may be detected, but results may not be reproducible. Performing Locations *1: This test was performed at: [address] Performed By: #### MRPCR #### [place] [address] XR CHEST 1 VIEW Observed: 06/01/2018 Status: F Source: [facility] 12:55 AM [facility] REPOSITORY ORIGINAL Clinical history: Central line placement. COMPARISON: Chest x-ray 05/31/2018. Portable AP radiograph of the chest was obtained at 1:10 AM. A new RIGHT internal jugular central line has been placed with tip near the cavoatrial junction. There is no pneumothorax. Patient has had sternotomy. LEFT atrial appendage clamp is in place. The heart size is normal. Moderate size RIGHT pleural effusion with RIGHT basilar lung consolidation is unchanged since earlier in the day. The lungs do show slightly improved expansion with less pulmonary edema. There is a small LEFT pleural effusion. IMPRESSION: New RIGHT internal jugular central line in satisfactory position with no sign of complication. Moderate RIGHT pleural effusion and RIGHT basilar lung consolidation and small LEFT pleural effusion. Interpreted By: Sheng Cristina MD Preliminary Report By: Sheng Cristina MD Electronically Signed By: Sheng Cristina MD Dictated Date: 06/01/2018 1:24:48 AM Prelim Date: 06/01/2018 1:24:48 AM Sign Date: 06/01/2018 1:26:14 AM LAC Collected: 05/31/2018 Status: F Source: [facility] 10:07 [facility] REPOSITORY TYPE CODE TESTS RESULT OUT OF REFERENCE UNITS RANGE LAB LAC(LOINC) 0.2-2.0 mmol/L High Lactic Acid 2.5 Lvl Performed By: #### LAC, PHV, CBC, ADIFF, ANEU, GFR, TROPI, CMP #### [place] [address] PHV Collected: 05/31/2018 Status: F Source: [facility] 10:07 [facility] REPOSITORY TYPE CODE TESTS RESULT OUT OF REFERENCE UNITS RANGE LAB PHV(LOINC) 7.380-7.460 Low pH Venous 7.321 Performed By: #### LAC, PHV, CBC, ADIFF, ANEU, GFR, TROPI, CMP #### [place] [address] CBC Collected: 05/31/2018 Status: F Source: [facility] 10:07 PM [facility] REPOSITORY TYPE CODE TESTS RESULT OUT OF REFERENCE UNITS RANGE LAB WBC(LOINC) 4.50-10.80 10 3/mcL High WBC 13.50 LAB RBCCT(LOINC 4.10-5.30 10 6/mcL ) Low RBC 3.02 LAB HGB(LOINC) 12.0-16.0 G/dL Low Hgb 8.7 LAB HCT(LOINC) 34.0-46.0 % Low Hct 27.6 LAB MCV(LOINC) 80.0-99.0 fL MCV 91.3 LAB MCH(LOINC) 27.0-33.0 pg MCH 28.7 LAB MCHC(LOINC) 32.0-36.0 G/dL Low MCHC 31.5 LAB RDW(LOINC) 11.5-15.5 % High RDW 16.4 LAB PLT(LOINC) 150-450 10 3/mcL Low Platelet 88 LAB MPV(LOINC) 6.6-10.5 fL MPV 9.7 Performed By: #### LAC, PHV, CBC, ADIFF, ANEU, GFR, TROPI, CMP #### [address] [address] .AUTO DIFF Collected: 05/31/2018 Status: F Source: [facility] 10:07 [facility] REPOSITORY TYPE CODE TESTS RESULT OUT OF REFERENCE UNITS RANGE LAB EUGENIE(LOINC) 50.0-75.0 % High Neutrophil % 89.5 LAB LYM(LOINC) 20.0-40.0 % Low Lymphocyte % 3.5 LAB MON(LOINC) 2.0-13.0 % Monocyte % 6.3 LAB EO(LOINC) 0.0-6.0 % Eosinophil % 0.4 LAB BAS(LOINC) 0.0-2.5 % Basophil % 0.3 LAB ABLYM(LOIN 0.90-4.32 10 3/mcL C) Low Lymphocyte, 0.50 Absolute LAB NIKC(LOINC 0.09-1.40 10 3/mcL ) Monocyte, 0.90 Absolute LAB AEOS(LOINC 0.00-0.65 10 3/mcL ) Eosinophil, 0.10 Absolute LAB ABAS(LOINC 0.00-0.27 10 3/mcL ) Basophil, 0.00 Absolute Performed By: #### LAC, PHV, CBC, ADIFF, ANEU, GFR, TROPI, CMP #### [address] [address] .NEUABS Collected: 05/31/2018 Status: F Source: [facility] 10:07 [facility] REPOSITORY TYPE CODE TESTS RESULT OUT OF REFERENCE UNITS RANGE LAB ANEU(LOINC) 2.25-8.10 10 3/mcL High Neutrophil, 12.10 Absolute Performed By: #### LAC, PHV, CBC, ADIFF, ANEU, GFR, TROPI, CMP #### [address] [address] .GFR Collected: 05/31/2018 Status: F Source: [facility] 10:07 PM [facility] REPOSITORY TYPE CODE TESTS RESULT OUT OF REFERENCE UNITS RANGE LAB GFRAA(LOINC ml/min/1.73 ) sqm GFR 30 Lao Result Comment: GFR Population mean for , Non- Americans Ages 20-29 = 116 mL/min/1.73 sq.m. Ages 30-39 = 107 mL/min/1.73 sq.m. Ages 40-49 = 99 mL/min/1.73 sq.m. Ages 50-59 = 93 mL/min/1.73 sq.m. Ages 60-69 = 85 mL/min/1.73 sq.m. Ages 70+ = 75 mL/min/1.73 sq.m. Chronic Kidney Disease: Less than 60 mL/min/1.73 square meters End Stage Renal Disease: Less than 15 mL/min/1.73 square meters LAB GFRNO(LOINC) ml/min/1.73sqm GFR Non- 25 Result Comment: GFR Population mean for , Non- Americans Ages 20-29 = 116 mL/min/1.73 sq.m. Ages 30-39 = 107 mL/min/1.73 sq.m. Ages 40-49 = 99 mL/min/1.73 sq.m. Ages 50-59 = 93 mL/min/1.73 sq.m. Ages 60-69 = 85 mL/min/1.73 sq.m. Ages 70+ = 75 mL/min/1.73 sq.m. Chronic Kidney Disease: Less than 60 mL/min/1.73 square meters End Stage Renal Disease: Less than 15 mL/min/1.73 square meters Performed By: #### LAC, PHV, CBC, ADIFF, ANEU, GFR, TROPI, CMP #### [address] [address] TROPI Collected: 05/31/2018 Status: F Source: [facility] 10:07 PM [facility] REPOSITORY TYPE CODE TESTS RESULT OUT OF REFERENCE UNITS RANGE LAB TROPI(LOINC 0.000-0.040 ng/mL ) High Troponin I 0.127 Result Comment: Troponin I reference ranges (03/17/14): 0.00-0.040 ng/mL Negative and non-diagnostic. >0.040 ng/mL Consistent with cardiac damage, increased clinical risk and possibility of myocardial infarction. Serial measurements, a rise & fall in test results, clinical history, appropriate symptoms and/or ECG changes may help assess possibility of LA. *Other non-acute coronary syndrome conditions such as CHF, myocarditis, pulmonary emboli, sepsis and cardiac surgery could result in myocardial damage and increased troponin levels. Performed By: #### LAC, PHV, CBC, ADIFF, ANEU, GFR, TROPI, CMP #### [place] [address] CMP Collected: 05/31/2018 Status: F Source: [facility] 10:07 PM [facility] REPOSITORY TYPE CODE TESTS RESULT OUT OF REFERENCE UNITS RANGE LAB GLU(LOINC) 82-115 mg/dL Glucose High Level 276 LAB NA(LOINC) 136-145 mEq/L Sodium Level 137 LAB K(LOINC) 3.5-5.0 mEq/L Potassium Level 3.8 LAB CL(LOINC) 98-110 mEq/L Chloride 103 LAB CO2(LOINC) 22-32 mEq/L CO2 23 LAB EBAL(LOINC 4.0-15.0 mEq/L ) Electrolyte Balance 11.0 LAB BUN(LOINC) 8.0-22.0 mg/dL BUN High 41.0 LAB CRE(LOINC) 0.50-1.20 mg/dL Creatinine High Lvl (s) 1.97 LAB BC(LOINC) 10.0-22.0 ratio BUN/Creatinine 20.8 Ratio LAB CA(LOINC) 8.4-10.1 mg/dL Low Calcium Lvl 7.3 LAB PROT(LOINC 6.0-8.5 G/dL ) Low Total Protein 4.9 LAB ALB(LOINC) 3.2-4.8 G/dL Low Albumin Level 1.6 LAB GLB(LOINC) 1.5-3.8 G/dL Globulin 3.3 LAB AG(LOINC) 0.9-1.6 ratio Low A/G Ratio 0.5 LAB BILT(LOINC 0.2-1.2 mg/dL ) Bili Total 0.3 LAB AP(LOINC) 38-126 U/L Alk Phos High 144 LAB AST(LOINC) 8-34 U/L AST/SGOT 24 LAB ALT(LOINC) 10-49 U/L ALT/SGPT 20 Performed By: #### LAC, PHV, CBC, ADIFF, ANEU, GFR, TROPI, CMP #### [place] [id number] [place] [address] CBC Collected: 05/31/2018 Status: F Source: [facility] 2:45 [facility] REPOSITORY TYPE CODE TESTS RESULT OUT OF REFERENCE UNITS RANGE LAB WBC(LOINC) 4.60-10.80 10 3/mcL High WBC 20.20 LAB RBCCT(LOINC 4.20-5.40 10 6/mcL ) Low RBC 3.29 LAB HGB(LOINC) 12.0-16.0 G/dL Low Hgb 9.5 LAB HCT(LOINC) 37.0-47.0 % Low Hct 29.7 LAB MCV(LOINC) 80.0-94.0 fL MCV 90.5 LAB MCH(LOINC) 27.0-31.2 pg MCH 28.9 LAB MCHC(LOINC) 33.0-37.0 G/dL Low MCHC 31.9 LAB RDW(LOINC) 11.5-14.5 % High RDW 15.8 LAB PLT(LOINC) 130-400 10 3/mcL Low Platelet 122 LAB MPV(LOINC) 7.4-10.4 fL MPV 9.8 Performed By: #### CBC, ADIFF, ANEU #### [address] [address] .AUTO DIFF Collected: 05/31/2018 Status: F Source: [facility] 2:45 PM [facility] REPOSITORY TYPE CODE TESTS RESULT OUT OF REFERENCE UNITS RANGE LAB EUGENIE(LOINC) 37.0-80.0 % High Neutrophil % 94.5 LAB LYM(LOINC) 10.0-50.0 % Low Lymphocyte % 2.5 LAB MON(LOINC) 1.7-13.0 % Monocyte % 2.6 LAB EO(LOINC) 0.0-7.0 % Eosinophil % 0.2 LAB BAS(LOINC) 0.0-2.5 % Basophil % 0.2 LAB ABLYM(LOIN 0.77-3.85 10 3/mcL C) Low Lymphocyte, 0.50 Absolute LAB NICK(LOINC 0.15-1.00 10 3/mcL ) Monocyte, 0.50 Absolute LAB AEOS(LOINC 0.00-0.40 10 3/mcL ) Eosinophil, 0.00 Absolute LAB ABAS(LOINC 0.00-0.19 10 3/mcL ) Basophil, 0.00 Absolute Performed By: #### CBC, ADJAMIR, ANEU #### [place] [address] [place], [place] [address] .NEUABS Collected: 05/31/2018 Status: F Source: [facility] [address] [place] [address] REPOSITORY TYPE CODE TESTS RESULT OUT OF REFERENCE UNITS RANGE LAB ANEU(LOINC) 2.85-6.16 10 3/mcL High Neutrophil, 19.10 Absolute Performed By: #### CBC, ADIFF, ANEU #### [place] [address] [place], [place] [address] BMP Collected: 05/31/2018 Status: F Source: [facility] [address] [place] [address] REPOSITORY TYPE CODE TESTS RESULT OUT OF REFERENCE UNITS RANGE LAB GLU(LOINC) 83-110 mg/dL Glucose High Level 258 LAB NA(LOINC) 136-145 mmol/L Sodium Level 137 LAB K(LOINC) 3.5-5.1 mmol/L Potassium Level 3.6 LAB CL(LOINC) 98-107 mmol/L Chloride 101 LAB CO2(LOINC) 23-31 mmol/L CO2 24 LAB EBAL(LOINC mEq/L ) Electrolyte Balance 12.0 LAB BUN(LOINC) 7-18 mg/dL BUN High 30 LAB CRE(LOINC) 0.55-1.02 mg/dL Creatinine High Lvl (s) 2.58 LAB BC(LOINC) 7-27 ratio BUN/Creatinine 12 Ratio LAB CA(LOINC) 8.4-10.2 mg/dL Low Calcium Lvl 7.8 Performed By: #### BMP, GFR, TROP #### [address] [address] .GFR Collected: 05/31/2018 Status: F Source: [facility] 2:45 [facility] REPOSITORY TYPE CODE TESTS RESULT OUT OF REFERENCE UNITS RANGE LAB GFRAA(LOINC ml/min/1.73 ) sqm GFR 22 Lao Result Comment: GFR Population mean for , Non- Americans Ages 20-29 = 116 mL/min/1.73 sq.m. Ages 30-39 = 107 mL/min/1.73 sq.m. Ages 40-49 = 99 mL/min/1.73 sq.m. Ages 50-59 = 93 mL/min/1.73 sq.m. Ages 60-69 = 85 mL/min/1.73 sq.m. Ages 70+ = 75 mL/min/1.73 sq.m. Chronic Kidney Disease: Less than 60 mL/min/1.73 square meters End Stage Renal Disease: Less than 15 mL/min/1.73 square meters LAB GFRNO(LOINC) ml/min/1.73sqm GFR Non- 18 Result Comment: GFR Population mean for , Non- Americans Ages 20-29 = 116 mL/min/1.73 sq.m. Ages 30-39 = 107 mL/min/1.73 sq.m. Ages 40-49 = 99 mL/min/1.73 sq.m. Ages 50-59 = 93 mL/min/1.73 sq.m. Ages 60-69 = 85 mL/min/1.73 sq.m. Ages 70+ = 75 mL/min/1.73 sq.m. Chronic Kidney Disease: Less than 60 mL/min/1.73 square meters End Stage Renal Disease: Less than 15 mL/min/1.73 square meters Performed By: #### BMP, GFR, TROP #### [place] [address] TROP Collected: 05/31/2018 Status: F Source: [facility] 2:45 PM [facility] REPOSITORY TYPE CODE TESTS RESULT OUT OF RANGE REFERENCE UNITS LAB TROP(LOINC 0.000-0.040 ng/mL ) Abnormal Alert Troponin 0.144 Result Comment: Troponin I reference range: 0.00-0.040 ng/mL Negative and non-diagnostic. >0.040 ng/mL Consistent with cardiac damage, increased clinical risk and possibility of myocardial infarction. Serial measurements, a rise & fall in test results, clinical history, appropriate symptoms and/or ECG changes may help assess possibility of LA. *Other non-acute coronary syndrome conditions such as CHF, myocarditis, pulmonary emboli, sepsis and cardiac surgery could result in myocardial damage and increased troponin levels. Performed By: #### BMP, GFR, TROP #### [facility] [address] [place] [address] XR CHEST 1 VIEW Observed: 05/31/2018 Status: F Source: [facility] 12:30 PM [facility] REPOSITORY ORIGINAL XR CHEST 1 VIEW, 05/31/2018 12:32 PM INDICATION: hypoxia COMPARISON: Previous day FINDINGS: The film is rotated. Sternotomy wires are unchanged. There is a RIGHT pleural effusion. There is bilateral atelectasis. The pulmonary vasculature is unremarkable in appearance. IMPRESSION: Increased bilateral atelectasis, greater on the RIGHT; an underlying mild RIGHT effusion may be mildly increased as well. Interpreted By: Telly Ugarte MD Preliminary Report By: Telly Ugarte MD Electronically Signed By: Telly Ugarte MD Dictated Date: 05/31/2018 12:39:23 PM Prelim Date: 05/31/2018 12:39:23 PM Sign Date: 05/31/2018 12:40:51 PM Observed: 05/31/2018 Status: F Source: [facility] CDPCR 11:40 AM [facility] REPOSITORY . MICRO - Microbiology PROCEDURE: Clostridium difficile PCR [^1 *1] SOURCE: Stool BODY SITE: COLLECTED DATE/TIME: 05/31/2018 11:40 EST RECEIVED DATE/TIME: 06/01/2018 22:05 EST START DATE/TIME: 06/01/2018 22:05 EST FREE TEXT SOURCE: FINAL REPORTS Final Report [] Verified Date/Time/Personnel: 06/02/2018 12:47 EST Clostridium toxin B gene tcdB gene DNA DETECTED. A Positive C. difficile assay detection result does not necessarily indicate the presence of viable organisms. It does however indicate the presence of the tcdB gene and allows for presumptive detection of a Clostridium difficile toxigenic organism. This assay cannot be used for species identification as it does not contain primers and probes specific to Clostridium difficile. As with all PCR-based in vitro diagnostic tests, extremely low levels of target below the limit of of the assay may be detected, but results may not be reproducible. Infection control has been notified. Interpretive Data ^1: Clostridium difficile PCR As with all in vitro diagnostic tests, positive and negative predictive values are highly dependent on prevalence. The BD MAX C. difficile PCR Assay performance may vary depending on the prevalence and population tested. Performing Locations *1: This test was performed at: [facility], [address] [place] [address], [id number] Performed By: #### CDPCR #### [facility] [address] [place] [address] RENAL Observed: 05/31/2018 Status: F Source: [facility] 9:32 AM [facility] REPOSITORY ORIGINAL US RENAL, 05/31/2018 10:09 AM INDICATION: Acute kidney injury COMPARISON: November 2017 FINDINGS: The RIGHT kidney measures 9.5 cm in length. There is no hydronephrosis. The superior parenchyma is hyperechoic. There is a 12 mm cyst in the mid kidney. The LEFT kidney measures 10.0 cm in length. There is no hydronephrosis. There is a 12 mm cyst in the mid kidney. IMPRESSION: No significant interval change. Interpreted By: Telly Ugarte MD Preliminary Report By: Telly Ugarte MD Electronically Signed By: Telly Ugarte MD Dictated Date: 05/31/2018 10:10:53 AM Prelim Date: 05/31/2018 10:10:53 AM Sign Date: 05/31/2018 10:15:39 AM ABG Collected: 05/31/2018 Status: F Source: [facility] 5:22 AM [facility] REPOSITORY TYPE CODE TESTS RESULT OUT OF REFERENCE UNITS RANGE LAB PH(LOINC) 7.35-7.45 pH 7.45 LAB PCO2(LOINC) 35.0-45.0 mmHg Low pCO2 27.8 LAB PO2(LOINC) 80.0-100.0 mmHg pO2 87.0 LAB HCO3(LOINC) 22.0-26.0 mmol/L Low HCO3 19.5 LAB TCO2(LOINC) 19-24 mmol/L CO2 Totl 20 LAB BE(LOINC) -2.4-2.3 mmol/L Low Base Excess -4.0 LAB O2SAT(LOINC 95-98 % ) O2 Sat 97 Performed By: #### ABG #### [place] [address] [place], [place] [address] CBC Collected: 05/31/2018 Status: F Source: [facility] 5:05 AM [facility] REPOSITORY TYPE CODE TESTS RESULT OUT OF REFERENCE UNITS RANGE LAB WBC(LOINC) 4.60-10.80 10 3/mcL High WBC 15.60 LAB RBCCT(LOINC 4.20-5.40 10 6/mcL ) Low RBC 3.05 LAB HGB(LOINC) 12.0-16.0 G/dL Low Hgb 8.8 LAB HCT(LOINC) 37.0-47.0 % Low Hct 27.5 LAB MCV(LOINC) 80.0-94.0 fL MCV 89.9 LAB MCH(LOINC) 27.0-31.2 pg MCH 28.8 LAB MCHC(LOINC) 33.0-37.0 G/dL Low MCHC 32.0 LAB RDW(LOINC) 11.5-14.5 % High RDW 16.2 LAB PLT(LOINC) 130-400 10 3/mcL Low Platelet 91 LAB MPV(LOINC) 7.4-10.4 fL MPV 9.8 Performed By: #### CBC, ADIFF, ANEU #### [address] [address] #### TROP, BMP, MG, GFR #### [address] [address] .AUTO DIFF Collected: 05/31/2018 Status: F Source: [facility] 5:05 AM [facility] REPOSITORY TYPE CODE TESTS RESULT OUT OF REFERENCE UNITS RANGE LAB EUGENIE(LOINC) 37.0-80.0 % High Neutrophil % 93.1 LAB LYM(LOINC) 10.0-50.0 % Low Lymphocyte % 0.8 LAB MON(LOINC) 1.7-13.0 % Monocyte % 4.1 LAB EO(LOINC) 0.0-7.0 % Eosinophil % 1.9 LAB BAS(LOINC) 0.0-2.5 % Basophil % 0.1 LAB ABLYM(LOIN 0.77-3.85 10 3/mcL C) Low Lymphocyte, 0.10 Absolute LAB NICK(LOINC 0.15-1.00 10 3/mcL ) Monocyte, 0.60 Absolute LAB AEOS(LOINC 0.00-0.40 10 3/mcL ) Eosinophil, 0.30 Absolute LAB ABAS(LOINC 0.00-0.19 10 3/mcL ) Basophil, 0.00 Absolute Performed By: #### CBC, ADIFF, ANEU #### [address] [address] #### TROP, BMP, MG, GFR #### [address] [address] .NEUABS Collected: 05/31/2018 Status: F Source: [facility] 5:05 AM [facility] REPOSITORY TYPE CODE TESTS RESULT OUT OF REFERENCE UNITS RANGE LAB ANEU(LOINC) 2.85-6.16 10 3/mcL High Neutrophil, 14.50 Absolute Performed By: #### CBC, ADIFF, ANEU #### [address] [address] #### TROP, BMP, MG, GFR #### [place] [id number] TROP Collected: 05/31/2018 Status: F Source: [facility] 5:05 AM [facility] REPOSITORY TYPE CODE TESTS RESULT OUT OF RANGE REFERENCE UNITS LAB TROP(LOINC 0.000-0.040 ng/mL ) Abnormal Alert Troponin 0.128 Result Comment: Troponin I reference range: 0.00-0.040 ng/mL Negative and non-diagnostic. >0.040 ng/mL Consistent with cardiac damage, increased clinical risk and possibility of myocardial infarction. Serial measurements, a rise & fall in test results, clinical history, appropriate symptoms and/or ECG changes may help assess possibility of LA. *Other non-acute coronary syndrome conditions such as CHF, myocarditis, pulmonary emboli, sepsis and cardiac surgery could result in myocardial damage and increased troponin levels. Performed By: #### CBC, ADIFF, ANEU #### [address] [address] #### TROP, BMP, MG, GFR #### [address] [address] BMP Collected: 05/31/2018 Status: F Source: [facility] 5:05 AM [facility] REPOSITORY TYPE CODE TESTS RESULT OUT OF REFERENCE UNITS RANGE LAB GLU(LOINC) 83-110 mg/dL Glucose High Level 294 LAB NA(LOINC) 136-145 mmol/L Low Sodium Level 135 LAB K(LOINC) 3.5-5.1 mmol/L Low Potassium Level 3.4 LAB CL(LOINC) 98-107 mmol/L Chloride 101 LAB CO2(LOINC) 23-31 mmol/L Low CO2 21 LAB EBAL(LOINC mEq/L ) Electrolyte Balance 13.0 LAB BUN(LOINC) 7-18 mg/dL BUN High 53 LAB CRE(LOINC) 0.55-1.02 mg/dL Creatinine High Lvl (s) 2.89 LAB BC(LOINC) 7-27 ratio BUN/Creatinine 18 Ratio LAB CA(LOINC) 8.4-10.2 mg/dL Low Calcium Lvl 7.3 Performed By: #### CBC, ADIFF, ANEU #### [facility] [address] [place], [place] [address] #### TROP, BMP, MG, GFR #### [facility] [address] [place] [address] MG Collected: 05/31/2018 Status: F Source: [facility] 5:05 AM [facility] REPOSITORY TYPE CODE TESTS RESULT OUT OF REFERENCE UNITS RANGE LAB MG(LOINC) 1.8-2.4 mg/dL Low Magnesium Lvl 1.4 Performed By: #### CBC, ADIFF, ANEU #### [place] [address] [place], [place] [address] #### TROP, BMP, MG, GFR #### [facility] [address] [place] [address] .GFR Collected: 05/31/2018 Status: F Source: [facility] 5:05 AM [facility] REPOSITORY TYPE CODE TESTS RESULT OUT OF REFERENCE UNITS RANGE LAB GFRAA(LOINC ml/min/1.73 ) sqm GFR 19 Lao Result Comment: GFR Population mean for , Non- Americans Ages 20-29 = 116 mL/min/1.73 sq.m. Ages 30-39 = 107 mL/min/1.73 sq.m. Ages 40-49 = 99 mL/min/1.73 sq.m. Ages 50-59 = 93 mL/min/1.73 sq.m. Ages 60-69 = 85 mL/min/1.73 sq.m. Ages 70+ = 75 mL/min/1.73 sq.m. Chronic Kidney Disease: Less than 60 mL/min/1.73 square meters End Stage Renal Disease: Less than 15 mL/min/1.73 square meters LAB GFRNO(LOINC) ml/min/1.73sqm GFR Non- 16 Result Comment: GFR Population mean for , Non- Americans Ages 20-29 = 116 mL/min/1.73 sq.m. Ages 30-39 = 107 mL/min/1.73 sq.m. Ages 40-49 = 99 mL/min/1.73 sq.m. Ages 50-59 = 93 mL/min/1.73 sq.m. Ages 60-69 = 85 mL/min/1.73 sq.m. Ages 70+ = 75 mL/min/1.73 sq.m. Chronic Kidney Disease: Less than 60 mL/min/1.73 square meters End Stage Renal Disease: Less than 15 mL/min/1.73 square meters Performed By: #### CBC, ADIFF, ANEU #### [address] [address] #### TROP, BMP, MG, GFR #### [place] [address] LAC Collected: 05/31/2018 Status: F Source: [email or web address] 5:05 AM [facility] REPOSITORY TYPE CODE TESTS RESULT OUT OF REFERENCE UNITS RANGE LAB LAC(LOINC) 0.4-2.0 mmol/L Lactic Acid 2.0 Lvl Performed By: #### LAC #### [place] [address] CRUR Collected: 05/31/2018 Status: F [facility] AM [facility] REPOSITORY TYPE CODE TESTS RESULT OUT OF REFERENCE UNITS RANGE LAB CRU(LOINC) 28.0-117.0 mg/dL U Creatinine 43.8 Performed By: #### CRUR, NAUR #### [place] [address] NAUR Collected: 05/31/2018 Status: F Source: [email or web address] 12:42 AM [facility] REPOSITORY TYPE CODE TESTS RESULT OUT OF REFERENCE UNITS RANGE LAB KARL(LOINC) 20-110 mmol/L U Sodium 56 Performed By: #### CRUR, NAUR #### [place] [id number] XR CHEST 2 VIEWS Observed: 05/30/2018 Status: F Source: [facility] 6:34 PM [facility] REPOSITORY ORIGINAL XR CHEST 2 VIEWS CLINICAL STATEMENT: Chest Pain. 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 New sternal fixation plates and screws are identified. The cardiac and mediastinal contours are stable with mild cardiome tommy. There is mild pulmonary vascular congestion with coarsening of the interstitial markings favoring edema. A small RIGHT pleural effusion is seen with adjacent airspace disease. No appreciable pneumothorax. No acute osseous abnormality. IMPRESSION: Mild congestive failure with small RIGHT pleural effusion and adjacent airspace disease. I have personally reviewed the images of this examination and agree with the resident's findings and interpretation. Interpreted By: Quintin Rich MD Preliminary Report By: Jacobo Handy MD Electronically Signed By: Quintin Rich MD Dictated Date: 05/30/2018 6:39:01 PM Prelim Date: 05/30/2018 6:41:06 PM Sign Date: 05/30/2018 7:05:49 PM UA Collected: 05/30/2018 Status: F Source: [facility] 6:09 PM [facility] REPOSITORY TYPE CODE TESTS RESULT OUT OF RANGE REFERENCE UNITS LAB SPCUA(SHIN NC) UA Specimen Type Clean Catch LAB CLRUA(SHIN NC) UA Color Yellow LAB APPUA(SHIN Clear NC) UA Appear Clear LAB SGUA(LOIN C) UA Spec Grav 1.020 LAB GLUA(LOIN Negative mg/dL C) UA Glucose Negative LAB BILUA(SHIN Negative NC) UA Bili Negative LAB KETUA(SHIN Negative mg/dL NC) UA Ketones Negative LAB BLDUA(SHIN Negative NC) UA Blood Unknown Large LAB PHUA(LOIN C) UA pH 6.0 LAB PROUA(SHIN Negative mg/dL NC) UA Protein 30 LAB UROUA(SHIN E.U./dL NC) UA Urobilinogen 0.2 LAB NITUA(SHIN Negative NC) UA Nitrite Negative LAB LEUUA(SHIN Negative NC) UA Leuk Est Unknown Moderate Performed By: #### UA, UAMICAO #### [place] [id number] .URINALYSIS MICROSCOPIC Collected: 05/30/2018 Status: F Source: [place] ([facility]) 6:09 PM [facility] [place] REPOSITORY TYPE CODE TESTS RESULT OUT OF RANGE REFERENCE UNITS LAB WBCUA(LOIN None Seen /hpf C) Unknown UA WBC 15-25 LAB RBCUA(LOIN None Seen /hpf C) Unknown UA RBC LOADED LAB EPIUA(LOIN None Seen /hpf C) Unknown UA Squam Epithelial 0-5 LAB BACUA(LOIN /hpf C) Unknown UA Bacteria 1+ Performed By: #### UA, UAMICAO #### [place] [id number] [place], [place] [address] Observed: 05/30/2018 Status: F Source: [facility] 6:09 PM [facility] REPOSITORY . MICRO - Microbiology PROCEDURE: Urine Culture [*1] SOURCE: Urine, Clean Catch BODY SITE: COLLECTED DATE/TIME: 05/30/2018 18:09 EST RECEIVED DATE/TIME: 06/01/2018 22:05 EST START DATE/TIME: 06/01/2018 22:05 EST FREE TEXT SOURCE: FINAL REPORTS Final Report [] Verified Date/Time/Personnel: 06/03/2018 10:36 EST >100,000 organisms per mL Escherichia coli PRELIMINARY REPORTS Preliminary Report [] Verified Date/Time/Personnel: 06/02/2018 14:07 EST >100,000 organisms per mL Gram Negative Rods Final identification and LOURDES to follow. SUSCEPTIBILITY RESULTS Escherichia coli Antibiotic LOURDES Dilutn LOURDES Interp Ampicillin >16 Resistant Cefazolin >16 Resistant Cefotaxime <=2 Susceptible Cefuroxime 8 Susceptible Ciprofloxacin <=1 Susceptible Gentamicin <=4 Susceptible Levofloxacin <=2 Susceptible Meropenem <=1 Susceptible Nitrofurantoin <=32 Susceptible Piperacillin/ <=16 Susceptible Tazobactam Trimethoprim/ <=2/38 Susceptible Sulfa Performing Locations *1: This test was performed at: [facility], [address] [place] [address], [facility] , [facility] Performed By: #### CUR #### [address] [address] PHV Collected: 05/30/2018 Status: F Source: [facility] 5:40 PM [facility] REPOSITORY TYPE CODE TESTS RESULT OUT OF REFERENCE UNITS RANGE LAB PHV(LOINC) 7.35-7.45 Low pH Venous 7.34 Performed By: #### PHV, SÁNCHEZ #### [place] [id number] [place], [place] [address] #### LIP #### [facility] [address] [place] [address] SÁNCHEZ Collected: 05/30/2018 Status: F Source: [email or web address] 5:40 PM [facility] REPOSITORY TYPE CODE TESTS RESULT OUT OF RANGE REFERENCE UNITS LAB SÁNCHEZ(LOIN Negative mg/dL C) Unknown Acetone (s) Small Performed By: #### PHV, SÁNCHEZ #### [address] [address] #### LIP #### [place] [address] LIP Collected: 05/30/2018 Status: F Source: [facility] 5:40 PM [facility] REPOSITORY TYPE CODE TESTS RESULT OUT OF REFERENCE UNITS RANGE LAB LIP(LOINC) 73-393 U/L Low Lipase Level 64 Performed By: #### PHV, SÁNCHEZ #### [address] [address] #### LIP #### [facility] [address] [place] [address] CMP Collected: 05/30/2018 Status: F Source: [facility] 5:40 PM [facility] REPOSITORY TYPE CODE TESTS RESULT OUT OF REFERENCE UNITS RANGE LAB GLU(LOINC) 83-110 mg/dL Glucose High Level 259 LAB NA(LOINC) 136-145 mmol/L Low Sodium Level 133 LAB K(LOINC) 3.5-5.1 mmol/L Potassium Level 3.6 LAB CL(LOINC) 98-107 mmol/L Chloride 98 LAB CO2(LOINC) 23-31 mmol/L Low CO2 21 LAB EBAL(LOINC mEq/L ) Electrolyte Balance 14.0 LAB BUN(LOINC) 7-18 mg/dL BUN High 51 LAB CRE(LOINC) 0.55-1.02 mg/dL Creatinine High Lvl (s) 2.97 LAB BC(LOINC) 7-27 ratio BUN/Creatinine 17 Ratio LAB CA(LOINC) 8.4-10.2 mg/dL Low Calcium Lvl 8.1 LAB PROT(LOINC 6.4-8.2 G/dL ) Total Protein 6.4 LAB ALB(LOINC) 3.4-4.8 G/dL Low Albumin Level 2.3 LAB GLB(LOINC) G/dL Globulin 4.1 LAB AG(LOINC) 1.1-2.5 ratio Low A/G Ratio 0.6 LAB BILT(LOINC 0.2-1.0 mg/dL ) Bili Total 0.9 LAB AP(LOINC) 40-135 U/L Alk Phos High 214 LAB AST(LOINC) 10-40 U/L AST/SGOT 25 LAB ALT(LOINC) 10-35 U/L ALT/SGPT 23 Performed By: #### CMP, GFR, LAC #### [place] [address] .GFR Collected: 05/30/2018 Status: F Source: [facility] 5:40 PM [facility] REPOSIT[facility] TYPE CODE TESTS RESULT OUT OF REFERENCE UNITS RANGE LAB GFRAA(LOINC ml/min/1.73 ) sqm GFR 19 Lao Result Comment: GFR Population mean for , Non- Americans Ages 20-29 = 116 mL/min/1.73 sq.m. Ages 30-39 = 107 mL/min/1.73 sq.m. Ages 40-49 = 99 mL/min/1.73 sq.m. Ages 50-59 = 93 mL/min/1.73 sq.m. Ages 60-69 = 85 mL/min/1.73 sq.m. Ages 70+ = 75 mL/min/1.73 sq.m. Chronic Kidney Disease: Less than 60 mL/min/1.73 square meters End Stage Renal Disease: Less than 15 mL/min/1.73 square meters LAB GFRNO(LOINC) ml/min/1.73sqm GFR Non- 15 Result Comment: GFR Population mean for , Non- Americans Ages 20-29 = 116 mL/min/1.73 sq.m. Ages 30-39 = 107 mL/min/1.73 sq.m. Ages 40-49 = 99 mL/min/1.73 sq.m. Ages 50-59 = 93 mL/min/1.73 sq.m. Ages 60-69 = 85 mL/min/1.73 sq.m. Ages 70+ = 75 mL/min/1.73 sq.m. Chronic Kidney Disease: Less than 60 mL/min/1.73 square meters End Stage Renal Disease: Less than 15 mL/min/1.73 square meters Performed By: #### CMP, GFR, LAC #### [place] [address] LAC Collected: 05/30/2018 Status: F Source: [facility] 5:40 PM [facility] REPOSITORY TYPE CODE TESTS RESULT OUT OF REFERENCE UNITS RANGE LAB LAC(LOINC) 0.4-2.0 mmol/L Lactic Acid 1.5 Lvl Performed By: #### CMP, GFR, LAC #### [place] [address] TROP Collected: 05/30/2018 Status: F Source: [facility] 5:40 PM [facility] REPOSITORY TYPE CODE TESTS RESULT OUT OF REFERENCE UNITS RANGE LAB TROP(LOINC) 0.000-0.040 ng/mL High Troponin 0.078 Result Comment: Troponin I reference range: 0.00-0.040 ng/mL Negative and non-diagnostic. >0.040 ng/mL Consistent with cardiac damage, increased clinical risk and possibility of myocardial infarction. Serial measurements, a rise & fall in test results, clinical history, appropriate symptoms and/or ECG changes may help assess possibility of LA. *Other non-acute coronary syndrome conditions such as CHF, myocarditis, pulmonary emboli, sepsis and cardiac surgery could result in myocardial damage and increased troponin levels. Performed By: #### TROP, PBNP #### [place] [address] #### CBC, ADIFF, ANEU #### [address] [address] PBNP Collected: 05/30/2018 Status: F Source: [facility] 5:40 PM [facility] REPOSITORY TYPE CODE TESTS RESULT OUT OF REFERENCE UNITS RANGE LAB PBNP(LOINC) 0-125 pg/mL High N-Terminal [id number] proBNP Result Comment: NT-proBNP results of less than 300 pg/mL effectively rules out acute congestive heart failure with 99% negative predictive value. Performed By: #### TROP, PBNP #### [place] [address] #### CBC, ADIFF, ANEU #### [place] [id number] [place], [place] [address] CBC Collected: 05/30/2018 Status: F Source: [facility] 5:40 PM [facility] REPOSITORY TYPE CODE TESTS RESULT OUT OF REFERENCE UNITS RANGE LAB WBC(LOINC) 4.60-10.80 10 3/mcL High WBC 18.60 LAB RBCCT(LOINC 4.20-5.40 10 6/mcL ) Low RBC 3.63 LAB HGB(LOINC) 12.0-16.0 G/dL Low Hgb 10.5 LAB HCT(LOINC) 37.0-47.0 % Low Hct 33.2 LAB MCV(LOINC) 80.0-94.0 fL MCV 91.5 LAB MCH(LOINC) 27.0-31.2 pg MCH 29.0 LAB MCHC(LOINC) 33.0-37.0 G/dL Low MCHC 31.7 LAB RDW(LOINC) 11.5-14.5 % High RDW 16.3 LAB PLT(LOINC) 130-400 10 3/mcL Low Platelet 124 LAB MPV(LOINC) 7.4-10.4 fL MPV 9.4 Performed By: #### TROP, PBNP #### [place] [address] #### CBC, ADIFF, ANEU #### [place] [address] [place], [place] [address] .AUTO DIFF Collected: 05/30/2018 Status: F Source: [facility] 5:40 [facility] REPOSITORY TYPE CODE TESTS RESULT OUT OF REFERENCE UNITS RANGE LAB EUGENIE(LOINC) 37.0-80.0 % High Neutrophil % 94.0 LAB LYM(LOINC) 10.0-50.0 % Low Lymphocyte % 1.6 LAB MON(LOINC) 1.7-13.0 % Monocyte % 3.1 LAB EO(LOINC) 0.0-7.0 % Eosinophil % 1.2 LAB BAS(LOINC) 0.0-2.5 % Basophil % 0.1 LAB ABLYM(LOIN 0.77-3.85 10 3/mcL C) Low Lymphocyte, 0.30 Absolute LAB NICK(LOINC 0.15-1.00 10 3/mcL ) Monocyte, 0.60 Absolute LAB AEOS(LOINC 0.00-0.40 10 3/mcL ) Eosinophil, 0.20 Absolute LAB ABAS(LOINC 0.00-0.19 10 3/mcL ) Basophil, 0.00 Absolute Performed By: #### TROP, PBNP #### [place] [address] #### CBC, ADIFF, ANEU #### [place] [address] [place], [place] [address] .NEUABS Collected: 05/30/2018 Status: F Source: [facility] 5:40 PM [facility] REPOSITORY TYPE CODE TESTS RESULT OUT OF REFERENCE UNITS RANGE LAB ANEU(LOINC) 2.85-6.16 10 3/mcL High Neutrophil, 17.50 Absolute Performed By: #### TROP, PBNP #### [place] [address] #### CBC, ADIFF, ANEU #### [place] [id number] [place], [place] [address] Observed: 05/30/2018 Status: F Source: [facility] 5:40 PM [facility] REPOSITORY . MICRO - Microbiology PROCEDURE: Blood Culture (bacterial) [*1] SOURCE: Blood BODY SITE: COLLECTED DATE/TIME: 05/30/2018 17:40 EST RECEIVED DATE/TIME: 06/01/2018 22:05 EST START DATE/TIME: 06/01/2018 22:05 EST FREE TEXT SOURCE: FINAL REPORTS Final Report [] Verified Date/Time/Personnel: 06/03/2018 11:52 EST Streptococcus intermedius Isolated from aerobe and anaerobe bottles. Unable to perform sensitivity testing due to the fastidious nature of the organism. PRELIMINARY REPORTS Preliminary Report [] Verified Date/Time/Personnel: 06/03/2018 08:12 EST Alpha Strep Isolated from aerobe and anaerobe bottles. Final report to follow. Preliminary Report [] Verified Date/Time/Personnel: 06/01/2018 22:59 EST Culture has been received in lab and is no growth to date. Routine cultures are held for 5 days. STAINS GSANA [] Verified Date/Time/Personnel: 06/02/2018 12:30 EST Gram Positive Cocci in pairs GSAER [] Verified Date/Time/Personnel: 06/02/2018 10:32 EST Gram Positive Cocci in pairs Performing Locations *1: This test was performed at: [facility], [address] [place] [address], [id number] , [facility] Performed By: #### CBL #### [place] [id number] [place] [address] XR CHEST 2 VIEWS Observed: 02/13/2018 Status: F Source: [facility] 1:06 PM [facility] REPOSITORY ORIGINAL Chest, PA and lateral, 02/13/2018. CLINICAL INFORMATION: Pleural effusion. COMPARISON: 01/23/2018 Sternotomy sutures, manubrial and sternal plates, mitral valve and LEFT atrial appendage clamp all appear stable. Heart is upper normal size. Aorta atherosclerotic. There is minimal RIGHT pleural effusi on, probably improved from prior. No airspace infiltrate or pneumothorax. Bones are very osteopenic. IMPRESSION: Minimal RIGHT pleural effusion, improved from prior. Interpreted By: Telly Avila MD Preliminary Report By: Telly Avila MD Electronically Signed By: Telly Avila MD Dictated Date: 02/13/2018 4:03:07 PM Prelim Date: 02/13/2018 4:03:07 PM Sign Date: 02/13/2018 4:04:35 PM US CHEST Observed: 01/30/2018 Status: F Source: [facility] 9:30 AM [facility] REPOSITORY ORIGINAL Limited ultrasound chest, 01/30/2018. CLINICAL INFORMATION: Pleural effusion. COMPARISON: CT chest 01/25/2018, chest PA and lateral 01/23/2018, ultrasound guided RIGHT thoracentesis 01/12/2018 Limited real-time images show no significant LEFT pleural fluid. There is a small RIGHT pleural effusion. Although it is large enough to obtain fluid for diagnostic purposes, thoracentesis of this small amount of pleural fluid will probably not provide any therapeutic benefit. Thoracentesis was not attempted today. Interpreted By: Telly Avila MD Preliminary Report By: Telly Avila MD Electronically Signed By: Telly Avila MD Dictated Date: 01/31/2018 8:42:16 AM Prelim Date: 01/31/2018 8:42:16 AM Sign Date: 01/31/2018 8:44:[address] THORAX W/O Observed: 01/25/2018 Status: F Source: [facility] 10:00 AM [facility] REPOSITORY ORIGINAL CT THORAX W/O CONTRAST: Multiplanar coronal, sagittal, axial reconstructions were created and reviewed by the radiologist on a separate workstation. This exam was performed according to our departmental dose optimization progr am, and includes the following measures where applicable: automated exposure control, adjustment of the mAs and/or kVp according to patient size and/or exam, and an iterative reconstruction algorithm. CLINICAL STATEMENT:RECURRENT PLURAL EFFUSIONSand shortness of breath. Patient had open heart surgery in November. COMPARISON: Chest radiograph 01/23/2018 FINDINGS: Gas is noted predominantly in the LEFT lobe of the liver. There is no gastric distention, ischemia, pneumatosis intestinalis or perforation visualized on this exam. Transcutaneous cardiac pacer wires are noted with leads terminating in the pericardial sac without significant effusion. There are post surgical changes of coronary bypass, mitral valve replacement and LEFT atrial appendage clip. The heart size is normal. There are atherosclerotic calcifications of the coronary arteries. The great vessels are of normal caliber. There are atherosclerotic calcifications of the aorta. The visualized thyroid gland is normal. Evaluation is suboptimal for lymphadenopathy secondary to the lack of IV contrast. There is no axillary, mediastinal, or hilar lymphadenopathy identified given the lack of IV contrast. Calcified hilar l ymph nodes are noted, not enlarged by CT criteria. There is a moderate-sized RIGHT pleural effusion. There is collapse of the RIGHT middle lobe with air bronchograms visualized. The lungs are emphysematous. There are calcified granulomas. There is no pneumothorax. The trachea and mainstem bronchi are patent. There are no suspicious osseous lesions. An age-indeterminate compression deformity of the T6 vertebral body is noted. IMPRESSION: 1. Gas is incidentally seen in the liver with differential of portal venous gas or pneumobilia. Dedicated CT abdomen pelvis recommended. 2. Moderate-sized RIGHT pleural effusion. 3. RIGHT middle lobe collapse. 4. Age-indeterminate compression deformity of T7 vertebral body. IMPORTANT. PHYSICIAN INPUT NECESSARY RADHA. I have personally reviewed the images of this examination and agree with the resident's findings and interpretation. Interpreted By: Uma Quinn MD Preliminary Report By: Benjie Pettit MD Electronically Signed By: Uma Quinn MD Dictated Date: 01/25/2018 10:33:02 AM Prelim Date: 01/25/2018 11:25:22 AM Sign Date: 01/25/2018 2:24:24 PM XR CHEST 2 VIEWS Observed: 01/23/2018 Status: F Source: [facility] 12:00 PM [facility] REPOSITORY ORIGINAL Chest 2 views HISTORY: Right-sided pleural effusion, follow-up COMPARISON: 01/12/2018 The heart is normal in size and there is no vascular congestion present. A prosthetic mitral valve is present and there is a LEFT atrial appendage exclusion device is well. There is a small RIGHT pleura l effusion with some adjacent atelectasis. The findings are slightly more prominent than on the prior study. The LEFT lung appears clear. There are degenerative changes in the spine. IMPRESSION: Small RIGHT pleural effusion with adjacent atelectasis, slightly increased in size. Interpreted By: Quintin Sprague MD Preliminary Report By: Quintin Sprague MD Electronically Signed By: Quintin Sprague MD Dictated Date: 01/23/2018 2:02:53 PM Prelim Date: 01/23/2018 2:02:53 PM Sign Date: 01/23/2018 2:03:52 PM XR CHEST 1 VIEW Observed: 01/12/2018 Status: F Source: [facility] 2:30 PM [facility] REPOSITORY ORIGINAL XR CHEST 1 VIEW CLINICAL STATEMENT: s/p Right thora COMPARISON: X-ray chest PA and lateral 01/09/2018 FINDINGS: There is redemonstration of sternotomy wires, prosthetic mitral valve, and LEFT atrial appendage exclusion device. There is no vascular congestion, or pneumothorax. Bilateral pleural effusions with amanda cent recent regions of atelectasis are again noted. The left-sided effusion remains stable, the right-sided effusion is minimally diminished. No consolidations are seen. No osseous abnormalities are noted in this view. IMPRESSION: 1. Mild interval decrease in RIGHT pleural effusion 2. Stable LEFT pleural effusion 3. No acute cardiopulmonary findings. I have personally reviewed the images of this examination and agree with the resident's findings and interpretation. 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 All questions were answered. Written informed consent was obtained. Accompanying paperwork was verified for accuracy. Directed history and physical exam performed prior to the procedure. Medication reconciliation was performed by nursing personnel. Procedure was performed using a cap, sterile gloves, a large sterile sheet, hand hygiene and hospital-approved cutaneous antisepsis. Ultrasound survey demonstrates a RIGHT pleural effusion. 2% lidocaine was administered at the puncture site for local anesthesia. The one step catheter needle was advanced into the effusion. After removal of the needle, the catheter was attached to vacuum bottles and removed once no additional fluid could be removed. COMPLICATIONS: None EBL: None PATIENT CONDITION: unchanged IMPRESSION: 1. Successful ultrasound guided RIGHT thoracentesis. Procedure was performed by Sofia Harrison PA-C. Interpreted By: Telly Avila MD Preliminary Report By: Sofia Harrison PA-C Electronically Signed By: Telly Avila MD Dictated Date: 01/12/2018 3:13:39 PM Prelim Date: 01/12/2018 3:14:18 PM Sign Date: 01/12/2018 3:17:37 PM XR CHEST 2 VIEWS Observed: 01/09/2018 Status: F Source: [facility] 1:50 PM [facility] REPOSITORY ORIGINAL Chest 2 views HISTORY: Pleural effusion, follow-up COMPARISON: 12/29/2017 Sternotomy wires are present. Prosthetic mitral valve noted. LEFT atrial appendage exclusion device noted. No vascular congestion seen. There are bilateral pleural effusions present, small on the LEFT a nd moderate on the RIGHT. The right-sided effusion is minimally more prominent than on the prior exam. Adjacent regions of basilar atelectasis are present. No separate consolidation seen. The bone is os teopenic and there are degenerative changes in the spine. IMPRESSION: Slight increase in RIGHT pleural effusion since prior exam, now considered small to moderate. Interpreted By: Quintin Sprague MD Preliminary Report By: Quintin Sprague MD Electronically Signed By: Quintin Sprague MD Dictated Date: 01/09/2018 2:01:41 PM Prelim Date: 01/09/2018 2:01:41 PM Sign Date: 01/09/2018 2:02:41 PM XR CHEST 1 VIEW Observed: 12/29/2017 Status: F Source: [facility] 9:00 AM [facility] REPOSITORY ORIGINAL XR CHEST 1 VIEW PORTABLE AP TIME: 8:50 AM CLINICAL STATEMENT: S/P Right thora. COMPARISON: XR CHEST 2 VIEWS 12/26/2017 FINDINGS: Stable cardiomegaly. There are postsurgical changes from a prior sternotomy. Persistent bilateral pleural effusions with associated atelectasis with slight decrease in size of the right-sided pleural effusion. No pneumothorax is identified. There are atherosclerotic calcifications of the thoracic aorta. No displaced fractures are identified. IMPRESSION: Persistent bilateral pleural effusions with associated atelectasis with slight decrease in size of the right-sided pleural effusion. No pneumothorax is identified. Interpreted By: Ivonne Perez MD Preliminary Report By: Ivonne Perez MD Electronically Signed By: Ivonne Perez MD Dictated Date: 12/29/2017 8:56:34 AM Prelim Date: 12/29/2017 8:56:34 AM Sign Date: 12/29/2017 9:18:22 AM US DRAINAGE LUNG Observed: 12/29/2017 Status: F Source: [facility] 7:30 AM [facility] REPOSITORY ORIGINAL ULTRASOUND GUIDED THORACENTESIS CLINICAL STATEMENT: pl effusion LATERALITY: Right FLUID REMOVED: 900 cc FLUID COLOR: Paula-colored DISPOSITION OF FLUID: Discarded CATHETER/NEEDLE: 5 Fr centesis catheter needle The procedure, risks, limitations, and alternatives were discussed. All questions were answered. Written informed consent obtained. Accompanying paperwork was verified for accuracy. Directed history and physical exam performed prior to the procedure. Medication reconciliation was performed by nursing personnel. Procedure was performed using a cap, sterile gloves, a small sterile sheet, hand hygiene and hospital-approved cutaneous antisepsis. Ultrasound survey demonstrates a moderate effusion. 7 ml of 1% lidocaine was administered at the puncture site for local anesthesia. The centesis catheter needle was advanced into the effusion. After removal of the needle, the catheter was attached to vacuum bottles and removed once no additional fluid could be removed. COMPLICATIONS: None EBL: None PATIENT CONDITION: Stable, unchanged. IMPRESSION: 1. Successful ultrasound guided thoracentesis. The procedure was performed by Felicity Espinoza PA-C. Interpreted By: Ivonne Perez MD Preliminary Report By: Felicity Espinoza PA-C Electronically Signed By: Ivonne Perez MD Dictated Date: 12/29/2017 3:50:43 PM Prelim Date: 12/29/2017 3:51:32 PM Sign Date: 12/29/2017 4:01:16 PM XR CHEST 2 VIEWS Observed: 12/26/2017 Status: F Source: [facility] 12:38 PM [facility] REPOSITORY ORIGINAL XR CHEST 2 VIEWS CLINICAL STATEMENT: shortness of breath COMPARISON: 12/01/2017 FINDINGS:Extensive postoperative changes to the sternum and mediastinum are noted. The cardiac contours are mildly enlarged. There are continued pleural and parenchymal changes obscuring cardiac and hem idiaphragm contours with mild improvement in the LEFT midlung. Coarsened lung markings in the mid and upper hemithoraces are noted bilaterally. Degenerative changes are present throughout the osseous st ructures with slight anterior height loss of the lower thoracic spine. IMPRESSION:Minimal decreased pleural fluid Interpreted By: Shaye Deleon MD Preliminary Report By: Shaye Deleon MD Electronically Signed By: Shaye Deleon MD Dictated Date: 12/26/2017 1:23:42 PM Prelim Date: 12/26/2017 1:23:42 PM Sign Date: 12/26/2017 1:24:20 PM BMP Collected: 12/18/2017 Status: F Source: [facility] 5:08 AM [facility] REPOSITORY TYPE CODE TESTS RESULT OUT OF REFERENCE UNITS RANGE LAB GLU(LOINC) 83-110 mg/dL Glucose High Level 145 LAB NA(LOINC) 136-146 mEq/L Sodium Level 138 LAB K(LOINC) 3.5-5.1 mEq/L Potassium High Level 5.7 LAB CL(LOINC) 98-107 mEq/L Chloride 104 LAB CO2(LOINC) 23-31 mEq/L CO2 30 LAB EBAL(LOINC mEq/L ) Electrolyte Balance 4.0 LAB BUN(LOINC) 7.0-18.0 mg/dL BUN High 19.9 LAB CRE(LOINC) 0.6-1.2 mg/dL Creatinine Lvl (s) 1.2 LAB BC(LOINC) 7-27 ratio BUN/Creatinine 17 Ratio LAB CA(LOINC) 8.4-10.2 mg/dL Calcium Lvl 9.0 Performed By: #### BMP, GFR #### [id number] [place], [place] [address] .GFR Collected: 12/18/2017 Status: F Source: [facility] 5:08 AM [facility] REPOSITORY TYPE CODE TESTS RESULT OUT OF REFERENCE UNITS RANGE LAB GFRAA(LOINC ml/min/1.73 ) sqm GFR 54 Lao Result Comment: GFR Population mean for , Non- Americans Ages 20-29 = 116 mL/min/1.73 sq.m. Ages 30-39 = 107 mL/min/1.73 sq.m. Ages 40-49 = 99 mL/min/1.73 sq.m. Ages 50-59 = 93 mL/min/1.73 sq.m. Ages 60-69 = 85 mL/min/1.73 sq.m. Ages 70+ = 75 mL/min/1.73 sq.m. Chronic Kidney Disease: Less than 60 mL/min/1.73 square meters End Stage Renal Disease: Less than 15 mL/min/1.73 square meters LAB GFRNO(LOINC) ml/min/1.73sqm GFR Non- 44 Result Comment: GFR Population mean for , Non- Americans Ages 20-29 = 116 mL/min/1.73 sq.m. Ages 30-39 = 107 mL/min/1.73 sq.m. Ages 40-49 = 99 mL/min/1.73 sq.m. Ages 50-59 = 93 mL/min/1.73 sq.m. Ages 60-69 = 85 mL/min/1.73 sq.m. Ages 70+ = 75 mL/min/1.73 sq.m. Chronic Kidney Disease: Less than 60 mL/min/1.73 square meters End Stage Renal Disease: Less than 15 mL/min/1.73 square meters Performed By: #### BMP, GFR #### [id number] [place], [place] [address] BMP Collected: 12/16/2017 Status: F Source: [facility] 6:43 AM [facility] REPOSITORY TYPE CODE TESTS RESULT OUT OF REFERENCE UNITS RANGE LAB GLU(LOINC) 83-110 mg/dL Glucose High Level 152 LAB NA(LOINC) 136-146 mEq/L Sodium Level 136 LAB K(LOINC) 3.5-5.1 mEq/L Potassium Level 4.8 LAB CL(LOINC) 98-107 mEq/L Chloride 101 LAB CO2(LOINC) 23-31 mEq/L CO2 26 LAB EBAL(LOINC mEq/L ) Electrolyte Balance 9.0 LAB BUN(LOINC) 7.0-18.0 mg/dL BUN High 23.0 LAB CRE(LOINC) 0.6-1.2 mg/dL Creatinine Lvl (s) 1.2 LAB BC(LOINC) 7-27 ratio BUN/Creatinine 19 Ratio LAB CA(LOINC) 8.4-10.2 mg/dL Calcium Lvl 8.5 Performed By: #### BMP, GFR #### [address] [address] .GFR Collected: 12/16/2017 Status: F Source: [facility] 6:43 AM [facility]POSIT[facility] TYPE CODE TESTS RESULT OUT OF REFERENCE UNITS RANGE LAB GFRAA(LOINC ml/min/1.73 ) sqm GFR 53 Lao Result Comment: GFR Population mean for , Non- Americans Ages 20-29 = 116 mL/min/1.73 sq.m. Ages 30-39 = 107 mL/min/1.73 sq.m. Ages 40-49 = 99 mL/min/1.73 sq.m. Ages 50-59 = 93 mL/min/1.73 sq.m. Ages 60-69 = 85 mL/min/1.73 sq.m. Ages 70+ = 75 mL/min/1.73 sq.m. Chronic Kidney Disease: Less than 60 mL/min/1.73 square meters End Stage Renal Disease: Less than 15 mL/min/1.73 square meters LAB GFRNO(LOINC) ml/min/1.73sqm GFR Non- 44 Result Comment: GFR Population mean for , Non- Americans Ages 20-29 = 116 mL/min/1.73 sq.m. Ages 30-39 = 107 mL/min/1.73 sq.m. Ages 40-49 = 99 mL/min/1.73 sq.m. Ages 50-59 = 93 mL/min/1.73 sq.m. Ages 60-69 = 85 mL/min/1.73 sq.m. Ages 70+ = 75 mL/min/1.73 sq.m. Chronic Kidney Disease: Less than 60 mL/min/1.73 square meters End Stage Renal Disease: Less than 15 mL/min/1.73 square meters Performed By: #### BMP, GFR #### [address] [place], [place] [address] CBC Collected: 12/11/2017 Status: F Source: [facility] 6:17 AM [facility] REPOSITORY TYPE CODE TESTS RESULT OUT OF REFERENCE UNITS RANGE LAB WBC(LOINC) 4.50-10.80 10 3/mcL WBC 10.00 LAB RBCCT(LOINC 4.10-5.30 10 6/mcL ) Low RBC 3.53 LAB HGB(LOINC) 12.0-16.0 G/dL Low Hgb 11.2 LAB HCT(LOINC) 34.0-46.0 % Low Hct 32.6 LAB MCV(LOINC) 80.0-99.0 fL MCV 92.5 LAB MCH(LOINC) 27.0-33.0 pg MCH 31.7 LAB MCHC(LOINC) 32.0-36.0 G/dL MCHC 34.3 LAB RDW(LOINC) 11.5-15.5 % RDW 15.2 LAB PLT(LOINC) 150-450 10 3/mcL Platelet 383 LAB MPV(LOINC) 6.6-10.5 fL MPV 7.9 Performed By: #### CBC, ADIFF, ANEU, BMP, GFR #### [address] [address] .AUTO DIFF Collected: 12/11/2017 Status: F Source: [facility] 6:17 AM [facility] REPOSITORY TYPE CODE TESTS RESULT OUT OF REFERENCE UNITS RANGE LAB EUGENIE(LOINC) 50.0-75.0 % High Neutrophil % 78.8 LAB LYM(LOINC) 20.0-40.0 % Low Lymphocyte % 8.1 LAB MON(LOINC) 2.0-13.0 % Monocyte % 9.1 LAB EO(LOINC) 0.0-6.0 % Eosinophil % 2.8 LAB BAS(LOINC) 0.0-2.5 % Basophil % 1.2 LAB ABLYM(LOIN 0.90-4.32 10 3/mcL C) Low Lymphocyte, 0.80 Absolute LAB NICK(LOINC 0.09-1.40 10 3/mcL ) Monocyte, 0.90 Absolute LAB AEOS(LOINC 0.00-0.65 10 3/mcL ) Eosinophil, 0.30 Absolute LAB ABAS(LOINC 0.00-0.27 10 3/mcL ) Basophil, 0.10 Absolute Performed By: #### CBC, ADIFF, ANEU, BMP, GFR #### [place] [address] .NEUABS Collected: 12/11/2017 Status: F Source: [facility] 6:17 AM [facility] REPOSITORY TYPE CODE TESTS RESULT OUT OF REFERENCE UNITS RANGE LAB ANEU(LOINC) 2.25-8.10 10 3/mcL Neutrophil, 7.90 Absolute Performed By: #### CBC, ADIFF, ANEU, BMP, GFR #### [place] [address] BMP Collected: 12/11/2017 Status: F Source: [facility] 6:17 AM [facility] REPOSITORY TYPE CODE TESTS RESULT OUT OF REFERENCE UNITS RANGE LAB GLU(LOINC) 82-115 mg/dL Glucose High Level 130 LAB NA(LOINC) 136-145 mEq/L Sodium Level 141 LAB K(LOINC) 3.5-5.0 mEq/L Potassium Level 4.3 LAB CL(LOINC) 98-110 mEq/L Chloride 103 LAB CO2(LOINC) 22-32 mEq/L CO2 28 LAB EBAL(LOINC 4.0-15.0 mEq/L ) Electrolyte Balance 10.0 LAB BUN(LOINC) 8.0-22.0 mg/dL BUN High 34.0 LAB CRE(LOINC) 0.50-1.20 mg/dL Creatinine Lvl (s) 0.90 LAB BC(LOINC) 10.0-22.0 ratio High BUN/Creatinine 37.8 Ratio LAB CA(LOINC) 8.4-10.1 mg/dL Calcium Lvl 8.8 Performed By: #### CBC, ADIFF, ANEU, BMP, GFR #### [place] [address] .GFR Collected: 12/11/2017 Status: F Source: [facility] 6:17 AM [facility] REPOSITORY TYPE CODE TESTS RESULT OUT OF REFERENCE UNITS RANGE LAB GFRAA(LOINC ml/min/1.73 ) sqm GFR >60 Lao Result Comment: GFR Population mean for , Non- Americans Ages 20-29 = 116 mL/min/1.73 sq.m. Ages 30-39 = 107 mL/min/1.73 sq.m. Ages 40-49 = 99 mL/min/1.73 sq.m. Ages 50-59 = 93 mL/min/1.73 sq.m. Ages 60-69 = 85 mL/min/1.73 sq.m. Ages 70+ = 75 mL/min/1.73 sq.m. Chronic Kidney Disease: Less than 60 mL/min/1.73 square meters End Stage Renal Disease: Less than 15 mL/min/1.73 square meters LAB GFRNO(LOINC) ml/min/1.73sqm GFR Non- >60 Result Comment: GFR Population mean for , Non- Americans Ages 20-29 = 116 mL/min/1.73 sq.m. Ages 30-39 = 107 mL/min/1.73 sq.m. Ages 40-49 = 99 mL/min/1.73 sq.m. Ages 50-59 = 93 mL/min/1.73 sq.m. Ages 60-69 = 85 mL/min/1.73 sq.m. Ages 70+ = 75 mL/min/1.73 sq.m. Chronic Kidney Disease: Less than 60 mL/min/1.73 square meters End Stage Renal Disease: Less than 15 mL/min/1.73 square meters Performed By: #### CBC, ADIFF, ANEU, BMP, GFR #### [address] [address] CBC Collected: 12/10/2017 Status: F Source: [facility] 9:06 AM [facility] REPOSITORY TYPE CODE TESTS RESULT OUT OF REFERENCE UNITS RANGE LAB WBC(LOINC) 4.50-10.80 10 3/mcL WBC 10.20 LAB RBCCT(LOINC 4.10-5.30 10 6/mcL ) Low RBC 3.63 LAB HGB(LOINC) 12.0-16.0 G/dL Low Hgb 11.3 LAB HCT(LOINC) 34.0-46.0 % Hct 34.1 LAB MCV(LOINC) 80.0-99.0 fL MCV 94.1 LAB MCH(LOINC) 27.0-33.0 pg MCH 31.1 LAB MCHC(LOINC) 32.0-36.0 G/dL MCHC 33.1 LAB RDW(LOINC) 11.5-15.5 % RDW 15.3 LAB PLT(LOINC) 150-450 10 3/mcL Platelet 374 LAB MPV(LOINC) 6.6-10.5 fL MPV 8.2 Performed By: #### CBC, ADIFF, ANEU, GFR, BMP #### [address] [address] .AUTO DIFF Collected: 12/10/2017 Status: F Source: [facility] 9:06 AM [facility] REPOSITORY TYPE CODE TESTS RESULT OUT OF REFERENCE UNITS RANGE LAB EUGENIE(LOINC) 50.0-75.0 % High Neutrophil % 82.1 LAB LYM(LOINC) 20.0-40.0 % Low Lymphocyte % 7.1 LAB MON(LOINC) 2.0-13.0 % Monocyte % 8.5 LAB EO(LOINC) 0.0-6.0 % Eosinophil % 1.2 LAB BAS(LOINC) 0.0-2.5 % Basophil % 1.1 LAB ABLYM(LOIN 0.90-4.32 10 3/mcL C) Low Lymphocyte, 0.70 Absolute LAB NICK(LOINC 0.09-1.40 10 3/mcL ) Monocyte, 0.90 Absolute LAB AEOS(LOINC 0.00-0.65 10 3/mcL ) Eosinophil, 0.10 Absolute LAB ABAS(LOINC 0.00-0.27 10 3/mcL ) Basophil, 0.10 Absolute Performed By: #### CBC, ADIFF, ANEU, GFR, BMP #### [address] [address] .NEUABS Collected: 12/10/2017 Status: F Source: [facility] 9:06 AM [facility] REPOSITORY TYPE CODE TESTS RESULT OUT OF REFERENCE UNITS RANGE LAB ANEU(LOINC) 2.25-8.10 10 3/mcL High Neutrophil, 8.40 Absolute Performed By: #### CBC, ADIFF, ANEU, GFR, BMP #### [address] [address] .GFR Collected: 12/10/2017 Status: F Source: [facility] 9:06 AM [facility] REPOSITORY TYPE CODE TESTS RESULT OUT OF REFERENCE UNITS RANGE LAB GFRAA(LOINC ml/min/1.73 ) sqm GFR 60 Lao Result Comment: GFR Population mean for , Non- Americans Ages 20-29 = 116 mL/min/1.73 sq.m. Ages 30-39 = 107 mL/min/1.73 sq.m. Ages 40-49 = 99 mL/min/1.73 sq.m. Ages 50-59 = 93 mL/min/1.73 sq.m. Ages 60-69 = 85 mL/min/1.73 sq.m. Ages 70+ = 75 mL/min/1.73 sq.m. Chronic Kidney Disease: Less than 60 mL/min/1.73 square meters End Stage Renal Disease: Less than 15 mL/min/1.73 square meters LAB GFRNO(LOINC) ml/min/1.73sqm GFR Non- 50 Result Comment: GFR Population mean for , Non- Americans Ages 20-29 = 116 mL/min/1.73 sq.m. Ages 30-39 = 107 mL/min/1.73 sq.m. Ages 40-49 = 99 mL/min/1.73 sq.m. Ages 50-59 = 93 mL/min/1.73 sq.m. Ages 60-69 = 85 mL/min/1.73 sq.m. Ages 70+ = 75 mL/min/1.73 sq.m. Chronic Kidney Disease: Less than 60 mL/min/1.73 square meters End Stage Renal Disease: Less than 15 mL/min/1.73 square meters Performed By: #### CBC, ADIFF, ANEU, GFR, BMP #### [facility] [address] [place] [address] BMP Collected: 12/10/2017 Status: F Source: [facility] 9:06 AM [facility] REPOSITORY TYPE CODE TESTS RESULT OUT OF REFERENCE UNITS RANGE LAB GLU(LOINC) 82-115 mg/dL Glucose High Level 189 LAB NA(LOINC) 136-145 mEq/L Sodium Level 139 LAB K(LOINC) 3.5-5.0 mEq/L Potassium Level 4.1 LAB CL(LOINC) 98-110 mEq/L Chloride 101 LAB CO2(LOINC) 22-32 mEq/L CO2 29 LAB EBAL(LOINC 4.0-15.0 mEq/L ) Electrolyte Balance 9.0 LAB BUN(LOINC) 8.0-22.0 mg/dL BUN High 38.0 LAB CRE(LOINC) 0.50-1.20 mg/dL Creatinine Lvl (s) 1.08 LAB BC(LOINC) 10.0-22.0 ratio High BUN/Creatinine 35.2 Ratio LAB CA(LOINC) 8.4-10.1 mg/dL Calcium Lvl 8.4 Performed By: #### CBC, ADIFF, ANEU, GFR, BMP #### [address] [address] CBC Collected: 12/08/2017 Status: F Source: [facility] 6:42 [facility] REPOSITORY TYPE CODE TESTS RESULT OUT OF REFERENCE UNITS RANGE LAB WBC(LOINC) 4.50-10.80 10 3/mcL High WBC 13.90 LAB RBCCT(LOINC 4.10-5.30 10 6/mcL ) Low RBC 3.81 LAB HGB(LOINC) 12.0-16.0 G/dL Low Hgb 11.9 LAB HCT(LOINC) 34.0-46.0 % Hct 35.9 LAB MCV(LOINC) 80.0-99.0 fL MCV 94.0 LAB MCH(LOINC) 27.0-33.0 pg MCH 31.2 LAB MCHC(LOINC) 32.0-36.0 G/dL MCHC 33.1 LAB RDW(LOINC) 11.5-15.5 % RDW 15.4 LAB PLT(LOINC) 150-450 10 3/mcL Platelet 280 LAB MPV(LOINC) 6.6-10.5 fL MPV 8.1 Performed By: #### CBC, ADIFF, ANEU, BMP, GFR, MG #### [address] [address] .AUTO DIFF Collected: 12/08/2017 Status: F Source: [facility] 6:42 AM [facility] REPOSITORY TYPE CODE TESTS RESULT OUT OF REFERENCE UNITS RANGE LAB EUGENIE(LOINC) 50.0-75.0 % High Neutrophil % 82.0 LAB LYM(LOINC) 20.0-40.0 % Low Lymphocyte % 8.0 LAB MON(LOINC) 2.0-13.0 % Monocyte % 8.0 LAB EO(LOINC) 0.0-6.0 % Eosinophil % 1.2 LAB BAS(LOINC) 0.0-2.5 % Basophil % 0.8 LAB ABLYM(LOIN 0.90-4.32 10 3/mcL C) Lymphocyte, 1.10 Absolute LAB NICK(LOINC 0.09-1.40 10 3/mcL ) Monocyte, 1.10 Absolute LAB AEOS(LOINC 0.00-0.65 10 3/mcL ) Eosinophil, 0.20 Absolute LAB ABAS(LOINC 0.00-0.27 10 3/mcL ) Basophil, 0.10 Absolute Performed By: #### CBC, ADIFF, ANEU, BMP, GFR, MG #### [place] [address] .NEUABS Collected: 12/08/2017 Status: F Source: [facility] 6:42 AM [facility] REPOSITORY TYPE CODE TESTS RESULT OUT OF REFERENCE UNITS RANGE LAB ANEU(LOINC) 2.25-8.10 10 3/mcL High Neutrophil, 11.40 Absolute Performed By: #### CBC, ADIFF, ANEU, BMP, GFR, MG #### [place] [address] BMP Collected: 12/08/2017 Status: F Source: [facility] 6:42 [facility] REPOSITORY TYPE CODE TESTS RESULT OUT OF REFERENCE UNITS RANGE LAB GLU(LOINC) 82-115 mg/dL Low Glucose Level 78 LAB NA(LOINC) 136-145 mEq/L Sodium Level 138 LAB K(LOINC) 3.5-5.0 mEq/L Potassium Level 4.5 LAB CL(LOINC) 98-110 mEq/L Chloride 100 LAB CO2(LOINC) 22-32 mEq/L CO2 29 LAB EBAL(LOINC 4.0-15.0 mEq/L ) Electrolyte Balance 9.0 LAB BUN(LOINC) 8.0-22.0 mg/dL BUN 21.0 LAB CRE(LOINC) 0.50-1.20 mg/dL Creatinine Lvl (s) 1.20 LAB BC(LOINC) 10.0-22.0 ratio BUN/Creatinine 17.5 Ratio LAB CA(LOINC) 8.4-10.1 mg/dL Calcium Lvl 8.6 Performed By: #### CBC, ADIFF, ANEU, BMP, GFR, MG #### [address] [address] .GFR Collected: 12/08/2017 Status: F Source: [facility] 6:42 AM [facility] REPOSITORY TYPE CODE TESTS RESULT OUT OF REFERENCE UNITS RANGE LAB GFRAA(LOINC ml/min/1.73 ) sqm GFR 53 Lao Result Comment: GFR Population mean for , Non- Americans Ages 20-29 = 116 mL/min/1.73 sq.m. Ages 30-39 = 107 mL/min/1.73 sq.m. Ages 40-49 = 99 mL/min/1.73 sq.m. Ages 50-59 = 93 mL/min/1.73 sq.m. Ages 60-69 = 85 mL/min/1.73 sq.m. Ages 70+ = 75 mL/min/1.73 sq.m. Chronic Kidney Disease: Less than 60 mL/min/1.73 square meters End Stage Renal Disease: Less than 15 mL/min/1.73 square meters LAB GFRNO(LOINC) ml/min/1.73sqm GFR Non- 44 Result Comment: GFR Population mean for , Non- Americans Ages 20-29 = 116 mL/min/1.73 sq.m. Ages 30-39 = 107 mL/min/1.73 sq.m. Ages 40-49 = 99 mL/min/1.73 sq.m. Ages 50-59 = 93 mL/min/1.73 sq.m. Ages 60-69 = 85 mL/min/1.73 sq.m. Ages 70+ = 75 mL/min/1.73 sq.m. Chronic Kidney Disease: Less than 60 mL/min/1.73 square meters End Stage Renal Disease: Less than 15 mL/min/1.73 square meters Performed By: #### CBC, ADIFF, ANEU, BMP, GFR, MG #### [address] [address] MG Collected: 12/08/2017 Status: F Source: [facility] 6:42 AM [facility] REPOSITORY TYPE CODE TESTS RESULT OUT OF REFERENCE UNITS RANGE LAB MG(LOINC) 1.6-2.4 mg/dL Magnesium Lvl 1.7 Performed By: #### CBC, ADIFF, ANEU, BMP, GFR, MG #### [address] [address] Observed: 12/07/2017 Status: F Source: [facility] 1:45 PM [facility] REPOSITORY . MICRO - Microbiology PROCEDURE: Clostridium difficile PCR [^1 *1] SOURCE: Stool BODY SITE: COLLECTED DATE/TIME: 12/07/2017 13:45 EDT RECEIVED DATE/TIME: 12/07/2017 14:06 EDT START DATE/TIME: 12/07/2017 14:06 EDT FREE TEXT SOURCE: FINAL REPORTS Final Report [] Verified Date/Time/Personnel: 12/07/2017 21:45 EDT Clostridium toxin B gene tcdB gene DNA DETECTED. A Positive C. difficile assay detection result does not necessarily indicate the presence of viable organisms. It does however indicate the presence of the tcdB gene and allows for presumptive detection of a Clostridium difficile toxigenic organism. This assay cannot be used for species identification as it does not contain primers and probes specific to Clostridium difficile. As with all PCR-based in vitro diagnostic tests, extremely low levels of target below the limit of of the assay may be detected, but results may not be reproducible. Infection control has been notified. Interpretive Data ^1: Clostridium difficile PCR As with all in vitro diagnostic tests, positive and negative predictive values are highly dependent on prevalence. The [employer] C. difficile PCR Assay performance may vary depending on the prevalence and population tested. Performing Locations *1: This test was performed at: [facility], [address] [place] [address], [address]- [facility] Performed By: #### CDPCR #### [address] [address] CBC Collected: 12/07/2017 Status: F Source: [facility] 9:49 AM [facility] REPOSITORY TYPE CODE TESTS RESULT OUT OF REFERENCE UNITS RANGE LAB WBC(LOINC) 4.50-10.80 10 3/mcL High WBC 19.70 LAB RBCCT(LOINC 4.10-5.30 10 6/mcL ) Low RBC 3.59 LAB HGB(LOINC) 12.0-16.0 G/dL Low Hgb 11.2 LAB HCT(LOINC) 34.0-46.0 % Low Hct 33.9 LAB MCV(LOINC) 80.0-99.0 fL MCV 94.6 LAB MCH(LOINC) 27.0-33.0 pg MCH 31.2 LAB MCHC(LOINC) 32.0-36.0 G/dL MCHC 33.0 LAB RDW(LOINC) 11.5-15.5 % High RDW 15.6 LAB PLT(LOINC) 150-450 10 3/mcL Platelet 281 LAB MPV(LOINC) 6.6-10.5 fL MPV 8.7 Performed By: #### CBCFREDY, ANEU #### [address] [address] .AUTO DIFF Collected: 12/07/2017 Status: F Source: [facility] 9:49 AM [facility] REPOSITORY TYPE CODE TESTS RESULT OUT OF REFERENCE UNITS RANGE LAB EUGENIE(LOINC) 50.0-75.0 % High Neutrophil % 86.3 LAB LYM(LOINC) 20.0-40.0 % Low Lymphocyte % 5.2 LAB MON(LOINC) 2.0-13.0 % Monocyte % 6.9 LAB EO(LOINC) 0.0-6.0 % Eosinophil % 0.8 LAB BAS(LOINC) 0.0-2.5 % Basophil % 0.8 LAB ABLYM(LOIN 0.90-4.32 10 3/mcL C) Lymphocyte, 1.00 Absolute LAB NICK(LOINC 0.09-1.40 10 3/mcL ) Monocyte, 1.40 Absolute LAB AEOS(LOINC 0.00-0.65 10 3/mcL ) Eosinophil, 0.20 Absolute LAB ABAS(LOINC 0.00-0.27 10 3/mcL ) Basophil, 0.20 Absolute Performed By: #### CBC, FREDY, ANEU #### [address] [address] .NEUABS Collected: 12/07/2017 Status: F Source: [facility] 9:49 AM [facility] REPOSITORY TYPE CODE TESTS RESULT OUT OF REFERENCE UNITS RANGE LAB ANEU(LOINC) 2.25-8.10 10 3/mcL High Neutrophil, 17.00 Absolute Performed By: #### CBC, ADIFF, ANEU #### [address] [address] CMP Collected: 12/07/2017 Status: F Source: [facility] 5:18 AM [facility] REPOSITORY TYPE CODE TESTS RESULT OUT OF REFERENCE UNITS RANGE LAB GLU(LOINC) 82-115 mg/dL Glucose Level 101 LAB NA(LOINC) 136-145 mEq/L Sodium Level 138 LAB K(LOINC) 3.5-5.0 mEq/L Potassium Level 4.3 LAB CL(LOINC) 98-110 mEq/L Chloride 103 LAB CO2(LOINC) 22-32 mEq/L CO2 30 LAB EBAL(LOINC 4.0-15.0 mEq/L ) Electrolyte Balance 5.0 LAB BUN(LOINC) 8.0-22.0 mg/dL BUN High 25.0 LAB CRE(LOINC) 0.50-1.20 mg/dL Creatinine Lvl (s) 1.03 LAB BC(LOINC) 10.0-22.0 ratio High BUN/Creatinine 24.3 Ratio LAB CA(LOINC) 8.4-10.1 mg/dL Calcium Lvl 8.7 LAB PROT(LOINC 6.0-8.5 G/dL ) Total Protein 6.1 LAB ALB(LOINC) 3.2-4.8 G/dL Low Albumin Level 2.4 LAB GLB(LOINC) 1.5-3.8 G/dL Globulin 3.7 LAB AG(LOINC) 0.9-1.6 ratio Low A/G Ratio 0.6 LAB BILT(LOINC 0.2-1.2 mg/dL ) Bili Total 0.7 LAB AP(LOINC) 38-126 U/L Alk Phos 120 LAB AST(LOINC) 8-34 U/L AST/SGOT 13 LAB ALT(LOINC) 10-49 U/L ALT/SGPT 17 Performed By: #### CMP, GFR #### [address] [address] .GFR Collected: 12/07/2017 Status: F Source: [facility] 5:18 AM [facility] REPOSITORY TYPE CODE TESTS RESULT OUT OF REFERENCE UNITS RANGE LAB GFRAA(LOINC ml/min/1.73 ) sqm GFR >60 Lao Result Comment: GFR Population mean for , Non- Americans Ages 20-29 = 116 mL/min/1.73 sq.m. Ages 30-39 = 107 mL/min/1.73 sq.m. Ages 40-49 = 99 mL/min/1.73 sq.m. Ages 50-59 = 93 mL/min/1.73 sq.m. Ages 60-69 = 85 mL/min/1.73 sq.m. Ages 70+ = 75 mL/min/1.73 sq.m. Chronic Kidney Disease: Less than 60 mL/min/1.73 square meters End Stage Renal Disease: Less than 15 mL/min/1.73 square meters LAB GFRNO(LOINC) ml/min/1.73sqm GFR Non- 52 Result Comment: GFR Population mean for , Non- Americans Ages 20-29 = 116 mL/min/1.73 sq.m. Ages 30-39 = 107 mL/min/1.73 sq.m. Ages 40-49 = 99 mL/min/1.73 sq.m. Ages 50-59 = 93 mL/min/1.73 sq.m. Ages 60-69 = 85 mL/min/1.73 sq.m. Ages 70+ = 75 mL/min/1.73 sq.m. Chronic Kidney Disease: Less than 60 mL/min/1.73 square meters End Stage Renal Disease: Less than 15 mL/min/1.73 square meters Performed By: #### CMP, GFR #### [facility] [address] [place] [address] Observed: 12/06/2017 Status: F Source: [facility] 2:22 PM [facility] REPOSITORY . MICRO - Microbiology PROCEDURE: Blood Culture (bacterial) [*1] SOURCE: Blood BODY SITE: COLLECTED DATE/TIME: 12/06/2017 14:22 EDT RECEIVED DATE/TIME: 12/06/2017 14:54 EDT START DATE/TIME: 12/06/2017 14:54 EDT FREE TEXT SOURCE: FINAL REPORTS Final Report [] Verified Date/Time/Personnel: 12/11/2017 14:59 EDT Blood Culture: No Growth at 5 days. PRELIMINARY REPORTS Preliminary Report [] Verified Date/Time/Personnel: 12/06/2017 16:00 EDT Culture has been received in lab and is no growth to date. Routine cultures are held for 5 days. Performing Locations *1: This test was performed at: [address] Performed By: #### CBL #### [place] [id number] Observed: 12/06/2017 Status: F Source: [facility] 2:21 PM [facility] REPOSITORY . MICRO - Microbiology PROCEDURE: Blood Culture (bacterial) [*1] SOURCE: Blood BODY SITE: COLLECTED DATE/TIME: 12/06/2017 14:21 EDT RECEIVED DATE/TIME: 12/06/2017 14:54 EDT START DATE/TIME: 12/06/2017 14:54 EDT FREE TEXT SOURCE: FINAL REPORTS Final Report [] Verified Date/Time/Personnel: 12/11/2017 14:59 EDT Blood Culture: No Growth at 5 days. PRELIMINARY REPORTS Preliminary Report [] Verified Date/Time/Personnel: 12/06/2017 16:00 EDT Culture has been received in lab and is no growth to date. Routine cultures are held for 5 days. Performing Locations *1: This test was performed at: [address] Performed By: #### CBL #### [place] [id number] Observed: 12/06/2017 Status: F Source: [facility] 2:04 PM [facility] REPOSITORY . MICRO - Microbiology PROCEDURE: Urine Culture [*1] SOURCE: Urine, [place] Catheter BODY SITE: COLLECTED DATE/TIME: 12/06/2017 14:04 EDT RECEIVED DATE/TIME: 12/06/2017 14:47 EDT START DATE/TIME: 12/06/2017 14:47 EDT FREE TEXT SOURCE: FINAL REPORTS Final Report [] Verified Date/Time/Personnel: 12/10/2017 10:52 EDT 40,000 organisms per mL Group D Enterococcus - Vancomycin Resistant Infection control has been notified. PRELIMINARY REPORTS Preliminary Report [] Verified Date/Time/Personnel: 12/09/2017 11:31 EDT 40,000 organisms per mL Enterococcus faecium Vancomycin result to follow. Preliminary Report [] Verified Date/Time/Personnel: 12/08/2017 09:41 EDT 40,000 organisms per mL Presumptive Group D Enterococcus Final identification and LOURDES to follow. Preliminary Report [] Verified Date/Time/Personnel: 12/07/2017 14:05 EDT Culture results pending. SUSCEPTIBILITY RESULTS Group D Enterococcus - Vancomycin Resistant Antibiotic LOURDES Dilutn LOURDES Interp Ampicillin >8 Resistant Gentamicin <=500 Susceptible synergy Nitrofurantoin <=32 Susceptible Vancomycin >16 Resistant Performing Locations *1: This test was performed at: [facility], [address] [place] [address], [address] [place] [address] Performed By: #### CUR #### [place] [id number] XR CHEST 1 VIEW Observed: 12/06/2017 Status: F Source: [facility] 6:37 AM [facility] REPOSITORY ORIGINAL Clinical history: Short of breath. COMPARISON: Chest x-ray on 12/05/2017. Portable AP radiograph of the chest was obtained at 6:35 AM. Cardiomegaly is unchanged. Patient has had sternotomy with prosthetic heart valves and LEFT atrial appendage clamp in place. Moderate-sized LEFT pleural effusion and small RIGHT pleural effusion are unchanged. There is increasing pulmonary edema compared to chest x-ray on the prior day. Basilar lung consolidation associated w ith the pleural fluid is present. IMPRESSION: Moderate pulmonary edema showing worsening since the prior day. Bilateral pleural fluid and basilar lung consolidation without significant change. Interpreted By: Sheng Cristina MD Preliminary Report By: Sheng Cristina MD Electronically Signed By: Sheng Cristina MD Dictated Date: 12/06/2017 7:06:43 AM Prelim Date: 12/06/2017 7:06:43 AM Sign Date: 12/06/2017 7:08:30 AM CBC Collected: 12/06/2017 Status: F Source: [facility] 5:52 AM [facility] REPOSITORY TYPE CODE TESTS RESULT OUT OF REFERENCE UNITS RANGE LAB WBC(LOINC) 4.50-10.80 10 3/mcL High WBC 33.70 LAB RBCCT(LOINC 4.10-5.30 10 6/mcL ) Low RBC 3.80 LAB HGB(LOINC) 12.0-16.0 G/dL Low Hgb 11.7 LAB HCT(LOINC) 34.0-46.0 % Hct 35.7 LAB MCV(LOINC) 80.0-99.0 fL MCV 94.0 LAB MCH(LOINC) 27.0-33.0 pg MCH 30.8 LAB MCHC(LOINC) 32.0-36.0 G/dL MCHC 32.7 LAB RDW(LOINC) 11.5-15.5 % RDW 15.0 LAB PLT(LOINC) 150-450 10 3/mcL Platelet 278 LAB MPV(LOINC) 6.6-10.5 fL MPV 7.9 Performed By: #### CBC, MORPH, ADIFF, ANEU #### [address] [address] .MORPH Collected: 12/06/2017 Status: F Source: [facility] 5:52 AM [facility] REPOSITORY TYPE CODE TESTS RESULT OUT OF REFERENCE UNITS RANGE LAB PLTE(LOINC) Platelet Normal Estimate LAB RBCM(LOINC) RBC Morph Normal Performed By: #### CBC, MORPH, ADIFF, ANEU #### [place] [id number] .AUTO DIFF Collected: 12/06/2017 Status: F Source: [facility] 5:52 AM [facility] REPOSITORY TYPE CODE TESTS RESULT OUT OF REFERENCE UNITS RANGE LAB EUGENIE(LOINC) 50.0-75.0 % High Neutrophil % 94.2 LAB LYM(LOINC) 20.0-40.0 % Low Lymphocyte % 2.3 LAB MON(LOINC) 2.0-13.0 % Monocyte % 3.1 LAB EO(LOINC) 0.0-6.0 % Eosinophil % 0.1 LAB BAS(LOINC) 0.0-2.5 % Basophil % 0.3 LAB ABLYM(LOIN 0.90-4.32 10 3/mcL C) Low Lymphocyte, 0.80 Absolute LAB NICK(LOINC 0.09-1.40 10 3/mcL ) Monocyte, 1.10 Absolute LAB AEOS(LOINC 0.00-0.65 10 3/mcL ) Eosinophil, 0.00 Absolute LAB ABAS(LOINC 0.00-0.27 10 3/mcL ) Basophil, 0.10 Absolute Performed By: #### CBC, MORPH, ADIFF, ANEU #### [place] [address] .NEUABS Collected: 12/06/2017 Status: F Source: [facility] 5:52 AM [facility] REPOSITORY TYPE CODE TESTS RESULT OUT OF REFERENCE UNITS RANGE LAB ANEU(LOINC) 2.25-8.10 10 3/mcL High Neutrophil, 31.80 Absolute Performed By: #### CBC, MORPH, ADIFF, ANEU #### [place] [address] MG Collected: 12/06/2017 Status: F Source: [facility] 5:52 AM [facility] REPOSITORY TYPE CODE TESTS RESULT OUT OF REFERENCE UNITS RANGE LAB MG(LOINC) 1.6-2.4 mg/dL Magnesium Lvl 2.0 Performed By: #### MG, CMP, GFR #### [place] [address] CMP Collected: 12/06/2017 Status: F Source: [facility] 5:52 AM [facility] REPOSITORY TYPE CODE TESTS RESULT OUT OF REFERENCE UNITS RANGE LAB GLU(LOINC) 82-115 mg/dL Glucose Level 101 LAB NA(LOINC) 136-145 mEq/L Sodium Level 141 LAB K(LOINC) 3.5-5.0 mEq/L Potassium Level 4.4 LAB CL(LOINC) 98-110 mEq/L Chloride 102 LAB CO2(LOINC) 22-32 mEq/L CO2 29 LAB EBAL(LOINC 4.0-15.0 mEq/L ) Electrolyte Balance 10.0 LAB BUN(LOINC) 8.0-22.0 mg/dL BUN High 25.0 LAB CRE(LOINC) 0.50-1.20 mg/dL Creatinine Lvl (s) 1.09 LAB BC(LOINC) 10.0-22.0 ratio High BUN/Creatinine 22.9 Ratio LAB CA(LOINC) 8.4-10.1 mg/dL Calcium Lvl 8.5 LAB PROT(LOINC 6.0-8.5 G/dL ) Low Total Protein 5.9 LAB ALB(LOINC) 3.2-4.8 G/dL Low Albumin Level 2.7 LAB GLB(LOINC) 1.5-3.8 G/dL Globulin 3.2 LAB AG(LOINC) 0.9-1.6 ratio Low A/G Ratio 0.8 LAB BILT(LOINC 0.2-1.2 mg/dL ) Bili Total 0.5 LAB AP(LOINC) 38-126 U/L Alk Phos High 130 LAB AST(LOINC) 8-34 U/L AST/SGOT 25 LAB ALT(LOINC) 10-49 U/L ALT/SGPT 23 Performed By: #### MG, CMP, GFR #### [facility] [address] [place] [address] .GFR Collected: 12/06/2017 Status: F Source: [facility] 5:52 AM [facility]POSIT[facility] TYPE CODE TESTS RESULT OUT OF REFERENCE UNITS RANGE LAB GFRAA(LOINC ml/min/1.73 ) sqm GFR 59 Lao Result Comment: GFR Population mean for , Non- Americans Ages 20-29 = 116 mL/min/1.73 sq.m. Ages 30-39 = 107 mL/min/1.73 sq.m. Ages 40-49 = 99 mL/min/1.73 sq.m. Ages 50-59 = 93 mL/min/1.73 sq.m. Ages 60-69 = 85 mL/min/1.73 sq.m. Ages 70+ = 75 mL/min/1.73 sq.m. Chronic Kidney Disease: Less than 60 mL/min/1.73 square meters End Stage Renal Disease: Less than 15 mL/min/1.73 square meters LAB GFRNO(LOINC) ml/min/1.73sqm GFR Non- 49 Result Comment: GFR Population mean for , Non- Americans Ages 20-29 = 116 mL/min/1.73 sq.m. Ages 30-39 = 107 mL/min/1.73 sq.m. Ages 40-49 = 99 mL/min/1.73 sq.m. Ages 50-59 = 93 mL/min/1.73 sq.m. Ages 60-69 = 85 mL/min/1.73 sq.m. Ages 70+ = 75 mL/min/1.73 sq.m. Chronic Kidney Disease: Less than 60 mL/min/1.73 square meters End Stage Renal Disease: Less than 15 mL/min/1.73 square meters Performed By: #### MG, CMP, GFR #### [place] [id number] [place] [address] CT THORAX W/O Observed: 12/05/2017 Status: F Source: [employer] [facility] 4:47 PM [facility] REPOSITORY ORIGINAL CT THORAX W/O CONTRAST, 12/05/2017 5:12 PM INDICATION: pleural effusion COMPARISON: No Technique: Chest CT with sagittal and coronal reconstructions. This exam was performed according to our departmental dose optimization program, and includes the following measures where applicable: automated exposure control, adjustment of the mAs and/or kVp accord ing to patient size and/or exam, and an iterative reconstruction algorithm. FINDINGS: There are sternotomy wires and mediastinal surgical clips. There are small to moderate Pleural effusions on both sides, slightly greater on the left. There is mild fluid in the left major fiss ure. There is mild associated basilar atelectasis. The lungs are otherwise clear. There is no lymphadenopathy. IMPRESSION: Bilateral effusions with associated atelectasis. Interpreted By: Telly Ugarte MD Preliminary Report By: Telly Ugarte MD Electronically Signed By: Telly Ugarte MD Dictated Date: 12/05/2017 7:18:54 PM Prelim Date: 12/05/2017 7:18:54 PM Sign Date: 12/05/2017 7:21:10 PM XR CHEST 2 VIEWS Observed: 12/05/2017 Status: F Source: [employer] 12:30 PM [facility] REPOSITORY ORIGINAL XR CHEST 2 VIEWS, 12/05/2017 4:57 PM INDICATION: pleural effusion COMPARISON: Previous day FINDINGS: Sternotomy as, valve prosthesis and appendage clip are unchanged. There are small pleural effusions, greater on the left. There is mild hazy and streaky airspace opacities in the lung bases, a lso greater on the left. The pulmonary vasculature is unremarkable in appearance. There is mild cardiomegaly. IMPRESSION: Small effusions, left greater than right, with associated atelectasis. Mild improvement since the previous examination. Interpreted By: Telly Ugarte MD Preliminary Report By: Telly Ugarte MD Electronically Signed By: Telly Ugarte MD Dictated Date: 12/05/2017 5:58:33 PM Prelim Date: 12/05/2017 5:58:33 PM Sign Date: 12/05/2017 5:59:35 PM CMP Collected: 12/05/2017 Status: F Source: [facility] 6:29 AM [facility] REPOSITORY TYPE CODE TESTS RESULT OUT OF REFERENCE UNITS RANGE LAB GLU(LOINC) 82-115 mg/dL Glucose High Level 139 LAB NA(LOINC) 136-145 mEq/L Sodium Level 140 LAB K(LOINC) 3.5-5.0 mEq/L Potassium Level 3.8 LAB CL(LOINC) 98-110 mEq/L Chloride 100 LAB CO2(LOINC) 22-32 mEq/L CO2 32 LAB EBAL(LOINC 4.0-15.0 mEq/L ) Electrolyte Balance 8.0 LAB BUN(LOINC) 8.0-22.0 mg/dL BUN High 26.0 LAB CRE(LOINC) 0.50-1.20 mg/dL Creatinine Lvl (s) 1.17 LAB BC(LOINC) 10.0-22.0 ratio High BUN/Creatinine 22.2 Ratio LAB CA(LOINC) 8.4-10.1 mg/dL Calcium Lvl 8.7 LAB PROT(LOINC 6.0-8.5 G/dL ) Total Protein 6.5 LAB ALB(LOINC) 3.2-4.8 G/dL Low Albumin Level 2.9 LAB GLB(LOINC) 1.5-3.8 G/dL Globulin 3.6 LAB AG(LOINC) 0.9-1.6 ratio Low A/G Ratio 0.8 LAB BILT(LOINC 0.2-1.2 mg/dL ) Bili Total 0.5 LAB AP(LOINC) 38-126 U/L Alk Phos High 127 LAB AST(LOINC) 8-34 U/L AST/SGOT 19 LAB ALT(LOINC) 10-49 U/L ALT/SGPT 22 Performed By: #### CMP, GFR #### [place] [address] .GFR Collected: 12/05/2017 Status: F Source: [facility] 6:29 AM [facility] REPOSITORY TYPE CODE TESTS RESULT OUT OF REFERENCE UNITS RANGE LAB GFRAA(LOINC ml/min/1.73 ) sqm GFR 55 Lao Result Comment: GFR Population mean for , Non- Americans Ages 20-29 = 116 mL/min/1.73 sq.m. Ages 30-39 = 107 mL/min/1.73 sq.m. Ages 40-49 = 99 mL/min/1.73 sq.m. Ages 50-59 = 93 mL/min/1.73 sq.m. Ages 60-69 = 85 mL/min/1.73 sq.m. Ages 70+ = 75 mL/min/1.73 sq.m. Chronic Kidney Disease: Less than 60 mL/min/1.73 square meters End Stage Renal Disease: Less than 15 mL/min/1.73 square meters LAB GFRNO(LOINC) ml/min/1.73sqm GFR Non- 45 Result Comment: GFR Population mean for , Non- Americans Ages 20-29 = 116 mL/min/1.73 sq.m. Ages 30-39 = 107 mL/min/1.73 sq.m. Ages 40-49 = 99 mL/min/1.73 sq.m. Ages 50-59 = 93 mL/min/1.73 sq.m. Ages 60-69 = 85 mL/min/1.73 sq.m. Ages 70+ = 75 mL/min/1.73 sq.m. Chronic Kidney Disease: Less than 60 mL/min/1.73 square meters End Stage Renal Disease: Less than 15 mL/min/1.73 square meters Performed By: #### CMP, GFR #### [place] [address] BMP Collected: 12/05/2017 Status: F Source: [facility] 6:29 AM [facility] REPOSITORY TYPE CODE TESTS RESULT OUT OF REFERENCE UNITS RANGE LAB GLU(LOINC) 82-115 mg/dL Glucose High Level 139 LAB NA(LOINC) 136-145 mEq/L Sodium Level 139 LAB K(LOINC) 3.5-5.0 mEq/L Potassium Level 3.8 LAB CL(LOINC) 98-110 mEq/L Chloride 100 LAB CO2(LOINC) 22-32 mEq/L CO2 32 LAB EBAL(LOINC 4.0-15.0 mEq/L ) Electrolyte Balance 7.0 LAB BUN(LOINC) 8.0-22.0 mg/dL BUN High 28.0 LAB CRE(LOINC) 0.50-1.20 mg/dL Creatinine Lvl (s) 1.15 LAB BC(LOINC) 10.0-22.0 ratio High BUN/Creatinine 24.3 Ratio LAB CA(LOINC) 8.4-10.1 mg/dL Calcium Lvl 8.6 Performed By: #### BMP #### [place] [address] XR CHEST 1 VIEW Observed: 12/04/2017 Status: F Source: [facility] 2:24 PM [facility] REPOSITORY [facility]IGINAL Clinical history: Congestive heart failure. COMPARISON: None Portable AP radiograph of the chest was obtained at 2:35 PM. The heart is moderately enlarged. Patient has had sternotomy. LEFT atrial appendage clamp is in place. There are moderate-sized bilateral pleural effusions. Mild vascular congestion is present. There is basilar lung consolidation associated with the pleural fluid. IMPRESSION: Mild vascular congestion and moderate-sized bilateral pleural effusions. Cardiomegaly. Interpreted By: Sheng Cristina MD Preliminary Report By: Sheng Cristina MD Electronically Signed By: Sheng Cristina MD Dictated Date: 12/04/2017 11:52:51 PM Prelim Date: 12/04/2017 11:52:51 PM Sign Date: 12/04/2017 11:54:20 PM MG Collected: 12/04/2017 Status: F Source: [place] [employer] 6:43 AM [facility] REPOSITORY TYPE CODE TESTS RESULT OUT OF REFERENCE UNITS RANGE LAB MG(LOINC) 1.6-2.4 mg/dL Magnesium Lvl 1.7 Performed By: #### MG, BMP, GFR #### [place] [address] BMP Collected: 12/04/2017 Status: F Source: [facility] 6:43 AM [facility] REPOSITORY TYPE CODE TESTS RESULT OUT OF REFERENCE UNITS RANGE LAB GLU(LOINC) 82-115 mg/dL Glucose High Level 141 LAB NA(LOINC) 136-145 mEq/L Sodium Level 140 LAB K(LOINC) 3.5-5.0 mEq/L Potassium Level 3.8 LAB CL(LOINC) 98-110 mEq/L Chloride 102 LAB CO2(LOINC) 22-32 mEq/L CO2 30 LAB EBAL(LOINC 4.0-15.0 mEq/L ) Electrolyte Balance 8.0 LAB BUN(LOINC) 8.0-22.0 mg/dL BUN High 33.0 LAB CRE(LOINC) 0.50-1.20 mg/dL Creatinine High Lvl (s) 1.34 LAB BC(LOINC) 10.0-22.0 ratio High BUN/Creatinine 24.6 Ratio LAB CA(LOINC) 8.4-10.1 mg/dL Low Calcium Lvl 8.2 Performed By: #### MG, BMP, GFR #### [address] [address] .GFR Collected: 12/04/2017 Status: F Source: [facility] 6:43 AM [facility] REPOSITORY TYPE CODE TESTS RESULT OUT OF REFERENCE UNITS RANGE LAB GFRAA(LOINC ml/min/1.73 ) sqm GFR 47 Lao Result Comment: GFR Population mean for , Non- Americans Ages 20-29 = 116 mL/min/1.73 sq.m. Ages 30-39 = 107 mL/min/1.73 sq.m. Ages 40-49 = 99 mL/min/1.73 sq.m. Ages 50-59 = 93 mL/min/1.73 sq.m. Ages 60-69 = 85 mL/min/1.73 sq.m. Ages 70+ = 75 mL/min/1.73 sq.m. Chronic Kidney Disease: Less than 60 mL/min/1.73 square meters End Stage Renal Disease: Less than 15 mL/min/1.73 square meters LAB GFRNO(LOINC) ml/min/1.73sqm GFR Non- 39 Result Comment: GFR Population mean for , Non- Americans Ages 20-29 = 116 mL/min/1.73 sq.m. Ages 30-39 = 107 mL/min/1.73 sq.m. Ages 40-49 = 99 mL/min/1.73 sq.m. Ages 50-59 = 93 mL/min/1.73 sq.m. Ages 60-69 = 85 mL/min/1.73 sq.m. Ages 70+ = 75 mL/min/1.73 sq.m. Chronic Kidney Disease: Less than 60 mL/min/1.73 square meters End Stage Renal Disease: Less than 15 mL/min/1.73 square meters Performed By: #### MG, BMP, GFR #### [address] [address] CMP Collected: 12/04/2017 Status: F Source: [facility] 6:43 AM [facility] REPOSITORY TYPE CODE TESTS RESULT OUT OF REFERENCE UNITS RANGE LAB GLU(LOINC) 82-115 mg/dL Glucose High Level 141 LAB NA(LOINC) 136-145 mEq/L Sodium Level 141 LAB K(LOINC) 3.5-5.0 mEq/L Potassium Level 3.8 LAB CL(LOINC) 98-110 mEq/L Chloride 102 LAB CO2(LOINC) 22-32 mEq/L CO2 30 LAB EBAL(LOINC 4.0-15.0 mEq/L ) Electrolyte Balance 9.0 LAB BUN(LOINC) 8.0-22.0 mg/dL BUN High 33.0 LAB CRE(LOINC) 0.50-1.20 mg/dL Creatinine High Lvl (s) 1.32 LAB BC(LOINC) 10.0-22.0 ratio High BUN/Creatinine 25.0 Ratio LAB CA(LOINC) 8.4-10.1 mg/dL Low Calcium Lvl 8.0 LAB PROT(LOINC 6.0-8.5 G/dL ) Total Protein 6.4 LAB ALB(LOINC) 3.2-4.8 G/dL Low Albumin Level 2.7 LAB GLB(LOINC) 1.5-3.8 G/dL Globulin 3.7 LAB AG(LOINC) 0.9-1.6 ratio Low A/G Ratio 0.7 LAB BILT(LOINC 0.2-1.2 mg/dL ) Bili Total 0.5 LAB AP(LOINC) 38-126 U/L Alk Phos High 138 LAB AST(LOINC) 8-34 U/L AST/SGOT 24 LAB ALT(LOINC) 10-49 U/L ALT/SGPT 23 Performed By: #### CMP #### [address] [id number] MG Collected: 12/03/2017 Status: F Source: [facility] 4:16 AM [facility] REPOSITORY TYPE CODE TESTS RESULT OUT OF REFERENCE UNITS RANGE LAB MG(LOINC) 1.6-2.4 mg/dL Magnesium Lvl 1.7 Performed By: #### MG #### [address] [address] CMP Collected: 12/03/2017 Status: F Source: [facility] 4:16 AM [facility] REPOSITORY TYPE CODE TESTS RESULT OUT OF REFERENCE UNITS RANGE LAB GLU(LOINC) 82-115 mg/dL Glucose Level 94 LAB NA(LOINC) 136-145 mEq/L Sodium Level 142 LAB K(LOINC) 3.5-5.0 mEq/L Potassium Level 4.3 LAB CL(LOINC) 98-110 mEq/L Chloride 104 LAB CO2(LOINC) 22-32 mEq/L CO2 29 LAB EBAL(LOINC 4.0-15.0 mEq/L ) Electrolyte Balance 9.0 LAB BUN(LOINC) 8.0-22.0 mg/dL BUN High 36.0 LAB CRE(LOINC) 0.50-1.20 mg/dL Creatinine High Lvl (s) 1.25 LAB BC(LOINC) 10.0-22.0 ratio High BUN/Creatinine 28.8 Ratio LAB CA(LOINC) 8.4-10.1 mg/dL Low Calcium Lvl 8.0 LAB PROT(LOINC 6.0-8.5 G/dL ) Total Protein 6.2 LAB ALB(LOINC) 3.2-4.8 G/dL Low Albumin Level 2.8 LAB GLB(LOINC) 1.5-3.8 G/dL Globulin 3.4 LAB AG(LOINC) 0.9-1.6 ratio Low A/G Ratio 0.8 LAB BILT(LOINC 0.2-1.2 mg/dL ) Bili Total 0.5 LAB AP(LOINC) 38-126 U/L Alk Phos High 130 LAB AST(LOINC) 8-34 U/L AST/SGOT 22 LAB ALT(LOINC) 10-49 U/L ALT/SGPT 20 Performed By: #### CMP, GFR #### [facility] [address] [place] [address] .GFR Collected: 12/03/2017 Status: F Source: [facility] 4:16 AM [facility] REPOSITORY TYPE CODE TESTS RESULT OUT OF REFERENCE UNITS RANGE LAB GFRAA(LOINC ml/min/1.73 ) sqm GFR 51 Lao Result Comment: GFR Population mean for , Non- Americans Ages 20-29 = 116 mL/min/1.73 sq.m. Ages 30-39 = 107 mL/min/1.73 sq.m. Ages 40-49 = 99 mL/min/1.73 sq.m. Ages 50-59 = 93 mL/min/1.73 sq.m. Ages 60-69 = 85 mL/min/1.73 sq.m. Ages 70+ = 75 mL/min/1.73 sq.m. Chronic Kidney Disease: Less than 60 mL/min/1.73 square meters End Stage Renal Disease: Less than 15 mL/min/1.73 square meters LAB GFRNO(LOINC) ml/min/1.73sqm GFR Non- 42 Result Comment: GFR Population mean for , Non- Americans Ages 20-29 = 116 mL/min/1.73 sq.m. Ages 30-39 = 107 mL/min/1.73 sq.m. Ages 40-49 = 99 mL/min/1.73 sq.m. Ages 50-59 = 93 mL/min/1.73 sq.m. Ages 60-69 = 85 mL/min/1.73 sq.m. Ages 70+ = 75 mL/min/1.73 sq.m. Chronic Kidney Disease: Less than 60 mL/min/1.73 square meters End Stage Renal Disease: Less than 15 mL/min/1.73 square meters Performed By: #### CMP, GFR #### [facility] [address] [place] [address] CBC Collected: 12/02/2017 Status: F Source: [facility] 5:23 AM [facility] REPOSIT[facility] TYPE CODE TESTS RESULT OUT OF REFERENCE UNITS RANGE LAB WBC(LOINC) 4.50-10.80 10 3/mcL High WBC 14.20 LAB RBCCT(LOINC 4.10-5.30 10 6/mcL ) Low RBC 3.83 LAB HGB(LOINC) 12.0-16.0 G/dL Hgb 12.0 LAB HCT(LOINC) 34.0-46.0 % Hct 36.1 LAB MCV(LOINC) 80.0-99.0 fL MCV 94.2 LAB MCH(LOINC) 27.0-33.0 pg MCH 31.4 LAB MCHC(LOINC) 32.0-36.0 G/dL MCHC 33.3 LAB RDW(LOINC) 11.5-15.5 % RDW 15.3 LAB PLT(LOINC) 150-450 10 3/mcL Platelet 295 LAB MPV(LOINC) 6.6-10.5 fL MPV 7.3 Performed By: #### CBC, ADIFF, ANEU, BMP, MG, GFR #### [address] [address] .AUTO DIFF Collected: 12/02/2017 Status: F Source: [facility] 5:23 AM [facility] REPOSITORY TYPE CODE TESTS RESULT OUT OF REFERENCE UNITS RANGE LAB EUGENIE(LOINC) 50.0-75.0 % High Neutrophil % 81.2 LAB LYM(LOINC) 20.0-40.0 % Low Lymphocyte % 8.3 LAB MON(LOINC) 2.0-13.0 % Monocyte % 7.2 LAB EO(LOINC) 0.0-6.0 % Eosinophil % 2.4 LAB BAS(LOINC) 0.0-2.5 % Basophil % 0.9 LAB ABLYM(LOIN 0.90-4.32 10 3/mcL C) Lymphocyte, 1.20 Absolute LAB NICK(LOINC 0.09-1.40 10 3/mcL ) Monocyte, 1.00 Absolute LAB AEOS(LOINC 0.00-0.65 10 3/mcL ) Eosinophil, 0.30 Absolute LAB ABAS(LOINC 0.00-0.27 10 3/mcL ) Basophil, 0.10 Absolute Performed By: #### CBC, ADIFF, ANEU, BMP, MG, GFR #### [place] [address] .NEUABS Collected: 12/02/2017 Status: F Source: [facility] 5:23 AM [facility] REPOSITORY TYPE CODE TESTS RESULT OUT OF REFERENCE UNITS RANGE LAB ANEU(LOINC) 2.25-8.10 10 3/mcL High Neutrophil, 11.50 Absolute Performed By: #### CBC, ADIFF, ANEU, BMP, MG, GFR #### [place] [address] BMP Collected: 12/02/2017 Status: F Source: [facility] 5:23 AM [facility] REPOSITORY TYPE CODE TESTS RESULT OUT OF REFERENCE UNITS RANGE LAB GLU(LOINC) 82-115 mg/dL Low Glucose Level 79 LAB NA(LOINC) 136-145 mEq/L Sodium Level 142 LAB K(LOINC) 3.5-5.0 mEq/L Potassium Level 4.0 LAB CL(LOINC) 98-110 mEq/L Chloride 104 LAB CO2(LOINC) 22-32 mEq/L CO2 30 LAB EBAL(LOINC 4.0-15.0 mEq/L ) Electrolyte Balance 8.0 LAB BUN(LOINC) 8.0-22.0 mg/dL BUN High 33.0 LAB CRE(LOINC) 0.50-1.20 mg/dL Creatinine High Lvl (s) 1.27 LAB BC(LOINC) 10.0-22.0 ratio High BUN/Creatinine 26.0 Ratio LAB CA(LOINC) 8.4-10.1 mg/dL Calcium Lvl 8.5 Performed By: #### CBC, ADIFF, ANEU, BMP, MG, GFR #### [address] [id number] MG Collected: 12/02/2017 Status: F Source: [facility] 5:23 AM [facility] REPOSITORY TYPE CODE TESTS RESULT OUT OF REFERENCE UNITS RANGE LAB MG(LOINC) 1.6-2.4 mg/dL Magnesium Lvl 1.9 Performed By: #### CBC, ADIFF, ANEU, BMP, MG, GFR #### [place] [id number] .GFR Collected: 12/02/2017 Status: F Source: [facility] 5:23 AM [facility] REPOSITORY TYPE CODE TESTS RESULT OUT OF REFERENCE UNITS RANGE LAB GFRAA(LOINC ml/min/1.73 ) sqm GFR 50 Lao Result Comment: GFR Population mean for , Non- Americans Ages 20-29 = 116 mL/min/1.73 sq.m. Ages 30-39 = 107 mL/min/1.73 sq.m. Ages 40-49 = 99 mL/min/1.73 sq.m. Ages 50-59 = 93 mL/min/1.73 sq.m. Ages 60-69 = 85 mL/min/1.73 sq.m. Ages 70+ = 75 mL/min/1.73 sq.m. Chronic Kidney Disease: Less than 60 mL/min/1.73 square meters End Stage Renal Disease: Less than 15 mL/min/1.73 square meters LAB GFRNO(LOINC) ml/min/1.73sqm GFR Non- 41 Result Comment: GFR Population mean for , Non- Americans Ages 20-29 = 116 mL/min/1.73 sq.m. Ages 30-39 = 107 mL/min/1.73 sq.m. Ages 40-49 = 99 mL/min/1.73 sq.m. Ages 50-59 = 93 mL/min/1.73 sq.m. Ages 60-69 = 85 mL/min/1.73 sq.m. Ages 70+ = 75 mL/min/1.73 sq.m. Chronic Kidney Disease: Less than 60 mL/min/1.73 square meters End Stage Renal Disease: Less than 15 mL/min/1.73 square meters Performed By: #### CBC, ADIFF, ANEU, BMP, MG, GFR #### [place] [address] XR CHEST 1 VIEW Observed: 12/01/2017 Status: F Source: [facility] 9:37 AM [facility] REPOSITORY ORIGINAL XR CHEST 1 VIEW at 9:32 AM CLINICAL STATEMENT: SOB/cough/fever COMPARISON: 11/27/2017 FINDINGS:Mild vascular congestion is identified. No pneumothorax is seen. There are increasing bilateral [id number] pleural effusions with associated atelectasis and/or consolidation. IMPRESSION:Increasing bilateral pleural effusions. Interpreted By: Sharyn Franco MD Preliminary Report By: Sharyn Franco MD Electronically Signed By: Sharyn Franco MD Dictated Date: 12/01/2017 9:46:06 AM Prelim Date: 12/01/2017 9:46:06 AM Sign Date: 12/01/2017 9:46:57 AM ABG Collected: 12/01/2017 Status: F Source: [facility] 8:46 AM [facility] REPOSITORY TYPE CODE TESTS RESULT OUT OF REFERENCE UNITS RANGE LAB PH(LOINC) 7.35-7.45 pH 7.41 LAB PCO2(LOINC) 35.0-45.0 mmHg pCO2 44.3 LAB PO2(LOINC) 80.0-100.0 mmHg pO2 91.0 LAB HCO3(LOINC) 22.0-26.0 mmol/L High HCO3 28.2 LAB TCO2(LOINC) 19-24 mmol/L High CO2 Totl 30 LAB BE(LOINC) -2.4-2.3 mmol/L High Base Excess 4.0 LAB O2SAT(LOINC 95-98 % ) O2 Sat 97 Performed By: #### ABG #### [address] [address] CBC Collected: 12/01/2017 Status: F Source: [facility] 8:46 AM [facility] REPOSITORY TYPE CODE TESTS RESULT OUT OF REFERENCE UNITS RANGE LAB WBC(LOINC) 4.60-10.80 10 3/mcL High WBC 14.30 LAB RBCCT(LOINC 4.20-5.40 10 6/mcL ) RBC 4.45 LAB HGB(LOINC) 12.0-16.0 G/dL Hgb 14.0 LAB HCT(LOINC) 37.0-47.0 % Hct 41.5 LAB MCV(LOINC) 80.0-94.0 fL MCV 93.2 LAB MCH(LOINC) 27.0-31.2 pg High MCH 31.4 LAB MCHC(LOINC) 33.0-37.0 G/dL MCHC 33.7 LAB RDW(LOINC) 11.5-14.5 % High RDW 15.3 LAB PLT(LOINC) 130-400 10 3/mcL Platelet 378 LAB MPV(LOINC) 7.4-10.4 fL MPV 7.5 Performed By: #### CBC, ADIFF, ANEU, LAC, GFR, BMP, TROP #### [place] [id number] [place], [place] [address] .AUTO DIFF Collected: 12/01/2017 Status: F Source: [facility] 8:46 AM [facility] REPOSITORY TYPE CODE TESTS RESULT OUT OF REFERENCE UNITS RANGE LAB EUGENIE(LOINC) 37.0-80.0 % High Neutrophil % 81.4 LAB LYM(LOINC) 10.0-50.0 % Low Lymphocyte % 9.8 LAB MON(LOINC) 1.7-13.0 % Monocyte % 5.4 LAB EO(LOINC) 0.0-7.0 % Eosinophil % 2.5 LAB BAS(LOINC) 0.0-2.5 % Basophil % 0.9 LAB ABLYM(LOIN 0.77-3.85 10 3/mcL C) Lymphocyte, 1.40 Absolute LAB NICK(LOINC 0.15-1.00 10 3/mcL ) Monocyte, 0.80 Absolute LAB AEOS(LOINC 0.00-0.40 10 3/mcL ) Eosinophil, 0.40 Absolute LAB ABAS(LOINC 0.00-0.19 10 3/mcL ) Basophil, 0.10 Absolute Performed By: #### CBC, ADIFF, ANEU, LAC, GFR, BMP, TROP #### [address] [address] .NEUABS Collected: 12/01/2017 Status: F Source: [facility] 8:46 AM [facility] REPOSITORY TYPE CODE TESTS RESULT OUT OF REFERENCE UNITS RANGE LAB ANEU(LOINC) 2.85-6.16 10 3/mcL High Neutrophil, 11.60 Absolute Performed By: #### CBC, ADIFF, ANEU, LAC, GFR, BMP, TROP #### 10 [address] [address] LAC Collected: 12/01/2017 Status: F Source: [facility] 8:46 AM [facility] REPOSITORY TYPE CODE TESTS RESULT OUT OF REFERENCE UNITS RANGE LAB LAC(LOINC) 0.5-2.2 mmol/L Lactic Acid 2.1 Lvl Performed By: #### CBC, ADIFF, ANEU, LAC, GFR, BMP, TROP #### [address] [address] .GFR Collected: 12/01/2017 Status: F Source: [facility] 8:46 AM [facility] REPOSITORY TYPE CODE TESTS RESULT OUT OF REFERENCE UNITS RANGE LAB GFRAA(LOINC ml/min/1.73 ) sqm GFR 63 Lao Result Comment: GFR Population mean for , Non- Americans Ages 20-29 = 116 mL/min/1.73 sq.m. Ages 30-39 = 107 mL/min/1.73 sq.m. Ages 40-49 = 99 mL/min/1.73 sq.m. Ages 50-59 = 93 mL/min/1.73 sq.m. Ages 60-69 = 85 mL/min/1.73 sq.m. Ages 70+ = 75 mL/min/1.73 sq.m. Chronic Kidney Disease: Less than 60 mL/min/1.73 square meters End Stage Renal Disease: Less than 15 mL/min/1.73 square meters LAB GFRNO(LOINC) ml/min/1.73sqm GFR Non- 52 Result Comment: GFR Population mean for , Non- Americans Ages 20-29 = 116 mL/min/1.73 sq.m. Ages 30-39 = 107 mL/min/1.73 sq.m. Ages 40-49 = 99 mL/min/1.73 sq.m. Ages 50-59 = 93 mL/min/1.73 sq.m. Ages 60-69 = 85 mL/min/1.73 sq.m. Ages 70+ = 75 mL/min/1.73 sq.m. Chronic Kidney Disease: Less than 60 mL/min/1.73 square meters End Stage Renal Disease: Less than 15 mL/min/1.73 square meters Performed By: #### CBC, ADIFF, ANEU, LAC, GFR, BMP, TROP #### [address] [address] BMP Collected: 12/01/2017 Status: F Source: [employer] 8:46 AM [facility] REPOSITORY TYPE CODE TESTS RESULT OUT OF REFERENCE UNITS RANGE LAB GLU(LOINC) 83-110 mg/dL Glucose High Level 140 LAB NA(LOINC) 136-146 mEq/L Sodium Level 142 LAB K(LOINC) 3.5-5.1 mEq/L Potassium Level 5.0 LAB CL(LOINC) 98-107 mEq/L Chloride 104 LAB CO2(LOINC) 23-31 mEq/L CO2 29 LAB EBAL(LOINC mEq/L ) Electrolyte Balance 9.0 LAB BUN(LOINC) 7.0-18.0 mg/dL BUN High 28.4 LAB CRE(LOINC) 0.6-1.2 mg/dL Creatinine Lvl (s) 1.0 LAB BC(LOINC) 7-27 ratio High BUN/Creatinine 28 Ratio LAB CA(LOINC) 8.4-10.2 mg/dL Calcium Lvl 8.9 Performed By: #### CBC, ADIFF, ANEU, LAC, GFR, BMP, TROP #### [id number] [place], [place] [address] TROP Collected: 12/01/2017 Status: F Source: [employer] 8:46 AM [facility] REPOSITORY TYPE CODE TESTS RESULT OUT OF RANGE REFERENCE UNITS LAB TROP(LOINC 0.00-0.30 ng/mL ) Abnormal Alert Troponin 0.78 Result Comment: Above normal(expected)range >=0.30 Consistent with cardiac damage, increased clinical risk and possibility of myocardial infarction. Serial measurements, clinical history, appropriate symptoms and/or ECG changes may help assess possibility of LA. *Other non-acute coronary syndrome conditions such as CHF, myocarditis, pulmonary emboli, sepsis and cardiac surgery could result in myocardial damage and increased troponin levels. Performed By: #### CBC, ADIFF, ANEU, LAC, GFR, BMP, TROP #### [address] [place], [place] [address] PBNP Collected: 12/01/2017 Status: F Source: [facility] 8:46 AM [facility] TYPE CODE TESTS RESULT OUT OF REFERENCE UNITS RANGE LAB PBNP(LOINC) 5.0-300.0 pg/mL High N-Terminal 8286.0 proBNP Result Comment: In the presence of acute dyspnea, CHF likely if: Age <50 years: >450 pg/mL Age 50-75 years: >900 pg/mL Age >75 years: >1800 pg/mL Performed By: #### PBNP #### [address] [address] BMP Collected: 11/29/2017 Status: F Source: [facility] 3:54 AM [facility] REPOSITORY TYPE CODE TESTS RESULT OUT OF REFERENCE UNITS RANGE LAB GLU(LOINC) 82-115 mg/dL Glucose Level 103 LAB NA(LOINC) 136-145 mEq/L Sodium Level 139 LAB K(LOINC) 3.5-5.0 mEq/L Potassium Level 4.4 LAB CL(LOINC) 98-110 mEq/L Chloride 100 LAB CO2(LOINC) 22-32 mEq/L CO2 30 LAB EBAL(LOINC 4.0-15.0 mEq/L ) Electrolyte Balance 9.0 LAB BUN(LOINC) 8.0-22.0 mg/dL BUN High 41.0 LAB CRE(LOINC) 0.50-1.20 mg/dL Creatinine Lvl (s) 1.04 LAB BC(LOINC) 10.0-22.0 ratio High BUN/Creatinine 39.4 Ratio LAB CA(LOINC) 8.4-10.1 mg/dL Low Calcium Lvl 8.3 Performed By: #### BMP, GFR #### [address] [address] .GFR Collected: 11/29/2017 Status: F Source: [facility] [employer] 3:54 AM [facility] REPOSITORY TYPE CODE TESTS RESULT OUT OF REFERENCE UNITS RANGE LAB GFRAA(LOINC ml/min/1.73 ) sqm GFR >60 Lao Result Comment: GFR Population mean for , Non- Americans Ages 20-29 = 116 mL/min/1.73 sq.m. Ages 30-39 = 107 mL/min/1.73 sq.m. Ages 40-49 = 99 mL/min/1.73 sq.m. Ages 50-59 = 93 mL/min/1.73 sq.m. Ages 60-69 = 85 mL/min/1.73 sq.m. Ages 70+ = 75 mL/min/1.73 sq.m. Chronic Kidney Disease: Less than 60 mL/min/1.73 square meters End Stage Renal Disease: Less than 15 mL/min/1.73 square meters LAB GFRNO(LOINC) ml/min/1.73sqm GFR Non- 52 Result Comment: GFR Population mean for , Non- Americans Ages 20-29 = 116 mL/min/1.73 sq.m. Ages 30-39 = 107 mL/min/1.73 sq.m. Ages 40-49 = 99 mL/min/1.73 sq.m. Ages 50-59 = 93 mL/min/1.73 sq.m. Ages 60-69 = 85 mL/min/1.73 sq.m. Ages 70+ = 75 mL/min/1.73 sq.m. Chronic Kidney Disease: Less than 60 mL/min/1.73 square meters End Stage Renal Disease: Less than 15 mL/min/1.73 square meters Performed By: #### BMP, GFR #### [address] [address] BMP Collected: 11/28/2017 Status: F Source: [place] [employer] 4:35 AM [facility] REPOSITORY TYPE CODE TESTS RESULT OUT OF REFERENCE UNITS RANGE LAB GLU(LOINC) 82-115 mg/dL Glucose High Level 148 LAB NA(LOINC) 136-145 mEq/L Sodium Level 136 LAB K(LOINC) 3.5-5.0 mEq/L Potassium Level 4.9 LAB CL(LOINC) 98-110 mEq/L Chloride 98 LAB CO2(LOINC) 22-32 mEq/L CO2 30 LAB EBAL(LOINC 4.0-15.0 mEq/L ) Electrolyte Balance 8.0 LAB BUN(LOINC) 8.0-22.0 mg/dL BUN High 38.0 LAB CRE(LOINC) 0.50-1.20 mg/dL Creatinine Lvl (s) 1.09 LAB BC(LOINC) 10.0-22.0 ratio High BUN/Creatinine 34.9 Ratio LAB CA(LOINC) 8.4-10.1 mg/dL Calcium Lvl 8.8 Performed By: #### BMP, GFR #### [facility] [address] [place] [address] .GFR Collected: 11/28/2017 Status: F Source: [facility] 4:35 AM [facility] REPOSITORY TYPE CODE TESTS RESULT OUT OF REFERENCE UNITS RANGE LAB GFRAA(LOINC ml/min/1.73 ) sqm GFR 59 Lao Result Comment: GFR Population mean for , Non- Americans Ages 20-29 = 116 mL/min/1.73 sq.m. Ages 30-39 = 107 mL/min/1.73 sq.m. Ages 40-49 = 99 mL/min/1.73 sq.m. Ages 50-59 = 93 mL/min/1.73 sq.m. Ages 60-69 = 85 mL/min/1.73 sq.m. Ages 70+ = 75 mL/min/1.73 sq.m. Chronic Kidney Disease: Less than 60 mL/min/1.73 square meters End Stage Renal Disease: Less than 15 mL/min/1.73 square meters LAB GFRNO(LOINC) ml/min/1.73sqm GFR Non- 49 Result Comment: GFR Population mean for , Non- Americans Ages 20-29 = 116 mL/min/1.73 sq.m. Ages 30-39 = 107 mL/min/1.73 sq.m. Ages 40-49 = 99 mL/min/1.73 sq.m. Ages 50-59 = 93 mL/min/1.73 sq.m. Ages 60-69 = 85 mL/min/1.73 sq.m. Ages 70+ = 75 mL/min/1.73 sq.m. Chronic Kidney Disease: Less than 60 mL/min/1.73 square meters End Stage Renal Disease: Less than 15 mL/min/1.73 square meters Performed By: #### BMP, GFR #### [place] [address] XR CHEST 2 VIEWS Observed: 11/27/2017 Status: F Source: [facility] 5:47 AM [facility] REPOSITORY ORIGINAL Clinical history: Follow-up pleural fluid after cardiac surgery. COMPARISON: Chest x-ray on 11/24/2017. PA and lateral radiographs of the chest were obtained. The heart size is at the upper limits of normal. LEFT atrial appendage clamp is in place. 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 There are small bilateral pleural effusions that are not significantly changed compared with chest x-ray on 11/24/2017. There is associated lower lobe consolidation. There is no pulmonary edema and no pneumothorax. IMPRESSION: Small bilateral pleural effusions without significant change since 11/24/2017. Interpreted By: Sheng Cristina MD Preliminary Report By: Sheng Cristina MD Electronically Signed By: Sheng Cristina MD Dictated Date: 11/27/2017 6:07:08 AM Prelim Date: 11/27/2017 6:07:08 AM Sign Date: 11/27/2017 6:09:17 AM CBC Collected: 11/27/2017 Status: F Source: [facility] 4:45 AM [facility] REPOSITORY TYPE CODE TESTS RESULT OUT OF REFERENCE UNITS RANGE LAB WBC(LOINC) 4.50-10.80 10 3/mcL WBC 10.50 LAB RBCCT(LOINC 4.10-5.30 10 6/mcL ) Low RBC 3.91 LAB HGB(LOINC) 12.0-16.0 G/dL Hgb 12.4 LAB HCT(LOINC) 34.0-46.0 % Hct 36.6 LAB MCV(LOINC) 80.0-99.0 fL MCV 93.7 LAB MCH(LOINC) 27.0-33.0 pg MCH 31.7 LAB MCHC(LOINC) 32.0-36.0 G/dL MCHC 33.9 LAB RDW(LOINC) 11.5-15.5 % RDW 15.2 LAB PLT(LOINC) 150-450 10 3/mcL Platelet 240 LAB MPV(LOINC) 6.6-10.5 fL MPV 7.9 Performed By: #### CBC, ADIFF, ANEU, CMP, GFR #### [place] [address] .AUTO DIFF Collected: 11/27/2017 Status: F Source: [facility] 4:45 AM [facility] REPOSITORY TYPE CODE TESTS RESULT OUT OF REFERENCE UNITS RANGE LAB EUGENIE(LOINC) 50.0-75.0 % High Neutrophil % 78.8 LAB LYM(LOINC) 20.0-40.0 % Low Lymphocyte % 8.5 LAB MON(LOINC) 2.0-13.0 % Monocyte % 7.9 LAB EO(LOINC) 0.0-6.0 % Eosinophil % 3.9 LAB BAS(LOINC) 0.0-2.5 % Basophil % 0.9 LAB ABLYM(LOIN 0.90-4.32 10 3/mcL C) Lymphocyte, 0.90 Absolute LAB NICK(LOINC 0.09-1.40 10 3/mcL ) Monocyte, 0.80 Absolute LAB AEOS(LOINC 0.00-0.65 10 3/mcL ) Eosinophil, 0.40 Absolute LAB ABAS(LOINC 0.00-0.27 10 3/mcL ) Basophil, 0.10 Absolute Performed By: #### CBC, ADIFF, ANEU, CMP, GFR #### [place] [address] .NEUABS Collected: 11/27/2017 Status: F Source: [facility] 4:45 AM [facility] REPOSITORY TYPE CODE TESTS RESULT OUT OF REFERENCE UNITS RANGE LAB ANEU(LOINC) 2.25-8.10 10 3/mcL High Neutrophil, 8.30 Absolute Performed By: #### CBC, ADIFF, ANEU, CMP, GFR #### [place] [address] CMP Collected: 11/27/2017 Status: F Source: [facility] 4:45 AM [facility] REPOSITORY TYPE CODE TESTS RESULT OUT OF REFERENCE UNITS RANGE LAB GLU(LOINC) 82-115 mg/dL Glucose High Level 160 LAB NA(LOINC) 136-145 mEq/L Low Sodium Level 135 LAB K(LOINC) 3.5-5.0 mEq/L Potassium High Level 5.2 LAB CL(LOINC) 98-110 mEq/L Chloride 98 LAB CO2(LOINC) 22-32 mEq/L CO2 31 LAB EBAL(LOINC 4.0-15.0 mEq/L ) Electrolyte Balance 6.0 LAB BUN(LOINC) 8.0-22.0 mg/dL BUN High 37.0 LAB CRE(LOINC) 0.50-1.20 mg/dL Creatinine Lvl (s) 1.01 LAB BC(LOINC) 10.0-22.0 ratio High BUN/Creatinine 36.6 Ratio LAB CA(LOINC) 8.4-10.1 mg/dL Calcium Lvl 9.4 LAB PROT(LOINC 6.0-8.5 G/dL ) Low Total Protein 5.8 LAB ALB(LOINC) 3.2-4.8 G/dL Low Albumin Level 2.8 LAB GLB(LOINC) 1.5-3.8 G/dL Globulin 3.0 LAB AG(LOINC) 0.9-1.6 ratio A/G Ratio 0.9 LAB BILT(LOINC 0.2-1.2 mg/dL ) Bili Total 0.6 LAB AP(LOINC) 38-126 U/L Alk Phos High 132 LAB AST(LOINC) 8-34 U/L AST/SGOT 20 LAB ALT(LOINC) 10-49 U/L ALT/SGPT 22 Performed By: #### CBC, ADIFF, ANEU, CMP, GFR #### [place] [address] .GFR Collected: 11/27/2017 Status: F Source: [facility] 4:45 AM [facility] REPOSITORY TYPE CODE TESTS RESULT OUT OF REFERENCE UNITS RANGE LAB GFRAA(LOINC ml/min/1.73 ) sqm GFR >60 Lao Result Comment: GFR Population mean for , Non- Americans Ages 20-29 = 116 mL/min/1.73 sq.m. Ages 30-39 = 107 mL/min/1.73 sq.m. Ages 40-49 = 99 mL/min/1.73 sq.m. Ages 50-59 = 93 mL/min/1.73 sq.m. Ages 60-69 = 85 mL/min/1.73 sq.m. Ages 70+ = 75 mL/min/1.73 sq.m. Chronic Kidney Disease: Less than 60 mL/min/1.73 square meters End Stage Renal Disease: Less than 15 mL/min/1.73 square meters LAB GFRNO(LOINC) ml/min/1.73sqm GFR Non- 54 Result Comment: GFR Population mean for , Non- Americans Ages 20-29 = 116 mL/min/1.73 sq.m. Ages 30-39 = 107 mL/min/1.73 sq.m. Ages 40-49 = 99 mL/min/1.73 sq.m. Ages 50-59 = 93 mL/min/1.73 sq.m. Ages 60-69 = 85 mL/min/1.73 sq.m. Ages 70+ = 75 mL/min/1.73 sq.m. Chronic Kidney Disease: Less than 60 mL/min/1.73 square meters End Stage Renal Disease: Less than 15 mL/min/1.73 square meters Performed By: #### CBC, ADIFF, ANEU, CMP, GFR #### [place] [address] Observed: 11/25/2017 Status: F Source: [facility] 2:35 AM [facility] REPOSITORY . MICRO - Microbiology PROCEDURE: Urine Culture [*1] SOURCE: Urine BODY SITE: COLLECTED DATE/TIME: 11/25/2017 02:35 EDT RECEIVED DATE/TIME: 11/25/2017 07:18 EDT START DATE/TIME: 11/25/2017 07:18 EDT FREE TEXT SOURCE: FINAL REPORTS Final Report [] Verified Date/Time/Personnel: 11/26/2017 11:11 EDT 10,000 organisms per mL Mixed without predominant isolate(s). Sensitivity Testing not indicated. Probably contamination. Repeat culture suggested. Performing Locations *1: This test was performed at: [address], [address] , [facility] Performed By: #### CUR #### [place] [address] XR CHEST 2 VIEWS Observed: 11/24/2017 Status: F Source: [place] [employer] 8:07 AM [facility] REPOSITORY ORIGINAL XR CHEST 2 VIEWS CLINICAL STATEMENT: abnormal breath sounds. COMPARISON: Chest radiograph 11/23/2017 FINDINGS: The cardiomediastinal contours are stable. There is a LEFT subclavian central venous catheter unchanged. There are median sternotomy wires, prosthetic valve and a LEFT atrial appendage clip. T here is improved vascular congestion. There are persistent small bilateral pleural effusions with associated adjacent airspace disease which has slightly improved as well. No pneumothorax. Degenerative changes are seen within the spine. IMPRESSION: Improved vascular congestion. Persistent small bilateral pleural effusions with associated adjacent airspace disease which has also slightly improved. Interpreted By: Laureen Aiken MD Preliminary Report By: Laureen Aiken MD Electronically Signed By: Laureen Aiken MD Dictated Date: 11/24/2017 8:48:49 AM Prelim Date: 11/24/2017 8:48:49 AM Sign Date: 11/24/2017 8:51:59 AM CMP Collected: 11/24/2017 Status: F Source: [facility] [facility] 5:32 AM [facility] REPOSITORY TYPE CODE TESTS RESULT OUT OF REFERENCE UNITS RANGE LAB GLU(LOINC) 82-115 mg/dL Glucose High Level 150 LAB NA(LOINC) 136-145 mEq/L Sodium Level 139 LAB K(LOINC) 3.5-5.0 mEq/L Potassium Level 4.2 LAB CL(LOINC) 98-110 mEq/L Chloride 102 LAB CO2(LOINC) 22-32 mEq/L CO2 30 LAB EBAL(LOINC 4.0-15.0 mEq/L ) Electrolyte Balance 7.0 LAB BUN(LOINC) 8.0-22.0 mg/dL BUN High 25.0 LAB CRE(LOINC) 0.50-1.20 mg/dL Creatinine Lvl (s) 1.12 LAB BC(LOINC) 10.0-22.0 ratio High BUN/Creatinine 22.3 Ratio LAB CA(LOINC) 8.4-10.1 mg/dL Calcium Lvl 8.5 LAB PROT(LOINC 6.0-8.5 G/dL ) Total Protein 6.2 LAB ALB(LOINC) 3.2-4.8 G/dL Low Albumin Level 2.8 LAB GLB(LOINC) 1.5-3.8 G/dL Globulin 3.4 LAB AG(LOINC) 0.9-1.6 ratio Low A/G Ratio 0.8 LAB BILT(LOINC 0.2-1.2 mg/dL ) Bili Total 0.7 LAB AP(LOINC) 38-126 U/L Alk Phos 122 LAB AST(LOINC) 8-34 U/L AST/SGOT 29 LAB ALT(LOINC) 10-49 U/L ALT/SGPT 34 Performed By: #### CMP, GFR #### [place] [address] .GFR Collected: 11/24/2017 Status: F Source: [facility] 5:32 AM [facility] REPOSITORY TYPE CODE TESTS RESULT OUT OF REFERENCE UNITS RANGE LAB GFRAA(LOINC ml/min/1.73 ) sqm GFR 58 Lao Result Comment: GFR Population mean for , Non- Americans Ages 20-29 = 116 mL/min/1.73 sq.m. Ages 30-39 = 107 mL/min/1.73 sq.m. Ages 40-49 = 99 mL/min/1.73 sq.m. Ages 50-59 = 93 mL/min/1.73 sq.m. Ages 60-69 = 85 mL/min/1.73 sq.m. Ages 70+ = 75 mL/min/1.73 sq.m. Chronic Kidney Disease: Less than 60 mL/min/1.73 square meters End Stage Renal Disease: Less than 15 mL/min/1.73 square meters LAB GFRNO(LOINC) ml/min/1.73sqm GFR Non- 48 Result Comment: GFR Population mean for , Non- Americans Ages 20-29 = 116 mL/min/1.73 sq.m. Ages 30-39 = 107 mL/min/1.73 sq.m. Ages 40-49 = 99 mL/min/1.73 sq.m. Ages 50-59 = 93 mL/min/1.73 sq.m. Ages 60-69 = 85 mL/min/1.73 sq.m. Ages 70+ = 75 mL/min/1.73 sq.m. Chronic Kidney Disease: Less than 60 mL/min/1.73 square meters End Stage Renal Disease: Less than 15 mL/min/1.73 square meters Performed By: #### CMP, GFR #### [place] [id number] CBC Collected: 11/24/2017 Status: F Source: [facility] 5:32 AM [facility] REPOSITORY TYPE CODE TESTS RESULT OUT OF REFERENCE UNITS RANGE LAB WBC(LOINC) 4.50-10.80 10 3/mcL High WBC 12.00 LAB RBCCT(LOINC 4.10-5.30 10 6/mcL ) Low RBC 3.75 LAB HGB(LOINC) 12.0-16.0 G/dL Low Hgb 11.7 LAB HCT(LOINC) 34.0-46.0 % Hct 34.8 LAB MCV(LOINC) 80.0-99.0 fL MCV 92.7 LAB MCH(LOINC) 27.0-33.0 pg MCH 31.1 LAB MCHC(LOINC) 32.0-36.0 G/dL MCHC 33.5 LAB RDW(LOINC) 11.5-15.5 % RDW 15.2 LAB PLT(LOINC) 150-450 10 3/mcL Low Platelet 143 LAB MPV(LOINC) 6.6-10.5 fL MPV 8.5 Performed By: #### CBC, ADIFF, ANEU #### [place] [address] .AUTO DIFF Collected: 11/24/2017 Status: F Source: [facility] 5:32 AM [facility] REPOSITORY TYPE CODE TESTS RESULT OUT OF REFERENCE UNITS RANGE LAB EUGENIE(LOINC) 50.0-75.0 % High Neutrophil % 85.1 LAB LYM(LOINC) 20.0-40.0 % Low Lymphocyte % 5.7 LAB MON(LOINC) 2.0-13.0 % Monocyte % 7.5 LAB EO(LOINC) 0.0-6.0 % Eosinophil % 1.4 LAB BAS(LOINC) 0.0-2.5 % Basophil % 0.3 LAB ABLYM(LOIN 0.90-4.32 10 3/mcL C) Low Lymphocyte, 0.70 Absolute LAB NICK(LOINC 0.09-1.40 10 3/mcL ) Monocyte, 0.90 Absolute LAB AEOS(LOINC 0.00-0.65 10 3/mcL ) Eosinophil, 0.20 Absolute LAB ABAS(LOINC 0.00-0.27 10 3/mcL ) Basophil, 0.00 Absolute Performed By: #### CBC, ADIFF, ANEU #### [address] [address] .NEUABS Collected: 11/24/2017 Status: F Source: [facility] 5:32 AM [facility] REPOSITORY TYPE CODE TESTS RESULT OUT OF REFERENCE UNITS RANGE LAB ANEU(LOINC) 2.25-8.10 10 3/mcL High Neutrophil, 10.20 Absolute Performed By: #### CBC, ADIFF, ANEU #### [address] [address] XR CHEST 1 VIEW Observed: 11/23/2017 Status: F Source: [facility] 5:06 AM [facility] REPOSITORY ORIGINAL XR CHEST 1 VIEW PORTABLE AP TIME: 5:30 AM CLINICAL STATEMENT: pleural effusion. COMPARISON: 11/22/2017 FINDINGS: The cardiomediastinal contours are unchanged. Sternal hardware is again noted. The aorta is atherosclerotic. LEFT atrial appendage clip noted. LEFT subclavian approach central venous catheter is not significantly changed. There are small bilateral pleural effusions with adjacent consolidations. Pulmonary vasculature is unchanged. No pneumothorax seen. IMPRESSION: No significant change. Interpreted By: Uma Quinn Preliminary Report By: Uma Quinn Electronically Signed By: Uma Quinn Dictated Date: 11/23/2017 5:43:04 AM Prelim Date: 11/23/2017 5:43:04 AM Sign Date: 11/23/2017 5:43:57 AM CBC Collected: 11/23/2017 Status: F Source: [facility] 4:23 AM [facility] REPOSITORY TYPE CODE TESTS RESULT OUT OF REFERENCE UNITS RANGE LAB WBC(LOINC) 4.50-10.80 10 3/mcL High WBC 15.40 LAB RBCCT(LOINC 4.10-5.30 10 6/mcL ) Low RBC 3.88 LAB HGB(LOINC) 12.0-16.0 G/dL Hgb 12.1 LAB HCT(LOINC) 34.0-46.0 % Hct 36.1 LAB MCV(LOINC) 80.0-99.0 fL MCV 93.0 LAB MCH(LOINC) 27.0-33.0 pg MCH 31.2 LAB MCHC(LOINC) 32.0-36.0 G/dL MCHC 33.5 LAB RDW(LOINC) 11.5-15.5 % High RDW 15.7 LAB PLT(LOINC) 150-450 10 3/mcL Low Platelet 123 LAB MPV(LOINC) 6.6-10.5 fL MPV 8.6 Performed By: #### CBC, ADIFF, ANEU, GFR, CMP #### [address] [address] .AUTO DIFF Collected: 11/23/2017 Status: F Source: [facility] 4:23 AM [facility] REPOSITORY TYPE CODE TESTS RESULT OUT OF REFERENCE UNITS RANGE LAB EUGENIE(LOINC) 50.0-75.0 % High Neutrophil % 88.3 LAB LYM(LOINC) 20.0-40.0 % Low Lymphocyte % 4.8 LAB MON(LOINC) 2.0-13.0 % Monocyte % 6.3 LAB EO(LOINC) 0.0-6.0 % Eosinophil % 0.3 LAB BAS(LOINC) 0.0-2.5 % Basophil % 0.3 LAB ABLYM(LOIN 0.90-4.32 10 3/mcL C) Low Lymphocyte, 0.70 Absolute LAB NICK(LOINC 0.09-1.40 10 3/mcL ) Monocyte, 1.00 Absolute LAB AEOS(LOINC 0.00-0.65 10 3/mcL ) Eosinophil, 0.00 Absolute LAB ABAS(LOINC 0.00-0.27 10 3/mcL ) Basophil, 0.00 Absolute Performed By: #### CBC, ADIFF, ANEU, GFR, CMP #### [place] [address] .NEUABS Collected: 11/23/2017 Status: F Source: [facility] 4:23 AM [facility] REPOSITORY TYPE CODE TESTS RESULT OUT OF REFERENCE UNITS RANGE LAB ANEU(LOINC) 2.25-8.10 10 3/mcL High Neutrophil, 13.60 Absolute Performed By: #### CBC, ADIFF, ANEU, GFR, CMP #### [address] [address] .GFR Collected: 11/23/2017 Status: F Source: [facility] 4:23 AM [facility] REPOSITORY TYPE CODE TESTS RESULT OUT OF REFERENCE UNITS RANGE LAB GFRAA(LOINC ml/min/1.73 ) sqm GFR 55 Lao Result Comment: GFR Population mean for , Non- Americans Ages 20-29 = 116 mL/min/1.73 sq.m. Ages 30-39 = 107 mL/min/1.73 sq.m. Ages 40-49 = 99 mL/min/1.73 sq.m. Ages 50-59 = 93 mL/min/1.73 sq.m. Ages 60-69 = 85 mL/min/1.73 sq.m. Ages 70+ = 75 mL/min/1.73 sq.m. Chronic Kidney Disease: Less than 60 mL/min/1.73 square meters End Stage Renal Disease: Less than 15 mL/min/1.73 square meters LAB GFRNO(LOINC) ml/min/1.73sqm GFR Non- 45 Result Comment: GFR Population mean for , Non- Americans Ages 20-29 = 116 mL/min/1.73 sq.m. Ages 30-39 = 107 mL/min/1.73 sq.m. Ages 40-49 = 99 mL/min/1.73 sq.m. Ages 50-59 = 93 mL/min/1.73 sq.m. Ages 60-69 = 85 mL/min/1.73 sq.m. Ages 70+ = 75 mL/min/1.73 sq.m. Chronic Kidney Disease: Less than 60 mL/min/1.73 square meters End Stage Renal Disease: Less than 15 mL/min/1.73 square meters Performed By: #### CBC, ADIFF, ANEU, GFR, CMP #### [place] [id number] CMP Collected: 11/23/2017 Status: F Source: [facility] 4:23 AM [facility]OUNDATION REPOSITORY TYPE CODE TESTS RESULT OUT OF REFERENCE UNITS RANGE LAB GLU(LOINC) 82-115 mg/dL Glucose High Level 147 LAB NA(LOINC) 136-145 mEq/L Sodium Level 140 LAB K(LOINC) 3.5-5.0 mEq/L Potassium Level 4.0 LAB CL(LOINC) 98-110 mEq/L Chloride 104 LAB CO2(LOINC) 22-32 mEq/L CO2 28 LAB EBAL(LOINC 4.0-15.0 mEq/L ) Electrolyte Balance 8.0 LAB BUN(LOINC) 8.0-22.0 mg/dL BUN High 26.0 LAB CRE(LOINC) 0.50-1.20 mg/dL Creatinine Lvl (s) 1.17 LAB BC(LOINC) 10.0-22.0 ratio High BUN/Creatinine 22.2 Ratio LAB CA(LOINC) 8.4-10.1 mg/dL Calcium Lvl 8.8 LAB PROT(LOINC 6.0-8.5 G/dL ) Low Total Protein 5.9 LAB ALB(LOINC) 3.2-4.8 G/dL Albumin Level 3.2 LAB GLB(LOINC) 1.5-3.8 G/dL Globulin 2.7 LAB AG(LOINC) 0.9-1.6 ratio A/G Ratio 1.2 LAB BILT(LOINC 0.2-1.2 mg/dL ) Bili Total 0.5 LAB AP(LOINC) 38-126 U/L Alk Phos High 133 LAB AST(LOINC) 8-34 U/L AST/SGOT High 51 LAB ALT(LOINC) 10-49 U/L ALT/SGPT 47 Performed By: #### CBC, ADIFF, ANEU, GFR, CMP #### [place] [id number] XR CHEST 1 VIEW Observed: 11/22/2017 Status: F Source: [facility] 4:37 AM [facility]OUNDATION REPOSITORY ORIGINAL XR CHEST 1 VIEW PORTABLE AP TIME: 5:07 AM CLINICAL STATEMENT: abnormal breath sounds. COMPARISON: 11/21/2017 FINDINGS: The cardiomediastinal contours are normal. Median sternotomy hardware and left atrial appendage clip as well as prosthetic cardiac valve again noted. Mediastinal surgical drain identified. The aorta is atherosclerotic. Left subclavian approach central venous catheter noted. The right IJ approach central venous catheter has been removed. There are small bilateral pleural effusions with adjace nt hazy opacification. No vascular congestion or pneumothorax identified. IMPRESSION: Small bilateral pleural effusions with adjacent consolidations. Interpreted By: Uma Quinn Preliminary Report By: Uma Quinn Electronically Signed By: Uma Quinn Dictated Date: 11/22/2017 5:28:59 AM Prelim Date: 11/22/2017 5:28:59 AM Sign Date: 11/22/2017 5:30:12 AM CBC Collected: 11/22/2017 Status: F Source: [facility] 3:55 AM [facility] REPOSITORY TYPE CODE TESTS RESULT OUT OF REFERENCE UNITS RANGE LAB WBC(LOINC) 4.50-10.80 10 3/mcL High WBC 17.70 LAB RBCCT(LOINC 4.10-5.30 10 6/mcL ) Low RBC 4.07 LAB HGB(LOINC) 12.0-16.0 G/dL Hgb 13.0 LAB HCT(LOINC) 34.0-46.0 % Hct 37.6 LAB MCV(LOINC) 80.0-99.0 fL MCV 92.3 LAB MCH(LOINC) 27.0-33.0 pg MCH 31.9 LAB MCHC(LOINC) 32.0-36.0 G/dL MCHC 34.6 LAB RDW(LOINC) 11.5-15.5 % RDW 15.4 LAB PLT(LOINC) 150-450 10 3/mcL Low Platelet 118 LAB MPV(LOINC) 6.6-10.5 fL MPV 8.7 Performed By: #### CBC, ADIFF, ANEU, BMP, GFR #### [place] [address] .AUTO DIFF Collected: 11/22/2017 Status: F Source: [facility] 3:55 AM [facility] REPOSITORY TYPE CODE TESTS RESULT OUT OF REFERENCE UNITS RANGE LAB EUGENIE(LOINC) 50.0-75.0 % High Neutrophil % 84.4 LAB LYM(LOINC) 20.0-40.0 % Low Lymphocyte % 7.1 LAB MON(LOINC) 2.0-13.0 % Monocyte % 7.9 LAB EO(LOINC) 0.0-6.0 % Eosinophil % 0.1 LAB BAS(LOINC) 0.0-2.5 % Basophil % 0.5 LAB ABLYM(LOIN 0.90-4.32 10 3/mcL C) Lymphocyte, 1.30 Absolute LAB NICK(LOINC 0.09-1.40 10 3/mcL ) Monocyte, 1.40 Absolute LAB AEOS(LOINC 0.00-0.65 10 3/mcL ) Eosinophil, 0.00 Absolute LAB ABAS(LOINC 0.00-0.27 10 3/mcL ) Basophil, 0.10 Absolute Performed By: #### CBC, ADIFF, ANEU, BMP, GFR #### [address] [address] .NEUABS Collected: 11/22/2017 Status: F Source: [facility] 3:55 AM [facility] REPOSITORY TYPE CODE TESTS RESULT OUT OF REFERENCE UNITS RANGE LAB ANEU(LOINC) 2.25-8.10 10 3/mcL High Neutrophil, 14.90 Absolute Performed By: #### CBC, ADIFF, ANEU, BMP, GFR #### [address] [address] BMP Collected: 11/22/2017 Status: F Source: [facility] 3:55 AM [facility] REPOSITORY TYPE CODE TESTS RESULT OUT OF REFERENCE UNITS RANGE LAB GLU(LOINC) 82-115 mg/dL Glucose High Level 135 LAB NA(LOINC) 136-145 mEq/L Sodium Level 141 LAB K(LOINC) 3.5-5.0 mEq/L Potassium Level 4.7 LAB CL(LOINC) 98-110 mEq/L Chloride 105 LAB CO2(LOINC) 22-32 mEq/L CO2 26 LAB EBAL(LOINC 4.0-15.0 mEq/L ) Electrolyte Balance 10.0 LAB BUN(LOINC) 8.0-22.0 mg/dL BUN High 26.0 LAB CRE(LOINC) 0.50-1.20 mg/dL Creatinine High Lvl (s) 1.74 LAB BC(LOINC) 10.0-22.0 ratio BUN/Creatinine 14.9 Ratio LAB CA(LOINC) 8.4-10.1 mg/dL Calcium Lvl 8.7 Performed By: #### CBC, ADIFF, ANEU, BMP, GFR #### [address] [address] .GFR Collected: 11/22/2017 Status: F Source: [facility] 3:55 AM [facility] REPOSITORY TYPE CODE TESTS RESULT OUT OF REFERENCE UNITS RANGE LAB GFRAA(LOINC ml/min/1.73 ) sqm GFR 35 Lao Result Comment: GFR Population mean for , Non- Americans Ages 20-29 = 116 mL/min/1.73 sq.m. Ages 30-39 = 107 mL/min/1.73 sq.m. Ages 40-49 = 99 mL/min/1.73 sq.m. Ages 50-59 = 93 mL/min/1.73 sq.m. Ages 60-69 = 85 mL/min/1.73 sq.m. Ages 70+ = 75 mL/min/1.73 sq.m. Chronic Kidney Disease: Less than 60 mL/min/1.73 square meters End Stage Renal Disease: Less than 15 mL/min/1.73 square meters LAB GFRNO(LOINC) ml/min/1.73sqm GFR Non- 29 Result Comment: GFR Population mean for , Non- Americans Ages 20-29 = 116 mL/min/1.73 sq.m. Ages 30-39 = 107 mL/min/1.73 sq.m. Ages 40-49 = 99 mL/min/1.73 sq.m. Ages 50-59 = 93 mL/min/1.73 sq.m. Ages 60-69 = 85 mL/min/1.73 sq.m. Ages 70+ = 75 mL/min/1.73 sq.m. Chronic Kidney Disease: Less than 60 mL/min/1.73 square meters End Stage Renal Disease: Less than 15 mL/min/1.73 square meters Performed By: #### CBC, ADIFF, ANEU, BMP, GFR #### [address] [address] K Collected: 11/21/2017 Status: F Source: [facility] 3:49 PM [facility] REPOSITORY TYPE CODE TESTS RESULT OUT OF REFERENCE UNITS RANGE LAB K(LOINC) 3.5-5.0 mEq/L Potassium Level 4.9 Performed By: #### K #### [address] [address] XR CHEST 1 VIEW Observed: 11/21/2017 Status: F Source: [email or web address] 4:59 AM [facility] REPOSITORY ORIGINAL XR CHEST 1 VIEW PORTABLE AP TIME: 5:18 AM CLINICAL STATEMENT: abnormal breath sounds. COMPARISON: 11/20/2017 FINDINGS: The endotracheal and enteric tubes have been removed. The cardiomediastinal contours are unchanged. The aorta is atherosclerotic. Bilateral central venous catheters are again seen. Median ster notomy wires and sternal hardware again noted. LEFT atrial appendage clip. Mediastinal drain. Lung aeration is not significantly changed. No pneumothorax. IMPRESSION: Interval extubation and removal of enteric tube, otherwise no significant change. Interpreted By: Uma Quinn Preliminary Report By: Uma Quinn Electronically Signed By: Uma Quinn Dictated Date: 11/21/2017 5:37:53 AM Prelim Date: 11/21/2017 5:37:53 AM Sign Date: 11/21/2017 5:39:27 AM BG Collected: 11/21/2017 Status: F Source: [facility] 3:34 AM [facility] REPOSITORY TYPE CODE TESTS RESULT OUT OF REFERENCE UNITS RANGE LAB PH(LOINC) 7.380-7.460 Low pH 7.366 LAB PCO2(LOINC 32.0-46.0 mmHg ) pCO2 42.4 LAB PO2(LOINC) 74.0-108.0 mmHg pO2 High 141.5 LAB HCO3(LOINC 21.0-29.0 mmol/L ) HCO3 23.7 LAB TCO2(LOINC 22.0-30.0 mmol/L ) CO2 Totl 25.0 LAB BE(LOINC) mmol/L Base Excess -1.6 LAB O2SAT(LOIN 92.0-96.0 % C) O2 Sat High 98.7 LAB BPRES(LOIN mmHg C) Barometric 731 Pressure Performed By: #### BG #### [address] Collected: 11/21/2017 Status: F Source: [facility] 3:34 AM [facility] REPOSITORY TYPE CODE TESTS RESULT OUT OF REFERENCE UNITS RANGE LAB GLU(LOINC) 82-115 mg/dL Glucose Level 101 LAB NA(LOINC) 136-145 mEq/L Sodium Level 145 LAB K(LOINC) 3.5-5.0 mEq/L Potassium Level 4.6 LAB CL(LOINC) 98-110 mEq/L Chloride High 111 LAB CO2(LOINC) 22-32 mEq/L CO2 24 LAB EBAL(LOINC 4.0-15.0 mEq/L ) Electrolyte Balance 10.0 LAB BUN(LOINC) 8.0-22.0 mg/dL BUN 21.0 LAB CRE(LOINC) 0.50-1.20 mg/dL Creatinine High Lvl (s) 1.46 LAB BC(LOINC) 10.0-22.0 ratio BUN/Creatinine 14.4 Ratio LAB CA(LOINC) 8.4-10.1 mg/dL Low Calcium Lvl 8.3 LAB PROT(LOINC 6.0-8.5 G/dL ) Low Total Protein 5.7 LAB ALB(LOINC) 3.2-4.8 G/dL Albumin Level 3.6 LAB GLB(LOINC) 1.5-3.8 G/dL Globulin 2.1 LAB AG(LOINC) 0.9-1.6 ratio A/G Ratio High 1.7 LAB BILT(LOINC 0.2-1.2 mg/dL ) Bili Total 1.0 LAB AP(LOINC) 38-126 U/L Alk Phos 100 LAB AST(LOINC) 8-34 U/L AST/SGOT High 226 LAB ALT(LOINC) 10-49 U/L ALT/SGPT High 66 Performed By: #### CMP, GFR, CBC, ADIFF, ANEU #### [place] [address] .GFR Collected: 11/21/2017 Status: F Source: [facility] 3:34 AM [facility] REPOSITORY TYPE CODE TESTS RESULT OUT OF REFERENCE UNITS RANGE LAB GFRAA(LOINC ml/min/1.73 ) sqm GFR 42 Lao Result Comment: GFR Population mean for , Non- Americans Ages 20-29 = 116 mL/min/1.73 sq.m. Ages 30-39 = 107 mL/min/1.73 sq.m. Ages 40-49 = 99 mL/min/1.73 sq.m. Ages 50-59 = 93 mL/min/1.73 sq.m. Ages 60-69 = 85 mL/min/1.73 sq.m. Ages 70+ = 75 mL/min/1.73 sq.m. Chronic Kidney Disease: Less than 60 mL/min/1.73 square meters End Stage Renal Disease: Less than 15 mL/min/1.73 square meters LAB GFRNO(LOINC) ml/min/1.73sqm GFR Non- 35 Result Comment: GFR Population mean for , Non- Americans Ages 20-29 = 116 mL/min/1.73 sq.m. Ages 30-39 = 107 mL/min/1.73 sq.m. Ages 40-49 = 99 mL/min/1.73 sq.m. Ages 50-59 = 93 mL/min/1.73 sq.m. Ages 60-69 = 85 mL/min/1.73 sq.m. Ages 70+ = 75 mL/min/1.73 sq.m. Chronic Kidney Disease: Less than 60 mL/min/1.73 square meters End Stage Renal Disease: Less than 15 mL/min/1.73 square meters Performed By: #### CMP, GFR, CBC, ADIFF, ANEU #### [address] [address] CBC Collected: 11/21/2017 Status: F Source: [facility] 3:34 AM [facility] REPOSITORY TYPE CODE TESTS RESULT OUT OF REFERENCE UNITS RANGE LAB WBC(LOINC) 4.50-10.80 10 3/mcL High WBC 18.10 LAB RBCCT(LOINC 4.10-5.30 10 6/mcL ) RBC 4.48 LAB HGB(LOINC) 12.0-16.0 G/dL Hgb 14.0 LAB HCT(LOINC) 34.0-46.0 % Hct 40.6 LAB MCV(LOINC) 80.0-99.0 fL MCV 90.7 LAB MCH(LOINC) 27.0-33.0 pg MCH 31.3 LAB MCHC(LOINC) 32.0-36.0 G/dL MCHC 34.5 LAB RDW(LOINC) 11.5-15.5 % High RDW 15.7 LAB PLT(LOINC) 150-450 10 3/mcL Low Platelet 114 LAB MPV(LOINC) 6.6-10.5 fL MPV 8.7 Performed By: #### CMP, GFR, CBC, ADIFF, ANEU #### [address] [address] .AUTO DIFF Collected: 11/21/2017 Status: F Source: [facility] 3:34 AM [facility] REPOSITORY TYPE CODE TESTS RESULT OUT OF REFERENCE UNITS RANGE LAB EUGENIE(LOINC) 50.0-75.0 % High Neutrophil % 84.5 LAB LYM(LOINC) 20.0-40.0 % Low Lymphocyte % 5.7 LAB MON(LOINC) 2.0-13.0 % Monocyte % 9.6 LAB EO(LOINC) 0.0-6.0 % Eosinophil % 0.0 LAB BAS(LOINC) 0.0-2.5 % Basophil % 0.2 LAB ABLYM(LOIN 0.90-4.32 10 3/mcL C) Lymphocyte, 1.00 Absolute LAB NICK(LOINC 0.09-1.40 10 3/mcL ) High Monocyte, 1.70 Absolute LAB AEOS(LOINC 0.00-0.65 10 3/mcL ) Eosinophil, 0.00 Absolute LAB ABAS(LOINC 0.00-0.27 10 3/mcL ) Basophil, 0.00 Absolute Performed By: #### CMP, GFR, CBC, ADIFF, ANEU #### [place] [address] .NEUABS Collected: 11/21/2017 Status: F Source: [facility] 3:34 AM [facility] REPOSITORY TYPE CODE TESTS RESULT OUT OF REFERENCE UNITS RANGE LAB ANEU(LOINC) 2.25-8.10 10 3/mcL High Neutrophil, 15.30 Absolute Performed By: #### CMP, GFR, CBC, ADIFF, ANEU #### [place] [address] BG Collected: 11/20/2017 Status: F Source: [facility] 10:23 PM [facility] REPOSITORY TYPE CODE TESTS RESULT OUT OF REFERENCE UNITS RANGE LAB PH(LOINC) 7.380-7.460 Low pH 7.349 LAB PCO2(LOINC 32.0-46.0 mmHg ) pCO2 44.7 LAB PO2(LOINC) 74.0-108.0 mmHg pO2 102.4 LAB HCO3(LOINC 21.0-29.0 mmol/L ) HCO3 24.1 LAB TCO2(LOINC 22.0-30.0 mmol/L ) CO2 Totl 25.4 LAB BE(LOINC) mmol/L Base Excess -1.7 LAB O2SAT(LOIN 92.0-96.0 % C) O2 Sat High 97.5 LAB BPRES(LOIN mmHg C) Barometric 730 Pressure Performed By: #### BG #### [place] [address] HH Collected: 11/20/2017 Status: F Source: [facility] 10:23 PM [facility] REPOSITORY TYPE CODE TESTS RESULT OUT OF RANGE REFERENCE UNITS LAB HGB(LOINC) 12.0-16.0 G/dL Hgb 14.6 LAB HCT(LOINC) 34.0-46.0 % Hct 43.0 Performed By: #### HH #### [place] [address] K Collected: 11/20/2017 Status: F Source: [facility] 9:11 PM [facility] REPOSITORY TYPE CODE TESTS RESULT OUT OF REFERENCE UNITS RANGE LAB K(LOINC) 3.5-5.0 mEq/L Potassium Level 4.7 Performed By: #### K #### [place] [address] BG Collected: 11/20/2017 Status: F Source: [facility] 9:11 PM [facility] REPOSITORY TYPE CODE TESTS RESULT OUT OF REFERENCE UNITS RANGE LAB PH(LOINC) 7.380-7.460 Low pH 7.373 LAB PCO2(LOINC 32.0-46.0 mmHg ) pCO2 43.0 LAB PO2(LOINC) 74.0-108.0 mmHg pO2 88.2 LAB HCO3(LOINC 21.0-29.0 mmol/L ) HCO3 24.5 LAB TCO2(LOINC 22.0-30.0 mmol/L ) CO2 Totl 25.8 LAB BE(LOINC) mmol/L Base Excess -0.9 LAB O2SAT(LOIN 92.0-96.0 % C) O2 Sat High 96.3 LAB BPRES(LOIN mmHg C) Barometric 732 Pressure Performed By: #### BG #### [place] [address] BG Collected: 11/20/2017 Status: F Source: [facility] 3:18 PM [facility] REPOSITORY TYPE CODE TESTS RESULT OUT OF REFERENCE UNITS RANGE LAB PH(LOINC) 7.380-7.460 Low pH 7.367 LAB PCO2(LOINC 32.0-46.0 mmHg ) pCO2 High 46.8 LAB PO2(LOINC) 74.0-108.0 mmHg pO2 80.8 LAB HCO3(LOINC 21.0-29.0 mmol/L ) HCO3 26.3 LAB TCO2(LOINC 22.0-30.0 mmol/L ) CO2 Totl 27.7 LAB BE(LOINC) mmol/L Base Excess 0.4 LAB O2SAT(LOIN 92.0-96.0 % C) O2 Sat 95.4 LAB BPRES(LOIN mmHg C) Barometric 730 Pressure Performed By: #### BG #### [place] [address] XR CHEST 1 VIEW Observed: 11/20/2017 Status: F Source: [facility] 2:39 PM [facility] REPOSITORY ORIGINAL XR CHEST 1 VIEW PORTABLE AP supine DATE AND TIME: 11/20/2017 2:58 PM CLINICAL STATEMENT: Check line placement COMPARISON: 11/11/2017 FINDINGS: Interval sternotomy has been performed. Sternal hardware, epicardial pacing wires, and LEFT atrial appendage clip are present along with mediastinal drains. Endotracheal tube tip is 4.5 cm abo ve the vielka. Enteric tube extends to the stomach. RIGHT jugular and LEFT subclavian central lines terminate in the SVC. The cardiomediastinal contours are normal. There is no vascular congestion, pleu ral effusion, or pneumothorax. Streaky opacities are present in the retrocardiac LEFT lower lobe. Lungs are otherwise clear. Aorta is atherosclerotic. No displaced fractures are identified. IMPRESSION: Mild subsegmental atelectasis LEFT lower lobe post median sternotomy. Life support devices are in good position. Interpreted By: Gustavo Mcnair MD Preliminary Report By: Gustavo Mcnair MD Electronically Signed By: Gustavo Mcnair MD Dictated Date: 11/20/2017 3:17:40 PM Prelim Date: 11/20/2017 3:17:40 PM Sign Date: 11/20/2017 3:21:51 PM BG Collected: 11/20/2017 Status: F Source: [facility] 2:22 PM [facility] REPOSITORY TYPE CODE TESTS RESULT OUT OF REFERENCE UNITS RANGE LAB PH(LOINC) 7.380-7.460 Low pH 7.366 LAB PCO2(LOINC 32.0-46.0 mmHg ) pCO2 High 47.6 LAB PO2(LOINC) 74.0-108.0 mmHg pO2 High 240.5 LAB HCO3(LOINC 21.0-29.0 mmol/L ) HCO3 26.7 LAB TCO2(LOINC 22.0-30.0 mmol/L ) CO2 Totl 28.1 LAB BE(LOINC) mmol/L Base Excess 0.8 LAB O2SAT(LOIN 92.0-96.0 % C) O2 Sat High 99.1 LAB BPRES(LOIN mmHg C) Barometric 733 Pressure Performed By: #### BG #### [place] [address] CAION Collected: 11/20/2017 Status: F Source: [facility] 2:22 PM [facility] REPOSITORY TYPE CODE TESTS RESULT OUT OF REFERENCE UNITS RANGE LAB CAION(LOINC 1.12-1.32 mmol/L ) Low Calcium 1.07 Ionized Performed By: #### SHILPI, HH, GFR, BMP, MG #### [place] [address] HH Collected: 11/20/2017 Status: F Source: [facility] 2:22 [facility] REPOSITORY TYPE CODE TESTS RESULT OUT OF RANGE REFERENCE UNITS LAB HGB(LOINC) 12.0-16.0 G/dL Hgb 13.2 LAB HCT(LOINC) 34.0-46.0 % Hct 39.0 Performed By: #### SHILPI, WILMER, GFR, BMP, MG #### [place] [address] .GFR Collected: 11/20/2017 Status: F Source: [facility] 2:22 [facility] REPOSITORY TYPE CODE TESTS RESULT OUT OF REFERENCE UNITS RANGE LAB GFRAA(LOINC ml/min/1.73 ) sqm GFR 59 Lao Result Comment: GFR Population mean for , Non- Americans Ages 20-29 = 116 mL/min/1.73 sq.m. Ages 30-39 = 107 mL/min/1.73 sq.m. Ages 40-49 = 99 mL/min/1.73 sq.m. Ages 50-59 = 93 mL/min/1.73 sq.m. Ages 60-69 = 85 mL/min/1.73 sq.m. Ages 70+ = 75 mL/min/1.73 sq.m. Chronic Kidney Disease: Less than 60 mL/min/1.73 square meters End Stage Renal Disease: Less than 15 mL/min/1.73 square meters LAB GFRNO(LOINC) ml/min/1.73sqm GFR Non- 49 Result Comment: GFR Population mean for , Non- Americans Ages 20-29 = 116 mL/min/1.73 sq.m. Ages 30-39 = 107 mL/min/1.73 sq.m. Ages 40-49 = 99 mL/min/1.73 sq.m. Ages 50-59 = 93 mL/min/1.73 sq.m. Ages 60-69 = 85 mL/min/1.73 sq.m. Ages 70+ = 75 mL/min/1.73 sq.m. Chronic Kidney Disease: Less than 60 mL/min/1.73 square meters End Stage Renal Disease: Less than 15 mL/min/1.73 square meters Performed By: #### WILMER DOBBINS, GFR, BMP, MG #### [address] [address] BMP Collected: 11/20/2017 Status: F Source: [facility] 2:22 [facility] REPOSITORY TYPE CODE TESTS RESULT OUT OF REFERENCE UNITS RANGE LAB GLU(LOINC) 82-115 mg/dL High Glucose Level 208 LAB NA(LOINC) 136-145 mEq/L Sodium Level 145 LAB K(LOINC) 3.5-5.0 mEq/L Potassium Level 4.7 Result Comment: Specimen slightly hemolyzed. Results may be falsely elevated. LAB CL(LOINC) 98-110 mEq/L Chloride 109 LAB CO2(LOINC) 22-32 mEq/L CO2 27 LAB EBAL(LOINC) 4.0-15.0 mEq/L Electrolyte Balance 9.0 LAB BUN(LOINC) 8.0-22.0 mg/dL BUN 15.0 LAB CRE(LOINC) 0.50-1.20 mg/dL Creatinine Lvl (s) 1.09 LAB BC(LOINC) 10.0-22.0 ratio BUN/Creatinine Ratio 13.8 LAB CA(LOINC) 8.4-10.1 mg/dL Calcium Lvl Low 8.1 Performed By: #### WILMER DOBBINS, GFR, BMP, MG #### [address] [address] MG Collected: 11/20/2017 Status: F Source: [facility] 2:22 [facility] REPOSITORY TYPE CODE TESTS RESULT OUT OF REFERENCE UNITS RANGE LAB MG(LOINC) 1.6-2.4 mg/dL High Magnesium Lvl 3.5 Result Comment: Specimen slightly hemolyzed. Results may be falsely elevated. Performed By: #### WILMER DOBBINS, GFR, BMP, MG #### [address] [address] BGRP Collected: 11/20/2017 Status: F Source: [facility] 1:30 PM [facility] REPOSITORY TYPE CODE TESTS RESULT OUT OF REFERENCE UNITS RANGE LAB PHRP(LOINC 7.380-7.460 ) Low pH (poct) - POC 7.321 LAB PCORP(LOIN 32.0-46.0 mmHg C) PCO2 - POC High 48.0 LAB PO2RP(LOIN 74.0-108.0 mmHg C) PO2 - POC High 305.0 LAB HCORP(LOIN 21.0-29.0 mmol/L C) Bicarbonate - POC 24.2 LAB TCORP(LOIN 22.0-30.0 mmol/L C) Total CO2 - POC 25.7 LAB BERP(LOINC mmol/L ) Base Excess - POC -2.1 LAB O2RP(LOINC 92.0-96.0 % ) O2 High Saturation - POC 99.0 Performed By: #### BGRP, CLRP, HGBRP, GLURP, KRP, HCTRP, NARP, CARP #### [place] [address] CLRP Collected: 11/20/2017 Status: F Source: [facility] 1:30 PM [facility] REPOSITORY TYPE CODE TESTS RESULT OUT OF REFERENCE UNITS RANGE LAB CLRP(LOINC) 98-110 mEq/L Chloride - POC 105 Performed By: #### BGRP, CLRP, HGBRP, GLURP, KRP, HCTRP, NARP, CARP #### [place] [address] HGBRP Collected: 11/20/2017 Status: F Source: [facility] 1:30 PM [facility] REPOSITORY TYPE CODE TESTS RESULT OUT OF REFERENCE UNITS RANGE LAB HGBRP(LOIN 12.0-16.0 G/dL C) Hemoglobin - POC 12.4 Performed By: #### BGRP, CLRP, HGBRP, GLURP, KRP, HCTRP, NARP, CARP #### [place] [address] GLURP Collected: 11/20/2017 Status: F Source: [facility] 1:30 PM [facility] REPOSITORY TYPE CODE TESTS RESULT OUT OF REFERENCE UNITS RANGE LAB GLURP(LOINC 82-115 mg/dL ) High Glucose - POC 208 Performed By: #### BGRP, CLRP, HGBRP, GLURP, KRP, HCTRP, NARP, CARP #### [place] [address] KRP Collected: 11/20/2017 Status: F Source: [facility] 1:30 PM [facility] REPOSITORY TYPE CODE TESTS RESULT OUT OF REFERENCE UNITS RANGE LAB KRP(LOINC) 3.5-5.0 mEq/L Potassium - POC 4.6 Performed By: #### BGRP, CLRP, HGBRP, GLURP, KRP, HCTRP, NARP, CARP #### [place] [address] HCTRP Collected: 11/20/2017 Status: F Source: [facility] 1:30 PM [facility] REPOSITORY TYPE CODE TESTS RESULT OUT OF REFERENCE UNITS RANGE LAB HCTRP(LOIN 37.0-47.0 % C) Low Hematocrit - POC 36.0 Performed By: #### BGRP, CLRP, HGBRP, GLURP, KRP, HCTRP, NARP, CARP #### [place] [address] NARP Collected: 11/20/2017 Status: F Source: [facility] 1:30 PM [facility] REPOSITORY TYPE CODE TESTS RESULT OUT OF REFERENCE UNITS RANGE LAB NARP(LOINC) 136-145 mEq/L Sodium - POC 138 Performed By: #### BGRP, CLRP, HGBRP, GLURP, KRP, HCTRP, NARP, CARP #### [place] [address] CARP Collected: 11/20/2017 Status: F Source: [facility] 1:30 PM [facility] REPOSITORY TYPE CODE TESTS RESULT OUT OF REFERENCE UNITS RANGE LAB CARP(LOINC) 1.12-1.32 mmol/L Low Ionized 1.11 Calcium - POC Performed By: #### BGRP, CLRP, HGBRP, GLURP, KRP, HCTRP, NARP, CARP #### [place] [address] BGRP Collected: 11/20/2017 Status: F Source: [facility] 12:16 PM [facility] REPOSITORY TYPE CODE TESTS RESULT OUT OF REFERENCE UNITS RANGE LAB PHRP(LOINC 7.380-7.460 ) pH (poct) - POC 7.421 LAB PCORP(LOIN 32.0-46.0 mmHg C) PCO2 - POC 37.2 LAB PO2RP(LOIN 74.0-108.0 mmHg C) PO2 - POC High 390.0 LAB HCORP(LOIN 21.0-29.0 mmol/L C) Bicarbonate - POC 23.6 LAB TCORP(LOIN 22.0-30.0 mmol/L C) Total CO2 - POC 24.8 LAB BERP(LOINC mmol/L ) Base Excess - POC -0.6 LAB O2RP(LOINC 92.0-96.0 % ) O2 High Saturation - POC 98.8 Performed By: #### BGRP, CLRP, HGBRP, GLURP, KRP, HCTRP, NARP, CARP #### [place] [address] CLRP Collected: 11/20/2017 Status: F Source: [facility] 12:16 [facility] REPOSITORY TYPE CODE TESTS RESULT OUT OF REFERENCE UNITS RANGE LAB CLRP(LOINC) 98-110 mEq/L Chloride - POC 104 Performed By: #### BGRP, CLRP, HGBRP, GLURP, KRP, HCTRP, NARP, CARP #### [place] [address] HGBRP Collected: 11/20/2017 Status: F Source: [facility] 12:16 [facility] REPOSITORY TYPE CODE TESTS RESULT OUT OF REFERENCE UNITS RANGE LAB HGBRP(LOIN 12.0-16.0 G/dL C) Low Hemoglobin - POC 9.7 Performed By: #### BGRP, CLRP, HGBRP, GLURP, KRP, HCTRP, NARP, CARP #### [place] [address] GLURP Collected: 11/20/2017 Status: F Source: [facility] 12:16 [facility] REPOSITORY TYPE CODE TESTS RESULT OUT OF REFERENCE UNITS RANGE LAB GLURP(LOINC 82-115 mg/dL ) High Glucose - POC 226 Performed By: #### BGRP, CLRP, HGBRP, GLURP, KRP, HCTRP, NARP, CARP #### [place] [address] KRP Collected: 11/20/2017 Status: F Source: [facility] 12:16 PM [facility] REPOSITORY TYPE CODE TESTS RESULT OUT OF REFERENCE UNITS RANGE LAB KRP(LOINC) 3.5-5.0 mEq/L High Potassium - POC 5.3 Performed By: #### BGRP, CLRP, HGBRP, GLURP, KRP, HCTRP, NARP, CARP #### [place] [id number] HCTRP Collected: 11/20/2017 Status: F Source: [facility] 12:16 PM [facility] REPOSITORY TYPE CODE TESTS RESULT OUT OF REFERENCE UNITS RANGE LAB HCTRP(LOIN 37.0-47.0 % C) Low Hematocrit - POC 29.0 Performed By: #### BGRP, CLRP, HGBRP, GLURP, KRP, HCTRP, NARP, CARP #### [place] [id number] NARP Collected: 11/20/2017 Status: F Source: [facility] 12:16 PM [facility] REPOSITORY TYPE CODE TESTS RESULT OUT OF REFERENCE UNITS RANGE LAB NARP(LOINC) 136-145 mEq/L Low Sodium - POC 135 Performed By: #### BGRP, CLRP, HGBRP, GLURP, KRP, HCTRP, NARP, CARP #### [place] [id number] CARP Collected: 11/20/2017 Status: F Source: [facility] 12:16 PM [facility] REPOSITORY TYPE CODE TESTS RESULT OUT OF REFERENCE UNITS RANGE LAB CARP(LOINC) 1.12-1.32 mmol/L Low Ionized 1.03 Calcium - POC Performed By: #### BGRP, CLRP, HGBRP, GLURP, KRP, HCTRP, NARP, CARP #### [place] [id number] BGRP Collected: 11/20/2017 Status: F Source: [facility] 11:47 AM [facility] REPOSITORY TYPE CODE TESTS RESULT OUT OF REFERENCE UNITS RANGE LAB PHRP(LOINC 7.380-7.460 ) pH (poct) - POC 7.446 LAB PCORP(LOIN 32.0-46.0 mmHg C) PCO2 - POC 36.1 LAB PO2RP(LOIN 74.0-108.0 mmHg C) PO2 - POC High 341.7 LAB HCORP(LOIN 21.0-29.0 mmol/L C) Bicarbonate - POC 24.3 LAB TCORP(LOIN 22.0-30.0 mmol/L C) Total CO2 - POC 25.4 LAB BERP(LOINC mmol/L ) Base Excess - POC 0.4 LAB O2RP(LOINC 92.0-96.0 % ) O2 High Saturation - POC 98.7 Performed By: #### BGRP, CLRP, HGBRP, GLURP, KRP, HCTRP, NARP, CARP #### [place] [id number] CLRP Collected: 11/20/2017 Status: F Source: [facility] 11:47 AM [facility] REPOSITORY TYPE CODE TESTS RESULT OUT OF REFERENCE UNITS RANGE LAB CLRP(LOINC) 98-110 mEq/L Chloride - POC 104 Performed By: #### BGRP, CLRP, HGBRP, GLURP, KRP, HCTRP, NARP, CARP #### [place] [id number] HGBRP Collected: 11/20/2017 Status: F Source: [facility] 11:47 AM [facility] REPOSITORY TYPE CODE TESTS RESULT OUT OF REFERENCE UNITS RANGE LAB HGBRP(LOIN 12.0-16.0 G/dL C) Low Hemoglobin - POC 9.8 Performed By: #### BGRP, CLRP, HGBRP, GLURP, KRP, HCTRP, NARP, CARP #### [place] [address] GLURP Collected: 11/20/2017 Status: F Source: [facility] 11:47 AM [facility] REPOSITORY TYPE CODE TESTS RESULT OUT OF REFERENCE UNITS RANGE LAB GLURP(LOINC 82-115 mg/dL ) High Glucose - POC 255 Performed By: #### BGRP, CLRP, HGBRP, GLURP, KRP, HCTRP, NARP, CARP #### [place] [id number] KRP Collected: 11/20/2017 Status: F Source: [facility] 11:47 AM [facility] REPOSITORY TYPE CODE TESTS RESULT OUT OF REFERENCE UNITS RANGE LAB KRP(LOINC) 3.5-5.0 mEq/L Potassium - POC 4.8 Performed By: #### BGRP, CLRP, HGBRP, GLURP, KRP, HCTRP, NARP, CARP #### [place] [address] HCTRP Collected: 11/20/2017 Status: F Source: [facility] 11:47 AM [facility] REPOSITORY TYPE CODE TESTS RESULT OUT OF REFERENCE UNITS RANGE LAB HCTRP(LOIN 37.0-47.0 % C) Low Hematocrit - POC 29.0 Performed By: #### BGRP, CLRP, HGBRP, GLURP, KRP, HCTRP, NARP, CARP #### [place] [address] NARP Collected: 11/20/2017 Status: F Source: [facility] 11:47 AM [facility] REPOSITORY TYPE CODE TESTS RESULT OUT OF REFERENCE UNITS RANGE LAB NARP(LOINC) 136-145 mEq/L Low Sodium - POC 135 Performed By: #### BGRP, CLRP, HGBRP, GLURP, KRP, HCTRP, NARP, CARP #### [place] [address] CARP Collected: 11/20/2017 Status: F Source: [facility] 11:47 AM [facility] REPOSITORY TYPE CODE TESTS RESULT OUT OF REFERENCE UNITS RANGE LAB CARP(LOINC) 1.12-1.32 mmol/L Low Ionized 1.00 Calcium - POC Performed By: #### BGRP, CLRP, HGBRP, GLURP, KRP, HCTRP, NARP, CARP #### [place] [address] BGRP Collected: 11/20/2017 Status: F Source: [facility] 11:21 AM [facility] REPOSITORY TYPE CODE TESTS RESULT OUT OF REFERENCE UNITS RANGE LAB PHRP(LOINC 7.380-7.460 ) Low pH (poct) - POC 7.278 LAB PCORP(LOIN 32.0-46.0 mmHg C) PCO2 - POC 42.8 LAB PO2RP(LOIN 74.0-108.0 mmHg C) PO2 - POC High 301.9 LAB HCORP(LOIN 21.0-29.0 mmol/L C) Low Bicarbonate - POC 19.6 LAB TCORP(LOIN 22.0-30.0 mmol/L C) Low Total CO2 - POC 20.9 LAB BERP(LOINC mmol/L ) Base Excess - POC -6.8 LAB O2RP(LOINC 92.0-96.0 % ) O2 High Saturation - POC 98.7 Performed By: #### BGRP, CLRP, HGBRP, GLURP, KRP, HCTRP, NARP, CARP #### [place] [address] CLRP Collected: 11/20/2017 Status: F Source: [facility] 11:21 AM [facility] REPOSITORY TYPE CODE TESTS RESULT OUT OF REFERENCE UNITS RANGE LAB CLRP(LOINC) 98-110 mEq/L Chloride - POC 104 Performed By: #### BGRP, CLRP, HGBRP, GLURP, KRP, HCTRP, NARP, CARP #### [place] [address] HGBRP Collected: 11/20/2017 Status: F Source: [facility] 11:21 AM [facility] REPOSITORY TYPE CODE TESTS RESULT OUT OF REFERENCE UNITS RANGE LAB HGBRP(LOIN 12.0-16.0 G/dL C) Low Hemoglobin - POC 9.9 Performed By: #### BGRP, CLRP, HGBRP, GLURP, KRP, HCTRP, NARP, CARP #### [place] [address] GLURP Collected: 11/20/2017 Status: F Source: [facility] 11:21 AM [facility] REPOSITORY TYPE CODE TESTS RESULT OUT OF REFERENCE UNITS RANGE LAB GLURP(LOINC 82-115 mg/dL ) High Glucose - POC 277 Performed By: #### BGRP, CLRP, HGBRP, GLURP, KRP, HCTRP, NARP, CARP #### [place] [address] KRP Collected: 11/20/2017 Status: F Source: [facility] 11:21 AM [facility] REPOSITORY TYPE CODE TESTS RESULT OUT OF REFERENCE UNITS RANGE LAB KRP(LOINC) 3.5-5.0 mEq/L High Potassium - POC 5.3 Performed By: #### BGRP, CLRP, HGBRP, GLURP, KRP, HCTRP, NARP, CARP #### [place] [address] HCTRP Collected: 11/20/2017 Status: F Source: [facility] 11:21 AM [facility] REPOSITORY TYPE CODE TESTS RESULT OUT OF REFERENCE UNITS RANGE LAB HCTRP(LOIN 37.0-47.0 % C) Low Hematocrit - POC 29.0 Performed By: #### BGRP, CLRP, HGBRP, GLURP, KRP, HCTRP, NARP, CARP #### [place] [address] NARP Collected: 11/20/2017 Status: F Source: [facility] 11:21 AM [facility] REPOSITORY TYPE CODE TESTS RESULT OUT OF REFERENCE UNITS RANGE LAB NARP(LOINC) 136-145 mEq/L Low Sodium - POC 132 Performed By: #### BGRP, CLRP, HGBRP, GLURP, KRP, HCTRP, NARP, CARP #### [place] [address] CARP Collected: 11/20/2017 Status: F Source: [facility] 11:21 AM [facility] REPOSITORY TYPE CODE TESTS RESULT OUT OF REFERENCE UNITS RANGE LAB CARP(LOINC) 1.12-1.32 mmol/L Low Ionized 0.90 Calcium - POC Performed By: #### BGRP, CLRP, HGBRP, GLURP, KRP, HCTRP, NARP, CARP #### [place] [address] RBC (PRODUCT) Collected: 11/20/2017 Status: F Source: [facility] 10:59 AM [facility] REPOSITORY TYPE CODE TESTS RESULT OUT OF REFERENCE UNITS RANGE LAB RBCPR(LOINC ) RBC Product RBC Ready Ready for Pickup Performed By: #### RBCP #### [place] [address] BGRP Collected: 11/20/2017 Status: F Source: [facility] 10:46 AM [facility] REPOSITORY TYPE CODE TESTS RESULT OUT OF REFERENCE UNITS RANGE LAB PHRP(LOINC 7.380-7.460 ) pH (poct) - POC 7.432 LAB PCORP(LOIN 32.0-46.0 mmHg C) Low PCO2 - POC 31.3 LAB PO2RP(LOIN 74.0-108.0 mmHg C) PO2 - POC High 310.6 LAB HCORP(LOIN 21.0-29.0 mmol/L C) Low Bicarbonate - POC 20.4 LAB TCORP(LOIN 22.0-30.0 mmol/L C) Low Total CO2 - POC 21.4 LAB BERP(LOINC mmol/L ) Base Excess - POC -3.4 LAB O2RP(LOINC 92.0-96.0 % ) O2 High Saturation - POC 98.8 Performed By: #### BGRP, CLRP, HGBRP, GLURP, KRP, HCTRP, NARP, CARP #### [place] [address] CLRP Collected: 11/20/2017 Status: F Source: [facility] 10:46 AM [facility] REPOSITORY TYPE CODE TESTS RESULT OUT OF REFERENCE UNITS RANGE LAB CLRP(LOINC) 98-110 mEq/L Chloride - POC 104 Performed By: #### BGRP, CLRP, HGBRP, GLURP, KRP, HCTRP, NARP, CARP #### [place] [address] HGBRP Collected: 11/20/2017 Status: F Source: [facility] 10:46 AM [facility] REPOSITORY TYPE CODE TESTS RESULT OUT OF REFERENCE UNITS RANGE LAB HGBRP(LOIN 12.0-16.0 G/dL C) Low Hemoglobin - POC 7.9 Performed By: #### BGRP, CLRP, HGBRP, GLURP, KRP, HCTRP, NARP, CARP #### [place] [address] GLURP Collected: 11/20/2017 Status: F Source: [facility] 10:46 AM [facility] REPOSITORY TYPE CODE TESTS RESULT OUT OF REFERENCE UNITS RANGE LAB GLURP(LOINC 82-115 mg/dL ) High Glucose - POC 288 Performed By: #### BGRP, CLRP, HGBRP, GLURP, KRP, HCTRP, NARP, CARP #### [place] [address] KRP Collected: 11/20/2017 Status: F Source: [facility] 10:46 AM [facility] REPOSITORY TYPE CODE TESTS RESULT OUT OF REFERENCE UNITS RANGE LAB KRP(LOINC) 3.5-5.0 mEq/L Potassium - POC 4.4 Performed By: #### BGRP, CLRP, HGBRP, GLURP, KRP, HCTRP, NARP, CARP #### [place] [address] HCTRP Collected: 11/20/2017 Status: F Source: [facility] 10:46 AM [facility] REPOSITORY TYPE CODE TESTS RESULT OUT OF REFERENCE UNITS RANGE LAB HCTRP(LOIN 37.0-47.0 % C) Low Hematocrit - POC 23.0 Performed By: #### BGRP, CLRP, HGBRP, GLURP, KRP, HCTRP, NARP, CARP #### [place] [address] NARP Collected: 11/20/2017 Status: F Source: [facility] 10:46 AM [facility] REPOSITORY TYPE CODE TESTS RESULT OUT OF REFERENCE UNITS RANGE LAB NARP(LOINC) 136-145 mEq/L Low Sodium - POC 133 Performed By: #### BGRP, CLRP, HGBRP, GLURP, KRP, HCTRP, NARP, CARP #### [place] [address] CARP Collected: 11/20/2017 Status: F Source: [facility] 10:46 AM [facility] REPOSITORY TYPE CODE TESTS RESULT OUT OF REFERENCE UNITS RANGE LAB CARP(LOINC) 1.12-1.32 mmol/L Low Ionized 1.05 Calcium - POC Performed By: #### BGRP, CLRP, HGBRP, GLURP, KRP, HCTRP, NARP, CARP #### [place] [address] BGRP Collected: 11/20/2017 Status: F Source: [facility] 10:16 AM [facility] REPOSITORY TYPE CODE TESTS RESULT OUT OF REFERENCE UNITS RANGE LAB PHRP(LOINC 7.380-7.460 ) Low pH (poct) - POC 7.302 LAB PCORP(LOIN 32.0-46.0 mmHg C) PCO2 - POC High 48.7 LAB PO2RP(LOIN 74.0-108.0 mmHg C) PO2 - POC High 318.3 LAB HCORP(LOIN 21.0-29.0 mmol/L C) Bicarbonate - POC 23.5 LAB TCORP(LOIN 22.0-30.0 mmol/L C) Total CO2 - POC 25.0 LAB BERP(LOINC mmol/L ) Base Excess - POC -2.8 LAB O2RP(LOINC 92.0-96.0 % ) O2 High Saturation - POC 98.8 Performed By: #### BGRP, CLRP, HGBRP, GLURP, KRP, HCTRP, NARP, CARP #### [place] [address] CLRP Collected: 11/20/2017 Status: F Source: [facility] 10:16 AM [facility] REPOSITORY TYPE CODE TESTS RESULT OUT OF REFERENCE UNITS RANGE LAB CLRP(LOINC) 98-110 mEq/L Chloride - POC 104 Performed By: #### BGRP, CLRP, HGBRP, GLURP, KRP, HCTRP, NARP, CARP #### [place] [address] HGBRP Collected: 11/20/2017 Status: F Source: [facility] 10:16 AM [facility] REPOSITORY TYPE CODE TESTS RESULT OUT OF REFERENCE UNITS RANGE LAB HGBRP(LOIN 12.0-16.0 G/dL C) Low Hemoglobin - POC 8.1 Performed By: #### BGRP, CLRP, HGBRP, GLURP, KRP, HCTRP, NARP, CARP #### [place] [address] GLURP Collected: 11/20/2017 Status: F Source: [facility] 10:16 AM [facility] REPOSITORY TYPE CODE TESTS RESULT OUT OF REFERENCE UNITS RANGE LAB GLURP(LOINC 82-115 mg/dL ) High Glucose - POC 294 Performed By: #### BGRP, CLRP, HGBRP, GLURP, KRP, HCTRP, NARP, CARP #### [place] [address] KRP Collected: 11/20/2017 Status: F Source: [facility] 10:16 AM [facility] REPOSITORY TYPE CODE TESTS RESULT OUT OF REFERENCE UNITS RANGE LAB KRP(LOINC) 3.5-5.0 mEq/L Potassium - POC 4.8 Performed By: #### BGRP, CLRP, HGBRP, GLURP, KRP, HCTRP, NARP, CARP #### [place] [address] HCTRP Collected: 11/20/2017 Status: F Source: [facility] 10:16 AM [facility] REPOSITORY TYPE CODE TESTS RESULT OUT OF REFERENCE UNITS RANGE LAB HCTRP(LOIN 37.0-47.0 % C) Low Hematocrit - POC 24.0 Performed By: #### BGRP, CLRP, HGBRP, GLURP, KRP, HCTRP, NARP, CARP #### [place] [address] NARP Collected: 11/20/2017 Status: F Source: [facility] 10:16 AM [facility] REPOSITORY TYPE CODE TESTS RESULT OUT OF REFERENCE UNITS RANGE LAB NARP(LOINC) 136-145 mEq/L Low Sodium - POC 132 Performed By: #### BGRP, CLRP, HGBRP, GLURP, KRP, HCTRP, NARP, CARP #### [place] [address] CARP Collected: 11/20/2017 Status: F Source: [facility] 10:16 AM [facility] REPOSITORY TYPE CODE TESTS RESULT OUT OF REFERENCE UNITS RANGE LAB CARP(LOINC) 1.12-1.32 mmol/L Low Ionized 1.00 Calcium - POC Performed By: #### BGRP, CLRP, HGBRP, GLURP, KRP, HCTRP, NARP, CARP #### [place] [address] FINAL SURGICAL Observed: 11/20/2017 Status: F Source: [facility] PATHOLOGY REPORT 10:14 AM [facility] REPOSITORY . Pathology Reports Accession: Collected Date/Time: Received Date/Time: Pathologist: [id number] 11/20/2017 10:14 EDT 11/21/2017 08:26 EDT MD JEFRY HOPKINS Final Surgical Pathology Report DIAGNOSIS: MITRAL VALVE -- PARTIALLY CALCIFIED MITRAL VALVE TISSUE WITH MYXOID CHANGE IDENTIFIED. CLINICAL INFORMATION: Procedure: CORONARY ARTERY BYPASS GRAFT x1 USING RIGHT GREATER SAPHENOUS VEIN VIA ENDOSCOPIC VEIN HARVEST / MITRAL VALVE REPLACEMENT USING 25 MM. DONATO MAGNA MITRAL EASE / CRYO-MAZE PROCEDURE / INSERTION OF TEMPORARY PACING WIRES Preoperative diagnosis: CORONARY ARTERY DISEASE /MITRAL REGURGITATION Postoperative diagnosis: CORONARY ARTERY DISEASE / MITRAL REGURGITATION SPECIMEN: A HEART VALVE - MITRAL GROSS DESCRIPTION: Submitted in formalin consists of multiple irregular pink- sotelo tissue fragments and a portion of mitral valve, altogether measuring 3 x 3 x 1.4 cm. [employer] sections submitted in one cassette. dictated by Vasiliy Hopkins M.D. Dictated by JEFRY HOPKINS MD MICROSCOPIC DESCRIPTION: Slides reviewed. Electronically Signed by Pathology Report verified by [facility] Electronically signed by JEFRY HOPKINS MD Sign out Date: 11/23/2017 10:24 Performing Lab: [facility], [address] [place] [address] Performed By: #### SPFR #### [place] [address] RBC (PRODUCT) Collected: 11/20/2017 Status: F Source: [facility] 9:58 AM [facility] REPOSITORY TYPE CODE TESTS RESULT OUT OF REFERENCE UNITS RANGE LAB RBCPR(LOINC ) RBC Product RBC Ready Ready for Pickup Performed By: #### RBCP #### [place] [address] BGRP Collected: 11/20/2017 Status: F Source: [facility] 9:48 AM [facility] REPOSITORY TYPE CODE TESTS RESULT OUT OF REFERENCE UNITS RANGE LAB PHRP(LOINC 7.380-7.460 ) Low pH (poct) - POC 7.375 LAB PCORP(LOIN 32.0-46.0 mmHg C) PCO2 - POC 40.0 LAB PO2RP(LOIN 74.0-108.0 mmHg C) PO2 - POC High 395.7 LAB HCORP(LOIN 21.0-29.0 mmol/L C) Bicarbonate - POC 22.9 LAB TCORP(LOIN 22.0-30.0 mmol/L C) Total CO2 - POC 24.1 LAB BERP(LOINC mmol/L ) Base Excess - POC -2.1 LAB O2RP(LOINC 92.0-96.0 % ) O2 High Saturation - POC 98.9 Performed By: #### BGRP, CLRP, HGBRP, GLURP, KRP, HCTRP, NARP, CARP #### [place] [address] CLRP Collected: 11/20/2017 Status: F Source: [facility] 9:48 AM [facility] REPOSITORY TYPE CODE TESTS RESULT OUT OF REFERENCE UNITS RANGE LAB CLRP(LOINC) 98-110 mEq/L Chloride - POC 104 Performed By: #### BGRP, CLRP, HGBRP, GLURP, KRP, HCTRP, NARP, CARP #### [place] [address] HGBRP Collected: 11/20/2017 Status: F Source: [facility] 9:48 AM [facility] REPOSITORY TYPE CODE TESTS RESULT OUT OF RANGE REFERENCE UNITS LAB HGBRP(LOIN 12.0-16.0 G/dL C) Abnormal Hemoglobin - POC 6.1 Alert Performed By: #### BGRP, CLRP, HGBRP, GLURP, KRP, HCTRP, NARP, CARP #### [place] [address] GLURP Collected: 11/20/2017 Status: F Source: [facility] 9:48 AM [facility] REPOSITORY TYPE CODE TESTS RESULT OUT OF REFERENCE UNITS RANGE LAB GLURP(LOINC 82-115 mg/dL ) High Glucose - POC 258 Performed By: #### BGRP, CLRP, HGBRP, GLURP, KRP, HCTRP, NARP, CARP #### [place] [address] KRP Collected: 11/20/2017 Status: F Source: [facility] 9:48 AM [facility] REPOSITORY TYPE CODE TESTS RESULT OUT OF REFERENCE UNITS RANGE LAB KRP(LOINC) 3.5-5.0 mEq/L Potassium - POC 4.2 Performed By: #### BGRP, CLRP, HGBRP, GLURP, KRP, HCTRP, NARP, CARP #### [place] [address] HCTRP Collected: 11/20/2017 Status: F Source: [facility] 9:48 AM [facility] REPOSITORY TYPE CODE TESTS RESULT OUT OF REFERENCE UNITS RANGE LAB HCTRP(LOIN 37.0-47.0 % C) Low Hematocrit - POC 18.0 Performed By: #### BGRP, CLRP, HGBRP, GLURP, KRP, HCTRP, NARP, CARP #### [place] [address] NARP Collected: 11/20/2017 Status: F Source: [facility] 9:48 AM [facility] REPOSIT[facility] TYPE CODE TESTS RESULT OUT OF REFERENCE UNITS RANGE LAB NARP(LOINC) 136-145 mEq/L Low Sodium - POC 132 Performed By: #### BGRP, CLRP, HGBRP, GLURP, KRP, HCTRP, NARP, CARP #### [place] [address] CARP Collected: 11/20/2017 Status: F Source: [facility] 9:48 AM [facility] REPOSITORY TYPE CODE TESTS RESULT OUT OF REFERENCE UNITS RANGE LAB CARP(LOINC) 1.12-1.32 mmol/L Low Ionized 1.06 Calcium - POC Performed By: #### BGRP, CLRP, HGBRP, GLURP, KRP, HCTRP, NARP, CARP #### [place] [address] BGRP Collected: 11/20/2017 Status: F Source: [facility] 7:45 AM [facility] REPOSITORY TYPE CODE TESTS RESULT OUT OF REFERENCE UNITS RANGE LAB PHRP(LOINC 7.380-7.460 ) pH (poct) - POC 7.396 LAB PCORP(LOIN 32.0-46.0 mmHg C) PCO2 - POC 37.3 LAB PO2RP(LOIN 74.0-108.0 mmHg C) PO2 - POC High 436.9 LAB HCORP(LOIN 21.0-29.0 mmol/L C) Bicarbonate - POC 22.4 LAB TCORP(LOIN 22.0-30.0 mmol/L C) Total CO2 - POC 23.5 LAB BERP(LOINC mmol/L ) Base Excess - POC -2.1 LAB O2RP(LOINC 92.0-96.0 % ) O2 High Saturation - POC 99.4 Performed By: #### BGRP, CLRP, HGBRP, GLURP, KRP, HCTRP, NARP, CARP #### [place] [address] CLRP Collected: 11/20/2017 Status: F Source: [facility] 7:45 AM [facility] REPOSITORY TYPE CODE TESTS RESULT OUT OF REFERENCE UNITS RANGE LAB CLRP(LOINC) 98-110 mEq/L Chloride - POC 106 Performed By: #### BGRP, CLRP, HGBRP, GLURP, KRP, HCTRP, NARP, CARP #### [place] [address] HGBRP Collected: 11/20/2017 Status: F Source: [facility] 7:45 AM [facility] REPOSITORY TYPE CODE TESTS RESULT OUT OF REFERENCE UNITS RANGE LAB HGBRP(LOIN 12.0-16.0 G/dL C) Low Hemoglobin - POC 10.7 Performed By: #### BGRP, CLRP, HGBRP, GLURP, KRP, HCTRP, NARP, CARP #### [place] [address] GLURP Collected: 11/20/2017 Status: F Source: [facility] 7:45 AM [facility] REPOSITORY TYPE CODE TESTS RESULT OUT OF REFERENCE UNITS RANGE LAB GLURP(LOINC 82-115 mg/dL ) High Glucose - POC 199 Performed By: #### BGRP, CLRP, HGBRP, GLURP, KRP, HCTRP, NARP, CARP #### [place] [address] KRP Collected: 11/20/2017 Status: F Source: [facility] 7:45 AM [facility] REPOSITORY TYPE CODE TESTS RESULT OUT OF REFERENCE UNITS RANGE LAB KRP(LOINC) 3.5-5.0 mEq/L Potassium - POC 4.4 Performed By: #### BGRP, CLRP, HGBRP, GLURP, KRP, HCTRP, NARP, CARP #### [place] [address] HCTRP Collected: 11/20/2017 Status: F Source: [facility] 7:45 AM [facility] REPOSITORY TYPE CODE TESTS RESULT OUT OF REFERENCE UNITS RANGE LAB HCTRP(LOIN 37.0-47.0 % C) Low Hematocrit - POC 31.0 Performed By: #### BGRP, CLRP, HGBRP, GLURP, KRP, HCTRP, NARP, CARP #### [place] [address] NARP Collected: 11/20/2017 Status: F Source: [facility] 7:45 AM [facility] REPOSITORY TYPE CODE TESTS RESULT OUT OF REFERENCE UNITS RANGE LAB NARP(LOINC) 136-145 mEq/L High Sodium - POC 146 Performed By: #### BGRP, CLRP, HGBRP, GLURP, KRP, HCTRP, NARP, CARP #### [facility] [address] [place] [address] CARP Collected: 11/20/2017 Status: F Source: [facility] 7:45 AM [facility] REPOSITORY TYPE CODE TESTS RESULT OUT OF REFERENCE UNITS RANGE LAB CARP(LOINC) 1.12-1.32 mmol/L Ionized 1.17 Calcium - POC Performed By: #### BGRP, CLRP, HGBRP, GLURP, KRP, HCTRP, NARP, CARP #### [facility] [address] [place] [address] PLATELET (PRODUCT) Collected: 11/20/2017 Status: F Source: [facility] 5:42 AM [facility] REPOSITORY Order Comment: ON HOLD FOR CVOR TYPE CODE TESTS RESULT OUT OF REFERENCE UNITS RANGE LAB PPR(LOINC) Platelet Platelet Ready Product Ready for Pickup Performed By: #### PLTP #### [place] [address] CBC Collected: 11/20/2017 Status: F Source: [facility] 4:44 AM [facility] REPOSITORY TYPE CODE TESTS RESULT OUT OF REFERENCE UNITS RANGE LAB WBC(LOINC) 4.50-10.80 10 3/mcL WBC 7.50 LAB RBCCT(LOINC 4.10-5.30 10 6/mcL ) Low RBC 3.14 LAB HGB(LOINC) 12.0-16.0 G/dL Low Hgb 10.0 LAB HCT(LOINC) 34.0-46.0 % Low Hct 29.2 LAB MCV(LOINC) 80.0-99.0 fL MCV 93.2 LAB MCH(LOINC) 27.0-33.0 pg MCH 31.9 LAB MCHC(LOINC) 32.0-36.0 G/dL MCHC 34.2 LAB RDW(LOINC) 11.5-15.5 % RDW 15.0 LAB PLT(LOINC) 150-450 10 3/mcL Platelet 275 LAB MPV(LOINC) 6.6-10.5 fL MPV 8.4 Performed By: #### CBC, ADIFF, ANEU, APTT #### [place] [address] .AUTO DIFF Collected: 11/20/2017 Status: F Source: [facility] 4:44 AM [facility] REPOSITORY TYPE CODE TESTS RESULT OUT OF REFERENCE UNITS RANGE LAB EUGENIE(LOINC) 50.0-75.0 % Neutrophil % 72.8 LAB LYM(LOINC) 20.0-40.0 % Low Lymphocyte % 14.4 LAB MON(LOINC) 2.0-13.0 % Monocyte % 7.6 LAB EO(LOINC) 0.0-6.0 % Eosinophil % 4.0 LAB BAS(LOINC) 0.0-2.5 % Basophil % 1.2 LAB ABLYM(LOIN 0.90-4.32 10 3/mcL C) Lymphocyte, 1.10 Absolute LAB NICK(LOINC 0.09-1.40 10 3/mcL ) Monocyte, 0.60 Absolute LAB AEOS(LOINC 0.00-0.65 10 3/mcL ) Eosinophil, 0.30 Absolute LAB ABAS(LOINC 0.00-0.27 10 3/mcL ) Basophil, 0.10 Absolute Performed By: #### CBC, ADIFF, ANEU, APTT #### [place] [address] .NEUABS Collected: 11/20/2017 Status: F Source: [facility] 4:44 AM [facility] REPOSITORY TYPE CODE TESTS RESULT OUT OF REFERENCE UNITS RANGE LAB ANEU(LOINC) 2.25-8.10 10 3/mcL Neutrophil, 5.50 Absolute Performed By: #### CBC, ADIFF, ANEU, APTT #### [place] [address] APTT Collected: 11/20/2017 Status: F Source: [facility] 4:44 AM [facility] REPOSITORY TYPE CODE TESTS RESULT OUT OF REFERENCE UNITS RANGE LAB PDOSE(LOIN C) Heparin dose None (APTT) LAB APTT0(LOIN 25.0-35.0 seconds C) APTT 29.5 Result Comment: For Heparin anticoagulation therapy, the recommended therapeutic range is: 54-77 seconds (APTT Correlation with Anti-Xa therapeutic range of 0.3-0.7 units/ml). PLEASE REFERENCE THE PHARMACY PROTOCOL FOR DOSING. Performed By: #### CBC, ADIFF, ANEU, APTT #### [address] [id number] BMP Collected: 11/20/2017 Status: F Source: [facility] 4:44 AM [facility] REPOSITORY TYPE CODE TESTS RESULT OUT OF REFERENCE UNITS RANGE LAB GLU(LOINC) 82-115 mg/dL Glucose High Level 282 LAB NA(LOINC) 136-145 mEq/L Sodium Level 141 LAB K(LOINC) 3.5-5.0 mEq/L Potassium Level 4.3 LAB CL(LOINC) 98-110 mEq/L Chloride 108 LAB CO2(LOINC) 22-32 mEq/L CO2 28 LAB EBAL(LOINC 4.0-15.0 mEq/L ) Electrolyte Balance 5.0 LAB BUN(LOINC) 8.0-22.0 mg/dL BUN 19.0 LAB CRE(LOINC) 0.50-1.20 mg/dL Creatinine High Lvl (s) 1.33 LAB BC(LOINC) 10.0-22.0 ratio BUN/Creatinine 14.3 Ratio LAB CA(LOINC) 8.4-10.1 mg/dL Calcium Lvl 9.0 Performed By: #### BMP, GFR #### [address] [id number] .GFR Collected: 11/20/2017 Status: F Source: [facility] 4:44 AM [facility] REPOSITORY TYPE CODE TESTS RESULT OUT OF REFERENCE UNITS RANGE LAB GFRAA(LOINC ml/min/1.73 ) sqm GFR 47 La[place] Result Comment: GFR Population mean for , Non- Americans Ages 20-29 = 116 mL/min/1.73 sq.m. Ages 30-39 = 107 mL/min/1.73 sq.m. Ages 40-49 = 99 mL/min/1.73 sq.m. Ages 50-59 = 93 mL/min/1.73 sq.m. Ages 60-69 = 85 mL/min/1.73 sq.m. Ages 70+ = 75 mL/min/1.73 sq.m. Chronic Kidney Disease: Less than 60 mL/min/1.73 square meters End Stage Renal Disease: Less than 15 mL/min/1.73 square meters LAB GFRNO(LOINC) ml/min/1.73sqm GFR Non- 39 Result Comment: GFR Population mean for , Non- Americans Ages 20-29 = 116 mL/min/1.73 sq.m. Ages 30-39 = 107 mL/min/1.73 sq.m. Ages 40-49 = 99 mL/min/1.73 sq.m. Ages 50-59 = 93 mL/min/1.73 sq.m. Ages 60-69 = 85 mL/min/1.73 sq.m. Ages 70+ = 75 mL/min/1.73 sq.m. Chronic Kidney Disease: Less than 60 mL/min/1.73 square meters End Stage Renal Disease: Less than 15 mL/min/1.73 square meters Performed By: #### BMP, GFR #### [place] [id number] TABO Collected: 11/19/2017 Status: F Source: [facility] 12:06 PM [facility] REPOSITORY TYPE CODE TESTS RESULT OUT OF RANGE REFERENCE UNITS LAB ABORH(LOINC ) Unknown ABO/Rh O NEG Interp Performed By: #### ABORH, ANTIS #### [place] [id number] TABS Collected: 11/19/2017 Status: F Source: [facility] 12:06 PM [facility] REPOSITORY TYPE CODE TESTS RESULT OUT OF REFERENCE UNITS RANGE LAB ANST(LOINC ) Antibody Negative ABSC Screen Tango Performed By: #### ABORH, ANTIS #### [place] [id number] RBC (PRODUCT) Collected: 11/19/2017 Status: F Source: [facility] 11:54 AM [facility] REPOSITORY TYPE CODE TESTS RESULT OUT OF REFERENCE UNITS RANGE LAB RBCPR(LOINC ) RBC Product RBC Ready Ready for Pickup Performed By: #### RBCP #### [place] [id number] CBC Collected: 11/19/2017 Status: F Source: [facility] 4:25 AM [facility] REPOSITORY TYPE CODE TESTS RESULT OUT OF REFERENCE UNITS RANGE LAB WBC(LOINC) 4.50-10.80 10 3/mcL WBC 7.80 LAB RBCCT(LOINC 4.10-5.30 10 6/mcL ) Low RBC 3.37 LAB HGB(LOINC) 12.0-16.0 G/dL Low Hgb 10.6 LAB HCT(LOINC) 34.0-46.0 % Low Hct 31.4 LAB MCV(LOINC) 80.0-99.0 fL MCV 93.0 LAB MCH(LOINC) 27.0-33.0 pg MCH 31.3 LAB MCHC(LOINC) 32.0-36.0 G/dL MCHC 33.7 LAB RDW(LOINC) 11.5-15.5 % RDW 15.2 LAB PLT(LOINC) 150-450 10 3/mcL Platelet 296 LAB MPV(LOINC) 6.6-10.5 fL MPV 8.4 Performed By: #### CBC, ADIFF, ANEU, APTT #### [address] [address] .AUTO DIFF Collected: 11/19/2017 Status: F Source: [place] [employer] 4:25 AM [facility] REPOSITORY TYPE CODE TESTS RESULT OUT OF REFERENCE UNITS RANGE LAB EUGENIE(LOINC) 50.0-75.0 % Neutrophil % 70.2 LAB LYM(LOINC) 20.0-40.0 % Low Lymphocyte % 16.4 LAB MON(LOINC) 2.0-13.0 % Monocyte % 8.3 LAB EO(LOINC) 0.0-6.0 % Eosinophil % 4.6 LAB BAS(LOINC) 0.0-2.5 % Basophil % 0.5 LAB ABLYM(LOIN 0.90-4.32 10 3/mcL C) Lymphocyte, 1.30 Absolute LAB NICK(LOINC 0.09-1.40 10 3/mcL ) Monocyte, 0.70 Absolute LAB AEOS(LOINC 0.00-0.65 10 3/mcL ) Eosinophil, 0.40 Absolute LAB ABAS(LOINC 0.00-0.27 10 3/mcL ) Basophil, 0.00 Absolute Performed By: #### CBC, ADIFF, ANEU, APTT #### [address] [address] .NEUABS Collected: 11/19/2017 Status: F Source: [facility] 4:25 AM [facility] REPOSITORY TYPE CODE TESTS RESULT OUT OF REFERENCE UNITS RANGE LAB ANEU(LOINC) 2.25-8.10 10 3/mcL Neutrophil, 5.50 Absolute Performed By: #### CBC, ADIFF, ANEU, APTT #### [address] [address] APTT Collected: 11/19/2017 Status: F Source: [facility] 4:25 AM [facility] REPOSITORY TYPE CODE TESTS RESULT OUT OF REFERENCE UNITS RANGE LAB PDOSE(LOIN C) Heparin dose Heparin IV (APTT) LAB APTT0(LOIN 25.0-35.0 seconds C) High APTT 52.3 Result Comment: For Heparin anticoagulation therapy, the recommended therapeutic range is: 54-77 seconds (APTT Correlation with Anti-Xa therapeutic range of 0.3-0.7 units/ml). PLEASE REFERENCE THE PHARMACY PROTOCOL FOR DOSING. Performed By: #### CBC, ADIFF, ANEU, APTT #### [address] [address] CMP Collected: 11/19/2017 Status: F Source: [facility] 4:25 AM [facility] REPOSITORY TYPE CODE TESTS RESULT OUT OF REFERENCE UNITS RANGE LAB GLU(LOINC) 82-115 mg/dL Glucose High Level 137 LAB NA(LOINC) 136-145 mEq/L Sodium Level 142 LAB K(LOINC) 3.5-5.0 mEq/L Potassium Level 4.4 LAB CL(LOINC) 98-110 mEq/L Chloride 108 LAB CO2(LOINC) 22-32 mEq/L CO2 27 LAB EBAL(LOINC 4.0-15.0 mEq/L ) Electrolyte Balance 7.0 LAB BUN(LOINC) 8.0-22.0 mg/dL BUN 22.0 LAB CRE(LOINC) 0.50-1.20 mg/dL Creatinine High Lvl (s) 1.54 LAB BC(LOINC) 10.0-22.0 ratio BUN/Creatinine 14.3 Ratio LAB CA(LOINC) 8.4-10.1 mg/dL Calcium Lvl 8.5 LAB PROT(LOINC 6.0-8.5 G/dL ) Total Protein 6.2 LAB ALB(LOINC) 3.2-4.8 G/dL Low Albumin Level 2.6 LAB GLB(LOINC) 1.5-3.8 G/dL Globulin 3.6 LAB AG(LOINC) 0.9-1.6 ratio Low A/G Ratio 0.7 LAB BILT(LOINC 0.2-1.2 mg/dL ) Bili Total 0.2 LAB AP(LOINC) 38-126 U/L Alk Phos High 139 LAB AST(LOINC) 8-34 U/L AST/SGOT 32 LAB ALT(LOINC) 10-49 U/L ALT/SGPT 37 Performed By: #### CMP, GFR #### [facility] [address] [place] [address] .GFR Collected: 11/19/2017 Status: F Source: [facility] 4:25 AM [facility] REPOSITORY TYPE CODE TESTS RESULT OUT OF REFERENCE UNITS RANGE LAB GFRAA(LOINC ml/min/1.73 ) sqm GFR 40 Lao Result Comment: GFR Population mean for , Non- Americans Ages 20-29 = 116 mL/min/1.73 sq.m. Ages 30-39 = 107 mL/min/1.73 sq.m. Ages 40-49 = 99 mL/min/1.73 sq.m. Ages 50-59 = 93 mL/min/1.73 sq.m. Ages 60-69 = 85 mL/min/1.73 sq.m. Ages 70+ = 75 mL/min/1.73 sq.m. Chronic Kidney Disease: Less than 60 mL/min/1.73 square meters End Stage Renal Disease: Less than 15 mL/min/1.73 square meters LAB GFRNO(LOINC) ml/min/1.73sqm GFR Non- 33 Result Comment: GFR Population mean for , Non- Americans Ages 20-29 = 116 mL/min/1.73 sq.m. Ages 30-39 = 107 mL/min/1.73 sq.m. Ages 40-49 = 99 mL/min/1.73 sq.m. Ages 50-59 = 93 mL/min/1.73 sq.m. Ages 60-69 = 85 mL/min/1.73 sq.m. Ages 70+ = 75 mL/min/1.73 sq.m. Chronic Kidney Disease: Less than 60 mL/min/1.73 square meters End Stage Renal Disease: Less than 15 mL/min/1.73 square meters Performed By: #### CMP, GFR #### [address] [id number] SPE Collected: 11/19/2017 Status: F Source: [facility] 4:25 AM [facility] REPOSITORY TYPE CODE TESTS RESULT OUT OF REFERENCE UNITS RANGE LAB PROT(LOIN 6.0-8.5 G/dL C) Total Protein 5.8 Low LAB PEALB(SHIN 3.3-5.0 G/dL NC) Albumin 2.7 Low LAB PEA1(LOIN 0.1-0.4 G/dL C) Alpha 1 0.2 LAB PEA2(LOIN 0.6-1.2 G/dL C) Alpha 2 0.6 LAB PEB(LOINC 0.6-1.3 G/dL ) Beta 1.4 High LAB PEGLB(SHIN 0.7-1.6 G/dL NC) Gamma 0.9 LAB PECOM(SHIN NC) SPE The total Interpretation protein and/or albumin is/are decreased. This may occur in liver disease, malnutrition, malabsorption syndromes, selective renal loss and following removal of large effusions, hemodialysis or apheresis. Result Comment: Electronically Signed by: JEFRY HOPKINS MD 11/20/2017 13:44 EDT Performed By: #### SPE #### [place] [id number] OCC (LAB) Collected: 11/19/2017 Status: F Source: [facility] 12:00 AM [facility] REPOSITORY TYPE CODE TESTS RESULT OUT OF REFERENCE UNITS RANGE LAB OCC(LOINC) Negative Occult Negative Blood Fecal Result Comment: This test utilizes the guaiac fecal blood method, which detects peroxidase activity (heme) indicating bleeding from stomach, small intestine, or large intestine. If bleeding from either upper or lower gastrointestinal tract is a clinical consideration, the [facility] recommends the use of both the guaiac fecal blood test and the Immunochemical fecal blood test. Performed By: #### OCC #### [address] [address] UA Collected: 11/18/2017 Status: F Source: [facility] 3:44 PM [facility] REPOSITORY TYPE CODE TESTS RESULT OUT OF REFERENCE UNITS RANGE LAB SPCUA(LOIN C) UA Specimen Type Void LAB CLRUA(LOIN C) UA Color Yellow LAB APPUA(LOIN Clear C) UA Appear Clear LAB SGUA(LOINC 1.006-1.029 ) UA Spec Grav 1.015 LAB GLUA(LOINC Negative mg/dL ) UA Glucose Negative LAB BILUA(LOIN Neg-Trace C) UA Bili Negative LAB KETUA(LOIN Neg-Trace mg/dL C) UA Ketones Negative LAB BLDUA(LOIN Neg-Trace C) UA Blood Negative LAB PHUA(LOINC 5.0 - 8.0 ) UA pH 5.0 LAB PROUA(LOIN Negative mg/dL C) UA Protein Trace LAB UROUA(LOIN 0.2-1.0 E.U./dL C) UA Urobilinogen 0.2 LAB NITUA(LOIN Negative C) UA Nitrite Negative LAB LEUUA(LOIN Negative C) UA Leuk Est Negative Performed By: #### UA #### [place] [id number] US RENAL Observed: 11/18/2017 Status: F Source: [facility] 2:04 PM [facility] REPOSITORY ORIGINAL US RENAL (US RETROPERITONEUM COMPLETE) CLINICAL STATEMENT: cristiana. COMPARISON: CT abdomen and pelvis 08/02/2011 FINDINGS: The right and left kidney are normal in size, measuring 10.6 and 11.2 respectively. There are no renal stones, solid masses or pelvicalyceal dilation. The LEFT kidney demonstrates a 1.2 x 0.7 x 0.8 cm cyst. At the superior pole of the RIGHT kidney there is an area of parenchymal hyperechogenicity anteriorly. The urinary bladder is decompressed. IMPRESSION: No hydronephrosis. Parenchymal abnormality at the superior pole the RIGHT kidney may represent acute pyelonephritis or less likely, cortical scarring from previous infarct or infection. Correlation with CT of the abdomen with IV contrast is recommended. Interpreted By: Quintin Camp Preliminary Report By: Quintin Camp Electronically Signed By: Quintin Camp Dictated Date: 11/18/2017 5:03:09 PM Prelim Date: 11/18/2017 5:03:09 PM Sign Date: 11/18/2017 5:06:42 PM CBC Collected: 11/18/2017 Status: F Source: [facility] 7:26 AM [facility] REPOSITORY TYPE CODE TESTS RESULT OUT OF REFERENCE UNITS RANGE LAB WBC(LOINC) 4.50-10.80 10 3/mcL WBC 9.80 LAB RBCCT(LOINC 4.10-5.30 10 6/mcL ) Low RBC 3.58 LAB HGB(LOINC) 12.0-16.0 G/dL Low Hgb 11.3 LAB HCT(LOINC) 34.0-46.0 % Low Hct 33.7 LAB MCV(LOINC) 80.0-99.0 fL MCV 94.1 LAB MCH(LOINC) 27.0-33.0 pg MCH 31.7 LAB MCHC(LOINC) 32.0-36.0 G/dL MCHC 33.7 LAB RDW(LOINC) 11.5-15.5 % High RDW 15.7 LAB PLT(LOINC) 150-450 10 3/mcL Platelet 323 LAB MPV(LOINC) 6.6-10.5 fL MPV 7.9 Performed By: #### CBC, ADIFF, ANEU #### [address] [address] .AUTO DIFF Collected: 11/18/2017 Status: F Source: [facility] 7:26 AM [facility] REPOSITORY TYPE CODE TESTS RESULT OUT OF REFERENCE UNITS RANGE LAB EUGENIE(LOINC) 50.0-75.0 % Neutrophil % 68.6 LAB LYM(LOINC) 20.0-40.0 % Low Lymphocyte % 19.2 LAB MON(LOINC) 2.0-13.0 % Monocyte % 8.3 LAB EO(LOINC) 0.0-6.0 % Eosinophil % 2.6 LAB BAS(LOINC) 0.0-2.5 % Basophil % 1.3 LAB ABLYM(LOIN 0.90-4.32 10 3/mcL C) Lymphocyte, 1.90 Absolute LAB NICK(LOINC 0.09-1.40 10 3/mcL ) Monocyte, 0.80 Absolute LAB AEOS(LOINC 0.00-0.65 10 3/mcL ) Eosinophil, 0.30 Absolute LAB ABAS(LOINC 0.00-0.27 10 3/mcL ) Basophil, 0.10 Absolute Performed By: #### CBC, ADIFF, ANEU #### [address] [address] .NEUABS Collected: 11/18/2017 Status: F Source: [facility] 7:26 AM [facility] REPOSITORY TYPE CODE TESTS RESULT OUT OF REFERENCE UNITS RANGE LAB ANEU(LOINC) 2.25-8.10 10 3/mcL Neutrophil, 6.70 Absolute Performed By: #### CBC, ADIFF, ANEU #### [address] [id number] CMP Collected: 11/18/2017 Status: F Source: [facility] 7:26 AM [facility] REPOSITORY TYPE CODE TESTS RESULT OUT OF REFERENCE UNITS RANGE LAB GLU(LOINC) 82-115 mg/dL Glucose High Level 167 LAB NA(LOINC) 136-145 mEq/L Sodium Level 139 LAB K(LOINC) 3.5-5.0 mEq/L Potassium Level 4.6 LAB CL(LOINC) 98-110 mEq/L Chloride 104 LAB CO2(LOINC) 22-32 mEq/L CO2 22 LAB EBAL(LOINC 4.0-15.0 mEq/L ) Electrolyte Balance 13.0 LAB BUN(LOINC) 8.0-22.0 mg/dL BUN High 27.0 LAB CRE(LOINC) 0.50-1.20 mg/dL Creatinine High Lvl (s) 1.92 LAB BC(LOINC) 10.0-22.0 ratio BUN/Creatinine 14.1 Ratio LAB CA(LOINC) 8.4-10.1 mg/dL Low Calcium Lvl 8.3 LAB PROT(LOINC 6.0-8.5 G/dL ) Total Protein 6.5 LAB ALB(LOINC) 3.2-4.8 G/dL Low Albumin Level 2.7 LAB GLB(LOINC) 1.5-3.8 G/dL Globulin 3.8 LAB AG(LOINC) 0.9-1.6 ratio Low A/G Ratio 0.7 LAB BILT(LOINC 0.2-1.2 mg/dL ) Bili Total 0.2 LAB AP(LOINC) 38-126 U/L Alk Phos High 157 LAB AST(LOINC) 8-34 U/L AST/SGOT 33 LAB ALT(LOINC) 10-49 U/L ALT/SGPT 37 Performed By: #### CMP, GFR #### [address] [address] .GFR Collected: 11/18/2017 Status: F Source: [facility] 7:26 AM [facility] REPOSITORY TYPE CODE TESTS RESULT OUT OF REFERENCE UNITS RANGE LAB GFRAA(LOINC ml/min/1.73 ) sqm GFR 31 Lao Result Comment: GFR Population mean for , Non- Americans Ages 20-29 = 116 mL/min/1.73 sq.m. Ages 30-39 = 107 mL/min/1.73 sq.m. Ages 40-49 = 99 mL/min/1.73 sq.m. Ages 50-59 = 93 mL/min/1.73 sq.m. Ages 60-69 = 85 mL/min/1.73 sq.m. Ages 70+ = 75 mL/min/1.73 sq.m. Chronic Kidney Disease: Less than 60 mL/min/1.73 square meters End Stage Renal Disease: Less than 15 mL/min/1.73 square meters LAB GFRNO(LOINC) ml/min/1.73sqm GFR Non- 26 Result Comment: GFR Population mean for , Non- Americans Ages 20-29 = 116 mL/min/1.73 sq.m. Ages 30-39 = 107 mL/min/1.73 sq.m. Ages 40-49 = 99 mL/min/1.73 sq.m. Ages 50-59 = 93 mL/min/1.73 sq.m. Ages 60-69 = 85 mL/min/1.73 sq.m. Ages 70+ = 75 mL/min/1.73 sq.m. Chronic Kidney Disease: Less than 60 mL/min/1.73 square meters End Stage Renal Disease: Less than 15 mL/min/1.73 square meters Performed By: #### CMP, GFR #### [place] [address] APTT Collected: 11/18/2017 Status: F Source: [facility] 7:26 AM [facility] REPOSITORY TYPE CODE TESTS RESULT OUT OF REFERENCE UNITS RANGE LAB PDOSE(LOIN C) Heparin dose Heparin IV (APTT) LAB APTT0(LOIN 25.0-35.0 seconds C) High APTT 64.0 Result Comment: For Heparin anticoagulation therapy, the recommended therapeutic range is: 54-77 seconds (APTT Correlation with Anti-Xa therapeutic range of 0.3-0.7 units/ml). PLEASE REFERENCE THE PHARMACY PROTOCOL FOR DOSING. Performed By: #### APTT #### [address] [address] .GFR Collected: 11/17/2017 Status: F Source: [facility] 4:31 AM [facility] REPOSITORY TYPE CODE TESTS RESULT OUT OF REFERENCE UNITS RANGE LAB GFRAA(LOINC ml/min/1.73 ) sqm GFR 48 Lao Result Comment: GFR Population mean for , Non- Americans Ages 20-29 = 116 mL/min/1.73 sq.m. Ages 30-39 = 107 mL/min/1.73 sq.m. Ages 40-49 = 99 mL/min/1.73 sq.m. Ages 50-59 = 93 mL/min/1.73 sq.m. Ages 60-69 = 85 mL/min/1.73 sq.m. Ages 70+ = 75 mL/min/1.73 sq.m. Chronic Kidney Disease: Less than 60 mL/min/1.73 square meters End Stage Renal Disease: Less than 15 mL/min/1.73 square meters LAB GFRNO(LOINC) ml/min/1.73sqm GFR Non- 39 Result Comment: GFR Population mean for , Non- Americans Ages 20-29 = 116 mL/min/1.73 sq.m. Ages 30-39 = 107 mL/min/1.73 sq.m. Ages 40-49 = 99 mL/min/1.73 sq.m. Ages 50-59 = 93 mL/min/1.73 sq.m. Ages 60-69 = 85 mL/min/1.73 sq.m. Ages 70+ = 75 mL/min/1.73 sq.m. Chronic Kidney Disease: Less than 60 mL/min/1.73 square meters End Stage Renal Disease: Less than 15 mL/min/1.73 square meters Performed By: #### GFR, CMP #### [address] [address] CMP Collected: 11/17/2017 Status: F Source: [facility] 4:31 AM [facility] REPOSITORY TYPE CODE TESTS RESULT OUT OF REFERENCE UNITS RANGE LAB GLU(LOINC) 82-115 mg/dL Glucose High Level 147 LAB NA(LOINC) 136-145 mEq/L Sodium Level 141 LAB K(LOINC) 3.5-5.0 mEq/L Potassium Level 4.2 LAB CL(LOINC) 98-110 mEq/L Chloride 103 LAB CO2(LOINC) 22-32 mEq/L CO2 28 LAB EBAL(LOINC 4.0-15.0 mEq/L ) Electrolyte Balance 10.0 LAB BUN(LOINC) 8.0-22.0 mg/dL BUN 20.0 LAB CRE(LOINC) 0.50-1.20 mg/dL Creatinine High Lvl (s) 1.32 LAB BC(LOINC) 10.0-22.0 ratio BUN/Creatinine 15.2 Ratio LAB CA(LOINC) 8.4-10.1 mg/dL Calcium Lvl 8.8 LAB PROT(LOINC 6.0-8.5 G/dL ) Total Protein 6.8 LAB ALB(LOINC) 3.2-4.8 G/dL Low Albumin Level 2.7 LAB GLB(LOINC) 1.5-3.8 G/dL Globulin High 4.1 LAB AG(LOINC) 0.9-1.6 ratio Low A/G Ratio 0.7 LAB BILT(LOINC 0.2-1.2 mg/dL ) Bili Total 0.2 LAB AP(LOINC) 38-126 U/L Alk Phos High 155 LAB AST(LOINC) 8-34 U/L AST/SGOT High 35 LAB ALT(LOINC) 10-49 U/L ALT/SGPT 35 Performed By: #### GFR, CMP #### [place] [address] CBC Collected: 11/17/2017 Status: F Source: [facility] 4:31 AM [facility] REPOSITORY TYPE CODE TESTS RESULT OUT OF REFERENCE UNITS RANGE LAB WBC(LOINC) 4.50-10.80 10 3/mcL WBC 8.20 LAB RBCCT(LOINC 4.10-5.30 10 6/mcL ) Low RBC 3.49 LAB HGB(LOINC) 12.0-16.0 G/dL Low Hgb 11.1 LAB HCT(LOINC) 34.0-46.0 % Low Hct 32.5 LAB MCV(LOINC) 80.0-99.0 fL MCV 93.0 LAB MCH(LOINC) 27.0-33.0 pg MCH 31.9 LAB MCHC(LOINC) 32.0-36.0 G/dL MCHC 34.2 LAB RDW(LOINC) 11.5-15.5 % RDW 15.0 LAB PLT(LOINC) 150-450 10 3/mcL Platelet 304 LAB MPV(LOINC) 6.6-10.5 fL MPV 8.1 Performed By: #### CBC, FREDY, ANEU #### [address] [address] .AUTO DIFF Collected: 11/17/2017 Status: F Source: [facility] 4:31 AM [facility] REPOSITORY TYPE CODE TESTS RESULT OUT OF REFERENCE UNITS RANGE LAB EUGENIE(LOINC) 50.0-75.0 % Neutrophil % 68.9 LAB LYM(LOINC) 20.0-40.0 % Low Lymphocyte % 18.4 LAB MON(LOINC) 2.0-13.0 % Monocyte % 7.9 LAB EO(LOINC) 0.0-6.0 % Eosinophil % 3.6 LAB BAS(LOINC) 0.0-2.5 % Basophil % 1.2 LAB ABLYM(LOIN 0.90-4.32 10 3/mcL C) Lymphocyte, 1.50 Absolute LAB NICK(LOINC 0.09-1.40 10 3/mcL ) Monocyte, 0.60 Absolute LAB AEOS(LOINC 0.00-0.65 10 3/mcL ) Eosinophil, 0.30 Absolute LAB ABAS(LOINC 0.00-0.27 10 3/mcL ) Basophil, 0.10 Absolute Performed By: #### FREDY BAIRD, ANEU #### [address] [address] .NEUABS Collected: 11/17/2017 Status: F Source: [facility] 4:31 AM [facility] REPOSITORY TYPE CODE TESTS RESULT OUT OF REFERENCE UNITS RANGE LAB ANEU(LOINC) 2.25-8.10 10 3/mcL Neutrophil, 5.60 Absolute Performed By: #### CBC, ADIFF, ANEU #### [address] [address] APTT Collected: 11/17/2017 Status: F Source: [facility] 4:31 AM [facility] REPOSITORY TYPE CODE TESTS RESULT OUT OF REFERENCE UNITS RANGE LAB PDOSE(LOIN C) Heparin dose Heparin IV (APTT) LAB APTT0(LOIN 25.0-35.0 seconds C) High APTT 58.3 Result Comment: For Heparin anticoagulation therapy, the recommended therapeutic range is: 54-77 seconds (APTT Correlation with Anti-Xa therapeutic range of 0.3-0.7 units/ml). PLEASE REFERENCE THE PHARMACY PROTOCOL FOR DOSING. Performed By: #### APTT #### [place] [address] APTT Collected: 11/16/2017 Status: F Source: [facility] 5:00 PM [facility] REPOSITORY TYPE CODE TESTS RESULT OUT OF REFERENCE UNITS RANGE LAB PDOSE(LOIN C) Heparin dose Heparin IV (APTT) LAB APTT0(LOIN 25.0-35.0 seconds C) High APTT 49.2 Result Comment: For Heparin anticoagulation therapy, the recommended therapeutic range is: 54-77 seconds (APTT Correlation with Anti-Xa therapeutic range of 0.3-0.7 units/ml). PLEASE REFERENCE THE PHARMACY PROTOCOL FOR DOSING. Performed By: #### APTT #### [place] [address] Observed: 11/16/2017 Status: F Source: [facility] 2:01 PM [facility] REPOSITORY . MICRO - Microbiology PROCEDURE: Urine Culture [*1] SOURCE: Urine BODY SITE: COLLECTED DATE/TIME: 11/16/2017 14:01 EDT RECEIVED DATE/TIME: 11/16/2017 14:48 EDT START DATE/TIME: 11/16/2017 14:48 EDT FREE TEXT SOURCE: FINAL REPORTS Final Report [] Verified Date/Time/Personnel: 11/18/2017 07:08 EDT 5,000 organisms per mL Mixed without predominant isolate(s). Sensitivity Testing not indicated. Probably contamination. Repeat culture suggested. PRELIMINARY REPORTS Preliminary Report [] Verified Date/Time/Personnel: 11/17/2017 12:06 EDT Culture results pending. Performing Locations *1: This test was performed at: [address], [address] , [facility] Performed By: #### CUR #### [address] [address] APTT Collected: 11/16/2017 Status: F Source: [facility] 10:41 AM [facility] REPOSITORY TYPE CODE TESTS RESULT OUT OF REFERENCE UNITS RANGE LAB PDOSE(LOIN C) Heparin dose Heparin IV (APTT) LAB APTT0(LOIN 25.0-35.0 seconds C) High APTT 52.1 Result Comment: For Heparin anticoagulation therapy, the recommended therapeutic range is: 54-77 seconds (APTT Correlation with Anti-Xa therapeutic range of 0.3-0.7 units/ml). PLEASE REFERENCE THE PHARMACY PROTOCOL FOR DOSING. Performed By: #### APTT #### [address] [address] CMP Collected: 11/16/2017 Status: F Source: [facility] 3:17 AM [facility] REPOSITORY TYPE CODE TESTS RESULT OUT OF REFERENCE UNITS RANGE LAB GLU(LOINC) 82-115 mg/dL Glucose High Level 123 LAB NA(LOINC) 136-145 mEq/L Sodium Level 139 LAB K(LOINC) 3.5-5.0 mEq/L Potassium Level 4.0 LAB CL(LOINC) 98-110 mEq/L Chloride 105 LAB CO2(LOINC) 22-32 mEq/L CO2 24 LAB EBAL(LOINC 4.0-15.0 mEq/L ) Electrolyte Balance 10.0 LAB BUN(LOINC) 8.0-22.0 mg/dL BUN 16.0 LAB CRE(LOINC) 0.50-1.20 mg/dL Creatinine Lvl (s) 1.19 LAB BC(LOINC) 10.0-22.0 ratio BUN/Creatinine 13.4 Ratio LAB CA(LOINC) 8.4-10.1 mg/dL Calcium Lvl 8.5 LAB PROT(LOINC 6.0-8.5 G/dL ) Total Protein 6.4 LAB ALB(LOINC) 3.2-4.8 G/dL Low Albumin Level 2.7 LAB GLB(LOINC) 1.5-3.8 G/dL Globulin 3.7 LAB AG(LOINC) 0.9-1.6 ratio Low A/G Ratio 0.7 LAB BILT(LOINC 0.2-1.2 mg/dL ) Bili Total 0.2 LAB AP(LOINC) 38-126 U/L Alk Phos High 147 LAB AST(LOINC) 8-34 U/L AST/SGOT 22 LAB ALT(LOINC) 10-49 U/L ALT/SGPT 21 Performed By: #### CMP, GFR #### [address] [address] .GFR Collected: 11/16/2017 Status: F Source: [facility] 3:17 AM [facility] REPOSITORY TYPE CODE TESTS RESULT OUT OF REFERENCE UNITS RANGE LAB GFRAA(LOINC ml/min/1.73 ) sqm GFR 54 Lao Result Comment: GFR Population mean for , Non- Americans Ages 20-29 = 116 mL/min/1.73 sq.m. Ages 30-39 = 107 mL/min/1.73 sq.m. Ages 40-49 = 99 mL/min/1.73 sq.m. Ages 50-59 = 93 mL/min/1.73 sq.m. Ages 60-69 = 85 mL/min/1.73 sq.m. Ages 70+ = 75 mL/min/1.73 sq.m. Chronic Kidney Disease: Less than 60 mL/min/1.73 square meters End Stage Renal Disease: Less than 15 mL/min/1.73 square meters LAB GFRNO(LOINC) ml/min/1.73sqm GFR Non- 44 Result Comment: GFR Population mean for , Non- Americans Ages 20-29 = 116 mL/min/1.73 sq.m. Ages 30-39 = 107 mL/min/1.73 sq.m. Ages 40-49 = 99 mL/min/1.73 sq.m. Ages 50-59 = 93 mL/min/1.73 sq.m. Ages 60-69 = 85 mL/min/1.73 sq.m. Ages 70+ = 75 mL/min/1.73 sq.m. Chronic Kidney Disease: Less than 60 mL/min/1.73 square meters End Stage Renal Disease: Less than 15 mL/min/1.73 square meters Performed By: #### CMP, GFR #### [address] [address] CBC Collected: 11/16/2017 Status: F Source: [facility] 3:17 AM [facility] REPOSITORY TYPE CODE TESTS RESULT OUT OF REFERENCE UNITS RANGE LAB WBC(LOINC) 4.50-10.80 10 3/mcL WBC 8.00 LAB RBCCT(LOINC 4.10-5.30 10 6/mcL ) Low RBC 3.47 LAB HGB(LOINC) 12.0-16.0 G/dL Low Hgb 10.9 LAB HCT(LOINC) 34.0-46.0 % Low Hct 32.7 LAB MCV(LOINC) 80.0-99.0 fL MCV 94.2 LAB MCH(LOINC) 27.0-33.0 pg MCH 31.6 LAB MCHC(LOINC) 32.0-36.0 G/dL MCHC 33.5 LAB RDW(LOINC) 11.5-15.5 % High RDW 15.6 LAB PLT(LOINC) 150-450 10 3/mcL Platelet 287 LAB MPV(LOINC) 6.6-10.5 fL MPV 8.9 Performed By: #### CBC, ADJAMIR, ANEU #### [address] [id number] .AUTO DIFF Collected: 11/16/2017 Status: F Source: [facility] 3:17 AM [facility] REPOSITORY TYPE CODE TESTS RESULT OUT OF REFERENCE UNITS RANGE LAB EUGENIE(LOINC) 50.0-75.0 % Neutrophil % 64.5 LAB LYM(LOINC) 20.0-40.0 % Lymphocyte % 21.3 LAB MON(LOINC) 2.0-13.0 % Monocyte % 8.7 LAB EO(LOINC) 0.0-6.0 % Eosinophil % 4.2 LAB BAS(LOINC) 0.0-2.5 % Basophil % 1.3 LAB ABLYM(LOIN 0.90-4.32 10 3/mcL C) Lymphocyte, 1.70 Absolute LAB NICK(LOINC 0.09-1.40 10 3/mcL ) Monocyte, 0.70 Absolute LAB AEOS(LOINC 0.00-0.65 10 3/mcL ) Eosinophil, 0.30 Absolute LAB ABAS(LOINC 0.00-0.27 10 3/mcL ) Basophil, 0.10 Absolute Performed By: #### CBC, ADIFF, ANEU #### [address] [id number] .NEUABS Collected: 11/16/2017 Status: F Source: [facility] 3:17 AM [facility] REPOSITORY TYPE CODE TESTS RESULT OUT OF REFERENCE UNITS RANGE LAB ANEU(LOINC) 2.25-8.10 10 3/mcL Neutrophil, 5.10 Absolute Performed By: #### CBC, ADIFF, ANEU #### [place] [id number] APTT Collected: 11/16/2017 Status: F Source: [facility] 3:17 AM [facility] REPOSITORY TYPE CODE TESTS RESULT OUT OF REFERENCE UNITS RANGE LAB PDOSE(LOIN C) Heparin dose Heparin IV (APTT) LAB APTT0(LOIN 25.0-35.0 seconds C) High APTT 67.7 Result Comment: For Heparin anticoagulation therapy, the recommended therapeutic range is: 54-77 seconds (APTT Correlation with Anti-Xa therapeutic range of 0.3-0.7 units/ml). PLEASE REFERENCE THE PHARMACY PROTOCOL FOR DOSING. Performed By: #### APTT #### [place] [id number] APTT Collected: 11/15/2017 Status: F Source: [facility] 7:11 PM [facility] REPOSITORY TYPE CODE TESTS RESULT OUT OF REFERENCE UNITS RANGE LAB PDOSE(LOIN C) Heparin dose Heparin IV (APTT) LAB APTT0(LOIN 25.0-35.0 seconds C) High APTT 48.7 Result Comment: For Heparin anticoagulation therapy, the recommended therapeutic range is: 54-77 seconds (APTT Correlation with Anti-Xa therapeutic range of 0.3-0.7 units/ml). PLEASE REFERENCE THE PHARMACY PROTOCOL FOR DOSING. Performed By: #### APTT #### [place] [id number] Observed: 11/15/2017 Status: F Source: [facility] 3:24 PM [facility] REPOSITORY . MICRO - Microbiology PROCEDURE: Blood Culture (bacterial) [*1] SOURCE: Blood BODY SITE: COLLECTED DATE/TIME: 11/15/2017 15:24 EDT RECEIVED DATE/TIME: 11/15/2017 18:34 EDT START DATE/TIME: 11/15/2017 18:34 EDT FREE TEXT SOURCE: FINAL REPORTS Final Report [] Verified Date/Time/Personnel: 11/20/2017 18:59 EDT Blood Culture: No Growth at 5 days. PRELIMINARY REPORTS Preliminary Report [] Verified Date/Time/Personnel: 11/15/2017 19:59 EDT Culture has been received in lab and is no growth to date. Routine cultures are held for 5 days. Performing Locations *1: This test was performed at: [address], [address] [place] [address] Performed By: #### CBL #### [place] [id number] Observed: 11/15/2017 Status: F Source: [facility] 3:24 PM [facility] REPOSITORY . MICRO - Microbiology PROCEDURE: Blood Culture (bacterial) [*1] SOURCE: Blood BODY SITE: COLLECTED DATE/TIME: 11/15/2017 15:24 EDT RECEIVED DATE/TIME: 11/15/2017 18:34 EDT START DATE/TIME: 11/15/2017 18:34 EDT FREE TEXT SOURCE: FINAL REPORTS Final Report [] Verified Date/Time/Personnel: 11/20/2017 18:59 EDT Blood Culture: No Growth at 5 days. PRELIMINARY REPORTS Preliminary Report [] Verified Date/Time/Personnel: 11/15/2017 19:59 EDT Culture has been received in lab and is no growth to date. Routine cultures are held for 5 days. Performing Locations *1: This test was performed at: [address], [address] [place] [address] Performed By: #### CBL #### [place] [address] CT HEAD OR BRAIN W/O Observed: 11/15/2017 Status: F Source: [facility] CONTRAST 2:00 PM [facility] REPOSITORY ORIGINAL CT HEAD OR BRAIN W/O CONTRAST Clinical Statement: Please perform RADHA. on heparin drip, recent right temporal parenchymal hemorrhage. anticipated open heart surgery TECHNIQUE: Axial CT images from skull base to vertex without IV contrast. This exam was performed according to our departmental dose optimization program, and includes the following measures where appli cable: automated exposure control, adjustment of the mAs and/or kVp according to patient size and/or exam, and an iterative reconstruction algorithm. COMPARISON: 11/06/2017 FINDINGS: There is no acute intracranial hemorrhage, mass effect, or abnormal extra-axial fluid collection. No CT evidence for large acute territorial infarct. Hypodensities in the bilateral caudate hea ds are unchanged. Hypodensities in the LEFT basal ganglia and peter are also unchanged. There is a small amount of encephalomalacia in the posterior RIGHT temporal lobe at site of prior hemorrhage which is unchanged from 11/06/2017. 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 Scattered foci of white matter hypoattenuation are noted in the cerebral white matter which are nonspecific but may represent mild chronic microvascular angiopathy in a patient of this age. There is pro portionate enlargement of the ventricular system and cortical sulci, compatible with mild parenchymal volume loss. Atherosclerotic calcifications are present in the cavernous carotid arteries bilaterally. The skull base and calvarium demonstrate no acute abnormality. The included paranasal sinuses and mastoid air cells are clear. IMPRESSION: No significant change from prior examination. Interpreted By: Uma Quinn Preliminary Report By: Uma Quinn Electronically Signed By: Uma Quinn Dictated Date: 11/15/2017 3:15:26 PM Prelim Date: 11/15/2017 3:15:26 PM Sign Date: 11/15/2017 3:23:51 PM APTT Collected: 11/15/2017 Status: F Source: [facility] 12:34 PM [facility] REPOSITORY TYPE CODE TESTS RESULT OUT OF REFERENCE UNITS RANGE LAB PDOSE(LOIN C) Heparin dose Heparin IV (APTT) LAB APTT0(LOIN 25.0-35.0 seconds C) High APTT 50.9 Result Comment: For Heparin anticoagulation therapy, the recommended therapeutic range is: 54-77 seconds (APTT Correlation with Anti-Xa therapeutic range of 0.3-0.7 units/ml). PLEASE REFERENCE THE PHARMACY PROTOCOL FOR DOSING. Performed By: #### APTT #### [address] [address] OCC (LAB) Collected: 11/15/2017 Status: F Source: [facility] 10:34 AM [facility] REPOSITORY TYPE CODE TESTS RESULT OUT OF RANGE REFERENCE UNITS LAB OCC(LOINC) Negative Unknown Occult Positive Blood Fecal Result Comment: This test utilizes the guaiac fecal blood method, which detects peroxidase activity (heme) indicating bleeding from stomach, small intestine, or large intestine. If bleeding from either upper or lower gastrointestinal tract is a clinical consideration, the [facility] recommends the use of both the guaiac fecal blood test and the Immunochemical fecal blood test. Performed By: #### OCC #### [address] [address] FT4 Collected: 11/15/2017 Status: F Source: [facility] 9:28 AM [facility] REPOSITORY TYPE CODE TESTS RESULT OUT OF RANGE REFERENCE UNITS LAB FT4(LOINC) 0.60-1.70 ng/dL Free T4 0.93 Result Comment: Please note ? as of 01/21/17 new pediatric reference intervals were added for this test. Performed By: #### FT4, FT3 #### [address] [address] FT3 Collected: 11/15/2017 Status: F Source: [facility] 9:28 AM [facility] REPOSITORY TYPE CODE TESTS RESULT OUT OF RANGE REFERENCE UNITS LAB FT3(LOINC) 2.30-4.20 pg/mL Low Free T3 1.88 Result Comment: Please note ? as of 01/21/17 new pediatric reference intervals were added for this test. Performed By: #### FT4, FT3 #### [address] [address] CMP Collected: 11/15/2017 Status: F Source: [facility] 4:44 AM [facility] REPOSITORY TYPE CODE TESTS RESULT OUT OF REFERENCE UNITS RANGE LAB GLU(LOINC) 82-115 mg/dL Glucose High Level 143 LAB NA(LOINC) 136-145 mEq/L Sodium Level 140 LAB K(LOINC) 3.5-5.0 mEq/L Potassium Level 3.8 LAB CL(LOINC) 98-110 mEq/L Chloride 107 LAB CO2(LOINC) 22-32 mEq/L CO2 27 LAB EBAL(LOINC 4.0-15.0 mEq/L ) Electrolyte Balance 6.0 LAB BUN(LOINC) 8.0-22.0 mg/dL BUN 18.0 LAB CRE(LOINC) 0.50-1.20 mg/dL Creatinine Lvl (s) 1.03 LAB BC(LOINC) 10.0-22.0 ratio BUN/Creatinine 17.5 Ratio LAB CA(LOINC) 8.4-10.1 mg/dL Calcium Lvl 8.6 LAB PROT(LOINC 6.0-8.5 G/dL ) Total Protein 6.4 LAB ALB(LOINC) 3.2-4.8 G/dL Low Albumin Level 2.7 LAB GLB(LOINC) 1.5-3.8 G/dL Globulin 3.7 LAB AG(LOINC) 0.9-1.6 ratio Low A/G Ratio 0.7 LAB BILT(LOINC 0.2-1.2 mg/dL ) Bili Total 0.2 LAB AP(LOINC) 38-126 U/L Alk Phos High 146 LAB AST(LOINC) 8-34 U/L AST/SGOT 16 LAB ALT(LOINC) 10-49 U/L ALT/SGPT 21 Performed By: #### CMP, GFR #### [place] [address] .GFR Collected: 11/15/2017 Status: F Source: [facility] 4:44 AM [facility] REPOSITORY TYPE CODE TESTS RESULT OUT OF REFERENCE UNITS RANGE LAB GFRAA(LOINC ml/min/1.73 ) sqm GFR >60 Lao Result Comment: GFR Population mean for , Non- Americans Ages 20-29 = 116 mL/min/1.73 sq.m. Ages 30-39 = 107 mL/min/1.73 sq.m. Ages 40-49 = 99 mL/min/1.73 sq.m. Ages 50-59 = 93 mL/min/1.73 sq.m. Ages 60-69 = 85 mL/min/1.73 sq.m. Ages 70+ = 75 mL/min/1.73 sq.m. Chronic Kidney Disease: Less than 60 mL/min/1.73 square meters End Stage Renal Disease: Less than 15 mL/min/1.73 square meters LAB GFRNO(LOINC) ml/min/1.73sqm GFR Non- 52 Result Comment: GFR Population mean for , Non- Americans Ages 20-29 = 116 mL/min/1.73 sq.m. Ages 30-39 = 107 mL/min/1.73 sq.m. Ages 40-49 = 99 mL/min/1.73 sq.m. Ages 50-59 = 93 mL/min/1.73 sq.m. Ages 60-69 = 85 mL/min/1.73 sq.m. Ages 70+ = 75 mL/min/1.73 sq.m. Chronic Kidney Disease: Less than 60 mL/min/1.73 square meters End Stage Renal Disease: Less than 15 mL/min/1.73 square meters Performed By: #### CMP, GFR #### [address] [address] CBC Collected: 11/15/2017 Status: F Source: [facility] 4:44 AM [facility] REPOSITORY TYPE CODE TESTS RESULT OUT OF REFERENCE UNITS RANGE LAB WBC(LOINC) 4.50-10.80 10 3/mcL WBC 6.90 LAB RBCCT(LOINC 4.10-5.30 10 6/mcL ) Low RBC 3.58 LAB HGB(LOINC) 12.0-16.0 G/dL Low Hgb 11.0 LAB HCT(LOINC) 34.0-46.0 % Low Hct 33.6 LAB MCV(LOINC) 80.0-99.0 fL MCV 93.7 LAB MCH(LOINC) 27.0-33.0 pg MCH 30.8 LAB MCHC(LOINC) 32.0-36.0 G/dL MCHC 32.8 LAB RDW(LOINC) 11.5-15.5 % RDW 15.2 LAB PLT(LOINC) 150-450 10 3/mcL Platelet 294 LAB MPV(LOINC) 6.6-10.5 fL MPV 8.9 Performed By: #### CBC, ADIFF, ANEU #### [address] [id number] .AUTO DIFF Collected: 11/15/2017 Status: F Source: [facility] 4:44 AM [facility] REPOSITORY TYPE CODE TESTS RESULT OUT OF REFERENCE UNITS RANGE LAB EUGENIE(LOINC) 50.0-75.0 % Neutrophil % 64.4 LAB LYM(LOINC) 20.0-40.0 % Lymphocyte % 22.4 LAB MON(LOINC) 2.0-13.0 % Monocyte % 8.8 LAB EO(LOINC) 0.0-6.0 % Eosinophil % 3.3 LAB BAS(LOINC) 0.0-2.5 % Basophil % 1.1 LAB ABLYM(LOIN 0.90-4.32 10 3/mcL C) Lymphocyte, 1.50 Absolute LAB NICK(LOINC 0.09-1.40 10 3/mcL ) Monocyte, 0.60 Absolute LAB AEOS(LOINC 0.00-0.65 10 3/mcL ) Eosinophil, 0.20 Absolute LAB ABAS(LOINC 0.00-0.27 10 3/mcL ) Basophil, 0.10 Absolute Performed By: #### CBCFREDY, ANEU #### [place] [address] .NEUABS Collected: 11/15/2017 Status: F Source: [facility] 4:44 AM [facility] REPOSITORY TYPE CODE TESTS RESULT OUT OF REFERENCE UNITS RANGE LAB ANEU(LOINC) 2.25-8.10 10 3/mcL Neutrophil, 4.40 Absolute Performed By: #### CBCFREDY, ANEU #### [place] [address] APTT Collected: 11/15/2017 Status: F Source: [facility] 4:44 AM [facility] REPOSITORY TYPE CODE TESTS RESULT OUT OF REFERENCE UNITS RANGE LAB PDOSE(LOIN C) Heparin dose Heparin IV (APTT) LAB APTT0(LOIN 25.0-35.0 seconds C) High APTT 69.2 Result Comment: For Heparin anticoagulation therapy, the recommended therapeutic range is: 54-77 seconds (APTT Correlation with Anti-Xa therapeutic range of 0.3-0.7 units/ml). PLEASE REFERENCE THE PHARMACY PROTOCOL FOR DOSING. Performed By: #### APTT #### [place] [address] Observed: 11/14/2017 Status: F Source: [place] [employer] [facility] 11:20 AM [facility] REPOSITORY . MICRO - Microbiology PROCEDURE: Urine Culture [*1] SOURCE: Urine, Clean Catch BODY SITE: COLLECTED DATE/TIME: 11/14/2017 11:20 EDT RECEIVED DATE/TIME: 11/14/2017 12:07 EDT START DATE/TIME: 11/14/2017 12:07 EDT FREE TEXT SOURCE: FINAL REPORTS Final Report [] Verified Date/Time/Personnel: 11/16/2017 07:50 EDT >100,000 organisms per mL Klebsiella pneumoniae PRELIMINARY REPORTS Preliminary Report [] Verified Date/Time/Personnel: 11/15/2017 09:07 EDT >100,000 organisms per mL Gram Negative Rods Final identification and LOURDES to follow. SUSCEPTIBILITY RESULTS Klebsiella pneumoniae Antibiotic LOURDES Dilutn LOURDES Interp Ampicillin >16 Resistant Cefazolin <=8 Susceptible Ciprofloxacin <=1 Susceptible Gentamicin <=4 Susceptible Levofloxacin <=2 Susceptible Meropenem <=1 Susceptible Nitrofurantoin <=32 Susceptible Piperacillin/ <=16 Susceptible Tazobactam Trimethoprim/ <=2/38 Susceptible Sulfa Performing Locations *1: This test was performed at: [facility], [address] [place] [address], [address] [place] [address] Performed By: #### CUR #### [place] [address] BMP Collected: 11/14/2017 Status: F Source: [facility] 10:42 AM [facility] REPOSITORY TYPE CODE TESTS RESULT OUT OF REFERENCE UNITS RANGE LAB GLU(LOINC) 82-115 mg/dL Glucose High Level 218 LAB NA(LOINC) 136-145 mEq/L Sodium Level 136 LAB K(LOINC) 3.5-5.0 mEq/L Potassium Level 4.2 LAB CL(LOINC) 98-110 mEq/L Chloride 104 LAB CO2(LOINC) 22-32 mEq/L CO2 24 LAB EBAL(LOINC 4.0-15.0 mEq/L ) Electrolyte Balance 8.0 LAB BUN(LOINC) 8.0-22.0 mg/dL BUN 20.0 LAB CRE(LOINC) 0.50-1.20 mg/dL Creatinine Lvl (s) 1.04 LAB BC(LOINC) 10.0-22.0 ratio BUN/Creatinine 19.2 Ratio LAB CA(LOINC) 8.4-10.1 mg/dL Calcium Lvl 8.6 Performed By: #### BMP, GFR #### [place] [address] .GFR Collected: 11/14/2017 Status: F Source: [facility] 10:42 AM [facility] REPOSITORY TYPE CODE TESTS RESULT OUT OF REFERENCE UNITS RANGE LAB GFRAA(LOINC ml/min/1.73 ) sqm GFR >60 Lao Result Comment: GFR Population mean for , Non- Americans Ages 20-29 = 116 mL/min/1.73 sq.m. Ages 30-39 = 107 mL/min/1.73 sq.m. Ages 40-49 = 99 mL/min/1.73 sq.m. Ages 50-59 = 93 mL/min/1.73 sq.m. Ages 60-69 = 85 mL/min/1.73 sq.m. Ages 70+ = 75 mL/min/1.73 sq.m. Chronic Kidney Disease: Less than 60 mL/min/1.73 square meters End Stage Renal Disease: Less than 15 mL/min/1.73 square meters LAB GFRNO(LOINC) ml/min/1.73sqm GFR Non- 52 Result Comment: GFR Population mean for , Non- Americans Ages 20-29 = 116 mL/min/1.73 sq.m. Ages 30-39 = 107 mL/min/1.73 sq.m. Ages 40-49 = 99 mL/min/1.73 sq.m. Ages 50-59 = 93 mL/min/1.73 sq.m. Ages 60-69 = 85 mL/min/1.73 sq.m. Ages 70+ = 75 mL/min/1.73 sq.m. Chronic Kidney Disease: Less than 60 mL/min/1.73 square meters End Stage Renal Disease: Less than 15 mL/min/1.73 square meters Performed By: #### BMP, GFR #### [place] [address] CBC Collected: 11/14/2017 Status: F Source: [facility] 6:44 AM [facility] REPOSITORY TYPE CODE TESTS RESULT OUT OF REFERENCE UNITS RANGE LAB WBC(LOINC) 4.50-10.80 10 3/mcL WBC 8.00 LAB RBCCT(LOINC 4.10-5.30 10 6/mcL ) Low RBC 3.54 LAB HGB(LOINC) 12.0-16.0 G/dL Low Hgb 11.0 LAB HCT(LOINC) 34.0-46.0 % Low Hct 32.9 LAB MCV(LOINC) 80.0-99.0 fL MCV 93.0 LAB MCH(LOINC) 27.0-33.0 pg MCH 31.1 LAB MCHC(LOINC) 32.0-36.0 G/dL MCHC 33.5 LAB RDW(LOINC) 11.5-15.5 % RDW 15.2 LAB PLT(LOINC) 150-450 10 3/mcL Platelet 276 LAB MPV(LOINC) 6.6-10.5 fL MPV 9.3 Performed By: #### FREDY BAIRD, LEEROY #### [place] [address] .AUTO DIFF Collected: 11/14/2017 Status: F Source: [facility] 6:44 AM [facility] REPOSITORY TYPE CODE TESTS RESULT OUT OF REFERENCE UNITS RANGE LAB EUGENIE(LOINC) 50.0-75.0 % Neutrophil % 68.2 LAB LYM(LOINC) 20.0-40.0 % Low Lymphocyte % 19.1 LAB MON(LOINC) 2.0-13.0 % Monocyte % 8.6 LAB EO(LOINC) 0.0-6.0 % Eosinophil % 2.8 LAB BAS(LOINC) 0.0-2.5 % Basophil % 1.3 LAB ABLYM(LOIN 0.90-4.32 10 3/mcL C) Lymphocyte, 1.50 Absolute LAB NICK(LOINC 0.09-1.40 10 3/mcL ) Monocyte, 0.70 Absolute LAB AEOS(LOINC 0.00-0.65 10 3/mcL ) Eosinophil, 0.20 Absolute LAB ABAS(LOINC 0.00-0.27 10 3/mcL ) Basophil, 0.10 Absolute Performed By: #### FREDY BAIRD ANEU #### [place] [address] .NEUABS Collected: 11/14/2017 Status: F Source: [facility] 6:44 AM [facility] REPOSITORY TYPE CODE TESTS RESULT OUT OF REFERENCE UNITS RANGE LAB ANEU(LOINC) 2.25-8.10 10 3/mcL Neutrophil, 5.50 Absolute Performed By: #### FREDY BAIRD, ANEU #### [place] [address] APTT Collected: 11/14/2017 Status: F Source: [facility] 6:44 AM [facility] REPOSITORY TYPE CODE TESTS RESULT OUT OF REFERENCE UNITS RANGE LAB PDOSE(LOIN C) Heparin dose Heparin IV (APTT) LAB APTT0(LOIN 25.0-35.0 seconds C) High APTT 57.2 Result Comment: For Heparin anticoagulation therapy, the recommended therapeutic range is: 54-77 seconds (APTT Correlation with Anti-Xa therapeutic range of 0.3-0.7 units/ml). PLEASE REFERENCE THE PHARMACY PROTOCOL FOR DOSING. Performed By: #### APTT #### [address] [address] UA Collected: 11/14/2017 Status: F Source: [facility] 6:31 AM [facility] REPOSITORY TYPE CODE TESTS RESULT OUT OF RANGE REFERENCE UNITS LAB SPCUA(SHIN NC) UA Specimen Type Clean Catch LAB CLRUA(SHIN NC) UA Color Straw LAB APPUA(SHIN Clear NC) UA Appear Unknown Cloudy LAB SGUA(LOIN 1.006-1.029 C) UA Spec Grav 1.010 LAB GLUA(LOIN Negative mg/dL C) UA Glucose Negative LAB BILUA(SHIN Neg-Trace NC) UA Bili Negative LAB KETUA(SHIN Neg-Trace mg/dL NC) UA Ketones Negative LAB BLDUA(SHIN Neg-Trace NC) UA Blood Negative LAB PHUA(LOIN 5.0 - 8.0 C) UA pH 5.5 LAB PROUA(SHIN Negative mg/dL NC) UA Protein Negative LAB UROUA(SHIN 0.2-1.0 E.U./dL NC) UA Urobilinogen 0.2 LAB NITUA(SHIN Negative NC) UA Nitrite Unknown Positive LAB LEUUA(SHIN Negative NC) UA Leuk Est Unknown Large Performed By: #### UA, UAMIC #### [address] [address] UAMIC Collected: 11/14/2017 Status: F Source: [facility] 6:31 AM [facility] REPOSITORY TYPE CODE TESTS RESULT OUT OF RANGE REFERENCE UNITS LAB RBCUA(LOIN 0-2 /hpf C) UA RBC Negative LAB WBCUA(LOIN 0-5 /hpf C) UA WBC Unknown LOADED LAB EPIUA(LOIN 0-20 /hpf C) UA Squam Epithelial 3-5 LAB BACUA(LOIN Negative /hpf C) UA Unknown Bacteria 4+ Performed By: #### UA, UAMIC #### [address] [address] APTT Collected: 11/13/2017 Status: F Source: [facility] 10:00 [facility] REPOSITORY TYPE CODE TESTS RESULT OUT OF REFERENCE UNITS RANGE LAB PDOSE(LOIN C) Heparin dose Heparin IV (APTT) LAB APTT0(LOIN 25.0-35.0 seconds C) High APTT 56.7 Result Comment: For Heparin anticoagulation therapy, the recommended therapeutic range is: 54-77 seconds (APTT Correlation with Anti-Xa therapeutic range of 0.3-0.7 units/ml). PLEASE REFERENCE THE PHARMACY PROTOCOL FOR DOSING. Performed By: #### APTT #### [place] [address] HFP Collected: 11/13/2017 Status: F Source: [facility] 10:00 [facility] REPOSITORY TYPE CODE TESTS RESULT OUT OF REFERENCE UNITS RANGE LAB PROT(LOINC) 6.0-8.5 G/dL Total Protein 6.2 LAB ALB(LOINC) 3.2-4.8 G/dL Low Albumin Level 2.8 LAB GLB(LOINC) 1.5-3.8 G/dL Globulin 3.4 LAB AG(LOINC) 0.9-1.6 ratio Low A/G Ratio 0.8 LAB BILT(LOINC) 0.2-1.2 mg/dL Bili Total 0.3 LAB BILAD(LOINC 0.0-0.4 mg/dL ) Bili Direct 0.1 LAB BILI(LOINC) 0.1-10.0 mg/dL Bili Indirect 0.2 LAB AP(LOINC) 38-126 U/L High Alk Phos 179 LAB AST(LOINC) 8-34 U/L AST/SGOT 20 LAB ALT(LOINC) 10-49 U/L ALT/SGPT 24 Performed By: #### HFP, A1C #### [address] [address] A1C Collected: 11/13/2017 Status: F Source: [facility] 10:00 [facility] REPOSITORY TYPE CODE TESTS RESULT OUT OF RANGE REFERENCE UNITS LAB A1C(LOINC) 4.0-6.0 % High Hgb A1c 8.7 Performed By: #### HFP, A1C #### [address] [address] TSH Collected: 11/13/2017 Status: F Source: [facility] 10:00 PM [facility] REPOSITORY TYPE CODE TESTS RESULT OUT OF RANGE REFERENCE UNITS LAB TSH(LOINC) 0.360-3.740 mcIU/mL High TSH 4.030 Result Comment: Please note ? as of 01/21/17 new pediatric reference intervals were added for this test. Performed By: #### TSH, TEGCKH, TEGPM #### [place] [address] TEGCKH Collected: 11/13/2017 Status: F Source: [facility] 10:00 [facility] REPOSITORY TYPE CODE TESTS RESULT OUT OF REFERENCE UNITS RANGE LAB 15752-9 5.0-10.0 minutes CLOTTING TIME 5.4 LAB 10401-3 1.0-3.0 minutes CLOT FORMATION 1.1 LAB 69255-1 53.0-72.0 degrees CLOT High ANGLE 74.2 LAB 53688-2 50.0-70.0 mm CLOT High STRENGTH 72.1 LAB [id number](LO 0.0-8.0 % INC) LY30 Lysis TEG with NT Heparin Performed By: #### TSH, TEGCKH, TEGPM #### [place] [address] TEGPM Collected: 11/13/2017 Status: F Source: [facility] 10:00 [facility] REPOSITORY TYPE CODE TESTS RESULT OUT OF REFERENCE UNITS RANGE LAB RTEG(LOINC 5.0-10.0 minutes ) R TEG 7.5 LAB KTEG(LOINC 1.0-3.0 minutes ) K TEG 1.3 LAB ATEGH(LOIN 53.0-72.0 degrees C) Angle TEG 71.6 LAB MAMCTEG(LO 50.0-70.0 mm INC) MA Max Clot TEG 69.6 LAB [id number](LO 0.0-8.0 % INC) LY30 Lysis TEG NT LAB INIADP(SHIN % NC) Inhibition ADP 9.2 LAB 67835-2 % PLATELET AGGREGATION.ARAC 0.0 HIDONATE INDUCED Result Comment: Please read literature attached to the paper results on the growing MA. This patient has a growing MA so results should be interpreted with caution. LAB MAACT(LOINC) mm MA Activated 44.6 LAB MAADP(LOINC) mm MA (ADP) 67.3 LAB MAAA(LOINC) mm MA (AA) 70.4 Performed By: #### TSH, TEGCKH, TEGPM #### [place] [id number] BG Collected: 11/13/2017 Status: F Source: [facility] 6:56 PM [facility] REPOSITORY Order Comment: on Room Air. Preop Cardiothoracic OR (date) TYPE CODE TESTS RESULT OUT OF REFERENCE UNITS RANGE LAB PH(LOINC) 7.380-7.460 pH High 7.505 LAB PCO2(LOINC 32.0-46.0 mmHg ) Low pCO2 24.6 LAB PO2(LOINC) 74.0-108.0 mmHg pO2 High 109.6 LAB HCO3(LOINC 21.0-29.0 mmol/L ) Low HCO3 19.0 LAB TCO2(LOINC 22.0-30.0 mmol/L ) Low CO2 Totl 19.7 LAB BE(LOINC) mmol/L Base Excess -2.2 LAB O2SAT(LOIN 92.0-96.0 % C) O2 Sat High 98.5 LAB BPRES(LOIN mmHg C) Barometric 737 Pressure Performed By: #### BG #### [place] [address] APTT Collected: 11/13/2017 Status: F Source: [facility] 12:50 PM [facility] REPOSITORY TYPE CODE TESTS RESULT OUT OF REFERENCE UNITS RANGE LAB PDOSE(LOIN C) Heparin dose Heparin IV (APTT) LAB APTT0(LOIN 25.0-35.0 seconds C) High APTT 50.0 Result Comment: For Heparin anticoagulation therapy, the recommended therapeutic range is: 54-77 seconds (APTT Correlation with Anti-Xa therapeutic range of 0.3-0.7 units/ml). PLEASE REFERENCE THE PHARMACY PROTOCOL FOR DOSING. Performed By: #### APTT #### [place] [address] APTT Collected: 11/13/2017 Status: F Source: [facility] 7:08 AM [facility]POSIT[facility] TYPE CODE TESTS RESULT OUT OF REFERENCE UNITS RANGE LAB PDOSE(LOIN C) Heparin dose Heparin IV (APTT) LAB APTT0(LOIN 25.0-35.0 seconds C) High APTT 58.5 Result Comment: For Heparin anticoagulation therapy, the recommended therapeutic range is: 54-77 seconds (APTT Correlation with Anti-Xa therapeutic range of 0.3-0.7 units/ml). PLEASE REFERENCE THE PHARMACY PROTOCOL FOR DOSING. Performed By: #### APTT #### [address] [id number] MG Collected: 11/13/2017 Status: F Source: [facility] 5:03 AM [facility] REPOSITORY TYPE CODE TESTS RESULT OUT OF REFERENCE UNITS RANGE LAB MG(LOINC) 1.6-2.4 mg/dL Magnesium Lvl 1.9 Performed By: #### MG, BMP, GFR, CBC, ADIFF, ANEU, TROPI #### [address] [address] BMP Collected: 11/13/2017 Status: F Source: [facility] 5:03 AM [facility] REPOSITORY TYPE CODE TESTS RESULT OUT OF REFERENCE UNITS RANGE LAB GLU(LOINC) 82-115 mg/dL Glucose Level 100 LAB NA(LOINC) 136-145 mEq/L Sodium Level 138 LAB K(LOINC) 3.5-5.0 mEq/L Potassium Level 4.5 LAB CL(LOINC) 98-110 mEq/L Chloride 106 LAB CO2(LOINC) 22-32 mEq/L CO2 26 LAB EBAL(LOINC 4.0-15.0 mEq/L ) Electrolyte Balance 6.0 LAB BUN(LOINC) 8.0-22.0 mg/dL BUN 22.0 LAB CRE(LOINC) 0.50-1.20 mg/dL Creatinine Lvl (s) 1.14 LAB BC(LOINC) 10.0-22.0 ratio BUN/Creatinine 19.3 Ratio LAB CA(LOINC) 8.4-10.1 mg/dL Calcium Lvl 8.4 Performed By: #### MG, BMP, GFR, CBC, ADIFF, ANEU, TROPI #### [address] [address] .GFR Collected: 11/13/2017 Status: F Source: [facility] 5:03 AM [facility] REPOSITORY TYPE CODE TESTS RESULT OUT OF REFERENCE UNITS RANGE LAB GFRAA(LOINC ml/min/1.73 ) sqm GFR 56 [place] Result Comment: GFR Population mean for , Non- Americans Ages 20-29 = 116 mL/min/1.73 sq.m. Ages 30-39 = 107 mL/min/1.73 sq.m. Ages 40-49 = 99 mL/min/1.73 sq.m. Ages 50-59 = 93 mL/min/1.73 sq.m. Ages 60-69 = 85 mL/min/1.73 sq.m. Ages 70+ = 75 mL/min/1.73 sq.m. Chronic Kidney Disease: Less than 60 mL/min/1.73 square meters End Stage Renal Disease: Less than 15 mL/min/1.73 square meters LAB GFRNO(LOINC) ml/min/1.73sqm GFR Non- 47 Result Comment: GFR Population mean for , Non- Americans Ages 20-29 = 116 mL/min/1.73 sq.m. Ages 30-39 = 107 mL/min/1.73 sq.m. Ages 40-49 = 99 mL/min/1.73 sq.m. Ages 50-59 = 93 mL/min/1.73 sq.m. Ages 60-69 = 85 mL/min/1.73 sq.m. Ages 70+ = 75 mL/min/1.73 sq.m. Chronic Kidney Disease: Less than 60 mL/min/1.73 square meters End Stage Renal Disease: Less than 15 mL/min/1.73 square meters Performed By: #### MG, BMP, GFR, CBC, ADIFF, ANEU, TROPI #### [place] [id number] CBC Collected: 11/13/2017 Status: F Source: [facility] 5:03 AM [facility] REPOSITORY TYPE CODE TESTS RESULT OUT OF REFERENCE UNITS RANGE LAB WBC(LOINC) 4.50-10.80 10 3/mcL WBC 8.20 LAB RBCCT(LOINC 4.10-5.30 10 6/mcL ) Low RBC 3.31 LAB HGB(LOINC) 12.0-16.0 G/dL Low Hgb 10.5 LAB HCT(LOINC) 34.0-46.0 % Low Hct 31.6 LAB MCV(LOINC) 80.0-99.0 fL MCV 95.2 LAB MCH(LOINC) 27.0-33.0 pg MCH 31.6 LAB MCHC(LOINC) 32.0-36.0 G/dL MCHC 33.2 LAB RDW(LOINC) 11.5-15.5 % High RDW 15.6 LAB PLT(LOINC) 150-450 10 3/mcL Platelet 258 LAB MPV(LOINC) 6.6-10.5 fL MPV 8.8 Performed By: #### MG, BMP, GFR, CBC, ADIFF, ANEU, TROPI #### [address] [address] .AUTO DIFF Collected: 11/13/2017 Status: F Source: [facility] 5:03 AM [facility] REPOSITORY TYPE CODE TESTS RESULT OUT OF REFERENCE UNITS RANGE LAB EUGENIE(LOINC) 50.0-75.0 % Neutrophil % 68.7 LAB LYM(LOINC) 20.0-40.0 % Low Lymphocyte % 18.9 LAB MON(LOINC) 2.0-13.0 % Monocyte % 7.2 LAB EO(LOINC) 0.0-6.0 % Eosinophil % 4.0 LAB BAS(LOINC) 0.0-2.5 % Basophil % 1.2 LAB ABLYM(LOIN 0.90-4.32 10 3/mcL C) Lymphocyte, 1.50 Absolute LAB NICK(LOINC 0.09-1.40 10 3/mcL ) Monocyte, 0.60 Absolute LAB AEOS(LOINC 0.00-0.65 10 3/mcL ) Eosinophil, 0.30 Absolute LAB ABAS(LOINC 0.00-0.27 10 3/mcL ) Basophil, 0.10 Absolute Performed By: #### MG, BMP, GFR, CBC, ADIFF, ANEU, TROPI #### [address] [address] .NEUABS Collected: 11/13/2017 Status: F Source: [facility] 5:03 AM [facility] REPOSITORY TYPE CODE TESTS RESULT OUT OF REFERENCE UNITS RANGE LAB ANEU(LOINC) 2.25-8.10 10 3/mcL Neutrophil, 5.60 Absolute Performed By: #### MG, BMP, GFR, CBC, ADIFF, ANEU, TROPI #### [address] [address] TROPI Collected: 11/13/2017 Status: F Source: [facility] 5:03 AM [facility] REPOSITORY TYPE CODE TESTS RESULT OUT OF REFERENCE UNITS RANGE LAB TROPI(LOINC 0.000-0.040 ng/mL ) High Troponin I 0.060 Result Comment: Troponin I reference ranges (03/17/14): 0.00-0.040 ng/mL Negative and non-diagnostic. >0.040 ng/mL Consistent with cardiac damage, increased clinical risk and possibility of myocardial infarction. Serial measurements, a rise & fall in test results, clinical history, appropriate symptoms and/or ECG changes may help assess possibility of LA. *Other non-acute coronary syndrome conditions such as CHF, myocarditis, pulmonary emboli, sepsis and cardiac surgery could result in myocardial damage and increased troponin levels. Performed By: #### MG, BMP, GFR, CBC, ADIFF, ANEU, TROPI #### [address] [address] APTT Collected: 11/13/2017 Status: F Source: [facility] 1:02 AM [facility] REPOSITORY TYPE CODE TESTS RESULT OUT OF REFERENCE UNITS RANGE LAB PDOSE(LOIN C) Heparin dose Heparin IV (APTT) LAB APTT0(LOIN 25.0-35.0 seconds C) High APTT 62.7 Result Comment: For Heparin anticoagulation therapy, the recommended therapeutic range is: 54-77 seconds (APTT Correlation with Anti-Xa therapeutic range of 0.3-0.7 units/ml). PLEASE REFERENCE THE PHARMACY PROTOCOL FOR DOSING. Performed By: #### APTT #### [address] [address] APTT Collected: 11/12/2017 Status: F Source: [facility] 6:21 PM [facility] REPOSITORY TYPE CODE TESTS RESULT OUT OF REFERENCE UNITS RANGE LAB PDOSE(LOIN C) Heparin dose Heparin IV (APTT) LAB APTT0(LOIN 25.0-35.0 seconds C) High APTT 35.5 Result Comment: For Heparin anticoagulation therapy, the recommended therapeutic range is: 54-77 seconds (APTT Correlation with Anti-Xa therapeutic range of 0.3-0.7 units/ml). PLEASE REFERENCE THE PHARMACY PROTOCOL FOR DOSING. Performed By: #### APTT #### [place] [id number] CBC Collected: 11/12/2017 Status: F Source: [facility] 10:14 AM [facility] REPOSITORY TYPE CODE TESTS RESULT OUT OF REFERENCE UNITS RANGE LAB WBC(LOINC) 4.50-10.80 10 3/mcL WBC 10.60 LAB RBCCT(LOINC 4.10-5.30 10 6/mcL ) Low RBC 3.42 LAB HGB(LOINC) 12.0-16.0 G/dL Low Hgb 10.9 LAB HCT(LOINC) 34.0-46.0 % Low Hct 32.8 LAB MCV(LOINC) 80.0-99.0 fL MCV 96.0 LAB MCH(LOINC) 27.0-33.0 pg MCH 31.8 LAB MCHC(LOINC) 32.0-36.0 G/dL MCHC 33.1 LAB RDW(LOINC) 11.5-15.5 % High RDW 16.0 LAB PLT(LOINC) 150-450 10 3/mcL Platelet 238 LAB MPV(LOINC) 6.6-10.5 fL MPV 9.8 Performed By: #### CBC, ADIFF, ANEU, APTT, PRO #### [place] [address] .AUTO DIFF Collected: 11/12/2017 Status: F Source: [facility] 10:14 AM [facility] REPOSITORY TYPE CODE TESTS RESULT OUT OF REFERENCE UNITS RANGE LAB EUGENIE(LOINC) 50.0-75.0 % High Neutrophil % 81.6 LAB LYM(LOINC) 20.0-40.0 % Low Lymphocyte % 10.8 LAB MON(LOINC) 2.0-13.0 % Monocyte % 5.9 LAB EO(LOINC) 0.0-6.0 % Eosinophil % 1.1 LAB BAS(LOINC) 0.0-2.5 % Basophil % 0.6 LAB ABLYM(LOIN 0.90-4.32 10 3/mcL C) Lymphocyte, 1.20 Absolute LAB NICK(LOINC 0.09-1.40 10 3/mcL ) Monocyte, 0.60 Absolute LAB AEOS(LOINC 0.00-0.65 10 3/mcL ) Eosinophil, 0.10 Absolute LAB ABAS(LOINC 0.00-0.27 10 3/mcL ) Basophil, 0.10 Absolute Performed By: #### CBC, ADIFF, ANEU, APTT, PRO #### [place] [address] .NEUABS Collected: 11/12/2017 Status: F Source: [facility] 10:14 AM [facility] REPOSITORY TYPE CODE TESTS RESULT OUT OF REFERENCE UNITS RANGE LAB ANEU(LOINC) 2.25-8.10 10 3/mcL High Neutrophil, 8.70 Absolute Performed By: #### CBC, ADIFF, ANEU, APTT, PRO #### [place] [address] APTT Collected: 11/12/2017 Status: F Source: [facility] 10:14 AM [facility] REPOSITORY TYPE CODE TESTS RESULT OUT OF REFERENCE UNITS RANGE LAB PDOSE(LOIN C) Heparin dose None (APTT) LAB APTT0(LOIN 25.0-35.0 seconds C) APTT 30.0 Result Comment: For Heparin anticoagulation therapy, the recommended therapeutic range is: 54-77 seconds (APTT Correlation with Anti-Xa therapeutic range of 0.3-0.7 units/ml). PLEASE REFERENCE THE PHARMACY PROTOCOL FOR DOSING. Performed By: #### CBC, ADIFF, ANEU, APTT, PRO #### [place] [address] PRO Collected: 11/12/2017 Status: F Source: [facility] 10:14 AM [facility] REPOSITORY TYPE CODE TESTS RESULT OUT OF REFERENCE UNITS RANGE LAB PT(LOINC) 9.0-14.5 seconds Protime 10.9 Result Comment: Effective 01/22/08, Protime results may be affected by some antibiotics (i.e. Ciprofloxacin, Azithromycin, Bactrim) which may potentiate the action of oral anticoagulants, with further increases in Protime/INR. LAB INR(LOINC) ratio PT International Ratio 0.9 Result Comment: The [employer] (CHEST, 1992, 102:[id number]) recommended therapeutic range for oral anticoagulant therapy is: LOW RISK: Prophylaxis of venous thrombosis INR: 2.0-3.0 Treatment of pulmonary embolism 2.0-3.0 Prevention of systemic embolism 2.0-3.0 HIGH RISK: Mechanical prosthetic valves 2.5-3.5 Performed By: #### CBC, ADIFF, ANEU, APTT, PRO #### [place] [id number] BMP Collected: 11/12/2017 Status: F Source: [facility] 2:36 AM [facility] REPOSITORY TYPE CODE TESTS RESULT OUT OF REFERENCE UNITS RANGE LAB GLU(LOINC) 82-115 mg/dL Glucose High Level 150 LAB NA(LOINC) 136-145 mEq/L Sodium Level 139 LAB K(LOINC) 3.5-5.0 mEq/L Potassium Level 4.4 LAB CL(LOINC) 98-110 mEq/L Chloride 108 LAB CO2(LOINC) 22-32 mEq/L Low CO2 21 LAB EBAL(LOINC 4.0-15.0 mEq/L ) Electrolyte Balance 10.0 LAB BUN(LOINC) 8.0-22.0 mg/dL BUN 22.0 LAB CRE(LOINC) 0.50-1.20 mg/dL Creatinine High Lvl (s) 1.29 LAB BC(LOINC) 10.0-22.0 ratio BUN/Creatinine 17.1 Ratio LAB CA(LOINC) 8.4-10.1 mg/dL Calcium Lvl 8.5 Performed By: #### BMP, GFR #### [address] [address] .GFR Collected: 11/12/2017 Status: F Source: [facility] 2:36 [facility] REPOSITORY TYPE CODE TESTS RESULT OUT OF REFERENCE UNITS RANGE LAB GFRAA(LOINC ml/min/1.73 ) sqm GFR 49 Lao Result Comment: GFR Population mean for , Non- Americans Ages 20-29 = 116 mL/min/1.73 sq.m. Ages 30-39 = 107 mL/min/1.73 sq.m. Ages 40-49 = 99 mL/min/1.73 sq.m. Ages 50-59 = 93 mL/min/1.73 sq.m. Ages 60-69 = 85 mL/min/1.73 sq.m. Ages 70+ = 75 mL/min/1.73 sq.m. Chronic Kidney Disease: Less than 60 mL/min/1.73 square meters End Stage Renal Disease: Less than 15 mL/min/1.73 square meters LAB GFRNO(LOINC) ml/min/1.73sqm GFR Non- 40 Result Comment: GFR Population mean for , Non- Americans Ages 20-29 = 116 mL/min/1.73 sq.m. Ages 30-39 = 107 mL/min/1.73 sq.m. Ages 40-49 = 99 mL/min/1.73 sq.m. Ages 50-59 = 93 mL/min/1.73 sq.m. Ages 60-69 = 85 mL/min/1.73 sq.m. Ages 70+ = 75 mL/min/1.73 sq.m. Chronic Kidney Disease: Less than 60 mL/min/1.73 square meters End Stage Renal Disease: Less than 15 mL/min/1.73 square meters Performed By: #### BMP, GFR #### [place] [address] XR CHEST 1 VIEW Observed: 11/11/2017 Status: F Source: [facility] 11:05 [facility] REPOSITORY ORIGINAL Portable Chest x-ray Clinical Statement: chest pain Comparison: 08/14/2017 The lungs appear somewhat emphysematous with probable chronic coarse lung markings. No consolidation, overt congestion, pleural effusion, or pneumothorax is seen. The cardiac silhouette is unremarkable. The bones are osteopenic. IMPRESSION: No acute process. Interpreted By: Rosales Myles DO Preliminary Report By: Rosales Myles DO Electronically Signed By: Rosales Myles DO Dictated Date: 11/11/2017 11:07:46 PM Prelim Date: 11/11/2017 11:07:46 PM Sign Date: 11/11/2017 11:11:26 PM CBC Collected: 11/11/2017 Status: F Source: [facility] 11:05 [facility] REPOSITORY TYPE CODE TESTS RESULT OUT OF REFERENCE UNITS RANGE LAB WBC(LOINC) 4.60-10.80 10 3/mcL WBC 10.80 LAB RBCCT(LOINC 4.20-5.40 10 6/mcL ) Low RBC 3.72 LAB HGB(LOINC) 12.0-16.0 G/dL Low Hgb 11.7 LAB HCT(LOINC) 37.0-47.0 % Low Hct 34.7 LAB MCV(LOINC) 80.0-94.0 fL MCV 93.4 LAB MCH(LOINC) 27.0-31.2 pg High MCH 31.5 LAB MCHC(LOINC) 33.0-37.0 G/dL MCHC 33.7 LAB RDW(LOINC) 11.5-14.5 % High RDW 15.6 LAB PLT(LOINC) 130-400 10 3/mcL Platelet 313 LAB MPV(LOINC) 7.4-10.4 fL MPV 9.5 Performed By: #### CBC, ADIFF, ANEU, TROP, BMP, MG, PBNP, GFR #### [address] [address] .AUTO DIFF Collected: 11/11/2017 Status: F Source: [facility] 11:05 [facility] REPOSITORY TYPE CODE TESTS RESULT OUT OF REFERENCE UNITS RANGE LAB EUGENIE(LOINC) 37.0-80.0 % Neutrophil % 74.3 LAB LYM(LOINC) 10.0-50.0 % Lymphocyte % 16.9 LAB MON(LOINC) 1.7-13.0 % Monocyte % 7.1 LAB EO(LOINC) 0.0-7.0 % Eosinophil % 0.9 LAB BAS(LOINC) 0.0-2.5 % Basophil % 0.8 LAB ABLYM(LOIN 0.77-3.85 10 3/mcL C) Lymphocyte, 1.80 Absolute LAB NICK(LOINC 0.15-1.00 10 3/mcL ) Monocyte, 0.80 Absolute LAB AEOS(LOINC 0.00-0.40 10 3/mcL ) Eosinophil, 0.10 Absolute LAB ABAS(LOINC 0.00-0.19 10 3/mcL ) Basophil, 0.10 Absolute Performed By: #### CBC, ADIFF, ANEU, TROP, BMP, MG, PBNP, GFR #### [address] [address] .NEUABS Collected: 11/11/2017 Status: F Source: [facility] 11:05 [facility] REPOSITORY TYPE CODE TESTS RESULT OUT OF REFERENCE UNITS RANGE LAB ANEU(LOINC) 2.85-6.16 10 3/mcL High Neutrophil, 8.00 Absolute Performed By: #### CBC, ADIFF, ANEU, TROP, BMP, MG, PBNP, GFR #### [address] [address] TROP Collected: 11/11/2017 Status: F Source: [facility] 11:05 [facility] REPOSITORY TYPE CODE TESTS RESULT OUT OF REFERENCE UNITS RANGE LAB TROP(LOINC) 0.00-0.30 ng/mL Troponin <0.30 Result Comment: Below measuring range >=0.30 Consistent with cardiac damage, increased clinical risk and possibility of myocardial infarction. Serial measurements, clinical history, appropriate symptoms and/or ECG changes may help assess possibility of LA. *Other non-acute coronary syndrome conditions such as CHF, myocarditis, pulmonary emboli, sepsis and cardiac surgery could result in myocardial damage and increased troponin levels. Performed By: #### CBC, ADIFF, ANEU, TROP, BMP, MG, PBNP, GFR #### [place] [id number] [place], [place] [address] BMP Collected: 11/11/2017 Status: F Source: [facility] 11:[address] [place] [address] REPOSITORY TYPE CODE TESTS RESULT OUT OF REFERENCE UNITS RANGE LAB 1547-9 83-110 mg/dL GLUCOSE High 194 LAB NA(LOINC) 136-146 mEq/L Low Sodium Level 133 LAB K(LOINC) 3.5-5.1 mEq/L Potassium High Level 5.7 LAB CL(LOINC) 98-107 mEq/L Chloride 101 LAB CO2(LOINC) 23-31 mEq/L CO2 24 LAB EBAL(LOINC mEq/L ) Electrolyte Balance 8.0 LAB BUN(LOINC) 7.0-18.0 mg/dL BUN High 23.1 LAB CRE(LOINC) 0.6-1.2 mg/dL Creatinine High Lvl (s) 1.6 LAB BC(LOINC) 7-27 ratio BUN/Creatinine 14 Ratio LAB CA(LOINC) 8.4-10.2 mg/dL Calcium Lvl 9.1 Performed By: #### CBC, ADIFF, ANEU, TROP, BMP, MG, PBNP, GFR #### [place] [address] [place], [place] [address] MG Collected: 11/11/2017 Status: F Source: [facility] 11:05 [facility] REPOSITORY TYPE CODE TESTS RESULT OUT OF REFERENCE UNITS RANGE LAB MG(LOINC) 1.7-2.5 mg/dL Magnesium Lvl 2.0 Performed By: #### CBC, ADIFF, ANEU, TROP, BMP, MG, PBNP, GFR #### [address] [address] PBNP Collected: 11/11/2017 Status: F Source: [facility] 11:05 [facility] REPOSITORY TYPE CODE TESTS RESULT OUT OF REFERENCE UNITS RANGE LAB PBNP(LOINC) 5.0-300.0 pg/mL High N-Terminal 00[address].0 proBNP Result Comment: In the presence of acute dyspnea, CHF likely if: Age <50 years: >450 pg/mL Age 50-75 years: >900 pg/mL Age >75 years: >1800 pg/mL Performed By: #### CBC, ADIFF, ANEU, TROP, BMP, MG, PBNP, GFR #### [address] [address] .GFR Collected: 11/11/2017 Status: F Source: [facility] 11:05 [facility] REPOSITORY TYPE CODE TESTS RESULT OUT OF REFERENCE UNITS RANGE LAB GFRAA(LOINC ml/min/1.73 ) sqm GFR 38 Lao Result Comment: GFR Population mean for , Non- Americans Ages 20-29 = 116 mL/min/1.73 sq.m. Ages 30-39 = 107 mL/min/1.73 sq.m. Ages 40-49 = 99 mL/min/1.73 sq.m. Ages 50-59 = 93 mL/min/1.73 sq.m. Ages 60-69 = 85 mL/min/1.73 sq.m. Ages 70+ = 75 mL/min/1.73 sq.m. Chronic Kidney Disease: Less than 60 mL/min/1.73 square meters End Stage Renal Disease: Less than 15 mL/min/1.73 square meters LAB GFRNO(LOINC) ml/min/1.73sqm GFR Non- 32 Result Comment: GFR Population mean for , Non- Americans Ages 20-29 = 116 mL/min/1.73 sq.m. Ages 30-39 = 107 mL/min/1.73 sq.m. Ages 40-49 = 99 mL/min/1.73 sq.m. Ages 50-59 = 93 mL/min/1.73 sq.m. Ages 60-69 = 85 mL/min/1.73 sq.m. Ages 70+ = 75 mL/min/1.73 sq.m. Chronic Kidney Disease: Less than 60 mL/min/1.73 square meters End Stage Renal Disease: Less than 15 mL/min/1.73 square meters Performed By: #### CBC, ADIFF, ANEU, TROP, BMP, MG, PBNP, GFR #### [place] [id number] [place], [place] [address] CT HEAD OR BRAIN W/O Observed: 11/06/2017 Status: F Source: [facility] 9:15 AM [facility] REPOSITORY ORIGINAL Head CT, 11/06/2017 9:11 AM INDICATION: HEMORRHAGIC STROKE COMPARISON: August 2017 TECHNIQUE: Routine non-contrast head CT. This exam was performed according to our departmental dose optimization program, and includes the following measures where applicable: automated exposure control, adjustment of the mAs and/or kVp accord ing to patient size and/or exam, and an iterative reconstruction algorithm. FINDINGS: The ventricles and sulci are mildly enlarged. There is no shift of midline structures. There are no abnormal intra or extra-axial fluid collections. There is mild to moderate irregular decreas ed attenuation in the white matter of the haq radiata and centrum semiovale. Foster-white matter differentiation is maintained. The paranasal sinuses and mastoid air cells are clear. The calvaria and the bones of the base of the skull are intact. IMPRESSION: Volume loss and white matter changes; no acute findings. Interpreted By: Telly Ugarte MD Preliminary Report By: Telly Ugarte MD Electronically Signed By: Telly Ugarte MD Dictated Date: 11/06/2017 9:15:12 AM Prelim Date: 11/06/2017 9:15:12 AM Sign Date: 11/06/2017 9:16:[address] HEAD OR BRAIN W/O Observed: 08/31/2017 Status: F Source: [facility] 10:00 AM [facility] REPOSITORY ORIGINAL CT HEAD OR BRAIN W/O CONTRAST CLINICAL STATEMENT: CEREBRAL HEMORRHAGE TECHNIQUE: Axial CT images from skull base to vertex without IV contrast. This exam was performed according to our departmental dose optimization program, and includes the following measures where appli cable: automated exposure control, adjustment of the mAs and/or kVp according to patient size and/or exam, and an iterative reconstruction algorithm. COMPARISON: CT head/brain without contrast 08/14/2017 FINDINGS: There is an area of intraparenchymal hemorrhage in the right posterior temporal cortex that is slightly decreased in size from prior study measuring 9 mm from 14 mm. There is no mass or mass effect. No CT evidence for acute territorial infarct. Scattered foci of white matter hypoattenuation are noted in the cerebral white matter, nonspecific but compatible with mild chronic microvascular angiopathy. The density in the larger dural venous sinus es is grossly normal. Atherosclerotic calcifications are present in the cavernous carotid arteries bilaterally. There is proportionate enlargement of the ventricular system and cortical sulci, compatible with parenchymal volume loss. The skull base and calvarium demonstrate no abnormality. There is chronic mucosal thickening of bilateral ethmoid air cells. The included frontal, sphenoidal and mastoid air cells are clear. IMPRESSION: 1. Expected evolution of right posterior temporal intraparenchymal hemorrhage now measuring 9 mm. 2. Mild chronic microvascular angiopathy and cerebral volume loss. I have personally reviewed the images of this examination and agree with the resident's findings and interpretation. Interpreted By: Telly Ugarte MD Preliminary Report By: Benjie Pettit MD Electronically Signed By: Telly Ugarte MD Dictated Date: 08/31/2017 10:19:40 AM Prelim Date: 08/31/2017 4:30:32 PM Sign Date: 08/31/2017 4:31:08 PM CMP Collected: 08/16/2017 Status: F Source: [facility] 11:18 AM [facility] REPOSITORY TYPE CODE TESTS RESULT OUT OF REFERENCE UNITS RANGE LAB 1547-9 83-110 mg/dL Low GLUCOSE 54 LAB NA(LOINC) 136-146 mEq/L Sodium Level 138 LAB K(LOINC) 3.5-5.1 mEq/L Potassium Level 4.0 LAB CL(LOINC) 98-107 mEq/L Chloride 100 LAB CO2(LOINC) 23-31 mEq/L CO2 29 LAB EBAL(LOINC mEq/L ) Electrolyte Balance 9.0 LAB BUN(LOINC) 7.0-18.0 mg/dL BUN High 18.9 LAB CRE(LOINC) 0.6-1.2 mg/dL Creatinine High Lvl (s) 1.3 LAB BC(LOINC) 7-27 ratio BUN/Creatinine 15 Ratio LAB CA(LOINC) 8.4-10.2 mg/dL Calcium Lvl 8.4 LAB PROT(LOINC 6.0-8.3 G/dL ) Total Protein 6.3 LAB ALB(LOINC) 3.4-4.8 G/dL Low Albumin Level 3.2 LAB GLB(LOINC) G/dL Globulin 3.1 LAB AG(LOINC) 1.1-2.5 ratio Low A/G Ratio 1.0 LAB BILT(LOINC 0.2-1.0 mg/dL ) Bili Total 0.3 LAB AP(LOINC) 40-135 IU/L Alk Phos 129 LAB AST(LOINC) 10-40 IU/L AST/SGOT 15 LAB ALT(LOINC) 10-35 IU/L ALT/SGPT 11 Performed By: #### CMP, GFR #### [address] [address] .GFR Collected: 08/16/2017 Status: F Source: [facility] [employer] 11:18 AM [facility] REPOSITORY TYPE CODE TESTS RESULT OUT OF REFERENCE UNITS RANGE LAB GFRAA(LOINC ml/min/1.73 ) sqm GFR 47 Lao Result Comment: GFR Population mean for , Non- Americans Ages 20-29 = 116 mL/min/1.73 sq.m. Ages 30-39 = 107 mL/min/1.73 sq.m. Ages 40-49 = 99 mL/min/1.73 sq.m. Ages 50-59 = 93 mL/min/1.73 sq.m. Ages 60-69 = 85 mL/min/1.73 sq.m. Ages 70+ = 75 mL/min/1.73 sq.m. Chronic Kidney Disease: Less than 60 mL/min/1.73 square meters End Stage Renal Disease: Less than 15 mL/min/1.73 square meters LAB GFRNO(LOINC) ml/min/1.73sqm GFR Non- 39 Result Comment: GFR Population mean for , Non- Americans Ages 20-29 = 116 mL/min/1.73 sq.m. Ages 30-39 = 107 mL/min/1.73 sq.m. Ages 40-49 = 99 mL/min/1.73 sq.m. Ages 50-59 = 93 mL/min/1.73 sq.m. Ages 60-69 = 85 mL/min/1.73 sq.m. Ages 70+ = 75 mL/min/1.73 sq.m. Chronic Kidney Disease: Less than 60 mL/min/1.73 square meters End Stage Renal Disease: Less than 15 mL/min/1.73 square meters Performed By: #### CMP, GFR #### [place] [id number] [place], [place] [address] XR CHEST 1 VIEW Observed: 08/14/2017 Status: F Source: [facility] 7:16 AM [facility] REPOSITORY ORIGINAL Clinical history: Altered mental status. COMPARISON: Chest x-ray on 08/09/2017. Portable AP radiograph of the chest was obtained at 7:30 AM. The heart size is normal. There is mild diffuse vascular congestion that is new compared with previous exam. Small bilateral pleural effusions are present. The amount of pleural fluid on the left has de creased compared with recent chest x-ray. Right pleural fluid is not significantly changed. IMPRESSION: Mild diffuse vascular congestion. Small bilateral pleural effusions. Interpreted By: Sheng Cristina MD Preliminary Report By: Sheng Cristina MD Electronically Signed By: Sheng Cristina MD Dictated Date: 08/14/2017 7:44:00 AM Prelim Date: 08/14/2017 7:44:00 AM Sign Date: 08/14/2017 7:45:[address] HEAD OR BRAIN W/O Observed: 08/14/2017 Status: F Source: [facility] 7:16 AM [facility] REPOSITORY ORIGINAL Clinical history: Altered mental status. COMPARISON: CT angiogram of the head on 08/10/2017. Magnetic resonance imaging the brain on 08/10/2017. Axial scans were obtained through the head. Intravenous contrast was not given. This exam was performed according to our departmental dose optimization program, and includes the following measures where applicable: automated exposure control, adjustment of the mAs and/or kVp according to patient size and/or exam, and an iterative reconstruction algorithm.. There is a 14 mm diameter acute intraparenchymal hemorrhage in the right posterior temporal cortex that is stable compared to prior exam. No new intracranial hemorrhage is detected. There is moderate generalized brain atrophy. There is moderate chronic microvascular ischemic findings. Chronic lacunar infarcts in the basal ganglia bilaterally are stable. Small caudate nuclei infarct s bilaterally are also present. No mass or mass effect is present. No acute abnormality is detected in the cerebellum. IMPRESSION: Stable right posterior temporal intraparenchymal hemorrhage. Multiple small chronic lacunar infarcts and moderate chronic microvascular ischemic findings. No new intracranial abnormality. Interpreted By: Sheng Cristina MD Preliminary Report By: Sheng Cristina MD Electronically Signed By: Sheng Cristina MD Dictated Date: 08/14/2017 7:36:57 AM Prelim Date: 08/14/2017 7:36:57 AM Sign Date: 08/14/2017 7:42:08 AM CBC Collected: 08/14/2017 Status: F Source: [facility] 7:14 AM [facility] REPOSITORY TYPE CODE TESTS RESULT OUT OF REFERENCE UNITS RANGE LAB WBC(LOINC) 4.60-10.80 10 3/mcL High WBC 12.70 LAB RBCCT(LOINC 4.20-5.40 10 6/mcL ) Low RBC 3.91 LAB HGB(LOINC) 12.0-16.0 G/dL Low Hgb 11.3 LAB HCT(LOINC) 37.0-47.0 % Low Hct 35.3 LAB MCV(LOINC) 80.0-94.0 fL MCV 90.2 LAB MCH(LOINC) 27.0-31.2 pg MCH 28.9 LAB MCHC(LOINC) 33.0-37.0 G/dL Low MCHC 32.0 LAB RDW(LOINC) 11.5-14.5 % High RDW 16.1 LAB PLT(LOINC) 130-400 10 3/mcL Platelet 330 LAB MPV(LOINC) 7.4-10.4 fL MPV 8.4 Performed By: #### CBC, ADIFF, ANEU, TROP, GFR, BMP #### [address] [address] .AUTO DIFF Collected: 08/14/2017 Status: F Source: [facility] 7:14 AM [facility] REPOSITORY TYPE CODE TESTS RESULT OUT OF REFERENCE UNITS RANGE LAB EUGENIE(LOINC) 37.0-80.0 % High Neutrophil % 84.5 LAB LYM(LOINC) 10.0-50.0 % Low Lymphocyte % 7.3 LAB MON(LOINC) 1.7-13.0 % Monocyte % 6.5 LAB EO(LOINC) 0.0-7.0 % Eosinophil % 0.6 LAB BAS(LOINC) 0.0-2.5 % Basophil % 1.1 LAB ABLYM(LOIN 0.77-3.85 10 3/mcL C) Lymphocyte, 0.90 Absolute LAB NICK(LOINC 0.15-1.00 10 3/mcL ) Monocyte, 0.80 Absolute LAB AEOS(LOINC 0.00-0.40 10 3/mcL ) Eosinophil, 0.10 Absolute LAB ABAS(LOINC 0.00-0.19 10 3/mcL ) Basophil, 0.10 Absolute Performed By: #### CBC, ADIFF, ANEU, TROP, GFR, BMP #### [place] [id number] .NEUABS Collected: 08/14/2017 Status: F Source: [email or web address] 7:14 AM [place] [facility] REPOSITORY TYPE CODE TESTS RESULT OUT OF REFERENCE UNITS RANGE LAB ANEU(LOINC) 2.85-6.16 10 3/mcL High Neutrophil, 10.70 Absolute Performed By: #### CBC, ADIFF, ANEU, TROP, GFR, BMP #### [place] [address] TROP Collected: 08/14/2017 Status: F Source: [email or web address] 7:14 AM [facility] REPOSITORY TYPE CODE TESTS RESULT OUT OF REFERENCE UNITS RANGE LAB TROP(LOINC) 0.00-0.30 ng/mL Troponin <0.30 Result Comment: Below measuring range >=0.30 Consistent with cardiac damage, increased clinical risk and possibility of myocardial infarction. Serial measurements, clinical history, appropriate symptoms and/or ECG changes may help assess possibility of LA. *Other non-acute coronary syndrome conditions such as CHF, myocarditis, pulmonary emboli, sepsis and cardiac surgery could result in myocardial damage and increased troponin levels. Performed By: #### CBC, ADIFF, ANEU, TROP, GFR, BMP #### [place] [address] .GFR Collected: 08/14/2017 Status: F Source: [employer] 7:14 AM [facility] REPOSITORY TYPE CODE TESTS RESULT OUT OF REFERENCE UNITS RANGE LAB GFRAA(LOINC ml/min/1.73 ) sqm GFR 63 Lao Result Comment: GFR Population mean for , Non- Americans Ages 20-29 = 116 mL/min/1.73 sq.m. Ages 30-39 = 107 mL/min/1.73 sq.m. Ages 40-49 = 99 mL/min/1.73 sq.m. Ages 50-59 = 93 mL/min/1.73 sq.m. Ages 60-69 = 85 mL/min/1.73 sq.m. Ages 70+ = 75 mL/min/1.73 sq.m. Chronic Kidney Disease: Less than 60 mL/min/1.73 square meters End Stage Renal Disease: Less than 15 mL/min/1.73 square meters LAB GFRNO(LOINC) ml/min/1.73sqm GFR Non- 52 Result Comment: GFR Population mean for , Non- Americans Ages 20-29 = 116 mL/min/1.73 sq.m. Ages 30-39 = 107 mL/min/1.73 sq.m. Ages 40-49 = 99 mL/min/1.73 sq.m. Ages 50-59 = 93 mL/min/1.73 sq.m. Ages 60-69 = 85 mL/min/1.73 sq.m. Ages 70+ = 75 mL/min/1.73 sq.m. Chronic Kidney Disease: Less than 60 mL/min/1.73 square meters End Stage Renal Disease: Less than 15 mL/min/1.73 square meters Performed By: #### CBC, ADIFF, ANEU, TROP, GFR, BMP #### [address] [address] BMP Collected: 08/14/2017 Status: F Source: [facility] 7:14 AM [facility] REPOSITORY TYPE CODE TESTS RESULT OUT OF RANGE REFERENCE UNITS LAB 1547-9 83-110 mg/dL GLUCOSE Abnormal 43 Alert LAB NA(LOINC) 136-146 mEq/L Sodium Level 136 LAB K(LOINC) 3.5-5.1 mEq/L Potassium Level 3.7 LAB CL(LOINC) 98-107 mEq/L Chloride 100 LAB CO2(LOINC) 23-31 mEq/L CO2 31 LAB EBAL(LOINC mEq/L ) Electrolyte Balance 5.0 LAB BUN(LOINC) 7.0-18.0 mg/dL BUN 14.8 LAB CRE(LOINC) 0.6-1.2 mg/dL Creatinine Lvl (s) 1.0 LAB BC(LOINC) 7-27 ratio BUN/Creatinine 15 Ratio LAB CA(LOINC) 8.4-10.2 mg/dL Low Calcium Lvl 8.3 Performed By: #### CBC, ADIFF, ANEU, TROP, GFR, BMP #### [place] [address] [address] UA Collected: 08/14/2017 Status: F Source: [facility] 7:14 AM [facility] REPOSITORY TYPE CODE TESTS RESULT OUT OF RANGE REFERENCE UNITS LAB SPCUA(SHIN NC) UA Specimen Type Void LAB CLRUA(SHIN NC) UA Color YELLOW LAB APPUA(SHIN NC) UA Appear CLEAR LAB SGUA(LOIN C) UA Spec Abnormal Grav 1.010 LAB GLUA(LOIN Negative mg/dL C) UA Glucose Abnormal 100 LAB BILUA(SHIN NC) UA Bili NEGATIVE LAB KETUA(SHIN mg/dL NC) UA Ketones NEGATIVE LAB BLDUA(SHIN NC) UA Blood TRACE-LYSED LAB PHUA(LOIN C) UA pH 6.5 LAB PROUA(SIHN mg/dL NC) UA Protein TRACE LAB UROUA(SHIN E.U./dL NC) UA Urobilinogen 0.2 LAB NITUA(SHIN NC) UA Nitrite NEGATIVE LAB LEUUA(SHIN NC) UA Leuk Est NEGATIVE Performed By: #### UA, UAMICAO #### [place] [address] [address] .URINALYSIS MICROSCOPIC Collected: 08/14/2017 Status: F Source: [place] [facility] 7:14 AM [facility] [place] REPOSITORY TYPE CODE TESTS RESULT OUT OF REFERENCE UNITS RANGE LAB WBCUA(LOIN None Seen /hpf C) UA WBC None Seen LAB RBCUA(LOIN None Seen /hpf C) UA RBC None Seen LAB EPIUA(LOIN None Seen /hpf C) UA Squam Epithelial None Seen Performed By: #### UA, UAMICAO #### [address] [address] CBC Collected: 08/11/2017 Status: F Source: [facility] 4:59 AM [facility] REPOSITORY TYPE CODE TESTS RESULT OUT OF REFERENCE UNITS RANGE LAB WBC(LOINC) 4.50-10.80 10 3/mcL WBC 7.80 LAB RBCCT(LOINC 4.10-5.30 10 6/mcL ) Low RBC 2.82 LAB HGB(LOINC) 12.0-16.0 G/dL Low Hgb 8.8 LAB HCT(LOINC) 34.0-46.0 % Low Hct 25.6 LAB MCV(LOINC) 80.0-99.0 fL MCV 90.8 LAB MCH(LOINC) 27.0-33.0 pg MCH 31.0 LAB MCHC(LOINC) 32.0-36.0 G/dL MCHC 34.1 LAB RDW(LOINC) 11.5-15.5 % High RDW 15.9 LAB PLT(LOINC) 150-450 10 3/mcL Platelet 206 LAB MPV(LOINC) 6.6-10.5 fL MPV 7.6 Performed By: #### CBC, FREDY, ANEU #### [address] [address] .AUTO DIFF Collected: 08/11/2017 Status: F Source: [place] [employer] 4:59 AM [facility] REPOSITORY TYPE CODE TESTS RESULT OUT OF REFERENCE UNITS RANGE LAB EUGENIE(LOINC) 50.0-75.0 % High Neutrophil % 78.4 LAB LYM(LOINC) 20.0-40.0 % Low Lymphocyte % 9.3 LAB MON(LOINC) 2.0-13.0 % Monocyte % 8.0 LAB EO(LOINC) 0.0-6.0 % Eosinophil % 3.0 LAB BAS(LOINC) 0.0-2.5 % Basophil % 1.3 LAB ABLYM(LOIN 0.90-4.32 10 3/mcL C) Low Lymphocyte, 0.70 Absolute LAB NICK(LOINC 0.09-1.40 10 3/mcL ) Monocyte, 0.60 Absolute LAB AEOS(LOINC 0.00-0.65 10 3/mcL ) Eosinophil, 0.20 Absolute LAB ABAS(LOINC 0.00-0.27 10 3/mcL ) Basophil, 0.10 Absolute Performed By: #### CBC, ADJAMIR, ANEU #### [address] [address] .NEUABS Collected: 08/11/2017 Status: F Source: [facility] 4:59 AM [facility] REPOSITORY TYPE CODE TESTS RESULT OUT OF REFERENCE UNITS RANGE LAB ANEU(LOINC) 2.25-8.10 10 3/mcL Neutrophil, 6.20 Absolute Performed By: #### CBC, ADIFF, ANEU #### [place] [address] BMP Collected: 08/11/2017 Status: F Source: [facility] 4:59 AM [facility] REPOSITORY TYPE CODE TESTS RESULT OUT OF REFERENCE UNITS RANGE LAB GLU(LOINC) 82-115 mg/dL Low Glucose Level 62 LAB NA(LOINC) 136-145 mEq/L Sodium Level 141 LAB K(LOINC) 3.5-5.0 mEq/L Potassium Level 3.5 LAB CL(LOINC) 98-110 mEq/L Chloride 102 LAB CO2(LOINC) 22-32 mEq/L CO2 32 LAB EBAL(LOINC 4.0-15.0 mEq/L ) Electrolyte Balance 7.0 LAB BUN(LOINC) 8.0-22.0 mg/dL BUN 22.0 LAB CRE(LOINC) 0.50-1.20 mg/dL Creatinine High Lvl (s) 1.28 LAB BC(LOINC) 10.0-22.0 ratio BUN/Creatinine 17.2 Ratio LAB CA(LOINC) 8.4-10.1 mg/dL Low Calcium Lvl 7.7 Performed By: #### BMP, GFR #### [place] [address] .GFR Collected: 08/11/2017 Status: F Source: [facility] 4:59 AM [facility] REPOSITORY TYPE CODE TESTS RESULT OUT OF REFERENCE UNITS RANGE LAB GFRAA(LOINC ml/min/1.73 ) sqm GFR 50 Lao Result Comment: GFR Population mean for , Non- Americans Ages 20-29 = 116 mL/min/1.73 sq.m. Ages 30-39 = 107 mL/min/1.73 sq.m. Ages 40-49 = 99 mL/min/1.73 sq.m. Ages 50-59 = 93 mL/min/1.73 sq.m. Ages 60-69 = 85 mL/min/1.73 sq.m. Ages 70+ = 75 mL/min/1.73 sq.m. Chronic Kidney Disease: Less than 60 mL/min/1.73 square meters End Stage Renal Disease: Less than 15 mL/min/1.73 square meters LAB GFRNO(LOINC) ml/min/1.73sqm GFR Non- 41 Result Comment: GFR Population mean for , Non- Americans Ages 20-29 = 116 mL/min/1.73 sq.m. Ages 30-39 = 107 mL/min/1.73 sq.m. Ages 40-49 = 99 mL/min/1.73 sq.m. Ages 50-59 = 93 mL/min/1.73 sq.m. Ages 60-69 = 85 mL/min/1.73 sq.m. Ages 70+ = 75 mL/min/1.73 sq.m. Chronic Kidney Disease: Less than 60 mL/min/1.73 square meters End Stage Renal Disease: Less than 15 mL/min/1.73 square meters Performed By: #### BMP, GFR #### [place] [address] CT ANGIOGRAPHY NECK Observed: 08/10/2017 Status: F Source: [facility] W/CONTRAST 9:30 PM [facility] [place] REPOSITORY ORIGINAL CT ANGIOGRAPHY NECK W/CONTRAST CLINICAL STATEMENT: CVA perioperative stroke risk. TECHNIQUE: Nonionic intravenous contrast material was administered and axial images were obtained through the neck per standard CTA protocol. Multiplanar reformatted and shaded-surface display and three dimensional volume rendered images were generated. Where applicable, evaluation of ICA stenosis was performed using the site of greatest stenosis is compared to the diameter of the ICA distal to the st enosis at a point where the ICA alba become parallel. This exam was performed according to our departmental dose optimization program, and includes the following measures where applicable: automated ex posure control, adjustment of the mAs and/or kVp according to patient size and/or exam, and an iterative reconstruction algorithm. COMPARISON: None. FINDINGS: The imaged aortic arch is normal. The origins of the innominate, bilateral common carotid, bilateral subclavian, and bilateral vertebral arteries demonstrate no significant stenosis. There is no significant ICA stenosis. The bilateral external carotid arteries are patent. The cervical vertebral arteries are patent with the left vertebral artery dominant. The vertebral arteries join to form the basilar artery. There is no evidence of arterial dissection, occlusion, extravasation of contrast material, arteriovenous fistula, or pseudoaneurysm. Bilateral pleural effusions are layering out in the thorax with moderate size left pleural effusion and small right pleural effusion. IMPRESSION: No carotid or vertebral artery stenosis in the neck. Bilateral pleural fluid greater on the left than on the right. Interpreted By: Sheng Cristina MD Preliminary Report By: Sheng Cristina MD Electronically Signed By: Sheng Cristina MD Dictated Date: 08/11/2017 3:59:17 AM Prelim Date: 08/11/2017 3:59:17 AM Sign Date: 08/11/2017 4:02:[address] ANGIOGRAPHY HEAD W/ Observed: 08/10/2017 Status: F Source: [facility] CONTRAST 9:30 PM [facility] [place] REPOSITORY ORIGINAL CT ANGIOGRAPHY HEAD W/ CONTRAST CLINICAL STATEMENT: CVA perioperative stroke risk. TECHNIQUE: Nonionic intravenous contrast material was administered and images were obtained through the head per standard CTA protocol. Multiplanar reformatted and three dimensional volume rendered imag es were generated on an independent workstation. This exam was performed according to our departmental dose optimization program, and includes the following measures where applicable: automated exposure control, adjustment of the mAs and/or kVp according to patient size and/or exam, and an iterative reconstruction algorithm. COMPARISON: Magnetic resonance imaging of the brain on August 10, 2017. CT angiogram of the neck on August 10, 2017. FINDINGS: The petrous, cavernous, and supraclinoid segments of the internal carotid arteries are mildly atherosclerotic. No significant stenosis is present. The ophthalmic artery origins are visualized and normal. The anterior and middle cerebral arteries are normal bilaterally. The anterior communicating artery is patent. The right posterior communicating artery is normal. Left posterior cerebral artery has origin from the middle cerebral artery. A normal variant.. Both posterior cerebral arteries are normal. The vertebral arteries are patent, and the left vertebral artery is dominant.. The basilar artery and origins of the superior cerebellar arteries are normal. No saccular aneurysm, proximal arterial cutoff, intra-arterial clot, or hemodynamically significant intracranial arterial stenosis is demonstrated. While the study was optimized for arterial evaluation, the dural venous sinuses demonstrates no evidence of thrombosis. 1.4 cm faint area of increased attenuation in posterior right temporal lobe is consistent with subacute hemorrhage, and corresponds with findings on magnetic resonance imaging.. IMPRESSION: No significant intracranial arterial stenosis or arterial occlusion. 1.4 cm subacute hemorrhage in posterior right temporal lobe. Interpreted By: Sheng Cristina MD Preliminary Report By: Sheng Cristina MD Electronically Signed By: Sheng Cristina MD Dictated Date: 08/11/2017 4:04:27 AM Prelim Date: 08/11/2017 4:04:27 AM Sign Date: 08/11/2017 4:15:46 AM MRI BRAIN W/O Observed: 08/10/2017 Status: F Source: [employer] CONTRAST 4:30 PM [facility]AL [facility] BRAIN W/O CONTRAST Clinical Statement: History of stroke. Now with Afib. anticipated CABG. Perioperative stroke risk stratification. TECHNIQUE: Sagittal T1, axial FLAIR, T2 and diffusion-weighted images of the brain with ADC maps. COMPARISON: None. FINDINGS: There is a punctate focus of abnormal diffusion restriction and FLAIR hyperintensity in the right cerebellar hemisphere consistent with acute infarct. There are multiple remote lacunar infarct s in both cerebellar hemispheres as well as in the peter. Remote infarcts are visible in the basal ganglia on both sides and in the frontal lobes on both sides. There is a remote infarct involving the cortex of the right parietal lobe. There is a susceptibility artifact in the right temporal lobe most consistent with blood products measuring 1.5 cm in maximum diameter. This is T2 hypointense and heterogeneous in the T1-weighted images with T1 hyperintensity and T1 hypointensity. There is surrounding gliosis and encephalomalacia in the temporal lobe. T1 hyperintensity in the cortex in this region represents cortical laminar necrosis. There is patchy apparent diffusion restriction in this region. Patchy and confluent FLAIR hyperintensities in the cerebral white matter are nonspecific but statistically most consistent with moderate chronic microvascular angiopathy. There is moderate cerebral volu me loss, with commensurate ventricular and sulcal enlargement. The paranasal sinuses and mastoid air cells are clear. The marrow signal pattern is within normal limits. IMPRESSION: 1. Acute right cerebellar lacunar infarct. 2. Multiple remote lacunar infarcts. 3. 1.5 cm right temporal hemorrhage. This is of uncertain acuity. Lack of significant mass effect favors subacute to remote blood products. Correlation with a noncontrast head CT is recommended. 4. Diffusion restriction around the remote right temporal hemorrhage is favored to be artifactual from the cortical laminar necrosis and blood products however attention on follow-up CT in this region i s recommended to evaluate for subacute infarct. Interpreted By: Quintin Camp MD Preliminary Report By: Quintin Camp MD Electronically Signed By: Quintin Camp MD Dictated Date: 08/11/2017 12:54:57 AM Prelim Date: 08/11/2017 12:54:57 AM Sign Date: 08/11/2017 1:08:31 AM CBC Collected: 08/10/2017 Status: F Source: [facility] 4:54 AM [facility] REPOSITORY TYPE CODE TESTS RESULT OUT OF REFERENCE UNITS RANGE LAB WBC(LOINC) 4.50-10.80 10 3/mcL WBC 8.70 LAB RBCCT(LOINC 4.10-5.30 10 6/mcL ) Low RBC 2.99 LAB HGB(LOINC) 12.0-16.0 G/dL Low Hgb 9.0 LAB HCT(LOINC) 34.0-46.0 % Low Hct 27.4 LAB MCV(LOINC) 80.0-99.0 fL MCV 91.6 LAB MCH(LOINC) 27.0-33.0 pg MCH 30.2 LAB MCHC(LOINC) 32.0-36.0 G/dL MCHC 33.0 LAB RDW(LOINC) 11.5-15.5 % RDW 15.5 LAB PLT(LOINC) 150-450 10 3/mcL Platelet 206 LAB MPV(LOINC) 6.6-10.5 fL MPV 7.3 Performed By: #### CBC, LEEROY DANIEL #### [place] [address] .AUTO DIFF Collected: 08/10/2017 Status: F Source: [facility] 4:54 AM [facility] REPOSITORY TYPE CODE TESTS RESULT OUT OF REFERENCE UNITS RANGE LAB EUGENIE(LOINC) 50.0-75.0 % High Neutrophil % 79.2 LAB LYM(LOINC) 20.0-40.0 % Low Lymphocyte % 8.9 LAB MON(LOINC) 2.0-13.0 % Monocyte % 8.0 LAB EO(LOINC) 0.0-6.0 % Eosinophil % 2.7 LAB BAS(LOINC) 0.0-2.5 % Basophil % 1.2 LAB ABLYM(LOIN 0.90-4.32 10 3/mcL C) Low Lymphocyte, 0.80 Absolute LAB NICK(LOINC 0.09-1.40 10 3/mcL ) Monocyte, 0.70 Absolute LAB AEOS(LOINC 0.00-0.65 10 3/mcL ) Eosinophil, 0.20 Absolute LAB ABAS(LOINC 0.00-0.27 10 3/mcL ) Basophil, 0.10 Absolute Performed By: #### CBC, ADIFF, ANEU #### [place] [address] .NEUABS Collected: 08/10/2017 Status: F Source: [facility] 4:54 AM [facility] REPOSITORY TYPE CODE TESTS RESULT OUT OF REFERENCE UNITS RANGE LAB ANEU(LOINC) 2.25-8.10 10 3/mcL Neutrophil, 6.90 Absolute Performed By: #### CBC, ADIFF, ANEU #### [place] [address] APTT Collected: 08/10/2017 Status: F Source: [facility] 4:54 AM [facility] REPOSITORY TYPE CODE TESTS RESULT OUT OF REFERENCE UNITS RANGE LAB PDOSE(LOIN C) Heparin dose Heparin IV (APTT) LAB APTT0(LOIN 25.0-35.0 seconds C) APTT 33.4 Result Comment: For Heparin anticoagulation therapy, the recommended therapeutic range is: 54-77 seconds (APTT Correlation with Anti-Xa therapeutic range of 0.3-0.7 units/ml). PLEASE REFERENCE THE PHARMACY PROTOCOL FOR DOSING. Performed By: #### APTT #### [place] [address] XR CHEST 2 VIEWS Observed: 08/09/2017 Status: F Source: [facility] 2:30 PM [facility] REPOSITORY ORIGINAL XR CHEST 2 VIEWS Clinical Statement: hypoxia COMPARISON: 08/02/2017 FINDINGS: There is a moderate left-sided pleural effusion and trace right pleural effusion, with associated basilar airspace disease. These are slightly larger than on the prior exam. Calcifications are present in the aortic arch. No pneumothorax. The cardiac size is stable. The osseous structures are unchanged. A calcified granuloma is visible in the right lung base. IMPRESSION: Moderate left and trace right pleural effusions. Interpreted By: Quintin Camp MD Preliminary Report By: Quintin Camp MD Electronically Signed By: Quintin Camp MD Dictated Date: 08/09/2017 8:07:31 PM Prelim Date: 08/09/2017 8:07:31 PM Sign Date: 08/09/2017 8:09:09 PM APTT Collected: 08/09/2017 Status: F Source: [facility] 10:32 AM [facility] REPOSITORY TYPE CODE TESTS RESULT OUT OF REFERENCE UNITS RANGE LAB PDOSE(LOIN C) Heparin dose Heparin IV (APTT) LAB APTT0(LOIN 25.0-35.0 seconds C) High APTT 77.6 Result Comment: For Heparin anticoagulation therapy, the recommended therapeutic range is: 54-77 seconds (APTT Correlation with Anti-Xa therapeutic range of 0.3-0.7 units/ml). PLEASE REFERENCE THE PHARMACY PROTOCOL FOR DOSING. Performed By: #### APTT #### [address] [address] BMP Collected: 08/09/2017 Status: F Source: [facility] 10:32 AM [facility] REPOSITORY TYPE CODE TESTS RESULT OUT OF REFERENCE UNITS RANGE LAB GLU(LOINC) 82-115 mg/dL Glucose High Level 220 LAB NA(LOINC) 136-145 mEq/L Sodium Level 142 LAB K(LOINC) 3.5-5.0 mEq/L Potassium Level 3.8 LAB CL(LOINC) 98-110 mEq/L Chloride 103 LAB CO2(LOINC) 22-32 mEq/L CO2 32 LAB EBAL(LOINC 4.0-15.0 mEq/L ) Electrolyte Balance 7.0 LAB BUN(LOINC) 8.0-22.0 mg/dL BUN 19.0 LAB CRE(LOINC) 0.50-1.20 mg/dL Creatinine High Lvl (s) 1.34 LAB BC(LOINC) 10.0-22.0 ratio BUN/Creatinine 14.2 Ratio LAB CA(LOINC) 8.4-10.1 mg/dL Calcium Lvl 8.5 Performed By: #### BMP, GFR #### [facility] [address] [place] [id number] .GFR Collected: 08/09/2017 Status: F Source: [facility] 10:32 AM [facility] REPOSITORY TYPE CODE TESTS RESULT OUT OF REFERENCE UNITS RANGE LAB GFRAA(LOINC ml/min/1.73 ) sqm GFR 47 Lao Result Comment: GFR Population mean for , Non- Americans Ages 20-29 = 116 mL/min/1.73 sq.m. Ages 30-39 = 107 mL/min/1.73 sq.m. Ages 40-49 = 99 mL/min/1.73 sq.m. Ages 50-59 = 93 mL/min/1.73 sq.m. Ages 60-69 = 85 mL/min/1.73 sq.m. Ages 70+ = 75 mL/min/1.73 sq.m. Chronic Kidney Disease: Less than 60 mL/min/1.73 square meters End Stage Renal Disease: Less than 15 mL/min/1.73 square meters LAB GFRNO(LOINC) ml/min/1.73sqm GFR Non- 39 Result Comment: GFR Population mean for , Non- Americans Ages 20-29 = 116 mL/min/1.73 sq.m. Ages 30-39 = 107 mL/min/1.73 sq.m. Ages 40-49 = 99 mL/min/1.73 sq.m. Ages 50-59 = 93 mL/min/1.73 sq.m. Ages 60-69 = 85 mL/min/1.73 sq.m. Ages 70+ = 75 mL/min/1.73 sq.m. Chronic Kidney Disease: Less than 60 mL/min/1.73 square meters End Stage Renal Disease: Less than 15 mL/min/1.73 square meters Performed By: #### BMP, GFR #### [place] [address] CBC Collected: 08/09/2017 Status: F Source: [facility] 5:39 AM [facility] REPOSIT[facility] TYPE CODE TESTS RESULT OUT OF REFERENCE UNITS RANGE LAB WBC(LOINC) 4.50-10.80 10 3/mcL High WBC 11.40 LAB RBCCT(LOINC 4.10-5.30 10 6/mcL ) Low RBC 3.04 LAB HGB(LOINC) 12.0-16.0 G/dL Low Hgb 9.3 LAB HCT(LOINC) 34.0-46.0 % Low Hct 27.9 LAB MCV(LOINC) 80.0-99.0 fL MCV 91.9 LAB MCH(LOINC) 27.0-33.0 pg MCH 30.5 LAB MCHC(LOINC) 32.0-36.0 G/dL MCHC 33.2 LAB RDW(LOINC) 11.5-15.5 % High RDW 15.7 LAB PLT(LOINC) 150-450 10 3/mcL Platelet 216 LAB MPV(LOINC) 6.6-10.5 fL MPV 7.4 Performed By: #### CBC, ADIFF, ANEU #### [place] [address] .AUTO DIFF Collected: 08/09/2017 Status: F Source: [facility] 5:39 AM [facility] REPOSITORY TYPE CODE TESTS RESULT OUT OF REFERENCE UNITS RANGE LAB EUGENIE(LOINC) 50.0-75.0 % High Neutrophil % 82.9 LAB LYM(LOINC) 20.0-40.0 % Low Lymphocyte % 7.4 LAB MON(LOINC) 2.0-13.0 % Monocyte % 5.9 LAB EO(LOINC) 0.0-6.0 % Eosinophil % 2.8 LAB BAS(LOINC) 0.0-2.5 % Basophil % 1.0 LAB ABLYM(LOIN 0.90-4.32 10 3/mcL C) Low Lymphocyte, 0.80 Absolute LAB NICK(LOINC 0.09-1.40 10 3/mcL ) Monocyte, 0.70 Absolute LAB AEOS(LOINC 0.00-0.65 10 3/mcL ) Eosinophil, 0.30 Absolute LAB ABAS(LOINC 0.00-0.27 10 3/mcL ) Basophil, 0.10 Absolute Performed By: #### CBC, ADIFF, ANEU #### [place] [address] .NEUABS Collected: 08/09/2017 Status: F Source: [facility] 5:39 AM [facility] REPOSITORY TYPE CODE TESTS RESULT OUT OF REFERENCE UNITS RANGE LAB ANEU(LOINC) 2.25-8.10 10 3/mcL High Neutrophil, 9.40 Absolute Performed By: #### CBC, ADIFF, ANEU #### [place] [address] MG Collected: 08/01/2017 Status: F Source: [facility] 10:45 AM [facility] REPOSITORY TYPE CODE TESTS RESULT OUT OF REFERENCE UNITS RANGE LAB MG(LOINC) 1.6-2.4 mg/dL Magnesium Lvl 2.1 Performed By: #### MG, TSH #### [place] [address] TSH Collected: 08/01/2017 Status: F Source: [facility] 10:45 AM [facility] REPOSITORY TYPE CODE TESTS RESULT OUT OF RANGE REFERENCE UNITS LAB TSH(LOINC) 0.360-3.740 mcIU/mL TSH 2.800 Result Comment: Please note ? as of 01/21/17 new pediatric reference intervals were added for this test. Performed By: #### MG, TSH #### [place] [address] APTT Collected: 08/01/2017 Status: F Source: [facility] 7:27 AM [facility] REPOSITORY TYPE CODE TESTS RESULT OUT OF REFERENCE UNITS RANGE LAB PDOSE(LOIN C) Heparin dose Heparin IV (APTT) LAB APTT0(LOIN 25.0-35.0 seconds C) High APTT 40.6 Result Comment: For Heparin anticoagulation therapy, the recommended therapeutic range is: 54-77 seconds (APTT Correlation with Anti-Xa therapeutic range of 0.3-0.7 units/ml). PLEASE REFERENCE THE PHARMACY PROTOCOL FOR DOSING. Performed By: #### APTT #### [address] [id number] CBC Collected: 08/01/2017 Status: F Source: [facility] 3:28 AM [facility] REPOSITORY TYPE CODE TESTS RESULT OUT OF REFERENCE UNITS RANGE LAB WBC(LOINC) 4.50-10.80 10 3/mcL High WBC 18.30 LAB RBCCT(LOINC 4.10-5.30 10 6/mcL ) Low RBC 3.62 LAB HGB(LOINC) 12.0-16.0 G/dL Low Hgb 11.0 LAB HCT(LOINC) 34.0-46.0 % Low Hct 32.1 LAB MCV(LOINC) 80.0-99.0 fL MCV 88.6 LAB MCH(LOINC) 27.0-33.0 pg MCH 30.5 LAB MCHC(LOINC) 32.0-36.0 G/dL MCHC 34.4 LAB RDW(LOINC) 11.5-15.5 % RDW 15.2 LAB PLT(LOINC) 150-450 10 3/mcL Platelet 320 LAB MPV(LOINC) 6.6-10.5 fL MPV 7.7 Performed By: #### CBC, ADIFF, ANEU, BMP, GFR #### [place] [address] .AUTO DIFF Collected: 08/01/2017 Status: F Source: [facility] 3:28 AM [facility] REPOSITORY TYPE CODE TESTS RESULT OUT OF REFERENCE UNITS RANGE LAB EUGENIE(LOINC) 50.0-75.0 % High Neutrophil % 93.4 LAB LYM(LOINC) 20.0-40.0 % Low Lymphocyte % 2.1 LAB MON(LOINC) 2.0-13.0 % Monocyte % 4.3 LAB EO(LOINC) 0.0-6.0 % Eosinophil % 0.1 LAB BAS(LOINC) 0.0-2.5 % Basophil % 0.1 LAB ABLYM(LOIN 0.90-4.32 10 3/mcL C) Low Lymphocyte, 0.40 Absolute LAB NICK(LOINC 0.09-1.40 10 3/mcL ) Monocyte, 0.80 Absolute LAB AEOS(LOINC 0.00-0.65 10 3/mcL ) Eosinophil, 0.00 Absolute LAB ABAS(LOINC 0.00-0.27 10 3/mcL ) Basophil, 0.00 Absolute Performed By: #### CBC, ADIFF, ANEU, BMP, GFR #### [place] [address] .NEUABS Collected: 08/01/2017 Status: F Source: [facility] 3:28 AM [facility] REPOSITORY TYPE CODE TESTS RESULT OUT OF REFERENCE UNITS RANGE LAB ANEU(LOINC) 2.25-8.10 10 3/mcL High Neutrophil, 17.10 Absolute Performed By: #### CBC, ADIFF, ANEU, BMP, GFR #### [place] [address] BMP Collected: 08/01/2017 Status: F Source: [facility] 3:28 AM [facility] REPOSITORY TYPE CODE TESTS RESULT OUT OF REFERENCE UNITS RANGE LAB GLU(LOINC) 82-115 mg/dL Glucose High Level 142 LAB NA(LOINC) 136-145 mEq/L Sodium Level 138 LAB K(LOINC) 3.5-5.0 mEq/L Potassium Level 3.9 LAB CL(LOINC) 98-110 mEq/L Chloride 108 LAB CO2(LOINC) 22-32 mEq/L Low CO2 15 LAB EBAL(LOINC 4.0-15.0 mEq/L ) Electrolyte Balance 15.0 LAB BUN(LOINC) 8.0-22.0 mg/dL BUN High 94.0 LAB CRE(LOINC) 0.50-1.20 mg/dL Creatinine High Lvl (s) 5.30 LAB BC(LOINC) 10.0-22.0 ratio BUN/Creatinine 17.7 Ratio LAB CA(LOINC) 8.4-10.1 mg/dL Low Calcium Lvl 7.1 Performed By: #### CBC, ADIFF, ANEU, BMP, GFR #### [place] [address] .GFR Collected: 08/01/2017 Status: F Source: [facility] 3:28 AM [facility] REPOSITORY TYPE CODE TESTS RESULT OUT OF REFERENCE UNITS RANGE LAB GFRAA(LOINC ml/min/1.73 ) sqm GFR 10 [place] Result Comment: GFR Population mean for , Non- Americans Ages 20-29 = 116 mL/min/1.73 sq.m. Ages 30-39 = 107 mL/min/1.73 sq.m. Ages 40-49 = 99 mL/min/1.73 sq.m. Ages 50-59 = 93 mL/min/1.73 sq.m. Ages 60-69 = 85 mL/min/1.73 sq.m. Ages 70+ = 75 mL/min/1.73 sq.m. Chronic Kidney Disease: Less than 60 mL/min/1.73 square meters End Stage Renal Disease: Less than 15 mL/min/1.73 square meters LAB GFRNO(LOINC) ml/min/1.73sqm GFR Non- 8 Result Comment: GFR Population mean for , Non- Americans Ages 20-29 = 116 mL/min/1.73 sq.m. Ages 30-39 = 107 mL/min/1.73 sq.m. Ages 40-49 = 99 mL/min/1.73 sq.m. Ages 50-59 = 93 mL/min/1.73 sq.m. Ages 60-69 = 85 mL/min/1.73 sq.m. Ages 70+ = 75 mL/min/1.73 sq.m. Chronic Kidney Disease: Less than 60 mL/min/1.73 square meters End Stage Renal Disease: Less than 15 mL/min/1.73 square meters Performed By: #### CBC, ADIFF, ANEU, BMP, GFR #### [address] [address] APTT Collected: 08/01/2017 Status: F Source: [facility] 12:44 AM [facility] REPOSITORY TYPE CODE TESTS RESULT OUT OF REFERENCE UNITS RANGE LAB PDOSE(LOIN C) Heparin dose Heparin IV (APTT) LAB APTT0(LOIN 25.0-35.0 seconds C) High APTT 36.4 Result Comment: For Heparin anticoagulation therapy, the recommended therapeutic range is: 54-77 seconds (APTT Correlation with Anti-Xa therapeutic range of 0.3-0.7 units/ml). PLEASE REFERENCE THE PHARMACY PROTOCOL FOR DOSING. Performed By: #### APTT #### [address] [id number] CBC Collected: 07/31/2017 Status: F Source: [facility] 7:13 PM [facility] REPOSITORY TYPE CODE TESTS RESULT OUT OF REFERENCE UNITS RANGE LAB WBC(LOINC) 4.50-10.80 10 3/mcL High WBC 18.00 LAB RBCCT(LOINC 4.10-5.30 10 6/mcL ) Low RBC 3.77 LAB HGB(LOINC) 12.0-16.0 G/dL Low Hgb 11.4 LAB HCT(LOINC) 34.0-46.0 % Hct 34.1 LAB MCV(LOINC) 80.0-99.0 fL MCV 90.4 LAB MCH(LOINC) 27.0-33.0 pg MCH 30.2 LAB MCHC(LOINC) 32.0-36.0 G/dL MCHC 33.4 LAB RDW(LOINC) 11.5-15.5 % RDW 15.1 LAB PLT(LOINC) 150-450 10 3/mcL Platelet 361 LAB MPV(LOINC) 6.6-10.5 fL MPV 7.4 Performed By: #### CBC, ADIFF, ANEU, APTT, PRO #### [address] [address] .AUTO DIFF Collected: 07/31/2017 Status: F Source: [facility] 7:13 PM [facility] REPOSITORY TYPE CODE TESTS RESULT OUT OF REFERENCE UNITS RANGE LAB EUGENIE(LOINC) 50.0-75.0 % High Neutrophil % 95.0 LAB LYM(LOINC) 20.0-40.0 % Low Lymphocyte % 1.5 LAB MON(LOINC) 2.0-13.0 % Monocyte % 3.1 LAB EO(LOINC) 0.0-6.0 % Eosinophil % 0.2 LAB BAS(LOINC) 0.0-2.5 % Basophil % 0.2 LAB ABLYM(LOIN 0.90-4.32 10 3/mcL C) Low Lymphocyte, 0.30 Absolute LAB NICK(LOINC 0.09-1.40 10 3/mcL ) Monocyte, 0.60 Absolute LAB AEOS(LOINC 0.00-0.65 10 3/mcL ) Eosinophil, 0.00 Absolute LAB ABAS(LOINC 0.00-0.27 10 3/mcL ) Basophil, 0.00 Absolute Performed By: #### CBC, ADIFF, ANEU, APTT, PRO #### [place] [address] .NEUABS Collected: 07/31/2017 Status: F Source: [facility] 7:13 [facility] REPOSITORY TYPE CODE TESTS RESULT OUT OF REFERENCE UNITS RANGE LAB ANEU(LOINC) 2.25-8.10 10 3/mcL High Neutrophil, 17.10 Absolute Performed By: #### CBC, ADIFF, ANEU, APTT, PRO #### [place] [address] APTT Collected: 07/31/2017 Status: F Source: [facility] 7:13 PM [facility] REPOSITORY TYPE CODE TESTS RESULT OUT OF RANGE REFERENCE UNITS LAB PDOSE(LOIN C) Heparin dose Heparin IV (APTT) LAB APTT0(LOIN 25.0-35.0 seconds C) Abnormal APTT >200.0 Alert Result Comment: For Heparin anticoagulation therapy, the recommended therapeutic range is: 54-77 seconds (APTT Correlation with Anti-Xa therapeutic range of 0.3-0.7 units/ml). PLEASE REFERENCE THE PHARMACY PROTOCOL FOR DOSING. Performed By: #### CBC, ADIFF, ANEU, APTT, PRO #### [place] [address] PRO Collected: 07/31/2017 Status: F Source: [facility] 7:13 PM [facility] REPOSITORY TYPE CODE TESTS RESULT OUT OF REFERENCE UNITS RANGE LAB PT(LOINC) 9.0-14.5 seconds Protime 13.0 Result Comment: Effective 01/22/08, Protime results may be affected by some antibiotics (i.e. Ciprofloxacin, Azithromycin, Bactrim) which may potentiate the action of oral anticoagulants, with further increases in Protime/INR. LAB INR(LOINC) ratio PT International Ratio 1.1 Result Comment: The [place] [employer] (CHEST, 1992, [id number]) recommended therapeutic range for oral anticoagulant therapy is: LOW RISK: Prophylaxis of venous thrombosis INR: 2.0-3.0 Treatment of pulmonary embolism 2.0-3.0 Prevention of systemic embolism 2.0-3.0 HIGH RISK: Mechanical prosthetic valves 2.5-3.5 Performed By: #### CBC, ADIFF, ANEU, APTT, PRO #### [place] [address] Observed: 07/31/2017 Status: F Source: [facility] CUR 1:09 PM [facility] REPOSITORY . MICRO - Microbiology PROCEDURE: Urine Culture [*1] SOURCE: Urine, Clean Catch BODY SITE: COLLECTED DATE/TIME: 07/31/2017 13:09 EST RECEIVED DATE/TIME: 07/31/2017 14:02 EST START DATE/TIME: 07/31/2017 14:02 EST FREE TEXT SOURCE: FINAL REPORTS Final Report [] Verified Date/Time/Personnel: 08/01/2017 11:51 EST >100,000 organisms per mL Mixed without predominant isolate(s). Sensitivity Testing not indicated. Probably contamination. Repeat culture suggested. Performing Locations *1: This test was performed at: [facility], [address] [place] [address], [facility]- , [facility] Performed By: #### CUR #### [place] [address] UA Collected: 07/31/2017 Status: F Source: [facility] 11:25 AM [facility] REPOSITORY TYPE CODE TESTS RESULT OUT OF RANGE REFERENCE UNITS LAB SPCUA(SHIN NC) UA Specimen Type Clean Catch LAB CLRUA(SHIN NC) UA Color Yellow LAB APPUA(SHIN Clear NC) UA Appear Abnormal Turbid LAB SGUA(LOIN 1.006-1.029 C) UA Spec Grav 1.010 LAB GLUA(LOIN Negative mg/dL C) UA Glucose Abnormal 500 LAB BILUA(SHIN Neg-Trace NC) UA Bili Negative LAB KETUA(SHIN Neg-Trace mg/dL NC) UA Ketones Negative LAB BLDUA(SHIN Neg-Trace NC) UA Blood Abnormal Large LAB PHUA(LOIN 5.0 - 8.0 C) UA pH 5.0 LAB PROUA(SHIN Negative mg/dL NC) UA Protein Trace LAB UROUA(SHIN 0.2-1.0 E.U./dL NC) UA Urobilinogen 0.2 LAB NITUA(SHIN Negative NC) UA Nitrite Abnormal Positive LAB LEUUA(SHIN Negative NC) UA Leuk Est Abnormal Large Performed By: #### UA, UAMIC, CRUR, PRUR, NAUR #### [place] [address] UAMIC Collected: 07/31/2017 Status: F Source: [facility] 11:25 AM [facility] REPOSITORY TYPE CODE TESTS RESULT OUT OF RANGE REFERENCE UNITS LAB RBCUA(LOIN 0-2 /hpf C) UA RBC 0-2 LAB WBCUA(LOIN 0-5 /hpf C) UA WBC Abnormal 50-100 LAB EPIUA(LOIN 0-20 /hpf C) UA Squam Epithelial 0-2 LAB BACUA(LOIN Negative /hpf C) UA Abnormal Bacteria 3+ Performed By: #### UA, UAMIC, CRUR, PRUR, NAUR #### [place] [address] CRUR Collected: 07/31/2017 Status: F Source: [facility] 11:25 AM [facility] REPOSITORY TYPE CODE TESTS RESULT OUT OF REFERENCE UNITS RANGE LAB CRU(LOINC) mg/dL U Creatinine 27.2 Performed By: #### UA, UAMIC, CRUR, PRUR, NAUR #### [place] [address] PRUR Collected: 07/31/2017 Status: F Source: [facility] 11:25 AM [facility] REPOSITORY TYPE CODE TESTS RESULT OUT OF REFERENCE UNITS RANGE LAB PRU(LOINC) mg/dL U Protein 32.3 Performed By: #### UA, UAMIC, CRUR, PRUR, NAUR #### [place] [address] NAUR Collected: 07/31/2017 Status: F Source: [facility] 11:25 AM [facility] REPOSITORY TYPE CODE TESTS RESULT OUT OF REFERENCE UNITS RANGE LAB KARL(LOINC) mEq/L U Sodium 63.0 Performed By: #### UA, UAMIC, CRUR, PRUR, NAUR #### [place] [address] EOS Collected: 07/31/2017 Status: F Source: [facility] 11:25 AM [facility] REPOSITORY TYPE CODE TESTS RESULT OUT OF REFERENCE UNITS RANGE LAB EOSRC(LOIN C) Eosinophil Spec Urine Type LAB EOSMR(LOIN C) Eos Smear 1-5 Result Comment: The units for an eosinophil smear depend upon specimen type: Stool, sputum, nasal specimens: number of cells/hp field Urine, bronchial lavage: number of cells/100 cells (%) Performed By: #### EOS #### [place] [address] CAION Collected: 07/31/2017 Status: F Source: [facility] 10:16 AM [facility] REPOSITORY TYPE CODE TESTS RESULT OUT OF REFERENCE UNITS RANGE LAB CAION(LOINC 1.12-1.32 mmol/L ) Low Calcium 0.91 Ionized Performed By: #### CAION, PTH, ALB, PHOS, FERR, URIC, FES, IFES #### [place] [address] PTH Collected: 07/31/2017 Status: F Source: [facility] 10:16 AM [facility] REPOSITORY TYPE CODE TESTS RESULT OUT OF REFERENCE UNITS RANGE LAB PTH(LOINC) 10-69 pg/mL High PTH, Intact 390 Performed By: #### CAION, PTH, ALB, PHOS, FERR, URIC, FES, IFES #### [place] [address] ALB Collected: 07/31/2017 Status: F Source: [facility] 10:16 AM [facility] REPOSITORY TYPE CODE TESTS RESULT OUT OF REFERENCE UNITS RANGE LAB ALB(LOINC) 3.2-4.8 G/dL Low Albumin Level 2.4 Performed By: #### CAION, PTH, ALB, PHOS, FERR, URIC, FES, IFES #### [place] [address] PHOS Collected: 07/31/2017 Status: F Source: [facility] 10:16 AM [facility] REPOSITORY TYPE CODE TESTS RESULT OUT OF REFERENCE UNITS RANGE LAB PHOS(LOINC 2.5-4.5 mg/dL ) High Phosphorus 7.0 Performed By: #### CAION, PTH, ALB, PHOS, FERR, URIC, FES, IFES #### [place] [address] FERR Collected: 07/31/2017 Status: F Source: [facility] 10:16 AM [facility] REPOSITORY TYPE CODE TESTS RESULT OUT OF REFERENCE UNITS RANGE LAB FERR(LOINC) 8-252 ng/mL Ferritin 160 Performed By: #### CAION, PTH, ALB, PHOS, FERR, URIC, FES, IFES #### [place] [address] URIC Collected: 07/31/2017 Status: F Source: [facility] 10:16 AM [facility] REPOSITORY TYPE CODE TESTS RESULT OUT OF RANGE REFERENCE UNITS LAB URIC(LOINC) 2.3-6.6 mg/dL High Uric Acid 9.0 Lvl Performed By: #### CAION, PTH, ALB, PHOS, FERR, URIC, FES, IFES #### [place] [address] FES Collected: 07/31/2017 Status: F Source: [facility] 10:16 AM [facility] REPOSITORY TYPE CODE TESTS RESULT OUT OF RANGE REFERENCE UNITS LAB FE(LOINC) 37-170 mcg/dL Iron 54 LAB IBC(LOINC) 250-500 mcg/dL Low TIBC 226 LAB FESAT(LOINC % ) Iron Sat 24 Performed By: #### CAION, PTH, ALB, PHOS, FERR, URIC, FES, IFES #### [place] [address] IFES Collected: 07/31/2017 Status: F Source: [facility] 10:16 AM [facility] REPOSITORY TYPE CODE TESTS RESULT OUT OF REFERENCE UNITS RANGE LAB IFES(SHIN NC) IFES Immunofixation Interpretation electrophoresis of serum shows the presence of only polyclonal immunoglobulins (IgG,A,M,[place] and Lambda), No monoclonal protein detected. Result Comment: Electronically Signed by: JEFRY HOPKINS MD 08/01/2017 09:03 EST Performed By: #### CAION, PTH, ALB, PHOS, FERR, URIC, FES, IFES #### [place] [address] CRUR Collected: 07/31/2017 Status: F Source: [facility] 8:14 AM [facility] REPOSITORY TYPE CODE TESTS RESULT OUT OF REFERENCE UNITS RANGE LAB CRU(LOINC) mg/dL U Creatinine 42.0 Performed By: #### CRMOE, NAUR #### [place] [address] NAUR Collected: 07/31/2017 Status: F Source: [facility] 8:14 AM [facility] REPOSITORY TYPE CODE TESTS RESULT OUT OF REFERENCE UNITS RANGE LAB KARL(LOINC) mEq/L U Sodium 51.0 Performed By: #### CRMOE, NAUR #### [place] [address] TROPI Collected: 07/31/2017 Status: F Source: [facility] 8:09 AM [facility] REPOSITORY TYPE CODE TESTS RESULT OUT OF REFERENCE UNITS RANGE LAB TROPI(LOINC 0.000-0.040 ng/mL ) High Troponin I 0.097 Result Comment: Troponin I reference ranges (03/17/14): 0.00-0.040 ng/mL Negative and non-diagnostic. >0.040 ng/mL Consistent with cardiac damage, increased clinical risk and possibility of myocardial infarction. Serial measurements, a rise & fall in test results, clinical history, appropriate symptoms and/or ECG changes may help assess possibility of LA. *Other non-acute coronary syndrome conditions such as CHF, myocarditis, pulmonary emboli, sepsis and cardiac surgery could result in myocardial damage and increased troponin levels. Performed By: #### TROPI #### [place] [address] US RENAL Observed: 07/31/2017 Status: F Source: [facility] 5:30 AM [facility] REPOSITORY ORIGINAL Ultrasound retroperitoneum Complete: Attention Urinary tract Clinical Statement: elevated creatinine, Comparison: None The right and left kidneys measure 11.5 cm. and 11.4 cm. in length, respectively and are normal in cortical thickness and echogenicity. No pelvicaliectasis, solid mass or other significant focal abnorma lity is seen. No renal stones. There is a tiny 1.1 cm cortical cyst in the left kidney. There may be very small parapelvic cyst in the left kidney also. There is no free fluid seen in the abdomen. Urinary bladder is moderately distended and unremarkable. Impression: Tiny left renal cyst. Otherwise Normal examination of the kidneys. Interpreted By: Julina Mckeon MD Preliminary Report By: Julian Mckeon MD Electronically Signed By: Julian Mckeon MD Dictated Date: 07/31/2017 8:23:33 AM Prelim Date: 07/31/2017 8:23:33 AM Sign Date: 07/31/2017 8:24:58 AM .GFR Collected: 07/31/2017 Status: F Source: [place] [employer] [employer] [facility] 4:52 AM [facility] REPOSITORY TYPE CODE TESTS RESULT OUT OF REFERENCE UNITS RANGE LAB GFRAA(LOINC ml/min/1.73 ) sqm GFR 7 [place]o Result Comment: GFR Population mean for , Non- Americans Ages 20-29 = 116 mL/min/1.73 sq.m. Ages 30-39 = 107 mL/min/1.73 sq.m. Ages 40-49 = 99 mL/min/1.73 sq.m. Ages 50-59 = 93 mL/min/1.73 sq.m. Ages 60-69 = 85 mL/min/1.73 sq.m. Ages 70+ = 75 mL/min/1.73 sq.m. Chronic Kidney Disease: Less than 60 mL/min/1.73 square meters End Stage Renal Disease: Less than 15 mL/min/1.73 square meters LAB GFRNO(LOINC) ml/min/1.73sqm GFR Non- 6 Result Comment: GFR Population mean for , Non- Americans Ages 20-29 = 116 mL/min/1.73 sq.m. Ages 30-39 = 107 mL/min/1.73 sq.m. Ages 40-49 = 99 mL/min/1.73 sq.m. Ages 50-59 = 93 mL/min/1.73 sq.m. Ages 60-69 = 85 mL/min/1.73 sq.m. Ages 70+ = 75 mL/min/1.73 sq.m. Chronic Kidney Disease: Less than 60 mL/min/1.73 square meters End Stage Renal Disease: Less than 15 mL/min/1.73 square meters Performed By: #### GFR, BMP #### [place] [address] BMP Collected: 07/31/2017 Status: F Source: [facility] 4:52 AM [facility] REPOSITORY TYPE CODE TESTS RESULT OUT OF RANGE REFERENCE UNITS LAB GLU(LOINC) 82-115 mg/dL High Glucose Level 117 LAB NA(LOINC) 136-145 mEq/L Sodium Level 136 LAB K(LOINC) 3.5-5.0 mEq/L Potassium Level 4.2 LAB CL(LOINC) 98-110 mEq/L Chloride 103 LAB CO2(LOINC) 22-32 mEq/L Low CO2 19 LAB EBAL(LOINC 4.0-15.0 mEq/L ) Electrolyte Balance 14.0 LAB BUN(LOINC) 8.0-22.0 mg/dL BUN Abnormal 119.0 Alert LAB CRE(LOINC) 0.50-1.20 mg/dL High Creatinine Lvl (s) 7.04 LAB BC(LOINC) 10.0-22.0 ratio BUN/Creatinine 16.9 Ratio LAB CA(LOINC) 8.4-10.1 mg/dL Calcium Lvl Abnormal 6.9 Alert Performed By: #### GFR, BMP #### [place] [address] [id number] Collected: 07/30/2017 Status: F Source: [facility] 9:33 PM [facility] REPOSITORY TYPE CODE TESTS RESULT OUT OF REFERENCE UNITS RANGE LAB C3A(LOINC) 79-152 mg/dL Complement C3A 102 LAB C4A(LOINC) 16-38 mg/dL Complement C4A 33 Performed By: #### C3C4A, ZAHIDA, CAROLINE #### [place] [address] ZAHIDA Collected: 07/30/2017 Status: F Source: [facility] 9:33 PM [facility] REPOSITORY TYPE CODE TESTS RESULT OUT OF RANGE REFERENCE UNITS LAB ZAHIDA(LOINC) Neg 40 ZAHIDA See Titer Performed By: #### C3C4A, ZAHIDA, CAROLINE #### [address] [address] CAROLINE Collected: 07/30/2017 Status: F Source: [facility] 9:33 PM [facility] REPOSITORY TYPE CODE TESTS RESULT OUT OF REFERENCE UNITS RANGE LAB ANAT1(LOIN C) 1280 or > ZAHIDA Titer 1 LAB ANAP1(LOIN C) Homogeneous ZAHIDA Pattern 1 Result Comment: At [place], an ZAHIDA titer of 160 or greater suggests connective tissue disease but should not be considered diagnostic. The ZAHIDA result should be considered in combination with other sero logical results and the clinical history of the patient. HOMOGENEOUS: Suggests systemic lupus erythematosis or drug- induced lupus. Low titers may be seen in other rheumatoid diseases. SUPPLEMENTAL TESTS: Anti-DNA, Complement C3 C4, Histone Ab (if patient is receiving hydralazine or procainamide). Performed By: #### C3C4A, ZAHIDA, CAROLINE #### [place] [address] CBC Collected: 07/30/2017 Status: F Source: [facility] 4:18 PM [facility] REPOSITORY TYPE CODE TESTS RESULT OUT OF REFERENCE UNITS RANGE LAB WBC(LOINC) 4.50-10.80 10 3/mcL High WBC 12.70 LAB RBCCT(LOINC 4.10-5.30 10 6/mcL ) Low RBC 3.88 LAB HGB(LOINC) 12.0-16.0 G/dL Low Hgb 11.6 LAB HCT(LOINC) 34.0-46.0 % Hct 34.9 LAB MCV(LOINC) 80.0-99.0 fL MCV 89.9 LAB MCH(LOINC) 27.0-33.0 pg MCH 29.9 LAB MCHC(LOINC) 32.0-36.0 G/dL MCHC 33.3 LAB RDW(LOINC) 11.5-15.5 % RDW 15.5 LAB PLT(LOINC) 150-450 10 3/mcL Platelet 375 LAB MPV(LOINC) 6.6-10.5 fL MPV 7.7 Performed By: #### CBC, ADIFF, ANEU, GFR, BMP, TROPI #### [place] [address] .AUTO DIFF Collected: 07/30/2017 Status: F Source: [facility] 4:18 PM [facility] REPOSITORY TYPE CODE TESTS RESULT OUT OF REFERENCE UNITS RANGE LAB EUGENIE(LOINC) 50.0-75.0 % High Neutrophil % 93.6 LAB LYM(LOINC) 20.0-40.0 % Low Lymphocyte % 1.9 LAB MON(LOINC) 2.0-13.0 % Monocyte % 4.3 LAB EO(LOINC) 0.0-6.0 % Eosinophil % 0.0 LAB BAS(LOINC) 0.0-2.5 % Basophil % 0.2 LAB ABLYM(LOIN 0.90-4.32 10 3/mcL C) Low Lymphocyte, 0.20 Absolute LAB NICK(LOINC 0.09-1.40 10 3/mcL ) Monocyte, 0.50 Absolute LAB AEOS(LOINC 0.00-0.65 10 3/mcL ) Eosinophil, 0.00 Absolute LAB ABAS(LOINC 0.00-0.27 10 3/mcL ) Basophil, 0.00 Absolute Performed By: #### CBC, ADIFF, ANEU, GFR, BMP, TROPI #### [place] [address] .NEUABS Collected: 07/30/2017 Status: F Source: [facility] 4:18 PM [facility] REPOSITORY TYPE CODE TESTS RESULT OUT OF REFERENCE UNITS RANGE LAB ANEU(LOINC) 2.25-8.10 10 3/mcL High Neutrophil, 11.90 Absolute Performed By: #### CBC, ADIFF, ANEU, GFR, BMP, TROPI #### [place] [address] .GFR Collected: 07/30/2017 Status: F Source: [facility] 4:18 PM [facility] REPOSITORY TYPE CODE TESTS RESULT OUT OF REFERENCE UNITS RANGE LAB GFRAA(LOINC ml/min/1.73 ) sqm GFR 6 [place] Result Comment: GFR Population mean for , Non- Americans Ages 20-29 = 116 mL/min/1.73 sq.m. Ages 30-39 = 107 mL/min/1.73 sq.m. Ages 40-49 = 99 mL/min/1.73 sq.m. Ages 50-59 = 93 mL/min/1.73 sq.m. Ages 60-69 = 85 mL/min/1.73 sq.m. Ages 70+ = 75 mL/min/1.73 sq.m. Chronic Kidney Disease: Less than 60 mL/min/1.73 square meters End Stage Renal Disease: Less than 15 mL/min/1.73 square meters LAB GFRNO(LOINC) ml/min/1.73sqm GFR Non- 5 Result Comment: GFR Population mean for , Non- Americans Ages 20-29 = 116 mL/min/1.73 sq.m. Ages 30-39 = 107 mL/min/1.73 sq.m. Ages 40-49 = 99 mL/min/1.73 sq.m. Ages 50-59 = 93 mL/min/1.73 sq.m. Ages 60-69 = 85 mL/min/1.73 sq.m. Ages 70+ = 75 mL/min/1.73 sq.m. Chronic Kidney Disease: Less than 60 mL/min/1.73 square meters End Stage Renal Disease: Less than 15 mL/min/1.73 square meters Performed By: #### CBC, ADIFF, ANEU, GFR, BMP, TROPI #### [place] [address] BMP Collected: 07/30/2017 Status: F Source: [facility] 4:18 [facility] REPOSIT[facility] TYPE CODE TESTS RESULT OUT OF REFERENCE UNITS RANGE LAB GLU(LOINC) 82-115 mg/dL High Glucose Level 356 LAB NA(LOINC) 136-145 mEq/L Low Sodium Level 132 LAB K(LOINC) 3.5-5.0 mEq/L Potassium Level 4.6 Result Comment: Specimen slightly hemolyzed. Results may be falsely elevated. LAB CL(LOINC) 98-110 mEq/L Chloride 98 LAB CO2(LOINC) 22-32 mEq/L Low CO2 18 LAB EBAL(LOINC) 4.0-15.0 mEq/L High Electrolyte Balance 16.0 LAB BUN(LOINC) 8.0-22.0 mg/dL Abnormal BUN Alert 124.0 LAB CRE(LOINC) 0.50-1.20 mg/dL High Creatinine Lvl (s) 8.13 LAB BC(LOINC) 10.0-22.0 ratio BUN/Creatinine Ratio 15.3 LAB CA(LOINC) 8.4-10.1 mg/dL Low Calcium Lvl 7.1 Performed By: #### CBC, ADIFF, ANEU, GFR, BMP, TROPI #### [place] [id number] [place] [id number] TROPI Collected: 07/30/2017 Status: F Source: [facility] 4:18 PM [facility] REPOSITORY TYPE CODE TESTS RESULT OUT OF REFERENCE UNITS RANGE LAB TROPI(LOINC 0.000-0.040 ng/mL ) High Troponin I 0.072 Result Comment: Troponin I reference ranges (03/17/14): 0.00-0.040 ng/mL Negative and non-diagnostic. >0.040 ng/mL Consistent with cardiac damage, increased clinical risk and possibility of myocardial infarction. Serial measurements, a rise & fall in test results, clinical history, appropriate symptoms and/or ECG changes may help assess possibility of LA. *Other non-acute coronary syndrome conditions such as CHF, myocarditis, pulmonary emboli, sepsis and cardiac surgery could result in myocardial damage and increased troponin levels. Performed By: #### CBC, ADIFF, ANEU, GFR, BMP, TROPI #### [address] [address] ALLERGIES ALLERGIES DATE TYPE / CODE NAME / CODE REACTION SEVERITY SOURCE 08/01/2018 Drug simvastatin/ Unknown Unknown [facility] Allergy/4160 [id number]([facility] [id number](SNOMED XNORM) Repository CT) ENCOUNTERS ENCOUNTERS ADMIT/DISCHARGE ACCOUNT NUMBER ADMITTING ENCOUNTER LOCATION SOURCE CLASS 08/07/2018/08/07/19 [id number] Ambulatory BMSBuilding: [place] [facility] Repository 08/01/2018 [id number] Ambulatory [facility] ding:RAD Repository 08/01/2018/08/01/19 [id number] Ambulatory BMSBuilding: Tye 19 BMS.[facility] Repository 07/26/2018 [id number] Ambulatory BMSBuilding: Memo BMS.[facility] Repository 07/18/2018/07/24/19 [id number] Tysahwn Inpatient Tye Tye 19 Neil Encounter [facility] ding:PCURoom Repository : [id number]: 1 07/18/2018 [id number] Tyshawn Ambulatory BMSBuilding: Tye Neil BMS.[facility] Repository 07/18/2018 [id number] Jopperi, Ambulatory BMSBuilding: Memo Neil BMS.[facility] Repository 07/18/2018 [id number] Tyshawn, Ambulatory BMSBuilding: Memo Neil BMS.[facility] Repository 07/18/2018 [id number] Tyshawn, Ambulatory BMSBuilding: Memo Neil BMS.[facility] Repository 07/18/2018 [id number] Tyshawn, Ambulatory BMSBuilding: Memo Neil BMS.[facility] Repository 07/18/2018 [id number] Tyshawn, Ambulatory BMSBuilding: Memo Neil BMS.[facility] Repository 07/18/2018 [id number] Tyshawn, Ambulatory BMSBuilding: Memo Neil BMS.[facility] Repository 07/15/2018/07/15/19 [id number] Emergency [address] ding:ED Repository 07/04/2018/07/13/19 [id number] Megan, Inpatient [address] ding:PCURoom Repository : [id number]: 1 07/04/2018 [id number] Megan, Ambulatory BMSBuilding: Tye Benjie F BMS.[facility] Repository 07/04/2018 [id number] Andrews, Ambulatory BMSBuilding: Memo Benjie F BMS.[facility] Repository 07/04/2018 [id number] Megan, Ambulatory BMSBuilding: Tye Benjie F BMS.[facility] Repository 07/04/2018 [id number] Kelseyonis, Ambulatory BMSBuilding: Tye Benjie F BMS.[facility] Repository 07/04/2018 [id number] Andrews, Ambulatory BMSBuilding: Tye Benjie F BMS.[facility] Repository 07/04/2018 [id number] Andrews, Ambulatory BMSBuilding: Tye Benjie F BMS.[facility] Repository 07/04/2018 [id number] Megan, Ambulatory BMSBuilding: Memo Benjie F BMS.[facility] Repository 07/04/2018 [id number] Kotsonis, Ambulatory BMSBuilding: Memo Benjie F BMS.[facility] Repository 07/04/2018 [id number] Kotsonis, Ambulatory BMSBuilding: Tye Benjie F [facility] [place] 07/04/2018 [id number] Kotsonis, Ambulatory BMSBuilding: Tye Benjie F BMS.[facility] Repository 07/04/2018 [id number] Kotsonis, Ambulatory BMSBuilding: Memo Benjie F [facility] [place] 07/04/2018 [id number] Kotsonis, Ambulatory BMSBuilding: Tye Benjie F [facility] [place] 07/04/2018 [id number] Kotsonis, Ambulatory BMSBuilding: Tye Benjie F BMS.[facility] Repository 07/04/2018 [id number] Kotsonis, Ambulatory BMSBuilding: Memo Benjie F BMS.[facility] Repository 07/04/2018 [id number] Kotsonis, Ambulatory BMSBuilding: Tye Benjie F [facility] [place] 07/04/2018/07/13/19 [id number] Ambulatory BMSBuilding: Memo 19 [facility] Repository 06/24/2018/07/02/20 [id number] ELLEN SIMS, Inpatient ABuilding:ME Nila 18 MEÑO W Encounter 4NRoom: Health 4610Bed: A [facility] Repository 06/20/2018/06/24/20 [id number] ELLEN SIMS, Inpatient BBuilding:MS Anthony 18 MEÑO W Encounter URRoom: Health 0224Bed: A [facility] Repository 06/12/2018/06/20/20 [id number] ELLEN SIMS, Inpatient BBuilding:MS Anthony 18 MEÑO W Encounter URRoom: Health 0224Bed: S [facility] Repository 05/31/2018/06/12/20 [id number] ELLEN SIMS, Inpatient ABuilding:ME Nila 18 MEÑO W Encounter 4ERoom: Health 4730Bed: A [facility] Repository 05/30/2018/05/31/20 [id number] ELLEN SIMS, Inpatient BBuilding:MS Nila 18 MEÑO W Encounter URRoom: Health 0220Bed: A [facility] Repository 03/15/2018/05/22/20 [id number] Ambulatory BBuilding:CR Nila 18 [facility] Repository 02/13/2018/02/14/20 [id number] Ambulatory AULTMANBuild Nila 18 ing:[employer] [facility] Repository 01/30/2018/01/31/20 [id number] Ambulatory AULTMANBuild Nila 18 ing:[employer] [facility] Repository 01/26/2018/01/27/20 [id number] Ambulatory NILA Nila 18 [facility] ding:Erenis [facility] Repository 01/25/2018/01/26/20 [id number] Ambulatory NILA Nila 18 [facility] ding:[employer] Repository 01/23/2018/01/24/20 [id number] Ambulatory AULTMANBuild Nila 18 ing:[employer] [facility] Repository 01/12/2018/01/13/20 [id number] Ambulatory AULTMANBuild Nila 18 ing:[employer] Repository 01/09/2018/01/10/20 [id number] Ambulatory AULTMANBuild Nila 18 ing:[facility] Repository 12/29/2017/12/30/19 [id number] Ambulatory AULTMANBuild Nila 18 ing:[facility] Repository 12/26/2017/12/27/19 [id number] Ambulatory AULTMANBuild Nila 18 ing:[facility] Repository 12/11/2017/12/22/19 [id number] ELLEN SIMS, Inpatient BBuilding:MS Nila 18 MEÑO W Encounter URRoom: Health 0239Bed: [employer] Repository 12/11/2017/12/22/19 [id number] ELLEN SIMS, Inpatient BBuilding:MS Nila 18 MEÑO W Encounter URRoom: Health 0239Bed: [facility] Repository 12/01/2017/12/12/19 [id number] ALISTAIR SISM., Inpatient ABuilding:HUNG Ga Encounter URoom: Health 0350Bed: A [facility] Repository 12/01/2017/12/12/19 [id number] ALISTAIR SIMS., Inpatient ABuilding:HUNG Ga Encounter URoom: Health 0350Bed: A [facility] Repository 12/01/2017/12/02/19 [id number] Emergency BBuilding:ER Nila 18 [facility] Repository 11/30/2017/01/29/20 [id number] Ambulatory RBuilding:WH Nila 18 [facility] Repository 11/12/2017/11/30/19 [id number] ELLEN SIMS, Inpatient ABuilding:CV Nila Ga Encounter SDRoom: Health 0214Bed: A [facility] Repository 11/11/2017/11/13/19 [id number] Emergency BBuilding:ER Nila 18 [facility] Repository 11/06/2017/11/07/19 [id number] Ambulatory [address] ding:RAD [facility] Repository 10/07/2017/10/08/19 [id number] Emergency BBuilding:ER Nila 18 [facility] Repository 08/31/2017/08/31/19 [id number] Ambulatory [address] ding:RAD [facility] Repository 08/16/2017/08/16/19 [id number] Ambulatory [address] ding:OLAB [facility] Repository 08/14/2017/08/14/19 [id number] Emergency BBuilding:ER Nila 18 O [facility] Repository 07/30/2017/08/11/19 [id number] ALISTAIR SIMS., Inpatient ABuilding:ME Nila Ga Encounter 5SRoom: Health 5681Bed: A [facility] Repository PAYERS PAYERS ENCOUNTER GUARANTOR PAYER SUBSCRIBER SOURCE 08/07/2018 JENNIFER Quinones Primary JENNIFER Hampton [facility] Insurance:MEDICARE DEITZDOB: [facility]ly [facility] NURSING [id number] PART A [facility] [id number] Number[place] Repository [address]Dks: 330 [id number] [phone] () Date:2018-08-01 08/07/2018 Secondary JENNIFER J Memo Insurance:HUMANA DEITZDOB: [facility] [id number] Hospital Number: Repository [id number] Date:0359-88-79DQ[address] [address]AW: 08/07/2018 Tertiary NOT GIVENUNK Memo Insurance:SELF PAY [facility] Number: Effective Repository Date:2018-08-06 08/01/2018 JENNIFER J Primary JENNIFER J Memo [place] Insurance:MEDICARE DEITZDOB: [facility] NURSING [id number] PART A [facility] [id number] Number[place] Repository [address]Vnc: 330 [id number] [phone] () Date:2018-08-01 08/01/2018 Secondary JENNIFER J Memo Insurance:HUMANA DEITZDOB: [facility] [id number] Hospital Number: Repository [id number] Date:7042-04-79RC[address] [address]EG: 08/01/2018 Tertiary NOT GIVENUNK Memo Insurance:SELF PAY [facility] Number: Effective Repository Date:2018-08-01 08/01/2018 JENNIFER J Primary JENNIFER J Memo [place] Insurance:MEDICARE DEITZDOB: [facility] NURSING [id number] PART A [facility] [id number] Number: Repository [address]Wbu: 330 [id number] [phone] () Date:2018-07-25 08/01/2018 Secondary JENNIFER J Tye Insurance:HUMANA DEITZDOB: [facility] [id number] Hospital Number: Repository [id number] Date:4892-26-38YG [address] [address]FH: 08/01/2018 Tertiary NOT GIVENUNK Tye Insurance:SELF PAY [facility] Number: Effective Repository Date:2018-07-26 07/26/2018 JENNIFER J Primary JENNIFER J Tye [place] Insurance:MEDICARE DEITZDOB: Community NURSING [id number] PART A [facility] [id number] Number: Repository [address]Drk: 330 [id number] [phone] () Date:2018-07-26 07/26/2018 Secondary JENNIFER J Tye Insurance:HUMANA DEITZDOB: [facility] [id number] Hospital Number: Repository [id number] Date:5247-85-18SJ [address] [address]RM: 07/26/2018 Tertiary NOT GIVENUNK Tye Insurance:SELF PAY [facility] Number: Effective Repository Date:2018-07-26 07/18/2018 JENNIFER J Primary JENNIFER J Tye [place] Insurance:MEDICARE DEITZDOB: [facility] NURSING [id number] PART A [facility] [id number] Number: Repository [address]Pzx: 330 [id number] [phone] () Date:2018-07-18 07/18/2018 Secondary JENNIFER J Memo Insurance:HUMANA DEITZDOB: [facility] [id number] Hospital Number: Repository [id number] Date:8685-58-06TG [address] [address]SG: 07/18/2018 Tertiary NOT GIVENUNK Memo Insurance:SELF PAY [facility] Number: Effective Repository Date:2018-07-18 07/18/2018 JENNIFER J Primary JENNIFER J Tye [place] Insurance:MEDICARE DEITZDOB: [facility] NURSING [id number] PART A [facility] [id number] Number: Repository [address]Gmf: 330 [id number] [phone] (HP) Date:2018-07-18 07/18/2018 Secondary JENNIFER J Tye Insurance:HUMANA DEITZDOB: [facility] [id number] Hospital Number: Repository [id number] Date:5359-78-37GL [address] [address]YY: 07/18/2018 Tertiary NOT GIVENUNK Memo Insurance:SELF PAY [facility] Number: Effective Repository Date:2018-07-18 07/18/2018 JENNIFER J Primary JENNIFER J Memo [place] Insurance:MEDICARE DEITZDOB: [facility] NURSING [id number] PART A [facility] [id number] Number: Repository [address]Ajs: 330 [id number] [phone] () Date:2018-07-18 07/18/2018 Secondary JENNIFER J Tye Insurance:HUMANA DEITZDOB: [facility] [id number] Hospital Number: Repository [id number] Date:8723-24-28UG [address] [address]PD: 07/18/2018 Tertiary NOT GIVENUNK Memo Insurance:SELF PAY [facility] Number: Effective Repository Date:2018-07-18 07/18/2018 JENNIFER J Primary JENNIFER J Tye [place] Insurance:MEDICARE DEITZDOB: [facility] NURSING [id number] PART A [facility] [id number] Number: Repository [address]Fci: 330 [id number] [phone] () Date:2018-07-18 07/18/2018 Secondary JENNIFER J Tye Insurance:HUMANA DEITZDOB: [facility] [id number] Hospital Number: Repository [id number] Date:1728-68-50LM [address] [address]JA: 07/18/2018 Tertiary NOT GIVENUNK Memo Insurance:SELF PAY [facility] Number: Effective Repository Date:2018-07-18 07/18/2018 JENNIFER J Primary JENNIFER J Tye [place] Insurance:MEDICARE DEITZDOB: Community NURSING [id number] PART A [facility] [id number] Number: Repository [address]Vgu: 330 [id number] [phone] (HP) Date:2018-07-18 07/18/2018 Secondary JENNIFER J Memo Insurance:HUMANA DEITZDOB: [facility] [id number] Hospital Number: Repository [id number] Date:2168-09-69TB [address] [address]DC: 07/18/2018 Tertiary NOT GIVENUNK Tye Insurance:SELF PAY [facility] Number: Effective Repository Date:2018-07-18 07/18/2018 JENNIFER J Primary EJNNIFER J Memo [place] Insurance:MEDICARE DEITZDOB: [facility] NURSING [id number] PART A [facility] [id number] Number: Repository [address]Uto: 330 [id number] [phone] () Date:2018-07-18 07/18/2018 Secondary JENNIFER J Memo Insurance:HUMANA DEITZDOB: [facility] [id number] Hospital Number: Repository [id number] Date:2603-54-01EE[address] [address]YY: 07/18/2018 Tertiary NOT GIVENUNK Memo Insurance:SELF PAY [facility] Number: Effective Repository Date:2018-07-18 07/18/2018 JENNIFER J Primary JENNIFER J Memo [place] Insurance:MEDICARE DEITZDOB: [facility] NURSING [id number] PART A [facility] [id number] Number: Repository [address]Xgb: 330 [id number] [phone] (HP) Date:2018-07-18 07/18/2018 Secondary JENNIFER J Tye Insurance:HUMANA DEITZDOB: [facility] [id number] Hospital Number: Repository [id number] Date:3840-13-00PG [address] [address]LV: 07/18/2018 Tertiary NOT GIVENUNK Tye Insurance:SELF PAY [facility] Number: Effective Repository Date:2018-07-18 07/18/2018 JENNIFER J Primary JENNIFER J Memo [place] Insurance:MEDICARE DEITZDOB: [facility] NURSING [id number] PART A [facility] [id number] Number: Repository [id number]: 330 [id number] [phone] () Date:2018-07-18 07/18/2018 Secondary JENNIFER J Tye Insurance:HUMANA DEITZDOB: [facility] [id number] Hospital Number: Repository [id number] Date:4991-00-36OR [address] [address]OH: 07/18/2018 Tertiary NOT GIVENUNK Memo Insurance:SELF PAY [facility] Number: Effective Repository Date:2018-07-18 07/15/2018 JENNIFER J Primary JENNIFER J Tye [place] Insurance:MEDICARE DEITZDOB: [facility] NURSING [id number] PART A [facility] [id number] Number: Repository [address]Njv: 330 [id number] [phone] () Date:2018-07-15 07/15/2018 Secondary JENNIFER J Tye Insurance:HUMANA DEITZDOB: [facility] [id number] Hospital Number: Repository [id number] Date:7694-04-99UH [address] [address]QH: 07/15/2018 Tertiary NOT GIVENUNK Memo Insurance:SELF PAY [facility] Number: Effective Repository Date:2018-07-15 07/04/2018 JENNIFER J [id number] E Primary JENNIFER J Memo [place], Insurance:MEDICARE DEITZDOB: [facility] [address]Cav: (330) PART A [facility] [id number] Hospital () Number: Repository [id number] Date:2018-07-04 07/04/2018 Secondary JENNIFER J Tye Insurance:HUMANA DEITZDOB: [facility] [id number] Hospital Number: Repository [id number] Date:7853-84-55PD [address] [address]BK: 07/04/2018 Tertiary NOT GIVENUNK Tye Insurance:SELF PAY [facility] Number: Effective Repository Date:2018-07-04 07/04/2018 JENNIFER J Primary JENNIFER J Memo [facility] Insurance:MEDICARE DEITZDOB: [facility] PART A [facility] [id number] Number: Repository [address]Hdx: (330) [id number] [phone] () Date:2018-07-04 07/04/2018 Secondary JENNIFER J Memo Insurance:HUMANA DEITZDOB: [facility] [id number] Hospital Number: Repository [id number] Date:7319-15-57NT[address] [address]JD: 07/04/2018 Tertiary NOT GIVENUNK Memo Insurance:SELF PAY [facility] Number: Effective Repository Date:2018-07-04 07/04/2018 JENNIFER J [id number] E Primary JENNIFER J Memo [place] [facility] Insurance:MEDICARE DEITZDOB: [facility] [address]Ich: (330) PART A [facility] [id number] Hospital () Number: Repository [id number] Date:2018-07-04 07/04/2018 Secondary JENNIFER J Tye Insurance:HUMANA DEITZDOB: [facility] [id number] Hospital Number: Repository [id number] Date:3956-44-16UC [address] [address]QL: 07/04/2018 Tertiary NOT GIVENUNK Memo Insurance:SELF PAY [facility] Number: Effective Repository Date:2018-07-04 07/04/2018 JENNIFER J [id number] E Primary JENNIFER J Tye [place], Insurance:MEDICARE DEITZDOB: [facility] [id number]: (701) PART A [facility] [id number] [place] [address] () Number: Repository [id number] Date:2018-07-04 07/04/2018 Secondary JENNIFER J Memo Insurance:HUMANA DEITZDOB: [facility] [id number] Hospital Number: Repository [id number] Date:5761-71-70RW[address] [address]HK: 07/04/2018 Tertiary NOT GIVENUNK Tye Insurance:SELF PAY [facility] Number: Effective Repository Date:2018-07-04 07/04/2018 JENNIFER J [id number] E Primary JENNIFER J Memo [place], Insurance:MEDICARE DEITZDOB: [facility] [id number]: (234) PART A [facility] [id number] [place] [address] () Number: Repository [id number] Date:2018-07-04 07/04/2018 Secondary JENNIFER J Tye Insurance:HUMANA DEITZDOB: [facility] [id number] Hospital Number: Repository [id number] Date:1868-50-68PE[address] [address]ST: 07/04/2018 Tertiary NOT GIVENUNK Memo Insurance:SELF PAY [facility] Number: Effective Repository Date:2018-07-04 07/04/2018 JENNIFER J [id number] E Primary JENNIFER J Tye [place], Insurance:MEDICARE DEITZDOB: [facility] [place] [address]Gak: (330) PART A [facility] [id number] Hospital () Number: Repository [id number] Date:2018-07-04 07/04/2018 Secondary JENNIFER J Memo Insurance:HUMANA DEITZDOB: [facility] [id number] Hospital Number: Repository [id number] Date:4195-78-56WR [address] [address]MM: 07/04/2018 Tertiary NOT GIVENUNK Memo Insurance:SELF PAY [facility] Number: Effective Repository Date:2018-07-04 07/04/2018 JENNIFER J [id number] E Primary JENNIFER J Tye [place], Insurance:MEDICARE DEITZDOB: [facility] [id number]: (330) PART A [facility] [id number] Hospital () Number: Repository [id number] Date:2018-07-04 07/04/2018 Secondary JENNIFER J Tye Insurance:HUMANA DEITZDOB: [facility] 3050-32-66WVS Hospital Number: Repository [id number] Date:0822-11-62UI [address] [place] [address]IL: 07/04/2018 Tertiary NOT GIVENUNK Memo Insurance:SELF PAY [facility] Number: Effective Repository Date:2018-07-04 07/04/2018 JENNIFER J [id number] E Primary JENNIFER J Tye [place], Insurance:MEDICARE DEITZDOB: [facility] [id number]: (330) PART A [facility] [id number] Hospital () Number: Repository [id number] Date:2018-07-04 07/04/2018 Secondary JENNIFER J Memo Insurance:HUMANA DEITZDOB: [facility] [id number] Hospital Number: Repository [id number] Date:0519-23-68ND [address] [address]EG: 07/04/2018 Tertiary NOT GIVENUNK Tye Insurance:SELF PAY [facility] Number: Effective Repository Date:2018-07-04 07/04/2018 JENNIEFR J [id number] E Primary JENNIFER J Memo [place], Insurance:MEDICARE DEITZDOB: [facility] [place] [address]Jkt: (330) PART A [facility] [id number] [place] [address] () Number: Repository [id number] Date:2018-07-04 07/04/2018 Secondary JENNIFER J Tye Insurance:HUMANA DEITZDOB: [facility] [id number] Hospital Number: Repository [id number] Date:8775-97-19SU [address] [address]HG: 07/04/2018 Tertiary NOT GIVENUNK Memo Insurance:SELF PAY [facility] Number: Effective Repository Date:2018-07-04 07/04/2018 JENNIFER J [id number] E Primary JENNIFER J Memo [place], Insurance:MEDICARE DEITZDOB: [facility] [address]Yds: (330) PART A [facility] [id number] [place] [address] () Number: Repository [id number] Date:2018-07-04 07/04/2018 Secondary JENNIFER J Tye Insurance:HUMANA DEITZDOB: [facility] [id number] Hospital Number: Repository [id number] Date:4849-27-74DA [address] [address]EJ: 07/04/2018 Tertiary NOT GIVENUNK Tye Insurance:SELF PAY [facility] Number: Effective Repository Date:2018-07-04 07/04/2018 JENNIFER J [id number] E Primary JENNIFER J Tye [place], Insurance:MEDICARE DEITZDOB: [facility] [address]Rch: (330) PART A [facility] [id number] [place] [address] () Number: Repository [id number] Date:2018-07-04 07/04/2018 Secondary JENNIFER J Tye Insurance:HUMANA DEITZDOB: [facility] 2521-15-25MKN Hospital Number: Repository [id number] Date:4305-31-72AF[address] [address]KM: 07/04/2018 Tertiary NOT GIVENUNK Memo Insurance:SELF PAY [facility] Number: Effective Repository Date:2018-07-04 07/04/2018 JENINFER J [id number] E Primary JENNIFER J Memo [place], Insurance:MEDICARE DEITZDOB: [facility] [id number]: (635) PART A [facility] [id number] [place] [address] () Number: Repository [id number] Date:2018-07-04 07/04/2018 Secondary JENNIFER J Memo Insurance:HUMANA DEITZDOB: [facility] [id number] Hospital Number: Repository [id number] Date:6445-40-25WD [address] [address]TA: 07/04/2018 Tertiary NOT GIVENUNK Tye Insurance:SELF PAY [facility] Number: Effective Repository Date:2018-07-04 07/04/2018 JENNIFER J [id number] E Primary JENNIFER J Memo [place], Insurance:MEDICARE DEITZDOB: [facility] [address]Rdn: (403) PART A [facility] [id number] Hospital () Number: Repository [id number] Date:2018-07-04 07/04/2018 Secondary JENNIFER J Memo Insurance:HUMANA DEITZDOB: [facility] 2614-27-34TMK Hospital Number: Repository [id number] Date:2982-52-42UB[address] [address]YU: 07/04/2018 Tertiary NOT GIVENUNK Tye Insurance:SELF PAY [facility] Number: Effective Repository Date:2018-07-04 07/04/2018 JENNIFER J [id number] E Primary JENNIFER J Tye [place], Insurance:MEDICARE DEITZDOB: [facility] [address]Jwh: (330) PART A [facility] [id number] [place] [address] () Number: Repository [id number] Date:2018-07-04 07/04/2018 Secondary JENNIFER J Tye Insurance:HUMANA DEITZDOB: [facility] [id number] Hospital Number: Repository [id number] Date:3185-63-13CQ [address] [address]LS: 07/04/2018 Tertiary NOT GIVENUNK Memo Insurance:SELF PAY [facility] Number: Effective Repository Date:2018-07-04 07/04/2018 JENNIFER J [id number] E Primary JENNIFER J Memo [address] [facility], Insurance:MEDICARE DEITZDOB: [facility] [address]Aaa: (330) PART A [facility] [id number] [address] () Number: Repository [id number] Date:2018-07-04 07/04/2018 Secondary JENNIFER J Memo Insurance:HUMANA DEITZDOB: [facility] [id number] Hospital Number: Repository [id number] Date:5360-51-70AC [address] [address]SD: 07/04/2018 Tertiary NOT GIVENUNK Tye Insurance:SELF PAY [facility] Number: Effective Repository Date:2018-07-04 07/04/2018 JENNIFER J [id number] E Primary JENNIFER J Tye [place] [place], Insurance:MEDICARE DEITZDOB: [facility] [place] [address]Ius: (330) PART A [facility] [id number] [place] [address] () Number: Repository [id number] Date:2018-07-04 07/04/2018 Secondary JENNIFER J Tye Insurance:HUMANA DEITZDOB: [facility] [id number] Hospital Number: Repository [id number] Date:9370-60-24VY [address] [place] [address]HD: 07/04/2018 Tertiary NOT GIVENUNK Memo Insurance:SELF PAY [facility] Number: Effective Repository Date:2018-07-04 07/04/2018 JENNIFER J Primary JENNIFER J Memo [facility] Insurance:MEDICARE DEITZDOB: [facility] NURSING [id number] [facility] [id number] [place] Number: Repository [address]Zut: 330 [id number] [phone] () Date:2018-07-04 07/04/2018 Secondary JENNIFER J Tye Insurance:HUMANA DEITZDOB: [facility] [id number] Hospital Number: Repository [id number] Date:2599-59-43ML [address] [place] [address]IZ: 07/04/2018 Tertiary NOT GIVENUNK Tye Insurance:SELF PAY [facility] Number: Effective Repository Date:2018-07-04 06/24/2018 JENNIFER J DEITZDOB: Primary JENNIFER J [facility] E Insurance:MEDICARE DEITZDOB: [facility], PART A [facility] [id number] [facility] [address]Krv: (330) Number: 7 [address] () [id number] Date:2018-06-24 [address]Dcq: (257) 6805-01-81Ekxc 683-2006 Name:MMail Code AG ()Tel: (446) [phone] [address] () 296661Qdsdftwo, [place] [address]HU: 06/24/2018 Secondary JENNIFER J [facility] Insurance:MEDICARE DEITZDOB: [facility] PART B [facility] [id number] Repository Number: [address] [id number] [place] Date:2018-06-24 0300[address]Lzt: (140) 2362-48-07Zgwu 683-2006 Name:PCGS ()Tel: (000) Administrators LLCPO 000-0000 (WP) [address] [address]zyhnnjoy, [place] [address]IZ: 06/24/2018 Tertiary JENNIFER [facility] Insurance:HUMANA DEITZDOB: [facility] Number: [id number] Repository [id number] 7 [address] Date:2018-06-24 - [place] 1605-08-41Zsav [address]Owz: (330) Name:MENDING CARRIER [address] [place] [address] (HP)Tel: (000) [address]TP: (WP) [id number] 06/20/2018 JENNIFER J DEITZDOB: [facility] Insurance[facility]MEDICARE DEITZDOB: [facility] PART A [facility] [id number] Repository [place] [address]Umd: (330) Number: [address] () [id number] [place] Date:2018-06-20 [address]Njm: (330) 8795-50-10Gjfa 683-2006 Name:Natasha DIXON ()Tel: (000) [address] (WP) 135[address]Jezdzazg, [place] [address]LZ: 06/20/2018 [facility] Insurance:MEDICARE DEITZDOB: [facility] PART B INSCOPolicy [id number] Repository Number: [facility] [id number] [place] Date:2018-06-20 [address]Jgq: (330) 9150-90-43Ztim Name:PCGS (HP)Tel: (000) Administrators LLCPO 000-0000 (WP) [address] [address]Jfpvmacma, [place] [address]EO: 06/20/2018 Tertiary [facility] Insurance:HUMANA DEITZDOB: [facility] Number: [id number] Repository [id number] 7 [address] Date:2018-06-20 [place] 0784-02-41Gspr [address]Tjd: (330) Name:MENDING CARRIER [address] [place] [address] ()Tel: (000) [address]FC: (WP) [phone] 06/12/2018 JENNIFER J DEITZDOB: Primary JENNIFER J [facility] E Insurance:MEDICARE DEITZDOB: [facility] A [facility] [id number] [place]ository [place] [address]Dzk: (330) Number: 7 [facility] () [id number] [place], [place] Date:2018-06-12Tel: (330) 3893-31-28Kkxv Name:MMail Dom AG ()Tel: (000) [address] (WP) 412948Aofmtgqu, [place] [address]UW: 06/12/2018 Secondary JENNIFER J [facility] Insurance:MEDICARE DEITZDOB: [facility] PART B [facility] [id number] Repository Number: 7 [facility] [id number] [place] Date:2018-06-12 [address]Ahk: (330) 5734-16-62Vhvj Name:PCGS ()Tel: (000) Administrators LLCPO 000-0000 (WP) [address] [place] [address]CX: 06/12/2018 Tertiary JENNIFER J [facility] Insurance:HUMANA DEITZDOB: [facility] Number: [id number] Repository [id number] [address] Date:2018-06-12 [place] 1477-21-09Yldm [address]Fgh: (330) Name:MENDING CARRIER [address] [place] [address] ()Tel: (000) [address]BJ: (WP) [phone] 05/31/2018 JENNIFER J DEITZDOB: Primary JENNIFER J [facility] E Insurance:MEDICARE DEITZDOB: [facility] PART A [facility] [id number] Repository [place] [address]Evl: (330) Number: 7 [address] () [id number] [facility], [place] Date:2018-05-31 [address]Xjj: (330) 6270-19-74Rnyy 683-2006 Name:MMail Code AG ()Tel: (000 [address] (WP) 276746Ynmrlfpf, [place] [address]NP: 05/31/2018 Secondary JENNIFER [facility] Health Insurance:MEDICARE DEITZDOB: [facility] PART B [facility] [id number] Repository Number: [address] [id number] [facility], [place] Date:2018-05-31 358[address]Rnu: (330) 3165-45-68Egfc 683-2006 Name:PCGS ()Tel: (000) Administrators LLCPO 000-0000 (WP) [address] [place] [address]HC: 05/31/2018 [facility] Insurance:HUMANA DEITZDOB: [facility] Number: [id number] Repository [id number] [address] Date:2018-05-31 [place] 5907-52-41Mxlz [address]Vlk: (330) Name:MENDING CARRIER [address] [place] [address] ()Tel: (000) [address]WP: (WP) [phone] 05/30/2018 JENNIFER J DEITZDOB: [facility] Insurance:MEDICARE DEITZDOB: [facility], PART A [facility] [id number] Repository [place] [address]Xqk: (330) Number: 7 [facility] () [id number] [facility], [place] Date:2018-05-30 [address]Wxo: (330) 9200-02-34Vpow Name:Natasha DIXON (HP)Tel: (000) [address] (WP) 891549Jywcbwms, [place] [address]WD: 05/30/2018 Secondary JENNIFER J [facility] Insurance:MEDICARE [facility]ALL[facility]: [facility] PART [facility] [id number] Repository Number: 7 [facility] [id number] [place] Date:2018-05-30 [address]Amg: (330) 8337-11-97Afzw Name:[facility] ()Tel: (000) Administrators LLCPO 000-0000 (WP) [address] [address]Roraokabt, [place] [address]JK: 05/30/2018 Tertiary JENNIFER J [facility] Number: [id number] Repository [id number] [address] Date:2018-05-30 [place], [place] 0339-06-92Zuki [address]Ugg: (330) Name:MENDING CARRIER [address] [place] [address] ()Tel: (000) [address]JU: (WP) [phone] 03/15/2018 JENNIFER J DEITZDOB: [facility] Insurance:MEDICARE DEITZDOB: [facility] BPolicy Number: [id number] Repository [place] [address]Epu: (330) [id number] [address] () Date:2018-03-13 [place], [place] 6127-84-70Imtq [address]Otp: (330) Name:[facility] Administrators LLCPO (HP)Tel: (000) [address] [address]Endfnwdut, 000-0000 (WP) [place] [address]GD: 03/15/2018 Secondary JENNIFER J [facility] Insurance:HUMANA DEITZDOB: [facility] [id number] Repository Number: [address] [id number] [place] Date:2018-03-13 [address]Qjo: (781) 3507-05-06Itaz Name:Fabi () (WP) 02/13/2018 JENNIFER J DEITZDOB: Primary JENNIFER J [facility] E Insurance:MEDICARE DEITZDOB: [facility] BPolicy Number: [id number] [place]ository [place] [address]Igc: (330) [id number] [address] (HP) Date:2018-02-13 [place], [place] 9614-11-18Kgml [address]Eek: (330) Name:[facility] Administrators LLCPO (HP)Tel: (000) [address]Gvzzwsgyc, 000-0000 (WP) [place] [address]PH: 02/13/2018 Secondary JENNIFER [facility] Insurance:HUMANA DEITZDOB: [facility] [id number] Repository Number: 7 E SONI[address] [id number] [facility] [place] Date:2018-02-13 [address]Fjd: 330 3699-29-12Ezuk Name:Fabi () (WP) 01/30/2018 JENNIFER J DEITZDOB: Primary JENNIFER J [facility] E Insurance:MEDICARE DEITZDOB: [facility] Number: [id number] Repository [place] [address]Hbo: (330) [id number] 7 [address] () Date:2018-01-26 [place], [place] 9833-90-15Vdew [address]Flc: (330) Name:[facility] Administrators LLCPO (HP)Tel: (000) [address] [address]Vzpuzrbdr, 000-0000 (WP) [place] [address]TJ: 01/30/2018 Secondary JENNIFER J [facility] Insurance:HUMANA DEITZDOB: [facility] [id number] Repository Number: [address] [id number] [facility], [place] Date:2018-01-26 [address]Gcs: (386) 2313-15-33Jafs Name:MENDING CARRIER Box (HP)Tel: (000) [address]188ZYZNOYLXQ, [place] 000-0000 (WP) [address]CN: 01/26/2018 JENNIFER J DEITZDOB: Primary JENNIFER J [facility] E Insurance:MEDICARE DEITZDOB: [facility] BPolicy Number: [id number] Repository [place] [address]Adx: (643) [id number] [address] (HP) Date:2018-01-17 [place], [place] 8428-81-76Bzjo [address]Obg: (330) Name:[facility] Administrators LLCPO (HP)Tel: (000) [address] [address]Cukzshegi, 000-0000 (WP) [place] [address]ND: 01/26/2018 [facility] Insurance:HUMANA DEITZDOB: [facility] SupportSpaceLehigh Valley Hospital[facility] [id number] Repository Number: [address] [id number] [place], [place] Date:2018-01-17 [address]Zgl: (860) 5856-21-12Wtut Name:MENDING CARRIER Box (HP)Tel: (000) 30632EQUBYEAHE, [place] 000-0000 (WP) [address]UQ: 01/25/2018 JENNIFER J DEITZDOB: Primary JENNIFER [facility] E Insurance:MEDICARE DEITZDOB: [facility] BPolicy Number: [id number] Repository [place] [address]Vru: (862) [id number] [address] (HP) Date:2018-01-23 [place] 8819-83-81Cqzj [address]Jmh: (330) Name:[facility] Administrators LLCPO (HP)Tel: (000) [address] [address]Mgffdvqnb, 000-0000 (WP) [place] [address]OK: 01/25/2018 Secondary JENNIFER J [facility] Insurance:HUMANA DEITZDOB: [facility] SupportSpaceLehigh [facility] [id number] Repository Number: [address] [id number] [facility], [place] Date:2018-01-23 [address]Oib: (330) 5367-93-52Grqx 683-2006 Name:MENDING CARRIER Box (HP)Tel: (000) [address]GUJXPPSEK, [place] 000-0000 (WP) [address]DQ: 01/23/2018 JENNIFER J DEITZDOB: Primary JENNIFER J [facility] E Insurance:MEDICARE DEITZDOB: [facility], PART [facility] Number: [id number] Repository [place] [address]Nle: (330 [id number] [address] (HP) Date:2018-01-23 - [place] 8294-50-11Zhpb [address]Uuv: (330) Name:[facility] -2005 Administrators LLCPO (HP)Tel: (000) [address] [address]Witggbrvo, 000-0000 (WP) [place] [address]ZR: 01/23/2018 Secondary JENNIFER J [facility] Insurance:HUMANA DEITZDOB: [facility] SupportSpaceLehigh [facility] Hospital[facility] [id number] Repository Number: [address] [id number] [facility] [place] Date:2018-01-23 [address]Xdm: 330 8780-64-33Lhrg Name:MENDING CARRIER Box (HP)Tel: (000) 6[address]QXKYEMSWV, [place] 000-0000 (WP) [address]NA: 01/12/2018 JENNIFER J DEITZDOB: Primary JENNIFER J [facility] E Insurance:MEDICARE DEITZDOB: [facility] BPolicy Number: [id number] Repository [place] [address]Ryj: (600) [id number] [address] (HP) Date:2018-01-11 [place], [place] 7292-79-92Pclw [address]Lww: (330) Name:[place] [id number] Administrators LLCPO (HP)Tel: (000) [address] [address]Lahhntodv, 000-0000 (WP) [place] [address]VQ: 01/12/2018 Secondary JENNIFER J [facility] Insurance:HUMANA DEITZDOB: [facility] [id number] Repository Number: 7 E SONI[address] [id number] [facility] [place] Date:2018-01-11 [address]Jmm: (446) 0864-22-37Gpmv 683-2006 Name:MENDING CARRIER Box (HP)Tel: (000) 84657TQXAZKDUH, [place] 000-0000 (WP) [address]WR: 01/09/2018 JENNIFER J [facility]ZDOB: [facility] Insurance:MEDICARE DEITZDOB: [facility] BPolicy Number: [id number] Repository [place] [address]Lvq: (330) [id number] [address] () Date:2018-01-09 [place] 6725-07-64Crdz [address]Jzl: (330) Name:[facility] Administrators LLCPO (HP)Tel: (000) [address] [address]446Cmdkdfsnf, 000-0000 (WP) [place] [address]BO: 01/09/2018 Secondary JENNIFER J [facility] Insurance:HUMANA DEITZDOB: [facility] [id number] Repository Number: [address] [id number] [facility] [place] Date:2018-01-09 [address]Lmg: 330 5759-27-47Hegx 683-2006 Name:MENDING CARRIER Box (HP)Tel: (000) 14230RAWJMAIBXBeam. [place] 000-0000 (WP) [address]ZC: 12/29/2017 JENNIFER J DEITZDOB: Primary JENNIFER J [facility] E Insurance:MEDICARE DEITZDOB: [facility] BPolicy Number: [id number] Repository [place] [address]Zpj: (971) [id number] [address] (HP) Date:2017-12-28 [place], [place] 3437-19-78Aslg [address]Eaq: (330) Name:[facility] Administrators LLCPO (HP)Tel: (000) [address] [address]Wiceunksv, 000-0000 (WP) [place] [address]GV: 12/29/2017 Secondary JENNIFER J [facility]: [facility] [id number] Repository Number: [address] [id number] [place] Date:2017-12-28 [address]Ucz: (893) 6768-44-52Shhq 683-2006 Name:MENDING CARRIER Box (HP)Tel: (000) [address]GUAYYUHJW, [place] 000-0000 () [address]ZP: 12/26/2017 JENNIFER J DEITZDOB: Primary JENNIFER J [facility] E Insurance:MEDICARE DEITZDOB: [facility] BPolicy Number: [id number] Repository [place] [address]Bky: (330) [id number] [address] (HP) Date:2017-12-26 [place], [place] 0383-33-45Wlco [address]Vqk: (330) Name:[facility] Administrators LLCPO (HP)Tel: (000) [address] 027[address]Ijzcxqxhx, 000-0000 (WP) [place] [address]RP: 12/26/2017 Secondary JENNIFER J [facility] Insurance:HUMANA DEMETROHEALTH PAR[facility] MEDICAL CENTERDOB: [facility] [id number] Repository Number: [address] [id number] [place] Date:2017-12-26 [address]Eev: 330 1809-31-88Bskw Name:MENDING CARRIER Box (HP)Tel: (000) [address]HEWIEAMNS, [place] 000-0000 (WP) [address]OV: 12/11/2017 JENNIFER J DEITZDOB: Primary JENNIFER J [facility] E Insurance:MEDICARE DEITZB: [facility] APolicy Number: [id number] Repository [place] [address]Qqx: 330) [id number] [address] (HP) Date:2017-12-11 [place], [place] 3503-29-33Ydrf [address]Whr: (330) Name:[facility] [address] ()Tel: (000) 640[address]Ddpstlcp, [place] 000-0000 (WP) [address]MM: 12/11/2017 Secondary [facility] Insurance:MEDICARE DEITZDOB: [facility] PART BPolicy Number: [id number] Repository [id number] [address] Date:2017-12-11 [place] 3950-57-40Hexp [address]Sog: (330) Name:[facility] Administrators LLCPO (HP)Tel: (000) [address]Zfrlytfof, 000-0000 (WP) [place] [address]GI: 12/11/2017 Tertiary JENNIFER [facility] Insurance:HUMANA DEITZDOB: [facility] [id number] Repository Number: [address] [id number] [facility] [place] Date:2017-12-11 [address]Flm: (427) 0482-60-02Dmba Name: (HP) (WP) 12/11/2017 JENNIFER DEITZDOB: Primary JENNIFER DEITZDOB: [facility] E Insurance:MEDICARE [id number] [facility] APolicy Number: [address] Repository [place] [address]Btu: (330) [id number] [place], [place] (HP) Date:2017-12-11 [address]Vdd: (330) 0054-52-68Iqyb 683-2006 Name:Natasha DIXON ()Tel: (000) [address] 000-0000 (WP) 507[place], [place] [address]ZF: 12/11/2017 Secondary JENNIFER DEITZDOB: [facility] Insurance:MEDICARE [id number] [facility] BPolicy Number: [address] Repository [id number] [place] Date:2017-12-11 [address]Hxl: (330) 4442-87-19Xvcb 683-2006 Name:VIVIAN ()Tel: (000) Administrators LLCPO 000-0000 (WP) [address] [place] [address]LI: 12/11/2017 Tertiary JENNIFER DEITZDOB: [facility] Insurance:HUMANA [id number] [facility] [address] Repository Number: [place] [id number] [address]Wcn: (330) Date:2017-12-115034-93-94Tpxl ()Tel: (000) Name:MENDING CARRIER [address] 000-0000 (WP) [address] [place] [address]IO: 12/01/2017 JENNIFER J DEITZDOB: Primary JENNIFER J [facility] E Insurance:MEDICARE DEITZDOB: [facility] APolicy Number: [id number] Repository [place] [address]Bqy: (330) [id number] [address] () Date:2017-12-01 [place] 6949-65-16Yyiv [address]Vwz: (330) Name:MMail Code [address] Box (HP)Tel: (000) 324555Kkdpfioi, [place] 000-0000 (WP) [address]XY: 12/01/2017 Secondary JENNIFER J [facility] Insurance:MEDICARE DEITZDOB: [facility] PART BPolicy Number: [id number] Repository [id number] [address] Date:2017-12-01 - [place] 2726-61-48Ltlu [address]Sdc: (330) Name:[facility] Administrators LLCPO (HP)Tel: (000) [address]Ainljaadv, 000-0000 (WP) [place] [address]CL: 12/01/2017 Tertiary JENNIFER J [facility] Insurance:[facility] DEITZDOB: [facility] [id number] Repository Number: [address] [id number] [place] Date:2017-12-01 [address]Yyj: (330) 7384-55-77Wgfu Name: (HP) (WP) 12/01/2017 JENNIFER DIETZDOB: Primary JENNIFER DIETZDOB: [facility] E Insurance:MEDICARE [id number] [facility] APolicy Number: [address] Repository [place] [address]Fdf: (330) [id number] [place], [place] (HP) Date:2017-12-01 87[address]Zlu: (330) 7755-26-67Rxhl Name:MMail Code AG (HP)Tel: (000) [address] 000-0000 (WP) [address]49[address]Gdrdiawa, [place] [address]XX: 12/01/2017 Secondary JENNIFER DIETZDOB: [facility] Insurance:MEDICARE [id number] [facility] PART BPolicy Number: [address] Repository [id number] [place] Date:2017-12-01 [address]Mhb: (330) 5270-69-45Ehxf 683-2006 Name:[facility] ()Tel: (000) Administrators LLCPO 000-0000 (WP) [address] [address]Tecnbermr, [place] [address]SO: 12/01/2017 Tertiary JENNIFER DIETZDOB: [facility] Insurance:HUMANA [id number] [facility] [address] Repository Number: [place], [place] [id number] [address]Gbj: (330) Date:2017-12-018097-54-04Pzjk ()Tel: (000) Name:MENDING CARRIER [address] 000-0000 (WP) [address] [place] [address]KN: 12/01/2017 JENNIFER J DEITZDOB: Primary JENNIFER J [facility] E Insurance:MEDICARE DEITZDOB: [facility] BPolicy Number: [id number] Repository [place] [address]Pdj: (330 [id number] [address] () Date:2017-12-01 [place] 0431-67-36Xwdg [address]Abg: (330) Name:[facility] Administrators LLCPO (HP)Tel: (000) [address] [address]Rnalilhub, 000-0000 (WP) [place] [address]TV: 12/01/2017 Secondary JENNIFER J [facility] Insurance:HUMANA DEITZDOB: [facility] [id number] Repository Number: [address] [id number] [place] Date:2017-12-01 [address]Pyl: 330) 9340-42-69Sdeh 683-2006 Name:MENDING CARRIER Box (HP)Tel: (000) [address]QTHQI[address]BVI[address] [place] [address] 000-0000 (WP) [address]QE: 11/30/2017 JENNIFER J DEITZDOB: Primary JENNIFER J [facility] E Insurance:SELF [facility]ZDOB: [facility] Number: [id number] Repository [place] [address]Nfq: (330) Effective [address] (HP) Date:2017-11-22 [place], [place] [id number] Name:8 [id number]: (HP) (WP) 11/30/2017 [facility]:MEDICARE DEITZDOB: [facility] PART BPolicy Number: [id number] Repository [id number] [address] Date:2017-11-22 [facility], [place] [id number] [address]Ftr: (330) Name:[facility] Administrators LLCPO (HP)Tel: (000) [address]Altvupduz, 000-0000 (WP) [place] [address]RF: 11/30/2017 Tertiary [facility] Insurance:HUMANA DEITZDOB: [facility] [id number] Repository Number: [address] [id number] [place], [place] Date:2017-11-22 [address]Kmn: (330 [id number] Name:MENDING CARRIER Box (HP)Tel: (000) [address]41VHIGBVUSC, [place] 000-0000 (WP) [address]JR: 11/12/2017 [facility] E Insurance:MEDICARE DEITZDOB: [facility] APolicy Number: [id number] Repository [place] [address]Pqm: (330) [id number] [address] (HP) Date:2017-11-12 [place], [place] [id number] [address]Ico: (330) Name:MMail Code 600PO Box (HP)Tel: (000) [id number], [place] 000-0000 (WP) [address]YP: 11/12/2017 Secondary JENNIFER J [facility] Insurance:MEDICARE DEITZDOB: [facility] PART BPolicy Number: [id number] Repository [id number] [address] Date:2017-11-12 [place], [place] [id number] [address]Njh: (330) Name:[facility] Administrators LLCPO (HP)Tel: (000) [address] [address]Japthfcry, 000-0000 (WP) [place] [address]DU: 11/12/2017 Tertiary JENNIFER J [facility] [id number] Repository Number: [address] [id number] [facility] [place] [facility] [place] Date:2017-11-12 [address]Ros: (330) [id number] 683-2006 Name:MENDING CARRIER Box (HP)Tel: 000) [id number], [place] 000-0000 (WP) [address]NB: 11/11/2017 [facility]ENNIFER J [facility]ICARE DEITZDOB: [facility], [facility] BPolicy Number: [id number] Repository [place] [address]Wid: (330) [id number] [address] () Date:2017-11-11 [place], [place] 3820-82-80Jtpr [address]Opg: (330) Name:[facility] Administrators LLCPO (HP)Tel: (000) [address] [address]Saovndqop, 000-0000 (WP) [place] [address]HD: 11/11/2017 Secondary JENNIFER [facility] Insurance:HUMANA DEITZDOB: [facility] [id number] Repository Number: [address] [id number] [facility] [place] [facility] [place] Date:2017-11-11 [address]Wie: (330) [id number] 683-2006 Name:MENDING CARRIER Box (HP)Tel: (000) 65873ETJSRTFGD, [place] 000-0000 (WP) [address]XC: 11/06/2017 JENNIFER J DEITZDOB: Primary JENNIFER J [facility] E Insurance:MEDICARE DEITZDOB: [facility] BPolicy Number: [id number] Repository [place] [address]Yap: [phone] [id number] [address] (HP) Date:2017-10-31 [place], [place] [id number] [address]Bho: [phone]) Name:[facility] Administrators LLCPO (HP)Tel: (000) Box , 000-0000 (WP) [place] [address]MK: 11/06/2017 Secondary [facility] [id number] Repository Number: [facility] [id number] [place], [place] Date:2017-10-31 [address]Uoc: [phone] [id number] Name:MENDING CARRIER Box (HP)Tel: (000) 48364ZNYHTJKDM, [place] 000-0000 () [address]KF: 10/07/2017 JENNIFER J [facility]DOB[facility]ICARE DEITZDOB: [facility] BPolicy Number: [id number] Repository [place] [address]Azl: (100) [id number] [address] (HP) Date:2017-10-07 [place], [place] [id number] [id number]: ([phone]) Name:[facility] Administrators LLCPO (HP)Tel: (000) Box , 000-0000 (WP) [place] [address]UC: 10/07/2017 Secondary JENNIFER J [facility] Insurance:HUMANCOX NORTHB: [facility] [id number] Repository Number: 7 E SONIYA [id number] [facility] [place] Date:2017-10-07 [address]Yun: [phone] [id number] Name:MENDING CARRIER Box (HP)Tel: (000) [address]HKPINYYYM, [place] 000-0000 (WP) [address]LS: 08/31/2017 JENNIFER J DEITZDOB: Primary JENNIFER J [facility] E Insurance:MEDICARE DEITZDOB: [facility], PART BPolicy Number: [id number] Repository [place] [address]Its: [phone] [id number] 7 [address] (HP) Date:2017-08-29 [facility] [place] [place] [id number] [address]Tvd: ([phone]) Name:VIVIAN Administrators LLCPO (HP)Tel: (000) [address] 344[address]Chvbxwjnf, 000-0000 (WP) [place] [address]CW: 08/31/2017 Secondary [facility] Insurance:HUMANA DEITZDOB: [facility] [id number] Repository Number: 7 [address] [id number] [place], [place] Date:2017-08-29 [address]Ihn: [phone] [id number] Name:MENDING CARRIER Box (HP)Tel: (000) [address]LETRNUPBQ, [place] 000-0000 (WP) [address]EU: 08/16/2017 JENNIFER J DEITZDOB: Primary JENNIFER J [facility] Insurance:MEDICARE [facility]DOB[facility] BPolicy Number: [id number] Repository [place] [address]Jhb: [phone] [id number] 7 [address] (HP) Date:2017-08-16 [place], [place] [id number] [address]Dsg: ([phone]) Name:[facility] Administrators LLCPO ()Tel: (000) [address] [address]Pvhouqhef, 000-0000 (WP) [place] [address]HU: 08/16/2017 Secondary JENNIFER J [facility] Insurance:HUMANA DEITZDOB: [facility] [id number] Repository Number: 7 [address] [id number] [place], [place] Date:2017-08-16 [address]Qaf: [phone] [id number] [phone] Name:MENDING CARRIER Box ()Tel: (000) 43780MHNXJYWNX, [place] 000-0000 (WP) [address]YO: 08/14/2017 JENNIFER J DEITZDOB: Primary JENNIFER J [facility] E Insurance:MEDICARE DEITZDOB: [facility] BPolicy Number: [id number] Repository [place] [address]Etf: [phone]) [id number] 7 [facility] () Date:2017-01-21 [place], [place] [id number] [address]Zox: ([phone]) Name:[facility] Administrators LLCPO ()Tel: (000) [address] [address]Ewychjpmn, 000-0000 (WP) [place] [address]QY: 08/14/2017 Secondary JENNIFER J [facility] Insurance:HUMANA DEITZDOB: [facility] [id number] Repository Number: 7 [facility] [id number] [place], [place] Date:2017-01-21 [address]Eur: [phone] [id number] [phone] Name:MENDING CARRIER Box (HP)Tel: (000) 04266ITZMLDWRA, [place] 000-0000 (WP) [address]CL: 07/30/2017 JENNIFER J DEITZDOB: Primary JENNIFER [facility] E Insurance:MEDICARE DEITZDOB: [facility] APolicy Number: [id number] Repository [place] [address]Qwi: 330 [id number] 7 [address] -2005 (HP) Date:2017-01-21 [place], [place] [id number] [address]Oty: ([phone]) Name:MMail Code ZACK 600PO Box (HP)Tel: ([phone], [place] 000-0000 (WP) [address]TE: 07/30/2017 Secondary [facility] Health Insurance:MEDICARE DEITZDOB: [facility] PART BPolicy Number: [id number] Repository [id number] 7 [address] Date:2017-01-21 [place], [place] [id number] [address]Hpq: ([phone]) Name:[facility] Administrators LLCPO (HP)Tel: (000) [address] [address]Rcdceybjm, 000-0000 (WP) [place] [address]SJ: 07/30/2017 Tertiary [facility] Health Insurance:HUMANA DEITZDOB: [facility] COMMERCIALPolicy [id number] Repository Number: [address] [id number] [place], [place] Date:2017-01-21 [address]Xzt: ([phone] [id number] Name:MENDING CARRIER Box (HP)Tel: (000) 9[address]QMIKTQOHZ, [place] 000-0000 (WP) [address]AH:
== END ==
PROVIDERS: Family Provider Preventive Medicine Occupational Medicine; PCP Preventive Medicine Occupational Medicine; Referring Provider Internal Medicine Cardiovascular Disease; Visit Provider Internal Medicine Cardiovascular Disease
DX: I34.0 Nonrheumatic mitral (valve) insufficiency (principal); I34.2 Nonrheumatic mitral (valve) stenosis; I50.9 Heart failure, unspecified; J90 Pleural effusion, not elsewhere classified
CPT/HCPCS: 71046

== ENCOUNTER 2019-04-17 17:02 | Inpatient (IN) | payer MEDICARE, OTHER, SELFPAY ==
[2018-09-24 15:09] VITALS: BMI 21.9
[2019-04-17 17:03] VITALS: BP 119/62; PULSE 77; RESP 20; TEMP 37.2; O2SAT 97; BMI 26.4
--- NOTE | 2019-04-17 17:20 | RAD_ITS ---
STUDY: X-RAY CHEST REASON FOR EXAM: Female, 73 years old. Short of breath TECHNIQUE: Single AP portable view of the chest. COMPARISON: Prior study of 08/01/2018 FINDINGS: There is a left-sided bipolar pacemaker. There is a limited inspiration. There is a small right-sided effusion. The heart size is within normal limits. Status post cardiac valvular replacement changes are noted. Status post median sternotomy changes are evident. There is an atrial appendage clip. Normal mediastinum and billy. Normal visualized pulmonary arteries. There are calcified plaques of the aortic arch. There is demineralization of the osseous structures. Normal visualized ribs, clavicles, and shoulders. There is no demonstrated abnormality of the visualized soft tissue structures of the upper abdomen. RAD/Chest 1 View (Portable) IMPRESSION: 1. Small right-sided effusion. 2. Limited inspiration. 3. Status post cardiac valvular replacement changes. An atrial appendage clip is seen. 4. There are calcified plaques of the aortic arch. 5. There is a bipolar left-sided pacemaker. Electronically Signed: Willie Van MD at 17:51 EDT , Service support ,
--- NOTE | 2019-04-17 17:20 | EKG12_ITS ---
Test Reason : CP Blood Pressure : / mmHG Vent. Rate : 083 BPM Atrial Rate : 098 BPM P-R Int : 000 ms QRS Dur : 162 ms QT Int : 460 ms P-R-T Axes : 000 -81 049 degrees QTc Int : 540 ms Junctional rhythm Left axis deviation Right bundle branch block Septal infarct (cited on or before 04-JUL-2018), age undetermined Abnormal ECG Confirmed by KEISHA SIMS, HIGINIO ([id number]), editorial assistant YUDI DE LOS SANTOS ([id number]) on 04/24/2019 9:28:14 A M Referred By: Luis Daniel Lee Confirmed By:CHARMAINE VALDES MD
--- NOTE | 2019-04-17 17:23 | ED.DCSUM_ITS ---
History of Present Illness Chief Complaint: Shortness of Breath Detail of Chief Complaint: Fluid on lungs, chest pressure Informant: Patient, Family Onset: Days Current Severity: Mild Maximum Severity: Moderate Narrative: Patient presents to the emergency room stating her family doctor told her she has fluid on the lungs and needs to go to the hospital. She has had back pain for the past week and a half with increasing shortness of breath for the past 1 week. She was seen in the emergency room at [facility] on Monday. She was given pain medication for her back. She saw her primary care physician on Monday who had lab work drawn. She received a phone call today stating that she had fluid on her lungs and needed to go to the hospital. She apparently had been on 20 mg of Lasix but was started again on 40 mg of Lasix a day 2 days ago. Patient does report some chest pressure that has been ongoing for the past couple of days. - Past Medical History (1) CHF (congestive heart failure) Status: Chronic (2) Paroxysmal atrial fibrillation Status: Chronic (3) Presence of permanent cardiac pacemaker Status: Chronic Comment: [employer] (4) Right bundle branch block (RBBB) Status: Chronic (5) Secondary pulmonary arterial hypertension Status: Chronic (6) Sick sinus syndrome due to sinoatrial node dysfunction Status: Chronic (7) H/O mitral valve replacement with cardiopulmonary bypass Status: Resolved Comment: CABG x 1 SVG-PDA , MVR w/ 25 mm tissue valve and R&L cryo-maze procedure w/ left atrial clip 11/20/17 Past Medical History - Allergies and Home Meds Allergies/Adverse Reactions: Allergies simvastatin [From Zocor] Allergy (Verified 04/17/19 17:03) Unknown Primary Care Physician: Gianni Nava DO [Primary Care Provider] - Prior records reviewed: Yes Past Medical History: - - Reviewed Surgical History: cholecystectomy, coronary bypass surgery, - - Mitral valve replacement, and permanent pacemaker. Lives: With Family Smoking Status: Former smoker - Family History Maternal Family History: Family History (Last Reviewed 09/24/18 @ 15:21 by Ebony Andersen) Mother Diabetes Heart disease Hypertension Father Heart disease Hypertension Diabetes CVA (cerebral vascular accident) Family History: Reports: Diabetes, Heart Disease, Hypertension Paternal Family History: Family History (Last Reviewed 09/24/18 @ 15:21 by Ebony Nolt) Mother Diabetes Heart disease Hypertension Father Heart disease Hypertension Diabetes CVA (cerebral vascular accident) Family History: Reports: Cancer, Diabetes, Heart Disease, Hypertension, Stroke Review of Systems General: Denies: Chills, Fever Eyes: Denies: Visual changes - bilaterally ENT: Denies: Bilateral ear pain Cardiovascular: Reports: Chest pain Respiratory: Reports: Dyspnea, Cough - Mild cough Gastrointestinal: Denies: Abdominal pain, Nausea, Vomiting Genitourinary: Denies: Dysuria Musculoskeletal: Reports: Back pain. Denies: Neck pain, Extremity Pain Skin: Denies: Rash Neurological: Denies: Headache Allergy: Denies: Uticaria Physical Exam Vital Signs/Narrative: Vital Signs Temp Pulse Resp BP Pulse Ox 04/17/19 17:03 99 F 77 20 H 119/62 97 Inital Vital Signs reviewed: Yes General: Well nourished Head: Normocephalic ENT: Moist mucous membranes Neck: Supple Cardiovascular: Regular rate, Regular rhythm Respiratory: Diminished, - - Coarse breath sounds bilateral bases. Abdomen: Soft, Nontender Extremities: Edema - 1+ bilateral lower extremity edema. Skin: Normal color Neurological: Alert, Oriented x3 Psychological: Normal affect Diagnostic/Tx/Re-eval Impressions Chest X-Ray 04/17/19 17:20 IMPRESSION: 1. Small right-sided effusion. 2. Limited inspiration. 3. Status post cardiac valvular replacement changes. An atrial appendage clip is seen. 4. There are calcified plaques of the aortic arch. 5. There is a bipolar left-sided pacemaker. Electronically Signed: Willie Van MD at 17:51 EDT , Service support , 04/17/19 17:20 Chest 1 View (Portable) [RAD] Stat Laboratory Results 04/17/19 04/17/19 04/17/19 17:31 17:31 17:31 WBC 7.5 RBC 3.15 L Hgb 9.0 L Hct 30.2 L MCV 95.9 MCH 28.6 MCHC 29.8 L RDW Std Deviation 53.2 H RDW Coeff of Dom 15.3 H Plt Count 262 MPV 9.5 Immature Gran % (Auto) 0.700 Neut % (Auto) 74.2 H Lymph % (Auto) 12.2 L [place] % (Auto) 8.4 Eos % (Auto) 3.6 Baso % (Auto) 0.9 Absolute Neuts (auto) 5.6 Absolute Lymphs (auto) 0.92 Nucleated RBC % 0 Sodium 140 Potassium 4.3 Chloride 105 Carbon Dioxide 27.0 Anion Gap 8 BUN 38 H Creatinine 1.98 H Estim Creat Clear Calc 17.63 Est GFR (MDRD) Af Amer 32 L Est GFR (MDRD) Non-Af 26 L BUN/Creatinine Ratio 19.2 Glucose 285 H Calcium 8.1 L Troponin I < 0.015 B-Natriuretic Peptide 446.6 H - EKG Initial EKG Interpretation: Atrial Fibrillation - A. fib at 83 with right bundle branch block. This is unchanged compared to prior study from July 2018. - Medical Decision Making I did review patient's labs from [place] on the . Her BNP at that time was 5849. They do use a different scale than our lab uses. Patient's x-ray does appear wet to me. She was given 40 mg of Lasix here. I will speak with hospitalist regarding overnight observation for diuresis. ED Disposition - Plan for ED Patient: Disposition: Acute Care Hospital [facility] Diagnosis: CHF (congestive heart failure) Referrals: Gianni Nava DO [Primary Care Provider] -
[2019-04-17 17:41] LABS: Absolute Lymphocyte Count 0.92 X10^3/uL (0.83-4.51); Absolute Neutrophil Count 5.6 X10^3/uL (2.0-7.7); Basophil# 0.07 X10^3/uL; Basophil% 0.9 % (0-1); Eosinophil# 0.27 X10^3/uL; Eosinophils% 3.6 % (0-5); Hematocrit 30.2 % (37-47); Lymphocyte # 0.92 X10^3/ul (4.0); Lymphocyte % 12.2 % (19-41); Mean Corp Hgb Conc 29.8 g/dL (32-36); Mean Corpuscular Hgb 28.6 pg (27.0-32.0); Mean Corpuscular Volume 95.9 fL (81-99); Mean Platelet Vol. 9.5 fl (6.2-12.0); Monocyte# 0.63 X10^3/uL; Monocyte% 8.4 % (0-10); NRBC Flagged by Analyzer 0 % (0-5); Neutrophil # 5.58 X10^3/uL (2.7-7.7); Neutrophil % 74.2 % (47-70); Platelet Count 262 K/mm3 (150-450); RBC Distribution Width CV 15.3 % (11.6-14.6); RBC Distribution Width SD 53.2 fl (35.1-43.9); Red Blood Count 3.15 M/mm3 (4.2-5.4); White Blood Count 7.5 K/mm3 (4.4-11.0)
[2019-04-17 17:58] LABS: Anion Gap 8 (5-15); BUN 38 mg/dL (7-18); BUN/Creat Ratio 19.2 RATIO (10-20); Calcium,Total 8.1 mg/dL (8.5-10.1); Chloride 105 mmol/L (98-107); Creatinine, Serum 1.98 mg/dL (0.55-1.02); EST Glomerular Filtration Rate 26 mL/min (>60); Est Glom Filt Rate - Afr Amer 32 mL/min (>60); Estimated Creatinine Clearance 17.63 ml/min; Glucose 285 mg/dL (74-106); Potassium 4.3 mmol/L (3.5-5.1); Sodium Level 140 mmol/L (136-145)
[2019-04-17 18:05] VITALS: BP 116/52; PULSE 85; RESP 19; O2SAT 97
[2019-04-17] MEDS: Furosemide 40 MG/4 ML Vial IV (18:06)
[2019-04-17 18:07] LABS: BNP,B-Type NATRIURETIC PEPTIDE 446.6 pg/mL (0-100)
[2019-04-17 18:24] VITALS: O2SAT 98
--- NOTE | 2019-04-17 19:05 | ED.RN ---
PURWICK CATHETER PLACED FOR IV LASIX AND FREQ
--- NOTE | 2019-04-17 19:38 | HP.PCM_ITS ---
Problem List (1) CHF (congestive heart failure) Status: Chronic (2) Sick sinus syndrome due to sinoatrial node dysfunction Status: Chronic (3) Pericarditis Status: Resolved (4) Non-rheumatic mitral valve stenosis Status: Chronic Comment: CABG x 1 SVG-PDA , MVR w/ 25 mm tissue valve and R&L cryo-maze procedure w/ left atrial clip 11/20/17 (5) Non-rheumatic mitral regurgitation Status: Chronic Comment: CABG x 1 SVG-PDA , MVR w/ 25 mm tissue valve and R&L cryo-maze procedure w/ left atrial clip 11/20/17 (6) Secondary pulmonary arterial hypertension Status: Chronic (7) Non-rheumatic tricuspid valve insufficiency Status: Chronic (8) Right bundle branch block (RBBB) Status: Chronic (9) H/O mitral valve replacement with cardiopulmonary bypass Status: Chronic Comment: CABG x 1 SVG-PDA , MVR w/ 25 mm tissue valve and R&L cryo-maze procedure w/ left atrial clip 11/20/17 (10) Presence of permanent cardiac pacemaker Status: Chronic Comment: [employer] (11) Atherosclerosis of coronary artery of wainwright heart without angina pectoris Status: Chronic Qualifiers: Coronary Disease-Associated Artery/Lesion type: [place] artery Qualified Code(s): I25.10 - Atherosclerotic heart disease of [place] coronary artery without angina pectoris Comment: CABG x 1 SVG-PDA , MVR w/ 25 mm tissue valve and R&L cryo-maze procedure w/ left atrial clip 11/20/17 (12) Acute on chronic diastolic (congestive) heart failure Status: Chronic (13) Paroxysmal atrial fibrillation Status: Chronic (14) Recurrent pleural effusion on right Status: Chronic History of Present Illness Date of Admission: 04/17/19 Chief Complaint: Shortness of breath worse for 2 to 3 days The patient is a 73 year old F with multiple comorbidities including coronary artery disease status post CABG 1 vessel and mitral valve replacement, bioprosthetic valve, paroxysmal A. fib on Eliquis came to ER for progressive worsening of shortness of breath for 2 to 3 days. Prior to that patient feeling weak, dyspnea on exertion for about 5 to 6 days and had back pain for which she went to [place] [facility] where it was presumed more musculoskeletal pain or discharge. Subsequently patient saw PCP and had some labs done and today she was told to go to ER for elevated BNP. This patient complained of chest heaviness, localized without radiation with difficulty in breathing. Denies near syncope or syncope. She was last admitted in July 2018 for acute on recurrent right-sided pleural effusion, acute diastolic heart failure and acute kidney injury and had about 1100 mL drained which came out to be transudative. Malignant cells negative. Culture did not grow organism. [] In ED, basic blood work shows mild anemia, H&H 9.0/30, BUN/creatinine 38/1.98 on baseline creatinine 2.02. First troponin negative. BNP 446. EKG shows paced rhythm at 83 bpm with LAD and right bundle branch block. Chest x-ray shows small right pleural effusion with limited inspiration and rotated film. Patient follows Dr. avilez and had last pacemaker check in January 2019 which reported as 8 AT/AF episodes, 0.1% of total time with no VHR episodes since November 2018. Past Medical History Past Medical History (Chronic Problems): Chronic Problems (Last Updated 08/07/18 @ 15:53 by Phuong Flores) CHF (congestive heart failure) (Chronic) Sick sinus syndrome due to sinoatrial node dysfunction (Chronic) Non-rheumatic mitral valve stenosis (Chronic) CABG x 1 SVG-PDA , MVR w/ 25 mm tissue valve and R&L cryo-maze procedure w/ left atrial clip 11/20/17 Non-rheumatic mitral regurgitation (Chronic) CABG x 1 SVG-PDA , MVR w/ 25 mm tissue valve and R&L cryo-maze procedure w/ left atrial clip 11/20/17 Secondary pulmonary arterial hypertension (Chronic) Non-rheumatic tricuspid valve insufficiency (Chronic) Right bundle branch block (RBBB) (Chronic) H/O mitral valve replacement with cardiopulmonary bypass (Chronic 11/20/17) CABG x 1 SVG-PDA , MVR w/ 25 mm tissue valve and R&L cryo-maze procedure w/ left atrial clip 11/20/17 Presence of permanent cardiac pacemaker (Chronic 06/2018) [employer] Atherosclerosis of coronary artery of wainwright heart without angina pectoris (Chronic) CABG x 1 SVG-PDA , MVR w/ 25 mm tissue valve and R&L cryo-maze procedure w/ left atrial clip 11/20/17 Acute on chronic diastolic (congestive) heart failure (Chronic) Paroxysmal atrial fibrillation (Chronic) Recurrent pleural effusion on right (Chronic) Medical History: Medical History (Last Updated 08/07/18 @ 15:53 by Phuong Flores) Sick sinus syndrome due to sinoatrial node dysfunction (Chronic) I49.5 Pericarditis (Chronic) I31.9 Non-rheumatic mitral valve stenosis (Chronic) I34.2 CABG x 1 SVG-PDA , MVR w/ 25 mm tissue valve and R&L cryo-maze procedure w/ left atrial clip 11/20/17 Non-rheumatic mitral regurgitation (Chronic) I34.0 CABG x 1 SVG-PDA , MVR w/ 25 mm tissue valve and R&L cryo-maze procedure w/ left atrial clip 11/20/17 Secondary pulmonary arterial hypertension (Chronic) I27.21 Non-rheumatic tricuspid valve insufficiency (Chronic) I36.1 Right bundle branch block (RBBB) (Chronic) I45.10 Atherosclerosis of coronary artery of wain[place] heart without angina pectoris (Chronic) I25.10 CABG x 1 SVG-PDA , MVR w/ 25 mm tissue valve and R&L cryo-maze procedure w/ left atrial clip 11/20/17 Acute on chronic diastolic (congestive) heart failure (Chronic) I50.33 Paroxysmal atrial fibrillation (Chronic) I48.0 Recurrent pleural effusion on right (Acute) J90 (HFpEF) heart failure with preserved ejection fraction I50.30 COPD (chronic obstructive pulmonary disease) J44.9 CVA (cerebral vascular accident) I63.9 Chronic kidney disease, stage 3 N18.3 Dysphagia R13.10 Iron deficiency anemia D50.9 Type 2 diabetes mellitus E11.9 Sepsis A41.9 Allergies simvastatin [From Zocor] Allergy (Verified 04/17/19 17:03) Unknown Home Medications: Ambulatory Orders Medication Instructions Recorded Apixaban [Eliquis] 2.5 mg PO BID 07/04/18 Insulin Lispro [Humalog] See Protocol SQ 4X/DAY 07/04/18 Furosemide [Lasix] 40 mg PO DAILY tab 07/24/18 ipratropium-albuterol 0.5 mg-3 3 ml INHALATION 4X/DAY ml 09/24/18 mg(2.5 mg base)/3 mL nebulization soln metoprolol succinate ER 25 mg 25 mg PO DAILY 09/24/18 tablet,extended release 24 hr Amiodarone HCl 200 mg PO DAILY 04/17/19 Cholecalciferol (Vitamin D3) 2,000 unit PO DAILY 10/09/19 [Vitamin D3] Cyanocobalamin (Vitamin B-12) 1,000 mcg PO DAILY 04/17/19 [B-12] Fluticasone 110 Mcg [Flovent (SP)] 2 puff INHALATION BID 04/17/19 Insulin Glargine,Hum.rec.anlog 16 unit SQ QHS 04/17/19 [Toujeo Solostar] Insulin Lispro [Humalog KwikPen] 5 unit SQ TIDCM 04/17/19 Tiotropium [place] [Spiriva] 2 puff INHALATION DAILY 04/17/19 Surgical History: Surgical History (Last Reviewed 09/24/18 @ 15:21 by Ebony Andersen) H/O mitral valve replacement with cardiopulmonary bypass (Resolved) Onset Date: 11/20/17 Z95.2 CABG x 1 SVG-PDA , MVR w/ 25 mm tissue valve and R&L cryo-maze procedure w/ left atrial clip 11/20/17 Presence of permanent cardiac pacemaker (Chronic) Onset Date: 06/2018 Z95.0 [employer] History of maze procedure Onset Date: 11/20/17 Z98.890 Cryo Maze w/ left atrial clip for atrial fib History of thoracentesis Onset Date: 07/23/18 Z98.890 07/11/18, 07/12/18, 07/23/18 Hx of cholecystectomy Z90.49 Surgical History: cholecystectomy, coronary bypass surgery, - - Mitral valve replacement, and permanent pacemaker. Lives: With Family Smoking Status: Former smoker - *Family History Maternal Family History: Family History (Last Reviewed 09/24/18 @ 15:21 by Ebony Andersen) Mother Diabetes Heart disease Hypertension Father Heart disease Hypertension Diabetes CVA (cerebral vascular accident) History Items: Diabetes, Heart Disease, Hypertension Paternal Family History: Family History (Last Reviewed 09/24/18 @ 15:21 by Ebony Andersen) Mother Diabetes Heart disease Hypertension Father Heart disease Hypertension Diabetes CVA (cerebral vascular accident) History Items: Cancer, Diabetes, Heart Disease, Hypertension, Stroke Review of Systems Constitutional: Denies: Chills, Fever, Weight Change HEENT: Denies: Head Aches, Nasal Congestion, Post Nasal Drip, Sinus Congestion, Sinus Drainage, Sore Throat Cardiovascular: Reports: Chest Pressure. Denies: Chest Pain, Palpitations Respiratory: Reports: Cough - Chronic cough with no change in frequency or severity or sputum production, Shortness of Breath, Shortness of breath upon exertion. Denies: Shortness of breath at rest, Sputum production Gastrointestinal: Denies: Abdominal Pain, Nausea, Vomiting Genitourinary: Denies: Dysuria, Frequency Musculoskeletal: Reports: Back Pain, Joint Pain. Denies: Joint Tenderness Skin: Denies: Rash, Wounds Neurological: Reports: Balance problems. Denies: Focal weakness, Numbness, Tingling Psychiatric: Denies: Anxiety, Depression, Homicidal Ideations, Suicidal Ideations Hematologic/ Lymphatic: Denies: Easy Bruising, Easy Bleeding VTE Information - Inpt Only VTE Present on Admission: No VTE Mechan Device Prophylaxis: None VTE Pharm Prophylaxis ordered?: Yes - Physical Exam General: Alert, Oriented x3, Cooperative HEENT: Atraumatic, PERRLA, EOMI, Normocephalic Neck: Supple, No JVD, Negative Carotid Bruits Lungs: Clear to auscultation, No rhonchi, No wheeze, No rales, Diminished - Air entry diminished more on the right lower base. Cardiovascular: Regular rate, Regular Rhythm, Normal S1, Normal S2, Murmur - Grade 2/6 systolic murmur over left lower sternal border, - - Paced rhythm on EKG. Left lower dual-chamber pacemaker. Abdomen: Bowel Sounds Present, Soft, Non Tender, Non-Distended Extremities: No edema, Capillary Refill Less than 3 Seconds Skin: No rashes, No breakdown Musculoskeletal: No Tenderness to Palpation of Joints or Extremities, Arthritic Changes Lymphatic: No Cervical, Supraclavicular, or Inguinal Adenopathy Neurological: Cranial nerves II-XII grossly intact, Deep Tendon Reflexes 2+/4 and Symmetrical, Neuro grossly intact Psych/Mental Status: Normal Affect, Appropriate Vital Signs Temp Pulse Resp BP Pulse Ox 99 F 85 19 H 116/52 L 97 04/17/19 17:03 04/17/19 18:05 04/17/19 18:05 04/17/19 18:05 04/17/19 18:05 Oxygen Flow Rate (L/min) 3 Oxygen Delivery Method Nasal Cannula Weight: 135 lb Body Mass Index (BMI) 26.4 Laboratory Tests Past 24 Hrs 04/17/19 04/17/19 04/17/19 17:31 17:31 17:31 WBC 7.5 RBC 3.15 L Hgb 9.0 L Hct 30.2 L MCV 95.9 MCH 28.6 MCHC 29.8 L RDW Std Deviation 53.2 H RDW Coeff of Dom 15.3 H Plt Count 262 MPV 9.5 Immature Gran % (Auto) 0.700 Neut % (Auto) 74.2 H Lymph % (Auto) 12.2 L [place] % (Auto) 8.4 Eos % (Auto) 3.6 Baso % (Auto) 0.9 Absolute Neuts (auto) 5.6 Absolute Lymphs (auto) 0.92 Nucleated RBC % 0 Sodium 140 Potassium 4.3 Chloride 105 Carbon Dioxide 27.0 Anion Gap 8 BUN 38 H Creatinine 1.98 H Estim Creat Clear Calc 17.63 Est GFR (MDRD) Af Amer 32 L Est GFR (MDRD) Non-Af 26 L BUN/Creatinine Ratio 19.2 Glucose 285 H Calcium 8.1 L Troponin I < 0.015 B-Natriuretic Peptide 446.6 H Assessment/Plan All Active Problems (Last Updated 08/07/18 @ 15:53 by Phuong Flores) Pericarditis (Resolved) The patient is a 73 year old F with multiple comorbidities including coronary artery disease status post CABG 1 vessel and mitral valve replacement, bioprosthetic valve, paroxysmal A. fib on Eliquis came to ER for progressive worsening of shortness of breath for 2 to 3 days. In ED, basic blood work shows mild anemia, H&H 9.0/30, BUN/creatinine 38/1.98 on baseline creatinine 2.02. First troponin negative. BNP 446. EKG shows paced rhythm at 83 bpm with LAD and right bundle branch block. Chest x-ray shows small right pleural effusion with limited inspiration and rotated film. Patient follows Dr. avilez and had last pacemaker check in January 2019 which reported as 8 AT/AF episodes, 0.1% of total time with no VHR episodes since November 2018. 1. Acute on chronic heart failure with preserved EF: Patient had echo done in June 2018 and reported as EF 65% with normal LV size and RV size. Left atrium moderately enlarged. Normal right atrium. Moderate MS with a stable ap pearing prosthetic mitral valve apparatus. Trivial MR. Moderate 2+ TR, RVSP 47 mmHg. Mild aortic stenosis. No pericardial effusion. Patient is being admitted in PCU. At home, she is on Lasix 40 mg oral daily which was increased from the previous 20 mg daily. Patient is being started on Bumex 1 mg IV every 12 hourly. Will titrate the dose of Lasix according to the intake and output, daily weight measurement, and kidney function. Fluid restriction. 2. Mild chest pressure history of coronary artery disease and single-vessel bypass, paroxysmal A. fib on Eliquis, valvular heart disease status post bioprosthetic mitral valve replacement with trivial MR moderate TR with mild pulmonary hypertension. Serial troponin enzymes rule out acute coronary syndrome. Patient is started on low-dose Isordil 5 mg 3 times daily. Patient is on Eliquis, metoprolol and amiodarone 3. CKD stage IV: Currently patient BUN/creatinine on baseline. Patient denies any recent decrease in urine output in last 6 months. Monitor kidney function and electrolytes 4. Mild right-sided pleural effusion: This is less than what she had in July 2018 when she had thoracocentesis of 1100. Patient might need chest x-ray to monitor on pleural effusion may be after 2 or 3 days. 5. Other comorbidities include COPD on Flovent and Spiriva, diabetes mellitus type 2 on Humalog and Lantus insulin and decreased functional capacity. Patient also has moderate protein calorie malnutrition. Nutritional consult. Glucose is elevated 285. Lantus dose and Humalog insulin dose increased. Accu-Chek before meals and at bedtime and cover with Humalog sliding scale and titrate as per the Accu-Cheks. DVT prophylaxis: Patient is on Eliquis 2.5 mg twice daily. Advanced directive/living will: Patient's son Mr. Cabrera Rodriguez is power of loan documentation specialist for health. When discussed about the CODE STATUS, patient want full code including CPR, intubation and ventilator, central line insertion and vasopressor if needed. She does not want PEG tube in the event of dysphagia. Full code. Total time spent in [id number] encounter in discussion of advanced directive 18 minutes. Clinical Impression(s) from Imaging Studies Chest X-Ray 04/17/19 17:20 IMPRESSION: 1. Small right-sided effusion. 2. Limited inspiration. 3. Status post cardiac valvular replacement changes. An atrial appendage clip is seen. 4. There are calcified plaques of the aortic arch. 5. There is a bipolar left-sided pacemaker. Laboratory Results 04/17/19 17:31: WBC 7.5, RBC 3.15 L, Hgb 9.0 L, Hct 30.2 L, MCV 95.9, MCH 28.6, MCHC 29.8 L, RDW Std Deviation 53.2 H, RDW Coeff of Dom 15.3 H, Plt Count 262, MPV 9.5, Immature Gran % (Auto) 0.700, Neut % (Auto) 74.2 H, Lymph % (Auto) 12.2 L, [place] % (Auto) 8.4, Eos % (Auto) 3.6, Baso % (Auto) 0.9, Absolute Neuts (auto) 5.6, Absolute Lymphs (auto) 0.92, Nucleated RBC % 0 04/17/19 17:31: Sodium 140, Potassium 4.3, Chloride 105, Carbon Dioxide 27.0, Anion Gap 8, BUN 38 H, Creatinine 1.98 H, Estim Creat Clear Calc 17.63, Est GFR (MDRD) Af Amer 32 L, Est GFR (MDRD) Non-Af 26 L, BUN/Creatinine Ratio 19.2, Glucose 285 H, Calcium 8.1 L, Troponin I < 0.015 04/17/19 17:31: B-Natriuretic Peptide 446.6 H Code Visit Inpatient E&M: 67723 Init Hosp L3 Procedures: 90423 Advncd Care Plan 30 Min
[2019-04-17 20:08] VITALS: BMI 25.4
[2019-04-17 20:09] VITALS: PULSE 85
[2019-04-17 20:14] VITALS: BP 121/79; PULSE 85; RESP 18; TEMP 36.8; O2SAT 100
[2019-04-17 20:20] VITALS: BMI 25.4
[2019-04-17] MEDS: Ipratropium/Albuterol Sulfate 3 ML AMPUL.NEB INHALATION (21:07)
[2019-04-17] MEDS: Budesonide Respules 0.5 MG/2 ML AMPUL.NEB. INHALATION (21:07)
[2019-04-17 21:09] VITALS: PULSE 87; RESP 18
[2019-04-17 21:28] LABS: Magnesium 2.2 mg/dL (1.6-2.6)
[2019-04-17] MEDS: Isosorbide DN 10 MG Tablet 5 MG PO (22:12)
[2019-04-17] MEDS: APIXABAN 2.5 MG TABLET PO (22:13)
[2019-04-17 22:21] LABS: Bedside Glucose 139 mg/dL (70-110)
[2019-04-18] VITALS (15 sets, daily range): BP systolic 102–112; BP diastolic 57–64; PULSE 70–96; RESP 16–20; TEMP 36.4–36.6; O2SAT 92–99
[2019-04-18 05:33] LABS: Basophil# 0.07 X10^3/uL; Eosinophil# 0.38 X10^3/uL; Eosinophils% 5.2 % (0-5); Hematocrit 32.6 % (37-47); Hemoglobin 9.6 g/dL (12.0-15.0); Lymphocyte % 15.2 % (19-41); Mean Corp Hgb Conc 29.4 g/dL (32-36); Mean Corpuscular Hgb 28.5 pg (27.0-32.0); Mean Corpuscular Volume 96.7 fL (81-99); Mean Platelet Vol. 9.3 fl (6.2-12.0); Monocyte# 0.66 X10^3/uL; Monocyte% 9.1 % (0-10); NRBC Flagged by Analyzer 0 % (0-5); Neutrophil % 68.9 % (47-70); Platelet Count 278 K/mm3 (150-450); RBC Distribution Width CV 14.9 % (11.6-14.6); RBC Distribution Width SD 53.2 fl (35.1-43.9); Red Blood Count 3.37 M/mm3 (4.2-5.4); White Blood Count 7.3 K/mm3 (4.4-11.0)
[2019-04-18 06:27] LABS: Anion Gap 6 (5-15); BUN 39 mg/dL (7-18); BUN/Creat Ratio 20.4 RATIO (10-20); Calcium,Total 8.5 mg/dL (8.5-10.1); Chloride 106 mmol/L (98-107); Cholesterol 141 mg/dL (200); Creatinine, Serum 1.91 mg/dL (0.55-1.02); EST Glomerular Filtration Rate 27 mL/min (>60); Est Glom Filt Rate - Afr Amer 33 mL/min (>60); Estimated Creatinine Clearance 18.28 ml/min; Glucose 40 mg/dL (74-106); High Density Lipoprotein 59 mg/dL; Sodium Level 144 mmol/L (136-145); Thyroid Stim Hormone (TSH) 4.19 uIU/mL (0.358-3.74); Triglycerides 74 mg/dL; Very Low Density Lipoprotein 15 mg/dL (5-40)
[2019-04-18 07:01] LABS: Bedside Glucose 67 mg/dL (70-110)
[2019-04-18 07:20] LABS: Bedside Glucose 93 mg/dL (70-110)
[2019-04-18] MEDS: Budesonide Respules 0.5 MG/2 ML AMPUL.NEB. INHALATION ×2 (07:35→18:51)
[2019-04-18] MEDS: Ipratropium/Albuterol Sulfate 3 ML AMPUL.NEB INHALATION ×4 (07:35→18:51)
[2019-04-18] MEDS: oxyCODONE 5 MG Tablet PO ×2 (08:44→19:14)
[2019-04-18] MEDS: Polyethylene Glycol 3350 17 GM PACKET PO (08:45)
[2019-04-18] MEDS: Metoprolol(XL)Succ 25 MG Tablet PO (08:45)
[2019-04-18] MEDS: Amiodarone 200 MG Tablet PO (08:45)
[2019-04-18] MEDS: Cyanocobalamin 500 MCG Tablet 1000 MCG PO (08:45)
[2019-04-18] MEDS: APIXABAN 2.5 MG TABLET PO ×2 (08:45→21:16)
[2019-04-18] MEDS: 0.9% NaCl Peripheral Flush Adult/Peds IV ×3 (08:51→21:15)
[2019-04-18] MEDS: Bumetanide 1 MG/4 ML Vial IV ×2 (08:51→17:50)
--- NOTE | 2019-04-18 10:15 | CASEMGMT ---
RN LUDMILA [employer] CM to room to meet with patient for initial transition planning/care coordination assessment. ANNA KEYS introduced self and role at [facility]. Pt voices understanding and consents to assessment at this time. Pt resting in bed in no distress at this time. Pt is A/O at this time and answers all questions appropriately. Care providers, pharmacy, and demographics verified/updated at this time. PCP: Dr Nava Specialists: [facility]--cardiology. has an appt on 04/23 for a practice support specialist, but she does not remember the name of the doctor and does not remember who set the appt up-- it may have been one of her sons or her PCP. Preferred Pharmacy: [facility] Insurance: MCR, [employer] Prescription Benefit: Yes Living Will/HPOA: does not have LW or HCPOA . Interested in more information but does not want to talk with SW at this time to complete paperwork. Provided information on advanced directives and given Social Service rac card with number to call if chooses in the future to utilize [facility] social work for advanced directive completion. Educated patient that, if patient so chooses, can come back to [facility] and meet with a SW as an outpatient to complete health care advanced directives. Patient expresses understanding. LNOK: 2 adult sons, Jassi and Cabrera Living Arrangements: Lives in one-story home w/2 steps to enter. States both sons live with her. She states she is independent with personal care such as bathing and dressing and her sons assist with laundry, cooking, groceries, bills, and other household mgmt tasks. Transportation: Sons. Denies transportation concerns. DME: has the following DME: shower chair, hand held shower, nebulizer, and glucometer. Pt states the glucometer is working properly but that she is getting low on test strips. She states she originally got the glucometer and test strips through the mail and is not sure how to get more. Call placed to [facility] and they stated pt does not have a script for the test strips. Pt made aware and advised her to take the glucometer in to any local pharmacy to have someone assist her with getting the correct test strips. She was also made aware if she is unable to get test strips for the current glucometer she has, that she may need to purchase a new glucometer @ a local pharmacy and made aware they do have some brands that are very inexpensive. Pt also encouraged to have her sons assist her with this if needed . has O2 @ 3 L/M @ home and states got it through [employer] and is not sure if she got things switched over to another [employer] company when [employer] went out of business. Call placed to Rosemarie @ [employer] [facility]. She states they are providing oxygen to patient and that they just recently gave her new tanks. She states pt has the E-tanks and concentrator. HHC/SNF: Hx of [facility]. No history of HHC. Pt wishes to return home and states has no concerns with going home at time of discharge. PT/OT evals pending. Discussed HHC and OP therapy. Pt declines HHC, stating, I do not want anyone coming into my house and nosing around. She stated she may be interested in OP therapy but is unsure at this time. She was made aware script for OP therapy can given to her and she can take to OP location of her choice if she decides she would like to go. Pt voices appreciation. CM to follow for home oxygen needs and any further discharge planning/needs. Pt voices no further concerns/needs at this time. Advised pt to ask for CM if any further questions/concerns/needs arise. Voices understanding. PLAN: Home w/family support and possible OP therapy. Pt states is unsure yet if she will go anywhere for OP therapy but would like a script in case she decides that she does. Maurisio GARCIA RN CM
[2019-04-18 11:20] LABS: Bedside Glucose 213 mg/dL (70-110)
[2019-04-18] MEDS: Insulin Lispro 100 UNIT/ML INSULN.PEN 8 UNIT SC (12:06)
[2019-04-18] MEDS: Insulin Lispro 100 UNIT/ML INSULN.PEN SC (12:06)
--- NOTE | 2019-04-18 16:30 | PCM.PROGNOTE ---
Patient Problems: Active and Suspected Problems (Last Reviewed 04/22/19 @ 10:20 by Neil Villagran DO) Back pain (Acute) Leukocytosis (Acute) Subjective: The patient is a 73-year-old female with a past medical history of coronary artery disease, stage IV chronic renal failure, CABG x1 vessel, bioprosthetic mitral valve replacement, chronic hypoxic respiratory failure on 3 L/min of nasal O2 chronically, paroxysmal atrial fibrillation, chronic anticoagulation with Eliquis, pulmonary hypertension, recurrent right pleural effusions, diastolic congestive heart failure, sick sinus syndrome and history of pacemaker placement who presented to the emergency department at [facility] on 04/17/2019 complaining of increasing shortness of breath over the preceding 2 to 3 days. She had been sent to the emergency department by her primary care physician for an elevated BNP. She complained of chest heaviness with no radiation. Vital signs at presentation to the emergency department were temperature 99 ?F, pulse rate 77, blood pressure 119/62, respiratory rate 20 and she was 97% saturated on a 3 L nasal cannula. Pulse ox on room air was also 97%. CBC showed a normal white blood cell count 7.5 with an unremarkable differential. Hemoglobin was 9.0 and platelets were within normal limits. BMP was remarkable for an elevated BUN at 38 with a creatinine of 1.98 which is within her baseline. Creatinine clearance is 17.63 and the GFR is 26 consistent with stage IV chronic renal failure. BNP was 446 which is actually not terribly elevated for somebody with stage IV chronic renal failure. Chest x-ray showed a small right pleural effusion with no significant PVC when compared to prior films. She was admitted to the hospital with a dx of acute on chronic CHF and was started on Bumex 1 mg IV Q 12H. Afebrile since admission Fluid balance is -550 since admission. Blood pressure has ranged from 102/63-120 1/79. Heart rate is within normal limits and she is primarily paced. All lab and imaging was personally reviewed. Creatinine is 1.91 today and the BUN is 39. TSH is 4.19. LDL is 67 and the HDL is good at 59. Triglycerides are 74. Serial cardiac enzymes were negative. Sugar was low fasting today and is also low again at 5:00. Hemoglobin A1c is only 6.4 which is likely too low for a 73-year-old woman. She does not follow a diet at home and eats what she wants. she tells me that she has COREY and when she feels lies down she feels better. She has not had LE edema recently and in fact her son says her legs look really good. Her EF is normal. There is no LVH. The BNP is only 446 which is low for a pt in Stage IV renal failure. - Physical Exam General: Alert, Oriented x3, Cooperative, No apparent distress, - - she is sitting in the chair at the bedside eating Supper. HEENT: Atraumatic, PERRLA, EOMI Oral: Dry Mucosa Neck: No Nodes, Trachea Midline Lungs: No rales, Diminished, Wheezes, - - No conversational dyspnea, no accessory muscle use, not tachypneic. Cardiovascular: Regular rate, Regular Rhythm, Normal S1, Normal S2, No Gallop Abdomen: Bowel Sounds Present, Soft, Non Tender, Non-Distended Extremities: No edema Neurological: Cranial nerves II-XII grossly intact, Neuro grossly intact Psych/Mental Status: Normal Affect, Appropriate Vital Signs Temp Pulse Resp BP Pulse Ox 97.7 F L 83 16 112/61 96 04/18/19 15:00 04/18/19 15:21 04/18/19 15:11 04/18/19 15:00 04/18/19 15:00 Oxygen Flow Rate (L/min) 2 Oxygen Delivery Method Nasal Cannula Weight: 127 lb 13.89 oz Body Mass Index (BMI) 25.4 Intake and Output for Last 24 Hours 04/16/19 04/17/19 04/18/19 23:59 23:59 23:59 Intake Total 100 / 100 625 / 625 Output Total 800 / 800 475 / 475 Balance -700 / -700 150 / 150 Laboratory Tests Past 24 Hrs 04/17/19 04/17/19 04/17/19 17:31 17:31 17:31 WBC 7.5 RBC 3.15 L Hgb 9.0 L Hct 30.2 L MCV 95.9 MCH 28.6 MCHC 29.8 L RDW Std Deviation 53.2 H RDW Coeff of Dom 15.3 H Plt Count 262 MPV 9.5 Immature Gran % (Auto) 0.700 Neut % (Auto) 74.2 H Lymph % (Auto) 12.2 L Dundy % (Auto) 8.4 Eos % (Auto) 3.6 Baso % (Auto) 0.9 Absolute Neuts (auto) 5.6 Absolute Lymphs (auto) 0.92 Nucleated RBC % 0 Sodium 140 Potassium 4.3 Chloride 105 Carbon Dioxide 27.0 Anion Gap 8 BUN 38 H Creatinine 1.98 H Estim Creat Clear Calc 17.63 Est GFR (MDRD) Af Amer 32 L Est GFR (MDRD) Non-Af 26 L BUN/Creatinine Ratio 19.2 Glucose 285 H Calcium 8.1 L Magnesium Troponin I < 0.015 B-Natriuretic Peptide 446.6 H Triglycerides Cholesterol LDL Cholesterol VLDL Cholesterol HDL Cholesterol TSH 04/17/19 04/17/19 04/17/19 17:31 21:05 23:03 WBC RBC Hgb Hct MCV MCH MCHC RDW Std Deviation RDW Coeff of Dom Plt Count MPV Immature Gran % (Auto) Neut % (Auto) Lymph % (Auto) Dundy % (Auto) Eos % (Auto) Baso % (Auto) Absolute Neuts (auto) Absolute Lymphs (auto) Nucleated RBC % Sodium Potassium Chloride Carbon Dioxide Anion Gap BUN Creatinine Estim Creat Clear Calc Est GFR (MDRD) Af Amer Est GFR (MDRD) Non-Af BUN/Creatinine Ratio Glucose Calcium Magnesium 2.2 Troponin I < 0.015 < 0.015 B-Natriuretic Peptide Triglycerides Cholesterol LDL Cholesterol VLDL Cholesterol HDL Cholesterol TSH 04/18/19 04/18/19 05:16 05:16 WBC 7.3 RBC 3.37 L Hgb 9.6 L Hct 32.6 L MCV 96.7 MCH 28.5 MCHC 29.4 L RDW Std Deviation 53.2 H RDW Coeff of Dom 14.9 H Plt Count 278 MPV 9.3 Immature Gran % (Auto) 0.600 Neut % (Auto) 68.9 Lymph % (Auto) 15.2 L Dundy % (Auto) 9.1 Eos % (Auto) 5.2 H Baso % (Auto) 1.0 Absolute Neuts (auto) 5.0 Absolute Lymphs (auto) 1.10 Nucleated RBC % 0 Sodium 144 Potassium 4.0 Chloride 106 Carbon Dioxide 32.0 Anion Gap 6 BUN 39 H Creatinine 1.91 H Estim Creat Clear Calc 18.28 Est GFR (MDRD) Af Amer 33 L Est GFR (MDRD) Non-Af 27 L BUN/Creatinine Ratio 20.4 H Glucose 40 L* Calcium 8.5 Magnesium Troponin I B-Natriuretic Peptide Triglycerides 74 Cholesterol 141 LDL Cholesterol 67 VLDL Cholesterol 15 HDL Cholesterol 59 TSH 4.19 H POC Glucose 04/18/19 04/18/19 04/18/19 11:02 07:17 06:54 POC Glucose 213 H 93 67 L 04/17/19 22:11 POC Glucose 139 H Medical Necessity - Tobacco Use Smoking Status: Former smoker Assessment/Plan All Active Problems (Last Reviewed 04/22/19 @ 10:20 by Neil Villagran, ) Back pain (Acute) Leukocytosis (Acute) Hyperkalemia (Resolved) Dehydration (Resolved) Acute kidney injury (Acute) Pericarditis (Resolved) Acute on chronic diastolic (congestive) heart failure (Ruled-out) Impressions 1. acute on Chronic CHF - doubt. CXR with no significant PVC and no infiltrates. She has no orthopnea and no edema. The dyspnea is with exertion. She smoked for a lot of years. She only quit smoking 1 year ago. I think the SOB is due to chronic lung disease and not acute CHF. Bumex DC'd and she will be restarted on her regular dose of Lasix. 2. COPD with acute exacerbation - but, has not had PFT's and has not seen a clutch mechanic - has an appt with Mary Gallegos on 04/23. Consult Dr. Berger in the AM. DC the budesonide and start solu-medrol - likely can transition to prednisone in 24-48 hours. Will need ambulatory pulse ox prior to DC 3. acute hypoxic respiratory failure - requiring BIPAP 4. suspected sleep disordered breathing - has never had a sleep study. 5. H/O bioprosthetic MV replacement 6. chronic diastolic CHF 7. Paroxysmal atrial fibrillation 8. Secondary pulmonary hypertension -right ventricular systolic pressure estimated at 47 in June 2018. 9. Sick sinus syndrome-status post pacemaker insertion 10. CAD with history of CABG x1 vessel (SVG -PDA) 11. Status post maze procedure with left atrial clip 12. Mild aortic stenosis 13. Chronic anticoagulation with apixaban 14. Diabetes mellitus type 2-control is too rigid and would be happy with a hemoglobin A1c less than 7.5. 15. Hypoglycemia-decrease insulin and change the sliding scale to 3 times daily coverage before meals. Will discuss with Dr. Berger whether he feels the Amiodarone is contributing to chronic lung dz with COREY She will need PFT's and also sleep study. Code Visit Inpatient E&M: 33151 Subs Hosp L2
--- NOTE | 2019-04-18 16:44 | ECHOD_ITS ---
Reason For Study: CHF Procedure This was a 2D Doppler, Color Flow transthoracic echocardiogram. Exam performed portable in patient room. Left Ventricle Normal LV size. Concentric left ventricular hypertrophy. The estimated ejection fraction is 65 %. Unable to assess diastolic dysfunction. No regional wall motion abnormalities noted. Right Ventricle Normal RV size. Normal systolic function. Atria The left atrium is moderately enlarged. Normal right atrium. No doppler evidence for ASD. Mitral Valve Prosthetic mitral valve apparatus that appears in stable position. There is an echodensity that appears to be at the base of the posterior mitral leaflet and may be calcification of of the submitral apparatus/ leaflet and mitral annulus. The echo from 06/26 was reviewed and this appears similar. No evidence of significant change. Moderate mitral valve stenosis. Trivial mitral valve insufficiency. Tricuspid Valve There is no tricuspid stenosis. Mild tricuspid valve insufficiency. Pulmonary artery systolic pressure is 55 mmHg. Aortic Valve Mild diffuse aortic valve thickening. Mild aortic stenosis. Trivial aortic valve insufficiency. Pulmonic Valve There is no pulmonic valvular stenosis. No pulmonic valve insufficiency. Great Vessels Normal aortic root. Pericardium/Pleural No pericardial effusion. MMode/2D Measurements & Calculations LVIDd: 3.5 cm IVSd: 1.5 cm LVOT diam: 1.9 cm LVIDs: 2.6 cm LVPWd: 1.7 cm LVOT area: 2.8 cm2 RVDd: 4.8 cm FS: 25.7 % Ao root diam: 2.7 cm LAV(MOD-bp): 59.6 ml LVAd ap4: 16.8 cm2 LAV(MOD-bp) Indexed: 38.6 ml/m2 EDV(MOD-sp4): 36.4 ml LAV(MOD-sp2): 60.0 ml EDV(sp4-el): 38.7 ml LAV(MOD-sp4): 57.0 ml LVAs ap4: 8.7 cm2 ESV(MOD-sp4): 11.5 ml ESV(sp4-el): 11.8 ml EF(MOD-sp4): 68.5 % EF(sp4-el): 69.5 % SV(MOD-sp4): 24.9 ml SV(sp4-el): 26.9 ml LA A4 area: 20.1 cm2 LA dimension(2D): 4.2 cm RA A4 area: 13.1 cm2 Time Measurements MV dec time: 0.18 sec Doppler Measurements & Calculations MV E max christiano: 209.9 cm/sec Lat Peak E' Christiano: 6.3 cm/sec Med Peak E' Christiano: 3.5 cm/sec MV A max christiano: 71.3 cm/sec E/E' lat: 33.2 E/E' med: 60.2 MV E/A: 2.9 MV V2 max: 235.7 cm/sec MV P1/2t max christiano: 239.7 cm/sec Ao V2 max: 257.0 cm/sec MV max P.2 mmHg MV P1/2t: 99.0 msec Ao max P.5 mmHg MV V2 mean: 131.9 cm/sec Ao V2 mean: 183.0 cm/sec MV mean P.3 mmHg MV dec slope: 709.2 cm/sec2 Ao mean P.8 mmHg MV V2 VTI: 54.1 cm MVA(P1/2t): 2.2 cm2 Ao V2 VTI: 58.8 cm MVA(VTI): 1.2 cm2 EMIR(I,D): 1.1 cm2 EMIR(V,D): 1.2 cm2 AI max christiano: 424.6 cm/sec LV V1 max: 111.7 cm/sec SV(LVOT): 67.6 ml AI max P.1 mmHg LV V1 max P.0 mmHg LV V1 mean P.6 mmHg AI dec slope: 271.6 cm/sec2 LV V1 mean: 74.9 cm/sec AI P1/2t: 457.8 msec LV V1 VTI: 24.2 cm PA V2 max: 116.5 cm/sec TR max christiano: 354.9 cm/sec TR max P.4 mmHg Interpretation Summary Concentric left ventricular hypertrophy. The estimated ejection fraction is 65 %. Unable to assess diastolic dysfunction. Prosthetic mitral valve apparatus that appears in stable position. There is an echodensity that appears to be at the base of the posterior mitral leaflet and may be calcification of of the submitral apparatus/ leaflet and mitral annulus. The echo from 06/26 was reviewed and this appears similar. No evidence of significant change. Moderate mitral valve stenosis. Mild tricuspid valve insufficiency. Pulmonary artery systolic pressure is 55 mmHg. Mild aortic stenosis. Trivial aortic valve insufficiency. Ordering Physician: Ludmila Juarez Referring Physician: Gianni Nava Performed By: Nidia Esparza, JEFFY, RVT
[2019-04-18 17:30] LABS: Hemoglobin A1c 6.4 % (4.2-6.3)
[2019-04-18 17:41] LABS: Glucose 98 mg/dL (74-106)
[2019-04-18 18:00] LABS: Bedside Glucose 91 mg/dL (70-110)
[2019-04-18 18:00] LABS: Bedside Glucose 44 mg/dL (70-110)
[2019-04-18 21:45] LABS: Bedside Glucose 264 mg/dL (70-110)
[2019-04-19] VITALS (15 sets, daily range): BP systolic 105–133; BP diastolic 56–69; PULSE 74–82; RESP 16–18; TEMP 36.6–37; O2SAT 92–97
[2019-04-19 06:10] LABS: Absolute Lymphocyte Count 0.45 X10^3/uL (0.83-4.51); Absolute Neutrophil Count 6.6 X10^3/uL (2.0-7.7); Basophil# 0.03 X10^3/uL; Basophil% 0.4 % (0-1); Eosinophil# 0.01 X10^3/uL; Eosinophils% 0.1 % (0-5); Hematocrit 33.9 % (37-47); Hemoglobin 9.9 g/dL (12.0-15.0); Lymphocyte # 0.45 X10^3/ul (4.0); Lymphocyte % 6.2 % (19-41); Mean Corp Hgb Conc 29.2 g/dL (32-36); Mean Corpuscular Hgb 28.3 pg (27.0-32.0); Mean Corpuscular Volume 96.9 fL (81-99); Mean Platelet Vol. 9.9 fl (6.2-12.0); Monocyte# 0.06 X10^3/uL; Monocyte% 0.8 % (0-10); NRBC Flagged by Analyzer 0 % (0-5); Neutrophil # 6.62 X10^3/uL (2.7-7.7); Neutrophil % 91.5 % (47-70); POSITIVE DIFFERENTIAL YES; Platelet Count 259 K/mm3 (150-450); RBC Distribution Width CV 15.1 % (11.6-14.6); RBC Distribution Width SD 52.9 fl (35.1-43.9); White Blood Count 7.2 K/mm3 (4.4-11.0)
[2019-04-19 06:17] LABS: Differential Indicated SCAN CRITERIA MET
[2019-04-19 06:32] LABS: ALB/GLOB Ratio 0.7 RATIO (0.9-2.4); AST(SGOT) 23 U/L (15-37); Alanine Aminotransfer ALT/SGPT 23 U/L (13-56); Albumin, Serum 2.9 g/dL (3.2-5.0); Alkaline Phosphatase 214 U/L (45-117); Anion Gap 8 (5-15); BUN 47 mg/dL (7-18); BUN/Creat Ratio 19.9 RATIO (10-20); Calcium,Total 8.2 mg/dL (8.5-10.1); Chloride 101 mmol/L (98-107); Creatinine, Serum 2.36 mg/dL (0.55-1.02); EST Glomerular Filtration Rate 21 mL/min (>60); Est Glom Filt Rate - Afr Amer 26 mL/min (>60); Estimated Creatinine Clearance 14.79 ml/min; Glucose 294 mg/dL (74-106); Magnesium 2.3 mg/dL (1.6-2.6); Potassium 5.8 mmol/L (3.5-5.1); Protein, Total 6.9 g/dL (6.4-8.2); Sodium Level 137 mmol/L (136-145)
--- NOTE | 2019-04-19 06:47 | CON.PCM_ITS ---
Reason for Consult Date of Consultation: 04/19/19 Reason for Consultation: COPD exacerbation, dyspnea on exertion History of Present Illness: The patient is a 73-year-old female, with a history as outlined below, who presented to the emergency department on April 17 with complaints of shortness of breath. The patient reports that she was contacted by her primary care provider, Dr. Chacon, and instructed to come to the hospital for evaluation due to the presence of fluid on her lungs. The patient does have a smoking history of approximately 1 to 1.5 packs of cigarettes per day x50 years. She reports that she quit smoking completely 1 year ago. The patient has never been evaluated by a hydraulic hammer operator, nor has she ever undergone pulmonary function testing. She does appear to be prescribed both a DuoNeb's and Spiriva on an outpatient basis. In addition, she is on amiodarone 200 mg daily. The patient does have a known history of coronary artery disease for which she is status post CABG in November 2017. The patient also previously underwent mitral valve replacement/Maze procedure and has a pacemaker in place. She also has a known history of heart failure with preserved ejection fraction and is followed by Dr. Montgomery on an outpatient basis. The patient has been admitted to the hospital on 2 separate occasions in 2018, during which time, she was treated with diuretics for decompensated heart failure. The patient has a known recurrent transudate of right-sided pleural effusion as well. In addition to the aforementioned, the patient reports that she sleeps a significant amount of time nightly but still wakes up in the morning feeling unrefreshed. She endorses the presence of excessive daytime sleepiness as well along with frequent napping. The patient has never been formally evaluated for the presence of sleep apnea. Surface echocardiogram from June 2018 revealed normal LV size and function with an ejection fraction of 65%. There was evidence of moderate left atrial enlargement and a right ventricular systolic pressure estimated to be 47 mmHg. On presentation to the emergency department, the patient was noted to be afebrile and hemodynamically stable. She was saturating 97% on 3 L/min. Laboratory evaluation revealed no evidence of a leukocytosis. She did have a mild peripheral eosinophilia noted on differential. Chemistry profile was notable for chronic kidney disease with a creatinine of 1.98. Chest x-ray revealed a right-sided pleural effusion. The patient was initially admitted to the progressive care unit where she was managed for a heart failure exacerbation. Past Medical History Past Medical History (Chronic Problems): Chronic Problems (Last Updated 08/07/18 @ 15:53 by Phuong Flores) CHF (congestive heart failure) (Chronic) Sick sinus syndrome due to sinoatrial node dysfunction (Chronic) Non-rheumatic mitral valve stenosis (Chronic) CABG x 1 SVG-PDA , MVR w/ 25 mm tissue valve and R&L cryo-maze procedure w/ left atrial clip 11/20/17 Non-rheumatic mitral regurgitation (Chronic) CABG x 1 SVG-PDA , MVR w/ 25 mm tissue valve and R&L cryo-maze procedure w/ left atrial clip 11/20/17 Secondary pulmonary arterial hypertension (Chronic) Non-rheumatic tricuspid valve insufficiency (Chronic) Right bundle branch block (RBBB) (Chronic) H/O mitral valve replacement with cardiopulmonary bypass (Chronic 11/20/17) CABG x 1 SVG-PDA , MVR w/ 25 mm tissue valve and R&L cryo-maze procedure w/ left atrial clip 11/20/17 Presence of permanent cardiac pacemaker (Chronic 06/2018) CelluComptronic Atherosclerosis of coronary artery of [place] heart without angina pectoris (C hronic) CABG x 1 SVG-PDA , MVR w/ 25 mm tissue valve and R&L cryo-maze procedure w/ left atrial clip 11/20/17 Acute on chronic diastolic (congestive) heart failure (Chronic) Paroxysmal atrial fibrillation (Chronic) Recurrent pleural effusion on right (Chronic) Medical History: Medical History (Last Updated 08/07/18 @ 15:53 by Phuong Flores) Sick sinus syndrome due to sinoatrial node dysfunction (Chronic) I49.5 Pericarditis (Resolved) I31.9 Non-rheumatic mitral valve stenosis (Chronic) I34.2 CABG x 1 SVG-PDA , MVR w/ 25 mm tissue valve and R&L cryo-maze procedure w/ left atrial clip 11/20/17 Non-rheumatic mitral regurgitation (Chronic) I34.0 CABG x 1 SVG-PDA , MVR w/ 25 mm tissue valve and R&L cryo-maze procedure w/ left atrial clip 11/20/17 Secondary pulmonary arterial hypertension (Chronic) I27.21 Non-rheumatic tricuspid valve insufficiency (Chronic) I36.1 Right bundle branch block (RBBB) (Chronic) I45.10 Atherosclerosis of coronary artery of [place] heart without angina pectoris (Chronic) I25.10 CABG x 1 SVG-PDA , MVR w/ 25 mm tissue valve and R&L cryo-maze procedure w/ left atrial clip 11/20/17 Acute on chronic diastolic (congestive) heart failure (Chronic) I50.33 Paroxysmal atrial fibrillation (Chronic) I48.0 Recurrent pleural effusion on right (Chronic) J90 (HFpEF) heart failure with preserved ejection fraction I50.30 COPD (chronic obstructive pulmonary disease) J44.9 CVA (cerebral vascular accident) I63.9 Chronic kidney disease, stage 3 N18.3 Dysphagia R13.10 Iron deficiency anemia D50.9 Type 2 diabetes mellitus E11.9 Sepsis A41.9 Allergies simvastatin [From Zocor] Allergy (Verified 04/17/19 17:03) Unknown Home Medications: Ambulatory Orders Medication Instructions Recorded Apixaban [Eliquis] 2.5 mg PO BID 07/04/18 Insulin Lispro [Humalog] See Protocol SQ 4X/DAY 07/04/18 Furosemide [Lasix] 40 mg PO DAILY tab 07/24/18 ipratropium-albuterol 0.5 mg-3 3 ml INHALATION 4X/DAY ml 09/24/18 mg(2.5 mg base)/3 mL nebulization soln metoprolol succinate ER 25 mg 25 mg PO DAILY 09/24/18 tablet,extended release 24 hr Amiodarone HCl 200 mg PO DAILY 04/17/19 Cholecalciferol (Vitamin D3) 2,000 unit PO DAILY 04/17/19 [Vitamin D3] Cyanocobalamin (Vitamin B-12) 1,000 mcg PO DAILY 04/17/19 [B-12] Fluticasone 110 Mcg [Flovent (SP)] 2 puff INHALATION BID 04/17/19 Insulin Glargine,Hum.rec.anlog 16 unit SQ QHS 04/17/19 [Toujeo Solostar] Insulin Lispro [Humalog KwikPen] 5 unit SQ TIDCM 04/17/19 Tiotropium [place] [Spiriva] 2 puff INHALATION DAILY 04/17/19 Surgical History: Surgical History (Last Reviewed 09/24/18 @ 15:21 by Ebony Andersen) H/O mitral valve replacement with cardiopulmonary bypass (Chronic) Onset Date: 05/14/18 Z95.2 CABG x 1 SVG-PDA , MVR w/ 25 mm tissue valve and R&L cryo-maze procedure w/ left atrial clip 11/20/17 Presence of permanent cardiac pacemaker (Chronic) Onset Date: 06/2018 Z95.0 [employer] History of maze procedure Onset Date: 11/20/17 Z98.890 Cryo Maze w/ left atrial clip for atrial fib History of thoracentesis Onset Date: 07/23/18 Z98.890 07/11/18, 07/12/18, 07/23/18 Hx of cholecystectomy Z90.49 Surgical History: cholecystectomy, coronary bypass surgery, - - Mitral valve replacement, and permanent pacemaker. Lives: With Family Smoking Status: Former smoker - *Family History Maternal Family History: Family History (Last Reviewed 09/24/18 @ 15:21 by Ebony Andersen) Mother Diabetes Heart disease Hypertension Father Heart disease Hypertension Diabetes CVA (cerebral vascular accident) History Items: Diabetes, Heart Disease, Hypertension Paternal Family History: Family History (Last Reviewed 09/24/18 @ 15:21 by Ebony Andersen) Mother Diabetes Heart disease Hypertension Father Heart disease Hypertension Diabetes CVA (cerebral vascular accident) History Items: Cancer, Diabetes, Heart Disease, Hypertension, Stroke Review of Systems Constitutional: Reports: Fatigue. Denies: Chills, Fever Eyes: Denies: Blurred vision, Double vision HEENT: Denies: Head Aches, Sinus Congestion, Sinus Drainage Cardiovascular: Denies: Chest Pain, Palpitations Respiratory: Reports: Shortness of Breath, Wheezing. Denies: Sputum production Gastrointestinal: Denies: Abdominal Pain, Nausea, Vomiting Genitourinary: Denies: Dysuria Musculoskeletal: Denies: Joint Pain, Joint Tenderness Skin: Denies: Rash, Wounds Neurological: Denies: Numbness, Tingling, Focal weakness Psychiatric: Denies: Anxiety, Depression, Homicidal Ideations, Suicidal Ideations Hematologic/ Lymphatic: Reports: Anemia Objective: The patient's most recent lab work, culture data and imaging studies have all been personally reviewed. - Physical Exam General: Alert, Cooperative, No apparent distress, - - Sitting upright in bed HEENT: Atraumatic, PERRLA, Normocephalic Oral: No Gingival or Mucosal Lesions/ Ulcerations Neck: Supple, No Nodes, Trachea Midline Lungs: Diminished, - - Basilar inspiratory squeak. No appreciable wheezes, rales or rhonchi. Cardiovascular: Regular rate, Regular Rhythm, Normal S1, Normal S2 Abdomen: Bowel Sounds Present, Soft, Non Tender Extremities: No clubbing, No cyanosis, No edema Skin: No breakdown Musculoskeletal: No Tenderness to Palpation of Joints or Extremities Lymphatic: No Cervical, Supraclavicular, or Inguinal Adenopathy Neurological: Cranial nerves II-XII grossly intact, Neuro grossly intact Psych/Mental Status: Alert and oriented to time, place, person, mood and affect Vital Signs Temp Pulse Resp BP Pulse Ox 98.6 F 76 18 105/65 92 04/19/19 03:00 04/19/19 03:00 04/19/19 03:00 04/19/19 03:00 04/19/19 03:00 Oxygen Flow Rate (L/min) 2 Oxygen Delivery Method Nasal Cannula Weight: 132 lb 11.492 oz Body Mass Index (BMI) 25.4 Intake and Output for Last 24 Hours 04/17/19 04/18/19 04/19/19 23:59 23:59 23:59 Intake Total 100 / 100 1250 / 1250 Output Total 800 / 800 675 / 675 Balance -700 / -700 575 / 575 Laboratory Tests Past 24 Hrs 04/18/19 04/18/19 04/19/19 05:16 17:25 05:30 WBC 7.2 RBC 3.50 L Hgb 9.9 L Hct 33.9 L MCV 96.9 MCH 28.3 MCHC 29.2 L RDW Std Deviation 52.9 H RDW Coeff of Dom 15.1 H Plt Count 259 MPV 9.9 Immature Gran % (Auto) 1.000 H Neut % (Auto) 91.5 H Lymph % (Auto) 6.2 L [place] % (Auto) 0.8 Eos % (Auto) 0.1 Baso % (Auto) 0.4 Absolute Neuts (auto) 6.6 Absolute Lymphs (auto) 0.45 L Nucleated RBC % 0 Sodium Potassium Chloride Carbon Dioxide Anion Gap BUN Creatinine Estim Creat Clear Calc Est GFR (MDRD) Af Amer Est GFR (MDRD) Non-Af BUN/Creatinine Ratio Glucose 98 Hemoglobin A1c 6.4 H Calcium Phosphorus Magnesium Total Bilirubin AST ALT Alkaline Phosphatase Total Protein Albumin Globulin Albumin/Globulin Ratio 04/19/19 05:30 WBC RBC Hgb Hct MCV MCH MCHC RDW Std Deviation RDW Coeff of Dom Plt Count MPV Immature Gran % (Auto) Neut % (Auto) Lymph % (Auto) [place] % (Auto) Eos % (Auto) Baso % (Auto) Absolute Neuts (auto) Absolute Lymphs (auto) Nucleated RBC % Sodium 137 Potassium 5.8 H Chloride 101 Carbon Dioxide 28.0 Anion Gap 8 BUN 47 H Creatinine 2.36 H Estim Creat Clear Calc 14.79 Est GFR (MDRD) Af Amer 26 L Est GFR (MDRD) Non-Af 21 L BUN/Creatinine Ratio 19.9 Glucose 294 H Hemoglobin A1c Calcium 8.2 L Phosphorus 4.0 Magnesium 2.3 Total Bilirubin 0.30 AST 23 ALT 23 Alkaline Phosphatase 214 H Total Protein 6.9 Albumin 2.9 L Globulin 4.0 Albumin/Globulin Ratio 0.7 L POC Glucose 04/18/19 04/18/19 04/18/19 21:12 17:47 16:39 POC Glucose 264 H 91 44 L* 04/18/19 04/18/19 04/18/19 11:02 07:17 06:54 POC Glucose 213 H 93 67 L Clinical Impression(s) from Imaging Studies Chest X-Ray 04/17/19 17:20 IMPRESSION: 1. Small right-sided effusion. 2. Limited inspiration. 3. Status post cardiac valvular replacement changes. An atrial appendage clip is seen. 4. There are calcified plaques of the aortic arch. 5. There is a bipolar left-sided pacemaker. Electronically Signed: Willie Van MD at 17:51 EDT , Service support , Assessment/Plan All Active Problems (Last Updated 08/07/18 @ 15:53 by Phuong Flores) Pericarditis (Resolved) RECOMMENDATIONS: 1. Continue baseline Lasix regimen. 2. Continue bronchodilators as ordered. 3. Recommend a 5-day burst of prednisone 40 mg daily. 4. Outpatient pulmonary follow-up is already arranged on April 23. 5. Recommend outpatient PFTs, 6-minute walk test and polysomnogram. 6. At the time of her discharge, please send patient with an albuterol rescue inhaler as well. IMPRESSIONS: 1. Chronic hypoxemic respiratory failure/shortness of breath/presumptive COPD of unknown severity The patient presented to the hospital with complaints of shortness of breath, which is likely multifactorial in etiology. While she does have underlying heart failure with preserved ejection fraction along with pulmonary hypertension and chronic kidney disease, she has never required more than her baseline oxygen requirement of 3 L/min. She has a known recurrent right-sided pleural effusion, which has been transudate of in the past. The patient has never been evaluated formally from a pulmonary perspective with PFTs. She does have an extensive smoking history, making the possibility of undertreated obstructive lung disease a potential contributing factor for the patient's dyspnea. At the current time, the patient can be continued on her diuretic regimen. I agree with continuing bronchodilators and steroids, she was previously noted to have wheezing on exam. At discharge, I would recommend a 5-day burst of prednisone 40 mg daily. The patient is currently scheduled to be seen in the pulmonary medicine clinic on April 23. She undoubtedly needs to have pulmonary function studies completed and her outpatient inhaler regimen optimized. Perform walking oximetry study prior to consideration for discharge home. 2. Tobacco dependency, currently in remission The patient has a 48-81-oizh-year smoking history, having quit completely 1 year ago. I would strongly recommend outpatient PFTs and further optimization of her inhaler regimen. 3. Daytime hypersomnolence The patient endorses symptoms concerning for underlying sleep disordered breathing, including nonrestorative sleep, daytime hypersomnolence and frequent napping. Therefore, I would recommend that the patient undergo a formal polysomnogram on an outpatient basis. Orders for testing can be placed at her pulmonary office visit on April 23. 4. Heart failure with preserved ejection fraction/pulmonary hypertension/paroxysmal atrial fibrillation/chronic kidney disease/diabetes mellitus Complicates care, management, recovery and prognosis. Continue current medical management. Perform walking oximetry study prior to consideration for discharge home. This note was generated with [employer] dictation software. It may contain incorrect words, spelling, and punctuation that were not noted in checking the note before signing. Code Visit Inpatient E&M: 74219 Init Hosp L3
[2019-04-19] MEDS: Ipratropium/Albuterol Sulfate 3 ML AMPUL.NEB INHALATION ×4 (06:53→19:10)
[2019-04-19 07:06] LABS: Bedside Glucose 47 mg/dL (70-110)
[2019-04-19 07:06] LABS: Bedside Glucose 40 mg/dL (70-110)
[2019-04-19 08:21] LABS: Bedside Glucose 354 mg/dL (70-110)
[2019-04-19] MEDS: Insulin Lispro 100 UNIT/ML INSULN.PEN 6 UNIT SC ×2 (09:46→14:01)
[2019-04-19] MEDS: Insulin Lispro 100 UNIT/ML INSULN.PEN SC ×4 (09:46→22:15)
[2019-04-19] MEDS: Amiodarone 200 MG Tablet PO (09:47)
[2019-04-19] MEDS: Metoprolol(XL)Succ 25 MG Tablet PO (09:47)
[2019-04-19] MEDS: Furosemide 40 MG Tablet PO (09:47)
[2019-04-19] MEDS: Polyethylene Glycol 3350 17 GM PACKET PO (09:48)
[2019-04-19] MEDS: Cyanocobalamin 500 MCG Tablet 1000 MCG PO (09:48)
[2019-04-19] MEDS: APIXABAN 2.5 MG TABLET PO ×2 (09:48→22:14)
--- NOTE | 2019-04-19 10:59 | CASEMGMT ---
Addendum entered by Barrett Garcia 04/19/19 11:13: Script obtained for OP therapy and given to pt. Pt inquired where she could go to for OP therapy. Pt lives in [place] and again states she does not want to go to [place]. Made aware there are a couple of OP facilities in [place], [facility] and [facility]. Pt stated, that's too far. Pt reminded that [facility] Van transportation could transport her to [facility] and she states she may be interested, but is not sure if her son's would be available to assist her getting in/out of the van. Pt provided with [facility] transportation information to utilize if she decides to in the future. Pt states she would think about it. Discussed HHC again with pt but she again declines, stating, I don't want anyone coming in and nosing around. Original Note: ANNA KEYS NOTE: Pt states she would like the small portable O2 tanks. Call placed to Rosemarie @ [facility]. She states that pt does not need new ambulatory testing completed d/t she is currently on the same liter flow of oxygen as their current order. She states pt will need new script for Conserving Device, though. Per Rosemarie, a Resp therapist will need to make an appt with pt and go to her home to complete testing for the conserving device. Pt was made aware of this and is agreeable. Will obtain script and fax to [facility] when it is available. Pt states she will ask one of her sons to bring in her portable O2 tank from home to use when she is discharged. Maurisio GARCIA RN, CM
[2019-04-19 11:35] LABS: Bedside Glucose 407 mg/dL (70-110)
[2019-04-19] MEDS: 0.9% NaCl Peripheral Flush Adult/Peds IV ×2 (14:02→18:30)
[2019-04-19 16:46] LABS: Bedside Glucose 334 mg/dL (70-110)
[2019-04-19] MEDS: oxyCODONE 5 MG Tablet PO (16:56)
--- NOTE | 2019-04-19 17:36 | DCINST_ITS ---
- Discharge Diagnoses Current Active Problems: Current Active and Chronic Problems (Last Updated 08/07/18 @ 15:53 by Phuong Flores) CHF (congestive heart failure) (Chronic) Allergies/Adverse Reactions: Allergies simvastatin [From Zocor] Allergy (Verified 04/17/19 17:03) Unknown Medications to take at Discharge Apixaban [Eliquis] 2.5 mg PO BID 07/04/18 Insulin Lispro [Humalog] See Protocol SQ 4X/DAY 07/04/18 Furosemide [Lasix] 40 mg PO DAILY tab 07/24/18 ipratropium-albuterol 0.5 mg-3 mg(2.5 mg base)/3 mL nebulization soln 3 ml INHALATION 4X/DAY ml 09/24/18 metoprolol succinate ER 25 mg tablet,extended release 24 hr 25 mg PO DAILY 09/24/18 Amiodarone HCl 200 mg PO DAILY 04/17/19 Cholecalciferol (Vitamin D3) [Vitamin D3] 2,000 unit PO DAILY 04/17/19 Cyanocobalamin (Vitamin B-12) [B-12] 1,000 mcg PO DAILY 04/17/19 Fluticasone 110 Mcg [Flovent 110 Mcg] 2 puff INHALATION BID 04/17/19 Insulin Glargine,Hum.rec.anlog [Toujeo Solostar] 16 unit SQ QHS 04/17/19 Insulin Lispro [Humalog KwikPen] 5 unit SQ TIDCM 04/17/19 Tiotropium [place] [Spiriva] 2 puff INHALATION DAILY 04/17/19 Albuterol Inhaler [Ventolin Hfa (SP)] 1 - 2 puff INHALATION Q4H PRN PRN #1 inhaler 04/19/19 Prednisone 20 mg PO BID #8 tab 04/19/19 The following prescriptions were given: Prednisone 20 mg PO BID #8 tab Transmission Status: Pending to [address] Albuterol Inhaler [Ventolin Hfa (SP)] 1 - 2 puff INHALATION Q4H PRN PRN #1 inhaler PRN Reason: shortness of breath or wheezin [facility] Primary Care Physician: Gianni Nava DO [Primary Care Provider] - Test Results: Test results from this visit will be discussed in further detail at your follow- up appointment, if applicable. Please Follow Up With: Jas Teague NP-C Please Follow Up With: Mary Bush NP-C Please Follow Up With: [facility] Please Follow Up With: Srinivas Montgomery MD
--- NOTE | 2019-04-19 17:47 | PN_ITS ---
Subjective: All events of the past 24 hours of been reviewed. She is afebrile. Vital signs are stable. She is maintaining an appropriate oxygen saturation of 96% on her baseline 2 L/min of nasal O2. All lab was personally reviewed. White blood cell count is normal at 7.2 today with a 91% neutrophils ..... Left shift is related to high-dose steroids. Hemog lobin is stable at 9.9, up from 9.0 at admission. Platelet count is within normal limits. Potassium is elevated at 5.8 today and the BUN is 47 with a creatinine of 2.36, up from 1.98 at admission (likely due to Bumex started at admission for acute diastolic CHF which has been ruled out. Diuretics were stopped yesterday afternoon. Blood sugars are increased today due to the high dose steroids. Seen by Dr. Berger today who recommended discharge on a 5-day course of prednisone 40 mg daily. She denies shortness of breath today and also denies cough. She has no complaints. - Physical Exam General: Alert, Oriented x3, Cooperative, No apparent distress HEENT: Atraumatic Oral: No Gingival or Mucosal Lesions/ Ulcerations, Dry Mucosa Neck: No Nodes, Trachea Midline Lungs: Clear to auscultation, - - Better air exchange today. Not tachypneic, no accessory muscle use and no conversational dyspnea. Cardiovascular: Regular rate, Regular Rhythm, Normal S1, Normal S2, No rub noted, No Gallop Abdomen: Bowel Sounds Present, Soft, Non Tender, Non-Distended Extremities: No edema Neurological: Cranial nerves II-XII grossly intact, Neuro grossly intact Psych/Mental Status: Normal Affect, Appropriate Vital Signs Temp Pulse Resp BP Pulse Ox 98.0 F 79 16 132/69 H 96 04/19/19 14:08 04/19/19 15:15 04/19/19 15:15 04/19/19 14:08 04/19/19 14:08 Oxygen Flow Rate (L/min) 2 Oxygen Delivery Method Nasal Cannula Weight: 132 lb 11.492 oz Body Mass Index (BMI) 25.4 Intake and Output for Last 24 Hours 04/17/19 04/18/19 04/19/19 23:59 23:59 23:59 Intake Total 100 / 100 1250 / 1250 650 / 650 Output Total 800 / 800 675 / 675 Balance -700 / -700 575 / 575 650 / 650 Laboratory Tests Past 24 Hrs 04/19/19 04/19/19 05:30 05:30 WBC 7.2 RBC 3.50 L Hgb 9.9 L Hct 33.9 L MCV 96.9 MCH 28.3 MCHC 29.2 L RDW Std Deviation 52.9 H RDW Coeff of Dom 15.1 H Plt Count 259 MPV 9.9 Immature Gran % (Auto) 1.000 H Neut % (Auto) 91.5 H Lymph % (Auto) 6.2 L [place] % (Auto) 0.8 Eos % (Auto) 0.1 Baso % (Auto) 0.4 Absolute Neuts (auto) 6.6 Absolute Lymphs (auto) 0.45 L Nucleated RBC % 0 Sodium 137 Potassium 5.8 H Chloride 101 Carbon Dioxide 28.0 Anion Gap 8 BUN 47 H Creatinine 2.36 H Estim Creat Clear Calc 14.79 Est GFR (MDRD) Af Amer 26 L Est GFR (MDRD) Non-Af 21 L BUN/Creatinine Ratio 19.9 Glucose 294 H Calcium 8.2 L Phosphorus 4.0 Magnesium 2.3 Total Bilirubin 0.30 AST 23 ALT 23 Alkaline Phosphatase 214 H Total Protein 6.9 Albumin 2.9 L Globulin 4.0 Albumin/Globulin Ratio 0.7 L POC Glucose 04/19/19 04/19/19 04/19/19 16:42 11:26 08:04 POC Glucose 334 H 407 H 354 H 04/18/19 04/18/19 04/18/19 21:12 17:47 17:10 POC Glucose 264 H 91 47 L 04/18/19 04/18/19 16:57 16:39 POC Glucose 40 L* 44 L* Medical Necessity - Tobacco Use Smoking Status: Former smoker Assessment/Plan All Active Problems (Last Updated 08/07/18 @ 15:53 by Phuong Flores) Pericarditis (Resolved) Impressions 1. acute on Chronic CHF - ruled out. CXR with no significant PVC and no infiltrates. She has no orthopnea and no edema. The dyspnea is with exertion. She smoked for a lot of years. She only quit smoking 1 year ago. SOB is due to acute exacerbation of suspected COPD. 2. Suspected COPD with acute exacerbation - but, has not had PFT's and has not seen a project designer - has an appt with Mary Gallegos on 04/23. Seen by Dr. Berger who recommends a rescue inhaler and a 5-day course of 40 mg of prednisone daily area Solu-Medrol discontinued and she has been started on prednisone 40 mg daily starting 04/20/2019. 3. acute hypoxic respiratory failure on chronic hypoxic respiratory failure on 2 L nasal O2- requiring BIPAP 4. suspected sleep disordered breathing - has never had a sleep study. Has daytime somnolence. 5. H/O bioprosthetic MV replacement 6. chronic diastolic CHF 7. Paroxysmal atrial fibrillation 8. Secondary pulmonary hypertension -right ventricular systolic pressure estimated at 47 in June 2018. 9. Sick sinus syndrome-status post pacemaker insertion 10. CAD with history of CABG x1 vessel (SVG -PDA) 11. Status post maze procedure with left atrial clip 12. Mild aortic stenosis 13. Chronic anticoagulation with apixaban 14. Diabetes mellitus type 2-control is too rigid and would be happy with a hemoglobin A1c less than 7.5. HGBA1C is 6.4 and she is at risk for hypoglycemia 15. Hypoglycemia-decrease insulin and change the sliding scale to 3 times daily coverage before meals. 16. NATI - likely due to dehydration/diuretics IV at admission.......CREAT increased prior to the increase in the BS's due to IV steroids. Fluid bolus and IV fluids ordered. Recheck lab in the AM 17. Hyperkalemia-secondary to acute kidney injury. Hydrate and give 1 dose Kayexalate Transition to PO steroids. Recheck the lab in the AM Hold DC Code Visit Inpatient E&M: 04431 [facility] Hosp L3
[2019-04-19] MEDS: Sodium Polystyrene Sulfonate 15 GM/60 ML UDC PO (18:33)
[2019-04-19] MEDS: Insulin Lispro 100 UNIT/ML INSULN.PEN 10 UNIT SC (18:37)
[2019-04-19] MEDS: 0.9% Normal Saline 1,000 ML 100 ML IV (18:56)
[2019-04-19 21:48] LABS: Anion Gap 8 (5-15); BUN 54 mg/dL (7-18); BUN/Creat Ratio 21.6 RATIO (10-20); Calcium,Total 8.6 mg/dL (8.5-10.1); Chloride 100 mmol/L (98-107); EST Glomerular Filtration Rate 20 mL/min (>60); Est Glom Filt Rate - Afr Amer 24 mL/min (>60); Estimated Creatinine Clearance 13.97 ml/min; Glucose 285 mg/dL (74-106); Potassium 4.6 mmol/L (3.5-5.1); Sodium Level 135 mmol/L (136-145)
[2019-04-19 22:46] LABS: Bedside Glucose 252 mg/dL (70-110)
[2019-04-20] VITALS (10 sets, daily range): BP systolic 121–137; BP diastolic 61–77; PULSE 81–88; RESP 16–18; TEMP 36.4–36.9; O2SAT 92–96
[2019-04-20] MEDS: Albuterol 2.5 MG/3 ML VIAL.NEB. INHALATION (00:29)
[2019-04-20 02:36] LABS: Bedside Glucose 186 mg/dL (70-110)
[2019-04-20] MEDS: 0.9% Normal Saline 1,000 ML 100 ML IV (04:47)
[2019-04-20] MEDS: Ipratropium/Albuterol Sulfate 3 ML AMPUL.NEB INHALATION ×3 (06:21→14:41)
[2019-04-20 06:52] LABS: Anion Gap 7 (5-15); BUN 53 mg/dL (7-18); Chloride 102 mmol/L (98-107); Creatinine, Serum 2.04 mg/dL (0.55-1.02); EST Glomerular Filtration Rate 25 mL/min (>60); Est Glom Filt Rate - Afr Amer 31 mL/min (>60); Estimated Creatinine Clearance 17.12 ml/min; Glucose 264 mg/dL (74-106); Magnesium 2.3 mg/dL (1.6-2.6); Phosphorus 3.4 mg/dL (2.5-4.9); Potassium 4.5 mmol/L (3.5-5.1); Sodium Level 137 mmol/L (136-145)
--- NOTE | 2019-04-20 08:05 | PN_ITS ---
Subjective: The patient was seen and examined at the bedside this morning. Events from the last 24 hours have been reviewed. The patient is currently afebrile, hemodynamically stable and maintaining appropriate oxygen saturations on 2 L/min via nasal cannula. Creatinine is improved this morning to 2.04, in light of de- escalation and diuretics. The patient is currently comfortable, sitting upright in bed. Objective: The patient's most recent lab work, culture data and imaging studies have all been personally reviewed. Surface echocardiogram from June 2018 revealed normal LV size and function with an ejection fraction of 65%. There was evidence of moderate left atrial enlargement and a right ventricular systolic pressure estimated to be 47 mmHg. - Physical Exam General: Alert, Cooperative, No apparent distress HEENT: Atraumatic, PERRLA, Normocephalic Oral: No Gingival or Mucosal Lesions/ Ulcerations Neck: Supple, No Nodes, Trachea Midline Lungs: No rhonchi, No wheeze, No rales, Diminished Cardiovascular: Regular rate, Regular Rhythm, Normal S1, Normal S2 Abdomen: Bowel Sounds Present, Soft, Non Tender, Non-Distended Extremities: No clubbing, No cyanosis, No edema Skin: No breakdown Musculoskeletal: No Tenderness to Palpation of Joints or Extremities, No Muscle Wasting Lymphatic: No Cervical, Supraclavicular, or Inguinal Adenopathy Neurological: Cranial nerves II-XII grossly intact, Neuro grossly intact Psych/Mental Status: Alert and oriented to time, place, person, mood and affect Vital Signs Temp Pulse Resp BP Pulse Ox 98.1 F 88 18 131/76 H 95 04/20/19 04:50 04/20/19 07:24 04/20/19 06:51 04/20/19 04:50 04/20/19 06:51 Oxygen Flow Rate (L/min) 2 Oxygen Delivery Method Nasal Cannula Weight: 133 lb 6.075 oz Body Mass Index (BMI) 25.4 Intake and Output for Last 24 Hours 04/18/19 04/19/19 04/20/19 23:59 23:59 23:59 Intake Total 1250 / 1250 1600 / 1600 1045 / 1045 Output Total 675 / 675 Balance 575 / 575 1600 / 1600 1045 / 1045 Laboratory Tests Past 24 Hrs 04/19/19 04/20/19 21:25 05:15 Sodium 135 L 137 Potassium 4.6 4.5 Chloride 100 102 Carbon Dioxide 27.0 28.0 Anion Gap 8 7 BUN 54 H 53 H Creatinine 2.50 H 2.04 H Estim Creat Clear Calc 13.97 17.12 Est GFR (MDRD) Af Amer 24 L 31 L Est GFR (MDRD) Non-Af 20 L 25 L BUN/Creatinine Ratio 21.6 H 26.0 H Glucose 285 H 264 H Calcium 8.6 8.0 L Phosphorus 3.4 Magnesium 2.3 POC Glucose 04/20/19 04/19/19 04/19/19 02:28 22:11 16:42 POC Glucose 186 H 252 H 334 H 04/19/19 04/19/19 11:26 08:04 POC Glucose 407 H 354 H Clinical Impression(s) from Imaging Studies Chest X-Ray 04/17/19 17:20 IMPRESSION: 1. Small right-sided effusion. 2. Limited inspiration. 3. Status post cardiac valvular replacement changes. An atrial appendage clip is seen. 4. There are calcified plaques of the aortic arch. 5. There is a bipolar left-sided pacemaker. Electronically Signed: Willie Van MD at 17:51 EDT , Service support , Medical Necessity - Tobacco Use Smoking Status: Former smoker Assessment/Plan All Active Problems (Last Updated 08/07/18 @ 15:53 by Phuong Flores) Pericarditis (Resolved) RECOMMENDATIONS: 1. Continue baseline Lasix regimen. 2. Continue bronchodilators as ordered. 3. Recommend a 5-day burst of prednisone 40 mg daily. 4. Outpatient pulmonary follow-up is already arranged on April 23. 5. Recommend outpatient PFTs, 6-minute walk test and polysomnogram. 6. At the time of her discharge, please send patient with an albuterol rescue inhaler as well. IMPRESSIONS: 1. Chronic hypoxemic respiratory failure/shortness of breath/presumptive COPD of unknown severity The patient presented to the hospital with complaints of shortness of breath, which is likely multifactorial in etiology. While she does have underlying heart failure with preserved ejection fraction along with pulmonary hypertension and chronic kidney disease, she has never required more than her baseline oxygen requirement of 3 L/min. She has a known recurrent right-sided pleural effusion, which has been transudative in the past. The patient has never been evaluated formally from a pulmonary perspective with PFTs. She does have an extensive smoking history, making the possibility of undertreated obstructive lung disease a potential contributing factor for the patient's dyspnea. At the current time, the patient can be continued on her diuretic regimen. I agree with continuing bronchodilators and steroids, as she was previously noted to have wheezing on exam. At discharge, I would recommend a 5-day burst of prednisone 40 mg daily. The patient is currently scheduled to be seen in the pulmonary medicine clinic on April 23. She undoubtedly needs to have pulmonary function studies completed and her outpatient inhaler regimen optimized. Perform walking oximetry study prior to consideration for discharge home. 2. Tobacco dependency, currently in remission The patient has a 20-63-ohwz-year smoking history, having quit completely 1 year ago. I would strongly recommend outpatient PFTs and further optimization of her inhaler regimen. 3. Daytime hypersomnolence The patient endorses symptoms concerning for underlying sleep disordered breathing, including nonrestorative sleep, daytime hypersomnolence and frequent napping. Therefore, I would recommend that the patient undergo a formal polysomnogram on an outpatient basis. Orders for testing can be placed at her pulmonary office visit on April 23. 4. Heart failure with preserved ejection fraction/pulmonary hypertension/paroxysmal atrial fibrillation/chronic kidney disease/diabetes mellitus Complicates care, management, recovery and prognosis. Continue current medical management. Perform walking oximetry study prior to consideration for discharge home. This note was generated with [employer] dictation software. It may contain incorrect words, spelling, and punctuation that were not noted in checking the note before signing. Code Visit Inpatient E&M: 59088 Subs Hosp L2
[2019-04-20] MEDS: APIXABAN 2.5 MG TABLET PO (08:34)
[2019-04-20] MEDS: Amiodarone 200 MG Tablet PO (08:36)
[2019-04-20] MEDS: predniSONE 20 MG Tablet 40 MG PO (08:36)
[2019-04-20] MEDS: Furosemide 40 MG Tablet PO (08:36)
[2019-04-20] MEDS: Metoprolol(XL)Succ 25 MG Tablet PO (08:37)
[2019-04-20] MEDS: Cyanocobalamin 500 MCG Tablet 1000 MCG PO (08:37)
[2019-04-20] MEDS: oxyCODONE 5 MG Tablet PO (08:42)
[2019-04-20] MEDS: Insulin Lispro 100 UNIT/ML INSULN.PEN 10 UNIT SC ×2 (09:30→11:56)
[2019-04-20] MEDS: Insulin Lispro 100 UNIT/ML INSULN.PEN SC ×2 (09:31→11:56)
[2019-04-20 09:41] LABS: Bedside Glucose 307 mg/dL (70-110)
[2019-04-20] MEDS: Polyethylene Glycol 3350 17 GM PACKET PO (10:00)
--- NOTE | 2019-04-20 11:05 | PCM.DC ---
- Discharge Diagnoses Current Active Problems: Current Active and Chronic Problems (Last Updated 08/07/18 @ 15:53 by Phuong Flores) CHF (congestive heart failure) (Chronic) You will use the following diet at home:: Other - Resume previous diet Your food should be the consistency of: Regular Your liquids should be the consistency of: Regular/Thin Discharge Activity: Return to Normal Activity, - - Avoid exposure to any strong smells such as bleach, cleaning products, strong colognes or perfumes, paint fumes and smoke of any kind. Avoid sudden exposure to cold air because this can cause bronchospasm. You may want to cover your mouth when you go outside in the winter. Avoid exposure to anyone who is sick with a cough or sore throat. Call your doctor if you observe: Fever of 101 or Higher, Shortness of breath, Dizziness, Fainting spells, Swelling in the ankles, Chest pain Instructions: What Is COPD?, Pursed-Lip Breathing, COPD: Using Inhalers, Diagnosing COPD Additional Instructions: For your back pain you can take 2 500 mg caplets of Tylenol every 8 hours. I am also giving you a prescription for a Lidocaine patch that you will apply to the area of the back that hurts every morning. You should remove the patch prior to going to bed. If the pain is still there in 1 week you ask your PCP to get some Xrays of your back. If you have never had a bone density study then ask your PCP to order a DEXA to evaluate your back and hips for osteoporosis(bone loss). You should get pulmonary function tests and a sleep study. You will be seeing Mary at the pulmonary clinic on Monday.....she will order the tests and then you will see Dr. Berger after the tests are done. I suspect you have chronic lung disease from smoking for a lot of years. I am glad you stopped....good job, it is not easy to do. You are most likely always get some shortness of breath with exertion. If you get short of breath, stop and rest and then when you feel better move on. Stay away from the triggers for bronchospasm listed in this document and you will have less exacerbations of lung disease. D NOT take the Lasix until Monday......increase your water intake for the next 2 days. Allergies/Adverse Reactions: Allergies simvastatin [From Zocor] Allergy (Verified 04/17/19 17:03) Unknown Medications to take at Discharge Apixaban [Eliquis] 2.5 mg PO BID 07/04/18 Insulin Lispro [Humalog] See Protocol SQ 4X/DAY 07/04/18 Furosemide [Lasix] 40 mg PO DAILY tab 07/24/18 ipratropium-albuterol 0.5 mg-3 mg(2.5 mg base)/3 mL nebulization soln 3 ml INHALATION 4X/DAY ml 09/24/18 metoprolol succinate ER 25 mg tablet,extended release 24 hr 25 mg PO DAILY 09/24/18 Amiodarone HCl 200 mg PO DAILY 04/17/19 Cholecalciferol (Vitamin D3) [Vitamin D3] 2,000 unit PO DAILY 04/17/19 Cyanocobalamin (Vitamin B-12) [B-12] 1,000 mcg PO DAILY 04/17/19 Fluticasone 110 Mcg [Flovent 110 Mcg] 2 puff INHALATION BID 04/17/19 Insulin Glargine,Hum.rec.anlog [Toujeo Solostar] 16 unit SQ QHS 04/17/19 Insulin Lispro [Humalog KwikPen] 5 unit SQ TIDCM 04/17/19 Tiotropium [place] [Spiriva] 2 puff INHALATION DAILY 04/17/19 Albuterol Inhaler [Ventolin Hfa (SP)] 1 - 2 puff INHALATION Q4H PRN PRN #1 inhaler 04/19/19 Prednisone 20 mg PO BID #8 tab 04/19/19 Lidocaine [Lidoderm Patch] 1 patch TOPICAL DAILY #7 patch 04/20/19 The following prescriptions were given: Lidocaine [Lidoderm Patch] 1 patch TOPICAL DAILY #7 patch Transmission Status: Pending to [address] Prednisone 20 mg PO BID #8 tab Transmission Status: Received by [address] Albuterol Inhaler [Ventolin Hfa (SP)] 1 - 2 puff INHALATION Q4H PRN PRN #1 inhaler PRN Reason: shortness of breath or wheezin Transmission Status: Received by [address] Primary Care Physician: Gianni Nava DO [Primary Care Provider] - Please follow up with your Primary Care Physician in: 5-7 days Test Results: Test results from this visit will be discussed in further detail at your follow-up appointment, if applicable. Please Follow Up With: Jas Teague NP-C Please Follow Up With: Mary Bush NP-C Please Follow Up With: pacer clinic Please Follow Up With: Srinivas Montgomery MD Proposed Discharge Date: 04/20/19
--- NOTE | 2019-04-20 11:22 | DS.PCM_ITS ---
Discharge Date and Diagnosis - Problem List Patient Problems: Active and Suspected Problems (Last Updated 08/07/18 @ 15:53 by Phuong Flores) Acute kidney injury (Acute) Date of Admission: 04/17/19 Date of Discharge: 04/20/19 - Primary Discharge Diagnosis Active and Suspected Problems (Last Updated 08/07/18 @ 15:53 by Phuong Flores) Acute diastolic CHF - ruled out Acute exacerbation presumed COPD Acute on chronic hypoxemic respiratory failure-required BiPAP to maintain saturations and control symptoms Acute kidney injury (Acute) - due to dehydration Hyperkalemia secondary to acute on chronic renal failure Sleep disordered breathing-suspected - Secondary Discharge Diagnosis Chronic Problems (Last Updated 08/07/18 @ 15:53 by Phuong Flores) Tobacco dependence in remission (Chronic) - quit smoking in 2018 chronic obstructive pulmonary disease (COPD) suspected, has never had PFT's Diastolic CHF (congestive heart failure) (Chronic) Sick sinus syndrome due to sinoatrial node dysfunction (Chronic) Non-rheumatic mitral valve stenosis (Chronic) CABG x 1 SVG-PDA , MVR w/ 25 mm tissue valve and R&L cryo-maze procedure w/ left atrial clip 11/20/17 Non-rheumatic mitral regurgitation (Chronic) CABG x 1 SVG-PDA , MVR w/ 25 mm tissue valve and R&L cryo-maze procedure w/ left atrial clip 11/20/17 Secondary pulmonary arterial hypertension (Chronic) Non-rheumatic tricuspid valve insufficiency (Chronic) Right bundle branch block (RBBB) (Chronic) H/O mitral valve replacement with cardiopulmonary bypass (Chronic 11/20/17) CABG x 1 SVG-PDA , MVR w/ 25 mm tissue valve and R&L cryo-maze procedure w/ left atrial clip 11/20/17 Presence of permanent cardiac pacemaker (Chronic 06/2018) [employer] Atherosclerosis of coronary artery of [place] heart without angina pectoris (Chronic) CABG x 1 SVG-PDA , MVR w/ 25 mm tissue valve and R&L cryo-maze procedure w/ left atrial clip 11/20/17 Paroxysmal atrial fibrillation (Chronic) Recurrent pleural effusion on right (Chronic) Mild aortic stenosis Concentric left ventricular hypertrophy Moderate pulmonary hypertension with a right ventricular systolic pressure estimated at 55 on echocardiogram Hospital Course and Treatment Imaging Results: Clinical Impression(s) from Imaging Studies Chest X-Ray 04/17/19 17:20 IMPRESSION: 1. Small right-sided effusion. 2. Limited inspiration. 3. Status post cardiac valvular replacement changes. An atrial appendage clip is seen. 4. There are calcified plaques of the aortic arch. 5. There is a bipolar left-sided pacemaker. Electronically Signed: Willie Van MD at 17:51 EDT , Service support , Laboratory Results - last 24 hr 04/19/19 04/19/19 04/19/19 11:26 16:42 21:25 Sodium 135 L Potassium 4.6 Chloride 100 Carbon Dioxide 27.0 Anion Gap 8 BUN 54 H Creatinine 2.50 H Estim Creat Clear Calc 13.97 Est GFR (MDRD) Af Amer 24 L Est GFR (MDRD) Non-Af 20 L BUN/Creatinine Ratio 21.6 H Glucose 285 H Calcium 8.6 Phosphorus Magnesium POC Glucose 407 H 334 H 04/19/19 04/20/19 04/20/19 22:11 02:28 05:15 Sodium 137 Potassium 4.5 Chloride 102 Carbon Dioxide 28.0 Anion Gap 7 BUN 53 H Creatinine 2.04 H Estim Creat Clear Calc 17.12 Est GFR (MDRD) Af Amer 31 L Est GFR (MDRD) Non-Af 25 L BUN/Creatinine Ratio 26.0 H Glucose 264 H Calcium 8.0 L Phosphorus 3.4 Magnesium 2.3 POC Glucose 252 H 186 H 04/20/19 08:53 Sodium Potassium Chloride Carbon Dioxide Anion Gap BUN Creatinine Estim Creat Clear Calc Est GFR (MDRD) Af Amer Est GFR (MDRD) Non-Af BUN/Creatinine Ratio Glucose Calcium Phosphorus Magnesium POC Glucose [address] John Berger-pulmonary medicine Operations: None Procedures: 2-D Echocardiogram - Interpretation Summary Concentric left ventricular hypertrophy. The estimated ejection fraction is 65 %. Unable to assess diastolic dysfunction. Prosthetic mitral valve apparatus that appears in stable position. There is an echodensity that appears to be at the base of the posterior mitral leaflet and may be calcification of of the submitral apparatus/ leaflet and mitral annulus. The echo from 06/26 was reviewed and this appears similar. No evidence of significant change. Moderate mitral valve stenosis. Mild tricuspid valve insufficiency. Pulmonary artery systolic pressure is 55 mmHg. Mild aortic stenosis. Trivial aortic valve insufficiency. Summary of Care Provided: The patient is a 73-year-old female with a past medical history of coronary artery disease, stage IV chronic renal failure, CABG x1 vessel, bioprosthetic mitral valve replacement, chronic hypoxic respiratory failure on 3 L/min of nasal O2 chronically, paroxysmal atrial fibrillation, chronic anticoagulation with Eliquis, pulmonary hypertension, recurrent right pleural effusions, diastolic congestive heart failure, concentric left ventricular hypertrophy, mild aortic stenosis, sick sinus syndrome and history of pacemaker placement who presented to the emergency department at [facility] on 04/17/2019 complaining of increasing shortness of breath over the preceding 2 to 3 days. She had been sent to the emergency department by her primary care physician for an elevated BNP. She complained of chest heaviness with no radiation. Vital signs at presentation to the emergency department were temperature 99 ?F, pulse rate 77, blood pressure 119/62, respiratory rate 20 and she was 97% saturated on a 3 L nasal cannula. Pulse ox on room air was also 97%. CBC showed a normal white blood cell count 7.5 with an unremarkable differential. Hemoglobin was 9.0 and platelets were within normal limits. BMP was remarkable for an elevated BUN at 38 with a creatinine of 1.98 which is within her baseline. Creatinine clearance is 17.63 and the GFR is 26 consistent with stage IV chronic renal failure. BNP was 446 which is actually not terribly elevated for somebody with stage IV chronic renal failure. Chest x-ray showed a small right pleural effusion with no significant PVC when compared to prior films. She was admitted to the hospital with a dx of acute on chronic CHF and was started on Bumex 1 mg IV Q 12H. Bumex was discontinued on 04/18 because acute diastolic CHF was ruled out. She was maintained on her home dose of Lasix. She was started on IV steroids and Dr. Berger was consulted. He recommended transition to prednisone and adding a rescue inhaler to her drug regimen. On 04/19/2019 her creatinine had increased to 2.5 from 1.91 on 04/18/2019. This is most likely the result of the IV diuretics at admission and polyuria caused by the elevated BS's due to high d ose steroids. Potassium was increased at 5.8. Lasix was discontinued and IV fluids were ordered. On 04/20/2019 the creatinine was down to 2.04 and the potassium is 4.5. Blood sugars remain elevated secondary to steroids but are improving with transition to Prednisone. HGBA1c is 6.4% so she is very well controlled, in fact probably too well controlled as an outpatient. It is important in this age range to avoid hypoglycemia. A HGBA1C < 7.5 would be acceptable. She was discharged home and instructed to hold Lasix until Monday and to increase her fluid intake. She has a appt with Mary Gallegos in the pulmonary office on Monday to arrange PFT's and a sleep study. She was given prescriptions for a tapering dose of prednisone over the next 5 days and a Ventolin MDI to use PRN for breakthrough wheezing and SOB. On the day of DC she c/o mid thoracic pain. She denied any recent falls. She was instructed to use Tylenol every 8 hours for pain and she was given a RX for a Lidocaine patch once daily. I instructed her to try this for a week and if there was no improvement I advised her to Talk with Dr. Nava about getting XRAYS. I strongly advised her not to take Motrin, Naprosyn or any other nonsteroidal anti-inflammatory drugs because of stage IV chronic renal failure.. - Physical Exam General: Alert, Oriented x3, Cooperative, No apparent distress HEENT: Atraumatic Oral: No Gingival or Mucosal Lesions/ Ulcerations, Dry Mucosa Neck: No Nodes, Trachea Midline Lungs: Clear to auscultation, better air exchange than at admission. No rhonchi, crackles or wheezing today. She is not tachypneic and has no conversational dyspnea. She is able to speak in full sentences. Abdomen: Bowel Sounds Present, Soft, Non Tender, Non-Distended Extremities: No edema Neurological: Cranial nerves II-XII grossly intact, Neuro grossly intact Psych/Mental Status: Normal Affect, Appropriate This note was generated with [email or web address] dictation software. It may contain incorrect words, spelling, and punctuation that were not noted in checking the note before signing. Patient Problems: Active and Suspected Problems (Last Updated 08/07/18 @ 15:53 by Phuong Flores) Acute kidney injury (Acute) - Physical Exam Vital Signs Temp Pulse Resp BP Pulse Ox 97.5 F L 87 16 137/77 H 94 04/20/19 08:10 04/20/19 08:37 04/20/19 08:10 04/20/19 08:10 04/20/19 08:10 Oxygen Flow Rate (L/min) 2 Oxygen Delivery Method Nasal Cannula Weight: 133 lb 6.075 oz Body Mass Index (BMI) 25.4 Intake and Output for Last 24 Hours 04/18/19 04/19/19 04/20/19 23:59 23:59 23:59 Intake Total 1250 / 1250 1600 / 1600 1045 / 1045 Output Total 675 / 675 Balance 575 / 575 1600 / 1600 1045 / 1045 Laboratory Tests Past 24 Hrs 04/19/19 04/20/19 21:25 05:15 Sodium 135 L 137 Potassium 4.6 4.5 Chloride 100 102 Carbon Dioxide 27.0 28.0 Anion Gap 8 7 BUN 54 H 53 H Creatinine 2.50 H 2.04 H Estim Creat Clear Calc 13.97 17.12 Est GFR (MDRD) Af Amer 24 L 31 L Est GFR (MDRD) Non-Af 20 L 25 L BUN/Creatinine Ratio 21.6 H 26.0 H Glucose 285 H 264 H Calcium 8.6 8.0 L Phosphorus 3.4 Magnesium 2.3 POC Glucose 04/20/19 04/20/19 04/19/19 08:53 02:28 22:11 POC Glucose 307 H 186 H 252 H 04/19/19 04/19/19 16:42 11:26 POC Glucose 334 H 407 H Discharge Activity: Return to Normal Activity, - - Avoid exposure to any strong smells such as bleach, cleaning products, strong colognes or perfumes, paint fumes and smoke of any kind. Avoid sudden exposure to cold air because this can cause bronchospasm. You may want to cover your mouth when you go outside in the winter. Avoid exposure to anyone who is sick with a cough or sore throat. Call your doctor if you observe: Fever of 101 or Higher, Shortness of breath, Dizziness, Fainting spells, Swelling in the ankles, Chest pain Home Medications: Medications to take at Discharge Apixaban [Eliquis] 2.5 mg PO BID 07/04/18 Insulin Lispro [Humalog] See Protocol SQ 4X/DAY 07/04/18 Furosemide [Lasix] 40 mg PO DAILY tab 07/24/18 ipratropium-albuterol 0.5 mg-3 mg(2.5 mg base)/3 mL nebulization soln 3 ml INHALATION 4X/DAY ml 09/24/18 metoprolol succinate ER 25 mg tablet,extended release 24 hr 25 mg PO DAILY 09/24/18 Amiodarone HCl 200 mg PO DAILY 04/17/19 Cholecalciferol (Vitamin D3) [Vitamin D3] 2,000 unit PO DAILY 04/17/19 Cyanocobalamin (Vitamin B-12) [B-12] 1,000 mcg PO DAILY 04/17/19 Fluticasone 110 Mcg [Flovent 110 Mcg] 2 puff INHALATION BID 04/17/19 Insulin Glargine,Hum.rec.anlog [Toujeo Solostar] 16 unit SQ QHS 04/17/19 Insulin Lispro [Humalog KwikPen] 5 unit SQ TIDCM 04/17/19 Tiotropium [place] [Spiriva] 2 puff INHALATION DAILY 04/17/19 Albuterol Inhaler [Ventolin Hfa (SP)] 1 - 2 puff INHALATION Q4H PRN PRN #1 inhaler 04/19/19 Prednisone 20 mg PO BID #8 tab 04/19/19 Lidocaine [Lidoderm Patch] 1 patch TOPICAL DAILY #7 patch 04/20/19 Following Prescrptions Were Given to Patient: Lidocaine [Lidoderm Patch] 1 patch TOPICAL DAILY #7 patch Transmission Status: Pending to [address] Prednisone 20 mg PO BID #8 tab Transmission Status: Received by [address] Albuterol Inhaler [Ventolin Hfa (SP)] 1 - 2 puff INHALATION Q4H PRN PRN #1 inhaler PRN Reason: shortness of breath or wheezin Transmission Status: Received by [address] Primary Care Physician: Gianni Nava DO [Primary Care Provider] - Please follow up with your Primary Care Physician in: 5-7 days Please Follow Up With: Jas Teague NP-C Please Follow Up With: Mary Bush NP-C Please Follow Up With: pacer clinic Please Follow Up With: Srinivas Montgmoery MD Patient Instructions: What Is COPD?, Pursed-Lip Breathing, COPD: Using Inhalers, Diagnosing COPD Minutes spent on discharge:: 35 Patient Condition:: Stable Medical Necessity - Tobacco Use Smoking Status: Former smoker - quit in 2018 Tobacco Use: Non-smoker Meaningful Use Info Meaningful Use Diagnoses (Choose all that apply): None applicable Code Visit Inpatient E&M: 42994 Disch Hosp
[2019-04-20 12:15] LABS: Bedside Glucose 291 mg/dL (70-110)
[2019-04-20] MEDS: Acetaminophen 500 MG Tablet 1000 MG PO (12:57)
--- NOTE | 2019-04-22 15:12 | CASEMGMT ---
Case Management DC F/u Call: DC Date: 04/20/19 DC Diagnosis: Acute diastolic CHF - ruled out, Acute exacerbation presumed COPD, Acute on chronic hypoxemic respiratory failure-required BiPAP to maintain saturations and control symptoms, Acute kidney injury (Acute) - due to dehydration , Hyperkalemia secondary to acute on chronic renal failure, Sleep disordered breathing-suspected DC Disposition: Home with Outpatient PT script. Script faxed to [place] for small portable tanks. Lace/Strata: 05/12 Called patient home number, Son Qasim answered and states that patient is not home and this mortgage or loan underwriter introduced self/role. States patient's back was hurting so bad that he called the ambulance last night and patient went to [facility]. Greg Pat RNCM
== END 2019-04-20 15:20 | disposition home or self-care (01) | DRG 291 ==
LOC: ED 18:54 → PCU 19:38
PROVIDERS: Admitting Provider Internal Medicine; Emergency Provider Emergency Medicine; Family Provider Preventive Medicine Occupational Medicine; PCP Preventive Medicine Occupational Medicine; Referring Provider Internal Medicine; Visit Provider Internal Medicine
DX: I50.32 Chronic diastolic (congestive) heart failure (principal); J96.21 Acute and chronic respiratory failure with hypoxia; N17.9 Acute kidney failure, unspecified; E44.0 Moderate protein-calorie malnutrition; N18.4 Chronic kidney disease, stage 4 (severe); E86.0 Dehydration; G47.30 Sleep apnea, unspecified; E87.5 Hyperkalemia; I48.0 Paroxysmal atrial fibrillation; Z95.0 Presence of cardiac pacemaker; I27.21 Secondary pulmonary arterial hypertension; I49.5 Sick sinus syndrome; Z95.3 Presence of xenogenic heart valve; Z95.1 Presence of aortocoronary bypass graft; I34.2 Nonrheumatic mitral (valve) stenosis; I36.1 Nonrheumatic tricuspid (valve) insufficiency; I25.10 Atherosclerotic heart disease of native coronary artery without angina pectoris; Z79.02 Long term (current) use of antithrombotics/antiplatelets; Z86.73 Personal history of transient ischemic attack (TIA), and cerebral infarction without residual deficits; D50.9 Iron deficiency anemia, unspecified; Z79.899 Other long term (current) drug therapy; Z79.4 Long term (current) use of insulin; E11.22 Type 2 diabetes mellitus with diabetic chronic kidney disease; Z68.26 Body mass index [BMI] 26.0-26.9, adult; D72.829 Elevated white blood cell count, unspecified; M54.6 Pain in thoracic spine; Z99.81 Dependence on supplemental oxygen; E11.649 Type 2 diabetes mellitus with hypoglycemia without coma; I35.0 Nonrheumatic aortic (valve) stenosis; F17.201 Nicotine dependence, unspecified, in remission; G47.10 Hypersomnia, unspecified
CPT/HCPCS: 36415; 71045; 80048; 80053; 80061; 82947; 82962; 83036; 83735; 83880; 84100; 84443; 84484; 85025; 93005; 93306; 94640; 97110; 97162; 97166; 97530; 99285; J7030; J7050; A4216; J1940

== ENCOUNTER 2019-04-22 10:11 | Observation (INO) | payer MEDICARE, OTHER, SELFPAY ==
[2019-04-22] VITALS (10 sets, daily range): BP systolic 105–133; BP diastolic 54–76; PULSE 84–105; RESP 18–20; TEMP 36.2–37.2; O2SAT 94–98; BMI 25.6; BMI 25.7
[2019-04-22 08:20] LABS: Bedside Glucose 284 mg/dL (70-110)
--- NOTE | 2019-04-22 10:17 | HP.PCM_ITS ---
Problem List (1) Back pain Status: Acute Qualifiers: Back pain location: thoracic back pain Chronicity: chronic Back pain laterality: right Qualified Code(s): M54.6 - Pain in thoracic spine; G89.29 - Other chronic pain (2) Leukocytosis Status: Acute Qualifiers: Leukocytosis type: unspecified Qualified Code(s): D72.829 - Elevated white blood cell count, unspecified History of Present Illness Date of Admission: 04/22/19 Chief Complaint: back pain The patient is a 73 year old F who was just discharged on the with an acute exacerbation of COPD. Patient was discharged home. Patient states that over the past couple weeks been having some upper back pain and just was worse last night and presented to outside emergency room. They did an x-ray that showed effusions. Patient also did have a white count of 16,000. In the emergency room patient received Pipracil and/tazobactam, IV furosemide, albuterol/ipratropium [place]. Patient is on chronic oxygen usually at 3 L, currently she is on 1 L. Patient denies any new shortness of breath. Patient was having some chest pain and she did have a troponin that was slightly elevated at 0.049. Patient was admitted to [facility] from the outside emergency room for evaluation of her abnormal chest x-ray. [] Past Medical History Past Medical History (Chronic Problems): Chronic Problems (Last Updated 04/20/19 @ 11:08 by Mary Kay Juarez DO) Tobacco dependence in remission (Chronic) Acute exacerbation of chronic obstructive pulmonary disease (COPD) (Chronic) CHF (congestive heart failure) (Chronic) Sick sinus syndrome due to sinoatrial node dysfunction (Chronic) Non-rheumatic mitral valve stenosis (Chronic) CABG x 1 SVG-PDA , MVR w/ 25 mm tissue valve and R&L cryo-maze procedure w/ left atrial clip 11/20/17 Non-rheumatic mitral regurgitation (Chronic) CABG x 1 SVG-PDA , MVR w/ 25 mm tissue valve and R&L cryo-maze procedure w/ left atrial clip 11/20/17 Secondary pulmonary arterial hypertension (Chronic) Non-rheumatic tricuspid valve insufficiency (Chronic) Right bundle branch block (RBBB) (Chronic) H/O mitral valve replacement with cardiopulmonary bypass (Chronic 11/20/17) CABG x 1 SVG-PDA , MVR w/ 25 mm tissue valve and R&L cryo-maze procedure w/ left atrial clip 11/20/17 Presence of permanent cardiac pacemaker (Chronic 06/2018) Medtronic Atherosclerosis of coronary artery of [place] heart without angina pectoris (Chronic) CABG x 1 SVG-PDA , MVR w/ 25 mm tissue valve and R&L cryo-maze procedure w/ left atrial clip 11/20/17 Paroxysmal atrial fibrillation (Chronic) Recurrent pleural effusion on right (Chronic) Medical History: Medical History (Last Reviewed 04/22/19 @ 10:20 by Neil Villagran DO) Sick sinus syndrome due to sinoatrial node dysfunction (Chronic) I49.5 Pericarditis (Resolved) I31.9 Non-rheumatic mitral valve stenosis (Chronic) I34.2 CABG x 1 SVG-PDA , MVR w/ 25 mm tissue valve and R&L cryo-maze procedure w/ left atrial clip 11/20/17 Non-rheumatic mitral regurgitation (Chronic) I34.0 CABG x 1 SVG-PDA , MVR w/ 25 mm tissue valve and R&L cryo-maze procedure w/ left atrial clip 11/20/17 Secondary pulmonary arterial hypertension (Chronic) I27.21 Non-rheumatic tricuspid valve insufficiency (Chronic) I36.1 Right bundle branch block (RBBB) (Chronic) I45.10 Atherosclerosis of coronary artery of [place] heart without angina pectoris (Chronic) I25.10 CABG x 1 SVG-PDA , MVR w/ 25 mm tissue valve and R&L cryo-maze procedure w/ left atrial clip 11/20/17 Acute on chronic diastolic (congestive) heart failure (Ruled-out) I50.33 Paroxysmal atrial fibrillation (Chronic) I48.0 Recurrent pleural effusion on right (Chronic) J90 (HFpEF) heart failure with preserved ejection fraction I50.30 COPD (chronic obstructive pulmonary disease) J44.9 CVA (cerebral vascular accident) I63.9 Chronic kidney disease, stage 3 N18.3 Dysphagia R13.10 Iron deficiency anemia D50.9 Type 2 diabetes mellitus E11.9 Sepsis A41.9 Allergies simvastatin [From Zocor] Allergy (Verified 04/17/19 17:03) Unknown Home Medications: Ambulatory Orders Medication Instructions Recorded Apixaban [Eliquis] 2.5 mg PO BID 07/04/18 Insulin Lispro [Humalog] See Protocol SQ 4X/DAY 12/26/18 Furosemide [Lasix] 40 mg PO DAILY tab 07/24/18 ipratropium-albuterol 0.5 mg-3 3 ml INHALATION 4X/DAY ml 09/24/18 mg(2.5 mg base)/3 mL nebulization soln metoprolol succinate ER 25 mg 25 mg PO DAILY 09/24/18 tablet,extended release 24 hr Amiodarone HCl 200 mg PO DAILY 04/17/19 Cholecalciferol (Vitamin D3) 2,000 unit PO DAILY 04/17/19 [Vitamin D3] Cyanocobalamin (Vitamin B-12) 1,000 mcg PO DAILY 04/17/19 [B-12] Fluticasone 110 Mcg [Flovent 110 2 puff INHALATION BID 04/17/19 Mcg] Insulin Glargine,Hum.rec.anlog 16 unit SQ QHS 04/17/19 [Toujeo Solostar] Insulin Lispro [Humalog KwikPen] 5 unit SQ TIDCM 04/17/19 Tiotropium [place] [Spiriva] 2 puff INHALATION DAILY 04/17/19 Albuterol Inhaler [Ventolin Hfa 1 - 2 puff INHALATION Q4H PRN PRN 04/19/19 (SP)] #1 inhaler Prednisone 20 mg PO BID #8 tab 04/19/19 Lidocaine [Lidoderm Patch] 1 patch TOPICAL DAILY #7 patch 04/20/19 Surgical History: Surgical History (Last Reviewed 04/22/19 @ 10:20 by Neil Villagran DO) H/O mitral valve replacement with cardiopulmonary bypass (Chronic) Onset Date: 11/20/17 Z95.2 CABG x 1 SVG-PDA , MVR w/ 25 mm tissue valve and R&L cryo-maze procedure w/ left atrial clip 11/20/17 Presence of permanent cardiac pacemaker (Chronic) Onset Date: 06/2018 Z95.0 Medtr[employer] History of maze procedure Onset Date: 11/20/17 Z98.890 Cryo Maze w/ left atrial clip for atrial fib History of thoracentesis Onset Date: 07/23/18 Z98.890 07/11/18, 07/12/18, 07/23/18 Hx of cholecystectomy Z90.49 Surgical History: cholecystectomy, coronary bypass surgery, - - Mitral valve replacement, and permanent pacemaker. Smoking Status: Former smoker - *Family History Maternal Family History: Family History (Last Reviewed 04/22/19 @ 10:20 by Neil Villagran DO) Mother Diabetes Heart disease Hypertension Father Heart disease Hypertension Diabetes CVA (cerebral vascular accident) History Items: Diabetes, Heart Disease, Hypertension Paternal Family History: Family History (Last Reviewed 04/22/19 @ 10:20 by Neil Villagran DO) Mother Diabetes Heart disease Hypertension Father Heart disease Hypertension Diabetes CVA (cerebral vascular accident) History Items: Cancer, Diabetes, Heart Disease, Hypertension, Stroke Review of Systems Constitutional: Denies: Anorexia, Fever, Night Sweats Eyes: Denies: Double vision HEENT: Denies: Head Aches, Sinus Congestion, Sinus Drainage Cardiovascular: Reports: Chest Pain. Denies: Edema, Palpitations Respiratory: Denies: Cough, Shortness of breath at rest, Sputum production Gastrointestinal: Denies: Abdominal Pain, Constipation Genitourinary: Denies: Dysuria, Frequency Musculoskeletal: Reports: Back Pain, Shoulder Pain. Denies: Arm Pain Skin: Denies: Rash, Wounds Neurological: Denies: Numbness, Tingling, Focal weakness Psychiatric: Denies: Anxiety, Depression Endocrine: Denies: Change in Body Habitus, Heat/ Cold Intolerance Hematologic/ Lymphatic: Reports: Easy Bruising. Denies: Easy Bleeding Comment: A 10 point review of systems were negative except as mentioned in the history of present illness and the other review of systems. VTE Information - Inpt Only VTE Present on Admission: No VTE Mechan Device Prophylaxis: None VTE Pharm Prophylaxis ordered?: No Patient Problems: Active and Suspected Problems (Last Updated 04/20/19 @ 11:08 by Mary Kay Juarez DO) Back pain (Acute) Leukocytosis (Acute) - Physical Exam General: Alert, Cooperative, No apparent distress, - - Appears older than stated age HEENT: Atraumatic, Normocephalic, - - No icterus Oral: Moist Mucosa, No Gingival or Mucosal Lesions/ Ulcerations Neck: No Nodes, Thyroid Normal Size and Texture Lungs: Clear to auscultation, Normal air movement, No rhonchi, No wheeze, No rales, - - Dullness to percussion in the bases Cardiovascular: Regular rate, Regular Rhythm, Normal S1, Normal S2 Abdomen: Bowel Sounds Present, Soft, Non Tender, Non-Distended, No Hepato- splenomegaly Extremities: No edema, No Calf Tenderness Skin: No rashes, No breakdown Musculoskeletal: No Tenderness to Palpation of Joints or Extremities, Muscle Wasting, - - Tender palpation over the upper right paraspinal muscles in the thoracic region. Patient had reproducible anterior chest wall tenderness Neurological: Muscle tone normal, Gait narrow based and stable Psych/Mental Status: Normal Affect, Appropriate Vital Signs Temp Pulse Resp BP Pulse Ox 36.2 C L 98 18 124/76 H 96 04/22/19 06:55 04/22/19 07:29 04/22/19 06:55 04/22/19 06:55 04/22/19 06:55 Oxygen Flow Rate (L/min) 2 Oxygen Delivery Method Nasal Cannula Weight: 59.6 kg Body Mass Index (BMI) 25.6 POC Glucose 04/22/19 08:14 POC Glucose 284 H Chest x-ray from outside facility showed bilateral pleural effusions with poor inspiratory effort, no infiltrate was appreciated. CBC showed a white count of 16.6, hemoglobin 10.2, platelets of 275. Percent neutrophils 87.2% lymphocytes 4.9 Urinalysis shows to gravity about 1.01, glucose 250, small blood, small leuk esterase, 5-10 white blood cells, 3+ bacteria BMP: Sodium 139, potassium 3.9, creatinine 1.75 Troponin 0 0.049 Assessment/Plan All Active Problems (Last Updated 04/20/19 @ 11:08 by Mary Kay Juarez DO) Back pain (Acute) Leukocytosis (Acute) Hyperkalemia (Resolved) Dehydration (Resolved) Acute kidney injury (Acute) Pericarditis (Resolved) Acute on chronic diastolic (congestive) heart failure (Ruled-out) 1. Back pain * This is actually not acute but just worse and then had been over the past few weeks. Exam is consistent with muscle strain on the upper right thoracic region. Patient was present prescribed a lidocaine but did not receive it. Would recommend continue with lidocaine as well as acetaminophen. I explained to the patient I would not be prescribing her narcotics for this musculoskeletal pain. Patient has no warning signs of any kind of neurologic disorder nerve impingement spinal fracture at this time so additional imaging is not necessary 2. Leukocytosis * Currently 16.6 * Was normal at 7.2 back on the 11th * Clinically, patient does not appear to be sick from any infectious source at this time * Patient received 3 antibiotics over at the outside hospital: Vancomycin, piperacillin/tazobactam, and azithromycin * I will hold off on any additional antibiotics at this time and observe * Urinalysis did show 3+ bacteria but it was otherwise negative for any infection and thus will not treat, at this time 3. Chest pain * Musculoskeletal in etiology * Troponin was minimally elevated prior that may be skewed given her chronic kidney disease * We will continue to cycle troponins 4. Pleural effusions * Chronic * Clinically, patient is not decompensated anyway and her oxygen requirements are actually less than when she is on at home * Previously, had a thoracentesis back in July and that was consistent with transudate of effusion * Will increase her furosemide from 40 daily to twice daily 5. Heart failure with preserved ejection fraction * Appears to be pretty well compensated at this time as she has no JVD * Ejection fraction was 65% from echocardiogram performed on the . Would be complicated by the patient's underlying pulmonary hypertension. Patient did have pulmonary artery systolic pressure of 55 mmHg at that time. * Fluid restriction * Patient is not a candidate for BAILEE inhibitor nor angiotensin receptor blockers given her chronic kidney disease 6. Chronic kidney disease stage IV * Creatinine appears better than what she was on the * Monitor 7. Diabetes mellitus type 2 * A1c is 6.4 from April 18 * Continue with basal and prandial insulin. Sliding scale as well. 8. Paroxysmal atrial fibrillation * continue metoprolol * apixaban. 9. His care planning: I discussed with patient. Patient is unsure what she wants at this time. Therefore patient will be full CODE STATUS. Code Visit Inpatient E&M: 64208 Init Hosp L3
[2019-04-22 12:01] LABS: Bedside Glucose 277 mg/dL (70-110)
[2019-04-22] MEDS: Insulin Lispro 100 UNIT/ML INSULN.PEN SC ×4 (13:11→17:54)
[2019-04-22] MEDS: Acetaminophen 325 MG Tablet 650 MG PO ×2 (13:16→19:20)
[2019-04-22] MEDS: Ipratropium/Albuterol Sulfate 3 ML AMPUL.NEB INHALATION ×2 (14:19→18:55)
--- NOTE | 2019-04-22 15:01 | CASEMGMT ---
Addendum entered by Shonda Guy 04/22/19 15:20: This RN CM received a voicemail message from pt's sister, Beatrice, stating that she just found out from another family member that pt had been readmitted to [facility] at this time. Beatrice asks if CM can try again to assist pt with any resources needed at discharge. José RN CM Original Note: This RN CM received a call from pt's sister, Beatrice Rowe, and she expresses concerns regarding pt's last stay with a discharge date of 04/20/19. This RN CM immediately informs sister that this RN CM cannot share any pt information with her at this time, sister voices understanding, but states would still like some general advice/resources. She states that pt should have been set up with help at home and this RN CM advised her that any pt has to be agreeable to any resource for it to be set up. Sister states 'Well, she probably wouldn't agree to anything anyway.' Sister states concerns that pt is not making good decisions at this time but states that she feels pt 'is in her right mind.' Sister states that this started a year ago after the pt had heart surgery. Sister states she is just venting frustration at this time and would like to know where to start if there is a pt that is making bad decisions and this RN CM suggested that family start with pt's PCP. Sister states that pt's sons are living with her currently but that the one that lives with her all the time is 'incapable of caring for himself, let alone her(pt)' and states that the other son lives in [place] but has been staying with his mom to help lately but is unsure how long he will stay. Pt's sister states that this son is so frustrated and unsure what to do with pt at this time. Sister's contact info [phone]. Sister also states that pt called her last pm and told her that her blood sugar was 597 and that pt stated she did not know what to take at that time. Barbara, pharmacist, notified about pt need for more med education at this time, voices understanding. José CASTILLO CM
[2019-04-22] MEDS: Lidocaine 5% Patch 1 PATCH TOPICAL (15:07)
[2019-04-22 16:40] LABS: Bedside Glucose 178 mg/dL (70-110)
[2019-04-22] MEDS: predniSONE 20 MG Tablet PO (17:53)
[2019-04-22] MEDS: Furosemide 40 MG Tablet PO (19:20)
[2019-04-22] MEDS: APIXABAN 2.5 MG TABLET PO (21:58)
[2019-04-22 22:06] LABS: Bedside Glucose 246 mg/dL (70-110)
[2019-04-23] VITALS (11 sets, daily range): BP systolic 104–129; BP diastolic 49–73; PULSE 93–106; RESP 14–20; TEMP 36.3–36.7; O2SAT 93–100
[2019-04-23] MEDS: Acetaminophen 325 MG Tablet 650 MG PO ×3 (03:07→15:44)
[2019-04-23 06:44] LABS: Absolute Lymphocyte Count 0.62 X10^3/uL (0.83-4.51); Absolute Neutrophil Count 11.9 X10^3/uL (2.0-7.7); Basophil# 0.01 X10^3/uL; Basophil% 0.1 % (0-1); Eosinophil# 0.03 X10^3/uL; Eosinophils% 0.2 % (0-5); Hematocrit 31.8 % (37-47); Hemoglobin 9.7 g/dL (12.0-15.0); Lymphocyte # 0.62 X10^3/ul (4.0); Lymphocyte % 4.7 % (19-41); Mean Corp Hgb Conc 30.5 g/dL (32-36); Mean Corpuscular Hgb 28.9 pg (27.0-32.0); Mean Corpuscular Volume 94.6 fL (81-99); Mean Platelet Vol. 10.1 fl (6.2-12.0); Monocyte# 0.63 X10^3/uL; Monocyte% 4.7 % (0-10); NRBC Flagged by Analyzer 0 % (0-5); Neutrophil # 11.87 X10^3/uL (2.7-7.7); Neutrophil % 89.1 % (47-70); Platelet Count 222 K/mm3 (150-450); RBC Distribution Width CV 15.6 % (11.6-14.6); Red Blood Count 3.36 M/mm3 (4.2-5.4); White Blood Count 13.3 K/mm3 (4.4-11.0)
[2019-04-23 07:07] LABS: Anion Gap 6 (5-15); BUN 49 mg/dL (7-18); BUN/Creat Ratio 25.3 RATIO (10-20); Calcium,Total 8.1 mg/dL (8.5-10.1); Chloride 101 mmol/L (98-107); Creatinine, Serum 1.94 mg/dL (0.55-1.02); EST Glomerular Filtration Rate 27 mL/min (>60); Est Glom Filt Rate - Afr Amer 32 mL/min (>60); Glucose 306 mg/dL (74-106); Potassium 4.2 mmol/L (3.5-5.1); Sodium Level 140 mmol/L (136-145)
[2019-04-23] MEDS: Ipratropium/Albuterol Sulfate 3 ML AMPUL.NEB INHALATION ×3 (07:08→14:53)
[2019-04-23] MEDS: Insulin Lispro 100 UNIT/ML INSULN.PEN SC ×4 (08:10→12:48)
[2019-04-23] MEDS: predniSONE 20 MG Tablet PO (08:10)
[2019-04-23] MEDS: Amiodarone 200 MG Tablet PO (08:14)
[2019-04-23 08:15] LABS: Bedside Glucose 252 mg/dL (70-110)
[2019-04-23] MEDS: Cyanocobalamin 500 MCG Tablet 1000 MCG PO (08:15)
[2019-04-23] MEDS: APIXABAN 2.5 MG TABLET PO (08:15)
[2019-04-23] MEDS: Furosemide 40 MG Tablet PO (08:15)
[2019-04-23] MEDS: Metoprolol(XL)Succ 25 MG Tablet PO (08:15)
[2019-04-23] MEDS: Lidocaine 5% Patch 1 PATCH TOPICAL (08:16)
--- NOTE | 2019-04-23 11:07 | CASEMGMT ---
Addendum entered by Shonda Guy 04/23/19 11:49: Todd from [facility] aware of pt referral at this time and pt provided with Todd's [facility] business card at this time. José CASTILLO CM Original Note: This RN CM to room with LAINEZ form at this time, explanation done-pt voices understanding, and pt signs LAINEZ form at this time. Original to chart and copy to pt at this time. Pt also states interest in meals on wheels and someone to clean her house at this time. Pt states that she does have difficulty managing her meds and is agreeable to [facility] being referred at this time. Matti FLOREZ aware of pt need for MOW and agricultural crop farm manager resources at this time. Pt voices no further questions/concerns/needs at this time. José CASTILLO CM
[2019-04-23 11:40] LABS: Bedside Glucose 179 mg/dL (70-110)
--- NOTE | 2019-04-23 12:06 | DCINST_ITS ---
- Discharge Diagnoses Current Active Problems: Current Active and Chronic Problems (Last Reviewed 04/22/19 @ 10:20 by Neil Villagran DO) Back pain (Acute) Leukocytosis (Acute) You will use the following diet at home:: Cardiac, Fluid restricted (specify 2000 mls, 1500 mls) - 1500 Your food should be the consistency of: Regular Your liquids should be the consistency of: Regular/Thin Discharge Activity: Return to Normal Activity Call your doctor if you observe: Shortness of breath Allergies/Adverse Reactions: Allergies simvastatin [From Zocor] Allergy (Verified 04/17/19 17:03) Unknown Medications to take at Discharge Apixaban [Eliquis] 2.5 mg PO BID 07/04/18 Insulin Lispro [Humalog] See Protocol SQ 4X/DAY 07/04/18 Furosemide [Lasix] 40 mg PO DAILY tab 07/24/18 ipratropium-albuterol 0.5 mg-3 mg(2.5 mg base)/3 mL nebulization soln 3 ml INHALATION 4X/DAY ml 09/24/18 metoprolol succinate ER 25 mg tablet,extended release 24 hr 25 mg PO DAILY 09/24/18 Amiodarone HCl 200 mg PO DAILY 04/17/19 Cholecalciferol (Vitamin D3) [Vitamin D3] 2,000 unit PO DAILY 04/17/19 Cyanocobalamin (Vitamin B-12) [B-12] 1,000 mcg PO DAILY 04/17/19 Fluticasone 110 Mcg [Flovent 110 Mcg] 2 puff INHALATION BID 04/17/19 Insulin Glargine,Hum.rec.anlog [Toucaity [place]] 16 unit SQ QHS 04/17/19 Insulin Lispro [Humalog KwikPen] 5 unit SQ TIDCM 04/17/19 Tiotropium [place] [Spiriva] 2 puff INHALATION DAILY 04/17/19 Albuterol Inhaler [Ventolin Hfa] 1 - 2 puff INHALATION Q4H PRN PRN #1 inhaler 04/19/19 Acetaminophen 2 tab PO 4X/DAY PRN #1 tablet 04/23/19 Lidocaine [Lidocaine 5%] 35 gm TOPICAL TID PRN #1 tube 04/23/19 Prednisone 20 mg PO BID #8 tab 04/23/19 The following prescriptions were given: Acetaminophen 2 tab PO 4X/DAY PRN #1 tablet PRN Reason: pain Lidocaine [Lidocaine 5%] 35 gm TOPICAL TID PRN #1 tube PRN Reason: Pain Or Fever Transmission Status: Pending to [facility] [address] Primary Care Physician: Gianni Nava DO [Primary Care Provider] - Within 1 Week Test Results: Test results from this visit will be discussed in further detail at your follow- up appointment, if applicable. Please Follow Up With: Srinivas Montgomery MD When: 08/15/2019 Proposed Discharge Date: 04/23/19
--- NOTE | 2019-04-23 12:10 | DS.PCM_ITS ---
Discharge Date and Diagnosis - Problem List Patient Problems: Active and Suspected Problems (Last Reviewed 04/22/19 @ 10:20 by Neil Villagran DO) Back pain (Acute) Leukocytosis (Acute) Date of Admission: 04/22/19 Date of Discharge: 04/23/19 - Primary Discharge Diagnosis Active and Suspected Problems (Last Reviewed 04/22/19 @ 10:20 by Neil Villagran DO) Back pain (Acute) Leukocytosis (Acute) - Secondary Discharge Diagnosis Chronic Problems (Last Reviewed 04/22/19 @ 10:20 by Neil Villagran DO) Tobacco dependence in remission (Chronic) Acute exacerbation of chronic obstructive pulmonary disease (COPD) (Chronic) CHF (congestive heart failure) (Chronic) Sick sinus syndrome due to sinoatrial node dysfunction (Chronic) Non-rheumatic mitral valve stenosis (Chronic) CABG x 1 SVG-PDA , MVR w/ 25 mm tissue valve and R&L cryo-maze procedure w/ left atrial clip 11/20/17 Non-rheumatic mitral regurgitation (Chronic) CABG x 1 SVG-PDA , MVR w/ 25 mm tissue valve and R&L cryo-maze procedure w/ left atrial clip 11/20/17 Secondary pulmonary arterial hypertension (Chronic) Non-rheumatic tricuspid valve insufficiency (Chronic) Right bundle branch block (RBBB) (Chronic) H/O mitral valve replacement with cardiopulmonary bypass (Chronic 11/20/17) CABG x 1 SVG-PDA , MVR w/ 25 mm tissue valve and R&L cryo-maze procedure w/ left atrial clip 11/20/17 Presence of permanent cardiac pacemaker (Chronic 06/2018) [employer] Atherosclerosis of coronary artery of [place] heart without angina pectoris (Chronic) CABG x 1 SVG-PDA , MVR w/ 25 mm tissue valve and R&L cryo-maze procedure w/ left atrial clip 11/20/17 Paroxysmal atrial fibrillation (Chronic) Recurrent pleural effusion on right (Chronic) Hospital Course and Treatment Operations: None Procedures: None Summary of Care Provided: The patient is a 73 year old F presents soon outside hospital with back pain. X-ray that showed at the outside hospital showed pleural effusions. Patient received IV Lasix as well as IV antibiotics at the outside facility. Very mine, the patient slowly went to the emergency room because of back pain. Outside hospital want to bring patient back to [facility] the patient was just discharged 2 days prior. Patient was brought in, her chest x-ray was evaluated and was consistent with her known pleural effusions. Patient did have a leukocytosis count of 16.6 but previous have been normal during the week. Patient clinically was not infected and so antibiotics were not continued. Patient did have back pain that was reproducible more consistent with muscle strain involving the paraspinal muscles. Given patient's age and multiple comorbidities, discussed not utilizing narcotics and recommended acetaminophen as well as lidocaine. Patient was in agreement with that. Today, patient is feeling better. The plan is for the patient to take acetaminophen up to 4 g/day and went over in great detail with her about utilizing 2 tablets of 100 mg up to 4 times per day and also using Lidoderm ointment. Patient was prescribed lidocaine patches when she was here patient states that she was not prescribed but the lidocaine patches tend to be very expensive and sometimes prohibitively expensive for some patients so I am going to utilize the ointment as that tends to be more affordable patient may use the ointment up to 2-3 times per day as needed. Patient was very concerned that if she would have back pain in the middle night that what she should do. I recommended that she use heating pad if necessary but try to reassure her to that hopefully that she would be able to avoid going to the emergency room buttocks explained to her that if it is severe enough and if it is during off hours then she may have to return to the emergency room. 1. Back pain * This is actually not acute but just worse and then had been over the past few weeks. Exam is consistent with muscle strain on the upper right thoracic region. Patient was present prescribed a lidocaine but did not receive it. Would recommend continue with lidocaine as well as acetaminophen. I explained to the patient I would not be prescribing her narcotics for this musculoskeletal pain. Patient has no warning signs of any kind of neurologic disorder nerve impingement spinal fracture at this time so additional imaging is not necessary 2. Leukocytosis * Currently 16.6 * Was normal at 7.2 back on the 11 * Clinically, patient does not appear to be sick from any infectious source at this time * Patient received 3 antibiotics over at the outside hospital: Vancomycin, piperacillin/tazobactam, and azithromycin * I will hold off on any additional antibiotics at this time and observe * Urinalysis did show 3+ bacteria but it was otherwise negative for any infection and thus will not treat, at this time 3. Chest pain * Musculoskeletal in etiology * Troponin was minimally elevated prior that may be skewed given her chronic kidney disease * We will continue to cycle troponins 4. Pleural effusions * Chronic * Clinically, patient is not decompensated anyway and her oxygen requirements are actually less than when she is on at home * Previously, had a thoracentesis back in July and that was consistent with transudate of effusion * Will increase her furosemide from 40 daily to twice daily 5. Heart failure with preserved ejection fraction * Appears to be pretty well compensated at this time as she has no JVD * Ejection fraction was 65% from echocardiogram performed on the . Would be complicated by the patient's underlying pulmonary hypertension. Patient did have pulmonary artery systolic pressure of 55 mmHg at that time. * Fluid restriction * Patient is not a candidate for BAILEE inhibitor nor angiotensin receptor blockers given her chronic kidney disease 6. Chronic kidney disease stage IV * Creatinine appears better than what she was on the * Monitor 7. Diabetes mellitus type 2 * A1c is 6.4 from April 18 * Continue with basal and prandial insulin. Sliding scale as well. 8. Paroxysmal atrial fibrillation * continue metoprolol * apixaban.[] Patient Problems: Active and Suspected Problems (Last Reviewed 04/22/19 @ 10:20 by Neil Villagran DO) Back pain (Acute) Leukocytosis (Acute) - Physical Exam General: Alert, No apparent distress HEENT: Atraumatic, Normocephalic Oral: Moist Mucosa, No Gingival or Mucosal Lesions/ Ulcerations Neck: No Nodes, Thyroid Normal Size and Texture Lungs: Clear to auscultation, Normal air movement, - - crackles in bases Cardiovascular: Regular rate, Regular Rhythm, Normal S1, Normal S2 Abdomen: Bowel Sounds Present, Soft, Non Tender, Non-Distended Psych/Mental Status: Normal Affect, Appropriate Vital Signs Temp Pulse Resp BP Pulse Ox 36.6 C 105 H 20 H 116/67 100 04/23/19 08:22 04/23/19 11:04 04/23/19 11:04 04/23/19 08:22 04/23/19 08:22 Oxygen Flow Rate (L/min) 1 Oxygen Delivery Method Nasal Cannula Weight: 59.6 kg Body Mass Index (BMI) 25.6 Intake and Output for Last 24 Hours 04/21/19 04/22/19 04/23/19 23:59 23:59 23:59 Intake Total 650 / 650 50 / 50 Output Total 200 / 200 Balance 450 / 450 50 / 50 Laboratory Tests Past 24 Hrs 04/22/19 04/23/19 04/23/19 13:30 05:55 05:55 WBC 13.3 H RBC 3.36 L Hgb 9.7 L Hct 31.8 L MCV 94.6 MCH 28.9 MCHC 30.5 L RDW Std Deviation 54.0 H RDW Coeff of Dom 15.6 H Plt Count 222 MPV 10.1 Immature Gran % (Auto) 1.200 H Neut % (Auto) 89.1 H Lymph % (Auto) 4.7 L [place] % (Auto) 4.7 Eos % (Auto) 0.2 Baso % (Auto) 0.1 Absolute Neuts (auto) 11.9 H Absolute Lymphs (auto) 0.62 L Nucleated RBC % 0 Sodium 140 Potassium 4.2 Chloride 101 Carbon Dioxide 33.0 H Anion Gap 6 BUN 49 H Creatinine 1.94 H Estim Creat Clear Calc 18.00 Est GFR (MDRD) Af Amer 32 L Est GFR (MDRD) Non-Af 27 L BUN/Creatinine Ratio 25.3 H Glucose 306 H Calcium 8.1 L Troponin I 0.027 POC Glucose 04/23/19 04/23/19 04/22/19 11:20 08:08 21:56 POC Glucose 179 H 252 H 246 H 04/22/19 16:27 POC Glucose 178 H Discharge Diet: Low fat/ Low Cholesterol, 6 Cup Fluid Restriction, 2000 mg Sodium Diet Discharge Activity: Return to Normal Activity Call your doctor if you observe: Shortness of breath Home Medications: Medications to take at Discharge Apixaban [Eliquis] 2.5 mg PO BID 07/04/18 Insulin Lispro [Humalog] See Protocol SQ 4X/DAY 07/04/18 Furosemide [Lasix] 40 mg PO DAILY tab 07/24/18 ipratropium-albuterol 0.5 mg-3 mg(2.5 mg base)/3 mL nebulization soln 3 ml INHALATION 4X/DAY ml 09/24/18 metoprolol succinate ER 25 mg tablet,extended release 24 hr 25 mg PO DAILY 09/24/18 Amiodarone HCl 200 mg PO DAILY 04/17/19 Cholecalciferol (Vitamin D3) [Vitamin D3] 2,000 unit PO DAILY 04/17/19 Cyanocobalamin (Vitamin B-12) [B-12] 1,000 mcg PO DAILY 04/17/19 Fluticasone 110 Mcg [Flovent 110 Mcg] 2 puff INHALATION BID 04/17/19 Insulin Glargine,Hum.rec.anlog [Toujeo Solostar] 16 unit SQ QHS 04/17/19 Insulin Lispro [Humalog KwikPen] 5 unit SQ TIDCM 04/17/19 Tiotropium [place] [Spiriva] 2 puff INHALATION DAILY 04/17/19 Albuterol Inhaler [Ventolin Hfa] 1 - 2 puff INHALATION Q4H PRN PRN #1 inhaler 04/19/19 Acetaminophen 2 tab PO 4X/DAY PRN #1 tablet 04/23/19 Lidocaine [Lidocaine 5%] 35 gm TOPICAL TID PRN #1 tube 04/23/19 Prednisone 20 mg PO BID #8 tab 04/23/19 Following Prescrptions Were Given to Patient: Acetaminophen 2 tab PO 4X/DAY PRN #1 tablet PRN Reason: pain Lidocaine [Lidocaine 5%] 35 gm TOPICAL TID PRN #1 tube PRN Reason: Pain Or Fever Transmission Status: Pending to [address] Primary Care Physician: Gianni Nava DO [Primary Care Provider] - Within 1 Week Please Follow Up With: Srinivas Montgomery MD When: 08/15/2019 Disposition: Home Minutes spent on discharge:: 32 Patient Condition:: Fair Medical Necessity - Tobacco Use Smoking Status: Former smoker Meaningful Use Info Meaningful Use Diagnoses (Choose all that apply): None applicable Code Visit OBSV E&M: 21757 Observation care discharge
--- NOTE | 2019-04-23 13:06 | CASEMGMT ---
SW gave patient information on [employer] Whe[employer] as well as [facility] card. Kavya CARCAMO MSW
--- NOTE | 2019-04-23 14:51 | PHA.DC.COU ---
Pharmacy Services has performed diabetic education upon discharge to the hospital. Saw the patient per Case Management request regarding concerns about compliance with insulin regimen. Pharmacy printed a sliding scale for the patient to use while taking her sliding scale insulin. Educated the patient on importance of compliance, injection techniques, signs of hyper and hypoglycemia, hypoglycemia management, interpretation of insulin regimen. The patient showed some understanding, but could use reinforcement and education regarding the matter. Pharmacy also planning on going back into the room to test her knowledge regarding insulin regimen prior to discharge after the patient has time to further look at information provided to her. The patient's questions regarding all of their medications were answered.
--- NOTE | 2019-04-23 15:21 | CASEMGMT ---
Per Qiana RN, pt does not have a ride home and states that she is going to walk home. Pt also needs a portable oxygen tank to get home. Pt initially refuses for this RN CM to call her son Cabrera but then reluctantly agrees when this RN CM informs her that he needs to bring one of her tanks and come get her. Pt states 'He's busy.' Pt states that her other son, Qasim, does not drives. This RN CM placed a call to the number listed for son Cabrera at this time and pt's son, Qasim, answers phone and states that he doesn't know where his brother is and he doesn't know his cell number. This RN CM then informed Qasim that someone was going to have to come pick pt up and he states 'I don't know what to tell you' and refused to give this RN CM the name/number of anyone else that could come get pt. This RN CM placed call to [facility] and they states that they can deliver a tank to pt but it might be a little bit. This RN CM back to room with a list of pt's contacts to inform pt what Qasim said and to see if pt has another number for Cabrera. Pt refuses to give this RN CM Cabrera's number and refuses for this RN CM to call her sister or niece that are listed on her contact list. This RN CM informed pt that she needs to get home somehow and made her aware that [facility] is bringing her a tank. [facility] van and [employer] transportation will no longer be running by the time the tank arrives. Pt states she will take a cab but wants to know what the go would be. Call to [employer] and per rep, for transport from [facility] to pt's address, cost will be $26.63. Pt updated and agreeable at this time. Pt is aware that cab cannot be called to get her until her tank arrives, voices understanding. Pt is sitting on side of bed dressed and voices no further questions/concerns/needs at this time. heraclio Engle RN, and Qiana RN, updated at this time, voice understanding. SStaten RN CM
--- NOTE | 2019-04-23 15:25 | NURSING ---
Care assumed from Qiana Andres RN
--- NOTE | 2019-04-23 16:17 | NURSING ---
Pt sitting up in wheelchair waiting for son to return w/ O2 tank and then will be taking her home. Pt denies needs at this time.
--- NOTE | 2019-04-23 17:06 | NURSING ---
Addendum entered by Alyssa Nascimento 04/23/19 17:12: Patient's son also drove patient home, doing away with the need for a taxi. Original Note: Patient's son arrived and stated he could run home and retrieve patient's personal O2 tank. He returned with personal tank and this RN canceled portable tank with [facility].
== END 2019-04-23 12:09 | disposition home or self-care (01) ==
PROVIDERS: Admitting Provider Internal Medicine; Family Provider Preventive Medicine Occupational Medicine; PCP Preventive Medicine Occupational Medicine; Referring Provider Internal Medicine; Visit Provider Internal Medicine
DX: M54.6 Pain in thoracic spine (principal); D72.829 Elevated white blood cell count, unspecified; G89.29 Other chronic pain; J44.9 Chronic obstructive pulmonary disease, unspecified; I25.10 Atherosclerotic heart disease of native coronary artery without angina pectoris; I48.0 Paroxysmal atrial fibrillation; I27.21 Secondary pulmonary arterial hypertension; E11.22 Type 2 diabetes mellitus with diabetic chronic kidney disease; I50.30 Unspecified diastolic (congestive) heart failure; N18.4 Chronic kidney disease, stage 4 (severe); Z99.81 Dependence on supplemental oxygen; Z79.899 Other long term (current) drug therapy; Z79.01 Long term (current) use of anticoagulants; Z79.4 Long term (current) use of insulin; Z95.1 Presence of aortocoronary bypass graft; Z95.0 Presence of cardiac pacemaker; Z95.2 Presence of prosthetic heart valve; Z87.891 Personal history of nicotine dependence
CPT/HCPCS: 36415; 80048; 82962; 84484; 85025; 94640; 97166; 99218; G0378; G0379

== ENCOUNTER → 2019-11-22 | Outpatient (CLI) | payer MEDICARE, OTHER, SELFPAY ==
[2019-11-22 10:16] VITALS: BMI 28.1
[2019-11-22 15:15] LABS: AST(SGOT) 19 U/L (15-37); Alanine Aminotransfer ALT/SGPT 19 U/L (13-56); Albumin, Serum 3.1 g/dL (3.2-5.0); Alkaline Phosphatase 168 U/L (45-117); Anion Gap 5 (5-15); BUN 24 mg/dL (7-18); BUN/Creat Ratio 14.3 RATIO (10-20); Bilirubin, Direct 0.11 mg/dL (0.00-0.30); Calcium,Total 8.5 mg/dL (8.5-10.1); Chloride 107 mmol/L (98-107); Creatinine, Serum 1.68 mg/dL (0.55-1.02); EST Glomerular Filtration Rate 32 mL/min (>60); Est Glom Filt Rate - Afr Amer 38 mL/min (>60); Globulin 3.7 g/dL (2.2-4.2); Glucose 108 mg/dL (74-106); Potassium 4.8 mmol/L (3.5-5.1); Protein, Total 6.8 g/dL (6.4-8.2); Sodium Level 143 mmol/L (136-145); Thyroid Stim Hormone (TSH) 3.75 uIU/mL (0.358-3.74)
== END | disposition home or self-care (01) ==
PROVIDERS: PCP Preventive Medicine Occupational Medicine; Referring Provider Physician Assistant Medical; Visit Provider Physician Assistant Medical
DX: I50.33 Acute on chronic diastolic (congestive) heart failure (principal); I48.0 Paroxysmal atrial fibrillation; Z79.899 Other long term (current) drug therapy
CPT/HCPCS: 36415; 80048; 80076; 84443

== ENCOUNTER → 2021-01-19 15:47 | Outpatient (CLI) | payer MEDICARE, OTHER, SELFPAY ==
[2020-07-23 13:19] VITALS: BMI 25.7
--- NOTE | 2021-01-19 16:11 | RAD_ITS ---
STUDY: X-RAY CHEST REASON FOR EXAM: Female, 75 years old. Shelter Current use of Amiodarone TECHNIQUE: AP and lateral views of the chest. COMPARISON: Comparison is made with prior study 04/17/2019. FINDINGS: Minimal increased linear markings at the left lung base most likely representing mild scarring. There is no demonstrated pleural abnormality. Sternal cerclage wires are present from a prior sternotomy. Prior mitral valve replacement and clipping of the left atrium. A left-sided dual-chamber pacemaker is seen. Normal mediastinum and billy. Normal visualized pulmonary arteries. There is atherosclerotic calcification of the aortic arch with tortuosity. There is a dextroscoliosis of the thoracic spine. Normal visualized ribs, clavicles, and shoulders. There is no demonstrated abnormality of the visualized soft tissue structures of the upper abdomen. RAD/Chest PA and Lateral IMPRESSION: Minimal increased linear markings at the left lung base linear scarring. Electronically Signed: Davdi Santamaria MD at 15:28 EDT , Service support ,
[2021-01-19 17:31] LABS: ALB/GLOB Ratio 0.7 RATIO (0.9-2.4); AST(SGOT) 26 U/L (15-37); Alanine Aminotransfer ALT/SGPT 28 U/L (13-56); Alkaline Phosphatase 171 U/L (45-117); Anion Gap 3 (5-15); BUN 27 mg/dL (7-18); BUN/Creat Ratio 14.8 RATIO (10-20); Calcium,Total 8.7 mg/dL (8.5-10.1); Chloride 101 mmol/L (98-107); Creatinine, Serum 1.82 mg/dL (0.55-1.02); EST Glomerular Filtration Rate 29 mL/min (>60); Est Glom Filt Rate - Afr Amer 35 mL/min (>60); Globulin 4.1 g/dL (2.2-4.2); Glucose 68 mg/dL (74-106); Potassium 4.1 mmol/L (3.5-5.1); Protein, Total 7.1 g/dL (6.4-8.2); Sodium Level 139 mmol/L (136-145); T4 Free Direct 1.17 ng/dL (0.76-1.46); Thyroid Stim Hormone (TSH) 7.56 uIU/mL (0.358-3.74)
== END ==
PROVIDERS: PCP Preventive Medicine Occupational Medicine; Referring Provider Nurse Practitioner Gerontology; Visit Provider Nurse Practitioner Gerontology
DX: I48.0 Paroxysmal atrial fibrillation (principal); R60.9 Edema, unspecified; Z79.899 Other long term (current) drug therapy
CPT/HCPCS: 36415; 71046; 80053; 84439; 84443

== ENCOUNTER → 2021-02-19 13:07 | Outpatient (CLI) | payer MEDICARE, OTHER, SELFPAY ==
[2020-07-23 13:19] VITALS: BMI 25.7
--- NOTE | 2021-02-20 08:03 | PFT ---
INTRODUCTION: The patient is a 75-year-old female who presented for pulmonary function studies secondary to a diagnosis of long-term drug therapy. Respiratory therapy reported good patient effort. Bronchodilators were used during testing. INTERPRETATION: Forced expiration spirometry demonstrates the presence of a severe large airways obstructive ventilatory defect. There was no significant response to aerosolized bronchodilators. Spirograms are of fair quality but do not plateau indicating slow emptying of the lungs. Body plethysmography was performed and revealed a decreased TLC to 3.05 L, 77% of predicted, indicative of a mild restrictive ventilatory impairment. Diffusing capacity by single breath CO is severely reduced at 18% of predicted. IMPRESSION: Irreversible severe mixed ventilatory defect with symmetric reduction in diffusing capacity. There are no previous pulmonary function studies available for comparison.
== END ==
PROVIDERS: PCP Preventive Medicine Occupational Medicine; Referring Provider Nurse Practitioner Gerontology; Visit Provider Nurse Practitioner Gerontology
DX: I48.0 Paroxysmal atrial fibrillation (principal); Z79.899 Other long term (current) drug therapy
CPT/HCPCS: 94060; 94726; 94729